=== PATIENT | female | born 1965 | race Caucasian/White ===

== ENCOUNTER → 2017-12-31 12:43 | Outpatient (REF) | payer OTHER, SELFPAY ==
[2017-12-31 14:06] LABS: ALT 23 U/L (12-78); AST 20 U/L (15-37); Albumin 3.9 g/dL (3.4-5.0); Alkaline Phosphatase 88 U/L (46-116); Anion Gap 11.2 mmol/L (3-11); BUN 7 mg/dL (7-18); Bilirubin, Total 0.3 mg/dL (0.2-1.0); CO2 25.8 mmol/L (21.0-32.0); CREATININE 0.63 mg/dL (0.55-1.02); Calcium 8.6 mg/dL (8.5-10.1); Chloride 103 mmol/L (98-107); Glucose 107 mg/dL (70-100); Potassium 4.4 mmol/L (3.5-5.1); Sodium 140 mmol/L (136-145); Total Protein 7.3 g/dL (6.4-8.2)
[2017-12-31 14:49] LABS: HCT 40.8 % (36.0-46.0); HGB 13.7 g/dL (12.0-15.5); Mean Corp. HGB Concentration 33.6 g/dL (32.0-36.0); Mean Corpuscular Hemoglobin 31.9 pg (27.0-33.0); Mean Corpuscular Volume 95.1 fL (80-95); Mean Platelet Volume 10.3 fL (8.0-11.0); Platelet Count 253 x1000/uL (130-400); RBC 4.29 m/cumm (4.00-5.20); RBC Distribution Width 13.6 % (11.7-14.6); White Blood Cell Count 7.58 k/cumm (4.4-10.8)
== END ==
LOC: NCHCN 12:43
PROVIDERS: PCP Nurse Practitioner Family; Visit Provider Nurse Practitioner Family
DX: M79.606 Pain in leg, unspecified (principal); Z01.89 Encounter for other specified special examinations
CPT/HCPCS: 80053; 85027

== ENCOUNTER → 2018-01-16 19:27 | Outpatient (REF) | payer OTHER, SELFPAY ==
[2018-01-16 19:59] LABS: Anion Gap 9.3 mmol/L (3-11); BUN 11 mg/dL (7-18); CO2 25.7 mmol/L (21.0-32.0); CREATININE 0.63 mg/dL (0.55-1.02); Calcium 8.7 mg/dL (8.5-10.1); Chloride 103 mmol/L (98-107); Glucose 176 mg/dL (70-100); Potassium 4.1 mmol/L (3.5-5.1); Sodium 138 mmol/L (136-145)
[2018-01-16 20:09] LABS: Bilirubin Negative (Negative); Blood Negative (Negative); Clarity Cloudy; Glucose Negative (Negative); Ketones Negative (Negative); Leukocyte Esterase Negative (Negative); Nitrite Negative (Negative); Specific Gravity >= 1.030 (1.005-1.025); Urobilinogen 0.2 EU/dL (Up TO 0.2); pH 5.5 (5-8)
[2018-01-16 20:25] LABS: HDL Cholesterol 92 mg/dL (40-60); LDL CHOLESTEROL 107 mg/dL (<100)
== END ==
LOC: NCHCN 19:27
PROVIDERS: PCP Nurse Practitioner Family; Visit Provider Nurse Practitioner Family
DX: I10 Essential (primary) hypertension (principal); I73.9 Peripheral vascular disease, unspecified
CPT/HCPCS: 80048; 83721; 81003; 83718

== ENCOUNTER 2018-01-30 20:01 | Outpatient (REF) | payer OTHER, SELFPAY ==
[2018-01-30 21:35] LABS: Anion Gap 8.5 mmol/L (3-11); BUN 13 mg/dL (7-18); CO2 28.5 mmol/L (21.0-32.0); CREATININE 0.64 mg/dL (0.55-1.02); Calcium 8.6 mg/dL (8.5-10.1); Chloride 102 mmol/L (98-107); Glucose 189 mg/dL (70-100); Potassium 4.5 mmol/L (3.5-5.1); Sodium 139 mmol/L (136-145)
== END 2018-01-30 20:21 ==
LOC: NCHCN 20:01
PROVIDERS: PCP Nurse Practitioner Family; Visit Provider Nurse Practitioner Family
DX: I10 Essential (primary) hypertension (principal)
CPT/HCPCS: 80048

== ENCOUNTER 2019-01-29 09:01 | Outpatient (CLI) | payer SELFPAY ==
[2019-01-29 10:33] LABS: Calculated LDL 55 mg/dL; Cholesterol 149 mg/dL (50-200); HDL Cholesterol 81 mg/dL (40-60); Triglyceride 69 mg/dL (30-150)
== END 2019-01-29 09:21 ==
PROVIDERS: PCP Nurse Practitioner Family; Visit Provider Internal Medicine Cardiovascular Disease
DX: I73.9 Peripheral vascular disease, unspecified (principal)
CPT/HCPCS: 36415; 80061

== ENCOUNTER 2020-03-12 03:31 | Outpatient (CLI) | payer OTHER, SELFPAY ==
--- NOTE | 2020-03-12 | DI.US_ITS ---
EXAM: US SOFT TISSUE EXTREMITY CLINICAL HISTORY: LT THUMB PAIN, ? GANGLION CYST,M79.645. TECHNIQUE: Ultrasound was performed using standard protocol. COMPARISON: No exams were available for comparison FINDINGS: Sonographic assessment utilizing grayscale and color Doppler imaging was performed and targeted to th e area of clinical concern. No ganglion cyst or mass is identified. No soft tissue edema is seen. No joint effusion is seen. IMPRESSION: Negative ultrasound of the left thumb. No ganglion cyst is identified. DATA REPOSITORY:
== END 2020-03-12 03:51 ==
PROVIDERS: PCP Nurse Practitioner Family; Visit Provider Nurse Practitioner Family
DX: M79.645 Pain in left finger(s) (principal)
CPT/HCPCS: 76881

== ENCOUNTER 2020-12-13 09:45 | Outpatient (REF) | payer OTHER, MEDICAID, SELFPAY ==
[2020-12-13 13:33] LABS: HCT 41.4 % (36.0-46.0); HGB 13.9 g/dL (11.2-15.7); MCH 31.2 pg (27.0-33.0); MCHC 33.6 % (32.0-36.0); MPV 10.2 fL (8.0-11.0); Platelet Count 314 10^3/uL (130-400); RBC 4.45 10^6/uL (3.93-5.22); RDW 14.6 % (11.7-14.6); RDW-SD 50.4 fL; WBC 7.19 10^3/uL (4.4-10.8)
[2020-12-13 14:06] LABS: Hemoglobin A1C 6.4 % (<5.7)
[2020-12-13 14:09] LABS: ALT 31 U/L (14-59); AST 23 U/L (15-37); Albumin 4.2 g/dL (3.4-5.0); Alkaline Phosphatase 102 U/L (46-116); Anion Gap 4.5 mmol/L (3-11); BUN 11 mg/dL (7-18); Bilirubin, Total 0.3 mg/dL (0.2-1.0); CO2 26.5 mmol/L (21.0-32.0); CREATININE 0.6 mg/dL (0.55-1.02); Calcium 9.4 mg/dL (8.5-10.1); Calculated LDL 79 mg/dL (<100); Chloride 107 mmol/L (98-107); Cholesterol 171 mg/dL (<200); Glucose 123 mg/dL (74-106); HDL Cholesterol 86 mg/dL (40-60); Potassium 3.9 mmol/L (3.5-5.1); Sodium 138 mmol/L (136-145); Total Protein 7.5 g/dL (6.4-8.2); Triglyceride 34 mg/dL (<150); Vitamin B12 425 pg/mL (193-986)
== END 2020-12-13 09:46 | disposition home or self-care (01) ==
LOC: NCHCN 09:45
PROVIDERS: PCP Nurse Practitioner Family; Visit Provider Nurse Practitioner
DX: R73.09 Other abnormal glucose (principal); I10 Essential (primary) hypertension; F32.9 Major depressive disorder, single episode, unspecified; I73.9 Peripheral vascular disease, unspecified; F10.11 Alcohol abuse, in remission
CPT/HCPCS: 80053; 80061; 85027; 82607; 83036

== ENCOUNTER 2021-10-19 16:43 | Outpatient (REF) | payer MEDICAID, SELFPAY ==
[2021-10-19 16:18] LABS: ALT 35 U/L (14-59); AST 20 U/L (15-37); Albumin 4.2 g/dL (3.4-5.0); Alkaline Phosphatase 110 U/L (46-116); Anion Gap 9.7 mmol/L (3-11); BUN 9 mg/dL (7-18); Bilirubin, Total 0.4 mg/dL (0.2-1.0); CO2 26.3 mmol/L (21.0-32.0); CREATININE 0.6 mg/dL (0.55-1.02); Calculated LDL 85 mg/dL (<100); Chloride 106 mmol/L (98-107); Cholesterol 182 mg/dL (<200); Glucose 129 mg/dL (74-106); HDL Cholesterol 90 mg/dL (40-60); Potassium 4.6 mmol/L (3.5-5.1); Sodium 142 mmol/L (136-145); Total Protein 7.4 g/dL (6.4-8.2); Triglyceride 38 mg/dL (<150)
[2021-10-19 17:59] LABS: Hemoglobin A1C 6.4 % (<5.7)
== END 2021-10-19 16:44 | disposition home or self-care (01) ==
LOC: NCHCN 16:43
PROVIDERS: PCP Nurse Practitioner Family; Visit Provider Nurse Practitioner Family
DX: R73.09 Other abnormal glucose (principal); I10 Essential (primary) hypertension; F17.200 Nicotine dependence, unspecified, uncomplicated; I73.9 Peripheral vascular disease, unspecified
CPT/HCPCS: 80053; 80061; 83036

== ENCOUNTER 2022-09-04 16:16 | Outpatient (REF) | payer MEDICAID, SELFPAY ==
[2022-09-04 16:56] LABS: Abs Immature Grans 0.02 10^3/uL (0.0-0.06); Absolute Basophil Count 0.05 10^3/uL (0.0-0.2); Absolute Eosinophil Count 0.03 10^3/uL (0.0-0.7); Absolute Lymphocyte Count 2.57 10^3/uL (1.2-3.4); Absolute Monocyte Count 0.53 10^3/uL (0.1-0.8); Absolute Neutrophil Count 5.89 10^3/uL (1.2-6.7); Basophils % 0.6; Eosinophils % 0.3; HCT 38.6 % (36.0-46.0); Immature Grans % 0.2; Lymphocytes % 28.3; MCH 31.3 pg (27.0-33.0); MCHC 33.7 % (32.0-36.0); MCV 93 fL (80-95); MPV 10.2 fL (8.0-11.0); Monocytes % 5.8; Neutrophils % 64.8; Platelet Count 344 10^3/uL (130-400); RBC 4.15 10^6/uL (3.93-5.22); RDW 14.1 % (11.7-14.6); RDW-SD 48.2 fL; WBC 9.09 10^3/uL (4.4-10.8)
[2022-09-04 17:19] LABS: Iron 73 ug/dL (50-170); Total Iron Binding Capacity 315 ug/dL (250-450); Transferrin Sat 23 % (15-50)
[2022-09-04 17:24] LABS: Hemoglobin A1C 6.8 % (<5.7)
[2022-09-04 17:59] LABS: ALT 27 U/L (14-59); AST 22 U/L (15-37); Albumin 4.3 g/dL (3.4-5.0); Alkaline Phosphatase 103 U/L (46-116); Anion Gap 8.6 mmol/L (3-11); BUN 13 mg/dL (7-18); Bilirubin, Total 0.4 mg/dL (0.2-1.0); CO2 26.4 mmol/L (21.0-32.0); CREATININE 0.6 mg/dL (0.55-1.02); Chloride 106 mmol/L (98-107); Estimated GFR 105.28 (mL/min/1.73m2); Ferritin 118 ng/mL (8-252); Glucose 111 mg/dL (74-106); Potassium 4.2 mmol/L (3.5-5.1); Sodium 141 mmol/L (136-145); TSH (W/Ref FT4) 0.92 uIU/mL (0.36-3.74); Total Protein 7.5 g/dL (6.4-8.2); Vitamin B12 448 pg/mL (193-986)
== END 2022-09-04 16:17 | disposition home or self-care (01) ==
LOC: NCHCN 16:16
PROVIDERS: PCP Nurse Practitioner Family; Visit Provider Nurse Practitioner Family
DX: I10 Essential (primary) hypertension (principal); R63.4 Abnormal weight loss; F10.20 Alcohol dependence, uncomplicated; R73.03 Prediabetes; F17.210 Nicotine dependence, cigarettes, uncomplicated; I73.89 Other specified peripheral vascular diseases; R73.09 Other abnormal glucose; R79.89 Other specified abnormal findings of blood chemistry
CPT/HCPCS: 80053; 82607; 82728; 83036; 83540; 83550; 84443; 85025

== ENCOUNTER 2022-09-06 07:48 | Outpatient (CLI) | payer MEDICAID, SELFPAY ==
--- NOTE | 2022-09-06 | DI.RAD_ITS ---
Exam(s) XR CHEST 2V PA LATERAL EXAM: XR CHEST 2V PA LATERAL CLINICAL HISTORY: ABNL WT LOSS, R63.4,TOBACCO ABUSE, F17.200 TECHNIQUE: 2D digital imaging was performed of the chest. Two images were obtained. PA and lateral views were obtained. COMPARISON: No exams were available for comparison FINDINGS: MEDIASTINUM: Normal. HEART: Normal. PULMONARY VASCULATURE: Normal. LUNGS: Clear. PLEURAL SPACE: No pleural effusion or pneumothorax. BONE:Within normal limits for the patient's age. OTHER FINDINGS:Normal. IMPRESSION: No acute pulmonary findings. DATA REPOSITORY: RADIATION DOSE DELIVERED:
== END 2022-09-06 08:08 ==
LOC: DI 07:49
PROVIDERS: PCP Nurse Practitioner Family; Visit Provider Nurse Practitioner Family
DX: R63.4 Abnormal weight loss (principal); F17.200 Nicotine dependence, unspecified, uncomplicated
CPT/HCPCS: 71046

== ENCOUNTER 2022-09-26 01:22 | Outpatient (CLI) | payer MEDICAID, SELFPAY ==
--- NOTE | 2022-09-26 | DI.CTLCSR_ITS ---
Exam(s) CT CHEST LUNG CANCER SCREEN EXAM: CT CHEST LUNG CANCER SCREEN CLINICAL HISTORY: SCREENING FOR LUNG CA, TOBACCO ABUSE, F17.200. TECHNIQUE: Imaging Protocol: Low Dose Technique CONTRAST MATERIAL: None COMPARISON: CR XR CHEST 2V PA LATERAL from 09/06/2022 FINDINGS: CHEST: LUNGS: There are no ominous pulmonary nodules. There are no confluent infiltrates. No pleural effusi ons. MEDIASTINUM: There is no obvious hilar nor mediastinal adenopathy. CARDIAC: Heart size is normal. There is no pericardial effusion.Caliber of the thoracic aorta is wit hin normal limits. OTHER: OSSEOUS: No significant osseous lesions.No fractures.. IMPRESSION: 1. No significant pulmonary nodules. No infiltrates 2. No pleural effusions. 3. Lung RADS Cat 1 - Negative: No nodules and definitely benign nodules Lung-RADS 1.0 CATEGORIES: Category 0 - Prior chest CT exam(s) being located for comparison. Category 1 - Annual screening in 12 months. No nodules or definitely benign nodules. Category 2 - Annual screening in 12 months. Benign appearance. Nodules with low likelihood of becomin g active cancer. Category 3 - 6-month follow-up. Probably benign. Short-term follow-up suggested. Nodules with low lik elihood of becoming active cancer. Category 4A - 3-month follow-up and CT/PET if >8 mm in size. Suspicious finding. Findings which requi re additional testing. Category 4B - Findings which require additional testing and tissue sampling. Category 4X - Category 3 or 4 nodules with additional features or imaging findings that increases the suspicion of malignancy. Modifier S- Potentially clinically significant findings (non lung cancer) RADIATION DOSE DELIVERED: 77.24mGy.cm Total DLP DATA REPOSITORY: All CT scans at this facility are submitted to the National Radiology Data Registry (NRDR) Dose Index Registry (DIR) with the [employer] (ACR). RADIATION OPTIMIZATION: All CT scans at this facility use at least one of these dose optimization te chniques: automated exposure control; mA and/or kV adjustment per patient size (includes targeted exa ms where dose is matched to clinical indication); or iterative reconstruction.
== END 2022-09-26 01:42 ==
LOC: DI 01:22
PROVIDERS: PCP Nurse Practitioner Family; Visit Provider Nurse Practitioner Family
DX: F17.200 Nicotine dependence, unspecified, uncomplicated (principal)
CPT/HCPCS: 71271

== ENCOUNTER 2022-10-31 00:42 | Outpatient (CLI) | payer MEDICAID, SELFPAY ==
--- NOTE | 2022-10-31 08:01 | DI.MAMMO_ITS ---
Exam(s) MAMMO SCREENING EXAM: MAMMO SCREENING CLINICAL HISTORY: SCREENING, Z12.39. TECHNIQUE: Bilateral full field digital CC and MLO mammographic images were obtained with 3D tomosyn thesis and utilizing computer aided detection (CAD). COMPARISON: None. This is a baseline mammogram on this 57-year-old patient. FINDINGS: There are no CAD designations. No significant findings in left breast. In the right breast there is a lobulated 1.2 x1.0 cm nodule the medial aspect of the breast located a pproximately 7 cm in from the nipple on the CC view. There are no malignant-appearing microcalcifica tion groups in this region nor elsewhere in either breast. There is no significant architectural distortion nor skin thickening-retraction. IMPRESSION: 1. No radiographic evidence of malignancy in left breast. 2. There is a nodule in the medial aspect of the right breast measuring approximately 12 x 10 mm. Sp ot compression view and ultrasound recommended. BI-RADS Category 0 - Assessment Incomplete: Need additional imaging evaluation Breast Density - Category B - Scattered areas of fibroglandular density Breast density Category C or D implies that the patient has dense breast tissue. Dense breast tissue can make it harder to find cancer on a mammogram. Dense breast tissue is also associated with an incr eased risk of breast cancer. This information about the result of the mammogram report was provided to the patient to raise their awareness. Use this report when you speak with the patient about their risks for breast cancer, which includes their family history. At that time, you may recommend additional screening tests (Ultrasoun d or MRI) as these tests may add significant information. A negative radiographic report should not delay biopsy if a dominant or clinically suspicious mass is present. Up to ten percent of cancers are not identified on mammography. A negative report may reinforce clinical impression. Adenosis and dense breasts may obscure an underlying neoplasm. False positive reports average 6 to 10%. Patient will receive a letter notifying them of these results.
== END 2022-10-31 01:02 ==
LOC: DI 00:43
PROVIDERS: PCP Nurse Practitioner Family; Visit Provider Nurse Practitioner Family
DX: Z12.31 Encounter for screening mammogram for malignant neoplasm of breast (principal); R92.8 Other abnormal and inconclusive findings on diagnostic imaging of breast
CPT/HCPCS: 77063; 77067

== ENCOUNTER 2022-11-10 00:18 | Outpatient (CLI) | payer MEDICAID, SELFPAY ==
--- NOTE | 2022-11-10 | DI.US_ITS ---
Exam(s) MG MAMMO SCREEN CALL BACK UNI US BREAST RT LIMITED EXAM: MG MAMMO SCREEN CALL BACK UNI and U/S breast RT limited CLINICAL HISTORY: NODULE RT BREAST R92.8 ABNL MAMMO. TECHNIQUE: Craniocaudal and mediolateral oblique Full Field Digital Mammography views of the right b reast with Computer Aided Diagnosis followed by Tomosynthesis and right breast ultrasound. COMPARISON: Comparison is made with prior examinations. FINDINGS: Mammography/Tomosynthesis: Masses/Architectural Distortion: The ovoid soft tissue in the medial right breast persists on of the right CC view. It is less prominent on the right MLO additional view. No areas of architectural dis tortion are seen. Microcalcifictions: No suspicious pleomorphic-type are seen. Skin Thickening/Nipple Retraction: None. Limited right breast US: Echotexture: Normal appearance of the glandular tissue. Shadowing: No suspicious foci. Cyst: There is a 3 x 2 x 4 mm cyst in the retroareolar region of the right breast. Solid lesions: There is an ovoid nodule at the 3 o'clock position of the right breast 3 cm from the n ipple measuring 1 x 3 x 1 cm. This would appear to correspond to the mammographic abnormality. This may represent a benign lesion such as a fibroadenoma. Ductal dilation: None. IMPRESSION: 1. No definite evidence for malignancy is noted at this time. 2. A six-month follow-up right mammogram and right breast ultrasound are requested for re-evaluation. 3. The findings were discussed with the patient on the date of the examination. BI-RADS Category 3 - 6 month - Probably Benign Finding: Recommend follow-up imaging in 6 months Breast Density - Category C - Heterogeneously dense Breast density Category C or D implies that the patient has dense breast tissue. Dense breast tissue can make it harder to find cancer on a mammogram. Dense breast tissue is also associated with an incr eased risk of breast cancer. This information about the result of the mammogram report was provided to the patient to raise their awareness. Use this report when you speak with the patient about their risks for breast cancer, which includes their family history. At that time, you may recommend additional screening tests (Ultrasoun d or MRI) as these tests may add significant information. A negative radiographic report should not delay biopsy if a dominant or clinically suspicious mass is present. Up to ten percent of cancers are not identified on mammography. A negative report may reinforce clinical impression. Adenosis and dense breasts may obscure an underlying neoplasm. False positive reports average 6 to 10%. Patient will receive a letter notifying them of these results.
== END 2022-11-10 00:38 ==
LOC: DI 00:18
PROVIDERS: PCP Nurse Practitioner Family; Visit Provider Nurse Practitioner Family
DX: Z12.31 Encounter for screening mammogram for malignant neoplasm of breast (principal); N60.01 Solitary cyst of right breast; N63.12 Unspecified lump in the right breast, upper inner quadrant
CPT/HCPCS: 76642; 77063; 77067

== ENCOUNTER → 2023-05-15 00:38 | Outpatient (CLI) | payer MEDICAID, SELFPAY ==
--- NOTE | 2023-05-15 | DI.US_ITS ---
Exam(s) MG MAMMO DIAGNOSTIC UNI US BREAST RT LIMITED EXAM: MG MAMMO DIAGNOSTIC UNI CLINICAL HISTORY: ABNL MAMMO R92.8 6 MO FU. TECHNIQUE: Craniocaudal and mediolateral oblique spot compression digital Mammography views of the b reast with Tomosynthesis and breast ultrasound. COMPARISON: MG MG MAMMO SCREENING from 10/31/2022 MG MG MAMMO SCREEN CALL BACK UNI from 11/10/2022 US US BREAST RT LIMITED from 11/10/2022 FINDINGS: Mammography/Tomosynthesis: Masses/Architectural Distortion: No change in ovoid circumscribed nodule in the medial right breast. Microcalcifictions: No suspicious pleomorphic-type are seen. Skin Thickening/Nipple Retraction: None. Right breast US: Echotexture: Normal appearance of the glandular tissue. Shadowing: No suspicious foci. Cyst: None. Solid lesions: Stable appearance of circumscribed ovoid isoechoic nodule a 9 millimeters. Ductal dilation: None. IMPRESSION: 1. No evidence of malignancy is noted. 2. Bilateral screening mammography due in 6 months. 3. The findings were discussed with the patient on the date of the examination. BI-RADS Category 2 - Benign Findings Breast Density - Category C - Heterogeneously dense A mammogram that demonstrates density of C or D indicates the patient's breast tissue is dense. Dense breast tissue is very common and is not abnormal, but dense breast tissue can make it harder to find cancer on a mammogram. Also, dense breast tissue may increase their breast cancer risk. This informa tion about the result of the mammogram report was provided to the patient to raise their awareness. U se this report when you speak with the patient about their risks for breast cancer, which includes th eir family history. At that time, you may recommend for more screening tests (Ultrasound or MRI) as t hey might be useful based on their risk. A negative radiographic report should not delay biopsy if a dominant or clinically suspicious mass is present. Up to ten percent of cancers are not identified on mammography. A negative report may reinforce clinical impression. Adenosis and dense breasts may obscure an underlying neoplasm. False positive reports average 6 to 10%. Patient will receive a letter notifying them of these results.
== END ==
PROVIDERS: PCP Nurse Practitioner Family; Visit Provider Nurse Practitioner Family
DX: Z12.31 Encounter for screening mammogram for malignant neoplasm of breast (principal); R92.8 Other abnormal and inconclusive findings on diagnostic imaging of breast
CPT/HCPCS: 76642; 77061; 77065; G0279

== ENCOUNTER 2023-07-04 13:45 | Outpatient (REF) | payer MEDICAID, SELFPAY ==
[2023-07-04 17:40] LABS: ALT 24 U/L (14-59); AST 22 U/L (15-37); Albumin 4.2 g/dL (3.4-5.0); Alkaline Phosphatase 109 U/L (46-116); Anion Gap 10.2 mmol/L (3-11); BUN 11 mg/dL (7-18); Bilirubin, Total 0.3 mg/dL (0.2-1.0); CO2 28.8 mmol/L (21.0-32.0); CREATININE 0.6 mg/dL (0.55-1.02); Calcium 9.7 mg/dL (8.5-10.1); Calculated LDL 74 mg/dL (<100); Chloride 106 mmol/L (98-107); Cholesterol 167 mg/dL (<200); Estimated GFR 104.63 (mL/min/1.73m2); Glucose 129 mg/dL (74-106); HDL Cholesterol 87 mg/dL (40-60); Hemoglobin A1C 6.5 % (<5.7); Potassium 4.5 mmol/L (3.5-5.1); Sodium 145 mmol/L (136-145); Triglyceride 31 mg/dL (<150)
== END 2023-07-04 13:46 | disposition home or self-care (01) ==
LOC: NCHCN 13:45
PROVIDERS: PCP Nurse Practitioner Family; Referring Provider Nurse Practitioner Family; Visit Provider Nurse Practitioner Family
DX: R73.03 Prediabetes (principal); E78.5 Hyperlipidemia, unspecified
CPT/HCPCS: 80053; 80061; 83036

== ENCOUNTER → 2023-12-04 01:07 | Outpatient (CLI) | payer MEDICAID, SELFPAY ==
--- OUTSIDE RECORDS SUMMARY | 2023-12-04 01:08 | XMS_ITS | Encounter Summary ---
Author Organization [facility] [address] Care Team Providers Care Air Cargo Specialist Name Role Phone Beena Wilkes APRN Primary Care Provider Encounter Details Date Type Department Care Team (Late st Contact Info) Description 05/02/2019 9:30 AM EST Tech [place] [address] Navarro Gilbert, GERRY Peripheral vascular disease, unspecified; Aortoiliac occlusive disease Social History Tobacco Use Types Packs/Day Years Used Date Smoking Tobacco: Former Cigarettes 0 0 2019 - 2019 Smokeless Tobacco: Never Alcohol Use Standard Drinks/Week Comments Yes 35 (1 standard drink = 0.6 oz pure alcohol) per pt, was asked to stop between now and surgery 03/07 Sex and Gender Information Value Date Recorded Sex Assigned at Not on file Gender Identity Not on file Sexual Orientation Not on file documented as of this encounter Plan of Treatment Not on file documented as of this encounter Procedures Procedure Name Priority Date/Time Associated Diagnosis Comments DUPLEX AORTO BIFEM GRAFT Routine 05/02/2019 8:44 AM EST Peripheral vascular disease, unspecified SHA, LEGS, MULTIPLE LEVELS Routine 05/02/2019 8:44 AM EST Aortoiliac occlusive disease documented in this encounter Results * SHA, legs, multiple levels (05/02/2019 8:44 AM EST) VB Text Report Department: Vascular Surgery Lab Patient: [id number] (EMILIANA FARMER) CPT: 37575 ICD10: Z48.812;I74.09;I 73.9 Referring Physician: PETE GILBERT ?? Phone: Indications: s/p Aorto Bi-femoral bypass graft (03/2019) now for f/u exam; ? change in SHA Diabetes mellitus: No ICD10 Diagnosis Code: Z48.812, I74.09, I73.9 Findings: Right ?Pressure (mm Hg) ?? SHA ??Waveform ?? Brachial Artery ?135 ? Dorsalis Pedis (Ankle) Artery ?141 ? 1.01 ??Triphasic ?? Posterior Tibial (Ankle) Artery ??139 ? 1.00 ??Triphasic ?? Left ? Pressure (mm Hg) ?? SHA ??Waveform ?? Brachial Artery ?139 ? Dorsalis Pedis (Ankle) Artery ?136 ? 0.98 ??Triphasic ?? Posterior Tibial (Ankle) Artery ??146 ? 1.05 ??Triphasic ?? Interpretation: RIGHT: No significant lower extremity arterial occlusive disease identifiable at rest. Normal ankle/brachial pressure ratios and ankle Doppler waveforms. No identifiable change when compared to the previous exam done 12/03/2018. LEFT: No significant lower extremity arterial occlusive disease identifiable at rest. Normal ankle/brachial pressure ratios and ankle Doppler waveforms. Significant improvement compared to previous exam done 12/03/2018. Previous ABIs with change from previous value: Date ?RIGHT DP ?? RIGHT PT ?? RT GR TOE ??RT Sec TOE ??0.63 ? 0.57 ? ---- ? ---- ??0.99(+.36) 1.06(+.49) ---- ? ---- ??0.99( .00) 0.98(-.08) ---- ? ---- ??1.00(+.01) 1.03(+.05) ---- ? ---- ??1.04(+.04) 1.05(+.02) 0.69 ? ---- Current ? 1.01(-.03) 1.00(-.05) ---- ? ---- Date ?LEFT DP ?LEFT PT ?LT GR TOE LT Sec TOE ??0.62 ? 0.56 ? ---- ? ---- ??0.98(+.36) 1.00(+.44) ---- ? ---- ??1.01(+.03) 0.99(-.01) ---- ? ---- ??0.94(-.07) 0.94(-.05) ---- ? ---- ??0.55(-.39) 0.56(-.38) 0.44 ? ---- Current ? 0.98(+.43) 1.05(+.49) ---- ? ---- Electronically Signed by: PETE GILBERT on 2019-05-02 12:34:43 PM [facility] VB Text Report End of Report V[facility] 05/02/2019 8:44 AM EST Pete Gilbert MD VASCULAR ORDERA BLES [facility] * Duplex AortoBifem Graft (05/02/2019 8:44 AM EST) VB Text Report Department: Vascular Surgery Lab Patient: [id number] (EMILIANA FARMER) CPT: 50753 ICD10: Z48.812;I73.9;I74. 5 Referring Physician: PETE GILBERT ?? Phone: Indications: s/p Aorto Bi-fem bypass graft (03/2019) for Left iliac artery occlusion now for f/u exam; ? patency ICD10 Diagnosis Code: Z48.812, I73.9, I74.5 Findings: Unilateral ? PSV (cm/s) ??EDV (cm/s) ?? Bifurcated Graft, Inflow Anastmosis ?42 ? 0 ?? Right ? PSV (cm/s) ??EDV (cm/s) ?? Bifurcated Graft, Distal ??Limb ?42 ? 0 ?? Bifurcated Graft, Limb Anastomosis ?53 ? 6 ?? Common femoral artery, Distal ? 80 ? 0 ?? Left ?PSV (cm/s) ??EDV (cm/s) ?? Bifurcated Graft, Distal ??Limb ?76 ?10 ?? Bifurcated Graft, Limb Anastomosis ?81 ? 8 ?? Common femoral artery, Distal ?115 ? 6 ?? Left Fem-Pop BK SEGMENT ?PSV (cm/s) ??EDV (cm/s) ?? Outflow Anastomosis, Left ?81 ? 8 ?? Left Outflow Artery (Graft) ? 115 ? 6 ?? Left Distal Graft ?76 ?10 ?? Right Fem-Pop BK SEGMENT ? PSV (cm/s) ??EDV (cm/s) ?? Outflow Anastomosis, Right ?53 ? 6 ?? Right Outflow Artery (Graft) ?80 ? 0 ?? Right Distal Graft ?42 ? 0 ?? Interpretation: Widely patent Right and Left distal limbs and distal anastomosis of Aorto Bi-femoral bypass graft with on evidence of hemodynamically significant stenosis. Limited visualization of Aorto Bi-femoral bypass graft due to overlying bowel gas. Comparison: ??No previous study in our vascular lab database for comparison. Electronically Signed by: PETE GILBERT on 2019-05-02 12:37:44 PM [facility] VB Text Report End of Report V[facility]CU[facility] 05/02/2019 8:44 AM EST Pete Gilbert MD VASCULAR ORDERA BLES [facility] documented in this encounter Visit Diagnoses Diagnosis Peripheral vascular disease, unspecified Aortoiliac occlusive 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 documented in this encounter Care Teams Air Cargo Specialist Relationship Specialty Start Date End Date Beena Wilkes, SHEREE [address] [place] [address] PCP - General Family Medicine 01/13/19 03/02/22 documented as of this encounter
--- OUTSIDE RECORDS SUMMARY | 2023-12-04 01:08 | XMS_ITS | Encounter Summary ---
Author Organization [facility] Address [facility] [place] [address] Care Team Providers Care Drawer In Name Role Phone Beena Wilkes APRN Primary Care Provider [phone] Reason for Visit * Reason Comments Wound Check wound check 2 wk Encounter Details Date Type Department Care Team (Late st Contact Info) Description 04/15/2019 3:00 PM EST Office Visit [place] [address] Claudine Helm PA [facility] [place] [address] Intermittent claudication Social History Tobacco Use Types Packs/Day Years [...] on file documented as of this encounter Last Filed Vital Signs Vital Sign Reading Time Taken Comments Blood Pressure 128/90 04/15/2019 2:54 PM EST Pulse 95 04/15/2019 2:54 PM EST Temperature - - Respiratory Rate 18 04/15/2019 2:54 PM EST Oxygen Saturation - - Inhaled Oxygen Concentration - - Weight 43.1 kg (95 lb) 04/15/2019 2:54 PM EST Height 156.2 cm (5' 1.5) 04/15/2019 2:54 PM EST Body Mass Index 17.66 04/15/2019 2:54 PM EST documented in this encounter Progress Notes * Claudine Helm PA - 04/15/2019 3:00 PM EST Vascular Follow-Up Reason for Visit: Emiliana Farmer is a 54 y.o. female presenting for follow-up s/p aortobifemoral bypass. HPI: Emiliana Farmer is a 54 y.o. female with a PMH of HTN, HLD and PAD with BLE claudication s/p distal infrarenal aortic stent graft and bilateral iliac stenting in 2018, now s/p aortobifemoral bypass for recurrent claudication on 03/31/19 states that since surgery she has had persistent R flank soreness, relieved by heatin pad and with oxycodone. The pain is intermittent and worse when moving around or laying on her R side. Ms. Farmer admits her legs feel great. She denies any episodes of abdominal pain, claudication and rest pain. Denies LE tissue loss. Patient admits to intermittent constipation since her surgery, but has had several BMs. Denies nausea and vomiting. On daily ASA and statin therapy. She quit smoking 2 weeks ago. Review of systems: Negative except as noted in HPI. Prior Vascular Hx: 03/05/2018:??[employer] 14 x 40 stent in distal-most abdominal aorta,??7 x 59 iCast stent graftin right common iliac artery, 7 x 59 iCast stent graft in left common iliac artery for BLE intermittent claudication. ([place]) 03/31/2019: Aortobifemoral bypass graft for recurrent claudication. ([place]) Atherosclerotic RF: DM (N) HTN (Y) CAD (N) CHF (N) HLD (Y) CVA (N) Tobacco (Y) - Former smoker. Problem List: Patient Active Problem List Diagnosis Code ??? Intermittent claudication I73.9 ??? History of renal stent [id number] ??? Hypertension I10 ??? Aortoiliac occlusive disease I74.09 ??? Drinks beer Z78.9 ??? Depression F32.9 ??? Gout M10.9 ??? PAD (peripheral artery disease) I73.9 Medications: Current Outpatient Medications on File Prior to Visit Medication Sig Dispense Refill ??? acetaminophen (TYLENOL) 325 mg Tablet Take 2 tablets by mouth every 6 hours as needed for Pain.30 tablet 1 ??? polyethylene glycol (MIRALAX) 17 gram Powder in Packet Take 17 g by mouth daily. 14 each 0 ??? senna-docusate (PERICOLACE) 8.6-50 mg Tablet Take 1 tablet by mouth 2 times daily. 60 tablet 11 ??? oxyCODONE (ROXICODONE) 5 mg Tablet Take 1 tablet by mouth every 4 hours as needed for Pain. 20 tablet 0 ??? atorvastatin (LIPITOR) 40 mg Tablet Take 1 tablet by mouth daily. 90 tablet 3 ??? amLODIPine (NORVASC) 10 mg Tablet Take 1 tablet by mouth daily. 90 tablet 3 ??? hydroCHLOROthiazide (HYDRODIURIL) 12.5 mg Tablet Take 2 tablets by mouth daily. 90 tablet 0 ??? nicotine (NICODERM CQ) 21 mg/[address] 21 patches onto the skin daily. 0 ??? aspirin 81 mg Tablet, Delayed Release (E.C.) Take 81 mg by mouth daily. No current facility-administered medications on file prior to visit. Physical Exam: GEN: Alert and appears stated age. Cooperative. In NAD. HEENT: Normocephalic and atraumatic. CV: RRR. S1/S2 present. Pulm: Clear to auscultation bilaterally. Abd: Midline abdominal incision site c/d/i - no erythema or drainage. No palpable aortic pulse or abdominal mass. Soft, non-distended, non-tender to palpation. Skin: Color, texture, turgor normal. No rashes or lesions. Neuro: No gross sensory or motor abnormality. Extremities: Bilateral groin incision sites c/d/i with abram in place - no surrounding erythema or drainage. BLE warm and pink. No edema. No wounds. Vascular Exam: R L Carotid Bruit No No Radial 2/2 2/2 Femoral 2/2 2/2 Popliteal 2/2 2/2 DP 2/2 2/2 PT 2/2 2/2 Labs: No results found for this or any previous visit (from the past 24 hour(s)). Studies: No results found for this or any previous visit (from the past 24 hour(s)). Assessment/Plan: Emiliana Farmer is a 54 y.o. female with claudication s/p aortobifemoral bypass, doingwell post-op from the standpoint of her arterial disease as she notes resolution of claudication symptoms. Incision sites well- healed without signs of infection, abram removed in clinic today. Recommend patient continue daily ASA and statin therapy. Continue tight control of co- morbidities and daily walking exercise as tolerated. Recommend patient alternate tylenol and ibuprofen for R flank pain, likely related to intra-operative positioning. She may take PRN OTC stool softener for constipation symptoms, recommend avoiding further opioid use. Follow-up on 05/02/19 with ABIs and arterial duplex. Instructed to call the clinic with any concerns prior to next appointment. Claudine Helm PA-C documented in this encounter Plan of Treatment Not on file documented as of this encounter Visit Diagnoses Diagnosis Intermittent claudication Peripheral vascular disease, unspecified documented in this encounter Care Teams Drawer In Relationship Specialty Start Date End Date Beena Wilkes APRN [address] [place] [address] PCP - General Family Medicine 01/13/19 03/02/22 documented as of this encounter
--- OUTSIDE RECORDS SUMMARY | 2023-12-04 01:08 | XMS_ITS | Encounter Summary ---
Author Organization [facility] [place] [address] Care Team Providers Care Credit And Collections Analyst Name Role Phone Beena Wilkes APRN Primary Care Provider [phone] Encounter Details Date Type Department Care Team (Late st Contact Info) Description 06/24/2019 Orders [place] [id number] Skye Harvey, [facility] Social History Tobacco Use Types Packs/Day Years [...] documented as of this encounter Visit Diagnoses Not on filedocumented in this encounter Care Teams Credit And Collections Analyst Relationship Specialty Start Date End Date Beena Wilkes APRN [address] [place] [address] PCP - General Family Medicine 01/13/19 03/02/22 documented as of this encounter
--- OUTSIDE RECORDS SUMMARY | 2023-12-04 01:08 | XMS_ITS | Encounter Summary ---
Author Organization [facility] Address [facility] [place] [address] Care Team Providers Care Career Specialist Name Role Phone Beena Wilkes APRN Primary Care Provider [phone] Encounter Details Date Type Department Care Team (Late st Contact Info) Description 02/11/2021 10:00 AM EDT Office Visit [place] [phone] Pete Álvarez MD [facility] [place] [address] Aortoiliac occlusive disease Social History Tobacco Use Types Packs/Day Years Used Date Smoking Tobacco: Every Day Cigarettes 0 Smokeless Tobacco: Never Alcohol Use Standard Drinks/Week [...] Sign Reading Time Taken Comments Blood Pressure 146/69 02/11/2021 10:11 AM EDT Pulse 68 02/11/2021 10:11 AM EDT Temperature - - Respiratory Rate 18 02/11/2021 10:11 AM EDT Oxygen Saturation - - Inhaled Oxygen Concentration - - Weight 45.4 kg (100 lb) 02/11/2021 10:11 AM EDT Height 157.5 cm (5' 2) 02/11/2021 10:11 AM EDT Body Mass Index 18.29 02/11/2021 10:11 AM EDT documented in this encounter Progress Notes * Pete Álvarez MD - 02/11/2021 10:00 AM EDT OUTPATIENT VASCULAR SURGERY FOLLOW-UP Reason for Visit: post-op visit History of Present Illness: Emiliana Farmer is a 56 y.o. female here for follow-up. She was last seen via telehealth on 10/03/19. She has h/o PAD s/p infrarenal aortic stent and kissing iliac stents 02/2018, with L femoral cutdown for failed access with subsequent L iliac stent occlusion. She underwent aortobifemoral bypass on 03/31/19 for lifestyle limiting claudication. She reports she has done wellsince surgery, however she continues to smoke. She also reports noticing a painless bulging on the right side of her incision. Atherosclerotic Risk Factors: (n) DM (y) HTN (n) CAD (n) CHF (y) Hyperlipidemia (n) CVA reports that she has been smoking cigarettes. She has been smoking about 0.75 packs per day for thepast 0.00 years. She has never used smokeless tobacco. Prior Vascular History: 03/05/2018:??Bard Lifestyle 14 x 40 stent in distal-most abdominal aorta,??7 x 59 iCast stent graftin right common iliac artery,??7 x 59 iCast stent graft in left common iliac artery Patient Active Problem List Diagnosis Code ??? Intermittent claudication I73.9 ??? History of renal stent [id number] ??? Hypertension I10 ??? Aortoiliac occlusive disease I74.09 ??? Drinks beer Z78.9 ??? Depression F32.9 ??? Gout M10.9 ??? PAD (peripheral artery disease) I73.9 Current Outpatient Medications: ??? nicotine polacrilex (COMMIT) 2 mg Lozenge, Place 2 mg inside cheek as needed for Smoking cessation., Disp: , Rfl: ??? acetaminophen (TYLENOL) 325 mg Tablet, Take 2 tablets by mouth every 6 hours as needed for Pain., Disp: 30 tablet, Rfl: 1 ??? atorvastatin (LIPITOR) 40 mg Tablet, Take 1 tablet by mouth daily., Disp: 90 tablet, Rfl: 3 ??? amLODIPine (NORVASC) 10 mg Tablet, Take 1 tablet by mouth daily., Disp: 90 tablet, Rfl: 3 ??? nicotine (NICODERM CQ) 21 mg/24 hr Patch 24 hr, Place 21 patches onto the skin daily., Disp: , Rfl: 0 ??? aspirin 81 mg Tablet, Delayed Release (E.C.), Take 81 mg by mouth daily., Disp: , Rfl: ??? hydroCHLOROthiazide (HYDRODIURIL) 12.5 mg Tablet, Take 2 tablets by mouth daily., Disp: 90 tablet, Rfl: 0 Allergies Allergen Reactions ??? Effexor [Venlafaxine] Pt unsure of reaction was 25 years ago ??? Trazodone Pt unsure of reaction was 25 years ago Review of Systems: Constitutional (weight change, fever) - Denies Neuro (dizziness, seizures, numbness, tingling) - Denies Eyes (vision) - Denies Ears, nose, throat (hearing) - Denies Cardiovascular (CP) - Denies Respiratory (SOB) - Denies GI (abd pain, nausea, emesis, blood in stool) - Denies (hematuria, dysuria, frequency) - Denies Muscoloskeletal (extremity pain, weakness) - Denies Skin (ulcers, rashes) - Denies Functional Status/Social Hx: Lives at home, +Tobacco Use Family Hx: Negative for Thrombosis, Bleeding Disorders Physical Exam: BP 146/69 (BP Location (NBP): Right arm, Patient Position: Sitting, BP Cuff Sizes: Adult (25-34 cm)) Pulse 68 Resp 18 Ht 157.5 cm (5' 2) Wt 45.4 kg (100 lb) BMI 18.29 kg/m?? General - NAD, appears stated age Neuro - Alert and Oriented, Motor Sensory grossly intact Skin - No prominent markings or lesions Ear, Nose, Throat - No masses, No lesions Cardiac - RRR, no murmurs Lungs - Clear Abd - Soft, scaphoid, NT, ND, well healed midline and femoral incisions, no evidence of hernia. There is a subtle fullness/ increased adipose on the right infraumbilical abdominal wall Musculoskeletal- full ROM upper and lower extremities Psych- alert oriented X3 Extremities - Warm, pink, no edema, delayed capillary refill on left. Well healed L femoral incision Vascular Exam: R L Carotid 2/2 bruit (n) 2/2 bruit (n) Radial 2/2 2/2 Femoral 2/2 2/2 Popliteal 2/2 2/2 DP 2/2 2/2 PT 2/2 2/2 Labs: Recent Results (from the past 72 hour(s)) SHA, legs, multiple levels Result Value Ref Range VB Text Report Department: Vascular Surgery Lab Patient: [id number] (EMILIANA FARMER) CPT: 01091 ICD10: I74.09 Referring Physician: PETE ÁLVAREZ Phone: Indications: f/u ABF bypass. Diabetes mellitus: no ICD10 Diagnosis Code: I74.09 Findings: Right Pressure (mm Hg) SHA Waveform Brachial Artery 153 Dorsalis Pedis (Ankle) Artery 160 1.00 Triphasic Posterior Tibial (Ankle) Artery 159 0.99 Triphasic Left Pressure (mm Hg) SHA Waveform Brachial Artery 160 Dorsalis Pedis (Ankle) Artery 156 0.98 Triphasic Posterior Tibial (Ankle) Artery 157 0.98 Triphasic Interpretation: RIGHT: No significant lower extremity arterial occlusive disease identifiable at rest. Normal ankle/brachial pressure ratios an d ankle Doppler waveforms. No significant change compared to previous exam. LEFT: No significant lower extremity arterial occlusive disease identifiable at rest. Normal ankle/brachial pressure ratios and ankle Doppler waveforms. No significant change compared to previous exam. Previous ABIs with change from previous value: Date RIGHT DP RIGHT PT RT GR TOE RT Sec TOE 0.63 0.57 ---- ---- 0.99(+.36) 1.06(+.49) ---- ---- 0.99( .00) 0.98(-.08) ---- ---- 1.00(+.01) 1.03(+.05) ---- ---- 1.04(+.04) 1.05(+.02) 0.69 ---- 1.01(-.03) 1.00(-.05) ---- ---- Current 1.00(-.01) 0.99(-.01) ---- ---- Date LEFT DP LEFT PT LT GR TOE LT Sec TOE 0.62 0.56 ---- ---- 0.98(+.36) 1.00(+.44) ---- ---- 1.01(+.03) 0.99(-.01) ---- ---- 0.94(-.07) 0.94(-.05) ---- ---- 0.55(-.39) 0.56(-.38) 0.44 ---- 0.98(+.43) 1.05(+.49) ---- ---- Current 0.98( .00) 0.98(-.07) ---- ---- VB Text Report End of Report Studies: No flowsheet data found. ? Assessment and Plan: 56 y.o. female with h/o PAD s/p aortic and kissing iliac stent grafts in 02/2018 with occlusion of the L iliac stent graft, and subsequent aortobifemoral bypass on 03/31/19 doing well. She is working with her PCP about quitting smoking and is going ot choose a quit date. Neishawill follow- up with me in 1 year with repeat ABIs. documented in this encounter Plan of Treatment Not on file documented as of this encounter Visit Diagnoses Diagnosis Aortoiliac occlusive 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 documented in this encounter Care Teams Career Specialist Relationship Specialty Start Date End Date Beena Wilkes APRN [address] [place] [address] PCP - General Family Medicine 01/13/19 03/02/22 documented as of this encounter
--- OUTSIDE RECORDS SUMMARY | 2023-12-04 01:08 | XMS_ITS | Encounter Summary ---
Author Organization [facility] [place] [address] Care Team Providers Care Screen Room Operator Name Role Phone Beena Wilkes APRN Primary Care Provider [phone] Reason for Visit * Reason Onset Date Comments Nicotine Dependence 05/08/2019 1 month foll ow-up Encounter Details Date Type Department Care Team (Late st Contact Info) Description 05/08/2019 Telephone [place] [address] Buck Watts, RN Nicotine Dependence (1 month follow-up) Social History Tobacco Use Types Packs/Day Years [...] on file documented as of this encounter Miscellaneous Notes * Telephone Encounter - Buck Watts, RN - 05/08/2019 10:13 AM EST DATE: 05/08/2019 NAME: Emiliana Farmer : 1965 Reason for Call: 1-month follow-up for Tobacco Treatment Pt doesn't feel that the patches are really working for her. She is in the process of waiting for appointment with PCP to see if Chantix may be a better option. I advised her that this office will befollowing up at the 6 month elfego and encouraged her to contact me with any questions or concerns she may have in the future. Buck Watts, MSN, RN-, [facility] Tobacco Vice President Sales [facility] Pager #[phone] documented in this encounter Plan of Treatment Not on file documented as of this encounter Visit Diagnoses Not on filedocumented in this encounter Care Teams Screen Room Operator Relationship Specialty Start Date End Date Beena Wilkes, ASSEMBLER CAMPER [address] [place] [address] PCP - General Family Medicine 01/13/19 03/02/22 documented as of this encounter
--- OUTSIDE RECORDS SUMMARY | 2023-12-04 01:08 | XMS_ITS | Encounter Summary ---
Author Organization [place] [address] Care Team Providers Care Flight Superintendent Name Role Phone Nancy Alfred APRN Primary Care Provider [phone] Encounter Details Date Type Department Care Team (Late st Contact Info) Description 03/03/2022 2:00 PM EDT Tech Visit [place] [phone] Vikash Black [place] Aortoiliac occlusive disease Social History Tobacco Use [...] Procedure Name Priority Date/Time Associated Diagnosis Comments SHA, LEGS, MULTIPLE LEVELS Routine 03/03/2022 1:34 PM EDT Aortoiliac occlusive disease documented in this encounter Results * SHA, legs, multiple levels (03/03/2022 1:34 PM EDT) VB Text Report Department: Vascular Surgery Lab Patient: [id number] (EMILIANA FARMER) CPT: 00430 Referring Physician: PETE GILBERT ?? Phone: Indications: F/u ABF Diabetes mellitus: no Findings: Right ?Pressure (mm Hg) ?? SHA ??Waveform ? Brachial Artery ?134 ? Dorsalis Pedis (Ankle) Artery ?142 ? 1.05 ??Biphasic-Rev ?? Posterior Tibial (Ankle) Artery ??130 ? 0.96 ??Biphasic-Rev ?? Left ? Pressure (mm Hg) ?? SHA ??Waveform ? Brachial Artery ?135 ? Dorsalis Pedis (Ankle) Artery ?129 ? 0.96 ??Biphasic-Rev ?? Posterior Tibial (Ankle) Artery ??136 ? 1.01 ??Triphasic ? Interpretation: RIGHT: No significant lower extremity arterial [...] ? ---- ??1.04(+.04) 1.05(+.02) 0.69 ? ---- ??1.01(-.03) 1.00(-.05) ---- ? ---- ??1.00(-.01) 0.99(-.01) ---- ? ---- Current ? 1.05(+.05) 0.96(-.03) ---- ? ---- Date ?LEFT DP ?LEFT PT ?LT GR TOE LT Sec TOE ??0.62 ? 0.56 ? ---- ? ---- ??0.98(+.36) 1.00(+.44) ---- ? ---- ??1.01(+.03) 0.99(-.01) ---- ? ---- ??0.94(-.07) 0.94(-.05) ---- ? ---- ??0.55(-.39) 0.56(-.38) 0.44 ? ---- ??0.98(+.43) 1.05(+.49) ---- ? ---- ??0.98( .00) 0.98(-.07) ---- ? ---- Current ? 0.96(-.02) 1.01(+.03) ---- ? ---- Electronically Signed by: CHENTE CALLAHAN MD on 2022-03-06 07:31:49 AM VASCUBASE VB Text Report End of Report VASCUBASE 03/03/2022 1:34 PM EDT Pete Gilbert MD VASCULAR ORDERA BLES VASCU[facility] documented in this encounter Visit Diagnoses Diagnosis Aortoiliac occlusive 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 documented in this encounter Care Teams Flight Superintendent Relationship Specialty Start Date End Date Nancy Alfred, MILL SET UP [address] [place] [address] PCP - General Family Medicine 03/03/22 documented as of this encounter
--- OUTSIDE RECORDS SUMMARY | 2023-12-04 01:08 | XMS_ITS | Encounter Summary ---
Author Organization [facility] Address [facility] [place] [address] Care Team Providers Care Electroencephalograph Technologist Name Role Phone Beena Wilkes APRN Primary Care Provider [phone] Encounter Details Date Type Department Care Team (Late st Contact Info) Description 06/24/2019 Orders [place] [address] Laura Quiros [facility] [place] [address] Aortoiliac occlusive disease; PAD (peripheral artery disease); Intermittent claudication Social History Tobacco Use Types [...] arterial embolism and thrombosis of abdominal aorta PAD (peripheral artery disease) Peripheral vascular disease, unspecified Intermittent claudication Peripheral vascular disease, unspecified documented in this encounter Care Teams Electroencephalograph Technologist Relationship Specialty Start Date End Date Beena Wilkes APRN [address] [place] [address] [address] [place], [place] [address] PCP - General Family Medicine 8/26/19 10/13/22 documented as of this encounter
--- OUTSIDE RECORDS SUMMARY | 2023-12-04 01:08 | XMS_ITS | Encounter Summary ---
Author Organization [place] [address] Care Team Providers Care Rod Bending Machine Operator Name Role Phone Beena Wilkes APRN Primary Care Provider [phone] Encounter Details Date Type Department Care Team (Late st Contact Info) Description 02/16/2022 Telephone [place] [phone] Rosy Austin Social History Tobacco Use Types Packs/Day Years [...] encounter Miscellaneous Notes * Telephone Encounter - Rosy Austin - 02/16/2022 11:02 AM EDT LVM X1 SENT RECALL LETTER X2 CLOSED RECALL. GM 02/16/22 SHA - PAD w claudication 1 YR F/U LISSA MOREIRA documented in this encounter Plan of Treatment Not on file documented as of this encounter Visit Diagnoses Not on filedocumented in this encounter Care Teams Rod Bending Machine Operator Relationship Specialty Start Date End Date Beena Wilkes APRN [address] [place], [place] [id number] PCP - General Family Medicine 01/13/19 03/02/22 documented as of this encounter
--- OUTSIDE RECORDS SUMMARY | 2023-12-04 01:08 | XMS_ITS | Clinical Summary ---
Author Organization [facility] Address [place] [address] Care Team Providers Care Programmer Name Role Phone Nancy Alfred APRN Primary Care Provider [phone] Allergies Active Allergy Reactions Criticality Noted Date Comments Venlafaxine 03/05/2018 Pt unsure of reaction was 25 years ago Trazodone 03/05/2018 Pt unsure of reaction was 25 years ago Medications Medication Sig Dispensed Refills Start Date End Date Status nicotine (NICODERM CQ) 21 mg/24 hr [address] 21 patches onto the skin daily. 0 01/16/2018 Active aspirin 81 mg Tablet, Delayed Release (E.C.) Take 81 mg by mouth daily. Active hydroCHLOROthiazide (HYDRODIURIL) 12.5 mg Tablet Take 2 tablets by mouth daily. 90 tablet 03/06/2018 Active atorvastatin (LIPITOR) 40 mg Tablet Take 1 tablet by mouth daily. 90 tablet 3 01/28/2019 Active amLODIPine (NORVASC) 10 mg Tablet Take 1 tablet by mouth daily. 90 tablet 3 01/28/2019 Active acetaminophen (TYLENOL) 325 mg Tablet Take 2 tablets by mouth every 6 hours as needed for Pain. 30 tablet 1 04/05/2019 Active Additional Information Patient not taking.Reported on 03/03/2022 nicotine polacrilex (COMMIT) [address] 2 mg inside cheek as needed for Smoking cessation. Active gabapentin (Neurontin) 300 mg capsule Take 300 mg by mouth 3 times daily. 03/02/2023 Active Active Problems Problem Noted Date Diagnosed Date PAD (peripheral artery disease) 03/27/2019 Drinks beer 01/28/2019 Overview (01/28/2019): As of Jan 2019, patient reports 5 beers per night with plans to taper off before vascular surgery in February. Depression 01/28/2019 Gout 01/28/2019 Aortoiliac occlusive disease 03/05/2018 Hypertension 01/08/2018 Intermittent claudication 12/31/2017 History of renal stent 12/31/2017 Social History Tobacco Use Types Packs/Day Years Used Date Smoking Tobacco: Every Day Cigarettes 0 Smokeless Tobacco: Never Tobacco Cessation:Ready to Q uit: Yes Alcohol Use Standard Drinks/Week Comments Yes 35 (1 standard drink = 0.6 oz pure alcohol) per pt, was asked to stop between now and surgery 03/07 Sex and Gender Information Value Date Recorded Sex Assigned at Not on file Gender Identity Not on file Sexual Orientation Not on file Last Filed Vital Signs Vital Sign Reading Time Taken Comments Blood Pressure 126/63 04/06/2023 1:56 PM EST Pulse 59 04/06/2023 1:56 PM EST Temperature 36.8 ??C (98.2 ??F) 04/05/2019 11:[address] Respiratory Rate 18 02/11/2021 10:11 AM EDT Oxygen Saturation 100% 04/05/2019 11:32 AM EST Inhaled Oxygen Concentration - - Weight 45.4 kg (100 lb) 04/06/2023 1:56 PM EST Height 154.9 cm (5' 1) 04/06/2023 1:56 PM EST Body Mass Index 18.89 04/06/2023 1:56 PM EST Plan of Treatment Health Maintenance Due Date Last Done Comments CT Colonography 1965 Colonoscopy 1966 Colorectal Cancer Screening 1965 FIT DNA 1965 FIT 1966 Sigmoidoscopy (10 year) with FIT yearly 1965 Sigmoidoscopy 1965 Pneumococcal Vaccine: At-Risk 5-64yrs (1 of 2 - PCV) 0 01/16/1972 HIV screen 01/16/1984 Hepatitis C Screening 01/16/1984 Hepatitis B vaccine (0-59 yrs) (1) 1985 Tdap adult 1985 Tetanus vaccine 1985 HPV test 01/16/1996 PAP Smear 01/16/1996 Breast Cancer Share Decision Needed 2006 Breast Cancer screening 2006 Zoster vaccine (1 of 2) 01/16/2016 Covid-19 Vaccine (1 - 2022-24 season) 2023 Influenza (Flu) vaccine (1 o f 1 - Influenza standard series) 01/20/2024 Medical Devices Implanted Type Area Automobile Accessories Installer Device Identifier Shelf Expiration Date Model / Serial / Lot Stent,Lstar,V asc,[id number],8 0cm ([id number]) - [id number] Implanted:Qty : 1 on 03/05/2018 by Yves Vegas MD at [facility] IMPLANTS N/A: Aorta [employer] - CR BARD 06/01/2020 [id number] / / [id number] Description:from IR inventor y Stent,Icast,C vr,7x59mm,120 cm ([id number]) - [id number] Implanted:Qty : 1 on 03/05/2018 by Yves Vegas MD at [facility] IMPLANTS Left: Arterial [employer] - [employer]E 08/27/2020 [id number] / [id number] / Description:left iliac arter y Stent,Icast,C vr,7x59mm,120 cm ([id number]) - [id number] Implanted:Qty : 1 on 03/05/2018 by Yves Vegas MD at [facility] IMPLANTS Right: Arterial [employer] - [employer] 08/31/2020 [id number] / [id number] / Description:right iliac marisol ry Graft,Hmgd,Kn t,Bifur,12x7m mx40 ([id number]) - [id number] Implanted:Qty : 1 on 03/31/2019 by Judy Gilbert MD at [facility] IMPLANTS N/A: Aorta [employer] - [employer]E 02/17/2022 [id number] / [id number] Advance Directives Documents on File Type Date Recorded Patient Substance Abuse Prevention Coordinator Expl anation Advance Directives and Bailey g Will 03/06/2019 10:41 AM * Full Code (Latest Code Status on File) Date Activated Date Inactivated Comments 03/31/2019 9:08 PM 04/05/2019 5:46 PM Question Answer Comments Does patient have capacity to make decision: Yes * Full Code Date Activated Date Inactivated Comments 03/05/2018 12:03 PM 03/06/2018 5:13 PM Question Answer Comments Does patient have capacity to make decision: Yes Care Teams Programmer Relationship Specialty Start Date End Date Nancy Alfred, CUSTOMER [place] [address] PCP - General Family Medicine 03/03/22
--- OUTSIDE RECORDS SUMMARY | 2023-12-04 01:08 | XMS_ITS | Encounter Summary ---
Author Organization [facility] Address [facility] [place] [address] Care Team Providers Care Senior Ios Software Engineer Name Role Phone Beena Wilkes APRN Primary Care Provider [phone] Encounter Details Date Type Department Care Team (Late st Contact Info) Description 09/22/2019 Telephone [place] [address] Iris Farmer RN Social History Tobacco Use Types Packs/Day Years [...] encounter Miscellaneous Notes * Telephone Encounter - Saba Alarcon - 09/23/2019 9:20 AM EDT [place]/RN checking w/ Dr Gilbert regarding urgency of scheduling. Waiting for answer. * Telephone Encounter - Iris Farmer RN - 09/22/2019 3:48 PM EDT Pt called to state that over the past couple of weeks she has developed an area near her navel thatis protruding and partially retractable. Pt states this area measures aprox 3 inches L x 3 inches Wand is sore. She states that she first noticed this protrusion after she stretched at work. Vascular RN consulted Dr. Gilbert and MD would like to see Pt in clinic without any studies this week. Request to have Pt set up with a clinic appt with Dr. Gilbert being sent to [facility]. Secretaries. documented in this encounter Plan of Treatment Not on file documented as of this encounter Visit Diagnoses Not on filedocumented in this encounter Care Teams Senior Ios Software Engineer Relationship Specialty Start Date End Date Beena Wilkes, SUPERVISOR DOPING [address] [place] [address] PCP - General Family Medicine 01/13/19 03/02/22 documented as of this encounter
--- OUTSIDE RECORDS SUMMARY | 2023-12-04 01:08 | XMS_ITS | Encounter Summary ---
Author Organization [facility] Address [facility] [place] [address] Care Team Providers Care Field Service Technician Poultry Name Role Phone Beena Wilkes APRN Primary Care Provider [phone] Encounter Details Date Type Department Care Team (Late st Contact Info) Description 05/02/2019 11:45 AM EST Office [place] [id number] Pete Álvarez MD [facility] [place] [address] Aortoiliac occlusive disease Social History Tobacco Use [...] Sign Reading Time Taken Comments Blood Pressure 118/67 05/02/2019 10:04 AM EST Pulse 77 05/02/2019 10:04 AM EST Temperature - - Respiratory Rate - - Oxygen Saturation - - Inhaled Oxygen Concentration - - Weight 43.1 kg (95 lb) 05/02/2019 10:04 AM EST Height 157.5 cm (5' 2) 05/02/2019 10:04 AM EST Body Mass Index 17.38 05/02/2019 10:04 AM EST documented in this encounter Progress Notes * Pete Álvarez MD - 05/02/2019 11:45 AM EST OUTPATIENT VASCULAR SURGERY FOLLOW-UP Reason for Visit: post-op visit History of Present Illness: Emiliana Farmer is a 54 y.o. female here for follow- up.She has h/o PAD s/p infrarenal aortic stent and kissing iliac stents 02/2018, with L femoral cutdown for failed access with subsequent L iliac stent occlusion. She underwent aortobifemoral bypass on 03/31/19 for lifestyle limiting claudication. She reports she has done well since surgery, however she recently started smoking again. She does report pain since the surgery over her right sacroiliac joint. Atherosclerotic Risk Factors: (n) DM (y) HTN (n) CAD (n) CHF (y) Hyperlipidemia (n) CVA reports that she quit smoking about 3 months ago. Her smoking use included cigarettes. She smoked 0.25 packs per day for 0.00 years. She has never used smokeless tobacco. Prior Vascular History: 03/05/2018:??Bard Lifestyle 14 x 40 stent in distal-most abdominal aorta,??7 x 59 iCast stent graftin right common iliac artery,??7 x 59 iCast stent graft in left common iliac artery Patient Active Problem List Diagnosis Code ??? Intermittent claudication I73.9 ??? History of renal stent [id number] ??? Hypertension I10 ??? Aortoiliac occlusive disease I74.09 ??? Drinks beer Z78.9 ??? Depression F32.9 ??? Gout M10.9 ??? PAD (peripheral artery disease) I73.9 Current Outpatient Medications: ??? acetaminophen (TYLENOL) 325 mg Tablet, Take 2 tablets by mouth every 6 hours as needed for Pain., Disp: 30 tablet, Rfl: 1 ??? polyethylene glycol (MIRALAX) 17 gram Powder in Packet, Take 17 g by mouth daily., Disp: 14 each, Rfl: 0 ??? senna-docusate (PERICOLACE) 8.6-50 mg Tablet, Take 1 tablet by mouth 2 times daily., Disp: 60 tablet, Rfl: 11 ??? oxyCODONE (ROXICODONE) 5 mg Tablet, Take 1 tablet by mouth every 4 hours as needed for Pain., Disp: 20 tablet, Rfl: 0 ??? atorvastatin (LIPITOR) 40 mg Tablet, Take 1 tablet by mouth daily., Disp: 90 tablet, Rfl: 3 ??? amLODIPine (NORVASC) 10 mg Tablet, Take 1 tablet by mouth daily., Disp: 90 tablet, Rfl: 3 ??? hydroCHLOROthiazide (HYDRODIURIL) 12.5 mg Tablet, Take 2 tablets by mouth daily., Disp: 90 tablet, Rfl: 0 ??? nicotine (NICODERM CQ) 21 mg/24 hr Patch 24 hr, Place 21 patches onto the skin daily., Disp: , Rfl: 0 ??? aspirin 81 mg Tablet, Delayed Release (E.C.), Take 81 mg by mouth daily., Disp: , Rfl: Allergies Allergen Reactions ??? 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 General - NAD, appears stated age Neuro - Alert and Oriented, Motor Sensory grossly intact Skin - No prominent markings or lesions Ear, Nose, Throat - No masses, No lesions Cardiac - RRR, no murmurs Lungs - Clear Abd - Soft, scaphoid, NT, ND, well healed midline and femoral incisions Musculoskeletal- full ROM upper and lower extremities Psych- alert oriented X3 Extremities - Warm, pink, no edema, delayed capillary refill on left. Well healed L femoral incision Vascular Exam: R L Carotid 2/2 bruit (n) 2/2 bruit (n) Radial 2/2 2/2 Femoral 2/2 2/2 Popliteal 2/2 2/2 DP 2/2 2/2 PT 2/2 2/2 Labs: Recent Results (from the past 72 hour(s)) Duplex AortoBifem Graft Result Value Ref Range VB Text Report Department: Vascular Surgery Lab Patient: [id number] (EMILIANA FARMER) CPT: 74195 ICD10: Z48.812;I73.9;I74.5 Referring Physician: PETE ÁLVAREZ Phone: Indications: s/p Aorto Bi-fem bypass graft (03/2019) for Left iliac artery occlusion now for f/u exam; ? patency ICD10 Diagnosis Code: Z48.812, I73.9, I74.5 Findings: Unilateral PSV (cm/s) EDV (cm/s) Bifurcated Graft, Inflow Anastmosis 42 0 Right PSV (cm/s) EDV (cm/s) Bifurcated Graft, Distal Limb 42 0 Bifurcated Graft, Limb Anastomosis 53 6 Common femoral artery, Distal 80 0 Left PSV (cm/s) EDV (cm/s) Bifurcated Graft, Distal Limb 76 10 Bifurcated Graft, Limb Anastomosis 81 8 Common femoral artery, Distal 115 6 Lef t Fem-Pop BK SEGMENT PSV (cm/s) EDV (cm/s) Outflow Anastomosis, Left 81 8 Left Outflow Artery (Graft) 115 6 Left Distal Graft 76 10 Right Fem-Pop BK SEGMENT PSV (cm/s) EDV (cm/s) Outflow Anastomosis, Right 53 6 Right Outflow Artery (Graft) 80 0 Right Distal Graft 42 0 Interpretation: Widely patent Right and Left distal limbs and distal anastomosis of Aorto Bi-femoral bypass graft with on evidence of hemodynamically significant stenosis. Limited visualization of Aorto Bi-femoral bypass graft due to overlying bowel gas. Comparison: No previous study in our vascular lab database for comparison. VB Text Report End of Report SHA, legs, multiple levels Result Value Ref Range VB Text Report Department: Vascular Surgery Lab Patient: [id number] (EMILIANA FARMER) CPT: 46846 ICD10: Z48.812;I74.09;I73.9 Referring Physician: PETE ÁLVAREZ Phone: Indications: s/p Aorto Bi-femoral bypass graft (03/2019) now for f/u exam; ? change in SHA Diabetes mellitus: No ICD10 Diagnosis Code: Z48.812, I74.09, I73.9 Findings: Right Pressure (mm Hg) SHA Waveform Brachial Artery 135 Dorsalis Pedis (Ankle) Artery 141 1.01 Triphasic Posterior Tibial (Ankle) Artery 139 1.00 Triphasic Left Pressure (mm Hg) SHA Waveform Brachial Artery 139 Dorsalis Pedis (Ankle) Artery 136 0.98 Triphasic Posterior Tibial (Ankle) Artery 146 1.05 Triphasic Interpretation: RIGHT: No significant lower extremity a rterial occlusive disease identifiable at rest. Normal ankle/brachial [...] 1.03(+.05) ---- ---- 1.04(+.04) 1.05(+.02) 0.69 ---- Current 1.01(-.03) 1.00(-.05) ---- ---- Date LEFT DP LEFT PT LT GR TOE LT Sec TOE 0.62 0.56 ---- ---- 0.98(+.36) 1.00(+.44) ---- ---- 20 07/04/26 1.01(+.03) 0.99(-.01) ---- ---- 0.94(-.07) 0.94(-.05) ---- ---- 0.55(-.39) 0.56(-.38) 0.44 ---- Current 0.98(+.43) 1.05(+.49) ---- ---- VB Text Report End of Report Studies: No flowsheet data found. ? Assessment and Plan: 54 y.o. female with h/o PAD s/p aortic and kissing iliac stent grafts in 02/2018 with occlusion of the L iliac stent graft, and subsequent aortobifemoral bypass on 03/31/19 doing well. I have recommended that she speak with her PCP about being referred to smoking cessation closer to her house as well as physical therapy to evaluate her R sacroiliac pain. She may return to work after 05/31/19. She will follow-up with me in 2 months for a follow-up. documented in this encounter Plan of Treatment Not on file documented as of this encounter Visit Diagnoses Diagnosis Aortoiliac occlusive 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 documented in this encounter Care Teams Field Service Technician Poultry Relationship Specialty Start Date End Date Beena Wilkes APRN [address] [place] [address] PCP - General Family Medicine 01/13/19 03/02/22 documented as of this encounter
--- OUTSIDE RECORDS SUMMARY | 2023-12-04 01:08 | XMS_ITS | Encounter Summary ---
Author Organization [facility] [place] [address] Care Team Providers Care Forwarder Operator Name Role Phone Nancy Alfred APRN Primary Care Provider [phone] Encounter Details Date Type Department Care Team (Latest Contact Info) Description 04/06/2023 Travel Social History Tobacco Use Types Packs/Day Years [...] on filedocumented in this encounter Care Teams Forwarder Operator Relationship Specialty Start Date End Date Nancy Alfred APRN [address] [place], [place] [address] PCP - General Family Medicine 03/03/22 documented as of this encounter
--- OUTSIDE RECORDS SUMMARY | 2023-12-04 01:08 | XMS_ITS | Encounter Summary ---
Author Organization [facility] [place] [address] Care Team Providers Care Shovel Mechanic Name Role Phone Nancy Alfred APRN Primary Care Provider [phone] Encounter Details Date Type Department Care Team (Late st Contact Info) Description 04/06/2023 1:30 PM EST Tech [place] [phone] Juliana Wilkinson S/P aortobifemoral bypass surgery Social History Tobacco Use Types Packs/Day Years [...] Diagnosis Comments SHA, LEGS, MULTIPLE LEVELS Routine 04/06/2023 1:26 PM EST S/P aortobifemoral bypass surgery documented in this encounter Results * SHA, legs, multiple levels (04/06/2023 1:26 PM EST) VB Text Report Department: Vascular Surgery Lab Patient: [id number] (EMILIANA FARMER) CPT: 45064 Referring Physician: RADHA EMERY APRN ?? Indications: H/o ABF BPG, ? peripheral perfusion Diabetes mellitus: Pre Findings: Right ?Pressure (mm Hg) ?? SHA ??Waveform ? TBI ?? Brachial Artery ?148 ? Dorsalis Pedis (Ankle) Artery ?139 ? 0.94 ??Biphasic ? Posterior Tibial (Ankle) Artery ??130 ? 0.88 ??Bi-Triphasic ? Great Toe ?101 ? 0.68 ?? Left ? Pressure (mm Hg) ?? SHA ??Waveform ? TBI ?? Brachial Artery ?136 ? Dorsalis Pedis (Ankle) Artery ?135 ? 0.91 ??Biphasic ? Posterior Tibial (Ankle) Artery ??122 ? 0.82 ??Bi-Triphasic ? Great Toe ?92 ?0.62 ?? Interpretation: RIGHT: Mild lower extremity arterial occlusive disease. No significant change compared to previous exam; however, decrease in disease category. LEFT: Mild lower extremity arterial occlusive disease. No significant change compared to previous exam; however, decrease in disease category. Previous ABIs with change from previous value: Date ?RIGHT DP ?? RIGHT PT ?? RT GR TOE ??RT Sec TOE ??0.63 ? 0.57 ? ---- ? ---- ??0.99(+.36) 1.06(+.49) ---- ? ---- ??0.99( .00) 0.98(-.08) ---- ? ---- ??1.00(+.01) 1.03(+.05) ---- ? ---- ??1.04(+.04) 1.05(+.02) 0.69 ? ---- ??1.01(-.03) 1.00(-.05) ---- ? ---- ??1.00(-.01) 0.99(-.01) ---- ? ---- ??1.05(+.05) 0.96(-.03) ---- ? ---- Current ? 0.94(-.11) 0.88(-.08) 0.68 ? ---- Date ?LEFT DP ?LEFT PT ?LT GR TOE LT Sec TOE ??0.62 ? 0.56 ? ---- ? ---- ??0.98(+.36) 1.00(+.44) ---- ? ---- ??1.01(+.03) 0.99(-.01) ---- ? ---- ??0.94(-.07) 0.94(-.05) ---- ? ---- ??0.55(-.39) 0.56(-.38) 0.44 ? ---- ??0.98(+.43) 1.05(+.49) ---- ? ---- ??0.98( .00) 0.98(-.07) ---- ? ---- ??0.96(-.02) 1.01(+.03) ---- ? ---- Current ? 0.91(-.05) 0.82(-.19) 0.62 ? ---- Electronically Signed by: ARIANNA BELTRAN on 2023-04-06 01:45:37 PM VASCUBASE VB Text Report End of Report VASCUBASE 04/06/2023 1:26 PM EST Radha Emery APRN VASCULAR ORDERABLE S VASCUBASE documented in this encounter Visit Diagnoses Diagnosis S/P aortobifemoral bypass surgery Other postprocedural status documented in this encounter Care Teams Shovel Mechanic Relationship Specialty Start Date End Date Nancy Alfred APRN [address] [place] [address] PCP - General Family Medicine 03/03/22 documented as of this encounter
--- OUTSIDE RECORDS SUMMARY | 2023-12-04 01:08 | XMS_ITS | Encounter Summary ---
Author Organization [facility] [place] [address] Care Team Providers Care Bacteriology Professor Name Role Phone Nancy Alfred APRN Primary Care Provider [phone] Reason for Referral * Diagnostic Test (Routine) - Authorized Specialty Diagnoses / Procedures Referred By Contac t Referred To Contact Diagnoses S/P aortobifemoral bypass surgery Aortoiliac occlusive disease Procedures SHA, legs, multiple levels Ayla Davis APRN [facility] [place] [address] [facility] Vascular Lab [address] [address] Referral ID Status Reason Start Date Expiration Date Visits Requested Visits Authorized [id number] Authorized Specialty Service Requested 3 04/08/2024 1 1 Encounter Details Date Type Department Care Team (Latest Contact Info) Description 04/06/2023 2:00 PM EST Office [place] [address] Ayla Davis APRN [facility] [place] [address] S/P aortobifemoral bypass surgery; Aortoiliac occlusive disease Social History Tobacco Use [...] Pulse 59 04/06/2023 1:56 PM EST Temperature - - Respiratory Rate - - Oxygen Saturation - - Inhaled Oxygen Concentration - - Weight 45.4 kg (100 lb) 04/06/2023 1:56 PM EST Height 154.9 cm (5' 1) 04/06/2023 1:56 PM EST Body Mass Index 18.89 04/06/2023 1:56 PM EST documented in this encounter Progress Notes * Ayla Davis, PHOTOGRAPHIC PLATE MAKER - 04/06/2023 2:00 PM EST Vascular Follow-Up Reason for Visit: Emiliana Farmer is a 58 y.o. female presenting for PAD follow up. HPI: 58 y.o. female with PMH: PAD s/p below procedures, HTN, depression, gout. Ms. Farmer presents to the clinic today for PAD follow up s/p below procedures. She describes general exhaustion and deconditioning since her surgery in 2017, as well as nerve pain in both legs (worseon the left) for which her PCP initiated gabapentin, which has helped. Patient denies chest pain, claudication, edema, SOB. Patient denies stroke symptoms: numbness, tingling, weakness of extremities, facial drooping, slurred speech, new vision loss or change in vision. Patient currently smoking 0.50-0.75 PPD. She has been a smoker for about ~31 years. She has a very supportive boyfriend at home who has successfully quit smoking cigarettes and is encouraging her to do the same. Patient endorses daily ASA and statin. Prior Vascular Hx: 03/05/2018: Stent in distal-most abdominal aorta, stent graft in right common iliac artery, stent graft in left common iliac artery 03/31/2019: Aortobifemoral bypass Atherosclerotic RF: DM (N) HTN (Y) CAD (N) CHF (N) HLD (Y) CVA (N) Tobacco (Y) Current smoker Problem List: Patient Active Problem List Diagnosis Code Intermittent claudication I73.9 History of renal stent [id number] Hypertension I10 Aortoiliac occlusive disease I74.09 Drinks beer Z78.9 Depression F32.A Gout M10.9 PAD (peripheral artery disease) I73.9 Medications: Current Outpatient Medications on File Prior to Visit Medication Sig Dispense Refill gabapentin (Neurontin) 300 mg capsule Take 300 mg by mouth 3 times daily. nicotine polacrilex (COMMIT) [address] 2 mg inside cheek as needed for Smoking cessation. atorvastatin (LIPITOR) 40 mg Tablet Take 1 tablet by mouth daily. 90 tablet 3 amLODIPine (NORVASC) 10 mg Tablet Take 1 tablet by mouth daily. 90 tablet 3 hydroCHLOROthiazide (HYDRODIURIL) 12.5 mg Tablet Take 2 tablets by mouth daily. 90 tablet 0 nicotine (NICODERM CQ) 21 mg/24 hr [address] 21 patches onto the skin daily. 0 aspirin 81 mg Tablet, Delayed Release (E.C.) Take 81 mg by mouth daily. acetaminophen (TYLENOL) 325 mg Tablet Take 2 tablets by mouth every 6 hours as needed for Pain. (Patient not taking: Reported on 03/03/2022) 30 tablet 1 No current facility-administered medications on file prior to visit. Review of Systems: Constitutional (weight change, fever) - Denies Neuro (dizziness, seizures, numbness, tingling) - Denies Eyes (vision) - Denies Ears, nose, throat (hearing) - Denies Cardiovascular (CP) - Denies Respiratory (SOB) - Denies GI (abd pain, nausea, emesis, blood in stool) - Denies (hematuria, dysuria, frequency) - Denies Muscoloskeletal (extremity pain, weakness) - Generalized weakness, nerve damage BLE Skin (ulcers, rashes) - Denies Physical Exam: BP 126/63 (BP Location (NBP): Right arm, Patient Position: Sitting, BP Cuff Sizes: Small Adult (20-26 cm)) Pulse 59 Ht 154.9 cm (5' 1) Wt 45.4 kg (100 lb) BMI 18.89 kg/m?? GEN: Alert and appears stated age. Cooperative. In NAD. HEENT: Normocephalic and atraumatic. CV: RRR. S1/S2 present. Pulm: Clear to auscultation bilaterally. Abd: No palpable aortic pulse or abdominal mass. Soft, non-distended, non-tender to palpation. Skin: Color, texture, turgor normal. No rashes or lesions. Neuro: No gross sensory or motor abnormality. Extremities: Bilateral UE and LE warm and pink. No edema. No wounds. Vascular Exam: R L Carotid Bruit No No Radial 2/2 2/2 Femoral 1/2 1/2 Popliteal 1/2 1/2 DP 2/2 2/2 PT 2/2 2/2 Labs: No results found for this or any previous visit (from the past 24 hour(s)). Studies: 04/06/2023, SHA, legs, multiple levels, Findings: Right Pressure (mm Hg SHA Waveform TBI Brachial Artery 148 Dorsalis Pedis (Ankle) Artery 139 0.94 Biphasic Posterior Tibial (Ankle) Artery 130 0.88 Bi-Triphasic Great Toe 101 0.68 Left Pressure (mm Hg) SHA Waveform TBI Brachial Artery 136 Dorsalis Pedis (Ankle) Artery 135 0.91 Biphasic Posterior Tibial (Ankle) Artery 122 0.82 Bi-Triphasic Great Toe 92 0.62 Interpretation: RIGHT: Mild lower extremity arterial occlusive [...] 1.05(+.02) 0.69 ---- 1.01(-.03) 1.00(-.05) ---- ---- 1.00(-.01) 0.99(-.01) ---- ---- 1.05(+.05) 0.96(-.03) ---- ---- Current 0.94(-.11) 0.88(-.08) 0.68 ---- Date LEFT DP LEFT PT LT GR TOE LT Sec TOE 0.62 0.56 ---- ---- 0.98(+.36) 1.00(+.44) ---- ---- 1.01(+.03) 0.99(-.01) ---- ---- 0.94(-.07) 0.94(-.05) ---- ---- 0.55(-.39) 0.56(-.38) 0.44 ---- 0.98(+.43) 1.05(+.49) ---- ---- 0.98( .00) 0.98(-.07) ---- ---- 0.96(-.02) 1.01(+.03) ---- ---- Current 0.91(-.05) 0.82(-.19) 0.62 ---- Assessment/Plan: 58 y.o. female PAD s/p vascular interventions outlined above, HTN, depression, gout. # PAD Patient with stable PAD s/p listed procedures. ABIs with no significant change from previous studies and patient asymptomatic from PAD. Ms. Farmer is currently experiencing difficulty from deconditioning (since initial intervention in 2017) and neuropathy. Neuropathy is being managed by PCP and patient reports good results from current gabapentin therapy. We discussed deconditioning s/p major procedures. We also discussed cigarette smoking at length and I strongly encouraged her to continue to decrease her cigarette use with the goal of abstinence. Patient amenable to the following plan: Recommend patient continue daily statin and ASA 81 mg. Recommend tight control of co-morbidities and continued abstinence from smoking. Follow-up in the clinic in 1 year with ABIs. Instructed to call the clinic with any concerns prior to next appointment. Instructed to call 911 for any s/sx of CLI including unilateral increased pain, decreased sensation or temperature, or tissue loss. Ayla Davis APRN Department of Vascular Surgery documented in this encounter Plan of Treatment Not on file documented as of this encounter Visit Diagnoses Diagnosis S/P aortobifemoral bypass surgery Other postprocedural status Aortoiliac occlusive 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 documented in this encounter Care Teams Bacteriology Professor Relationship Specialty Start Date End Date Nancy Alfred APRN [address] [place] [address] PCP - General Family Medicine 03/03/22 documented as of this encounter
--- OUTSIDE RECORDS SUMMARY | 2023-12-04 01:08 | XMS_ITS | Encounter Summary ---
Author Organization [facility] [place] [address] Care Team Providers Care Beverage Sales Consultant Name Role Phone Beena Wilkes APRN Primary Care Provider [phone] Reason for Referral * Diagnostic Test (Routine) - Closed Specialty Diagnoses / Procedures Referred By Contac t Referred To Contact Diagnoses Aortoiliac occlusive disease Procedures SHA, legs, multiple levels Pete Álvarez MD [facility] [place] [address] [facility] [address] [place] [address] Referral ID Status Reason Start Date Expiration Date V isits Requested Visits Authorized [id number] Closed Test Only 02/11/2021 02/11/2022 1 1 Encounter Details Date Type Department Care Team (Late st Contact Info) Description 02/11/2021 Orders [place] [address] Emmy Green, GUYLINE OPERATOR Aortoiliac occlusive disease Social History Tobacco Use [...] on file documented as of this encounter Results * SHA, legs, multiple levels (03/03/2022 1:34 PM EDT) VB Text Report Department: Vascular Surgery Lab Patient: [id number] (EMILIANA FARMER) CPT: 18515 Referring Physician: PETE ÁLVAREZ ?? Phone: Indications: F/u ABF Diabetes mellitus: [...] Report VASCUBASE 03/03/2022 1:34 PM EDT Pete Álvarez MD VASCULAR ORDERA BLES VASCUBASE documented in this encounter Visit Diagnoses Diagnosis Aortoiliac occlusive 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 documented in this encounter Care Teams Beverage Sales Consultant Relationship Specialty Start Date End Date Beena Wilkes, [place] [address] [place] [address] PCP - General Family Medicine 01/13/19 03/02/22 documented as of this encounter
--- OUTSIDE RECORDS SUMMARY | 2023-12-04 01:08 | XMS_ITS | Encounter Summary ---
Author Organization [facility] [address] Care Team Providers Care Marketing Business Analyst Name Role Phone Beena Wilkes APRN Primary Care Provider [phone] Reason for Visit * Reason Onset Date Comments Letter for School/Work 05/20/2019 Requested a Return to Work Letter Encounter Details Date Type Department Care Team (Late st Contact Info) Description 05/20/2019 Telephone [place] [phone] Salma Romeo RN Letter for School/Work (Requested a Return to Work Letter ) Social History Tobacco Use Types Packs/Day Years [...] encounter Miscellaneous Notes * Telephone Encounter - Salma Romeo RN - 05/20/2019 10:16 AM EST Emiliana called to request a Return to Work Letter to be mailed to her home address. Return to work date06/02/2019. Letter completed, printed and placed in outgoing mail address to her home. documented in this encounter Plan of Treatment Not on file documented as of this encounter Visit Diagnoses Not on filedocumented in this encounter Care Teams Marketing Business Analyst Relationship Specialty Start Date End Date Beena Wilkes, INTAKE COUNSELOR [address] [facility] [place] [address] PCP - General Family Medicine 01/13/19 03/02/22 documented as of this encounter
--- OUTSIDE RECORDS SUMMARY | 2023-12-04 01:08 | XMS_ITS | Encounter Summary ---
Author Organization [facility] [place] [address] Care Team Providers Care Flight Director Name Role Phone Beena Wilkes APRN Primary Care Provider [phone] Encounter Details Date Type Department Care Team (Late st Contact Info) Description 02/11/2021 Orders [place] [address] Emmy Green, PLASMA PROCESSING TECHNICIAN Intermittent claudication; PAD (peripheral artery disease) Social History Tobacco Use Types Packs/Day Years [...] Diagnosis Intermittent claudication Peripheral vascular disease, unspecified PAD (peripheral artery disease) Peripheral vascular disease, unspecified documented in this encounter Care Teams Flight Director Relationship Specialty Start Date End Date Beena Wilkes APRN [address], [place] [id number] PCP - General Family Medicine 01/13/19 03/02/22 documented as of this encounter
--- OUTSIDE RECORDS SUMMARY | 2023-12-04 01:08 | XMS_ITS | Encounter Summary ---
Author Organization [facility] Address [facility] [place] [address] Care Team Providers Care Organisation And Methods Analyst Name Role Phone Beena Wilkes APRN Primary Care Provider [phone] Encounter Details Date Type Department Care Team (Late st Contact Info) Description 10/03/2019 10:00 AM EDT TH Visit (TeleHealth) [place] [id number] Judy Gilbert MD [facility] [place] [address] PAD (peripheral artery disease) Social History Tobacco [...] on file documented as of this encounter Progress Notes * Judy Gilbert MD - 10/03/2019 10:00 AM EDT OUTPATIENT VASCULAR SURGERY FOLLOW-UP- TELEHEALTH Patient verbally consents to this telephone visit and understands that this visit may be billed, similar to a clinic office visit. Reason for Visit: protrusion from abdominal wall History of Present Illness: Emiliana Farmer is a 54 y.o. female Here for a telehealth follow-up. She was last seen by me in April 2019. She has h/o PAD s/p infrarenal aortic stent and kissing iliac stents 02/2018, with L femoral cutdown for failed access with subsequent L iliac stent occlusion. She s ubsequently underwent aortobifemoral bypass on 03/31/19 for lifestyle limiting claudication. She reports she no longer experiences claudication however does have some pain in her left knee. This pain is worse when resting after being on her feet all day and better while walking around. She recently contacted our office with concern that she has noted a protrusiton around the area of her umbilicus. It was recommended that she come in for evaluation, however she lives far away and requested a telehealth visit instead. She reports that approximately 3 weeks ago while stretching overhead she felt a strange sensation at the level of her navel. Since then she has noticed a protrusionjust to the right side of her umbilicus. She denies any pain however reports feeling a deep ache which is similar to a menstrual cramp. When lying down she is able to reduce the bulge. She reports she continues to smoke. Atherosclerotic Risk Factors: (n) DM (y) HTN (n) CAD (n) CHF (y) Hyperlipidemia (n) CVA reports that she quit smoking about 8 months ago. Her smoking use included cigarettes. [...] claudication I73.9 ??? History of renal stent [id number] ??? Hypertension I10 ??? 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 Studies: No flowsheet data found. ?? SHA 05/02/19: ?? Right ?Pressure (mm Hg) ?? SHA ??Waveform ?? Brachial Artery ?135 ? Dorsalis Pedis (Ankle) Artery ?141 ? 1.01 ??Triphasic ?? Posterior Tibial (Ankle) Artery ??139 ? 1.00 ??Triphasic ? Left ? Pressure (mm Hg) ?? SHA ??Waveform ?? Brachial Artery ?139 ? Dorsalis Pedis (Ankle) Artery ?136 ? 0.98 ??Triphasic ?? Posterior Tibial (Ankle) Artery ??146 ? 1.05 ??Triphasic ? Interpretation: ?? RIGHT: No significant lower extremity arterial occlusive disease identifiable at rest. Normal ankle/brachial pressure ratios and ankle Doppler waveforms. No identifiable change when compared to the previous exam done 12/03/2018. ?? LEFT: No significant lower extremity arterial occlusive disease identifiable at rest. Normal ankle/brachial pressure ratios and ankle Doppler waveforms. Significant improvement compared to previous exam done 12/03/2018. ? Assessment and Plan: 54 y.o. female with h/o PAD s/p aortic and kissing iliac stent grafts in 02/2018 with occlusion of the L iliac stent graft, and subsequent aortobifemoral bypass on 03/31/19 doing well from a vascular standpoint. We again discussed the importance of smoking cessation. By her d escription she has a presumed incisional hernia which is reducible. For this I have also stressed the importance of smoking cessation and recommended evaluation by general surgeon. I have offered to refer her to a [facility] surgeon however she would prefer to be seen closer to home. For this reasonI suggested she contact her PCP for a local referral. We will plan for a follow-up with me in 6 months with repeat ABIs. I provided care to the patient today via telephone call. The total time associated with this visit was 20 minutes. documented in this encounter Plan of Treatment Not on file documented as of this encounter Visit Diagnoses Diagnosis PAD (peripheral artery disease) Peripheral vascular disease, unspecified documented in this encounter Care Teams Organisation And Methods Analyst Relationship Specialty Start Date End Date Beena Wilkes, [place]EREE [address] [place] [address] PCP - General Family Medicine 01/13/19 03/02/22 documented as of this encounter
--- OUTSIDE RECORDS SUMMARY | 2023-12-04 01:08 | XMS_ITS | Encounter Summary ---
Author Organization [facility] [address] Care Team Providers Care Residential Instructor Name Role Phone Beena Wilkes APRN Primary Care Provider [phone] Reason for Visit * Reason Onset Date Comments Follow-up 03/24/2020 Tobacco Treatmen t Encounter Details Date Type Department Care Team (Late st Contact Info) Description 03/24/2020 Telephone [place] [address] Buck Watts, RN Follow-up (Tobacco Treatment) Social History Tobacco Use Types Packs/Day Years [...] Telephone Encounter - Buck Watts, RN - 03/24/2020 11:18 AM EST DATE: 03/24/2020 NAME: Emiliana Farmer : 1965 Reason for Call: 12-month follow-up for Tobacco Treatment Pt reports that she has recently committed to another quit attempt. She had been using the patches for a while and once she ran out, she resumed smoking about 5 cpd. She is waiting to receive anotherprescription of patches in the mail soon and feels confident that she will be able to continue quitting efforts. This completes scheduled follow-ups. EMR updated. Buck Watts, MSN, RN-, [facility] Tobacco Mental Tester [facility] Pager #[phone] documented in this encounter Plan of Treatment Not on file documented as of this encounter Visit Diagnoses Not on filedocumented in this encounter Care Teams Residential Instructor Relationship Specialty Start Date End Date Beena Wilkes, MANAGER CREDIT COLLECTIONS [address] [place] [address] PCP - General Family Medicine 01/13/19 03/02/22 documented as of this encounter
--- OUTSIDE RECORDS SUMMARY | 2023-12-04 01:08 | XMS_ITS | Encounter Summary ---
Author Organization [facility] [address] Care Team Providers Care Systems Engineer Name Role Phone Beena Wilkes APRN Primary Care Provider [phone] Encounter Details Date Type Department Care Team (Late st Contact Info) Description 02/11/2021 9:30 AM EDT Tech [place] [address] Vikash Black [place] Aortoiliac occlusive disease Social [...] Procedure Name Priority Date/Time Associated Diagnosis Comments PRG NON-INVASIVE PHYSIOLOGIC STUDY EXTREMITY ART 2 LEVEL Routine 02/11/2021 9:11 AM EDT Aortoiliac occlusive disease documented in this encounter Results * SHA, legs, multiple levels (02/11/2021 9:11 AM EDT) VB Text Report Department: Vascular Surgery Lab Patient: [id number] (EMILIANA FARMER) CPT: 42307 ICD10: I74.09 Referring Physician: PETE GILBERT ?? Phone: Indications: f/u ABF bypass. Diabetes mellitus: no ICD10 Diagnosis Code: I74.09 Findings: Right ?Pressure (mm Hg) ?? SHA ??Waveform ?? Brachial Artery ?153 ? Dorsalis Pedis (Ankle) Artery ?160 ? 1.00 ??Triphasic ?? Posterior Tibial (Ankle) Artery ??159 ? 0.99 ??Triphasic ?? Left ? Pressure (mm Hg) ?? SHA ??Waveform ?? Brachial Artery ?160 ? Dorsalis Pedis (Ankle) Artery ?156 ? 0.98 ??Triphasic ?? Posterior Tibial (Ankle) Artery ??157 ? 0.98 ??Triphasic ?? Interpretation: RIGHT: No significant lower [...] ? ---- ??1.01(-.03) 1.00(-.05) ---- ? ---- Current ? 1.00(-.01) 0.99(-.01) ---- ? ---- Date ?LEFT DP ?LEFT PT ?LT GR TOE LT Sec TOE ??0.62 ? 0.56 ? ---- ? ---- ??0.98(+.36) 1.00(+.44) ---- ? ---- ??1.01(+.03) 0.99(-.01) ---- ? ---- ??0.94(-.07) 0.94(-.05) ---- ? ---- ??0.55(-.39) 0.56(-.38) 0.44 ? ---- ??0.98(+.43) 1.05(+.49) ---- ? ---- Current ? 0.98( .00) 0.98(-.07) ---- ? ---- Electronically Signed by: PETE GILBERT on 2021-02-14 11:19:00 AM [facility] VB Text Report End of Report V[facility] 02/11/2021 9:11 AM EDT Pete Gilbert MD VASCULAR ORDERA BLES [facility] documented in this encounter Visit Diagnoses Diagnosis Aortoiliac occlusive 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 documented in this encounter Care Teams Systems Engineer Relationship Specialty Start Date End Date Beena Wilkes, BITUMEN PLANT OPERATOR [address] [facility] [address] PCP - General Family Medicine 01/13/19 03/02/22 documented as of this encounter
--- OUTSIDE RECORDS SUMMARY | 2023-12-04 01:08 | XMS_ITS | Encounter Summary ---
Author Organization [facility] [place] [address] Care Team Providers Care Instructor Hairspring Name Role Phone Beena Wilkes APRN Primary Care Provider [phone] Reason for Referral * Diagnostic Test (Routine) - Closed Specialty Diagnoses / Procedures Referred By Contac t Referred To Contact Diagnoses Aortoiliac occlusive disease Procedures SHA, legs, multiple levels Pete Álvarez MD [facility] [place] [address] [facility] Vascular Lab [address] [address] Referral ID Status Reason Start Date Expiration Date V isits Requested Visits Authorized [id number] Closed Specialty Service Requested 02/08/2021 02/08/2022 1 1 Encounter Details Date Type Department Care Team (Late st Contact Info) Description 02/08/2021 Orders Only [place] [address] Emmy Green, CONTROLS DESIGNER Aortoiliac occlusive disease Social History Tobacco Use [...] Text Report Department: Vascular Surgery Lab Patient: [id number] (EMILIANA FARMER) CPT: 71952 ICD10: I74.09 Referring Physician: PETE ÁLVAREZ ?? Phone: Indications: f/u ABF bypass. Diabetes [...] ---- ? ---- Electronically Signed by: PETE ÁLVAREZ on 2021-02-14 11:19:00 AM [facility] VB Text Report End of Report [facility] 02/11/2021 9:11 AM EDT Pete Álvarez MD VASCULAR ORDERA BLES [facility] Organization Address City/State/[facility] Co de Phone Number VASCUBASE documented in this encounter Visit Diagnoses Diagnosis Aortoiliac occlusive 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 documented in this encounter Care Teams Instructor Hairspring Relationship Specialty Start Date End Date Beena Wilkes, POWDERED METAL SUPERVISOR [address] [facility] [place] [address] PCP - General Family Medicine 01/13/19 03/02/22 documented as of this encounter
--- OUTSIDE RECORDS SUMMARY | 2023-12-04 01:08 | XMS_ITS | Encounter Summary ---
Author Organization [facility] Address [facility] [place] [address] Care Team Providers Care Client Service Administrator Name Role Phone Nancy Alfred APRN Primary Care Provider [phone] Reason for Referral * Diagnostic Test (Routine) - Closed Specialty Diagnoses / Procedures Referred By Contac t Referred To Contact Diagnoses S/P aortobifemoral bypass surgery Procedures SHA, legs, multiple levels Radha Emery APRN [facility] [place] [address] [facility] Vascular Lab [address] [address] Referral ID Status Reason Start Date Expiration Date V isits Requested Visits Authorized [id number] Closed Specialty Service Requested 03/03/2022 03/03/2023 1 1 Encounter Details Date Type Department Care Team (Latest Contact Info) Description 03/03/2022 2:30 PM EDT Office Visit [place] [address] Radha Emery APRN [facility] [place] [address] S/P aortobifemoral bypass surgery Social History Tobacco [...] Sign Reading Time Taken Comments Blood Pressure 109/60 03/03/2022 2:02 PM EDT Pulse 64 03/03/2022 2:02 PM EDT Temperature - - Respiratory Rate - - Oxygen Saturation - - Inhaled Oxygen Concentration - - Weight 45.4 kg (100 lb) 03/03/2022 2:02 PM EDT r eported Height 157.5 cm (5' 2) 03/03/2022 2:02 PM EDT r eported Body Mass Index 18.29 03/03/2022 2:02 PM EDT documented in this encounter Progress Notes * Radha Emery, PALLETISER OPERATOR - 03/03/2022 2:30 PM EDT OUTPATIENT VASCULAR SURGERY FOLLOW-UP Reason for Visit: f/u SHA's History of Present Illness: Emiliana Farmer is a 57 y.o. female here for follow-up. She was last seen via telehealth on 10/03/19. She has h/o PAD s/p infrarenal aortic stent and kissing iliac stents 02/2018, with L femoral cutdown for failed access with subsequent L iliac stent occlusion. She underwent aortobifemoral bypass on 03/31/19 for lifestyle limiting claudication. She reports she has done wellsince surgery, however she continues to smoke. Denies chest pain, SOB, TIA's claudication Atherosclerotic Risk Factors: (n) DM (y) HTN [...] claudication I73.9 ??? History of renal stent [id number] ??? Hypertension I10 ??? Aortoiliac occlusive disease I74.09 ??? Drinks beer Z78.9 ??? Depression F32.A ??? Gout M10.9 ??? PAD (peripheral artery disease) I73.9 Current Outpatient Medications: ??? atorvastatin (LIPITOR) 40 mg Tablet, Take 1 tablet by mouth daily., Disp: 90 tablet, Rfl: 3 ??? amLODIPine (NORVASC) 10 mg Tablet, Take 1 tablet by mouth daily., Disp: 90 tablet, Rfl: 3 ??? hydroCHLOROthiazide (HYDRODIURIL) 12.5 mg Tablet, Take 2 tablets by mouth daily., Disp: 90 tablet, Rfl: 0 ??? aspirin 81 mg Tablet, Delayed Release (E.C.), Take 81 mg by mouth daily., Disp: , Rfl: ??? nicotine polacrilex (COMMIT) 2 mg Lozenge, Place 2 mg inside cheek as needed for Smoking cessation., Disp: , Rfl: ??? acetaminophen (TYLENOL) 325 mg Tablet, Take 2 tablets by mouth every 6 hours as needed for Pain. (Patient not taking: Reported on 03/03/2022), Disp: 30 tablet, Rfl: 1 ??? nicotine (NICODERM CQ) 21 mg/24 hr Patch 24 hr, Place 21 patches onto the skin daily., Disp: , Rfl: 0 Allergies Allergen Reactions ??? Effexor [Venlafaxine] Pt unsure of reaction was 25 years ago ??? Trazodone Pt unsure of reaction was 25 years ago Physical Exam: BP 109/60 (BP Location (NBP): Left arm, Patient Position: Sitting, BP Cuff Sizes: Small Adult (20-26 cm)) Pulse 64 Ht 157.5 cm (5' 2) Comment: reported Wt 45.4 kg (100 lb) Comment: reported BMI 18.29 kg/m?? General - NAD, appears stated age Neuro - Alert and Oriented, Motor Sensory grossly intact cardiac - RRR, no murmurs Lungs - Clear Abd - Soft, scaphoid, NT, ND, well healed midline and femoral incisions, no evidence of hernia. Musculoskeletal- full ROM upper and lower extremities Psych- alert oriented X3 Extremities - Warm, pink, no edema, B feet warm and pink Vascular Exam: R L Carotid 2/2 bruit (n) 2/2 bruit (n) Radial 2/2 2/2 Femoral 2/2 2/2 Popliteal 2/2 2/2 DP 2/2 2/2 PT 2/2 2/2 SHA's ??Right ?Pressure (mm Hg) ?? SHA ??Waveform ? Brachial Artery ?134 ? Dorsalis Pedis (Ankle) Artery ?142 ? 1.05 ??Biphasic-Rev ?? Posterior Tibial (Ankle) Artery ??130 ? 0.96 ??Biphasic-Rev ? Left ? Pressure (mm Hg) ?? SHA ??Waveform ? Brachial Artery ?135 ? Dorsalis Pedis (Ankle) Artery ?129 ? 0.96 ??Biphasic-Rev ?? Posterior Tibial (Ankle) Artery ??136 ? 1.01 ??Triphasic ? Interpretation: ?? RIGHT: No significant lower extremity arterial occlusive disease identifiable at rest. Normal ankle/brachial pressure ratios and ankle Doppler waveforms. No significant change compared to previous exam. ?? LEFT: No significant lower extremity arterial occlusive disease identifiable at rest. Normal ankle/brachial pressure ratios and ankle Doppler waveforms. No significant change compared to previous exam. ? Assessment and Plan: 57 y.o. female with h/o PAD s/p aortic and kissing iliac stent grafts in 02/2018 with occlusion of the L iliac stent graft, and subsequent aortobifemoral bypass on 03/31/19 doing well. She is working with her PCP about quitting smoking and is going ot choose a quit date. Marshall follow- up with me in 1 year with repeat ABIs. documented in this encounter Plan of Treatment Not on file documented as of this encounter Results * SHA, legs, multiple levels (04/06/2023 1:26 PM EST) VB Text Report Department: Vascular Surgery Lab Patient: [id number] (EMILIANA FARMER) CPT: 39777 Referring Physician: RADHA EMERY APRN ?? Indications: [...] status documented in this encounter Care Teams Client Service Administrator Relationship Specialty Start Date End Date Nancy Alfred APRN [facility] [place] [address] PCP - General Family Medicine 03/03/22 documented as of this encounter
--- OUTSIDE RECORDS SUMMARY | 2023-12-04 01:09 | XMS_ITS | Encounter Summary ---
Author Organization [facility] Address [facility] [place] [address] Care Team Providers Care Cotton Factor Name Role Phone ChungBeena SHEREE Primary Care Provider [phone] Reason for Visit * Diagnostic Test (Routine) - Closed Specialty Diagnoses / Procedures Referred By Contac t Referred To Contact Radiology Diagnoses PAD (peripheral artery disease) Procedures NM Pharmacologic Stress Myocardial Perfusion Rashawn Dawn MD [facility] [place] [address] [place] [address] Referral ID Status Reason Start Date Expiration Date V isits Requested Visits Authorized [id number] Closed Specialty Service Requested 01/28/2019 01/28/2020 1 1 Encounter Details Date Type Department Care Team (Latest Contact Info) Description 03/06/2019 7:08 AM EDT Hospital Encounter [place] [address] Rashawn Dawn MD [facility] [address] Discharge Disposition: Home Social History Tobacco Use Types Packs/Day Years [...] on file documented as of this encounter Medications at Time of Discharge Medication Sig Dispensed Refills Start Date End Date atorvastatin (LIPITOR) 40 mg Tablet Take 1 tablet by mouth daily. 90 tablet 3 01/28/2019 amLODIPine (NORVASC) 10 mg Tablet Take 1 tablet by mouth daily. 90 tablet 3 01/28/2019 hydroCHLOROthiazide (HYDRODIURIL) 12.5 mg Tablet Take 2 tablets by mouth daily. 90 tablet 03/06/2018 nicotine (NICODERM CQ) 21 mg/[address] 21 patches onto the skin daily. 0 01/16/2018 aspirin 81 mg Tablet, Delayed Release (E.C.) Take 81 mg by mouth daily. acetaminophen (TYLENOL) 325 mg Tablet Take 2 tablets by mouth every 6 hours as needed for Pain. 30 tablet 1 04/05/2019 polyethylene glycol (MIRALAX) 17 gram Powder in Packet Take 17 g by mouth daily. 14 each 04/06/2019 02/11/2021 senna-docusate (PERICOLACE) 8.6-50 mg Tablet Take 1 tablet by mouth 2 times daily. 60 tablet 11 04/05/2019 02/11/2021 oxyCODONE (ROXICODONE) 5 mg Tablet Take 1 tablet by mouth every 4 hours as needed for Pain. 20 tablet 04/05/2019 02/11/2021 documented as of this encounter Plan of Treatment Not on file documented as of this encounter Procedures Procedure Name Priority Date/Time Associated Diagnosis Comments NM PHARMACOLOGIC STRESS AND REST MYOCARDIAL PERFUSION Routine 03/06/2019 9:16 AM EDT PAD (peripheral artery disease) documented in this encounter Visit Diagnoses Not on filedocumented in this encounter Administered Medications Inactive Administered Medications - up to 3 most recent administrations Medication Order MAR Action Action Date Dose Rate Site regadenoson (LEXISCAN) injection 0.4 mg 0.4 mg, Intravenous, ONCE, 1 dose, On Wilda 03/06/19 at 0945, Routine Given 03/06/2019 9:10 AM EDT 0.4 mg technetium (Tc-99m) sestamibi injection 23.8 mCi 23.8 mCi, Intravenous, ONCE PRN, 1 dose, Starting on Wilda 03/06/19 at 0910, Until Wilda 03/06/19 at 0910, Per Protocol, Routine Given 03/06/2019 9:10 AM EDT 23.8 mCi documented in this encounter Care Teams Cotton Factor Relationship Specialty Start Date End Date Beena Wilkes, CORPORATE ACCOUNTING MANAGER [address] [place] [address] PCP - General Family Medicine 01/13/19 03/02/22 documented as of this encounter
--- OUTSIDE RECORDS SUMMARY | 2023-12-04 01:09 | XMS_ITS | Encounter Summary ---
[facility] Address [facility] [place] [address] Care Team Providers Care Mail Reader Name Role Phone Beena Wilkes APRN Primary Care Provider [phone] Reason for Visit * Auth/Cert Specialty Diagnoses / Procedures Referred By Contac t Referred To Contact Diagnoses PAD (peripheral artery disease) PAD n/a Procedures PRO BYPASS GRAFT OTHR, AORTOBIFEMORAL @BYPASS GRAFT, AORTOBIFEMORAL W\ SYNTHETIC CONDUIT (WRVU 32.98) Referral ID Status Reason Start Date Expiration Date Visits Re quested Visits Authorized [id number] 1 1 Encounter Details Date Type Department Care Team (Late st Contact Info) Description 03/31/2019 12:11 PM EST Anesthesia Event [place] [address] Gris Loco MD [facility] [place] [address] Angel Betts MD [facility] [place] [place] [address] Anesthesia Record Procedure Summary Procedure Name Responsible Anesthesiologist Anesthesia Start Time Anesthesia Stop Time @BYPASS GRAFT, AORTOBIFEMORAL W\ SYNTHETIC CONDUIT (WRVU 32.98) Gris Loco MD 03/31/19 1211 03/31/19 1822 Events Date Time Event Comment 03/31/2019 1057 1211 AN Verify 1211 Start 1211 An Start Data 1219 An Induction 1221 An Intubation 1249 Anesthesia Ready 1324 Procedure Start 1456 Vascular Clamp ON 1637 Quick Note ACT 195, surgeo n aware, second leg near opening 1758 Extubation/LMA Out 181 an stop data 1822 Recovery or ICU Handoff Gunjan ent care was transferred to the destination unit staff after review of the patient's medical history, current anesthetic/surgical status and plan, according to the Provider Handoff Checklist. 182 Stop Meds Name Total Propofol 160 mg Rocuronium 200 mg Heparin 5,000 Units Protamine 30 mg Ondansetron 4 mg Neostigmine 2 mg Glycopyrrolate 0.4 mg Lidocaine 2% 18 mL ceFAZolin (ANCEF) 2g in dextrose 5% 100 mL 2 g Esmolol 20 mg HYDROmorphone (Dilaudid) 10 mcg/mL, BUpivacaine (Marcaine) 0.1% (0.1 mg/mL) (1/10%) in sodium chloride 0.9% 250 mL epidural 8.6 mL HYDROmorphone 0.4 mg Sugammadex 200 mg lactated ringers infusion 3,000 mL * Agents Name O2 Air N2O Sevoflurane (et) Isoflurane (et) * Blood No blood administrations on file. Lines, Drains, and Airways Type Details Placement Removal Incision 03/05/18; 0827; groi n (puncture site); LDA not present upon assessment; 04/05/19; 0721 03/05/18 0827 by Vangie Rodrigez RN 04/05/19 0721 by Mackenzie White RN Incision 03/05/18; 0902; groi n; LDA not present upon assessment; 04/05/19; 0721 03/05/18 0902 by Vangie Rodrigez RN 04/05/19 0721 by Mackenzie White RN (RETIRED) Peripheral IV Line - Single Lumen 03/06/19; 0735; median cubital vein (antecubital fossa), right; idcr-bwg-nfjwbk catheter system; 22 gauge; site symptomatic; 04/04/19; 194403/06/19 0735 by Vikash Casper 04/04/191944 by Roxie Barroso RN (RETIRED) Peripheral IV Line - Single Lumen 03/31/19; 1121; basilic vein (medial side of arm), left; gdgv-fij-wdynmx catheter system; 20 gauge; Samia Kay RN; intradermal injection, tolerated well; 0; 04/05/19; 1420 03/31/19 1121 by Shivani Michel RN 04/05/19 1420 by Ade Mak RN Epidural 03/31/19; 1144; thoracic; loss 5cm, tip T8/9, 14cm skin; Dr. Avalos and Dr. Pompa; analgesia, continuous infusion; no longer indicated; No complications; 04/04/19; 1559 03/31/19 1144 by Shahana Booker RN 04/04/19 1559 by Shahana Booker RN ETT Mask Ventilation: Ea sy (1); ETT Type: Cuffed, Oral; ETT Size: 7 mm; Mac Blade: 3; Notes: Asleep, Pre-O2, Stylette; Attempts: 1; Laryngoscopy Grade: 1; ETT Placement Verified By: Auscultation, Capnometry, Visual; Secured at Teeth: 21 cm; Inserted by: sabrina; Removal Date: 03/31/19; Removal Time: 175703/31/19 1226 by Rosita Ayala MD 03/31/19 1758 by Rosita Ayala MD Urethral Catheter 03/31/19; 1245; Surg leticia longer than 2 hours, Abdominal surgery, Physician order; Physician order; indwelling double lumen catheter; latex, silicone coated; 14; inserted at this facility; 1; 5; 10; none (Inserted in OR under general anesthesia); drainage bag to dependent drainage; urethral catheter removed, tubing intact, per protocol/policy; Inserted by Tessa Hall RN; 04/02/19; 0652 03/31/19 1245 by Tessa Hall RN 04/02/19 0652 by Lisa Chacko LNA Arterial Line 03/31/19; 1257; radi al artery, left; 20 gauge; measom; Sterile Prep, Sterile Gloves; other (see comments) (not present on admission); 04/01/19 03/31/19 1257 by Rosita Ayala MD 04/01/19 0000 by Jenna Licea, SADAF (RETIRED) Peripheral IV Line - Single Lumen 03/31/19; 1257; cephalic vein (lateral side of arm), left; mfeo-gfv-sjvilt catheter system; 18 gauge, HINA; measom; 0; 03/31/19; 202903/31/19 1257 by Rosita Ayala MD 03/31/192029 by Rachel Lauren RN (RETIRED) Peripheral IV Line - Single Lumen 03/31/19; 1257; median vein (underside of arm), right; xvki-qpe-fnlwsb catheter system; 14 gauge; measom; 0; no longer indicated, site symptomatic, catheter/device intact; 04/04/19; 213603/31/19 1257 by Rosita Ayala MD 04/04/192136 by Eri Benjamin RN Incision 03/31/19; 1325; groi n; 01/16/22 (LDA cleanup utility RA#[id number]); 1715 (LDA cleanup utility RA#[id number]) 03/31/19 1325 by Leann Cabrera RN 01/16/[address] Incision 03/31/19; 1330; groi n; 01/16/22 (LDA cleanup utility RA#[id number]); 1715 (LDA cleanup utility RA#[id number]) 03/31/19 1330 by Leann Cabrera RN 01/16/[address] Incision 03/31/19; 1356; abdo men; vertical; 01/16/22 (LDA cleanup utility RA#[id number]); 1715 (LDA cleanup utility RA#[id number]) 03/31/19 1356 by Leann Cabrera RN 01/16/[address] documented in this encounter Social History Tobacco Use Types Packs/Day Years [...] on file documented as of this encounter OR Notes * Anesthesia Postprocedure Evaluation - Gris Loco MD - 04/01/2019 8:46 AM EST Department of Anesthesiology Post-procedure Note Patient: Emiliana Farmer Procedure Summary Date: 03/31/19 Room / Location: [address] MAIN OR Anesthesia Start: 121 Anesthesia Stop: 1821 Procedure: @BYPASS GRAFT, AORTOBIFEMORAL W\ SYNTHETIC CONDUIT (WRVU 32.98) (N/A ) Diagnosis: (PAD) Surgeon: Judy Gilbert MD Responsible Provider: Gris Loco MD Anesthesia Type: general ASA Status: 3 All Anesthesia Providers: Anesthesiologist: Gris Loco MD [employer] Agent: Rosita Ayala MD Vitals Value Taken Time BP 127/68 03/31/2019 11:00 PM Temp 37.2 ??C (99 ??F) 03/31/2019 10:00 PM Pulse 83 03/31/2019 11:01 PM Resp 14 03/31/2019 11:01 PM SpO2 96 % 03/31/2019 11:01 PM Pain Level 5 03/31/2019 10:00 PM Vitals shown include unvalidated device data. Patient Location: Floor Level of Consciousness: Awake and Alert Pain Management: Satisfactory Analgesia PONV: None Cardiovascular Status: At Baseline Respiratory Status: At Baseline Postoperative Fluid Status: Intravascular EUvolemia Possible Anesthetic Complications: NONE apparent at time of evaluation Final Primary Anesthesia Type: General (The anesthetic type performed was the same as planned.) Comments: Seen this am on floor; pain adequately controlled, has not yet had sign of return of bowel function nor been out of bed thus far- encouraged early mobilization, reinforced need for abstinence to smoking. * Anesthesia Procedure Notes - Kizzy Pompa MD - 03/31/2019 12:21 PM EST Associated Order(s): Neuraxial Block Procedure: Neuraxial Block Post-op Pain Control Post-op pain management at the request of surgeon. Type: Epidural The patient was greeted. The sedation plan, its benefits, risks and alternatives were discussed with the patient. The patient has consented to the procedure. The medical history and chart were reviewed. The timeout was performed. Start time: 03/31/2019 11:28 AM End time: 03/31/2019 11:59 AM Patient Location: Operating Room (OR 19) Baseline Information ([id number]-[id number] entry for database use): Best phone number to contact patient: [phone] Addiction History: No Chronic Pain: No On opioids (any route) for 4 weeks or more: No Anxiety: No Depression: Yes Mood Disorder: Yes COPD: No CAD: No HTN: Yes DM: No Baseline Pain Score: 0 Patient Prep Position: Prone Prep: Hand Hygiene, Hat, Mask, Sterile Gloves, Chlorhexidine and Patient Draped Injection technique: continuous Skin Anesthetic Lidocaine 1% 5 ml Procedure Technique Level of needle insertion: T11-12 Needle approach: midline Needle Type: Tuohy Gauge: 17 Needle length: 3.5 in Needle insertion depth when MARIA ISABEL achieved: 4.5 cm Technique for Loss of Resistance: MARIA ISABEL saline A 19 guage epidural catheter introduced into the epidural space. Catheter at skin depth: 12 cm Dressing/Secured with: Chlorhexidine Tegaderm Number of attempts: 2 Events/Notes Imaging: epidurogram obtained and fluoroscopy guided Level of Epidural Tip via Fluoroscopy: T8-9 Iohexol 240 mgI/mL, 4 mL Events: Ms. Farmer tolerated the procedure well and remained hemodynamically stable throughout epidural placement. Initial attempt with MARIA ISABEL without event and catheter threading easily to T8-9; evidence of subdural dye spread; catheter replaced with another uneventful MARIA ISABEL and threading to T8-T9 - bilateral epidural dye spread noted. Resident/VISITOR SERVICES REPRESENTATIVE: Di Avalos MD Second Resident/VISITOR SERVICES REPRESENTATIVE: Fellow: Attending Physician: Kizzy Pompa MD ~~~~~~~~~~~~~~~~~~~~~~~~~~~~~~~~~~~~~~~~~~~~~~~~~~~~~~~~~~~~ * Anesthesia Preprocedure Evaluation - Gris Loco MD - 03/07/2019 9:52 AM EDT Pre-Anesthesia Evaluation for: Emiliana Farmer a 54 y.o. female. Procedure(s): @BYPASS GRAFT, AORTOBIFEMORAL W\ SYNTHETIC CONDUIT (WRVU 32.98) Patient Active Problem List Diagnosis ??? Drinks beer As of Jan 2019, patient reports 5 beers per night with plans to taper off before vascular surgery in February. ??? Depression ??? Gout ??? Aortoiliac occlusive disease ??? Hypertension ??? Intermittent claudication ??? History of renal stent Past Medical History: Diagnosis Date ??? Claudication ??? High blood pressure ??? Hypertension 01/08/2018 Past Surgical History: Procedure Laterality Date ??? CORONARY ANGIOPLASTY WITH STENT PLACEMENT march 05 2018 ??? PRO PLACE INTRAVASCULAR STENT OPEN/PERCUTAN 1ST ARTERY N/A 03/05/2018 TRANSCATH PLACEMENT INTRAVASCULAR STENT, OPN/PERQ, INITIAL ARTERY, S&I (WRVU 9) performed by Yves Vegas MD at [facility] MAIN OR ? ? PRO REVSC OPEN/PERCUTANEOUS ILIAC ART W STNT & ANGIOP IPSI VSL Bilateral 03/05/2018 REVSC OPN\PRQ ILIAC ART W\STNT & ANGIOP EA IPSILATERAL VSL-ALEX (WRVU 4.25) performed by Yves Vegas MD at [facility] MAIN OR ? ? PRO REVSC OPEN/PERCUTANEOUS ILIAC ART W STNT PLMT&ANGIO PRECIOUS VSL UNILAT Bilateral 03/05/2018 REVSC OPN\PRQ ILIAC ART W\STNT PLMT & ANGIOP SAME VSL BILAT (WRVU 10) performed by Yves Vegas MD at [facility] MAIN OR Social History Tobacco Use ??? Smoking status: Former Smoker Packs/day: 0.25 Years: 0.00 Pack years: 0.00 Types: Cigarettes Last attempt to quit: 2019 Years since quittin.1 ??? Smokeless tobacco: Never Used Substance Use Topics ??? Alcohol use: Yes Alcohol/week: 35.0 standard drinks Types: 35 Cans of beer per week Comment: per pt, was asked to stop between now and surgery 03/07 Social History Substance and Sexual Activity Drug Use Yes ??? Frequency: 3.0 times per week ??? Types: Marijuana Allergies Allergen Reactions ??? Effexor [Venlafaxine] Pt unsure of reaction was 25 years ago ??? Trazodone Pt unsure of reaction was 25 years ago Medications: MAR and/or home medications have been reviewed. Physical Exam: There were no vitals filed for this visit. There is no height or weight on file to calculate BMI. Airway Assessment: Mallampati: II TM distance: >3 FB Neck ROM: full Cardiovascular Assessment: Pulmonary Assessment: Dental Assessment: Misc Assessment: Anesthesia Plan: ASA 3 general, with a(n) intravenous induction This is a preliminary note. 54 y.o. female with hx of symptomatic PAD s/p infrarenal aortic and bilateral iliac stents in 2018 now complicated by occlusion of left iliac stent. Currently scheduled for aortobifemoral bypass grafting with Dr. Gilbert. Hx notable for HTN, HLD, tobacco use (active?) and heavy ETOH use (>5 beers daily), and depression. Anesthetic History: easy MV, grade 1 w/ Mac 3, no reported complications Allergies reviewed Labs reviewed Exercise tolerance: Greater than 4 METS EKG: NSR, non-specific intraventricular conduction block noted Echo/stress: 03/08, EF 65%, no ischemia or scar noted NPO Status: --- Anesthetic Plan: GA w/ ETT Epidural PIV access x2 Arterial line Rosita Ayala MD 03/28/2019 Staff addendum ([facility]): Patient seen and examined on DOS. As above, 45kg (BMI 18) current and residential smoker with etoh abuse (5 beers daily, last drink 2 days ago) presents s/p bilateral iliac and distal aortic stent for open Aobifemoral bypass. Discussed risks/benefits GAETT, epidural for postop pain given increased risk pulmonary complications, arterial line, possible central line access. Region - Major Vascular Informed Consent: Anesthetic plan and risks discussed with patient. Plan discussed with resident. [facility]ITA [facility] PAT Clinic Note: Date and Time of Entry: 03/07/2019 9:52 AM Entered By: Shameka Almanza APRN Reason for Evaluation: Decision Support/Risk Assessment and Review ECG abnormality Hx of Anesthesia Problem: None noted on chart review. PAT Visit Type: Workup Review Only (NO interview) Additional/Outside Records Requested? Did not request medical information from outside organization. Findings, Assessment and Plan: Ms. Farmer is a 54 y.o. year old female whose pertinent medical records were reviewed prior to aortofemoral bypass with Dr. Judy Gilbert. Noted major medical issues include: HTN (?amlodipine); PVD; LBBB (2017); heavy alcohol intake (~5 beers); former smoker (quit Dec 2018). Pre-op screening EKG 01/28/2019: Normal sinus rhythm Non-specific intra-ventricular conduction block Cannot rule out Septal infarct (cited on or before 28-JAN-2019) T wave abnormality, consider inferior ischemia Abnormal ECG When compared with ECG of 05-MAR-2018 07:04, T wave inversion now evident in Inferior leads Confirmed by MD JONAH, ANITHA ([id number]) on 01/28/2019 12:31:[address] Dawn's evaluation 01/28/2019: <4 METS so stress test ordered Statin increased Advised pt to decrease alcohol intake NM pharmacologic stress test 03/06/2019: EF 65%, no ischemia or scar. Anesthesia record 03/05/2018: Gr 1 view with Mac 3, 7 mm, #1 attempt, EZ MV. Shameka Almanza, PARCEL POST CLERK Pre-Admission Testing [phone] documented in this encounter Plan of Treatment Not on file documented as of this encounter Procedures Procedure Name Priority Date/Time Associated Diagnosis Comments ANE NEURAXIAL APS USE Routine 03/31/2019 12:21 PM EST documented in this encounter Results * Neuraxial Block (03/31/2019 12:21 PM EST) Narrative Kizzy Pompa MD - 03/31/2019 12:21 PM EST Kizzy Pompa MD ? 03/31/2019 12:25 PM Procedure: ?? Neuraxial Block Post-op Pain Control Post-op pain management at the request of surgeon. Type: Epidural The patient was greeted. The sedation plan, its benefits, risks and alternatives were discussed with the patient. ??The patient has consented to the procedure. ??The medical history and chart were reviewed. ??The timeout was performed. Start time: 03/31/2019 11:28 AM End time: 03/31/2019 11:59 AM Patient Location: Operating Room (OR 19) Baseline Information (KTI-swaw-ctpcvxnw entry for database use): Best phone number to contact patient: ??[phone] Addiction History: ??No Chronic Pain: ??No On opioids (any route) for 4 weeks or more: ??No Anxiety: ??No Depression: ??Yes Mood Disorder: ??Yes COPD: ??No CAD: ??No HTN: ??Yes DM: ??No Baseline Pain Score: ??0 Patient Prep Position: Prone Prep: Hand Hygiene, Hat, Mask, Sterile Gloves, Chlorhexidine and Patient Draped Injection technique: continuous Skin Anesthetic Lidocaine 1% ??5 ml Procedure Technique Level of needle insertion: T11-12 Needle approach: midline Needle Type: Tuohy Gauge: 17 Needle length: 3.5 in Needle insertion depth when MARIA ISABEL achieved: 4.5 cm Technique for Loss of Resistance: MARIA ISABEL saline A 19 guage epidural catheter introduced into the epidural space. Catheter at skin depth: 12 cm Dressing/Secured with: Chlorhexidine Tegaderm Number of attempts: 2 Events/Notes Imaging: ??epidurogram obtained and fluoroscopy guided Level of Epidural Tip via Fluoroscopy: T8-9 Iohexol 240 mgI/mL, 4 mL Events: ??Ms. Farmer tolerated the procedure well and remained hemodynamically stable throughout epidural placement. ?? Initial attempt with MARIA ISABEL without event and catheter threading easily to T8-9; evidence of subdural dye spread; catheter replaced with another uneventful MARIA ISABEL and threading to T8-T9 - bilateral epidural dye spread noted. ?? Resident/VISITOR SERVICES REPRESENTATIVE: ?Di Avalos MD Second Resident/VISITOR SERVICES REPRESENTATIVE: Fellow: ? Attending Physician: ? Kizzy Pompa MD ~~~~~~~~~~~~~~~~~~~~~~~~~~~~~~~~~~~~~~~~~~~~~~~~~~~~~~~~~~~~ Gris Loco MD [employer]OMOTIVE TE[employer] documented in this encounter Visit Diagnoses Not on filedocumented in this encounter Administered Medications Inactive Administered Medications - up to 3 most recent administrations Medication Order MAR Action Action Date Dose Rate Site ceFAZolin (ANCEF) 2g in dextrose 5% 100 mL 2 g, Intravenous, ONCE, 1 dose, On Sun03/31/19 at 1115, Administer over 30 Minutes, Redose every 3 hours if CrCl is greater than 20. Redose every 8 hours if CrCl is less than 20., Day of Surgery (Day of Procedure), Indication for (Active or Suspected): Prophylaxis Given 03/31/2019 12:49 PM EST 2 g esmolol (BREVIBLOC) injection PRN, Starting on Sun03/31/19 at 1223, Until Sun03/31/19 at 1822, Anesthesia Intra-op, Routine Given 03/31/2019 12:23 PM EST 20 mg glycopyrrolate (ROBINUL) multi-dose injection PRN, Starting on Sun03/31/19 at 1723, Until Sun03/31/19 at 1822, Anesthesia Intra-op, Routine Given 03/31/2019 5:23 PM EST 0.4 mg heparin (porcine) injection PRN, Starting on Sun03/31/19 at 1448, Until Sun03/31/19 at 1822, Anesthesia Intra-op, Routine Given 03/31/2019 2:48 PM EST 5,000 Units HYDROmorphone (Dilaudid) 10 mcg/mL, BUpivacaine (Marcaine) 0.1% (0.1 mg/mL) (1/10%) in sodium chloride 0.9% 250 mL epidural Epidural, PCEA Dose: 3 mL, PCEA Frequency: Every 20 minutes New Bag 03/31/2019 4:56 PM EST 6 mL/hr 6 mL/hr HYDROmorphone (DILAUDID) injection PRN, Starting on Sun03/31/19 at 1736, Until Sun03/31/19 at 1822, Anesthesia Intra-op, Routine Given 03/31/2019 5:36 PM EST 0.4 mg lactated ringers infusion 1,000 mL, at 100 mL/hr, Intravenous, CONTINUOUS, Starting on Sun03/31/19 at 1115, Until Sun03/31/19 at 1911, Day of Surgery (Day of Procedure) New Bag 03/31/2019 12:11 PM EST lidocaine (PF) (XYLOCAINE) 20 mg/mL (2 %) injection PRN, Starting on Sun03/31/19 at 1250, Until Sun03/31/19 at 1822, Anesthesia Intra-op, Routine Given 03/31/2019 4:47 PM EST 3 mLs Given 03/31/2019 4:43 PM EST 3 mLs Given 03/31/2019 2:03 PM EST 3 mLs neostigmine (BLOXIVERZ) injection PRN, Starting on Sun03/31/19 at 1723, Until Sun03/31/19 at 1822, Anesthesia Intra-op, Routine Given 03/31/2019 5:23 PM EST 2 mg ondansetron (ZOFRAN) injection PRN, Starting on Sun03/31/19 at 1705, Until Sun03/31/19 at 1822, Anesthesia Intra-op, Routine Given 03/31/2019 5:05 PM EST 4 mg propofol (DIPRIVAN) 10 mg/mL bolus injection (Anesthesia) PRN, Starting on Sun03/31/19 at 1219, Until Sun03/31/19 at 1822, Anesthesia Intra-op Given 03/31/2019 5:45 PM EST 20 mg Given 03/31/2019 5:33 PM EST 20 mg Given 03/31/2019 12:19 PM EST 120 mg protamine injection PRN, Starting on Sun03/31/19 at 1648, Until Sun03/31/19 at 1822, Anesthesia Intra-op, Routine Given 03/31/2019 4:48 PM EST 30 mg rocuronium (ZEMURON) multi-dose injection PRN, Starting on Sun03/31/19 at 1219, Until Sun03/31/19 at 1822, Anesthesia Intra-op, Routine Given 03/31/2019 3:09 PM EST 50 mg Given 03/31/2019 2:17 PM EST 50 mg Given 03/31/2019 1:53 PM EST 50 mg sugammadex (BRIDION) 100 mg/mL injection PRN, Starting on Sun03/31/19 at 1754, Until Sun03/31/19 at 1822, Anesthesia Intra-op, Routine Given 03/31/2019 5:54 PM EST 200 mg documented in this encounter Care Teams Mail Reader Relationship Specialty Start Date End Date Beena Wilkes, PARCEL POST CLERK [address] [place] [address] PCP - General Family Medicine 01/13/19 03/02/22 documented as of this encounter
--- OUTSIDE RECORDS SUMMARY | 2023-12-04 01:09 | XMS_ITS | Encounter Summary ---
Author Organization [facility] Address [facility] [place] [address] Care Team Providers Care Grey Stock Recorder Name Role Phone KyleBeena cline SHEREE Primary Care Provider [phone] Reason for Referral * Diagnostic Test (Routine) - Closed Specialty Diagnoses / Procedures Referred By Contac t Referred To Contact Radiology Diagnoses PAD (peripheral artery disease) Procedures NM Pharmacologic Stress Myocardial Perfusion Rashawn Dawn MD [facility] [place] [address] [place] [address] Referral ID Status Reason Start Date Expiration Date V isits Requested Visits Authorized [id number] Closed Specialty Service Requested 01/28/2019 01/28/2020 1 1 Reason for Visit * Diagnostic Test (Routine) - Closed Specialty Diagnoses / Procedures Referred By Contac t Referred To Contact Radiology Diagnoses PAD (peripheral artery disease) Procedures NM Pharmacologic Stress Myocardial Perfusion Rashawn Dawn MD [facility] [place] [address] [place] [address] Referral ID Status Reason Start Date Expiration Date V isits Requested Visits Authorized [id number] Closed Specialty Service Requested 01/28/2019 01/28/2020 1 1 Encounter Details Date Type Department Care Team (Latest Contact Info) Description 03/06/2019 7:07 AM EDT Hospital En[place] [id number] Rashawn Dawn MD [facility] [address] PAD (peripheral artery disease) Discharge Disposition: Home Social History Tobacco Use [...] (peripheral artery disease) documented in this encounter Results * NM Pharmacologic Stress Myocardial Perfusion (03/06/2019 9:16 AM EDT) Anatomical Region Laterality Modality Nuclear Medicine Impressions 03/06/2019 1:54 PM EDT No ischemia or scar. ??Left ventricular function is normal. Thank you for letting us participate in the care of this patient. For questions regarding this report, please contact the number below. ? Narrative 03/06/2019 1:54 PM EDT EXAMINATION: NM PHARMACOLOGIC STRESS MYOCARDIAL PERFUSION, NM PHARMACOLOGIC STRESS CT COMPONENT CLINICAL HISTORY: 54 yo F with severe PAD, needs aorto-bifem, pre-op risk stratification TECHNIQUE: During rest, 7.7 mCi of technetium-99m sestamibi was administered intravenously. Approximately 20 minutes later, SPECT images of the heart were obtained with reconstruction in the short, vertical long and horizontal long axis. The patient then received regadenoson intravenously at a dose of 0.4 mg. 20 seconds later, 23.8 mCi of technetium-99m sestamibi was administered intravenously. Images of the heart were then again obtained with SPECT reconstruction. A low-dose CT scan was acquired for the purpose of attenuation correction COMPARISON: None FINDINGS: No fixed or reversible perfusion defects are present. Functional analysis: Myocardial function: There is normal wall thickening and wall motion. Left ventricular ejection fraction: 65 % (normal greater than than 50%). INCIDENTAL CT FINDINGS: Atherosclerotic aortic calcifications. Procedure Note Macario Sheldon MD - 03/06/2019 EXAMINATION: NM PHARMACOLOGIC STRESS MYOCARDIAL PERFUSION, NMPHARMACOLOGIC STRESS CT COMPONENT CLINICAL HISTORY: 54 yo F with severe PAD, needs aorto-bifem, pre-oprisk stratification TECHNIQUE: During rest, 7.7 mCi of technetium-99m sestamibi wasadministered intravenously. Approximately 20 minutes later, SPECT images of the heartwere obtained with reconstruction in the short, vertical long and horizontallong axis. The patient then received regadenoson intravenously at a dose of 0.4 mg.20 seconds later, 23.8 mCi of technetium-99m sestamibi was administered intravenously. Images of the heart were then again obtained with SPECT reconstruction. A low-dose CT scan was acquired for the purpose of attenuationcorrection COMPARISON: None FINDINGS: No fixed or reversible perfusion defects are present. Functional analysis: Myocardial function: There is normal wall thickening and wall motion. Left ventricular ejection fraction: 65 % (normal greater than than 50%). INCIDENTAL CT FINDINGS: Atherosclerotic aortic calcifications. IMPRESSION No ischemia or scar. Left ventricular function is normal. Thank you for letting us participate in the care of this patient. Forquestions regarding this report, please contact the number below. Rashawn Dawn MD [facility] [place] ORDERABLES documented in this encounter Visit Diagnoses Diagnosis PAD (peripheral artery disease) Peripheral vascular disease, unspecified documented in this encounter Administered Medications Inactive Administered Medications - up to 3 most recent administrations Medication Order MAR Action Action Date Dose Rate Site technetium (Tc-99m) sestamibi injection 7.7 mCi 7.7 mCi, Intravenous, ONCE PRN, 1 dose, Starting on Wilda 03/06/19 at 0730, Until Wilda 03/06/19 at 0741, Per Protocol, Routine Given 03/06/2019 7:41 AM EDT 7.7 mCi Right Arm documented in this encounter Care Teams Grey Stock Recorder Relationship Specialty Start Date End Date Beena Wilkes, [employer] [address] [place] [address] PCP - General Family Medicine 01/13/19 03/02/22 documented as of this encounter
--- OUTSIDE RECORDS SUMMARY | 2023-12-04 01:09 | XMS_ITS | Encounter Summary ---
Author Organization [facility] [place] [address] Care Team Providers Care Director Of Resource Development Name Role Phone Beena Wilkes APRN Primary Care Provider [phone] Encounter Details Date Type Department Care Team (Latest Contact Info) Description 01/28/2019 10:20 AM EDT [place] [address] PAD (peripheral artery disease) Social History Tobacco [...] Procedure Name Priority Date/Time Associated Diagnosis Comments ABORH RECHECK STATUS Routine 01/28/2019 11:11 AM EDT HC HEMOGRAM Routine 01/28/2019 11:11 AM EDT PAD (peripheral artery disease) HC ABO-MICROTITER Routine 01/28/2019 11: 11 AM EDT PAD (peripheral artery disease) ABO/RH TYPING Routine 01/28/2019 11:11 AM EDT PAD (peripheral artery disease) ANTIBODY SCREEN Routine 01/28/2019 11:11 AM EDT PAD (peripheral artery disease) HC PREALBUMIN, SERUM Routine 01/28/2019 11:11 AM EDT PAD (peripheral artery disease) BASIC METABOLIC PANEL (NON-FASTING) Routine 01/28/2019 11:11 AM EDT PAD (peripheral artery disease) documented in this encounter Results * ABORH Recheck Status (01/28/2019 11:11 AM EDT) ABORH Type Recheck Completed [facility] Blood specimen (specimen) 01/28/2019 11:11 AM EDT 01/28/2019 11:33 AM EDT Narrative Resulting Agency Comment Spec In Lab Judy Gilbert MD BLOOD BANK LAB ORDERABLES Performing Organization Address City/[facility]/ZIP Co de Phone Number [place] [place] [address] * Antibody screen (01/28/2019 11:11 AM EDT) [facility] Ab Screen Interp Negative [facility] Expires at [id number] on: 03/14/2019 [facility] Comment: Corrected from 03/10/19 0:00:00 EDT [Unknown] on 03/03/19 16:10:06 EDT by Imani Villa Blood specimen (specimen) 01/28/2019 11:11 AM EDT 01/28/2019 11:33 AM EDT Narrative Resulting Agency Comment Spec In Lab Judy Gilbert MD BLOOD BANK LAB ORDERABLES Performing Organization Address City/[facility]/ZIP Co de Phone Number [facility] [place] [address] * ABO/Rh Typing (01/28/2019 11:11 AM EDT) ABORH Type A Pos [facility] Blood specimen (specimen) 01/28/2019 11:11 AM EDT 01/28/2019 11:33 AM EDT Narrative Resulting Agency Comment Spec In Lab Judy Gilbert MD BLOOD BANK LAB ORDERABLES Performing Organization Address City/[facility]/ZIP Co de Phone Number [facility] [place] [address] * (ABNORMAL) Hemogram (01/28/2019 11:11 AM EDT) WBC 6.6 4.0 - 9.5 x10(3)/[facility] LABORATORY RBC 4.16 4.00 - 5.21 x10(6)/[facility]ATORY Hemoglobin 13.3 11.7 - 15.5 gm/dL [facility] Hematocrit 40.4 35.7 - 45.8 % [facility] MCV 97.1(H) 82.6 - 94.4 fL [facility] MCH 32.0 27.1 - 32.0 pg [facility] MCHC 32.9 31.7 - 35.0 gm/dL [facility] Platelets 287 145 - 357 x10(3)/[facility] LABORATORY RDWSD 44.3 37.0 - 46.0 [facility] LABORATORY RDWCV 12.3 11.5 - 14.1 % [facility] MPV 10.0 7.6 - 12.9 [facility] LABORATORY nRBC % Auto 0.0 % [facility] nRBC Abs Auto 0.000 0.000 - 0.000 x10(3)/[facility] Blood specimen (specimen) 01/28/2019 11:11 AM EDT 01/28/2019 11:40 AM EDT Narrative Resulting Agency Comment Spec In Lab Judy Gilbert MD HEMATOLOGY ORDE RABLES Performing Organization Address City/[facility]/ZIP Co de Phone Number [facility] [place] [address] * (ABNORMAL) Basic Metabolic Panel (non-fasting) (01/28/2019 11:11 AM EDT) Glucose Lvl 120 65 - 199 mg/dL [facility] Comment:Diabetes: >=200 mg/d L plus symptoms BUN 12 8 - 18 mg/dL [facility] Creatinine 0.53(L) 0.70 - 1.20 mg/dL [facility] Sodium 139 135 - 145 mmol/L [facility] Potassium 4.4 3.5 - 5.0 mmol/L [facility] Comment: Please note: ??Patients with WBC >100,000 may have falsely elevated Potassium levels. ??For accurate Potassium quantification in these patients send serum separator tube (gold top) for subsequent determinations. ??Contact the Clinical Chemistry Laboratory if there are any questions. Chloride 101 98 - 107 mmol/L [facility] CO2 27 22 - 31 mmol/L [facility] Anion Gap 11 5 - 15 mmol/L [facility] Calcium 9.2 8.5 - 10.5 mg/dL [facility] Estimated GFR 108 >=60 mL/min/1. 73 m?? [facility] Comment: The eGFR was calculated using the CKD-EPI equation. As with all creatinine based estimates of kidney function, eGFR values calculated with the CKD-EPI equation are not accurate in patients with acute kidney failure, extremes of body mass or the acutely ill. [email or web address] eGFR 126 >=60 mL/min/1. 73 m?? [facility] Comment: The eGFR was calculated using the CKD-EPI equation. As with all creatinine based estimates of kidney function, eGFR values calculated with the CKD-EPI equation are not accurate in patients with acute kidney failure, extremes of body mass or the acutely ill. [email or web address] Blood specimen (specimen) 01/28/2019 11:11 AM EDT 01/28/2019 11:40 AM EDT Narrative Resulting Agency Comment Spec In Lab Judy Gilbert MD CHEMISTRY ORDER ZAINA [facility] [address] * Prealbumin (01/28/2019 11:11 AM EDT) Prealbumin 33 20 - 40 mg/dL [facility] Comment: Prealbumin levels are generally lower in the pediatric population; adult concentrations are usually attained near puberty. Blood specimen (specimen) 01/28/2019 11:11 AM EDT 01/28/2019 11:40 AM EDT Narrative Resulting Agency Comment Spec In Lab Judy Gilbert MD CHEMISTRY ORDER ZAINA Performing Organization Address [facility] Co de Phone Number [place] [place] [address] documented in this encounter Visit Diagnoses Diagnosis PAD (peripheral artery disease) Peripheral vascular disease, unspecified documented in this encounter Care Teams Director Of Resource Development Relationship Specialty Start Date End Date Beena Wilkes, SHEREE [address] [place] [address] PCP - General Family Medicine 01/13/19 03/02/22 documented as of this encounter
--- OUTSIDE RECORDS SUMMARY | 2023-12-04 01:09 | XMS_ITS | Encounter Summary ---
Author Organization [facility] Address [facility] [place] [address] Care Team Providers Care Corporate Legal Manager Name Role Phone Beena Wilkes APRN Primary Care Provider [phone] Reason for Visit * Auth/Cert Specialty Diagnoses / Procedures Referred By Contac t Referred To Contact Diagnoses PAD (peripheral artery disease) PAD n/a Procedures PRO BYPASS GRAFT OTHR, AORTOBIFEMORAL @BYPASS GRAFT, AORTOBIFEMORAL W\ SYNTHETIC CONDUIT (WRVU 32.98) Referral ID Status Reason Start Date Expiration Date Visits Re quested Visits Authorized [id number] 1 1 Encounter Details Date Type Department Care Team (Late st Contact Info) Description 03/31/2019 12:00 PM EST - 03/31/2019 5:28 PM EST Surgery [place] [address] Judy Álvarez MD [facility] [place] [address] @BYPASS GRAFT, AORTOBIFEMORAL W\ SYNTHETIC CONDUIT (WRVU 32.98) Social History Tobacco Use Types Packs/Day Years [...] Sign Reading Time Taken Comments Blood Pressure 130/74 03/31/2019 10:27 AM EST Pulse 76 03/31/2019 10:27 AM EST Temperature 37.4 ??C (99.3 ??F) 03/31/2019 10:[address] Respiratory Rate 16 03/31/2019 10:27 AM EST Oxygen Saturation 100% 03/31/2019 10:27 AM EST Inhaled Oxygen Concentration - - Weight 44.5 kg (98 lb 3.2 oz) 03/31/2019 10:27 A M EST Height 154.9 cm (5' 1) 03/31/2019 10:27 AM EST Body Mass Index 20.08 03/31/2019 10:27 AM EST documented in this encounter Discharge Summaries * Judy Álvarez MD - 04/05/2019 1:53 PM EST Inpatient - Discharge Summary Patient Name: Walker Farmer Patient Age: 54 y.o. Birthdate: 1965 Admit date: 03/31/2019 Discharge date and time: 04/05/2019 Attending Physician: Judy Álvarez MD Discharging Provider: Heron Bailey MD Discharging Service: Vascular Surgery Operations/Major Procedures: 03/31/2019: Aortobifemoral bypass Active Hospital Problems: Active Hospital Problems Diagnosis ??? PAD (peripheral artery disease) Resolved Hospital Problems No resolved problems to display. Active Non Hospital Problems: Active Non-Hospital Problems Diagnosis ??? Drinks beer ??? Depression ??? Gout ??? Aortoiliac occlusive disease ??? Hypertension ??? Intermittent claudication ??? History of renal stent History of Presentation: 54 y.o. female with a hx of PAD (AIOD) and is s/p distal infrarenal aorticstent graft and bilateral iliac stenting in 2018 with left femoral cutdown. She was initially improved but in the last few months she developed recurrent LLE claudication with decline in SHA from 0.9to 0.5. 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 She presents today for elective aortobifemoral bypass. Since last clinic visit patient denies, fever, chills, CP, sob, and lower extremity symptoms stable. Case Date: 03/31/2019 Surgeon: Surgeon(s) and Role: * Judy Álvarez MD - Primary * Skye Vasquez MD - Fellow Procedure: BYPASS GRAFT, AORTOBIFEMORAL W\ SYNTHETIC CONDUIT (WRVU 32.98) (N/A) ?? Hospital Course: Pt admitted following the above procedure. She tolerated the procedure well as wasadmitted to the hospital postoperatively for ongoing care. Pain was well controlled with an epidural. She had an NG tube in place that was removed on POD2. Her diet was advanced slowly to regular over the hospital course and she was tolerating this well by day of discharge. The epidural was removedPOD4 and pain was well controlled on PO medications. She was ambulating independently. Pulses were intact and palpable in bilateral lower extremities. She was passing gas by POD2. On POD4 she had a small bowel movement, and had another bowel movement in the afternoon on POD5. On POD5 she had met all discharge criteria and was discharged to home in good condition. She will follow up in one week for abdominal staple removal and a wound check, and in one month for ABIs and a lower extremity duplex. Day of discharge exam: General: NAD, resting comfortably in bed CVS: Regular rate and rhythm Pulm: Normal work of breathing on room air GI: Abdomen soft, non tender, non distended. Incision c/d/i with abram. Vasc: RLE: No edema. Skin warm and pink. Brisk capillary refill. DP/PT 2+. LLE: No edema. Skin warm and pink. Brisk capillary refill. DP/PT 2+. Neuro: CN 2-12 grossly intact, nonfocal, moving all extremities. BP 146/83 (BP Location (NBP): Left arm, Patient Position: Sitting) Pulse 86 Temp 36.8 ??C (98.2??F) (Oral) Resp 17 Ht 154.9 cm (5' 1) Wt 48.2 kg (106 lb 4.2 oz) SpO2 100% BMI 20.08 kg/m?? Important Studies and Lab Data: Labs: Recent Labs 04/04/19 0615 WBC 6.1 HGB 9.2* PLATELET 233 No results for input(s): INR in the last 72 hours. Recent Labs 04/04/19 0615 NA 140 K 3.9 CL 106 CO2 24 BUN 4* CREATININE 0.38* MAGNESIUM 0.81 PHOS 2.2* Discharge Condition: Good Discharge to: home Future Appointments and Orders Future Appointments and Orders Future Appointments Provider Department Dept Phone 05/06/2019 7:30 AM Darlin Mendez [place] [facility] [place]rive at: [facility] 05/06/2019 8:30 AM Rashawn Dawn MD Vascular Surgery at [facility] Arrive at: [facility] Future Orders Complete By Expires SHA, legs, multiple levels [VAS8 Custom] 05/05/2019 11/04/2019 Process Instructions: There is no in-house vascular baker laboratory available on weeknights (5pm-8am), weekends, or holidays. IF THIS IS A REQUEST FOR AN EMERGENT STUDY DURING THOSE HOURS, please have the senior provider responsible for the patient page the Vascular Surgery Fellow/Senior Resident communication instructor to discuss options. Scheduling Instructions: Questions: Indication for study/signs & symptoms: s/p aortobifemoral bypass Question to be answered: lower extremity flow Preferred location?: [facility] Arterial Duplex, Bilat Legs [VAS3 Custom] 05/05/2019 (Approximate) 11/04/2019 Process Instructions: There is no in-house vascular baker laboratory available on weeknights (5pm-8am), weekends, or holidays. IF THIS IS A REQUEST FOR AN EMERGENT STUDY DURING THOSE HOURS, please have the senior provider responsible for the patient page the Vascular Surgery Fellow/Senior Resident communication instructor to discuss options. Scheduling Instructions: Questions: Indication for study/signs & symptoms: S/p aortobifemoral bypass Question to be answered: Please evaluate flow in bilateral legs from aortobifemoral bypass Is there a RIGHT LOWER EXTREMITY graft?: Yes RIGHT Graft Location: aorto-common femoral artery Is there a LEFT LOWER EXTREMITY graft?: Yes Graft Location: aorto-common femoral artery Preferred location?: [facility] Anticoagulation & Antiplatelet: Anticoagulation: none Agent: n/a Indication: n/a Intended Duration: n/a Antiplatelet: yes Agent: ASA [id number] Indication: cardiovascular disease Intended Duration: indefinitely For questions regarding these medications, please contact: vascular surgery clinic Discharge Medications: Your Medications New Medications Dose Details acetaminophen 325 mg Tab Commonly known as: TYLENOL Take 2 tablets by mouth every 6 hours as needed for Pain. 650 mg Quantity: 30 tablet Refills: 1 oxyCODONE 5 mg Tab Commonly known as: ROXICODONE Take 1 tablet by mouth every 4 hours as needed for Pain. 5 mg Quantity: 20 tablet Refills: 0 polyethylene glycol 17 gram Pwpk Commonly known as: MIRALAX Take 17 g by mouth daily. Start taking on: April 06, 2019 17 g Quantity: 14 each Refills: 0 senna-docusate 8.6-50 mg Tab Commonly known as: PERICOLACE Take 1 tablet by mouth 2 times daily. 1 tablet Quantity: 60 tablet Refills: 11 Continued medications, unchanged Dose Details amLODIPine 10 mg Tab Commonly known as: NORVASC Take 1 tablet by mouth daily. 10 mg Quantity: 90 tablet Refills: 3 aspirin 81 mg Tbec Take 81 mg by mouth daily. 81 mg Refills: 0 atorvastatin 40 mg Tab Commonly known as: LIPITOR Take 1 tablet by mouth daily. 40 mg Quantity: 90 tablet Refills: 3 hydroCHLOROthiazide 12.5 mg Tab Commonly known as: HYDRODIURIL Take 2 tablets by mouth daily. 25 mg Quantity: 90 tablet Refills: 0 nicotine 21 mg/24 hr Pt24 Commonly known as: NICODERM CQ Place 21 patches onto the skin daily. 21 patch Refills: 0 Updated Allergies/ADRs: Allergies Allergen Reactions ??? Effexor [Venlafaxine] Pt unsure of reaction was 25 years ago ??? Trazodone Pt unsure of reaction was 25 years ago Follow-up Recommendations for Providers: She will follow up in one week for abdominal staple removal and a wound check, and in one month forABIs and a lower extremity duplex. Instructions Given to Patient at Discharge: Patient Instructions Patient Instructions You were admitted on 03/31/2019 after having an aortobifemoral bypass to get more blood flow to your legs. All of this went very well. Dr. Álvarez will want you to be seen in two weeks for a woundcheck and in approximately one month with ABIs and a duplex of your bypass first this within a weekor so please call our office as your followup is very important. Call your doctor if: Any fever, any drainage, redness or separation of your incision, increased pain or change in temperature of your leg Activity level: up as tolerated but watch for swelling of your leg. Manage this with leg elevation,toes higher than your nose and also can use acewrapping from your foot to below knee, tape in place, rewrap as necessary. Diet: resume your previous regular diet Driving: none right now with pain medication use Shower/Bath: ok to shower and wash all incisions under running water, pat dry. No soaking in a pool/bath/hottub for 2-4 weeks Wound Care: You should have your abram removed in clinic in approximately 1 week. Please call theclinic with any questions about this appointment or general wound care. For any problems or questions please call [phone] OTR Broussard, director of education and training Nurse Clinician For issues on weeknights after 5pm and weekends please call [phone] and ask for the Vascular Fellow communication instructor. Heron Bailey MD 04/05/2019 documented in this encounter Discharge Instructions * Discharge Instructions* Buck Watts, RN - 04/03/2019 5:15 PM EST Congratulations for quitting smoking! Your quit date for quitting smoking is 03/31/2019 ?? You have chosen to quit smoking using Nicotine patches daily and lozenges as needed. ?? Nicotine patch instructions: Use the 21 mg nicotine patches daily for 4 weeks then, Decrease to the 14 mg patches daily for 2 weeks then, Decrease to the 7 mg patches daily for 2 weeks. ?? If at any time when you decrease the dose you feel an increase in cravings to smoke you may go backto the higher dose for another 2 weeks and then try to decrease the dose again. Do not hesitate to call if you have questions about this or are struggling with cravings or withdrawal symptoms. Place the patch on your skin in an area that has a minimal amount of hair, typically between the neck and waist or upper arms. Avoid placing it over scars or tattoos. Change the place where you put it on your skin daily. Remove the patch each morning and replace with a new patch. Fold the patch in half, with the sticky sides in and dispose of it safely, keeping it out of reach of children or pets. Some patients experience nightmares or bad dreams on the patch. If this happens you should remove the patch at bedtime and just replace it each morning. ?? The nicotine patch releases a constant amount of nicotine in the body. The nicotine dissolves rightthrough the skin and enters the body. Less nicotine is obtained through the patch than in cigarettes. The patch does NOT contain all the tars and poisonous gases that are found in cigarettes. ?? Side effects from wearing the patch can include: headaches, dizziness, upset stomach, weakness, blurred vision, vivid dreams, mild itching and burning on the skin, and diarrhea. ?? Wearing the nicotine patch decreases the chances of suffering from several of the major smoking withdrawal symptoms such as tenseness, irritability, drowsiness and lack of concentration. ?? The nicotine patch can be combined with other Nicotine Replacement Therapy products such as Nicotine gum or lozenges. Ask your healthcare provider about combination therapy to increase your chances of successfully quitting tobacco for good! ?? The US Food and Drug Administration has recently released a statement that there are no significantrisks associated with the use of Nicotine Replacement Therapy products for longer than the labeled number of weeks of use. ?? If you are still having strong cravings to smoke or are struggling to quit completely while using the Nicotine patch talk with your healthcare provider for additional help. ?? References: Treating Tobacco Use and Dependence, Clinical Practice Guideline 2008 Update, U.S. Department of Health and Human Services, September 2007 Nicotine lozenge instructions: Use the 2 mg lozenges as soon as you wake up, 30 minutes before meals and at bedtime at a minimum. ?? Nicotine lozenges must be used properly in order to be effective. Nicotine from the lozenge is absorbed through the mucous membranes in your mouth at a certain acidity or pH level. Therefore do not eat or drink anything but water for 15 minutes prior to or during use. ?? Directions: Place the nicotine lozenge on the tongue or between the cheek and the jaw. Allow the lozenge to dissolve. Do not bite, chew or swallow whole or in pieces. Do not ???work?? the lozenge like a hard candy or you may create too much saliva and swallow this extra liquid which may upset yourstomach. The most common side effects from Nicotine lozenges are nausea, hiccups and heartburn. This can be reduced by following the instructions for proper use. ?? Nicotine lozenges come in two strengths, 2 mg and 4 mg. You should use the 2 mg lozenge if you smoke your first cigarette more than 30 minutes after waking. You should use the 4 mg lozenge if you smoke your first cigarette less than 30 minutes after waking. You can use up to 20 lozenges a day. ?? Nicotine lozenges can be combined with Nicotine patches for increased chances of successfully quitting tobacco for good! ?? The US Food and Drug Administration has recently released a statement that there are no significantrisks associated with the use of Nicotine Replacement Therapy products for longer than the labeled number of weeks of use. ?? References: Treating Tobacco Use and Dependence, Clinical Practice Guideline 2008 Update, U.S. Department of Health and Human Services, September 2007 * Patient Instructions* Heron Bailey MD - 04/01/2019 6:43 AM EST Patient Instructions You were admitted on 03/31/2019 after having an aortobifemoral bypass to get more blood flow to your legs. All of this went very well. Dr. Álvarez will want you to be seen in two weeks for a woundcheck and in approximately one month with ABIs and a duplex of your bypass first this within a weekor so please call our office as your followup is very important. Call your doctor if: Any fever, any drainage, redness or separation of your incision, increased pain or change in temperature of your leg Activity level: up as tolerated but watch for swelling of your leg. Manage this with leg elevation,toes higher than your nose and also can use acewrapping from your foot to below knee, tape in place, rewrap as necessary. Diet: resume your previous regular diet Driving: none right now with pain medication use Shower/Bath: ok to shower and wash all incisions under running water, pat dry. No soaking in a pool/bath/hottub for 2-4 weeks Wound Care: You should have your abram removed in clinic in approximately 1 week. Please call theclinic with any questions about this appointment or general wound care. For any problems or questions please call [phone] TOR Broussard, director of education and training Nurse Clinician For issues on weeknights after 5pm and weekends please call [phone] and ask for the Vascular Fellow communication instructor. documented in this encounter Medications at Time of Discharge Medication Sig Dispensed Refills Start Date End Date nicotine polacrilex (COMMIT) [address] [...] 04/05/2019 02/11/2021 documented as of this encounter Progress Notes * Rachel Bansal RN - 04/05/2019 3:36 PM EST Acute Pain Service - Epidural 30 Day Follow-up Call - Operative Procedures: Procedure(s) with comments: @BYPASS GRAFT, AORTOBIFEMORAL W\ SYNTHETIC CONDUIT (WRVU 32.98) - Time adjusted per provider DH AN APS FOLLOWUP CALL: 05/07/2019 3:04 PM Opioid prescription on Discharge: Yes Opioid Prescription at 30 days: No During this hospital stay, how often did hospital staff talk with you about how much pain you had? Always During this hospital stay, how often did hospital staff talk with you about how to treat your pain?Always Validated Pain Experience Satisfaction Score:: 3 APS Nurse: Rachel Bansal RN * Ade Mak RN - 04/05/2019 2:19 PM EST Patient Name: Walker Farmer Patient Age: 54 y.o. Birthdate: 1965 Admit date: 03/31/2019 Attending Physician: Judy Álvarez MD Pt d/c'd to home with no services. Reviewed D/C instructions with patient and family, pt aware of when and why to notify MD and of follow up appointments. Pt had no questions regarding summary instructions. IV d/c'd, catheter intact. Rx rcvd by pt. Pt left via wheelchair with her who will be transporting her home. * Bill Enciso MD - 04/04/2019 10:00 AM EST Acute Pain Service - Epidural Daily Management VITAL SIGNS: Visit Vitals BP 127/48 (BP Location (NBP): Right arm, Patient Position: Lying) Pulse 86 Temp 36.9 ??C (98.4 ??F) (Oral) Resp 16 Ht 154.9 cm (5' 1) Wt 47.1 kg (103 lb 12.8 oz) SpO2 99% BMI 19.61 kg/m?? Body mass index is 19.61 kg/m??. Labs: WBC Date Value Ref Range Status 04/04/2019 6.1 4.0 - 9.5 x10(3)/mcL Final Hemoglobin Date Value Ref Range Status 04/04/2019 9.2 (L) 11.7 - 15.5 gm/dL Final Hematocrit Date Value Ref Range Status 04/04/2019 28.1 (L) 35.7 - 45.8 % Final Platelets Date Value Ref Range Status 04/04/2019 233 145 - 357 x10(3)/mcL Final PT Date Value Ref Range Status 03/31/2019 13.2 (H) 9.4 - 12.5 sec Final PTT Date Value Ref Range Status 03/31/2019 >160 (CRIT) 25 - 37 sec Final Comment: Called by: FARZANA, Read back by: Hosea Whittaker, Date/Time:03/31/19 17:02. The PTT is NOT appropriate for heparin monitoring. Use the Anti-Xa level for heparin monitoring (HEP UFH) or LMWH monitoring (HEP LMW). A PTT less than 37 seconds generally indicates adequate hemostasis. Operative Procedures: Procedure(s) with comments: @BYPASS GRAFT, AORTOBIFEMORAL W\ SYNTHETIC CONDUIT (WRVU 32.98) - Time adjusted per provider APS Opioid Administration Hx All administrations since 04/03/2019 are shown below each listed medication. Other Order Route Rate Dose Action Date HYDROmorphone (Dilaudid) 10 mcg/mL, BUpivacaine (Marcaine) 0.1% (0.1 mg/mL) (1/10%) in sodium chloride 0.9% 250 mL epidural Epidural 6 mL/hr 6 mL/hr Rate/Dose Change 04/04/2019 HYDROmorphone (Dilaudid) 10 mcg/mL, BUpivacaine (Marcaine) 0.1% (0.1 mg/mL) (1/10%) in sodium chloride 0.9% 250 mL epidural Epidural 10 mL/hr 10 mL/hr New Bag 04/04/2019 nalbuphine (NUBAIN) 10 mg/mL injection 2 mg Intravenous 2 mg Given 04/03/2019 HYDROmorphone (Dilaudid) 10 mcg/mL, BUpivacaine (Marcaine) 0.1% (0.1 mg/mL) (1/10%) in sodium chloride 0.9% 250 mL epidural Epidural 10 mL/hr 10 mL/hr New Bag 04/03/2019 AN APS EPIDURAL ROUNDIN04/04/2019 10:00 AM Average Numeric Rating Pain Score (0-10):: 0 Post-Op Day:: 4 Epidural Day:: 5 Epidural Infusion (solution):: HYDROmorphone 10 mcg/mL and BUpivacaine 0.1% Epidural Infusion Rate (mL/hr): 10 PCEA Dose (mL): 5 Out of Bed: Yes Ambulation: Yes Able to Use Incentive Spirometry: Yes Escalation of Care: No Tolerating Regular Diet: No Epidural Catheter Removed (Intact unless noted in Comments): Yes 04/04/2019 3:58 PM Notes/Plan: Walker is doing very well today. She currently is denying any pain on the current regimen of epidural,Aspirin, Tylenol, and Lidoderm Patches x 3. She received 11 of 11 PCEA doses in the last 24 hours and states that she has not used her button since 13:30 yesterday. She is on a Sips and chips diet and has passed flatus several times. She denies numbness, tingling, itching, or nausea and she is motivated to have her epidural removed. Walker's epidural dressing is moderately saturated, but free from signs of infection. She is achieving 1,500mL on her incentive spirometer. Plan: Epidural infusion rate decreased to 6mL/hr and PCEA decreased to 3mL q 20 minutes to begin wean. APS will plan to wean further this afternoon, if pain remains well-controlled, with the possibilityof removal today or tomorrow morning. Vascular service will add PO analgesic of choice to facilitate epidural wean. Addendum 1600: Epidural removed with intact tip. RACHEL Spangler RN, have performed the documentation for this encounter in the presence of andacting as a scribe for Dr. Bill Enciso. APS Nurse: Rachel Bansal RN Resident:: Rusty Cortes MD Attending Physician:: Bill Enciso MD I performed the above scribed service and agree with the accuracy of the note. I performed the above scribed service and agree with the accuracy of the note. * Monie Saini - 04/04/2019 9:58 AM EST Nutrition Services - NPO note Walker Farmer : 1965 AGE: 54 y.o. Patient Active Problem List Diagnosis Date Noted ??? Hospital-PAD (peripheral artery disease) 03/27/2019 ??? Drinks beer 01/28/2019 ??? Depression 01/28/2019 ??? Gout 01/28/2019 ??? Aortoiliac occlusive disease 03/05/2018 ??? Hypertension 01/08/2018 ??? Intermittent claudication 12/31/2017 ??? History of renal stent 12/31/2017 Ht Readings from Last 3 Encounters: 03/31/19 154.9 cm (5' 1) 01/28/19 154.9 cm (5' 1) 01/17/19 156.2 cm (5' 1.5) Wt Readings from Last 3 Encounters: 04/03/19 47.1 kg (103 lb 12.8 oz) 01/28/19 45.4 kg (100 lb) 01/17/19 44.1 kg (97 lb 4 oz) Body mass index is 19.61 kg/m??. Labs:Results for WALKER FARMER ( ) as of 04/04/2019 09:58 Ref. Range 04/04/2019 06:15 Sodium Latest Ref Range: 135 - 145 mmol/L 140 Potassium Latest Ref Range: 3.5 - 5.0 mmol/L 3.9 BUN Latest Ref Range: 8 - 18 mg/dL 4 (L) Creatinine Latest Ref Range: 0.70 - 1.20 mg/dL 0.38 (L) eGFR Latest Ref Range: >=60 mL/min/1.73 m?? 121 eGFR Latest Ref Range: >=60 mL/min/1.73 m?? 140 Glucose Lvl Latest Ref Range: 65 - 199 mg/dL 152 Calcium Latest Ref Range: 8.5 - 10.5 mg/dL 8.1 (L) Magnesium Latest Ref Range: 0.69 - 1.07 mmol/L 0.81 Phosphorus Latest Ref Range: 2.5 - 4.5 mg/dL 2.2 (L) Patient has been NPO and/or on clear liquids for 5 days. If diet can not be advanced within 24 hours, please consider alternative means of nutrition support. Monie Saini, GERRI Pager [phone] * Laura Quiros ENGLISH [employer] FAC[employer]Y - 04/04/2019 8:22 AM EST Vascular Surgery Progress Note ID: Walker Farmer is a 54 y.o. female with a hx of PAD (AIOD) and is s/p distal infrarenal aortic stent graft and bilateral iliac stenting in 2018 with left femoral cutdown. She was initially improved but in the last few months she developed recurrent LLE claudication with decline in SHA from 0.9 to 0.5. She presents today for elective aortobifemoral bypass. Operations This Hospitalization: 03/31: aortobifemoral bypass 24 hour events: Hemodynamically stable, no acute events Tolerated sips and chips Passing flatus No nausea/emesis. No evidence of return of bowel function Pain adequately controlled with epidural. Ambulating well with assistance. O: Temp: [36.8 ??C (98.2 ??F)-36.9 ??C (98.4 ??F)] Heart Rate: -- Resp: [16-20] BP: (104-149)/(48-87) SpO2: [97 %-100 %] Heart Rate from SpO2: [70 bpm-86 bpm] I/O last 3 completed shifts: In: 4624.2 [P.O.:300; I.V.:3705; Other:619.2] Out: 2750 [Urine:2550; Other:200] Physical Exam: General: NAD, resting comfortably in bed CVS: Regular rate and rhythm Pulm: Normal work of breathing on room air GI: Abdomen soft, non tender, non distended. Incision c/d/i. Vasc: RLE: No edema. Skin warm and pink. Brisk capillary refill. DP/PT 2+. LLE: No edema. Skin warm and pink. Brisk capillary refill. DP/PT 2+. Neuro: CN 2-12 grossly intact, nonfocal, moving all extremities. Recent Labs 04/04/19614 WBC 6.1 HGB 9.2* HCT 28.1* PLATELET 233 Recent Labs 04/04/1961404/01/19 1941 NA 140 140 K 3.9 3.8 CL 106 104 CO2 24 24 BUN 4* 6* CREATININE 0.38* 0.50* PHOS 2.2* 2.5 CALCIUM 8.1* 8.6 New Imaging None Assessment: Walkre Farmer is a 54 y.o. female with history of recurrent LLE claudication despite infrarenal aortic stent graft and bilateral iliac stenting now 4 Days Post-Op aortobifemoral bypass. Continues to recover well from surgery. Pain adequately controlled - will continue to encourage outof bed and ambulation as tolerated. NGT with minimal output today, will remove this morning. Plan to advance to sips/chips if she is feeling well after NGT removal. -Acute blood loss anemia secondary surgery Hgb 9.2 today from 11.1 at baseline - Pain control: epidural per APS, appreciate recs. Scheduled tylenol and lidoderm patches. - Diet: Clear Liquid, - mIVF at 100cc/hr - SQH 5000 TID -Dulcolax supp today - Holding home amlodipine and hctz - Dispo: floor status full code Laura Quiros APRN 04/04/2019 * Javier Duran MD - 04/03/2019 1:20 PM EST Acute Pain Service - Epidural Daily Management VITAL SIGNS: Visit Vitals BP 104/63 (BP Location (NBP): Right arm, Patient Position: Sitting) Pulse 86 Temp 36.9 ??C (98.4 ??F) (Oral) Resp 20 Ht 154.9 cm (5' 1) Wt 47.1 kg (103 lb 12.8 oz) SpO2 100% BMI 19.61 kg/m?? Body mass index is 19.61 kg/m??. Labs: WBC Date Value Ref Range Status 03/31/2019 15.4 (H) 4.0 - 9.5 x10(3)/mcL Final Hemoglobin Date Value Ref Range Status 04/01/2019 10.9 (L) 11.7 - 15.5 gm/dL Final Hematocrit Date Value Ref Range Status 04/01/2019 32.4 (L) 35.7 - 45.8 % Final Platelets Date Value Ref Range Status 03/31/2019 254 145 - 357 x10(3)/mcL Final PT Date Value Ref Range Status 03/31/2019 13.2 (H) 9.4 - 12.5 sec Final PTT Date Value Ref Range Status 03/31/2019 >160 (CRIT) 25 - 37 sec Final Comment: Called by: FARZANA, Read back by: Hosea Whittaker, Date/Time:03/31/19 17:02. The PTT is NOT appropriate for heparin monitoring. Use the Anti-Xa level for heparin monitoring (HEP UFH) or LMWH monitoring (HEP LMW). A PTT less than 37 seconds generally indicates adequate hemostasis. Operative Procedures: Procedure(s) with comments: @BYPASS GRAFT, AORTOBIFEMORAL W\ SYNTHETIC CONDUIT (WRVU 32.98) - Time adjusted per provider APS Opioid Administration Hx All administrations since 04/02/2019 are shown below each listed medication. Other Order Route Rate Dose Action Date HYDROmorphone (Dilaudid) 10 mcg/mL, BUpivacaine (Marcaine) 0.1% (0.1 mg/mL) (1/10%) in sodium chloride 0.9% 250 mL epidural Epidural 10 mL/hr 10 mL/hr New Bag 04/03/2019 Epidural 10 mL/hr 10 mL/hr New Bag 04/02/2019 nalbuphine (NUBAIN) 10 mg/mL injection 2 mg Intravenous 2 mg Given 04/02/2019 Intravenous 2 mg Given 04/02/2019 HYDROmorphone (Dilaudid) 10 mcg/mL, BUpivacaine (Marcaine) 0.1% (0.1 mg/mL) (1/10%) in sodium chloride 0.9% 250 mL epidural Epidural 10 mL/hr 10 mL/hr New Bag 04/02/2019 nalbuphine (NUBAIN) 10 mg/mL injection 2 mg Intravenous 2 mg Given 04/02/2019 AN APS EPIDURAL ROUNDIN04/03/2019 9:20 AM Average Numeric Rating Pain Score (0-10):: 3 Post-Op Day:: 3 Epidural Day:: 4 Epidural Infusion (solution):: HYDROmorphone 10 mcg/mL and BUpivacaine 0.1% Epidural Infusion Rate (mL/hr): 10 PCEA Dose (mL): 5 Out of Bed: Yes Ambulation: Yes Able to Use Incentive Spirometry: Yes Escalation of Care: Yes Tolerating Regular Diet: No Epidural Catheter Removed (Intact unless noted in Comments): No Notes/Plan: Walker is doing well this morning. Her nasogastric tube has been removed and she has not yet had ROBF.She is able to ambulate well but endorses pain when she is sleeping. We made no changes to her epidural today, and will begin weaning tomorrow once her diet has been advanced. MALLORY Spangler RN, have performed the documentation for this encounter in the presence of and acting as a scribe for Dr. Duran. APS Nurse: Mallory Booker RN Resident:: Rusty Cortes MD Attending Physician:: Javier Duran MD I performed the above scribed service and agree with the accuracy of the note. * Heron Bailey MD - 04/03/2019 9:36 AM EST Vascular Surgery Progress Note ID: Walker Farmer is a 54 y.o. female with a hx of PAD (AIOD) and is s/p distal infrarenal aortic stent graft and bilateral iliac stenting in 2018 with left femoral cutdown. She was initially improved but in the last few months she developed recurrent LLE claudication with decline in SHA from 0.9 to 0.5. She presents today for elective aortobifemoral bypass. Operations This Hospitalization: 03/31: aortobifemoral bypass 24 hour events: Hemodynamically stable, no acute events NGT pulled back 5cm, continues to have low output No nausea/emesis. No evidence of return of bowel function Pain adequately controlled with epidural. Ambulating well with assistance. O: Temp: [36.8 ??C (98.2 ??F)-37.5 ??C (99.5 ??F)] Heart Rate: -- Resp: [16-20] BP: (125-143)/(69-82) SpO2: [98 %-99 %] Heart Rate from SpO2: [84 bpm-94 bpm] I/O last 3 completed shifts: In: 5232.9 [I.V.:4459; Other:773.9] Out: 2735 [Urine:2335; Other:400] Physical Exam: General: NAD, resting comfortably in bed CVS: Regular rate and rhythm Pulm: Normal work of breathing on room air GI: Abdomen soft, non tender, non distended. Incision c/d/i. Vasc: RLE: No edema. Skin warm and pink. Brisk capillary refill. DP/PT 2+. LLE: No edema. Skin warm and pink. Brisk capillary refill. DP/PT 2+. Neuro: CN 2-12 grossly intact, nonfocal, moving all extremities. Recent Labs 04/01/19 0524 03/31/19 2202 03/31/19 1844 03/31/19 1630 WBC -- 15.4* 14.8* 17.2* HGB 10.9* 10.9* 11.0* 11.1* HCT 32.4* 32.3* 33.0* 33.2* PLATELET -- 254 267 280 Recent Labs 04/01/19 19404/01/19 0524 03/31/19 1844 NA 140 139 144 K 3.8 3.6 3.2* CL 104 102 109* CO2 24 23 22 BUN 6* 6* 7* CREATININE 0.50* 0.58* 0.51* PHOS 2.5 -- -- CALCIUM 8.6 8.2* 8.2* New Imaging None Assessment: Walker Farmer is a 54 y.o. female with history of recurrent LLE claudication despite infrarenal aortic stent graft and bilateral iliac stenting now 3 Days Post-Op aortobifemoral bypass. Continues to recover well from surgery. Pain adequately controlled - will continue to encourage outof bed and ambulation as tolerated. NGT with minimal output today, will remove this morning. Plan to advance to sips/chips if she is feeling well after NGT removal. - Pain control: epidural per APS, appreciate recs. Scheduled tylenol and lidoderm patches. - Diet: NPO diet (Give Meds), remove NGT - mIVF at 100cc/hr - BID PPI - Holding home amlodipine and hctz - Dispo: floor status Heron Bailey MD 04/03/2019 * Ezequiel Morales - 04/02/2019 2:25 PM EST Narrative:Visited to introduce and assess acceptance of [employer]. Pt was not available for visit and I will visit an other time. Assessment: Outcome: Follow up: Time: * Rachel Bansal RN - 04/02/2019 11:15 AM EST Acute Pain Service - Epidural Daily Management VITAL SIGNS: Visit Vitals BP 120/70 (BP Location (NBP): Right arm, Patient Position: Lying) Pulse 86 Temp 36.8 ??C (98.3 ??F) (Oral) Resp 15 Ht 154.9 cm (5' 1) Wt 46.5 kg (102 lb 8.2 oz) SpO2 99% BMI 19.37 kg/m?? Body mass index is 19.37 kg/m??. Labs: WBC Date Value Ref Range Status 03/31/2019 15.4 (H) 4.0 - 9.5 x10(3)/mcL Final Hemoglobin Date Value Ref Range Status 04/01/2019 10.9 (L) 11.7 - 15.5 gm/dL Final Hematocrit Date Value Ref Range Status 04/01/2019 32.4 (L) 35.7 - 45.8 % Final Platelets Date Value Ref Range Status 03/31/2019 254 145 - 357 x10(3)/mcL Final PT Date Value Ref Range Status 03/31/2019 13.2 (H) 9.4 - 12.5 sec Final PTT Date Value Ref Range Status 03/31/2019 >160 (CRIT) 25 - 37 sec Final Comment: Called by: FARZANA, Read back by: Hosea Whittaker, Date/Time:03/31/19 17:02. The PTT is NOT appropriate for heparin monitoring. Use the Anti-Xa level for heparin monitoring (HEP UFH) or LMWH monitoring (HEP LMW). A PTT less than 37 seconds generally indicates adequate hemostasis. Operative Procedures: Procedure(s) with comments: @BYPASS GRAFT, AORTOBIFEMORAL W\ SYNTHETIC CONDUIT (WRVU 32.98) - Time adjusted per provider APS Opioid Administration Hx All administrations since 04/01/2019 are shown below each listed medication. Other Order Route Rate Dose Action Date nalbuphine (NUBAIN) 10 mg/mL injection 2 mg Intravenous 2 mg Given 04/02/2019 HYDROmorphone (Dilaudid) 10 mcg/mL, BUpivacaine (Marcaine) 0.1% (0.1 mg/mL) (1/10%) in sodium chloride 0.9% 250 mL epidural Epidural 10 mL/hr 10 mL/hr New Bag 04/02/2019 nalbuphine (NUBAIN) 10 mg/mL injection 2 mg Intravenous 2 mg Given 04/02/2019 Intravenous 2 mg Given 04/01/2019 HYDROmorphone (Dilaudid) 10 mcg/mL, BUpivacaine (Marcaine) 0.1% (0.1 mg/mL) (1/10%) in sodium chloride 0.9% 250 mL epidural Epidural 10 mL/hr 10 mL/hr Rate/Dose Change 04/01/2019 HYDROmorphone (Dilaudid) 10 mcg/mL, BUpivacaine (Marcaine) 0.1% (0.1 mg/mL) (1/10%) in sodium chloride 0.9% 250 mL epidural Epidural 8 mL/hr 8 mL/hr New Bag 04/01/2019 Epidural 8 mL/hr 8 mL/hr Rate/Dose Change 04/01/2019 AN APS EPIDURAL ROUNDIN04/02/2019 11:15 AM Average Numeric Rating Pain Score (0-10):: 3 Post-Op Day:: 2 Epidural Day:: 3 Epidural Infusion (solution):: HYDROmorphone 10 mcg/mL and BUpivacaine 0.1% Epidural Infusion Rate (mL/hr): 10 PCEA Dose (mL): 5 Out of Bed: Yes Ambulation: Yes Able to Use Incentive Spirometry: Yes Escalation of Care: No Tolerating Regular Diet: No Epidural Catheter Removed (Intact unless noted in Comments): No Notes/Plan: Walker states she is feeling much better today. She rates her pain 3/10 and has received 27 of 28 PCEAdemand doses in the last 24 hours. She is ambulating around the unit without issue and denies numbness, tingling, or nausea. She states that she has experienced two episodes of pruritus, for which Nubain was effective. Walker remains NPO with an NG tube in place, and has not passed flatus. She is using her incentive spirometer during commercial breaks appropriately. Her epidural insertion site is free from signs of infection. Plan: Continue current epidural regimen until return of bowel function. Recommend reordering Ofirmev until diet is advanced. IRACHEL, RN, have performed the documentation for this encounter in the presence of andacting as a scribe for Dr. Javier Duran. APS Nurse: Rachel Bansal RN Resident:: Di Avalos MD Attending Physician:: Javier Duran MD Associated attestation - Javier Duran MD - 04/02/2019 2:56 PM EST I performed the above scribed service and agree with the accuracy of the note. Patient doing much better today. Ambulating, demonstrating less painful behaviors. Performed IS to 1500. No flatus yet. Mild pruritis which resolves with Rx. Will continue to run epidural at this rate. Will begin wean once we start to see ROBF. Javier Duran MD * Heron Bailey MD - 04/02/2019 8:47 AM EST Vascular Surgery Progress Note ID: Walker Farmer is a 54 y.o. female with a hx of PAD (AIOD) and is s/p distal infrarenal aortic stent graft and bilateral iliac stenting in 2018 with left femoral cutdown. She was initially improved but in the last few months she developed recurrent LLE claudication with decline in SHA from 0.9 to 0.5. She presents today for elective aortobifemoral bypass. Operations This Hospitalization: 03/31: aortobifemoral bypass 24 hour events: Hemodynamically stable, no acute events NGT with 300cc light yellow output Pain adequately controlled with epidural Not yet passing gas, no BM O: Temp: [36.3 ??C (97.3 ??F)-37.3 ??C (99.1 ??F)] Heart Rate: [78-88] Resp: [13-22] BP: (107-145)/(62-76) SpO2: [95 %-99 %] Heart Rate from SpO2: [78 bpm-88 bpm] I/O last 3 completed shifts: In: 4683.9 [I.V.:4092; Other:480.9; NG/GT:30; IV Piggyback:81] Out: 5275 [Urine:4875; Other:400] Physical Exam: General: NAD, resting comfortably in bed CVS: Regular rate and rhythm Pulm: Normal work of breathing on room air GI: Abdomen soft, non tender, non distended. Incision c/d/i. Vasc: RLE: No edema. Skin warm and pink. Brisk capillary refill. DP/PT 2+. LLE: No edema. Skin warm and pink. Brisk capillary refill. DP/PT 2+. Neuro: CN 2-12 grossly intact, nonfocal, moving all extremities. Recent Labs 04/01/19 0524 03/31/19 2202 03/31/19 1844 03/31/19 1630 WBC -- 15.4* 14.8* 17.2* HGB 10.9* 10.9* 11.0* 11.1* HCT 32.4* 32.3* 33.0* 33.2* PLATELET -- 254 267 280 Recent Labs 04/01/19 1941 04/01/19 0524 03/31/19 1844 NA 140 139 144 K 3.8 3.6 3.2* CL 104 102 109* CO2 24 23 22 BUN 6* 6* 7* CREATININE 0.50* 0.58* 0.51* PHOS 2.5 -- -- CALCIUM 8.6 8.2* 8.2* New Imaging 04/02 CXR: IMPRESSION 1. An enteric tube tip and side-port projecting over the stomach at the antral pylorus region. Tip of this tube projected the expected region of the duodenal bulb. 2. Epidural catheter tip projects over T8. Assessment: Walker Farmer is a 54 y.o. female with history of recurrent LLE claudication despite infrarenal aortic stent graft and bilateral iliac stenting now 2 Days Post-Op aortobifemoral bypass. Continues to recover well from surgery. Pain adequately controlled. She did well with ambulation and sitting in chair yesterday; will continue to encourage out of bed as much as possible. NGT to remain in place while awaiting return of bowel function. - Pain control: epidural per APS, appreciate recs. Scheduled tylenol and lidoderm patches. - Discontinue barker catheter - Diet: NPO diet (Give Meds), NG tube to remain in place while awaiting return of bowel function - mIVF at 100cc/hr - BID PPI - Holding home amlodipine and hctz - Consult to smoking cessation, nicotine patches available - Stable for transfer to floor today Heron Bailey MD 04/02/2019 * Kizzy Villanueva, RD - 04/01/2019 11:48 AM EST Nutrition Initial Note Walker Farmer is a 54 y.o. female with a hx of PAD (AIOD) and is s/p distal infrarenal aortic stent graft and bilateral iliac stenting in 2018 with left femoral cutdown. She was initially improved but in the last few months she developed recurrent LLE claudication with decline in SHA from 0.9 to 0.5.She presents today for elective aortobifemoral bypass.? Reason for intervention: Low BMI Nutrition Recommendations: When medically appropriate, adv to regular diet As diet adv, will offer am snack per request Nutrition Services to follow NPO status vs diet advance Active Orders Diet NPO diet (Give Meds) Frequency: Effective Midnight Number of Occurrences: Until Specified Lab Results Component Value Date NA 139 04/01/2019 K 3.6 04/01/2019 CL 102 04/01/2019 CO2 23 04/01/2019 BUN 6 (L) 04/01/2019 CREATININE 0.58 (L) 04/01/2019 GLUCOSE 185 04/01/2019 CALCIUM 8.2 (L) 04/01/2019 Skin Status: Shift Pressure Injury Prevention Occiput: No Injury Thoracic Spine: No Injury Sacral: No Injury Ischial - left: No Injury Ischial - right: No Injury Heel - left: No Injury Heel - right: No Injury Elbow - left: No Injury Elbow - right: No Injury Device Sites: O2 sat monitor, IV sites, barker, ECG Leads, BP Cuff Relevant medications: KCl Assessment: Nutrition intake and intake history/Interview: Pt seen per low BMI. Pt currently post surgical w/ NGT to suction. Wt has been stable X1+ year. 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 Pt appears nutritionally stable. Will follow diet adv/toleracne vs npo days. Per pt request, will provide morning snack of yogurt when diet advances. Admit Weight: 44.54 kg Estimated body mass index is 18.45 kg/m?? as calculated from the following: Height as of this encounter: 154.9 cm (5' 1). Weight as of this encounter: 44.3 kg (97 lb 10.6 oz). Calera Body Weight:42.9- 47.7 kg Usual Body Weight: 44-45 kg Wt Readings from Last 10 Encounters: 04/01/19 44.3 kg (97 lb 10.6 oz) 01/28/19 45.4 kg (100 lb) 01/17/19 44.1 kg (97 lb 4 oz) 12/03/18 44.5 kg (98 lb) 07/09/18 46.7 kg (103 lb) 04/15/18 45.8 kg (101 lb) 03/05/18 45.4 kg (100 lb) 01/22/18 44.5 kg (98 lb) 01/08/18 44.5 kg (98 lb) Estimated needs: Calories: 1320 Protein:55 grams Nutrition Focused Physical Exam (NFPE): Not performed- pt appears well nourished PProtein-calorie Malnutrition: Not identified Nutrition to continue to follow up while inpatient [facility] FARNSWORTH Beeper #: [id number] * Heron Bailey MD - 04/01/2019 10:07 AM EST Vascular Surgery Progress Note ID: Walker Farmer is a 54 y.o. female with a hx of PAD (AIOD) and is s/p distal infrarenal aortic stent graft and bilateral iliac stenting in 2018 with left femoral cutdown. She was initially improved but in the last few months she developed recurrent LLE claudication with decline in SHA from 0.9 to 0.5. She presents today for elective aortobifemoral bypass. Operations This Hospitalization: 03/31: aortobifemoral bypass 24 hour events: To OR for above procedure Hemodynamically stable overnight Pain adequately controlled with epidural, denies nausea, vomiting, chest pain or shortness of breath. O: Temp: [36.8 ??C (98.3 ??F)-37.8 ??C (100 ??F)] Heart Rate: [76-101] Resp: [11-] BP: (105-157)/(54-83) SpO2: [91 %-100 %] Heart Rate from SpO2: [79 bpm-101 bpm] I/O last 3 completed shifts: In: 4107 [I.V.:3884; Other:143; NG/GT:30; IV Piggyback:50] Out: 3940 [Urine:2840; Other:100; Blood:1000] Physical Exam: General: NAD, resting comfortably in bed CVS: Regular rate and rhythm Pulm: Normal work of breathing on room air GI: Abdomen soft, non tender, non distended. Incision c/d/i. Vasc: RLE: No edema. Skin warm and pink. Brisk capillary refill. DP/PT 2+. LLE: No edema. Skin warm and pink. Brisk capillary refill. DP/PT 2+. Neuro: CN 2-12 grossly intact, nonfocal, moving all extremities. Recent Labs 04/01/19 0524 03/31/19 2202 03/31/19 1844 03/31/19 1630 WBC -- 15.4* 14.8* 17.2* HGB 10.9* 10.9* 11.0* 11.1* HCT 32.4* 32.3* 33.0* 33.2* PLATELET -- 254 267 280 Recent Labs 04/01/19 0524 03/31/19 1844 NA 139 144 K 3.6 3.2* CL 102 109* CO2 23 22 BUN 6* 7* CREATININE 0.58* 0.51* CALCIUM 8.2* 8.2* New Imaging ?? None Assessment: Walker Farmer is a 54 y.o. female with history of recurrent LLE claudication despite infrarenal aortic stent graft and bilateral iliac stenting now 1 Day Post-Op aortobifemoral bypass. Hemodynamically stable and recovering appropriately. Plan to encourage ambulation and mobilize today as tolerated. - Pain control: epidural per APS, appreciate recs. Scheduled tylenol and lidoderm patches. - Maintain barker catheter - Diet: NPO diet (Give Meds), NG tube to remain in place while awaiting return of bowel function - LR at 125cc/hr - BID PPI - ID: Ancef q8hr for 24 hours - Holding home amlodipine and hctz - Consult to smoking cessation, nicotine patches available * Javier Duran MD - 04/01/2019 9:12 AM EST Acute Pain Service - Epidural Daily Management VITAL SIGNS: Visit Vitals BP 112/54 (BP Location (NBP): Left arm) Pulse 82 Temp 37 ??C (98.6 ??F) (Oral) Resp 19 Ht 154.9 cm (5' 1) Wt 44.3 kg (97 lb 10.6 oz) SpO2 96% BMI 18.45 kg/m?? Body mass index is 18.45 kg/m??. Labs: WBC Date Value Ref Range Status 03/31/2019 15.4 (H) 4.0 - 9.5 x10(3)/mcL Final Hemoglobin Date Value Ref Range Status 04/01/2019 10.9 (L) 11.7 - 15.5 gm/dL Final Hematocrit Date Value Ref Range Status 04/01/2019 32.4 (L) 35.7 - 45.8 % Final Platelets Date Value Ref Range Status 03/31/2019 254 145 - 357 x10(3)/mcL Final PT Date Value Ref Range Status 03/31/2019 13.2 (H) 9.4 - 12.5 sec Final PTT Date Value Ref Range Status 03/31/2019 >160 (CRIT) 25 - 37 sec Final Comment: Called by: FARZANA, Read back by: Hosea Whittaker, Date/Time:03/31/19 17:02. The PTT is NOT appropriate for heparin monitoring. Use the Anti-Xa level for heparin monitoring (HEP UFH) or LMWH monitoring (HEP LMW). A PTT less than 37 seconds generally indicates adequate hemostasis. Operative Procedures: Procedure(s) with comments: @BYPASS GRAFT, AORTOBIFEMORAL W\ SYNTHETIC CONDUIT (WRVU 32.98) - Time adjusted per provider APS Opioid Administration Hx All administrations since 03/31/2019 are shown below each listed medication. Other Order Route Rate Dose Action Date HYDROmorphone (Dilaudid) 10 mcg/mL, BUpivacaine (Marcaine) 0.1% (0.1 mg/mL) (1/10%) in sodium chloride 0.9% 250 mL epidural Epidural 8 mL/hr 8 mL/hr Rate/Dose Change 04/01/2019 HYDROmorphone (DILAUDID) injection 0.2-0.4 mg Intravenous 0.4 mg Given 03/31/2019 Intravenous 0.2 mg Given 03/31/2019 Intravenous 0.4 mg Given 03/31/2019 Intravenous 0.4 mg Given 03/31/2019 Intravenous 0.2 mg Given 03/31/2019 Intravenous 0.4 mg Given 03/31/2019 Intravenous 0.4 mg Given 03/31/2019 HYDROmorphone (DILAUDID) injection Intravenous 0.4 mg Given 03/31/2019 HYDROmorphone (Dilaudid) 10 mcg/mL, BUpivacaine (Marcaine) 0.1% (0.1 mg/mL) (1/10%) in sodium chloride 0.9% 250 mL epidural Epidural 6 mL/hr 6 mL/hr New Bag 03/31/2019 HYDROmorphone (DILAUDID) injection 0.2 mg Epidural 0.2 mg Given 03/31/2019 fentaNYL (PF) 50mcg/mL injection Intravenous 25 mcg Given 03/31/2019 Intravenous 25 mcg Given 03/31/2019 Intravenous 25 mcg Given 03/31/2019 Intravenous 25 mcg Given 03/31/2019 DH AN APS EPIDURAL ROUNDIN04/01/2019 9:12 AM Average Numeric Rating Pain Score (0-10):: 4 Post-Op Day:: 1 Epidural Day:: 2 Epidural Infusion (solution):: HYDROmorphone 10 mcg/mL and BUpivacaine 0.1% Epidural Infusion Rate (mL/hr): 6 PCEA Dose (mL): 3 Out of Bed: No Ambulation: No Able to Use Incentive Spirometry: Yes Escalation of Care: No Tolerating Regular Diet: No Epidural Catheter Removed (Intact unless noted in Comments): No Notes/Plan: Walker is feeling ok this morning. She states that her pain is a zero at rest, but increases significantly with any movement. She has received 23 of 25 PCEA demand doses postop. Walker denies any significant numbness, tingling, itching, or nausea at this time. She has an NG tube in place and remains NPO. She has not passed flatus yet. She is planning on getting up to ambulate later this morning. Her epidural insertion site is clean and dry without signs of infection. Plan: Epidural infusion rate increased to 8mL/hr and PCEA increased to 4mL to help improve pain control in preparation for activity. Recommend scheduling Ofirmev and NSAID, when appropriate. Recommend adding 3 Lidoderm Patches to regimen (Patches can be applied anywhere on the body - Goal is to establish blood level). 15:18 Addendum: Patient continues to have pain that she states is not well-controlled. She currently rates her pain5/10. Dermatomes assessed with ice. Patient seems to have patchy coverage, especially on the left side. She believes it might be gas pain. Walker denies any incisional pain. Epidural infusion rate increased to 10mL/hr and PCEA increased to 5mL q 20 minutes in hopes of optomizing dermatome coverage. Recommend adding Tizanidine 2mg PO q 8 hours to medication regimen, when appropriate. If pain control continues to be an issue, APS will consider increasing solution concentration to 1/8th% Bupivacaine with 10mcg/mL Hydromorphone and decreasing infusion settings to 8mL/hr with a PCEA of 4mL q 20 minutes. IRACHEL, RN, have performed the documentation for this encounter in the presence of andacting as a scribe for Dr. Javier Duran. APS Nurse: Rachel Bansal, RN Resident:: Di Avalos MD Attending Physician:: Javier Duran MD I performed the above scribed service and agree with the accuracy of the note. * Jamal Jimenez MD - 03/31/2019 11:19 PM EST Vascular Surgery Post Op Check Walker Farmer is a 54 y.o. female s/p aortobifemoral bypass Subjective: No nausea/vomiting, chest pain, SOB, pain well controlled, offers no complaints. Objective: Temp: [37.2 ??C (99 ??F)-37.8 ??C (100 ??F)] Heart Rate: [80-101] Resp: [11-28] BP: (123-157)/(65-83) SpO2: [91 %-100 %] Heart Rate from SpO2: [79 bpm-101 bpm] I/O last 3 completed shifts: In: 3038.6 [I.V.:3000; Other:38.6] Out: 1650 [Urine:650; Blood:1000] I/O this shift: In: 0 Out: 1550 [Urine:1550] UOP since OR: 1550cc in barker Physical Exam General: resting comfortably, no acute distress HEENT: normocephalic, atraumatic CVS: regular rate Pulm: non-labored breathing on 2L NC Abd: soft, non tender, non distended. Incision dressing with minimal spotting. Neuro: no focal deficits, moving all extremities RLE Groin dressing c/d/i, no ecchymosis. no evidence of hematoma Able to wiggle toes and plantar/dorsiflex at ankle Sensation intact to light touch 2+DP and dopplerable PT Skin warm and well perfused LLE Groin dressing c/d/i, no ecchymosis. no evidence of hematoma Able to wiggle toes and plantar/dorsiflex at ankle Sensation intact to light touch 1+DP and dopplerable PT signal present Skin warm and well perfused Assessment/Plan: Walker Farmer is a 54 y.o. female s/p aortobifemoral bypass currently in stable condition and recovering well. The incision is c/d/i with evidence of hematoma. Hgb postop 10.9. - pain well controlled - hemodynamically stable - UOP adequate Jamal Jimenez MD * Rachel Barker RN - 03/31/2019 9:41 PM EST Hand off report received from SADAF Best. SBP >150 PRN's given x2 with good effect. Epidural site CDI, pt instructed on PCEA use and returned demonstration. Epidural level tested with ice. PT and DP pulses 1+ and palpable, no numbness or tingling noted. Abdominal incsion Intact, scant drainage noted area marked. B/L groin sites DCI. Pt rating pain 9/10, medicated and pain reassessed appropriately. Labs drawn and sent. Hand off report to RN * Alba Zazueta RN - 03/31/2019 6:36 PM EST 1812 - Pt arrives to PACU from OR via bed, monitors on with alarms. Pt sleepy but arousable. NGT mj Martines to gravity. Dressings C/D/I. +1Palp pulses bilat. Report received and care assumed. 1843 - Labs drawn and sent as ordered. 1854 - Report and handoff to SADAF Ramos * Fela Rosen RN - 03/03/2019 4:16 PM EDT Patient Name: Walker Farmer Patient Age: 54 y.o. Birthdate: 1965 Admit date: (Not on file) Attending Physician: Judy Álvarez MD The blood bank called PAT to share that pt's T&S sample will outdate on the day of surgery (03-14) at midnight. The [facility] clinic was called and spoke to nurse who states Dr. Álvarez is fine with that. documented in this encounter H&P Notes * Skye Vasquez MD - 03/30/2019 11:55 PM EST Vascular Surgery History and Physical CC: elective aortobifemoral bypass for aortoiliac occlusive disease HPI: Walker Farmer is a 54 y.o. female with a hx of PAD (AIOD) and is s/p distal infrarenal aortic stent graft and bilateral iliac stenting in 2018 with left femoral cutdown. She was initially improvedbut in the last few months she developed recurrent LLE claudication with decline in SHA from 0.9 to0.5. She presents today for elective aortobifemoral bypass. Since last clinic visit patient denies, fever, chills, CP, sob, and lower extremity symptoms stable. RoS: 10 point review of systems negative except as noted above. Past Medical / Surgical History: Patient Active Problem List Diagnosis ??? PAD (peripheral artery disease) ??? Drinks beer Overview Note: As of Jan 2019, patient reports 5 beers per night with plans to taper off before vascular surgery in February. ??? Depression ??? Gout ??? Aortoiliac occlusive disease ??? Hypertension ??? Intermittent claudication ??? History of renal stent Social History Socioeconomic History ??? Marital status: Spouse name: Not on file ??? Number of children: Not on file ??? Years of education: Not on file ??? Highest education level: Not on file Occupational History ??? Not on file Social Needs ??? Financial resource strain: Not on file ??? Food insecurity: Worry: Not on file Inability: Not on file ??? Transportation needs: Medical: Not on file Non-medical: Not on file Tobacco Use ??? Smoking status: Former Smoker Packs/day: 0.25 Years: 0.00 Pack years: 0.00 Types: Cigarettes Last attempt to quit: 2019 Years since quittin.2 ??? Smokeless tobacco: Never Used Substance and Sexual Activity ??? Alcohol use: Yes Alcohol/week: 35.0 standard drinks Types: 35 Cans of beer per week Comment: per pt, was asked to stop between now and surgery 03/07 ??? Drug use: Yes Frequency: 3.0 times per week Types: Marijuana ??? Sexual activity: Not on file Lifestyle ??? Physical activity: Days per week: Not on file Minutes per session: Not on file ??? Stress: Not on file Relationships ??? Social connections: Talks on phone: Not on file Gets together: Not on file Attends yazidism service: Not on file Active member of club or organization: Not on file Attends meetings of clubs or organizations: Not on file Relationship status: Not on file ??? Intimate partner violence: Fear of current or ex partner: Not on file Emotionally abused: Not on file Physically abused: Not on file Forced sexual activity: Not on file Other Topics Concern ??? Not on file Social History Narrative ??? Not on file No family history on file. Medications: No current facility-administered medications for this encounter. Current Outpatient Medications Medication Sig Dispense Refill ??? atorvastatin (LIPITOR) 40 mg Tablet Take [...] (E.C.) Take 81 mg by mouth daily. Allergies: Effexor [venlafaxine] and Trazodone Physical Exam: Gen: NAD, alert and oriented x3 Cardiac: Regular Pulm: Normal work of breathing on room air GI: Soft, NT ND Vascular Exam: ? R L Carotid 2/2 bruit (n) 2/2 bruit (n) Radial 2/2 2/2 Femoral 2/2 0/2 DP 2/2 0/2 PT 2/2 0/2 Imaging: SHA 12/03/18: ?? Findings: ?? Right ?Pressure (mm Hg) ?? SHA ??Waveform ?TBI ?? Brachial Artery ?195 ? Dorsalis Pedis (Ankle) Artery ?206 ? 1.04 ??Triphasic ? Posterior Tibial (Ankle) Artery ??208 ? 1.05 ??Triphasic ? Great Toe ?137 ?0.69 ? Left ? Pressure (mm Hg) ?? SHA ??Waveform ? TBI ?? Brachial Artery ?199 ? Dorsalis Pedis (Ankle) Artery ?109 ? 0.55 ??Monophasic ? Posterior Tibial (Ankle) Artery ??112 ?0.56 ??Monophasic ? Great Toe ?87 ?0.44 ? Interpretation: ?? RIGHT: No significant lower extremity arterial occlusive disease. Normal ankle/brachial pressure ratios, ankle Doppler waveforms and toe pressures. ?? LEFT: Moderate lower extremity arterial occlusive disease. Deterioration compared to previous exam. ? Previous ABIs with change from previous value: ?? Date ?RIGHT DP ?? RIGHT PT ?? RT GR TOE ??RT Sec TOE ??0.63 ? 0.57 ? ---- ? ---- ??0.99(+.36) 1.06(+.49) ---- ? ---- ??0.99( .00) 0.98(-.08) ---- ? ---- ??1.00(+.01) 1.03(+.05) ---- ? ---- Current ? 1.04(+.04) 1.05(+.02) 0.69 ? ---- ? Date ?LEFT DP ?LEFT PT ?LT GR TOE LT Sec TOE ??0.62 ? 0.56 ? ---- ? ---- ??0.98(+.36) 1.00(+.44) ---- ? ---- ??1.01(+.03) 0.99(-.01) ---- ? ---- ??0.94(-.07) 0.94(-.05) ---- ? ---- Current ? 0.55(-.39) 0.56(-.38) 0.44 ? ---- ? CTA 01/17/19: images reviewed. Patent infrarenal and R common iliac stent graft. The L common iliac stent graft appears narrowed in proximal region and is occluded. Iliac reconstitutes via the hypogastric artery. ?? Assessment and Plan: 54 y.o. female with LLE claudication will undergo aortobifemoral bypass for aortoiliac occlusive disease. Skye Vasquez MD, MS Vascular surgery fellow Service pager [phone] documented in this encounter Miscellaneous Notes * Plan of Care - Roxie Barroso RN - 04/05/2019 5:00 AM EST Problem: Skin Integrity Impairment, Risk/Actual (Adult) Intervention: Prevent/Manage Excess Moisture 04/04/191938 Skin Interventions Skin Protection adhesive use limited;transparent dressing maintained Intervention: Prevent/Minimize Sheer/Friction Injuries 04/04/191938 Positioning Positioning/Transfer Devices pillows Skin Interventions Pressure Reduction Devices pressure-redistributing mattress utilized Pressure Reduction Techniques frequent weight shift encouraged;pressure points protected;heels elevated off bed Goal: Identify Related Risk Factors and Signs and Symptoms Related risk factors and signs and symptoms are identified upon initiation of Human Response Clinical Practice Guideline (CPG) Outcome: Ongoing (Interventions Implemented as Appropriate) 04/03/19 0256 Skin Integrity Impairment, Risk/Actual Skin Integrity Impairment, Risk/Actual: Related Risk Factors surgery/procedure;infection/disease process;fluid/nutrition status Goal: Skin Integrity/Wound Healing Patient will demonstrate the desired outcomes by discharge/transition of care. Outcome: Ongoing (Interventions Implemented as Appropriate) 04/03/19 0256 Skin Integrity Impairment, Risk/Actual (Adult) Skin Integrity/Wound Healing making progress toward outcome Problem: Patient Care Overview Goal: Plan of Care Review Outcome: Ongoing (Interventions Implemented as Appropriate) 04/04/19 0400 04/04/19 193 Plan of Care Review Progress progress toward functional goals as expected -- Coping/Psychosocial Plan Of Care Reviewed With -- patient OUTCOME EVALUATION NOTE: OUTCOME SUMMARY: Pt had a good evening, rested well, no acute events. VSS, RA, axox4, afebrile. Received 1x prn labetalol for SBp >150 with good effect .Adequate UOP. ambulates frequently with assistance/FWW, walked unit at beginning of shift, tolerated well. No BM yet, passing flatus, bowel sounds present throughout. Incisions dry, no drainage, pink, abram, c/o tenderness at incision sites. Pain managed with scheduled acetaminophen and 5mg oxycodone as ordered. PLAN MOVING FORWARD: Advance diet as ordered and monitor tolerance to feeding. Continue to manage pain, encourage ambulation, and promote bowel care. INDIVIDUALIZED FALL PREVENTION INTERVENTIONS: Patient-specific fall risk factors per assessment: [current deficits]: Recent history of falls, pulse oximetry, weakness, recent abdominal surgery Assistance [level of assistance required for transfers and ambulation]: 1 assist/ stand-by, FWW Supervision [direct monitoring required during toileting and ADLs]: Hands on Surveillance [continuous indirect monitoring]: Purposeful rounding, bed alarms, pulse oximetry Patient-specific fall prevention interventions for sensory deficits provided, if applicable: no CPG GOAL OUTCOME EVALUATION: ongoing Goal: Individualization & Mutuality Outcome: Ongoing (Interventions Implemented as Appropriate) 04/03/19 1354 04/03/192054 Individualization Patient Specific Preferences None at this time. -- Patient Specific Goals Go home. -- Mutuality/Individual Preferences What Anxieties, Fears or Concerns Do You Have About Your Health or Care? -- None What Questions Do You Have About Your Health or Care? -- None What Information Would Help Us Give You More Personalized Care? -- None Goal: Fall Prevention-Safe Patient Handling Outcome: Ongoing (Interventions Implemented as Appropriate) 04/03/1925504/04/19193804/04/191999 Daily Care Interventions Self-Care Promotion independence encouraged -- -- Restraint Interventions Safety Promotion/Fall Prevention -- fall prevention program maintained;nonskid shoes/slippers when out of bed;safety round/check completed;activity supervised -- Activity Activity Type -- -- -- Activity Assistance Provided -- -- -- Assistive Device Utilized -- -- front-wheel walker Positioning Body Position -- independent -- Dumont Fall Risk History of Falling -- 25 -- Secondary Diagnosis -- 15 -- Ambulatory Aids -- 15 -- Intravenous Therapy/Heparin/Saline Lock -- 20 -- Gait/Transferring -- 10 -- Mental Status -- 0 -- Score -- 85 -- OTHER Dumont Fall Risk -- High -- 04/05/19 0300 Daily Care Interventions Self-Care Promotion -- Restraint Interventions Safety Promotion/Fall Prevention -- Activity Activity Type ambulated to bathroom Activity Assistance Provided assistance, stand-by Assistive Device Utilized -- Positioning Body Position -- Dumont Fall Risk History of Falling -- Secondary Diagnosis -- Ambulatory Aids -- Intravenous Therapy/Heparin/Saline Lock -- Gait/Transferring -- Mental Status -- Score -- OTHER Dumont Fall Risk -- Goal: Infection Control Outcome: Ongoing (Interventions Implemented as Appropriate) 04/04/191938 Safety Interventions Isolation Precautions standard precautions maintained Infection Prevention single patient room provided;rest/sleep promoted Coping Strategies Supportive Measures active listening utilized;self-care encouraged;goal setting facilitated;decision-making supported Goal: Discharge Needs Assessment Outcome: Ongoing (Interventions Implemented as Appropriate) 04/03/1925504/03/19 135 Discharge Needs Assessment Concerns To Be Addressed -- no discharge needs identified Readmission Within The Last 30 Days -- no previous admission in last 30 days Equipment Needed After Discharge none -- Discharge Disposition still a patient -- Current Health Anticipated Changes Related to Illness none -- Activity/Self Care Review of Systems Equipment Currently Used at Home none -- Living Environment Transportation Available family or friend will provide -- Goal: Interdisciplinary Rounds/Family Conf Outcome: Ongoing (Interventions Implemented as Appropriate) 04/04/19 0359 Interdisciplinary Rounds/Family Conf Participants nursing;patient * Plan of Care - Oskar Carney - 04/04/2019 2:39 PM EST Physical Therapy Note Treatment Number PT: 2 Patient profile: 54 y.o. female with history of recurrent LLE claudication despite infrarenal aortic stent graft and bilateral iliac stenting now Post-Op aortobifemoral bypass. Precautions/Special Considerations: midline incision, bilat groin incisions Mobility and Positioning Recommendations: ?? Pt capable of indep amb using walker, needing assist currenlty only for equipment. ?? Please encourage up to chair for meal times as able. Subjective: I have a walker in case I need it I don;t think I will I have plenty of help I'm nottoo worried Objective: Patient seen for physical therapy and demonstrated the following: Pain: minimal, had not used epidural button all morning Vital Signs: stable Bed Mobility: Supine to Sit: indep via log roll, bed flat Sit to Supine: same Transfers: Sit to Stand: indep Stand to Sit: indep Gait: Distance: 300 ft Device used: walker, minimally relying on it, prefers it for comfort/confidence and has one at hometo use as she chooses. Level of assist: indep Balance: Sitting Static: good Sitting Dynamic: good Standing Static: good Standing Dynamic / Gait: good Assessment: Walker Farmer was seen today for physical therapy treatment session for continuation of POC. Presents with post op pain but is essentially indep and has met PT goals sufficiently for d/c tohome with help from family and significant other. Discharge Recommendations: Based on the current findings, Anticipated Discharge Disposition: home with assist, home when medically ready for hospital discharge. Consult Recommendations: No other consults recommended at this time. Equipment needs: Patient has all necessary equipment Goals: To be achieved by 04/04/19: 1. Pt. to perform bed mobility independently, bed flat 2. Pt. to perform all transfers independently . 3. Pt. to ambulate 150 feet independently . 4. Pt. to negotiate 3 step/stairs using one rail independently. Plan: Therapy Frequency: monitor in case needs arise, otherwise d/c to home when MR, no PT needs. Time IN / OUT: 2508-0941 Total Evaluation Minutes, Physical Therapy: 20(1 TA) Oskar Carney DPKika Pager: [phone] Physical Therapy Inpatient Rehabilitation Department * Plan of Care - Lidia Meléndez RN - 04/04/2019 1:45 PM EST OUTCOME EVALUATION NOTE: OUTCOME SUMMARY: Walker had a good day. A/OX4; VSS; afebrile on RA. Pt able to ambulate in arevalo w/ PT X3. Pain well controlled w/ PCEA and scheduled meds. PCEA settings turned down by APS; will DC later today. Noon heparin held. Voiding adequately; clear yellow. No BM; passing flatus. Suppository given. Incisions CDI.Pt tolerating clear liquids. Will continue to monitor. PLAN MOVING FORWARD: Encourage ambulation Manage pain adequately Bowel medications Encourage fluids INDIVIDUALIZED FALL PREVENTION INTERVENTIONS: Patient-specific fall risk factors per assessment: [current deficits]: Lines, pain w/ movement, general weakness. Assistance [level of assistance required for transfers and ambulation]: SBA w/ FWW Supervision [direct monitoring required during toileting and ADLs]: Arms reach Surveillance [continuous indirect monitoring]: Purposeful hourly rounding, call mcdermott in reach, belongings in reach. Patient-specific fall prevention interventions for sensory deficits provided, if applicable: [X] N/A CPG GOAL OUTCOME EVALUATION: Ongoing * Plan of Care - lCaribel Dias RN - 04/04/2019 4:02 AM EST Problem: Patient Care Overview Goal: Plan of Care Review Outcome: Ongoing (Interventions Implemented as Appropriate) 04/04/19 0400 Plan of Care Review Progress progress toward functional goals as expected Coping/Psychosocial Plan Of Care Reviewed With patient OUTCOME EVALUATION NOTE: OUTCOME SUMMARY: Walker slept between care. A&O x4, VSS on RA. Pain controlled with scheduled meds and PCEA. Incisions MARY, abram intact, no drainage. BLE pulses +2 palpable. Pt tolerating sips & chips, small PO intake overnight. Adequate UOP. Pt reports passing gas this morning. PLAN MOVING FORWARD: IS, pain management, encourage mobility MIVF INDIVIDUALIZED FALL PREVENTION INTERVENTIONS: Patient-specific fall risk factors per assessment: [current deficits]: Mobility aid, tethering devices Assistance [level of assistance required for transfers and ambulation]: SBA Supervision [direct monitoring required during toileting and ADLs]: Arms reach Surveillance [continuous indirect monitoring]: Purposeful rounding, call mcdermott within reach Patient-specific fall prevention interventions for sensory deficits provided, if applicable: Yes, lighting adjusted, nonskid socks when OOB CPG GOAL OUTCOME EVALUATION: Ongoing * Consult Note - Buck Watts RN - 04/03/2019 5:03 PM EST TOBACCO DEPENDENCE TREATMENT NOTE 04/03/2019 Name: Walker Farmer Date of : 1965 Reason for visit: Walker Farmer is a current everyday smoker and was referred for smoking cessation counseling. The following information has been reviewed with the patient: Social History: Marital status: Single, lives with SO ETOH: Daily 5-6 beers Drug use: Occasional Marijuana, 3-4 X week Caffeine: 1-2 cups coffee daily Smoking history: Type of tobacco used: ( ) Smokeless tobacco ( ) e-cigarette ( X) Cigarettes Brand currently smoking: [place] [employer] Current amount: 0.25 ppd Age initiated: 17 Years smoked: 38 Most smoked: 1 ppd Previous quit attempts and methods: Nicotine patches Most recent quit attempt: December 2017-August 2018. She quit in preparation for surgery and, in August, once her symptoms returned she became distressed and began smoking again. Are there other smokers in the home: No. Apartment is smoke-free. Boyfriend does not smoke Are there children in the home: No What will be different this time: I can't go through this again. 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 I can do it again. NICOTINE DEPENDENCE 0 Points 1Points 2 Points 3 Points Score 1.How soon after you wake do you smoke your first cigarette? After 60 minutes 31-60 minutes minutes 6-30 minutes Within 5 minutes 2 2. Do you find it difficult to refrain from smoking in places where it is forbidden ex [facility] No Yes 0 3. Which cigarette would you hate to give up ? All others The first one in the morning 1 4. How many cigarette do you smoke a day ? 10 or less 11-20 21-30 30 or more 0 Do you smoke more frequently during the first hour after waking than the rest of the day? No Yes 0 6. Do you smoke if you are so ill that you are in bed all day ? No Yes 0 Fagerstrom Score: 3 Classification: 0-2 Very low 3-4 Low 5 Moderate 6-7 High 8-10 Very high Stage of Change: Preparation Precontemplative: Contemplative: Preparation: Action: Maintenance: Assessment/Plan: Walker Farmer has a Fagerstrom Score of 3, indicating a low dependence on Nicotine. I reviewed the physiology of addiction as well as apparent health risks specific for her. I advised her that quitting smoking is one of the best things she can do for her health now and in the future.I discussed the options for treatment including NRT, Zyban and Chantix. I reviewed possible side effects of therapy. I stressed that medication alone is not optimum but used in conjunction with behavioral counseling will add to success for cessation. The patient decided that the best course of action for her would be NRT. She is currently wearing the 21 mg patch and denies cravings or urges to smoke. She reports that she has some additional patches at home. She has recently applied for [place] Medicaid. I reviewed the resources available through the [place] quit line and she has consented to a referral. I gave her one box of 21 mg patches and 1 box of 2 mg lozenges to bridge until insurance becomes effective or she receives products from the quit line. Instructions for NRT will be included in AVS. I reviewed several tips for helping with quitting including the 4D's, using straws cut the length of cigarettes, cinnamon sticks, flavored toothpicks, sugar free candy, etc. I encouraged her to make the vehicle a smoke-free zone, as well. She reports that she would like to begin attending AA with her boyfriend as she feels she needs to cut back on her drinking. I reviewed the AA 12-step Traditions and encouraged her to use these traditions to assist with her tobacco cessation, as well. She has also been provided with a [facility] Smoking Cessation packet and the contents have been reviewed with her. She has my card with my contact information and has been encouraged to call if she has additional q uestions or concerns. Referral to [place] quitline placed. The patient has been encouraged to follow-up with PCP and/or the outpatient Tobacco Manager Lan, Fanny Gibbs APRN, and GEOFFREY Colon, in [facility] clinic. Buck Watts, MSN, RN-, [facility] Tobacco Dairy Consultant [facility] Pager #[phone] * Plan of Care - Oskar Carney - 04/03/2019 3:13 PM EST Physical Therapy Evaluation Patient profile: Walker Farmer is a 54 y.o. female admitted on 03/31/[address] Judy Álvarez MD. Per notes, 54 y.o. female with history of recurrent LLE claudication despite infrarenal aortic stent graft and bilateral iliac stenting now 3 Days Post-Op aortobifemoral bypass Patient with the following active problems: Past Medical History: Diagnosis Date ??? Claudication ??? High blood pressure ??? Hypertension 01/08/2018 Past Surgical History: Procedure Laterality Date ??? CORONARY ANGIOPLASTY WITH STENT PLACEMENT march 05 2018 ??? PRO BYPASS GRAFT OTHR, AORTOBIFEMORAL N/A 03/31/2019 @BYPASS GRAFT, AORTOBIFEMORAL W\ SYNTHETIC CONDUIT (WRVU 32.98) performed by Judy Álvarez MD at [facility] MAIN OR ??? PRO PLACE INTRAVASCULAR STENT OPEN/PERCUTAN 1ST ARTERY N/A 03/05/2018 TRANSCATH PLACEMENT INTRAVASCULAR STENT, OPN/PERQ, INITIAL ARTERY, S&I (WRVU 9) performed by Yves Vegas MD at [facility] MAIN OR ? ? PRO REVSC OPEN/PERCUTANEOUS ILIAC ART W STNT & ANGIOP IPSI VSL Bilateral 03/05/2018 REVSC OPN\PRQ ILIAC ART W\STNT & ANGIOP EA IPSILATERAL VSL-ALEX (WRVU 4.25) performed by Yves Vegas MD at [facility] MAIN OR ? ? PRO REVSC OPEN/PERCUTANEOUS ILIAC ART W STNT PLMT&ANGIO PRECIOUS VSL UNILAT Bilateral 03/05/2018 REVSC OPN\PRQ ILIAC ART W\STNT PLMT & ANGIOP SAME VSL BILAT (WRVU 10) performed by Yves Vegas MD at [facility] MAIN OR Social History: Pt lives alone but has boyfriend who comes over several times a week and has supportive family as well. 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 Is normally indep but was having leg pain/numbness with anysignificant amount of walking. Has three steps w/rail to enter and then is all on one floor. Precautions/Special Considerations: midline incision, groin incisions bilat, epidural Mobility and Positioning Recommendations: ?? Pt. to utilize walker and one assist for ambulation and transfers with nursing. ?? Please encourage up to chair for meal times as able. ?? Pt encouraged to ambulate frequently with staff, getting into the bathroom for toileting and walking out in the arevalo >/= 3 times daily as able. Subjective: ???I just use the walker for a little confidence?? Objective: Pt seen for evaluation today. Pain: Moderate incision pain Vital Signs: Stable Mental Status: alert, oriented to person, place, and time Musculoskeletal: ROM: WFL Strength: WFL Bed Mobility: Supine to Sit: indep, log rolled, used rail and HOB was up slightly, to L side of bed Transfers: Sit to Stand: supervision Stand to Sit: supervision Gait: Distance: 300 feet Device used: front wheel walker (minimally using it, at times gestures with one hand while continuing to walk using one hand only on walker) Level of assist: Supervision for lines, could do so indep if no attachments Gait mechanics: slow, steady, no loss of balance Balance: Sitting Static: good Sitting Dynamic: good Standing Static: good Standing Dynamic / Gait: good Education: patient has been educated on Bed mobility, Role of therapy and Discharge planning and verbalizes understanding. Patient status, treatment, and mobility recommendations discussed with nursing. Assessment: Walker Farmer was seen today for physical therapy evaluation. Presents with post op pain which is impacting her functional mobility, gait and safety. The pt would benefit from skilled therapy services to address impairments/deficits, for pt/caregiver education, and to promote optimal condi tioning while admitted in the hospital. Discharge Recommendations: Based on the current findings, Anticipated Discharge Disposition: home with assist when medically ready for hospital discharge. Consult Recommendations: No other consults recommended at this time Equipment needs: No equipment necessary Goals: To be achieved by 04/04/19: 1. Pt. to perform bed mobility independently, bed flat 2. Pt. to perform all transfers independently . 3. Pt. to ambulate 150 feet independently . 4. Pt. to negotiate 3 step/stairs using one rail independently. Plan: Therapy Frequency: 1-3 more visits for therapy including bed mobility training, gait training, patient/family education, stair training and transfer training. Patient/family understand and agree with plan as stated above. 2017 PT Evaluation Code Rationale: ?? Diagnosis & Pertinent Co-Morbidities, personal factors, and present illness affecting Plan of Care: (see above); Additional personal factors or co- morbidities that impact plan: ?? Total # of Factors: 0 1-2 3+ x ?? Examination of body system impairments, functional limitations and behaviors, and/or participation restrictions. Addressing 1-2 elements Addressing 3 + elements x Addressing 4 + elements ?? Clinical presentation: See assessment above. Stable/Uncomplicated Evolving/Fluctuating Symptoms Unstable/Unpredictable x ?? Clinical decision making of moderate complexity based on pt's functional performance as outlinedin this evaluation. Time IN / OUT: 3054-6548 Total Evaluation Minutes, Physical Therapy: 24(Eval) Oskar Carney, PT Pager: [phone] Physical Therapy Inpatient Rehabilitation Department * Plan of Care - Lidia Meléndez RN - 04/03/2019 2:00 PM EST Problem: Patient Care Overview Goal: Plan of Care Review Outcome: Ongoing (Interventions Implemented as Appropriate) 04/03/19 0256 04/03/19 0900 Plan of Care Review Progress progress toward functional goals as expected -- Coping/Psychosocial Plan Of Care Reviewed With -- patient OUTCOME EVALUATION NOTE: OUTCOME SUMMARY: Walker had a good day. A/OX4; VSS; afebrile on RA. Pain well controlled w/ PCEA and scheduled meds. Neuro vascular checks benign. Pt able to ambulate in arevalo w/ PT. NGT DC'd per order. Diet advanced to Sips/chips. Tolerated well. Voiding adequate amounts in toilet. No BM this shift. Not yet passing flatus. Ambulation encouraged. PLAN MOVING FORWARD: Encourage ambulation Advance diet as tolerated Manage pain adequately INDIVIDUALIZED FALL PREVENTION INTERVENTIONS: Patient-specific fall risk factors per assessment: [current deficits]: Lines, drains, pain w/ movement. Assistance [level of assistance required for transfers and ambulation]: SBA w/ FWW Supervision [direct monitoring required during toileting and ADLs]: Arms reach Surveillance [continuous indirect monitoring]: Purposeful hourly rounding, call mcdermott in reach, belongings in reach. Patient-specific fall prevention interventions for sensory deficits provided, if applicable: [X] N/A CPG GOAL OUTCOME EVALUATION: Ongoing * Plan of Care - Rosina Mota RN - 04/03/2019 3:00 AM EST Problem: Skin Integrity Impairment, Risk/Actual (Adult) Goal: Identify Related Risk Factors and Signs and Symptoms Related risk factors and signs and symptoms are identified upon initiation of Human Response Clinical Practice Guideline (CPG) Outcome: Ongoing (Interventions Implemented as Appropriate) 04/03/19 0256 Skin Integrity Impairment, Risk/Actual Skin Integrity Impairment, Risk/Actual: Related Risk Factors surgery/procedure;infection/disease process;fluid/nutrition status OUTCOME EVALUATION NOTE: OUTCOME SUMMARY: Walker Farmer had a good night, appeared to be sleeping between care. A/Ox4, VSS, Afebrile. No acute events overnight. No signs or symptoms of distress, denies SOB, numbness or tingling. Remains NPO Pain managed adequately with Epidural, no deficits noted. Voiding adequate amounts, spontaneously. No BM overnight, denies flatus. NGT with very minimal output flushed q4. PLAN MOVING FORWARD: Continue to monitor as ordered Awaiting transfer to floor Manage pain adequately Advance diet as tolerated and encourage and promote good PO fluid and nutrition intake Encourage ambulation as tolerated Promote self care and independence INDIVIDUALIZED FALL PREVENTION INTERVENTIONS: Patient-specific fall risk factors per assessment: [current deficits]: Narcotics, Epidural, impulsive, tethering devices, Pain with movement/ambulation Assistance [level of assistance required for transfers and ambulation]: non-skid shoes/slippers, Standby assist Supervision [direct monitoring required during toileting and ADLs]: Eyes on Surveillance [continuous indirect monitoring]: Purposeful rounding, call mcdermott in reach Patient-specific fall prevention interventions for sensory deficits provided, if applicable: Yes: Light adjusted for task/safety CPG GOAL OUTCOME EVALUATION: Goal: Skin Integrity/Wound Healing Patient will demonstrate the desired outcomes by discharge/transition of care. Outcome: Ongoing (Interventions Implemented as Appropriate) 04/03/19255 Skin Integrity Impairment, Risk/Actual (Adult) Skin Integrity/Wound Healing making progress toward outcome Problem: Patient Care Overview Goal: Plan of Care Review Outcome: Ongoing (Interventions Implemented as Appropriate) 04/03/19255 Plan of Care Review Progress progress toward functional goals as expected Coping/Psychosocial Plan Of Care Reviewed With patient Goal: Fall Prevention-Safe Patient Handling Outcome: Ongoing (Interventions Implemented as Appropriate) 04/03/19255 Daily Care Interventions Self-Care Promotion independence encouraged Restraint Interventions Safety Promotion/Fall Prevention activity supervised;fall prevention program maintained;nonskid shoes/slippers when out of bed;safety round/check completed Activity Activity Type activity adjusted per tolerance Activity Assistance Provided assistance, stand-by Assistive Device Utilized front-wheel walker Positioning Body Position independent Dum[place] Fall Risk History of Falling 0 Secondary Diagnosis 15 Ambulatory Aids 15 Intravenous Therapy/Heparin/Saline Lock 20 Gait/Transferring 10 Mental Status 0 Score 60 OTHER [place] Fall Risk High Goal: Infection Control Outcome: Ongoing (Interventions Implemented as Appropriate) 04/03/19255 Safety Interventions Isolation Precautions standard precautions maintained Infection Prevention single patient room provided Coping Strategies Supportive Measures active listening utilized;positive reinforcement provided;self-care encouraged;self-reflection promoted;self-responsibility promoted Goal: Discharge Needs Assessment Outcome: Ongoing (Interventions Implemented as Appropriate) 04/03/19 025 Discharge Needs Assessment Concerns To Be Addressed no discharge needs identified Equipment Needed After Discharge none Discharge Disposition still a patient Current Health Anticipated Changes Related to Illness none Activity/Self Care Review of Systems Equipment Currently Used at Home none Living Environment Transportation Available family or friend will provide Goal: Interdisciplinary Rounds/Family Conf Outcome: Ongoing (Interventions Implemented as Appropriate) 04/03/19 025 Interdisciplinary Rounds/Family Conf Participants nursing;patient;physician * Plan of Care - Laura Lee RN - 04/02/2019 5:03 PM EST Problem: Patient Care Overview Goal: Plan of Care Review Outcome: Ongoing (Interventions Implemented as Appropriate) 04/01/19 1650 04/02/19 09 Plan of Care Review Progress progress toward functional goals as expected -- Coping/Psychosocial Plan Of Care Reviewed With -- patient OUTCOME EVALUATION NOTE: OUTCOME SUMMARY: --pt up and walking around the unit today with 1 assist --epidural remains the same, good pain control --NGT in place putting out small amount of brown liquid, flushing q4 hours. --Barker removed at 0645, pt voiding adequately. -downgraded to floor status PLAN MOVING FORWARD: --encourage ambulation, monitor voiding INDIVIDUALIZED FALL PREVENTION INTERVENTIONS: Patient-specific fall risk factors per assessment: [current deficits]: tethering devices, epidural,opiates, assistive device Assistance [level of assistance required for transfers and ambulation]: 1 assist with walker Supervision [direct monitoring required during toileting and ADLs]: Hands on Surveillance [continuous indirect monitoring]: Hourly rounding, call mcdermott within reach at all times, masimo Patient-specific fall prevention interventions for sensory deficits provided, if applicable: [X] N/A CPG GOAL OUTCOME EVALUATION: Goal: Fall Prevention-Safe Patient Handling Outcome: Ongoing (Interventions Implemented as Appropriate) 04/02/19 0900 04/02/19 1429 Daily Care Interventions Self-Care Promotion independence encouraged -- [place] Fall Risk History of Falling 0 -- Secondary Diagnosis 15 -- Ambulatory Aids 15 -- Intravenous Therapy/Heparin/Saline Lock 20 -- Gait/Transferring 10 -- Mental Status 0 -- Score 60 -- OTHER [place] Fall Risk Med -- Restraint Interventions Safety Promotion/Fall Prevention activity supervised;nonskid shoes/slippers when out of bed;safety round/check completed -- Positioning Body Position independent -- Activity Activity Type -- ambulated in arevalo Activity Assistance Provided -- assistance, 1 person Assistive Device Utilized -- front-wheel walker Goal: Infection Control Outcome: Ongoing (Interventions Implemented as Appropriate) 04/02/19 0900 Safety Interventions Isolation Precautions standard precautions maintained Infection Prevention barrier precautions utilized;environmental surveillance performed;single patient room provided;rest/sleep promoted Coping Strategies Supportive Measures active listening utilized;self-care encouraged Goal: Discharge Needs Assessment Outcome: Ongoing (Interventions Implemented as Appropriate) 04/02/19 033 Discharge Needs Assessment Concerns To Be Addressed no discharge needs identified Equipment Needed After Discharge none Discharge Disposition still a patient Current Health Anticipated Changes Related to Illness none Activity/Self Care Review of Systems Equipment Currently Used at Home none Living Environment Transportation Available family or friend will provide Goal: Interdisciplinary Rounds/Family Conf Outcome: Ongoing (Interventions Implemented as Appropriate) 04/02/19337 Interdisciplinary Rounds/Family Conf Participants nursing;pharmacy;patient;physician * Plan of Care - Rosina Mota RN - 04/02/2019 3:41 AM EST Problem: Skin Integrity Impairment, Risk/Actual (Adult) Goal: Identify Related Risk Factors and Signs and Symptoms Related risk factors and signs and symptoms are identified upon initiation of Human Response Clinical Practice Guideline (CPG) Outcome: Ongoing (Interventions Implemented as Appropriate) 04/02/19337 Skin Integrity Impairment, Risk/Actual Skin Integrity Impairment, Risk/Actual: Related Risk Factors infection/disease process;fluid/nutrition status;surgery/procedure Goal: Skin Integrity/Wound Healing Patient will demonstrate the desired outcomes by discharge/transition of care. Outcome: Ongoing (Interventions Implemented as Appropriate) 04/02/19337 Skin Integrity Impairment, Risk/Actual (Adult) Skin Integrity/Wound Healing making progress toward outcome Problem: Patient Care Overview Goal: Plan of Care Review Outcome: Ongoing (Interventions Implemented as Appropriate) 11/12164904/01/192129 Plan of Care Review Progress progress toward functional goals as expected -- Coping/Psychosocial Plan Of Care Reviewed With -- patient OUTCOME EVALUATION NOTE: OUTCOME SUMMARY: Walker Farmer had a good night, appeared to be sleeping between clustered care. Remains NPO. A/Ox4, VSS, Afebrile. No acute events overnight. No signs or symptoms of distress, denies SOB, CP and numbness or tingling. Remains NPO. Pain managed adequately with scheduled meds and epidural, No deficits noted, PT denies sensory deficits. Nubain administered 1x for itching. Voiding adequate amounts, barker in place. No BM this shift, PT denies passing flatus. NGT in place with minimal drainage. Midline with dried drainage, area marked, Bilat groin incisions with gauze soft and no hematoma. PLAN MOVING FORWARD: Continue to monitor as ordered Manage pain adequately Consider barker removal Consider NGT clamp trial Encourage ambulation as tolerated Promote self care and independence Encourage IS use INDIVIDUALIZED FALL PREVENTION INTERVENTIONS: Patient-specific fall risk factors per assessment: [current deficits]: Narcotics, History s, of fall, Epidural, needs assistance getting out of bed or chair, Pain with movement/ambulation Assistance [level of assistance required for transfers and ambulation]: non-skid shoes/slippers, 1 person assist Supervision [direct monitoring required during toileting and ADLs]: Eyes on Surveillance [continuous indirect monitoring]: Purposeful rounding, call mcdermott in reach Patient-specific fall prevention interventions for sensory deficits provided, if applicable: Yes Light adjusted for task/safety CPG GOAL OUTCOME EVALUATION: Goal: Fall Prevention-Safe Patient Handling Outcome: Ongoing (Interventions Implemented as Appropriate) 04/01/19212904/02/19 0010 Daily Care Interventions Self-Care Promotion -- independence encouraged Dum[place] Fall Risk History of Falling 0 -- Secondary Diagnosis 15 -- Ambulatory Aids 0 -- Intravenous Therapy/Heparin/Saline Lock 20 -- Gait/Transferring 0 -- Mental Status 0 -- Score 35 -- OTHER [place] Fall Risk Med -- Restraint Interventions Safety Promotion/Fall Prevention -- activity supervised;nonskid shoes/slippers when out of bed;safety round/check completed Positioning Body Position -- independent Activity Activity Type -- activity adjusted per tolerance Activity Assistance Provided -- assistance, 1 person Goal: Infection Control Outcome: Ongoing (Interventions Implemented as Appropriate) 04/01/19 2130 04/02/19 0010 04/02/19337 Safety Interventions Isolation Precautions -- -- standard precautions maintained Infection Prevention -- single patient room provided;rest/sleep promoted -- Coping Strategies Supportive Measures active listening utilized;self-care encouraged;self- responsibility promoted;self-reflection promoted;verbalization of feelings encouraged;positive reinforcement provided -- -- Goal: Discharge Needs Assessment Outcome: Ongoing (Interventions Implemented as Appropriate) 04/02/19337 Discharge Needs Assessment Concerns To Be Addressed no discharge needs identified Equipment Needed After Discharge none Discharge Disposition still a patient Current Health Anticipated Changes Related to Illness none Activity/Self Care Review of Systems Equipment Currently Used at Home none Living Environment Transportation Available family or friend will provide Goal: Interdisciplinary Rounds/Family Conf Outcome: Ongoing (Interventions Implemented as Appropriate) 04/02/19337 Interdisciplinary Rounds/Family Conf Participants nursing;pharmacy;patient;physician * Plan of Care - Gisselle Chapin RN - 04/01/2019 5:00 PM EST Problem: Patient Care Overview Goal: Plan of Care Review Outcome: Ongoing (Interventions Implemented as Appropriate) 04/01/19 0800 04/01/19 1650 Plan of Care Review Progress -- progress toward functional goals as expected Coping/Psychosocial Plan Of Care Reviewed With patient -- OUTCOME EVALUATION NOTE: OUTCOME SUMMARY: Patient had a good day. Bedrest lifted, up to chair this morning, walked in hallway with 1 assist with FWW. Two runs of potassium, one run of magnesium given this morning. Adequate urine output. 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 Will continue to monitor. PLAN MOVING FORWARD: Plan to downgrade tomorrow with an anticipated discharge of early next week. INDIVIDUALIZED FALL PREVENTION INTERVENTIONS: Patient-specific fall risk factors per assessment: [current deficits]: IV lines, NG tube, epidural., Assistance [level of assistance required for transfers and ambulation]: 1 assist with FWW Supervision [direct monitoring required during toileting and ADLs]: Hands on Surveillance [continuous indirect monitoring]: Hourly monitoring, tele monitoring, room near nursesstation. Patient-specific fall prevention interventions for sensory deficits provided, if applicable: [X] No CPG GOAL OUTCOME EVALUATION: Goal: Fall Prevention-Safe Patient Handling Outcome: Ongoing (Interventions Implemented as Appropriate) 04/01/19 0600 04/01/19 0804/01/19 1600 Daily Care Interventions Self-Care Promotion -- -- -- Dum[place] Fall Risk History of Falling -- 0 -- Secondary Diagnosis -- 15 -- Ambulatory Aids -- 0 -- Intravenous Therapy/Heparin/Saline Lock -- 20 -- Gait/Transferring -- 0 -- Mental Status -- 0 -- Score -- 35 -- OTHER [place] Fall Risk -- Med -- Restraint Interventions Safety Promotion/Fall Prevention -- -- safety round/check completed Positioning Body Position -- -- up in chair Activity Activity Type -- activity adjusted per tolerance -- Activity Assistance Provided assistance, 1 person -- -- 04/01/19 1650 Daily Care Interventions Self-Care Promotion independence encouraged Dum[place] Fall Risk History of Falling -- Secondary Diagnosis -- Ambulatory Aids -- Intravenous Therapy/Heparin/Saline Lock -- Gait/Transferring -- Mental Status -- Score -- OTHER [place] Fall Risk -- Restraint Interventions Safety Promotion/Fall Prevention -- Positioning Body Position -- Activity Activity Type -- Activity Assistance Provided -- Goal: Infection Control Outcome: Ongoing (Interventions Implemented as Appropriate) 04/01/19 0804/01/19 1600 Safety Interventions Isolation Precautions -- standard precautions maintained Infection Prevention -- rest/sleep promoted;single patient room provided Coping Strategies Supportive Measures active listening utilized;self-care encouraged;self- reflection promoted -- Goal: Discharge Needs Assessment Outcome: Ongoing (Interventions Implemented as Appropriate) 04/01/19 165 Discharge Needs Assessment Concerns To Be Addressed no discharge needs identified Equipment Needed After Discharge none Current Health Anticipated Changes Related to Illness none Goal: Interdisciplinary Rounds/Family Conf Outcome: Ongoing (Interventions Implemented as Appropriate) 04/01/19 1650 Interdisciplinary Rounds/Family Conf Participants physician;patient;pharmacy;nursing;social work case manager;family;dietitian/nutrition services * Initial Assessments - Leah Chappell RN - 04/01/2019 2:57 PM EST Office of Care Management Initial Assessment Leah Chappell RN reviewed record and discussed patient with Care Team. Source of Information: Patient and chart Introduced self/reviewed role; services accepted. Reason for Hospitalization: elective aortobifemoral bypass for aortoiliac occlusive disease Past Medical History: Diagnosis Date ??? Claudication ??? High blood pressure ??? 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 Social & Family Supports/Community Resources: Good support system with boyfriend, parents and many friends. Behavioral Health History:None on file Substance Use/Abuse: Has been drinking 5-8 alcoholic drinks per day and has smoked for many years. Is attempting to quit both cigarettes and alcohol with support of boyfriend and friends. Other Pertinent/Service Specific Information: None Health/Prescription Coverage: Primary Insurance: N/A Secondary Insurance: N/A Prescription Coverage: None Preferred Pharmacy: None Other: Has applied for financial assistance from [facility]. Also now qualifies for food stamps and fuel assistance. Primary Care Provider: Beena Wilkes APRN [phone] Patient/Caregiver Goals of Treatment: to return home when medically ready for discharge. Potential Needs for Transition of Care: Rehab/SNF: no Home Health: TBD DME: no Dialysis: No Community Resources: No Transportation: Boyfriend Other:None Anticipated Barriers to Discharge/Special Considerations: None. Plan: A member of the Care Management team will continue to monitor progress, follow for continuityof care and assist with transition of care planning. Leah Chappell RN * Consult Note - Buck Watts RN - 04/01/2019 2:11 PM EST TOBACCO DEPENDENCE TREATMENT NOTE DATE: 04/01/2019 NAME: Walker Farmer : 1965 Attempted to meet with patient on two separate occasions today and she was unavailable for both attempts. I left the [facility] at the bedside. I will be out of hospital tomorrow and willfollow-up with patient on , the . Buck Watts, MSN, RN-[facility] Tobacco Dairy Consultant [facility] Pager #[phone] * Plan of Care - Jenna Licea RN - 04/01/2019 6:01 AM EST Problem: Skin Integrity Impairment, Risk/Actual (Adult) Goal: Identify Related Risk Factors and Signs and Symptoms Related risk factors and signs and symptoms are identified upon initiation of Human Response Clinical Practice Guideline (CPG) 04/01/19 0548 Skin Integrity Impairment, Risk/Actual Skin Integrity Impairment, Risk/Actual: Related Risk Factors fluid/nutrition status;immobility;surgery/procedure OUTCOME EVALUATION NOTE: OUTCOME SUMMARY: Patient arrived to unit from PACU A&Ox4, epidural dressing CDI, continuous infusion along with PCEA dosing managing pain well, bilat groin incisions CDI, midline abd incision drainage outlines from PACU, no new drainage throughout the night. NSR, BP WDL. NG tube put out 100 ml of pinkish output, vascular made aware. Adequate UO throughout the night. Afebrile. Will continue to monitor. PLAN MOVING FORWARD: Discontinue barker, continue IS, INDIVIDUALIZED FALL PREVENTION INTERVENTIONS: Patient-specific fall risk factors per assessment: [current deficits]: PCEA, generalized weakness, lines, barker Assistance [level of assistance required for transfers and ambulation]: 1-2+ assist Supervision [direct monitoring required during toileting and ADLs]: Direct monitoring Surveillance [continuous indirect monitoring]: Tele, SpO2 monitoring Patient-specific fall prevention interventions for sensory deficits provided, if applicable: Yes Goal: Skin Integrity/Wound Healing Patient will demonstrate the desired outcomes by discharge/transition of care. Outcome: Ongoing (Interventions Implemented as Appropriate) 04/01/19 0548 Skin Integrity Impairment, Risk/Actual (Adult) Skin Integrity/Wound Healing making progress toward outcome * Op Note - Skye Vasquez MD - 03/31/2019 7:00 PM EST [facility] Operative Note Patient Name: Walker Farmer : [id number] MR#: [id number] Case Date: 03/31/2019 Surgeon: Surgeon(s) and Role: * Judy Álvarez MD - Primary * Skye Vasquez MD - Fellow Preoperative diagnosis: PAD Postoperative diagnosis: PAD Procedure(s) (LRB): @BYPASS GRAFT, AORTOBIFEMORAL W\ SYNTHETIC CONDUIT (WRVU 32.98) (N/A) Anesthesia: General Estimated Blood Loss: 1000 mL Specimens removed during surgery: Order Name Source Comment Collection Info Order Time SPECIMEN TO PATHOLOGY Left Groin Lymph Node OR 15 10006 PAD Left Groin Lymph Node excision YES, Please perform frozen section 03/31/2019 1:35 PM Number of tissue samples (in container) 1 Time specimen removed from patient: 1:26 PM Drains: none Surgical Closure: Primary Closure - skin incision is completely closed without any wires, kentrell, drains or other devices Disposition: awakened from anesthesia, extubated and taken to the recovery room in a stable condition, having suffered no apparent untoward event. Condition: doing well without problems (Please see the Surgical Encounter Summary for any Implant and Specimen details pertinent to this patient.) HPI/Surgical Indications: Walker Farmer is a 54 y.o. female with a hx of PAD (AIOD) and is s/p distalinfrarenal aortic stent graft and bilateral iliac stenting in 2018 with left femoral cutdown. She was initially improved but in the last few months she developed recurrent LLE claudication with decline in SHA from 0.9 to 0.5. She presents today for elective aortobifemoral bypass. ?? Procedure Description: After informed consent was obtained the patient was brought back to the operating room and placed supine on the OR table. General anesthesia was induced and the patient was intubated with an ETT. Additional support lines (barker, arterial line, PIVs) were placed. Preoperative ancef was given. A timeout was performed. Attention was then turned to the patient's bilateral groins where longitudinal incisions were made overlying the femoral artery. Electrocautery was used to dissect through the subcutaneous tissues to the femoral sheath. The left and right common femoral arteries were each identified, circumferentially dissected and encircled with vessel loops. All crossingveins were doubly ligated and divided. Of note we encountered black lymph nodes in bilateral groins, the left was sent to pathology. Next, with blunt dissection, the retroperitoneal tunnels were created. Next, we turned our attention to the patient's abdomen. A midline incision was made from the xiphoid to the pubis. The subcutaneous tissues were divided with cautery. The fascia was divided. The peritoneum was elevated and entered sharply. The abdomen was explored. The liver, gallbladder, peritoneum, small bowel and colon appeared normal. Next, the Omni retractor was used to assist with exposure. The small bowel was packed to the patient's right abdomen, out of the operative field. The ligament of Treitz was divided sharply. The retroperitoneum was then incised sharply, overlying the aorta from the renal arteries to the common iliac arteries bilaterally. The left renal vein was identified and preserved throughout the case. The MAXIMO was identified and preserved. Satisfied with our proximal clamp zone, as well as with our aortic exposure, we completed development of the retroperitonealtunnels to the common femoral arteries. Once this was done, and red rubber catheters were left in each tunnel, the patient was heparinized. After we achieved an ACT>300 the aorta was clamped. One clamp was placed beneath the Renal arteries and a second clamp was placed proximal to the MAXIMO. A longitudinal arteriotomy was created on the anterior surface of the infrarenal aorta. The proximal end of the Dacron graft (12mm x 7mm) was cut to size. The proximal anastomosis was then performed in an end-to-side fashion with running 4-0 prolene. Once the proximal anastomosis was complete, the aorticcross clamp was removed and replaced on the graft limbs. The limbs were passed through the previously made tunnels to each groin, ensuring not to twist or kink the graft. Following this we performed bilateral end-to-side anastomosis between the graft limbs and each common-femoral artery. To do this, the CFAs were clamped proximal and distal. A longitudinal arteriotomy was made along the anterior s urface of the common femoral artery, which was noted to be widely patent with minimal atherosclerotic disease. The Dacron limb was then sewn to the common femoral artery in a running fashion with 5-0prolene. Prior to completion of the anastomosis, all arteries were flushed. The anastomosis was completed and all clamps were removed. The patient tolerated reperfusion of the right leg well. Next, the left anastomosis was performed in a similar fashion. Upon completion of the anastomosis, we opened the left limb of the graft. The patient also tolerated this well. At this time we examined the feet for pedal pulses/Doppler signals, which were satisfactory. Thrombin-soaked gelfoam was then applied to the groin anastomoses and our attention was returned to the abdomen. We inspected for hemostasis. No surgical bleeding was noted. At this time protamine was given. Thrombin-soaked gelfoam, floseal and electrocautery were used to achieve hemostasis. Once we were satisfied with hemostasis, the retroperitoneum was closed over the repair with 2-0 monocryl. The bowel was then inspected, noted to be healthy and viable. It was replaced in anatomic position. Next, the fascia was closed with running1 PDS. The skin was closed with abram. The groins were then each closed in multiple layers of 3-0vicryls followed by abram on the skin. All wounds were cleansed and dressed with gauze and tegader m. The patient had palpable DP/PT pulses bilaterally. The patient was awoken, extubated and taken to PACU in stable condition. Implant Name Type Inv. Item Serial No. Inbound Sales Representative Lot No. LRB No. Used Action GRAFT,HMGD,KNT,BIFUR,[id number] ([id number]) - [id number] IMPLANTS GRAFT,HMGD,KNT,BIFUR,[id number] ([id number]) [id number] [facility] [id number] N/A 1 Implanted Infection Bundle used? ancef Attestation: Case Date: 03/31/2019 Skye Vasquez MD 03/31/2019 Associated attestation - Judy Álvarez MD - 04/01/2019 11:30 AM EST Attestation: Case Date: 03/31/2019 I was present and scrubbed for the entire procedure. JUDY ÁLVAREZ MD 04/01/2019 documented in this encounter Plan of Treatment Not on file documented as of this encounter Procedures Procedure Name Priority Date/Time Associated Diagnosis Comments IMPLANTABLE DEVICES SCAN 04/07/2019 12:00 AM EST HEMOGRAM Routine 04/04/2019 6:15 AM EST DIFFERENTIAL, AUTOMATED Routine 04/04/20 19 6:15 AM EST HC CBC,PLT & AUTO DIFF Routine 9 6:15 AM EST HC PHOSPHORUS, SERUM Routine 04/04/2019 6:15 AM EST HC MAGNESIUM, SERUM Routine 04/04/2019 6 :15 AM EST HC VENIPUNCTURE Routine 04/04/2019 6:15 AM EST XR ABDOMEN 1 VIEW Routine 04/02/2019 7:1 5 AM EST HC PHOSPHORUS, SERUM Routine 04/01/2019 7:41 PM EST HC MAGNESIUM, SERUM Routine 04/01/2019 7 :41 PM EST HC VENIPUNCTURE Routine 04/01/2019 7:41 PM EST HC HEMOGLOBIN, BLOOD Routine 04/01/2019 5:24 AM EST HC VENIPUNCTURE Routine 04/01/2019 5:24 AM EST HC HEMOGLOBIN, BLOOD STAT 03/31/2019 10:02 PM EST BMP W/FASTING GLUCOSE STAT 03/31/2019 6:44 PM EST HC HEMOGLOBIN, BLOOD STAT 03/31/2019 6:44 PM EST HC L-LACTATE Routine 03/31/2019 6:44 PM EST BLOOD GAS 2 ARTERIAL Routine 03/31/2019 5:42 PM EST HEMOGRAM STAT 03/31/2019 4:30 PM EST DIFFERENTIAL, AUTOMATED STAT 03/31/20 19 4:30 PM EST HC PARTIAL THROMBOPLASTIN TIME STAT 03/31/2019 4:30 PM EST HC PROTHROMBIN TIME STAT 03/31/2019 4 :30 PM EST HC FIBRINOGEN TITER STAT 03/31/2019 4 :30 PM EST HC CBC,PLT & AUTO DIFF STAT 9 4:30 PM EST BLOOD GAS 2 ARTERIAL Routine 03/31/2019 4:01 PM EST SPECIMEN TO PATHOLOGY STAT 03/31/2019 1:35 PM EST SURGICAL PATHOLOGY REPORT Routine 03/31/2019 1:26 PM EST BLOOD GAS 2 ARTERIAL Routine 03/31/2019 1:13 PM EST XR FLUORO NO RAD <1HR - OR USE Routine 03/31/2019 12:11 PM EST Bypass Graft Othr, Aortobifemoral ([id number]) 03/31/2019 12:10 PM EST PAD BYPASS GRAFT, AORTOBIFEMORAL W\ SYNTHETIC CONDUIT Routine 03/31/2019 10:16 AM EST ABORH RECHECK STATUS STAT 03/31/2019 10:13 AM EST HC VENIPUNCTURE STAT 03/31/2019 10:13 AM EST ABO/RH TYPING STAT 03/31/2019 10:13 AM EST ANTIBODY SCREEN STAT 03/31/2019 10:13 AM EST documented in this encounter Results * SHA, legs, multiple levels (05/02/2019 8:44 AM EST) VB Text Report Department: Vascular Surgery Lab Patient: [id number] (WALKER FARMER) CPT: 61806 ICD10: Z48.812;I74.09;I 73.9 Referring Physician: JUDY ÁLVAREZ ?? Phone: Indications: s/p Aorto Bi-femoral bypass [...] 1.05(+.49) ---- ? ---- Electronically Signed by: JUDY ÁLVAREZ on 2019-05-02 12:34:43 PM VASCUBASE VB Text Report End of Report VASCUBASE 05/02/2019 8:44 AM EST Judy Álvarez MD VASCULAR ORDERA BLES VASCUBASE * SCAN DOC: IMPLANTABLE DEVICES (04/07/2019 12:00 AM EST) Narrative 04/07/2019 12:00 AM EST Ordered by an unspecified provider. Scanning Provider MEDIA MGR SCAN EXT O RDR/RSLT * Differential, Automated (04/04/2019 6:15 AM EST) Neutrophils % 64.9 % [facility] Neutr Abs (ANC) 3.94 1.70 - 6.10 x10(3)/[facility] Lymphocytes % 23.7 % [facility] Lymphocytes Abs 1.4 0.9 - 3.2 x10(3)/[facility] Monocytes % 8.1 % [facility] Monocyte Abs 0.5 0.3 - 0.9 x10(3)/[facility] Eosinophils % 2.8 % [facility] Eosinophils Abs 0.2 0.0 - 0.4 x10(3)/[facility] Basophils % 0.3 % [facility] Basophils Abs 0.0 0.0 - 0.1 x10(3)/[facility] Immature Gran % 0.20 % [facility] Comment: Immature granulocytes(IG's)percentage and absolute count will include metamyelocytes, myelocytes, and promyelocytes. Blood smears from CBCs yielding IG's will be scanned manually for concordance. If this scan disagrees with the automated IG or if promyelocytes are noted, a manual differential will be performed. Thea Gran Abs 0.01 0.00 - 0.04 x10(3)/[facility] Blood specimen (specimen) 04/04/2019 6:15 AM EST 04/04/2019 6:30 AM EST Narrative Resulting Agency Comment Spec In Lab Heron Bailey MD HEMATOLOGY ORDERABLE S [facility] [place] [address] * (ABNORMAL) Hemogram (04/04/2019 6:15 AM EST) WBC 6.1 4.0 - 9.5 x10(3)/[facility] RBC 2.94(L) 4.00 - 5.21 x10(6)/[facility] Hemoglobin 9.2(L) 11.7 - 15.5 gm/dL [facility] Hematocrit 28.1(L) 35.7 - 45.8 % [facility] MCV 95.6(H) 82.6 - 94.4 [facility] MCH 31.3 27.1 - 32.0 pg [facility] MCHC 32.7 31.7 - 35.0 gm/dL [facility] Platelets 233 145 - 357 x10(3)/[facility] RDWSD 45.8 37.0 - 46.0 [facility] RDWCV 13.1 11.5 - 14.1 % [facility] MPV 10.3 7.6 - 12.9 [facility] nRBC % Auto 0.0 % [facility] nRBC Abs Auto 0.000 0.000 - 0.000 x10(3)/[facility] Blood specimen (specimen) 04/04/2019 6:15 AM EST 04/04/2019 6:30 AM EST Narrative Resulting Agency Comment Spec In Lab Heron Bailey MD HEMATOLOGY ORDERABLE S [facility] [place] [address] * (ABNORMAL) Phosphorus (04/04/2019 6:15 AM EST) Pathologist [facility] Phosphorus 2.2(L) 2.5 - 4.5 mg/dL [facility] Blood specimen (specimen) 04/04/2019 6:15 AM EST 04/04/2019 6:30 AM EST Narrative Resulting Agency Comment Spec In Lab Judy Álvarez MD CHEMISTRY ORDER ZAINA Performing Organization Address City/[facility]/ZIP Co de Phone Number [facility] [place] [address] * Magnesium (04/04/2019 6:15 AM EST) [facility] Magnesium 0.81 0.69 - 1.07 mmol/L [facility] Blood specimen (specimen) 04/04/2019 6:15 AM EST 04/04/2019 6:30 AM EST Narrative Resulting Agency Comment Spec In Lab Judy Álvarez MD CHEMISTRY ORDER ZAINA Performing Organization Address [facility] Co de Phone Number [facility] [place] [address] * (ABNORMAL) Basic Metabolic Panel (non-fasting) (04/04/2019 6:15 AM EST) [facility] Glucose Lvl 152 65 - 199 mg/dL [facility] Comment:Diabetes: >=200 mg/d L plus symptoms BUN 4(L) 8 - 18 mg/dL [facility] Creatinine 0.38(L) 0.70 - 1.20 mg/dL [facility] Sodium 140 135 - 145 mmol/L [facility] Potassium 3.9 3.5 - 5.0 mmol/L [facility] Comment: Please note: ??Patients with WBC >100,000 may have falsely elevated Potassium levels. ??For accurate Potassium quantification in these patients send serum separator tube (gold top) for subsequent determinations. ??Contact the Clinical Chemistry Laboratory if there are any questions. Chloride 106 98 - 107 mmol/L [facility] CO2 24 22 - 31 mmol/L [facility] Anion Gap 10 5 - 15 mmol/L [facility] Calcium 8.1(L) 8.5 - 10.5 mg/dL [facility] Estimated GFR 121 >=60 mL/min/1. 73 m?? [facility] Comment: The eGFR was calculated using the CKD-EPI equation. As with all creatinine based estimates of kidney function, eGFR values calculated with the CKD-EPI equation are not accurate in patients with acute kidney failure, extremes of body mass or the acutely ill. [email or web address] eGFR 140 >=60 mL/min/1. 73 m?? [facility] Comment: The eGFR was calculated using the CKD-EPI equation. As with all creatinine based estimates of kidney function, eGFR values calculated with the CKD-EPI equation are not accurate in patients with acute kidney failure, extremes of body mass or the acutely ill. [email or web address] Blood specimen (specimen) 04/04/2019 6:15 AM EST 04/04/2019 6:30 AM EST Narrative Resulting Agency Comment Spec In Lab Judy Álvarez MD CHEMISTRY ORDER ZAINA [facility] [place] [address] * XR Abdomen 1 view (Generic) (04/02/2019 7:15 AM EST) Anatomical Region Laterality Modality Abdomen N/A Digital Radiogra phy Impressions 04/02/2019 7:58 AM EST 1. ??An enteric tube tip and side-port projecting over the stomach at the antral pylorus region. Tip of this tube projected the expected region of the duodenal bulb. 2. ??Epidural catheter tip projects over T8. Preliminary report signed by: Torsten Lopez at 04/02/2019 7:47 AM I have personally reviewed the image(s) and the residents interpretation and agree with the findings, Evelyn Espinoza at 04/02/2019 7:58 AM Thank you for letting us participate in the care of this patient. For questions regarding this report, please contact the number below. ? Electronically signed by: Evelyn Espinoza [facility] ([phone]), at 04/02/2019 7:58 AM Narrative 04/02/2019 7:58 AM EST EXAMINATION: XR ABDOMEN 1 VIEW (GENERIC) CLINICAL HISTORY: assess NGT placement TECHNIQUE: Radiograph of the lower chest and upper abdomen for the purposes of assessing enteric tube placement. COMPARISON: CT abdomen pelvis dated 01/17/2019. FINDINGS: An enteric tube tip and side-port project over the stomach at the antral pylorus region. Tip of this tube projected in the expected region of the duodenal bulb. Midline surgical abram project over the abdomen. An aortoiliac endograft projects over the lower abdomen. An epidural catheter tip projects midline over T8. No dilated loops of bowel are present in the visualized abdomen. The visualized lungs are clear, though the lung apices are not included in the study. The cardiomediastinal silhouette is within normal limits. No pleural effusion. Procedure Note Evelyn Espinoza MD - 04/02/2019 EXAMINATION: XR ABDOMEN 1 VIEW (GENERIC) CLINICAL HISTORY: assess NGT placement TECHNIQUE: Radiograph of the lower chest and upper abdomen for the purposes ofassessing enteric tube placement. COMPARISON: CT abdomen pelvis dated 01/17/2019. FINDINGS: An enteric tube tip and side-port project over the stomach at the antralpylorus region. Tip of this tube projected in the expected region of the duodenalbulb. Midline surgical abram project over the abdomen. An aortoiliacendograft projects over the lower abdomen. An epidural catheter tip projects midlineover T8. No dilated loops of bowel are present in the visualized abdomen. The visualized lungs are clear, though the lung apices are not included inthe study. The cardiomediastinal silhouette is within normal limits. Nopleural effusion. IMPRESSION 1. An enteric tube tip and side-port projecting over the stomach at theantral pylorus region. Tip of this tube projected the expected region of theduodenal bulb. 2. Epidural catheter tip projects over T8. Preliminary report signed by: Torsten Lopez at 04/02/2019 7:47 AM I have personally reviewed the image(s) and the residents interpretationand agree with the findings, Evelyn Espinoza at 04/02/2019 7:58 AM Thank you for letting us participate in the care of this patient. Forquestions regarding this report, please contact the number below. Electronically signed by: Evelyn Espinoza [facility] ([phone]),at 04/02/2019 7:58 AM Judy Álvarez MD IMG DX ORDERABL ES * Phosphorus (04/01/2019 7:41 PM EST) Phosphorus 2.5 2.5 - 4.5 mg/dL [facility] Blood specimen (specimen) 04/01/2019 7:41 PM EST 04/01/2019 7:46 PM EST Narrative Resulting Agency Comment Spec In Lab Judy Álvarez MD CHEMISTRY ORDER ZAINA Performing Organization Address [facility] Co de Phone Number [facility] [place] [address] * Magnesium (04/01/2019 7:41 PM EST) Magnesium 0.78 0.69 - 1.07 mmol/L [facility] Blood specimen (specimen) 04/01/2019 7:41 PM EST 04/01/2019 7:46 PM EST Narrative Resulting Agency Comment Spec In Lab Judy Álvarez MD CHEMISTRY ORDER ZAINA [facility] [place] [address] * (ABNORMAL) Basic Metabolic Panel (non-fasting) (04/01/2019 7:41 PM EST) Glucose Lvl 145 65 - 199 mg/dL [facility] Comment:Diabetes: >=200 mg/d L plus symptoms BUN 6(L) 8 - 18 mg/dL [facility] Creatinine 0.50(L) 0.70 - 1.20 mg/dL [facility] Sodium 140 135 - 145 mmol/L [facility] Potassium 3.8 3.5 - 5.0 mmol/L [facility] Comment: Please note: ??Patients with WBC >100,000 may have falsely elevated Potassium levels. ??For accurate Potassium quantification in these patients send serum separator tube (gold top) for subsequent determinations. ??Contact the Clinical Chemistry Laboratory if there are any questions. Chloride 104 98 - 107 mmol/L [facility] CO2 24 22 - 31 mmol/L [facility] Anion Gap 12 5 - 15 mmol/L [facility] Calcium 8.6 8.5 - 10.5 mg/dL [facility] Estimated GFR 110 >=60 mL/min/1. 73 m?? [facility] Comment: The eGFR was calculated using the CKD-EPI equation. As with all creatinine based estimates of kidney function, eGFR values calculated with the CKD-EPI equation are not accurate in patients with acute kidney failure, extremes of body mass or the acutely ill. [email or web address] eGFR 128 >=60 mL/min/1. 73 m?? [facility] Comment: The eGFR was calculated using the CKD-EPI equation. As with all creatinine based estimates of kidney function, eGFR values calculated with the CKD-EPI equation are not accurate in patients with acute kidney failure, extremes of body mass or the acutely ill. [email or web address] Blood specimen (specimen) 04/01/2019 7:41 PM EST 04/01/2019 7:46 PM EST Narrative Resulting Agency Comment Spec In Lab Judy Álvarez MD CHEMISTRY ORDER ZAINA Performing Organization Address [facility] Co de Phone Number [facility] [place] [address] * (ABNORMAL) Hemoglobin and Hematocrit, blood (04/01/2019 5:24 AM EST) Hemoglobin 10.9(L) 11.7 - 15.5 gm/dL [facility] Hematocrit 32.4(L) 35.7 - 45.8 % [facility] Blood specimen (specimen) 04/01/2019 5:24 AM EST 04/01/2019 5:52 AM EST Narrative Resulting Agency Comment Spec In Lab Judy Álvarez MD HEMATOLOGY ORDE RABLES Performing Organization Address [facility] de Phone Number [facility] [place] [address] * (ABNORMAL) Basic Metabolic Panel (non-fasting) (04/01/2019 5:24 AM EST) Pathologist [facility] Glucose Lvl 185 65 - 199 mg/dL [facility] Comment:Diabetes: >=200 mg/d L plus symptoms BUN 6(L) 8 - 18 mg/dL [facility] Creatinine 0.58(L) 0.70 - 1.20 mg/dL [facility] Sodium 139 135 - 145 mmol/L [facility] Potassium 3.6 3.5 - 5.0 mmol/L [facility] Comment: Please note: ??Patients with WBC >100,000 may have falsely elevated Potassium levels. ??For accurate Potassium quantification in these patients send serum separator tube (gold top) for subsequent determinations. ??Contact the Clinical Chemistry Laboratory if there are any questions. Chloride 102 98 - 107 mmol/L [facility] CO2 23 22 - 31 mmol/L [facility] Anion Gap 14 5 - 15 mmol/L [facility] Calcium 8.2(L) 8.5 - 10.5 mg/dL [facility] Estimated GFR 105 >=60 mL/min/1. 73 m?? [facility] Comment: The eGFR was calculated using the CKD-EPI equation. As with all creatinine based estimates of kidney function, eGFR values calculated with the CKD-EPI equation are not accurate in patients with acute kidney failure, extremes of body mass or the acutely ill. [email or web address] eGFR 122 >=60 mL/min/1. 73 m?? [facility] Comment: The eGFR was calculated using the CKD-EPI equation. As with all creatinine based estimates of kidney function, eGFR values calculated with the CKD-EPI equation are not accurate in patients with acute kidney failure, extremes of body mass or the acutely ill. [email or web address] Blood specimen (specimen) 04/01/2019 5:24 AM EST 04/01/2019 5:52 AM EST Narrative Resulting Agency Comment Spec In Lab Juyd Álvarez MD CHEMISTRY ORDER ZAINA [facility] [place] [address] * (ABNORMAL) Hemogram (03/31/2019 10:02 PM EST) WBC 15.4(H) 4.0 - 9.5 x10(3)/[facility] RBC 3.40(L) 4.00 - 5.21 x10(6)/[facility] Hemoglobin 10.9(L) 11.7 - 15.5 gm/dL [facility] Hematocrit 32.3(L) 35.7 - 45.8 % [facility] MCV 95.0(H) 82.6 - 94.4 fL [facility] MCH 32.1(H) 27.1 - 32.0 pg [facility] MCHC 33.7 31.7 - 35.0 gm/dL [facility] Platelets 254 145 - 357 x10(3)/[facility] RDWSD 45.9 37.0 - 46.0 [facility] RDWCV 13.1 11.5 - 14.1 % [facility] MPV 9.7 7.6 - 12.9 fL [facility] nRBC % Auto 0.0 % [facility] nRBC Abs Auto 0.000 0.000 - 0.000 x10(3)/[facility] Blood specimen (specimen) 03/31/2019 10:02 PM EST 03/31/2019 10:06 PM EST Narrative Resulting Agency Comment Spec In Lab Judy Álvarez MD HEMATOLOGY HALEY GARCIA [facility] [place] [address] * (ABNORMAL) BMP w/fasting Glucose (03/31/2019 6:44 PM EST) Glucose Fasting 158(H) 65 - 99 mg/dL [facility] Comment: ?Fasting* Glucose Interpretive Criteria Normal ?65-99 mg/dL Impaired Fasting glucose ?100-125 mg/dL Consistent with Diabetes Mellitus ? >or= 126 mg/dL *Fasting is defined as no caloric intake for at least 8 hours In the absence of unequivocal hyperglycemia a plasma glucose value of >or= 126 mg/dL should be repeated on a subsequent day. Diagnosis and Classification of Diabetes Mellitus, Position Statement from the [place] [employer]. ??Diabetes Care, Volume 33, Supplement 1, May 2009 BUN 7(L) 8 - 18 mg/dL [facility] Creatinine 0.51(L) 0.70 - 1.20 mg/dL [facility] Sodium 144 135 - 145 mmol/L [facility] Potassium 3.2(L) 3.5 - 5.0 mmol/L [facility] Comment: Please note: ??Patients with WBC >100,000 may have falsely elevated Potassium levels. ??For accurate Potassium quantification in these patients send serum separator tube (gold top) for subsequent determinations. ??Contact the Clinical Chemistry Laboratory if there are any questions. Chloride 109(H) 98 - 107 mmol/L [facility] CO2 22 22 - 31 mmol/L [facility] Anion Gap 13 5 - 15 mmol/L [facility] Calcium 8.2(L) 8.5 - 10.5 mg/dL [facility] Estimated GFR 110 >=60 mL/min/1. 73 m?? [facility] Comment: The eGFR was calculated using the CKD-EPI equation. As with all creatinine based estimates of kidney function, eGFR values calculated with the CKD-EPI equation are not accurate in patients with acute kidney failure, extremes of body mass or the acutely ill. [email or web address] eGFR 127 >=60 mL/min/1. 73 m?? [facility] Comment: The eGFR was calculated using the CKD-EPI equation. As with all creatinine based estimates of kidney function, eGFR values calculated with the CKD-EPI equation are not accurate in patients with acute kidney failure, extremes of body mass or the acutely ill. [email or web address] Blood specimen (specimen) 03/31/2019 6:44 PM EST 03/31/2019 6:55 PM EST Narrative Resulting Agency Comment Spec In Lab Judy Álvarez MD CHEMISTRY ORDER ZAINA [facility] [place] [address] * Lactate, whole blood, send to lab ([facility] [place] (03/31/2019 6:44 PM EST) Lactate WB 0.8 0.5 - 2.2 mmol/L [facility] Blood specimen (specimen) 03/31/2019 6:44 PM EST 03/31/2019 6:55 PM EST Narrative Resulting Agency Comment Spec In Lab Judy Álvarez MD CHEMISTRY ORDER ZAINA [facility] [place] [address] * (ABNORMAL) Hemogram (03/31/2019 6:44 PM EST) WBC 14.8(H) 4.0 - 9.5 x10(3)/[facility] LAB[facility]ATORY RBC 3.46(L) 4.00 - 5.21 x10(6)/[facility]ORY Hemoglobin 11.0(L) 11.7 - 15.5 gm/dL [facility] Hematocrit 33.0(L) 35.7 - 45.8 % [facility] MCV 95.4(H) 82.6 - 94.4 fL [facility] MCH 31.8 27.1 - 32.0 pg [facility] MCHC 33.3 31.7 - 35.0 gm/dL [facility] Platelets 267 145 - 357 x10(3)/[facility] LABORATORY RDWSD 45.4 37.0 - 46.0 fL [facility] RDWCV 13.0 11.5 - 14.1 % [facility] MPV 9.6 7.6 - 12.9 fL [facility] nRBC % Auto 0.0 % [facility] nRBC Abs Auto 0.000 0.000 - 0.000 x10(3)/[facility] Blood specimen (specimen) 03/31/2019 6:44 PM EST 03/31/2019 6:55 PM EST Narrative Resulting Agency Comment Spec In Lab Judy Álvarez MD HEMATOLOGY ORDE RABLES [facility] [place] [address] * (ABNORMAL) BLOOD GAS 2 ARTERIAL (03/31/2019 5:42 PM EST) pH Art 7.37 7.35 - 7.45 [facility] pCO2 Art 40 35 - 45 mmHg [facility] pO2 Art 286(H) 85 - 104 mmHg [facility] HCO3 Art 22.7 20.0 - 26.0 mmol/L [facility] BE Art -2.5 -3.0 - 3.0 mmol/L [facility] Hgb Blood Gas 10.6(L) 11.7 - 15.5 gm/dL [facility] O2HB Art 98.6(H) 94.0 - 97.0 % [facility] COHB Art 0.4 % [facility] Comment: Nonsmokers: 0.5-1.5% COHB Smokers: Variable, but usually less than 10% Toxic: 20-30% COHB Lethal: Greater than 60% COHB METHB Art 0.3 <=1.5 % [facility] Na Whole Blood 140 135 - 145 mmol/L [facility] K Whole Blood 3.1(L) 3.5 - 5.0 mmol/L [facility] Comment: Please note: Patients with WBC >100,000 may have falsely elevated Potassium levels. Contact the Clinical Chemistry Laboratory if there are any questions. ICa Whole Blood 1.14(L) 1.15 - 1.33 mmol/L [facility] Comment: Note: ??Total bilirubin higher than 20 mg/dL may lead to falsely low ionized calcium. CL Whole Blood 111(H) 98 - 107 mmol/L [facility] Gluc Whole Bld 143 65 - 199 mg/dL [facility] Comment:Diabetes: >=200 mg/d L plus symptoms. Lactate WB 1.1 0.5 - 2.2 mmol/L [facility] Blood specimen (specimen) 03/31/2019 5:42 PM EST 03/31/2019 5:42 PM EST Judy Álvarez MD CHEMISTRY ORDER ZAINA [facility] [place] [address] * (ABNORMAL) Differential, Automated (03/31/2019 4:30 PM EST) Neutrophils % 77.1 % [facility] Neutr Abs (ANC) 13.23(H) 1.70 - 6.10 x10(3)/[facility]ORATORY Lymphocytes % 17.6 % [facility] Lymphocytes Abs 3.0 0.9 - 3.2 x10(3)/[facility] Monocytes % 4.1 % [facility] Monocyte Abs 0.7 0.3 - 0.9 x10(3)/[facility] Eosinophils % 0.3 % [facility] Eosinophils Abs 0.1 0.0 - 0.4 x10(3)/[facility] Basophils % 0.4 % [facility] Basophils Abs 0.1 0.0 - 0.1 x10(3)/[facility] Immature Gran % 0.50 % [facility] Comment: Immature granulocytes(IG's)percentage and absolute count will include metamyelocytes, myelocytes, and promyelocytes. Blood smears from CBCs yielding IG's will be scanned manually for concordance. If this scan disagrees with the automated IG or if promyelocytes are noted, a manual differential will be performed. Thea Gran Abs 0.09(H) 0.00 - 0.04 x10(3)/ L [facility] Blood specimen (specimen) 03/31/2019 4:30 PM EST 03/31/2019 4:32 PM EST Narrative Resulting Agency Comment Spec In Lab Rosita Ayala MD HEMATOLOGY ORDERABLE S [facility] [place] [address] * (ABNORMAL) Hemogram (03/31/2019 4:30 PM EST) WBC 17.2(H) 4.0 - 9.5 x10(3)/[facility] RBC 3.46(L) 4.00 - 5.21 x10(6)/[facility] Hemoglobin 11.1(L) 11.7 - 15.5 gm/dL [facility] Hematocrit 33.2(L) 35.7 - 45.8 % [facility] Comment: This result has been called to HOSEA WHITTAKER by Jag Harris on 03 31 2019 at 1701, and has been read back. MCV 96.0(H) 82.6 - 94.4 [facility] MCH 32.1(H) 27.1 - 32.0 pg [facility] MCHC 33.4 31.7 - 35.0 gm/dL [facility] Platelets 280 145 - 357 x10(3)/[facility] RDWSD 45.8 37.0 - 46.0 [facility] RDWCV 13.1 11.5 - 14.1 % [facility] MPV 9.9 7.6 - 12.9 [facility] nRBC % Auto 0.0 % [facility] nRBC Abs Auto 0.000 0.000 - 0.000 x10(3)/[facility] Blood specimen (specimen) 03/31/2019 4:30 PM EST 03/31/2019 4:32 PM EST Narrative Resulting Agency Comment Spec In Lab Rosita Ayala MD HEMATOLOGY ORDERABLE S Performing Organization Address City/[facility]/ZIP Co de Phone Number [facility] [place] [address] * Fibrinogen (03/31/2019 4:30 PM EST) Fibrinogen 209 200 - 393 mg/dL [facility] Comment: A fibrinogen level >100 mg/dL is adequate for hemostasis in most patients without underlying bleeding disorders. Blood specimen (specimen) 03/31/2019 4:30 PM EST 03/31/2019 4:32 PM EST Narrative Resulting Agency Comment Spec In Lab Judy Álvarez MD HEMATOLOGY ORDBrianna GARCIA Performing Organization Address [facility] de Phone Number [facility] [place] [address] * (ABNORMAL) APTT (03/31/2019 4:30 PM EST) PTT >160(Crit ical) 25 - 37 sec [facility] Comment: Called by: FARZANA, Read back by: Hosea Whittaker, Date/Time:03/31/19 17:02. The PTT is NOT appropriate for heparin monitoring. Use the Anti-Xa level for heparin monitoring (HEP UFH) or LMWH monitoring (HEP LMW). A PTT less than 37 seconds generally indicates adequate hemostasis. Blood specimen (specimen) 03/31/2019 4:30 PM EST 03/31/2019 4:32 PM EST Narrative Resulting Agency Comment Spec In Lab Judy Álvarez MD HEMATOLOGY ORDBrianna GARCIA Performing Organization Address [facility] de Phone Number [facility] [place] [address] * (ABNORMAL) Prothrombin Time (03/31/2019 4:30 PM EST) PT 13.2(H) 9.4 - 12.5 sec [facility] INR 1.1 [facility] Comment: An INR <2.0 indicates adequate procoagulant activity for hemostasis in most patients without underlying bleeding disorders, though the INR may not adequately reflect hemostatic capacity in patients with liver disease and synthetic impairment. The recommended target INR range for therapeutic anticoagulation is 2.0 ? 3.0 for most applications, though lower and higher ranges may be appropriate depending on clinical circumstances. Blood specimen (specimen) 03/31/2019 4:30 PM EST 03/31/2019 4:32 PM EST Narrative Resulting Agency Comment Spec In Lab Judy Álvarez MD HEMATOLOGY HALEY GARCIA [facility] [place] [address] * (ABNORMAL) BLOOD GAS 2 ARTERIAL (03/31/2019 4:01 PM EST) pH Art 7.34(L) 7.35 - 7.45 [facility] pCO2 Art 45 35 - 45 mmHg [facility] pO2 Art 271(H) 85 - 104 mmHg [facility] HCO3 Art 24.1 20.0 - 26.0 mmol/L [facility] BE Art -1.7 -3.0 - 3.0 mmol/L [facility] Hgb Blood Gas 11.9 11.7 - 15.5 gm/dL [facility] O2HB Art 98.5(H) 94.0 - 97.0 % [facility] COHB Art 0.5 % [facility] Comment: Nonsmokers: 0.5-1.5% COHB Smokers: Variable, but usually less than 10% Toxic: 20-30% COHB Lethal: Greater than 60% COHB METHB Art 0.3 <=1.5 % [facility] Na Whole Blood 140 135 - 145 mmol/L [facility] K Whole Blood 3.3(L) 3.5 - 5.0 mmol/L [facility] Comment: Please note: Patients with WBC >100,000 may have falsely elevated Potassium levels. Contact the Clinical Chemistry Laboratory if there are any questions. ICa Whole Blood 1.15 1.15 - 1.33 mmol/L [facility] Comment: Note: ??Total bilirubin higher than 20 mg/dL may lead to falsely low ionized calcium. CL Whole Blood 110(H) 98 - 107 mmol/L [facility] Gluc Whole Bld 158 65 - 199 mg/dL [facility] Comment:Diabetes: >=200 mg/d L plus symptoms. Lactate WB 1.4 0.5 - 2.2 mmol/L [facility] Blood specimen (specimen) 03/31/2019 4:01 PM EST 03/31/2019 4:01 PM EST Judy Álvarez MD CHEMISTRY ORDER ZAINA Performing Organization Address [facility] [place] [address] * Specimen to Pathology (03/31/2019 1:35 PM EST) AP Specimen 03/31/2019 1:35 PM EST 03/31/2019 1:35 PM EST Narrative [facility] - 03/31/2019 1:35 PM EST Specimen requisition ordered. ??Separate Pathology report to follow Judy Álvarez MD PATHOLOGY/CYTOL OGY ORDERABLES Performing Organization Address [facility] [place] [address] * Surgical Pathology Report (03/31/2019 1:26 PM EST) Pathologist [facility] Surgical Pathology Report [id number] ? Location: [facility]; [facility]; A The signing pathologist has (i) examined the relevant preparation(s) for the specimen(s) and (ii) rendered or confirmed the diagnosis(es). . ?Surgical Pathology DIAGNOSIS Lymph node, left groin lymph node, excision: - Benign lymph node with intraparenchymal and intracapsular black pigment, ? see Discussion. Electronically signed by: ??Ángel Garcia MD Verified: ??04/04/2019 ?Dermatopathologis t, Bone & Soft Tissue Pathologist Performed at: ??-[facility] Dept. [place]ology, [place], [place] DISCUSSION This finding could be the sequela of a tattoo. Clinical correlation is necessary. ?Dr. Mauricio has reviewed this case and concurs with this diagnosis. CLINICAL INFORMATION Specimen Submitted: A - Left groin lymph node Clinical History and Diagnosis: PAD SPECIMEN PROCESSING A - Labeled/Fixative: Left groin lymph node, fresh for frozen section. Quantity/Size: Single, 1 x 0.6 cm. Tissue Description: Black, soft, lymph node. Sections/Processing : Bisected and entirely submitted in 1 cassette labeled A1. ??AJ ?Frozen Section FROZEN SECTION DIAGNOSIS FSA1) Left groin lymph node for frozen section: - Lymph node tissue with interspersed black pigment Time and Date reported: 03/31/2019 at 2:08pm Electronically signed by: ??Ángel Garcia MD Verified: ??03/31/2019 ?Dermatopathologis t, Bone & Soft Tissue Pathologist Performed at: ??-[facility] Dept. of [place]ology, [place], [place] This intraoperative consultation should be interpreted as a preliminary diagnosis pending review of the entire specimen and special studies, if any. [facility] 03/31/2019 1:26 PM EST Judy Álvarez MD PATHOLOGY/CYTOL OGY ORDERABLES [facility] [place] [address] * (ABNORMAL) BLOOD GAS 2 ARTERIAL (03/31/2019 1:13 PM EST) pH Art 7.45 7.35 - 7.45 [facility] pCO2 Art 32(L) 35 - 45 mmHg [facility] pO2 Art 312(H) 85 - 104 mmHg [facility] HCO3 Art 21.3 20.0 - 26.0 mmol/L [facility] BE Art -2.7 -3.0 - 3.0 mmol/L [facility] Hgb Blood Gas 11.4(L) 11.7 - 15.5 gm/dL [facility] O2HB Art 98.1(H) 94.0 - 97.0 % [facility] COHB Art 0.9 % [facility] Comment: Nonsmokers: 0.5-1.5% COHB Smokers: Variable, but usually less than 10% Toxic: 20-30% COHB Lethal: Greater than 60% COHB METHB Art 0.3 <=1.5 % [facility] Na Whole Blood 140 135 - 145 mmol/L [facility] K Whole Blood 2.7(Critic al) 3.5 - 5.0 mmol/L [facility] Comment: Noted by instrument adjuster. Please note: Patients with WBC >100,000 may have falsely elevated Potassium levels. Contact the Clinical Chemistry Laboratory if there are any questions. ICa Whole Blood 1.04(L) 1.15 - 1.33 mmol/L [facility] Comment: Note: ??Total bilirubin higher than 20 mg/dL may lead to falsely low ionized calcium. CL Whole Blood 112(H) 98 - 107 mmol/L [facility] Gluc Whole Bld 138 65 - 199 mg/dL [facility] Comment:Diabetes: >=200 mg/d L plus symptoms. Lactate WB 0.6 0.5 - 2.2 mmol/L [facility] Blood specimen (specimen) 03/31/2019 1:13 PM EST 03/31/2019 1:13 PM EST Judy Álvarez MD CHEMISTRY ORDER ZAINA [facility] [place] [address] * XR Fluoro No Rad <1Hr - OR Use (03/31/2019 12:11 PM EST) Narrative RAD - 03/31/2019 12:17 PM EST This exam is auto-finalizing. No interpretation was done. Judy Álvarez MD IMG FLUORO ORDE RABLES Performing Organization Address City/[facility] Co de Phone Number RAD [place], [place] * ABORH Recheck Status (03/31/2019 10:13 AM EST) ABORH Type Recheck Completed [facility] Blood specimen (specimen) 03/31/2019 10:13 AM EST 03/31/2019 10:16 AM EST Narrative Resulting Agency Comment Spec In Lab Judy Álvarez MD BLOOD BANK LAB ORDERABLES Performing Organization Address [facility] Co de Phone Number [facility] [place] [address] * Antibody screen (03/31/2019 10:13 AM EST) Ab Screen Interp Negative [facility] Expires at 2359 on: 04/03/2019 [facility] Blood specimen (specimen) 03/31/2019 10:13 AM EST 03/31/2019 10:16 AM EST Narrative Resulting Agency Comment Spec In Lab Judy Álvarez MD BLOOD BANK LAB ORDERABLES Performing Organization Address City/[facility] Co de Phone Number [facility] [place] [address] * ABO/Rh Typing (03/31/2019 10:13 AM EST) ABORH Type A Pos [facility] Blood specimen (specimen) 03/31/2019 10:13 AM EST 03/31/2019 10:16 AM EST Narrative Resulting Agency Comment Spec In Lab Judy Álvarez MD BLOOD BANK LAB ORDERABLES [facility] [place] [address] documented in this encounter Visit Diagnoses Not on filedocumented in this encounter Admitting Diagnoses Diagnosis PAD (peripheral artery disease) Peripheral vascular disease, unspecified documented in this encounter Administered Medications Inactive Administered Medications - up to 3 most recent administrations Medication Order MAR Action Action Date Dose Rate Site acetaminophen (TYLENOL) tablet 650 mg 650 mg, Oral, EVERY 6 HOURS SCHEDULED, First dose on Wilda 04/03/19 at 1800, Until Discontinued, Maximum dose of acetaminophen is 4000 mg from all sources in 24 hours., Routine Given 04/05/2019 11:25 AM EST 650 mg Given 04/05/2019 6:15 AM EST 650 mg Given 04/04/2019 11:25 PM EST 650 mg amLODIPine (NORVASC) tablet 10 mg 10 mg, Oral, DAILY, First dose on 04/05/19 at 0900, Until Discontinued, Routine Given 04/05/2019 8:17 AM EST 10 mg aspirin chewable tablet 81 mg 81 mg, Oral, DAILY, First dose on 04/05/19 at 0900, Until Discontinued, Routine Given 04/05/2019 8:17 AM EST 81 mg atorvastatin (LIPITOR) tablet 40 mg 40 mg, Oral, EVERY EVENING, First dose on Sun04/04/19 at 2000, Until Discontinued, Routine Given 04/04/2019 9:18 PM EST 40 mg bisacodyl (DULCOLAX) suppository 10 mg 10 mg, Rectal, DAILY PRN, Starting on Sun04/04/19 at 0821, Until 04/05/19 at 1741, Constipation, Routine Given 04/04/2019 8:49 AM EST 10 mg heparin (porcine) injection ONCE PRN, Starting on 03/31/19 at 1816, Until 04/05/19 at 1741, Intra-Operative (Intra-Procedure), Routine Given 03/31/2019 6:16 PM EST 2,500 Units 19- Surgical Site heparin (Porcine) subcutaneous injection 5,000 Units 5,000 Units, Subcutaneous, EVERY 8 HOURS SCHEDULED, First dose on Sun04/04/19 at 0845, Until Discontinued, Routine Given 04/05/2019 6:17 AM EST 5,000 Units Right Arm Given 04/04/2019 9:16 PM EST 5,000 Units L eft Quadriceps Given 04/04/2019 8:49 AM EST 5,000 Units hydroCHLOROthiazide (HYDRODIURIL) tablet 25 mg 25 mg, Oral, DAILY, First dose on Sun04/04/19 at 2000, Until Discontinued, Routine Given 04/05/2019 8:17 AM EST 25 mg Given 04/04/2019 9:17 PM EST 25 mg lidocaine (LIDODERM) 5 % patch 3 patch 3 patch, Transdermal, EVERY 24 HOURS, First dose on Sun04/01/19 at 1030, Until Discontinued, Apply patch(es) for 12 hours, and then remove for 12 hours, Routine Patch Applied 04/05/2019 11:25 AM EST 3 patches 16- Thigh Anterior (Right) Patch Applied 04/04/2019 11:24 AM EST 3 patches 16- Thigh Anterior (Right) Patch Applied 04/03/2019 9:37 AM EST 3 patches 16- Thigh Anterior (Right) lidocaine (LIDODERM) 5 %(700 mg/patch) Patch Removal Transdermal, EVERY 24 HOURS, First dose on Sun04/01/19 at 2215, Until Discontinued, Remove lidocaine 5 %(700 mg/patch) patch nicotine (NICODERM CQ) 21 mg/24 hr patch 21 mg 21 mg (1 patch), Transdermal, DAILY, First dose on Sun03/31/19 at 2330, Until Discontinued, Routine Patch Applied 04/05/2019 8:18 AM EST 21 mg 03- Shoulder (Left) Patch Applied 04/04/2019 8:49 AM EST 21 mg 09- Arm Upper (Left) Patch Applied 04/03/2019 9:22 AM EST 21 mg 10- Arm Upper (Right) nicotine (NICODERM CQ) 21 mg/24 hr patch Patch Removal Transdermal, DAILY, First dose on Sun04/02/19 at 0900, Until Discontinued, Remove nicotine 21 mg/24 hr patch nicotine (NICODERM CQ) 21 mg/24 hr patch Patch Verification Transdermal, 2 TIMES DAILY, First dose on Sun04/02/19 at 0900, Until Discontinued, Verify nicotine 21 mg/24 hr patch oxyCODONE (ROXICODONE) immediate release tablet 5-10 mg 5-10 mg, Oral, EVERY 4 HOURS PRN, Starting on Sun04/04/19 at 1220, Until Sun04/05/19 at 1741, Pain, moderate pain (4-6), Initial dose 5mg. If pain control not adequate in 60 minutes, give additional 5mg, Routine Given 04/05/2019 3:13 AM EST 5 mg Given 04/04/2019 9:22 PM EST 5 mg Given 04/04/2019 3:09 PM EST 5 mg pantoprazole (PROTONIX) injection 40 mg 40 mg, Intravenous, 2 TIMES DAILY, First dose on Sun04/01/19 at 0900, Until Discontinued Given 04/05/2019 8:19 AM EST 40 mg Given 04/04/2019 9:17 PM EST 40 mg Le ft Arm Given 04/04/2019 8:50 AM EST 40 mg phenol 1.4% (CHLORASEPTIC) spray 1 spray 1 spray, Oral, EVERY 2 HOURS PRN, Starting on Sun04/03/19 at 0606, Until 04/05/19 at 1741, Irritation, Routine Given 04/03/2019 6:35 AM EST 1 spra y polyethylene glycol (MIRALAX) packet 17 g 17 g, Oral, DAILY, First dose on Sun04/05/19 at 1130, Until Discontinued, Routine Given 04/05/2019 11:25 AM EST 17 g senna-docusate (PERICOLACE) 8.6-50 mg per tablet 1 tablet 1 tablet, Oral, 2 TIMES DAILY, First dose on Sun04/04/19 at 2100, Until Discontinued, Routine Given 04/05/2019 8:17 AM EST 1 tablet Given 04/04/2019 9:18 PM EST 1 tablet documented in this encounter Active and Recently Administered Medications Times are shown in EST. Scheduled Medication Order 04/03/2019 04/04/2019 04/05/2019 acetaminophen (OFIRMEV) injection 1,000 mg (CANCELED) 1,000 mg, Intravenous, at 400 mL/hr, Administer over 15 Minutes, EVERY 8 HOURS SCHEDULED, 3 doses, First dose on Sun04/03/19 at 1400, Last dose on Sun04/04/19 at 0600, Maximum dose of acetaminophen is 4000 mg from all sources in 24 hours., Routine, Is ketorolac (Toradol) IV contraindicated? Yes, Can this patient tolerate oral medications or suppositories? No 1440 (Given - Provider: Lidia Spangler RN) acetaminophen (TYLENOL) tablet 650 mg 650 mg, Oral, EVERY 6 HOURS SCHEDULED, First dose on Wilda 04/03/19 at 1800, Until Discontinued, Maximum dose of acetaminophen is 4000 mg from all sources in 24 hours., Routine 1720 (Given - Provider: Lidia Spangler RN)2334 (Given - Provider: Claribel Dias RN) 0533 (Given - Provider: Claribel Dias RN)1124 (Given - Provider: Lidia Spangler RN)1704 (Given - Provider: Lidia Spangler RN)2325 (Given - Provider: Roxie Barroso RN) 0615 (Given - Provider: Roxie Barroso RN)1125 (Given - Provider: Ade Mak RN) amLODIPine (NORVASC) tablet 10 mg 10 mg, Oral, DAILY, First dose on 04/05/19 at 0900, Until Discontinued, Routine 0817 (Given - Provider: Mackenzie White RN) aspirin chewable tablet 81 mg 81 mg, Oral, DAILY, First dose on 04/05/19 at 0900, Until Discontinued, Routine 0817 (Given - Provider: Mackenzie White RN) atorvastatin (LIPITOR) tablet 40 mg 40 mg, Oral, EVERY EVENING, First dose on Sun04/04/19 at 2000, Until Discontinued, Routine 211 (Given - Provider: Roxie Barroso RN) bisacodyl (DULCOLAX) suppository 10 mg (COMPLETED) 10 mg, Rectal, ONCE, 1 dose, On 04/05/19 at 0700, Routine 1126 (Given - Provider: Ade Mak RN) heparin (Porcine) subcutaneous injection 5,000 Units 5,000 Units, Subcutaneous, EVERY 8 HOURS SCHEDULED, First dose on Sun04/04/19 at 0845, Until Discontinued, Routine 0849 (Given - Provider: Lidia Spangler RN)1400 (Not Given - Provider: Lidia Spangler RN - Reason: See comment - Comment: epidural will come out soon.)211 (Given - Provider: Roxie Barroso RN) 0617 (Given - Provider: Roxie Barroso RN)1400 (Not Given - Provider: Ade Mak RN - Reason: See comment - Comment: pt d/c) hydroCHLOROthiazide (HYDRODIURIL) tablet 25 mg 25 mg, Oral, DAILY, First dose on Sun04/04/19 at 2000, Until Discontinued, Routine 2117 (Given - Provider: Roxie Barroso RN) 0817 (Given - Provider: Mackenzie White RN) lidocaine (LIDODERM) 5 % patch 3 patch(Linked Group 1) 3 patch, Transdermal, EVERY 24 HOURS, First dose on Sun04/01/19 at 1030, Until Discontinued, Apply patch(es) for 12 hours, and then remove for 12 hours, Routine 0937 (Patch Applied - Provider: Lidia Spangler RN) 1124 (Patch Applied - Provider: Lidia Spangler RN) 1125 (Patch Applied - Provider: Ade Mak RN) lidocaine (LIDODERM) 5 %(700 mg/patch) Patch Removal(Linked Group 1) Transdermal, EVERY 24 HOURS, First dose on Sun04/01/19 at 2215, Until Discontinued, Remove lidocaine 5 %(700 mg/patch) patch 2215 (Patch Removed - Provider: Claribel Dias RN) 2215 (Patch Removed - Provider: Roxie Barroso RN) nicotine (NICODERM CQ) 21 mg/24 hr patch 21 mg 21 mg (1 patch), Transdermal, DAILY, First dose on Sun03/31/19 at 2330, Until Discontinued, Routine 0922 (Patch Applied - Provider: Lidia Spangler RN) 0849 (Patch Applied - Provider: Lidia Spangler RN) 0818 (Patch Applied - Provider: Mackenzie White RN) nicotine (NICODERM CQ) 21 mg/24 hr patch Patch Removal(Linked Group 2) Transdermal, DAILY, First dose on Sun04/02/19 at 0900, Until Discontinued, Remove nicotine 21 mg/24 hr patch 0900 (Patch Removed - Provider: Lidia Spangler RN) 0900 (Patch Removed - Provider: Lidia Spangler RN) 0900 (Patch Removed - Provider: Mackenzie White RN) nicotine (NICODERM CQ) 21 mg/24 hr patch Patch Verification(Linked Group 2) Transdermal, 2 TIMES DAILY, First dose on Sun04/02/19 at 0900, Until Discontinued, Verify nicotine 21 mg/24 hr patch 899 (Patch (dose and location) verified - Provider: Lidia Spangler RN)2099 (Patch (dose and location) verified - Provider: Claribel Dias RN) 899 (Patch (dose and location) verified - Provider: Lidia Spangler RN)2099 (Patch (dose and location) verified - Provider: Roxie Barroso RN) 899 (Patch (dose and location) verified - Provider: Mackenzie White RN) pantoprazole (PROTONIX) injection 40 mg 40 mg, Intravenous, 2 TIMES DAILY, First dose on Sun04/01/19 at 0900, Until Discontinued 921 (Given - Provider: Lidia Spangler RN)2049 (Given - Provider: Claribel Dias RN) 0850 (Given - Provider: Lidia Spangler RN)2116 (Given - Provider: Roxie Barroso RN) 08 (Given - Provider: Mackenzie White, SADAF) polyethylene glycol (MIRALAX) packet 17 g 17 g, Oral, DAILY, First dose on Sun04/05/19 at 1130, Until Discontinued, Routine 1125 (Given - Provider: Ade Mak RN) senna-docusate (PERICOLACE) 8.6-50 mg per tablet 1 tablet 1 tablet, Oral, 2 TIMES DAILY, First dose on Sun04/04/19 at 2100, Until Discontinued, Routine 2117 (Given - Provider: Roxie Barroso RN) 0817 (Given - Provider: Mackenzie White, SADAF) Continuous Medication Order 04/03/2019 04/04/2019 04/05/2019 dextrose 5% and sodium chloride 0.45% with potassium chloride 20 mEq infusion (CANCELED) 100 mL/hr, Intravenous, CONTINUOUS, Starting on Sun04/02/19 at 0915, Until Sun04/04/19 at 1642, Warning Vesicant/Irritant Medication 0031 (New Bag - Provider: Rosina Mota RN)0555 (New Bag - Provider: Rosina Mota RN)1616 (New Bag - Provider: Lidia Spangler RN) 0255 (New Bag - Provider: Claribel Dias RN)1259 (New Bag - Provider: Carli Finn RN) HYDROmorphone (Dilaudid) 10 mcg/mL, BUpivacaine (Marcaine) 0.1% (0.1 mg/mL) (1/10%) in sodium chloride 0.9% 250 mL epidural (CANCELED) Epidural, PCEA Dose: 5 mL, PCEA Frequency: Every 20 minutes 1048 (New Bag - Provider: Lidia Spangler RN) 0618 (New Bag - Provider: Claribel Dias RN) HYDROmorphone (Dilaudid) 10 mcg/mL, BUpivacaine (Marcaine) 0.1% (0.1 mg/mL) (1/10%) in sodium chloride 0.9% 250 mL epidural (CANCELED)(Linked Group 3) Epidural, PCEA Dose: 3 mL, PCEA Frequency: Every 20 minutes 1030 (Rate/Dose Change - Provider: Mallory Booker RN - Comment: by APS)1204 (Rate/Dose Change - Provider: Lidia Spangler RN) PRN Medication Order 04/03/2019 04/04/2019 04/05/2019 bisacodyl (DULCOLAX) suppository 10 mg 10 mg, Rectal, DAILY PRN, Starting on Sun04/04/19 at 0821, Until 04/05/19 at 1741, Constipation, Routine 0849 (Given - Provider: Lidia Spangler RN) labetalol (NORMODYNE,TRANDATE) injection 10 mg (CANCELED) 10 mg, Intravenous, EVERY 1 HOUR PRN, Starting on 03/31/19 at 1901, Until 04/05/19 at 0641, High Blood Pressure, for SBP > 150, hold for HR < 60 for maximum of 2 doses, then sierra LIAO, May repeat 10 mg in 15 minutes once if SBP goal not achieved, Routine 2325 (Given - Provider: Roxie Barroso RN) nalbuphine (NUBAIN) 10 mg/mL injection 2 mg (CANCELED) 2 mg, Intravenous, EVERY 4 HOURS PRN, Starting on 03/31/19 at 1005, Until Sun04/04/19 at 1558, Itching, If not effective, may repeat once after 30 minutes with each 4 hour dosing interval. For itching caused by hydromorphone or fentanyl use nalbuphine first. For itching caused by morphine use diphenhydramine first., Routine 1618 (Given - Provider: Lidia Spangler RN) oxyCODONE (ROXICODONE) immediate release tablet 5-10 mg 5-10 mg, Oral, EVERY 4 HOURS PRN, Starting on Sun04/04/19 at 1220, Until 04/05/19 at 1741, Pain, moderate pain (4-6), Initial dose 5mg. If pain control not adequate in 60 minutes, give additional 5mg, Routine 1509 (Given - Provider: Lidia Spangler RN)2122 (Given - Provider: Roxie Barroso RN) 0313 (Given - Provider: Roxie Barroso RN) phenol 1.4% (CHLORASEPTIC) spray 1 spray 1 spray, Oral, EVERY 2 HOURS PRN, Starting on [place] 04/03/19 at 0606, Until 04/05/19 at 1741, Irritation, Routine 0635 (Given - Provider: Rosina Mota RN) Linked Groups Order Group 1: lidocaine (LIDODERM) 5 % patch 3 patchJump to med 3 patch, Transdermal, EVERY 24 HOURS, First dose on Sun04/01/19 at 1030, Until Discontinued, Apply patch(es) for 12 hours, and then remove for 12 hours, Routine And lidocaine (LIDODERM) 5 %(700 mg/patch) Patch RemovalJump to med Transdermal, EVERY 24 HOURS, First dose on Sun04/01/19 at 2215, Until Discontinued, Remove lidocaine 5 %(700 mg/patch) patch Group 2: nicotine (NICODERM CQ) 21 mg/24 hr patch Patch VerificationJump to med Transdermal, 2 TIMES DAILY, First dose on Sun04/02/19 at 0900, Until Discontinued, Verify nicotine 21 mg/24 hr patch And nicotine (NICODERM CQ) 21 mg/24 hr patch Patch RemovalJump to med Transdermal, DAILY, First dose on Sun04/02/19 at 0900, Until Discontinued, Remove nicotine 21 mg/24 hr patch Group 3: HYDROmorphone (Dilaudid) 10 mcg/mL, BUpivacaine (Marcaine) 0.1% (0.1 mg/mL) (1/10%) in sodium chloride 0.9% 250 mL epidural (CANCELED)Jump to med Epidural, PCEA Dose: 3 mL, PCEA Frequency: Every 20 minutes And Neuraxial shift total and Settings verification (CANCELED) Epidural, 2 Times Daily- Neuraxial Shift Total, First dose (after last modification) on Sun04/04/19 at 1800, Until Discontinued documented in this encounter Care Teams Corporate Legal Manager Relationship Specialty Start Date End Date Beena Wilkes, [address] [place] [address] PCP - General Family Medicine 01/13/19 03/02/22 documented as of this encounter
--- OUTSIDE RECORDS SUMMARY | 2023-12-04 01:09 | XMS_ITS | Encounter Summary ---
Author Organization Formerly [facility], Later [facility] Address [facility] [place] [address] Care Team Providers Care Coke Still Cleaner Name Role Phone Beena Wilkes APRN Primary Care Provider [phone] Reason for Visit * Auth/Cert Specialty Diagnoses / Procedures Referred By Contac t Referred To Contact Diagnoses PAD (peripheral artery disease) PAD n/a Procedures PRO BYPASS GRAFT OTHR, AORTOBIFEMORAL @BYPASS GRAFT, AORTOBIFEMORAL W\ SYNTHETIC CONDUIT (WRVU 32.98) Referral ID Status Reason Start Date Expiration Date Visits Re quested Visits Authorized [id number] 1 1 Encounter Details Date Type Department Care Team (Latest Contact Info) Description 03/31/2019 9:52 AM EST - 04/05/2019 3:36 PM [facility] Hospital Encounter [facility] [place] [address] Judy Álvarze MD [facility] [place] [address] Tobacco abuse; Aortoiliac occlusive disease Discharge Disposition: Home Social History Tobacco Use [...] Sign Reading Time Taken Comments Blood Pressure 146/83 04/05/2019 11:32 AM EST Pulse 86 04/02/2019 8:24 AM EST Temperature 36.8 ??C (98.2 ??F) 04/05/2019 11:[address] Respiratory Rate 17 04/05/2019 11:32 AM EST Oxygen Saturation 100% 04/05/2019 11:32 AM EST Inhaled Oxygen Concentration - - Weight 48.2 kg (106 lb 4.2 oz) 04/05/2019 6:00 A M EST Height 154.9 cm (5' [...] AM Darlin Mendez [place] Vascular Lab at [facility] Arrive at: Student Life Dean Area [phone] 05/06/2019 8:30 AM Rashawn Dawn MD Vascular Surgery at [facility] Arrive at: Student Life Dean Area [phone] Future Orders Complete By Expires SHA, legs, multiple levels [VAS8 Custom] 05/05/2019 11/04/2019 Process Instructions: There is no in-house vascular clinical lab scientist available on weeknights (5pm-8am), weekends, or holidays. IF THIS IS A REQUEST FOR AN EMERGENT STUDY DURING THOSE HOURS, please have the senior provider responsible for the patient page the Vascular Surgery Fellow/Senior Resident physician liaison to discuss options. Scheduling Instructions: Questions: Indication for study/signs & symptoms: s/p aortobifemoral bypass Question to be answered: lower extremity flow Preferred location?: [facility] Arterial Duplex, Bilat Legs [VAS3 Custom] 05/05/2019 (Approximate) 11/04/2019 Process Instructions: There is no in-house vascular clinical lab scientist available on weeknights (5pm-8am), weekends, or holidays. IF THIS IS A REQUEST FOR AN EMERGENT STUDY DURING THOSE HOURS, please have the senior provider responsible for the patient page the Vascular Surgery Fellow/Senior Resident physician liaison to discuss options. Scheduling Instructions: Questions: Indication [...] For any problems or questions please call [phone] TOR Broussard, regional program manager Nurse Clinician For issues on weeknights after 5pm and weekends please call [phone] and ask for the Vascular Fellow physician liaison. Heron Bailey MD 04/05/2019 documented in this encounter Discharge Instructions * Discharge Instructions* Buck Watts RN - 04/03/2019 5:15 PM EST Congratulations [...] For any problems or questions please call [phone] TOR Broussard, regional program manager Nurse Clinician For issues on weeknights after 5pm and weekends please call [phone] and ask for the Vascular Fellow physician liaison. documented in this encounter Medications at Time [...] accuracy of the note. * Monie Saini Suresh - 04/04/2019 9:58 AM EST Nutrition Services [...] consider alternative means of nutrition support. Monie Saini DTR Pager [phone] * Laura Quiros APRN - 04/04/2019 8:22 AM EST Vascular Surgery [...] intact, nonfocal, moving all extremities. Recent Labs 04/04/19 0615 WBC 6.1 HGB 9.2* HCT 28.1* PLATELET 233 Recent Labs 04/04/1915 04/01/19 1941 NA 140 140 K 3.9 3.8 CL 106 104 CO2 24 24 BUN 4* 6* CREATININE 0.38* 0.50* PHOS 2.2* 2.5 CALCIUM 8.1* 8.6 New Imaging None Assessment: Walker Farmer is [...] amlodipine and hctz - Dispo: floor status Herno Bailey MD 04/03/2019 * Ezequiel Morales - 04/02/2019 2:25 PM EST Narrative:Visited to introduce and assess acceptance of Senior Benefits Manager services. Pt was not available for visit [...] 8 mL/hr 8 mL/hr Rate/Dose Change 04/01/2019 MARICRUZ APS EPIDURAL ROUNDIN04/02/2019 11:15 AM Average Numeric [...] year. Pt reports 4-5 meals/snacks per day user acceptance tester with no strong food prefs. Pt appears [...] encounter: 44.3 kg (97 lb 10.6 oz). [place] Body Weight:42.9- 47.7 kg Usual Body Weight: [...] ??C (100 ??F)] Heart Rate: [76-101] Resp: [11-28] BP: (105-157)/(54-83) SpO2: [91 %-100 %] Heart [...] a PCEA of 4mL q 20 minutes. IRACHEL RN, have performed the documentation for this [...] ??C (100 ??F)] Heart Rate: [80-101] Resp: [04-17] BP: (123-157)/(65-83) SpO2: [91 %-100 %] Heart [...] with alarms. Pt sleepy but arousable. NGT toLCWS barker to gravity. Dressings C/D/I. +1Palp pulses bilat. [...] day of surgery (03-14) at midnight. The vasc clinic was called and spoke to nurse [...] file Gets together: Not on file Attends [employer] service: Not on file Active member of [...] MD, MS Vascular surgery fellow Service pager [phone] documented in this encounter Miscellaneous Notes * [...] Outcome: Ongoing (Interventions Implemented as Appropriate) 04/03/1925504/03/19 1353 Discharge Needs Assessment Concerns To Be Addressed [...] no PT needs. Time IN / OUT: 9340-4081 Total Evaluation Minutes, Physical Therapy: 20(1 TA) Oskar Carney DPKika Pager: [phone] Physical Therapy Inpatient Rehabilitation Department * Plan [...] EVALUATION: Ongoing * Plan of Care - Claribel Dias RN - 04/04/2019 4:02 AM EST [...] e-cigarette ( X) Cigarettes Brand currently smoking: [place] lights[employer]ics Current amount: 0.25 ppd Age initiated: [...] in places where it is forbidden ex [facility] No Yes 0 3. Which cigarette [...] at home. She has recently applied for [place] Medicaid. I reviewed the resources available through the [place] quit line and she has consented to [...] She has also been provided with a [facility] Smoking Cessation packet and the contents have been reviewed with her. She has my card with my contact information and has been encouraged to call if she has additional q uestions or concerns. Referral to [place] quitline placed. The patient has been encouraged to follow-up with PCP and/or the outpatient Tobacco Physician Scientist, Fanny Gibbs APRN, and GEOFFREY Colon, in 3K clinic. Buck Watst, MSN, RN-BC, NCTTP Tobacco A&P Mechanic [facility] Pager #[phone] * Plan of Care - Oskar Carney [...] 32.98) performed by Judy Álvarez MD at [facility] MAIN OR ??? PRO PLACE INTRAVASCULAR STENT OPEN/PERCUTAN 1ST ARTERY N/A 03/05/2018 TRANSCATH PLACEMENT INTRAVASCULAR STENT, OPN/PERQ, INITIAL ARTERY, S&I (WRVU 9) performed by Yves Vegas MD at [facility] MAIN OR ? ? PRO REVSC OPEN/PERCUTANEOUS ILIAC ART W STNT & ANGIOP IPSI VSL Bilateral 03/05/2018 REVSC OPN\PRQ ILIAC ART W\STNT & ANGIOP EA IPSILATERAL VSL-ALEX (WRVU 4.25) performed by Yves Vegas MD at [facility] MAIN OR ? ? PRO REVSC OPEN/PERCUTANEOUS ILIAC ART W STNT PLMT&ANGIO PRECIOUS VSL UNILAT Bilateral 03/05/2018 REVSC OPN\PRQ ILIAC ART W\STNT PLMT & ANGIOP SAME VSL BILAT (WRVU 10) performed by Yves Vegas MD at [facility] MAIN OR Social History: Pt lives alone but has boyfriend who comes over several times a week and has supportive family as well. 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 Is normally indep but was having [...] outlinedin this evaluation. Time IN / OUT: 4295-9113 Total Evaluation Minutes, Physical Therapy: 24(Eval) Oskar Carney, PT Pager: [phone] Physical Therapy Inpatient Rehabilitation Department * Plan [...] Ongoing (Interventions Implemented as Appropriate) 04/03/19 025 Skin Integrity Impairment, Risk/Actual Skin Integrity Impairment, [...] Assessment Outcome: Ongoing (Interventions Implemented as Appropriate) 04/03/19255 Discharge Needs Assessment Concerns To Be Addressed no discharge needs identified Equipment Needed After Discharge none Discharge Disposition still a patient Current Health Anticipated Changes Related to Illness none Activity/Self Care Review of Systems Equipment Currently Used at Home none Living Environment Transportation Available family or friend will provide Goal: Interdisciplinary Rounds/Family Conf Outcome: Ongoing (Interventions Implemented as Appropriate) 04/03/19255 Interdisciplinary Rounds/Family Conf Participants nursing;patient;physician * Plan [...] Outcome: Ongoing (Interventions Implemented as Appropriate) 04/02/19 0904/02/19 1429 Daily Care Interventions Self-Care Promotion independence [...] Ongoing (Interventions Implemented as Appropriate) 04/01/19 1650 04/01/192129 Plan of Care Review Progress progress toward [...] Status 0 -- Score 35 -- OTHER Dum[place]n Fall Risk Med -- Restraint Interventions Safety Promotion/Fall Prevention -- activity supervised;nonskid shoes/slippers when out of bed;safety round/check completed Positioning Body Position -- independent Activity Activity Type -- activity adjusted per tolerance Activity Assistance Provided -- assistance, 1 person Goal: Infection Control Outcome: Ongoing (Interventions Implemented as Appropriate) 04/01/190 04/02/19 0010 04/02/19337 Safety Interventions Isolation Precautions [...] given this morning. Adequate urine output. Increased CHEMICAL LABORATORY CHIEF x2 today per APS. Will continue to [...] (Interventions Implemented as Appropriate) 04/01/19 0600 04/01/19 0800 04/01/19 1600 Daily Care Interventions Self-Care Promotion -- [...] Appropriate) 04/01/19 1650 Interdisciplinary Rounds/Family Conf Participants physician;patient;pharmacy;nursing;nurse case management;family;dietitian/nutrition services * Initial Assessments - Leah Chappell [...] Admission: Independent Home Environment: Lives with life claims agent right of way of 10 years, Naif Clemens in an apartment in [place]. Social & Family Supports/Community Resources: Good support [...] Other: Has applied for financial assistance from [facility]. Also now qualifies for food stamps and fuel assistance. Primary Care Provider: Beena Wilkes APRN [phone] Patient/Caregiver Goals of Treatment: to return home [...] unavailable for both attempts. I left the [facility] Tobacco Treatment at the bedside. I will be out of hospital tomorrow and willfollow-up with patient on , the . Buck Watts, MSN, RN-[facility] Tobacco A&P Mechanic [facility] Pager #[phone] * Plan of Care - Jenna Licea [...] Vasquez MD - 03/31/2019 7:00 PM EST [facility] Operative Note Patient Name: Walker Farmer : [id number] MR#: [id number] Case Date: 03/31/2019 Surgeon: Surgeon(s) and Role: [...] PATHOLOGY Left Groin Lymph Node OR 15 28995 PAD Left Groin Lymph Node excision YES, [...] Implant Name Type Inv. Item Serial No. Hotel Controller Lot No. LRB No. Used Action GRAFT,HMGD,KNT,BIFUR,[id number] ([id number]) - [id number] IMPLANTS GRAFT,HMGD,KNT,BIFUR,[id number] ([id number]) [id number] [facility] [id number] N/A 1 Implanted Infection Bundle used? [...] 12:11 PM EST Bypass Graft Othr, Aortobifemoral ([id number]) 03/31/2019 12:10 PM EST PAD BYPASS GRAFT, [...] Text Report Department: Vascular Surgery Lab Patient: [id number] (WALKER FARMER) CPT: 85298 ICD10: Z48.812;I74.09;I 73.9 Referring Physician: JUDY ÁLVAREZ [...] 6:15 AM EST) Neutrophils % 64.9 % [facility] Neutr Abs (ANC) 3.94 1.70 - 6.10 x10(3)/[facility] Lymphocytes % 23.7 % [facility] Lymphocytes Abs 1.4 0.9 - 3.2 x10(3)/[facility] Monocytes % 8.1 % [facility] Monocyte Abs 0.5 0.3 - 0.9 x10(3)/[facility] Eosinophils % 2.8 % [facility] Eosinophils Abs 0.2 0.0 - 0.4 x10(3)/[facility] Basophils % 0.3 % [facility] Basophils Abs 0.0 0.0 - 0.1 x10(3)/[facility] Immature Gran % 0.20 % [facility] Comment: Immature granulocytes(IG's)percentage and absolute count will include metamyelocytes, myelocytes, and promyelocytes. Blood smears from CBCs yielding IG's will be scanned manually for concordance. If this scan disagrees with the automated IG or if promyelocytes are noted, a manual differential will be performed. Thea Gran Abs 0.01 0.00 - 0.04 x10(3)/[facility] Blood specimen (specimen) 04/04/2019 6:15 AM EST 04/04/2019 6:30 AM EST Narrative Resulting Agency Comment Spec In Lab Heron Bailey MD HEMATOLOGY ORDERABLE S [facility] [place] [address] * (ABNORMAL) Hemogram (04/04/2019 6:15 AM EST) WBC 6.1 4.0 - 9.5 x10(3)/[facility] RBC 2.94(L) 4.00 - 5.21 x10(6)/[facility] Hemoglobin 9.2(L) 11.7 - 15.5 gm/dL [facility] Hematocrit 28.1(L) 35.7 - 45.8 % [facility] MCV 95.6(H) 82.6 - 94.4 [facility] MCH 31.3 27.1 - 32.0 pg [facility] MCHC 32.7 31.7 - 35.0 gm/dL [facility] Platelets 233 145 - 357 x10(3)/[facility] RDWSD 45.8 37.0 - [address] [facility] RDWCV 13.1 11.5 - 14.1 % [facility] MPV 10.3 7.6 - 12.9 [facility] LAB[facility] nRBC % Auto 0.0 % [facility] nRBC Abs Auto 0.000 0.000 - 0.000 x10(3)/[facility] Blood specimen (specimen) 04/04/2019 6:15 AM EST 04/04/2019 6:30 AM EST Narrative Resulting Agency Comment Spec In Lab Heron Bailey MD HEMATOLOGY ORDERABLE S [facility] [place] [address] * (ABNORMAL) Phosphorus (04/04/2019 6:15 AM EST) Phosphorus 2.2(L) 2.5 - 4.5 mg/dL [facility] Blood specimen (specimen) 04/04/2019 6:15 AM EST 04/04/2019 6:30 AM EST Narrative Resulting Agency Comment Spec In Lab Judy Álvarez MD CHEMISTRY ORDER ZAINA [facility] [place] [address] * Magnesium (04/04/2019 6:15 AM EST) Pathologist [facility] Magnesium 0.81 0.69 - 1.07 mmol/L [facility] Blood specimen (specimen) 04/04/2019 6:15 AM EST 04/04/2019 6:30 AM EST Narrative Resulting Agency Comment Spec In Lab Judy Álvarez MD CHEMISTRY ORDER ZAINA [facility] [place] [address] * (ABNORMAL) Basic Metabolic Panel (non-fasting) (04/04/2019 6:15 AM EST) Pathologist [facility] Glucose Lvl 152 65 - 199 mg/dL [facility] Comment:Diabetes: >=200 mg/d L plus symptoms BUN 4(L) 8 - 18 mg/dL [facility] Creatinine 0.38(L) 0.70 - 1.20 mg/dL [facility] Sodium 140 135 - 145 mmol/L [facility] Potassium 3.9 3.5 - 5.0 mmol/L [facility] Comment: Please note: ??Patients with WBC >100,000 may have falsely elevated Potassium levels. ??For accurate Potassium quantification in these patients send serum separator tube (gold top) for subsequent determinations. ??Contact the Clinical Chemistry Laboratory if there are any questions. Chloride 106 98 - 107 mmol/L [facility] CO2 24 22 - 31 mmol/L [facility] Anion Gap 10 5 - 15 mmol/L [facility] Calcium 8.1(L) 8.5 - 10.5 mg/dL [facility] Estimated GFR 121 >=60 mL/min/1. 73 m?? [facility] Comment: The eGFR was calculated using the CKD-EPI equation. As with all creatinine based estimates of kidney function, eGFR values calculated with the CKD-EPI equation are not accurate in patients with acute kidney failure, extremes of body mass or the acutely ill. http://[email or web address]/[email or web address] eGFR 140 >=60 mL/min/1. 73 m?? [facility] Comment: The eGFR was calculated using the CKD-EPI equation. As with all creatinine based estimates of kidney function, eGFR values calculated with the CKD-EPI equation are not accurate in patients with acute kidney failure, extremes of body mass or the acutely ill. http://byUs.com/[facility] Blood specimen (specimen) 04/04/2019 6:15 AM EST 04/04/2019 6:30 AM EST Narrative Resulting Agency Comment Spec In Lab Judy Álvarez MD CHEMISTRY ORDER ZAINA Performing Organization Address City/State/[facility] Co de Phone Number [facility] [place] [address] * XR Abdomen 1 view (Generic) (04/02/2019 [...] below. ? Electronically signed by: Evelyn Espinoza [facility] ([phone]), at 04/02/2019 7:58 AM Narrative 04/02/2019 7:58 [...] number below. Electronically signed by: Evelyn Espinoza [facility] ([phone]),at 04/02/2019 7:58 AM Judy Álvarez MD IMG DX ORDERABL ES * Phosphorus (04/01/2019 7:41 PM EST) Phosphorus 2.5 2.5 - 4.5 mg/dL [facility] Blood specimen (specimen) 04/01/2019 7:41 PM EST 04/01/2019 7:46 PM EST Narrative Resulting Agency Comment Spec In Lab Judy Álvarez MD CHEMISTRY ORDER ZAINA Performing Organization Address [facility]/ZIP Co de Phone Number [facility] [place] [address] * Magnesium (04/01/2019 7:41 PM EST) Magnesium 0.78 0.69 - 1.07 mmol/L [facility] Blood specimen (specimen) 04/01/2019 7:41 PM EST 04/01/2019 7:46 PM EST Narrative Resulting Agency Comment Spec In Lab Judy Álvarez MD CHEMISTRY ORDER ZAINA Performing Organization Address [facility]/ZIP Co de Phone Number [facility] [place] [address] * (ABNORMAL) Basic Metabolic Panel (non-fasting) (04/01/2019 7:41 PM EST) Glucose Lvl 145 65 - 199 mg/dL [facility] Comment:Diabetes: >=200 mg/d L plus symptoms BUN 6(L) 8 - 18 mg/dL [facility] Creatinine 0.50(L) 0.70 - 1.20 mg/dL [facility] Sodium 140 135 - 145 mmol/L [facility] Potassium 3.8 3.5 - 5.0 mmol/L [facility] Comment: Please note: ??Patients with WBC >100,000 may have falsely elevated Potassium levels. ??For accurate Potassium quantification in these patients send serum separator tube (gold top) for subsequent determinations. ??Contact the Clinical Chemistry Laboratory if there are any questions. Chloride 104 98 - 107 mmol/L [facility] CO2 24 22 - 31 mmol/L [facility] Anion Gap 12 5 - 15 mmol/L [facility] Calcium 8.6 8.5 - 10.5 mg/dL [facility] Estimated GFR 110 >=60 mL/min/1. 73 m?? [facility] Comment: The eGFR was calculated using the CKD-EPI equation. As with all creatinine based estimates of kidney function, eGFR values calculated with the CKD-EPI equation are not accurate in patients with acute kidney failure, extremes of body mass or the acutely ill. http://byUs.com/[facility] eGFR 128 >=60 mL/min/1. 73 m?? [facility] Comment: The eGFR was calculated using the CKD-EPI equation. As with all creatinine based estimates of kidney function, eGFR values calculated with the CKD-EPI equation are not accurate in patients with acute kidney failure, extremes of body mass or the acutely ill. http://byUs.com/[facility]nkf Blood specimen (specimen) 04/01/2019 7:41 PM EST 04/01/2019 7:46 PM EST Narrative Resulting Agency Comment Spec In Lab Judy Álvarez MD CHEMISTRY ORDER ZAINA Performing Organization Address [facility] Co de Phone Number [facility] [place] [address] * (ABNORMAL) Hemoglobin and Hematocrit, blood (04/01/2019 5:24 AM EST) Hemoglobin 10.9(L) 11.7 - 15.5 gm/dL [facility] Hematocrit 32.4(L) 35.7 - 45.8 % [facility] Blood specimen (specimen) 04/01/2019 5:24 AM EST 04/01/2019 5:52 AM EST Narrative Resulting Agency Comment Spec In Lab Judy Álvarez MD HEMATOLOGY ORDE RABLES Performing Organization Address [facility] de Phone Number [facility] [place] [address] * (ABNORMAL) Basic Metabolic Panel (non-fasting) (04/01/2019 5:24 AM EST) Glucose Lvl 185 65 - 199 mg/dL [facility] Comment:Diabetes: >=200 mg/d L plus symptoms BUN 6(L) 8 - 18 mg/dL [facility] Creatinine 0.58(L) 0.70 - 1.20 mg/dL [facility] Sodium 139 135 - 145 mmol/L [facility] Potassium 3.6 3.5 - 5.0 mmol/L [facility] Comment: Please note: ??Patients with WBC >100,000 may have falsely elevated Potassium levels. ??For accurate Potassium quantification in these patients send serum separator tube (gold top) for subsequent determinations. ??Contact the Clinical Chemistry Laboratory if there are any questions. Chloride 102 98 - 107 mmol/L [facility] CO2 23 22 - 31 mmol/L [facility] Anion Gap 14 5 - 15 mmol/L [facility] Calcium 8.2(L) 8.5 - 10.5 mg/dL [facility] Estimated GFR 105 >=60 mL/min/1. 73 m?? [facility] Comment: The eGFR was calculated using the CKD-EPI equation. As with all creatinine based estimates of kidney function, eGFR values calculated with the CKD-EPI equation are not accurate in patients with acute kidney failure, extremes of body mass or the acutely ill. http://[email or web address]/[facility] eGFR 122 >=60 mL/min/1. 73 m?? [facility] Comment: The eGFR was calculated using the CKD-EPI equation. As with all creatinine based estimates of kidney function, eGFR values calculated with the CKD-EPI equation are not accurate in patients with acute kidney failure, extremes of body mass or the acutely ill. [email or web address]/[facility] Blood specimen (specimen) 04/01/2019 5:24 AM EST 04/01/2019 5:52 AM EST Narrative Resulting Agency Comment Spec In Lab Judy Álvarez MD CHEMISTRY ORDER ZAINA [facility] [place] [address] * (ABNORMAL) Hemogram (03/31/2019 10:02 PM EST) WBC 15.4(H) 4.0 - 9.5 x10(3)/[facility] LABORATORY RBC 3.40(L) 4.00 - 5.21 x10(6)/[facility] LABORATORY Hemoglobin 10.9(L) 11.7 - 15.5 gm/dL [facility] Hematocrit 32.3(L) 35.7 - 45.8 % [facility] MCV 95.0(H) 82.6 - 94.4 fL [facility] MCH 32.1(H) 27.1 - 32.0 pg [facility] [facility] MCHC 33.7 31.7 - 35.0 gm/dL [facility] Platelets 254 145 - 357 x10(3)/[facility]ORATORY RDWSD 45.9 37.0 - 46.0 [facility] RDWCV 13.1 11.5 - 14.1 % [facility] MPV 9.7 7.6 - 12.9 [facility] nRBC % Auto 0.0 % [facility] nRBC Abs Auto 0.000 0.000 - 0.000 x10(3)/[facility] Blood specimen (specimen) 03/31/2019 10:02 PM EST 03/31/2019 10:06 PM EST Narrative Resulting Agency Comment Spec In Lab Judy Álvarez MD HEMATOLOGY HALEY GARCIA Performing Organization Address City/State/[facility] Co de Phone Number [facility] [place] [address] * (ABNORMAL) BMP w/fasting Glucose (03/31/2019 6:44 PM EST) Glucose Fasting 158(H) 65 - 99 mg/dL [facility] Comment: ?Fasting* Glucose Interpretive Criteria [...] of Diabetes Mellitus, Position Statement from the [place] [employer]. ??Diabetes Care, Volume 33, Supplement 1, May 2009 BUN 7(L) 8 - 18 mg/dL [facility] Creatinine 0.51(L) 0.70 - 1.20 mg/dL [facility] Sodium 144 135 - 145 mmol/L [facility] Potassium 3.2(L) 3.5 - 5.0 mmol/L [facility] Comment: Please note: ??Patients with WBC >100,000 may have falsely elevated Potassium levels. ??For accurate Potassium quantification in these patients send serum separator tube (gold top) for subsequent determinations. ??Contact the Clinical Chemistry Laboratory if there are any questions. Chloride 109(H) 98 - 107 mmol/L [facility] CO2 22 22 - 31 mmol/L [facility] Anion Gap 13 5 - 15 mmol/L [facility] Calcium 8.2(L) 8.5 - 10.5 mg/dL [facility] Estimated GFR 110 >=60 mL/min/1. 73 m?? [facility] Comment: The eGFR was calculated using the CKD-EPI equation. As with all creatinine based estimates of kidney function, eGFR values calculated with the CKD-EPI equation are not accurate in patients with acute kidney failure, extremes of body mass or the acutely ill. http://byUs.com/[email or web address] eGFR 127 >=60 mL/min/1. 73 m?? [facility] Comment: The eGFR was calculated using the CKD-EPI equation. As with all creatinine based estimates of kidney function, eGFR values calculated with the CKD-EPI equation are not accurate in patients with acute kidney failure, extremes of body mass or the acutely ill. http://byUs.com/[email or web address] Blood specimen (specimen) 03/31/2019 6:44 PM EST 03/31/2019 6:55 PM EST Narrative Resulting Agency Comment Spec In Lab Judy Álvarez MD CHEMISTRY ORDER ZAINA [facility] [place] [address] * Lactate, whole blood, send to lab ([facility] [place] [place]) (03/31/2019 6:44 PM EST) Lactate WB 0.8 0.5 - 2.2 mmol/L [facility] Blood specimen (specimen) 03/31/2019 6:44 PM EST 03/31/2019 6:55 PM EST Narrative Resulting Agency Comment Spec In Lab Judy Álvarez MD CHEMISTRY ORDER ZAINA Performing Organization Address City/State/[facility] Co de Phone Number [facility] [place] [address] * (ABNORMAL) Hemogram (03/31/2019 6:44 PM EST) WBC 14.8(H) 4.0 - 9.5 x10(3)/[facility]AT[facility] RBC 3.46(L) 4.00 - 5.21 x10(6)/[facility] Hemoglobin 11.0(L) 11.7 - 15.5 gm/dL [facility] Hematocrit 33.0(L) 35.7 - 45.8 % [facility] MCV 95.4(H) 82.6 - 94.4 fL [facility] MCH 31.8 27.1 - 32.0 pg [facility] MCHC 33.3 31.7 - 35.0 gm/dL [facility] Platelets 267 145 - 357 x10(3)/[facility] RDWSD 45.4 37.0 - 46.0 [facility] RDWCV 13.0 11.5 - 14.1 % [facility] MPV 9.6 7.6 - 12.9 [facility] nRBC % Auto 0.0 % [facility] nRBC Abs Auto 0.000 0.000 - 0.000 x10(3)/[facility] Blood specimen (specimen) 03/31/2019 6:44 PM EST 03/31/2019 6:55 PM EST Narrative Resulting Agency Comment Spec In Lab Judy Álvarez MD HEMATOLOGY ORDE RABLES [facility] [place] [address] * (ABNORMAL) BLOOD GAS 2 ARTERIAL (03/31/2019 5:42 PM EST) pH Art 7.37 7.35 - 7.45 [facility] pCO2 Art 40 35 - 45 mmHg [facility] pO2 Art 286(H) 85 - 104 mmHg [facility] HCO3 Art 22.7 20.0 - 26.0 mmol/L [facility] BE Art -2.5 -3.0 - 3.0 mmol/L [facility] Hgb Blood Gas 10.6(L) 11.7 - 15.5 gm/dL [facility] O2HB Art 98.6(H) 94.0 - 97.0 % [facility] COHB Art 0.4 % [facility] Comment: Nonsmokers: 0.5-1.5% COHB Smokers: Variable, but usually less than 10% Toxic: 20-30% COHB Lethal: Greater than 60% COHB METHB Art 0.3 <=1.5 % [facility] Na Whole Blood 140 135 - 145 mmol/L [facility] K Whole Blood 3.1(L) 3.5 - 5.0 mmol/L [facility] Comment: Please note: Patients with WBC >100,000 may have falsely elevated Potassium levels. Contact the Clinical Chemistry Laboratory if there are any questions. ICa Whole Blood 1.14(L) 1.15 - 1.33 mmol/L [facility] Comment: Note: ??Total bilirubin higher than 20 mg/dL may lead to falsely low ionized calcium. CL Whole Blood 111(H) 98 - 107 mmol/L [facility] Gluc Whole Bld 143 65 - 199 mg/dL [facility] Comment:Diabetes: >=200 mg/d L plus symptoms. Lactate WB 1.1 0.5 - 2.2 mmol/L [facility] Blood specimen (specimen) 03/31/2019 5:42 PM EST 03/31/2019 5:42 PM EST Judy Álvarez MD CHEMISTRY ORDER ZAINA [facility] [place] [address] * (ABNORMAL) Differential, Automated (03/31/2019 4:30 PM EST) Neutrophils % 77.1 % [facility] Neutr Abs (ANC) 13.23(H) 1.70 - 6.10 x10(3)/[facility] LABORATORY Lymphocytes % 17.6 % [facility] Lymphocytes Abs 3.0 0.9 - 3.2 x10(3)/[facility] Monocytes % 4.1 % [facility] Monocyte Abs 0.7 0.3 - 0.9 x10(3)/[facility] Eosinophils % 0.3 % [facility] Eosinophils Abs 0.1 0.0 - 0.4 x10(3)/[facility] Basophils % 0.4 % [facility] Basophils Abs 0.1 0.0 - 0.1 x10(3)/[facility]OR[facility]ORY Immature Gran % 0.50 % [facility] Comment: Immature granulocytes(IG's)percentage and absolute count will include metamyelocytes, myelocytes, and promyelocytes. Blood smears from CBCs yielding IG's will be scanned manually for concordance. If this scan disagrees with the automated IG or if promyelocytes are noted, a manual differential will be performed. Thea Gran Abs 0.09(H) 0.00 - 0.04 x10(3)/[facility] LABORATORY Blood specimen (specimen) 03/31/2019 4:30 PM EST 03/31/2019 4:32 PM EST Narrative Resulting Agency Comment Spec In Lab Rosita Ayala MD HEMATOLOGY ORDERABLE S [facility] [place] [address] * (ABNORMAL) Hemogram (03/31/2019 4:30 PM EST) WBC 17.2(H) 4.0 - 9.5 x10(3)/[facility]ATORY RBC 3.46(L) 4.00 - 5.21 x10(6)/[facility] Hemoglobin 11.1(L) 11.7 - 15.5 gm/dL [facility] Hematocrit 33.2(L) 35.7 - 45.8 % [facility] Comment: This result has been called to HOSEA WHITTAKER by Jag Harris on 03 31 2019 at 1701, and has been read back. MCV 96.0(H) 82.6 - 94.4 [facility] MCH 32.1(H) 27.1 - 32.0 pg [facility] MCHC 33.4 31.7 - 35.0 gm/dL [facility] Platelets 280 145 - 357 x10(3)/[facility]ORATORY RDWSD 45.8 37.0 - 46.0 [facility] RDWCV 13.1 11.5 - 14.1 % [facility] MPV 9.9 7.6 - 12.9 [facility] nRBC % Auto 0.0 % [facility] nRBC Abs Auto 0.000 0.000 - 0.000 x10(3)/[facility] Blood specimen (specimen) 03/31/2019 4:30 PM EST 03/31/2019 4:32 PM EST Narrative Resulting Agency Comment Spec In Lab Rosita Ayala MD HEMATOLOGY ORDERABLE S [facility] [place] [address] * Fibrinogen (03/31/2019 4:30 PM EST) Fibrinogen 209 200 - 393 mg/dL [facility] Comment: A fibrinogen level >100 mg/dL is adequate for hemostasis in most patients without underlying bleeding disorders. Blood specimen (specimen) 03/31/2019 4:30 PM EST 03/31/2019 4:32 PM EST Narrative Resulting Agency Comment Spec In Lab Judy Álvarez MD HEMATOLOGY ORDTaty GARCIA Performing Organization Address [facility] Co de Phone Number [facility] [place] [address] * (ABNORMAL) APTT (03/31/2019 4:30 PM EST) PTT >160(Crit ical) 25 - 37 sec [facility] Comment: Called by: , Read back by: Hosea Whittaker, Date/Time:03/31/19 17:02. The PTT is NOT appropriate for heparin monitoring. Use the Anti-Xa level for heparin monitoring (HEP UFH) or LMWH monitoring (HEP LMW). A PTT less than 37 seconds generally indicates adequate hemostasis. Blood specimen (specimen) 03/31/2019 4:30 PM EST 03/31/2019 4:32 PM EST Narrative Resulting Agency Comment Spec In Lab Judy Álvarez MD HEMATOLOGY ORDTaty GARCIA Performing Organization Address [facility] Co de Phone Number [facility] [place] [address] * (ABNORMAL) Prothrombin Time (03/31/2019 4:30 PM EST) PT 13.2(H) 9.4 - 12.5 sec [facility] INR 1.1 [facility] Comment: An INR <2.0 [...] Lab Judy Álvarez MD HEMATOLOGY HALEY GARCIA [facility] [place] [address] * (ABNORMAL) BLOOD GAS 2 ARTERIAL (03/31/2019 4:01 PM EST) pH Art 7.34(L) 7.35 - 7.45 [facility] pCO2 Art 45 35 - 45 mmHg [facility] pO2 Art 271(H) 85 - 104 mmHg [facility] HCO3 Art 24.1 20.0 - 26.0 mmol/L [facility] BE Art -1.7 -3.0 - 3.0 mmol/L [facility] Hgb Blood Gas 11.9 11.7 - 15.5 gm/dL [facility] O2HB Art 98.5(H) 94.0 - 97.0 % [facility] COHB Art 0.5 % [facility] Comment: Nonsmokers: 0.5-1.5% COHB Smokers: Variable, but usually less than 10% Toxic: 20-30% COHB Lethal: Greater than 60% COHB METHB Art 0.3 <=1.5 % [facility] Na Whole Blood 140 135 - 145 mmol/L [facility] K Whole Blood 3.3(L) 3.5 - 5.0 mmol/L [facility] Comment: Please note: Patients with WBC >100,000 may have falsely elevated Potassium levels. Contact the Clinical Chemistry Laboratory if there are any questions. ICa Whole Blood 1.15 1.15 - 1.33 mmol/L [facility] Comment: Note: ??Total bilirubin higher than 20 mg/dL may lead to falsely low ionized calcium. CL Whole Blood 110(H) 98 - 107 mmol/L [facility] Gluc Whole Bld 158 65 - 199 mg/dL [facility] Comment:Diabetes: >=200 mg/d L plus symptoms. Lactate WB 1.4 0.5 - 2.2 mmol/L [facility] Blood specimen (specimen) 03/31/2019 4:01 PM EST 03/31/2019 4:01 PM EST Judy Álvarez MD CHEMISTRY ORDER ZAINA Performing Organization Address [facility] [place] [address] * Specimen to Pathology (03/31/2019 1:35 PM EST) AP Specimen 03/31/2019 1:35 PM EST 03/31/2019 1:35 PM EST Narrative [facility] - 03/31/2019 1:35 PM EST Specimen requisition ordered. ??Separate Pathology report to follow Judy Álvarez MD PATHOLOGY/CYTOL OGY ORDERABLES Performing Organization Address [facility] de Phone Number [place] [phone] * Surgical Pathology Report (03/31/2019 1:26 PM EST) [facility] Surgical Pathology Report [id number] ? Location: [facility]; [facility]; A The signing pathologist has (i) examined the relevant preparation(s) for the specimen(s) and (ii) rendered or confirmed the diagnosis(es). . ?Surgical Pathology DIAGNOSIS Lymph node, left groin lymph node, excision: - Benign lymph node with intraparenchymal and intracapsular black pigment, ? see Discussion. Electronically signed by: ??Ángel Garcia MD Verified: ??04/04/2019 ?Dermatopathologis t, Bone & Soft Tissue Pathologist Performed at: ??-[facility] Dept. of Pathology, [place], [place] DISCUSSION This finding could be the [...] Bone & Soft Tissue Pathologist Performed at: ??-[facility] Dept. of Pathology, [place], [place] This intraoperative consultation should be interpreted as a preliminary diagnosis pending review of the entire specimen and special studies, if any. [facility] 03/31/2019 1:26 PM EST Judy Álvarez MD PATHOLOGY/[place] [address] * (ABNORMAL) BLOOD GAS 2 ARTERIAL (03/31/2019 1:13 PM EST) pH Art 7.45 7.35 - 7.45 [facility] pCO2 Art 32(L) 35 - 45 mmHg [facility] pO2 Art 312(H) 85 - 104 mmHg [facility] HCO3 Art 21.3 20.0 - 26.0 mmol/L [facility] BE Art -2.7 -3.0 - 3.0 mmol/L [facility] Hgb Blood Gas 11.4(L) 11.7 - 15.5 gm/dL [facility] O2HB Art 98.1(H) 94.0 - 97.0 % [facility] COHB Art 0.9 % [facility] Comment: Nonsmokers: 0.5-1.5% COHB Smokers: Variable, but usually less than 10% Toxic: 20-30% COHB Lethal: Greater than 60% COHB METHB Art 0.3 <=1.5 % [facility] Na Whole Blood 140 135 - 145 mmol/L [facility] K Whole Blood 2.7(Critic al) 3.5 - 5.0 mmol/L [facility] Comment: Noted by instrumental teacher. Please note: Patients with WBC >100,000 may have falsely elevated Potassium levels. Contact the Clinical Chemistry Laboratory if there are any questions. ICa Whole Blood 1.04(L) 1.15 - 1.33 mmol/L [facility] Comment: Note: ??Total bilirubin higher than 20 mg/dL may lead to falsely low ionized calcium. CL Whole Blood 112(H) 98 - 107 mmol/L [facility] Gluc Whole Bld 138 65 - 199 mg/dL [facility] Comment:Diabetes: >=200 mg/d L plus symptoms. Lactate WB 0.6 0.5 - 2.2 mmol/L [facility] Blood specimen (specimen) 03/31/2019 1:13 PM EST 03/31/2019 1:13 PM EST Judy Álvarez MD CHEMISTRY ORDER ZAINA [facility] [place] [address] * XR Fluoro No Rad <1Hr - OR Use (03/31/2019 12:11 PM EST) Narrative RAD - 03/31/2019 12:17 PM EST This exam is auto-finalizing. No interpretation was done. Judy Álvarez MD IMG FLUORO HALEY GARCIA Performing Organization Address City/[facility] Co de Phone Number [place], [place] * ABORH Recheck Status (03/31/2019 10:13 AM EST) ABORH Type Recheck Completed [facility] Blood specimen (specimen) 03/31/2019 10:13 AM EST 03/31/2019 10:16 AM EST Narrative Resulting Agency Comment Spec In Lab Judy Álvarez MD BLOOD BANK LAB ORDERABLES Performing Organization Address [facility] de Phone Number [facility] [place] [address] * Antibody screen (03/31/2019 10:13 AM EST) Pathologist [facility] Ab Screen Interp Negative [facility] Expires at [id number] on: 04/03/2019 [facility] Blood specimen (specimen) 03/31/2019 10:13 AM EST 03/31/2019 10:16 AM EST Narrative Resulting Agency Comment Spec In Lab Judy Álvarez MD BLOOD BANK LAB ORDERABLES Performing Organization Address City/[facility] Co de Phone Number [facility] [place] [address] * ABO/Rh Typing (03/31/2019 10:13 AM EST) ABORH Type A Pos [facility] Blood specimen (specimen) 03/31/2019 10:13 AM EST 03/31/2019 10:16 AM EST Narrative Resulting Agency Comment Spec In Lab Judy Álvarez MD BLOOD BANK LAB ORDERABLES [facility] [address] [place] [address] documented in this encounter Visit Diagnoses Diagnosis Tobacco abuse Tobacco use disorder Aortoiliac occlusive 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 PAD (peripheral artery disease) Peripheral vascular disease, unspecified documented in this encounter Admitting Diagnoses Diagnosis PAD (peripheral artery disease) Peripheral vascular disease, unspecified documented in this encounter Administered Medications Inactive Administered Medications - up to 3 most recent administrations Medication Order MAR Action Action Date Dose Rate Site acetaminophen (OFIRMEV) injection 1,000 mg 1,000 mg, Intravenous, at 400 mL/hr, Administer over 15 Minutes, EVERY 8 HOURS SCHEDULED, 3 doses, First dose on Sun04/01/19 at 1400, Last dose on Sun04/02/19 at 0600, Maximum dose of acetaminophen is 4000 mg from all sources in 24 hours., Routine, Is ketorolac (Toradol) IV contraindicated? Yes, Can this patient tolerate oral medications or suppositories? No Given 04/02/2019 5:17 AM EST 1,000 mg 400 mL/hr Given 04/01/2019 9:30 PM EST 1,000 mg 400 mL/hr Given 04/01/2019 2:29 PM EST 1,000 mg 400 mL/hr acetaminophen (OFIRMEV) injection 1,000 mg 1,000 mg, Intravenous, at 400 mL/hr, Administer over 15 Minutes, EVERY 8 HOURS SCHEDULED, 3 doses, First dose on Wilda 04/03/19 at 1400, Last dose on Sun04/04/19 at 0600, Maximum dose of acetaminophen is 4000 mg from all sources in 24 hours., Routine, Is ketorolac (Toradol) IV contraindicated? Yes, Can this patient tolerate oral medications or suppositories? No Given 04/03/2019 2:40 PM EST 1,000 mg 400 mL/hr acetaminophen (TYLENOL) tablet 650 mg 650 mg, [...] 10 mg, Oral, DAILY, First dose on Sun04/05/19 at 0900, Until Discontinued, Routine Given 04/05/2019 8:17 AM EST 10 mg aspirin chewable tablet 81 mg 81 mg, Oral, DAILY, First dose on Sun04/05/19 at 0900, Until Discontinued, Routine Given 04/05/2019 8:17 AM EST 81 mg atorvastatin (LIPITOR) tablet 40 mg 40 mg, Oral, EVERY EVENING, First dose on Sun04/04/19 at 2000, Until Discontinued, Routine Given 04/04/2019 9:18 PM EST 40 mg bisacodyl (DULCOLAX) suppository 10 mg 10 mg, Rectal, DAILY PRN, Starting on Sun04/04/19 at 0821, Until Sun04/05/19 at 1741, Constipation, Routine Given 04/04/2019 8:49 AM EST 10 mg bisacodyl (DULCOLAX) suppository 10 mg 10 mg, Rectal, ONCE, 1 dose, On Sun04/05/19 at 0700, Routine Given 04/05/2019 11:26 AM EST 10 mg ceFAZolin (ANCEF) 1g in dextrose 5% 50mL 1 g, Intravenous, EVERY 8 HOURS, 4 doses, First dose on Sun03/31/19 at 1930, Last dose on Sun04/01/19 at 1930, Administer over 30 Minutes, Redose after 4 hours, Recovery (Recovery-Hospital Unit), Indication for (Active or Suspected): Prophylaxis New Bag 04/01/2019 6:37 PM EST 1 g 100 mL/ hr New Bag 04/01/2019 11:24 AM EST 1 g 100 mL/hr New Bag 04/01/2019 4:31 AM EST 1 g 100 mL/hr dextrose 5% and sodium chloride 0.45% with potassium chloride 20 mEq infusion 100 mL/hr, Intravenous, CONTINUOUS, Starting on Sun04/02/19 at 0915, Until Sun04/04/19 at 1642, Warning Vesicant/Irritant Medication New Bag 04/04/2019 12:59 PM EST 100 mL/h r 100 mL/hr New Bag 04/04/2019 2:55 AM EST 100 mL/hr 100 mL/hr New Bag 04/03/2019 4:16 PM EST 100 mL/hr 100 mL/hr fentaNYL (PF) 50mcg/mL injection 12.5-50 mcg, Intravenous, EVERY 1 MIN PRN, Starting on Sun03/31/19 at 1005, Until Sun03/31/19 at 1137, Pain, for epidural placement only, Start dose 25 mcg (Reduce dose to 12.5 mcg if history of sedation sensitivity). Titration dose: 12.5-50 mcg IV (based on patient response) Intravenous (IV), every 3 minutes to maintain procedural pain less than 2 per pain scale. Maximum dose 50mcg per dose, 250mcg/hour., Routine Given 03/31/2019 11:[address] 25 mcg Given 03/31/2019 11:35 AM EST 25 mcg Given 03/31/2019 11:30 AM EST 25 mcg heparin (Porcine) subcutaneous injection 5,000 Units 5,000 [...] Given 04/04/2019 9:17 PM EST 25 mg HYDROmorphone (Dilaudid) 10 mcg/mL, BUpivacaine (Marcaine) 0.1% (0.1 mg/mL) (1/10%) in sodium chloride 0.9% 250 mL epidural Epidural, PCEA Dose: 4 mL, PCEA Frequency: Every 20 minutes New Bag 04/01/2019 11:49 AM EST 8 mL/hr 8 mL/hr Rate/Dose Change 04/01/2019 9:20 AM EST 8 mL/hr 8 mL/hr HYDROmorphone (Dilaudid) 10 mcg/mL, BUpivacaine (Marcaine) 0.1% (0.1 mg/mL) (1/10%) in sodium chloride 0.9% 250 mL epidural Epidural, PCEA Dose: 5 mL, PCEA Frequency: Every 20 minutes New Bag 04/04/2019 6:18 AM EST 10 mL/hr 10 mL/hr New Bag 04/03/2019 10:48 AM EST 10 mL/hr 10 mL/hr New Bag 04/02/2019 7:51 PM EST 10 mL/hr 10 mL/hr HYDROmorphone (Dilaudid) 10 mcg/mL, BUpivacaine (Marcaine) 0.1% (0.1 mg/mL) (1/10%) in sodium chloride 0.9% 250 mL epidural Epidural, PCEA Dose: 3 mL, PCEA Frequency: Every 20 minutes Rate/Dose Change 04/04/2019 12:04 PM EST 3 mL/hr 3 mL/hr Rate/Dose Change 04/04/2019 10:30 AM EST 6 mL/hr 6 mL/h r HYDROmorphone (DILAUDID) injection 0.2 mg 0.2 mg, Epidural, ONCE, 1 dose, On Sun03/31/19 at 1030, Routine Given 03/31/2019 12:06 PM EST 0.2 mg HYDROmorphone (DILAUDID) injection 0.2-0.4 mg 0.2-0.4 mg, Intravenous, EVERY 5 MIN PRN, Starting on Sun03/31/19 at 1822, Until Sun03/31/19 at 2321, Pain, Give 0.2 mg every 5 minutes PRN for mild to moderate pain (1-5) Give 0.4 mg every 5 minutes PRN for moderate to severe pain (6-10). Hold for respiratory rate less than 10 per minute. Maximum dose 4 mg over one hour. If multiple pain medications are ordered, start with hydromorphone or morphine and use fentanyl for breakthrough pain., PACU Recovery, Routine Given 03/31/2019 8:52 PM EST 0.4 mg Given 03/31/2019 8:25 PM EST 0.2 mg Given 03/31/2019 8:14 PM EST 0.4 mg labetalol (NORMODYNE,TRANDATE) 5 mg/mL injection 1 dose, Starting on Sun03/31/19 at 1901, Until Sun03/31/19 at 1904, ALBA ZAZUETA (FLEX): cabinet override labetalol (NORMODYNE,TRANDATE) injection 10 mg 10 mg, Intravenous, EVERY 1 HOUR PRN, Starting on Sun03/31/19 at 1901, Until Sun04/05/19 at 0641, High Blood Pressure, for SBP > 150, hold for HR < 60 for maximum of 2 doses, then sierra LIAO, May repeat 10 mg in 15 minutes once if SBP goal not achieved, Routine Given 04/04/2019 11:25 PM EST 10 mg Given 03/31/2019 8:14 PM EST 10 mg Given 03/31/2019 7:04 PM EST 10 mg lactated ringers infusion 125 mL/hr, Intravenous, CONTINUOUS, Starting on Sun03/31/19 at 1930, Until Sun04/02/19 at 0851 New Bag 04/01/2019 9:17 AM EST 125 mL/hr 125 mL/hr New Bag 04/01/2019 2:22 AM EST 125 mL/hr 125 mL/hr Continued Bag 03/31/2019 11:31 PM EST 125 mL/hr 125 mL/hr lidocaine (LIDODERM) 5 % patch 3 patch [...] Discontinued, Remove lidocaine 5 %(700 mg/patch) patch magnesium sulfate 1g in dextrose 5% 100mL 1 g, Intravenous, ONCE, 1 dose, On Sun04/01/19 at 0815, Administer over 60 Minutes New Bag 04/01/2019 9:06 AM EST 1 g 100 mL/hr midazolam (PF) (VERSED) injection 0.5-2 mg 0.5-2 mg, Intravenous, EVERY 1 MIN PRN, Starting on Sun03/31/19 at 1005, Until Sun03/31/19 at 1137, epidural placement only, Start dose 1 mg (Reduce dose to 0.5 mg if history of sedation sensitivity). Titration dose: 0.5 mg-2 mg IV (based on patient response) Intravenous (IV), every 3 minutes PRN to obtain RASS score of -2. Maximum dose 2 mg per dose, 10 mg/hour., Routine Given 03/31/2019 11:56 AM EST 1 mg Given 03/31/2019 11:35 AM EST 1 mg Given 03/31/2019 11:30 AM EST 1 mg nalbuphine (NUBAIN) 10 mg/mL injection 2 mg 2 mg, Intravenous, EVERY 4 HOURS PRN, Starting on Sun03/31/19 at 1005, Until Sun04/04/19 at 1558, Itching, If not effective, may repeat once after 30 minutes with each 4 hour dosing interval. For itching caused by hydromorphone or fentanyl use nalbuphine first. For itching caused by morphine use diphenhydramine first., Routine Given 04/03/2019 4:18 PM EST 2 mg Given 04/02/2019 4:59 PM EST 2 mg Given 04/02/2019 9:19 AM EST 2 mg nicotine (NICODERM CQ) 21 mg/24 hr patch [...] Routine Given 04/03/2019 6:35 AM EST 1 spray polyethylene glycol (MIRALAX) packet 17 g 17 g, Oral, DAILY, First dose on Sun04/05/19 at 1130, Until Discontinued, Routine Given 04/05/2019 11:25 AM EST 17 g potassium chloride 10 mEq in 100 mL 10 mEq, Intravenous, EVERY 2 HOURS, 2 doses, First dose on Sun03/31/19 at 2345, Last dose on Sun04/01/19 at 0145, Administer over 60 Minutes, -Use only for pateint who is NPO, lacks enteral access, or potassium level less than 2.8 mMol/L -Doses in excess of 40 mEq potassium require re-checking STAT serum potassium level 1.5 hours after completion of last dose and prior to administration of additional doses. Administer each 10 mEq/100 mL dose over 60 minutes. New 04/01/2019 1:34 AM EST 10 mEq 100 mL/hr 04/01/2019 12:11 AM EST 10 mEq 100 mL/hr potassium chloride 10 mEq in 100 mL 10 mEq, Intravenous, EVERY 2 HOURS, 2 doses, First dose (after last modification) on Sun04/01/19 at 0815, Last dose on Sun04/01/19 at 1015, Administer over 60 Minutes, Warning Vesicant/Irritant Medication 04/01/2019 11:18 AM EST 10 mEq 100 mL/hr 04/01/2019 9:06 AM EST 10 mEq 100 mL/hr senna-docusate (PERICOLACE) 8.6-50 mg per tablet 1 [...] on 04/05/19 at 0900, Until Discontinued, Routine 08 (Given - Provider: Mackenzie White RN) atorvastatin (LIPITOR) tablet 40 mg 40 mg, Oral, EVERY EVENING, First dose on Sun04/04/19 at 2000, Until Discontinued, Routine 2117 (Given - Provider: Roxie Barroso RN) bisacodyl (DULCOLAX) suppository 10 mg (COMPLETED) 10 mg, Rectal, ONCE, 1 dose, On Sun04/05/19 at 0700, Routine 1126 (Given - Provider: Ade Mak, SADAF) heparin (Porcine) subcutaneous injection 5,000 Units 5,000 Units, Subcutaneous, EVERY 8 HOURS SCHEDULED, First dose on Sun04/04/19 at 0845, Until Discontinued, Routine 0849 (Given - Provider: Lidia Spangler RN)1400 (Not Given - Provider: Lidia Spangler RN - Reason: See comment - Comment: epidural will come out soon.)2115 (Given - Provider: Roxie Barroso RN) 0617 (Given - Provider: Roxie Barroso RN)1400 (Not Given - Provider: Ade Mak RN - Reason: See comment - Comment: pt d/c) hydroCHLOROthiazide (HYDRODIURIL) tablet 25 mg 25 mg, Oral, DAILY, First dose on Sun04/04/19 at 2000, Until Discontinued, Routine 2116 (Given - Provider: Roxie Barroso RN) 0817 [...] Discontinued, Remove lidocaine 5 %(700 mg/patch) patch 2214 (Patch Removed - Provider: Claribel Dias RN) 221 (Patch Removed - Provider: Roxie Barroso RN) nicotine (NICODERM CQ) 21 mg/24 hr patch 21 mg 21 mg (1 patch), Transdermal, DAILY, First dose on Sun03/31/19 at 2330, Until Discontinued, Routine 921 (Patch Applied - Provider: Lidia Spangler RN) 0849 (Patch Applied - Provider: Lidia Spangler RN) 08 (Patch Applied - Provider: Mackenzie White RN) nicotine (NICODERM CQ) 21 mg/24 hr patch Patch Removal(Linked Group 2) Transdermal, DAILY, First dose on Sun04/02/19 at 0900, Until Discontinued, Remove nicotine 21 mg/24 hr patch 899 (Patch Removed - Provider: Lidia Spangler RN) 899 (Patch Removed - Provider: Lidia Spangler RN) 09 (Patch Removed - Provider: Mackenzie White RN) nicotine (NICODERM CQ) 21 mg/24 hr patch Patch Verification(Linked Group 2) Transdermal, 2 TIMES DAILY, First dose on Sun04/02/19 at 0900, Until Discontinued, Verify nicotine 21 mg/24 hr patch 899 (Patch (dose and location) verified - Provider: Lidia Spangler RN)2099 (Patch (dose and location) verified - Provider: Claribel Dias RN) 09 (Patch (dose and location) verified - Provider: Lidia Spangler RN)2099 (Patch (dose and location) verified - Provider: Roxie Barroso RN) 09 (Patch (dose and location) verified - Provider: Mackenzie White RN) pantoprazole (PROTONIX) injection 40 mg 40 mg, Intravenous, 2 TIMES DAILY, First dose on Sun04/01/19 at 0900, Until Discontinued 921 (Given - Provider: Lidia Spangler RN)2049 (Given - Provider: Claribel Dias RN) 08 (Given - Provider: Lidia Spangler RN)2116 (Given - Provider: Roxie Barroso RN) 818 (Given - Provider: Mackenzie White RN) polyethylene glycol (MIRALAX) packet 17 g 17 g, Oral, DAILY, First dose on Sun04/05/19 at 1130, Until Discontinued, Routine 1125 (Given - Provider: Ade Mak RN) senna-docusate (PERICOLACE) 8.6-50 mg per tablet 1 tablet 1 tablet, Oral, 2 TIMES DAILY, First dose on Sun04/04/19 at 2100, Until Discontinued, Routine 2118 (Given - Provider: Roxie Barroso RN) 0817 (Given - Provider: Mackenzie White RN) Continuous Medication Order 04/03/2019 04/04/2019 04/05/2019 dextrose [...] Intravenous, EVERY 1 HOUR PRN, Starting on Sun03/31/19 at 1901, Until 04/05/19 at 0641, High [...] Intravenous, EVERY 4 HOURS PRN, Starting on Sun03/31/19 at 1005, Until Sun04/04/19 at 1558, Itching, [...] Discontinued documented in this encounter Care Teams Coke Still Cleaner Relationship Specialty Start Date End Date Beena Wilkes, [place]EREE [address] [place] [address] PCP - General Family Medicine 01/13/19 03/02/22 documented as of this encounter
--- OUTSIDE RECORDS SUMMARY | 2023-12-04 01:09 | XMS_ITS | Encounter Summary ---
Author Organization Counts Include [facility] Address [facility] [place] [address] Care Team Providers Care Government Property Inspector Name Role Phone Beena Wilkes APRN Primary Care Provider [phone] Encounter Details Date Type Department Care Team (Late st Contact Info) Description 03/07/2019 10:15 AM EDT [place] [phone] Social History Tobacco Use Types Packs/Day Years [...] on filedocumented in this encounter Care Teams Government Property Inspector Relationship Specialty Start Date End Date Beena Wilkes APRN [address] [place] [address] PCP - General Family Medicine 01/13/19 03/02/22 documented as of this encounter
--- OUTSIDE RECORDS SUMMARY | 2023-12-04 01:09 | XMS_ITS | Encounter Summary ---
Author Organization [facility] Address [facility] [place] [address] Care Team Providers Care Jail Manager Name Role Phone Beena Wilkes APRN Primary Care Provider Encounter Details Date Type Department Care Team (Latest Contact Info) Description 01/28/2019 10:20 AM EDT Clinical [place] [address] PAD (peripheral artery disease) Social [...] Sign Reading Time Taken Comments Blood Pressure - - Pulse 81 01/28/2019 10:17 AM EDT Temperature - - Respiratory Rate - - Oxygen Saturation 98% 01/28/2019 10:17 AM EDT Inhaled Oxygen Concentration - - Weight - - Height - - Body Mass Index - - documented in this encounter Progress Notes * Ju Cruz RN - 01/28/2019 10:20 AM EDT PAT questionnaire reviewed with patient while in Pre Admission testing. Patient reports no problemswith anesthesia in the past. Pre-operative instruction booklet reviewed. Patient verbalizes a good understanding of all information. PLAN Testing: Labs, T+S and EKG done Special medication instructions: n/a Procedure date: 03/07/19 - Dr. Gilbert documented in this encounter Plan of Treatment Not on file documented as of this encounter Procedures Procedure Name Priority Date/Time Associated Diagnosis Comments EKG 12-LEAD Routine 01/28/2019 11:13 AM EDT PAD (peripheral artery disease) documented in this encounter Results * EKG 12 Lead (01/28/2019 11:13 AM EDT) Ventricular rate 69 BPM MUSE SYSTEM Atrial Rate 69 BPM MUSE SYSTEM P-R Interval 178 ms MUSE SYSTEM QRS Duration 126 ms MUSE SYSTEM Q-T Interval 446 ms MUSE SYSTEM QTC Calculated (Bezet) 477 ms MUSE SYSTEM Calculated P [place] 64 degrees MUSE SYSTEM Calculated R [place] 60 degrees MUSE SYSTEM Calculated T [place] -39 degrees MUSE SYSTEM INTERPRETATION Normal sinus rhythm Non-specific intra-ventric ular conduction block Cannot rule out Septal infarct (cited on or before 28-JAN-2019) T wave abnormality, consider inferior ischemia Abnormal ECG When compared with ECG of 05-MAR-2018 07:04, T wave inversion now evident in Inferior leads Confirmed by MD JONAH, ANITHA ([id number]) on 01/28/2019 12:31:54 PM MUSE SYSTEM 01/28/2019 11:1 3 AM EDT 01/28/2019 12:31 PM EDT Judy Gilbert MD ECG ORDERABLES MUSE SYSTEM documented in this encounter Visit Diagnoses Diagnosis PAD (peripheral artery disease) Peripheral vascular disease, unspecified documented in this encounter Care Teams Jail Manager Relationship Specialty Start Date End Date Beena Wilkes, SHEREE [address] [place] [address] PCP - General Family Medicine 01/13/19 03/02/22 documented as of this encounter
--- OUTSIDE RECORDS SUMMARY | 2023-12-04 01:09 | XMS_ITS | Encounter Summary ---
Author Organization [facility] Address [facility] [place] [address] Care Team Providers Care Superintendent Drilling And Production Name Role Phone ChungBeena SHEREE Primary Care Provider [phone] Reason for Visit * Diagnostic Test (Routine) - Closed Specialty Diagnoses / Procedures Referred By Contac t Referred To Contact Radiology Diagnoses PAD (peripheral artery disease) Procedures NM Pharmacologic Stress Myocardial Perfusion Rashawn Dawn MD [facility] [address] [place] [address] Referral ID Status Reason Start Date Expiration Date V isits Requested Visits Authorized [id number] Closed Specialty Service Requested 01/28/2019 01/28/2020 1 1 Encounter Details Date Type Department Care Team (Latest Contact Info) Description 03/06/2019 7:08 AM EDT Hospital Encounter [place] [address] Rashawn Dawn MD [facility] [address] Discharge Disposition: Home Social History [...] this encounter Results * NM Pharmacologic Stress CT Component (03/06/2019 10:57 AM EDT) Anatomical Region Laterality Modality Nuclear Medicine Impressions 03/06/2019 1:54 PM EDT No ischemia or scar. ??Left ventricular function is normal. Thank you for letting us participate in the care of this patient. For questions regarding this report, please contact the number below. ? Electronically signed by: Macario Sheldon [facility] ([phone]), at 03/06/2019 1:54 PM Narrative 03/06/2019 1:54 PM EDT EXAMINATION: NM [...] contact the number below. Electronically signed by: Macario Sheldon [facility]([phone]), at 03/06/2019 1:54 PM Rashawn Dawn MD IMG NM ORDERABLES * NM Pharmacologic Stress Myocardial Perfusion (03/06/2019 9:16 AM EDT) Anatomical Region Laterality Modality Nuclear Medicine Impressions 03/06/2019 1:54 PM EDT No ischemia or scar. ??Left ventricular function is normal. Thank you for letting us participate in the care of this patient. For questions regarding this report, please contact the number below. ? Electronically signed by: Macario Sheldon [facility] ([phone]), at 03/06/2019 1:54 PM Narrative 03/06/2019 1:54 PM EDT EXAMINATION: NM [...] contact the number below. Electronically signed by: Macario Sheldon, [facility]([phone]), at 03/06/2019 1:54 PM Rashawn Dawn MD [facility]LES documented in this encounter Visit Diagnoses Not on filedocumented in this encounter Care Teams Superintendent Drilling And Production Relationship Specialty Start Date End Date Beena Wilkes, CREATIVE SERVICES INTERN [address] [place] [address] PCP - General Family Medicine 01/13/19 03/02/22 documented as of this encounter
--- OUTSIDE RECORDS SUMMARY | 2023-12-04 01:09 | XMS_ITS | Encounter Summary ---
Author Organization [place] [address] Care Team Providers Care Supervisor Baking Name Role Phone Beena Wilkes APRN Primary Care Provider [phone] Encounter Details Date Type Department Care Team (Late st Contact Info) Description 04/03/2019 Telephone [place] [phone] Gris Chisholm Social History Tobacco Use Types Packs/Day Years [...] on filedocumented in this encounter Care Teams Supervisor Baking Relationship Specialty Start Date End Date Beena Wilkes APRN [address] [place] [address] PCP - General Family Medicine 01/13/19 03/02/22 documented as of this encounter
--- OUTSIDE RECORDS SUMMARY | 2023-12-04 01:09 | XMS_ITS | Encounter Summary ---
Author Organization [facility] Address [facility] [place] [address] Care Team Providers Care Canteen Operator Name Role Phone Beena Wilkes APRN Primary Care Provider [phone] Encounter Details Date Type Department Care Team (Latest Contact Info) Description 03/06/2019 7:10 AM EDT - 03/06/2019 11:59 PM EDT Hospital Encounter Non-In[place] [address] Rashawn Dawn MD [facility] [place] [address] PAD (peripheral artery disease) Discharge Disposition: Home [...] Procedure Name Priority Date/Time Associated Diagnosis Comments NUCLEAR PHARMACOLOGIC STRESS CARDIOLOGY Routine 03/06/2019 9:22 AM EDT PAD (peripheral artery disease) documented in this encounter Results * Nuclear Pharmacologic Stress Cardiology (03/06/2019 9:22 AM EDT) Anatomical Region Laterality Modality Other Rashawn Dawn MD CARDIAC SERVICES ORD ERABLES documented in this encounter Visit Diagnoses Diagnosis PAD (peripheral artery disease) Peripheral vascular disease, unspecified documented in this encounter Care Teams Canteen Operator Relationship Specialty Start Date End Date Beena Wilkes, SHEREE [address] [place] [address] PCP - General Family Medicine 01/13/19 03/02/22 documented as of this encounter
--- OUTSIDE RECORDS SUMMARY | 2023-12-04 01:09 | XMS_ITS | Encounter Summary ---
[place] [address] Care Team Providers Care Matcher Operator Name Role Phone Beena Wilkes APRN Primary Care Provider [phone] Encounter Details Date Type Department Care Team (Late st Contact Info) Description 04/01/2019 11:59 PM EST Anesthesia Event [facility] [place] [address] Sebastian Bansal RN Anesthesia Record Procedure Summary Procedure Name Responsible Anesthesiologist Anesthesia Start Time Anesthesia Stop Time Acute Pain Medicine Service (consult) Events No events on file. Meds * Agents No agents on file. * Blood No blood administrations on file. Lines, Drains, and Airways No LDAs on file. documented in this encounter Social History Tobacco [...] on filedocumented in this encounter Care Teams Matcher Operator Relationship Specialty Start Date End Date Beena Wilkes APRN [address] [place] [address] PCP - General Family Medicine 01/13/19 03/02/22 documented as of this encounter
--- OUTSIDE RECORDS SUMMARY | 2023-12-04 01:09 | XMS_ITS | Encounter Summary ---
Author Organization [facility] Address [facility] [place] [address] Care Team Providers Care Acquisition Marketing Manager Name Role Phone KyleBeena cline SHEREE Primary Care Provider [phone] Reason for Referral * Diagnostic Test (Routine) - Closed Specialty Diagnoses / Procedures Referred By Contac t Referred To Contact Radiology Diagnoses PAD (peripheral artery disease) Procedures NM Pharmacologic Stress CT Component Rashawn Dawn MD [facility] [place] [address] [place] [address] Referral ID Status Reason Start Date Expiration Date V isits Requested Visits Authorized [id number] Closed Specialty Service Requested 01/28/2019 01/28/2020 1 1 Reason for Visit * Diagnostic Test (Routine) - Closed Specialty Diagnoses / Procedures Referred By Contac t Referred To Contact Radiology Diagnoses PAD (peripheral artery disease) Procedures NM Pharmacologic Stress CT Component Rashawn Dawn MD [facility] [place] [address] [place] [address] Referral ID Status Reason Start Date Expiration Date V isits Requested Visits Authorized [id number] Closed Specialty Service Requested 01/28/2019 01/28/2020 1 1 Encounter Details Date Type Department Care Team (Latest Contact Info) Description 03/06/2019 7:09 AM EDT Hospital Encounter [place] [phone] Rashawn Dawn MD [facility] [address] PAD (peripheral artery disease) Discharge Disposition: Home [...] Date/Time Associated Diagnosis Comments NM PHARMACOLOGIC STRESS CT COMPONENT Routine 03/06/2019 10:57 AM EDT PAD (peripheral artery disease) documented [...] contact the number below. Rashawn Dawn MD [facility] ORDERABLES documented in this encounter Visit Diagnoses Diagnosis PAD (peripheral artery disease) Peripheral vascular disease, unspecified documented in this encounter Care Teams Acquisition Marketing Manager Relationship Specialty Start Date End Date Arlet Wilkesh, ADULT LITERACY INSTRUCTOR [address] [place] [address] PCP - General Family Medicine 01/13/19 03/02/22 documented as of this encounter
--- OUTSIDE RECORDS SUMMARY | 2023-12-04 01:09 | XMS_ITS | Encounter Summary ---
Author Organization [facility] Address [place] [address] Care Team Providers Care Microsystems Engineer Name Role Phone Beena Wilkes APRN Primary Care Provider [phone] Encounter Details Date Type Department Care Team (Late st Contact Info) Description 03/10/2019 [place] [phone] Rashawn Dawn MD [facility] [place] [address] Social History Tobacco Use Types Packs/Day Years [...] encounter Miscellaneous Notes * Telephone Encounter - Rashawn Dawn MD - 03/10/2019 3:01 PM EDT Called Ms. Farmer to let her know that her stress test was normal. No further cardiac work-up necessary prior to surgery. She should continue aspirin and statin albert-operatively. documented in this encounter Plan of Treatment Not on file documented as of this encounter Visit Diagnoses Not on filedocumented in this encounter Care Teams Microsystems Engineer Relationship Specialty Start Date End Date Beena Wilkes, EXCEL SPECIALIST [address] [facility] [place] [address] PCP - General Family Medicine 01/13/19 03/02/22 documented as of this encounter
--- OUTSIDE RECORDS SUMMARY | 2023-12-04 01:10 | XMS_ITS | Encounter Summary ---
Author Organization [facility] Address [facility] [place] [address] Care Team Providers Care Freezer Operator Name Role Phone Saundra Reddy APRN Primary Care Provider [phone] Reason for Visit * Consultation (Urgent) - Closed Specialty Diagnoses / Procedures Referred By Contwilberto t Referred To Contact Vascular Surgery Diagnoses leg pain renal artery stenosis Saundra Reddy APRN [address] [place] [address] [facility] [address] [address] Referral ID Status Reason Start Date Expiration Date V isits Requested Visits Authorized [id number] Closed Consult, Test & Treat Connection Center 12/31/2017 12/31/2018 2 2 Encounter Details Date Type Department Care Team (Late st Contact Info) Description 01/08/2018 8:30 AM EDT Office [place] [address] Lesley Serrano PA [facility] [place] [id number] Intermittent claudication; Atherosclerosis of seneca-cayuga artery of both lower extremities with intermittent claudication Social History Tobacco Use Types Packs/Day Years Used Date Smoking Tobacco: Every Day Smokeless Tobacco: Never Sex and Gender Information Value Date Recorded Sex Assigned at Not on file Gender Identity Not on file Sexual Orientation Not on file documented as of this encounter Last Filed Vital Signs Vital Sign Reading Time Taken Comments Blood Pressure 161/71 01/08/2018 8:32 AM EDT Pulse 59 01/08/2018 8:31 AM EDT Temperature - - Respiratory Rate - - Oxygen Saturation 100% 01/08/2018 8:31 AM EDT Inhaled Oxygen Concentration - - Weight 44.5 kg (98 lb) 01/08/2018 8:31 AM EDT Height 154.9 cm (5' 1) 01/08/2018 8:31 AM EDT Body Mass Index 18.52 01/08/2018 8:31 AM EDT documented in this encounter Progress Notes * Lesley Serrano PA - 01/08/2018 8:30 AM EDT VASCULAR SURGERY OUTPATIENT NOTE 52 yo female referred to Vascular Surgery for further evaluation and management of LE claudication and hypertension in setting of h/o renal stenting. Patient reports right worse than left proximal thigh, hip and buttock discomfort with short distance amputation and prolonged standing, worse when using stairs or up an incline. Denies rest pain or tissue loss. 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 She has a history of LEFT renal artery stenting in 1997. Not currently on antihypertensives. Has a BP cuff at home however admittedly does not use it. Denies headaches or changes in vision. BPs today in the office R 170/84; L 161/71.No ASA or statin therapy.Current smoker, 1 PPD, has patches at home and is looking to quit on 01/15 (her birthday). PMHx: Patient Active Problem List Diagnosis ??? Hypertension ??? Intermittent claudication ??? History of renal stent PSxHx: No past surgical history on file. Family Hx: No family history on file. Social Hx: Social History Substance Use Topics ??? Smoking status: Current Every Day Smoker ??? Smokeless tobacco: Never Used ??? Alcohol use Not on file Medications: Medications 01/08/18 0852 Medication Sig Taking? Ibuprofen (ADVIL LIQUI-GEL) 200 mg Cap Yes Allergies: No Known Allergies Review of Systems: Constitutional (weight change, fever) - Denies Neuro (dizziness, seizures, numbness, tingling) - Denies Eyes (vision) - Denies Ears, nose, throat (hearing) - Denies Cardiovascular (CP) - Denies Respiratory (SOB) - Denies GI (abd pain, nausea, emesis, blood in stool) - Denies (hematuria, dysuria, frequency) - Denies Muscoloskeletal (extremity pain, weakness) - per HPI Skin (ulcers, rashes) - per HPI All other ROS negative Physical Exam: Vitals: Most Recent Vitals: 01/08/18 0832 BP: 161/71 Pulse: SpO2: PainSc: NAD, pleasant female resting comfortably on exam table NCAT, no carotid bruit noted Non-labored breathing on RA RRR abd soft, nontender, nondistended Absent femoral pulses, feet pink and warm, motor and sensation intact, DP/PT signals b/l Labs/Studies: ABIs (01/02/18): Right ?Pressure (mm Hg) ?? SHA ??Waveform ? Brachial Artery ?180 ? Common Femoral Artery ?Monophasic ?? Popliteal Artery ? Monophasic ?? Dorsalis Pedis (Ankle) Artery ?114 ? 0.63 ??Monophasic ?? Posterior Tibial (Ankle) Artery ??103 ? 0.57 ??Monophasic ?? Left ? Pressure (mm Hg) ?? SHA ??Waveform ? Brachial Artery ?170 ? Common Femoral Artery ?[place]atte- Biphasic ?? Popliteal Artery ? Monophasic ? Dorsalis Pedis (Ankle) Artery ?112 ? 0.62 ??Monophasic ? Posterior Tibial (Ankle) Artery ??101 ? 0.56 ??Monophasic ? Interpretation: RIGHT: ??Moderate lower extremity arterial occlusive disease. LEFT: Moderate lower extremity arterial occlusive disease. Disease Location: ??Aorto-iliac Comparison: ??No previous study in our vascular lab database for comparison. Renal Duplex (01/02/18): Cesia Renal Aorta ?PSV (cm/s): 60 ?EDV (cm/s): 15 Renal Artery Ostium, Right ?PSV (cm/s): 99 ?EDV (cm/s): 22 ?RAR: 1.7 Renal Artery Proximal, Right ?PSV (cm/s): 120 ?EDV (cm/s): 23 ?RAR: 2.0 ?RI: 0.81 Renal Artery Mid, Right ?PSV (cm/s): 177 ?EDV (cm/s): 54 ?RAR: 3.0 ?RI: 0.70 Renal Artery Distal, Right ?PSV (cm/s): 150 ?EDV (cm/s): 46 ?RAR: 2.5 ?RI: 0.70 Mid Pole Renal Parenchyma, Right ?PSV (cm/s): 52 ?EDV (cm/s): 15 ?RI: 0.71 ?AT (ms): 34 Renal Hilum, Right ?AT (ms): 34 Kidney Length, Right ?Length (cm): 9.1 Renal Vein, Right ?Patent: Patent Renal Artery Ostium, Left ?PSV (cm/s): 58 ?EDV (cm/s): 22 ?RAR: 1.0 Renal Artery Proximal, Left ?PSV (cm/s): 98 ?EDV (cm/s): 25 ?RAR: 1.6 ?RI: 0.74 Renal Artery Mid, Left ?PSV (cm/s): 119 ?EDV (cm/s): 39 ?RAR: 2.0 ?RI: 0.68 Renal Artery Distal, Left ?PSV (cm/s): 117 ?EDV (cm/s): 33 ?RAR: 2.0 ?RI: 0.72 Mid Pole Renal Parenchyma, Left ?PSV (cm/s): 69 ?EDV (cm/s): 23 ?RI: 0.67 Renal Hilum, Left ?AT (ms): 40 Kidney Length, Left ?Length (cm): 10.2 Renal Vein, Left ?Patent: Patent Interpretation: Right: Patent main renal artery with no evidence of hemodynamically significant stenosis. Left: Patent stented main renal artery with no evidence of hemodynamically significant stenosis. Comparison: ??No previous study in our vascular lab database for comparison. Assessment/Plan: 52 yo female with hypertension in the setting of left renal stenting; no stenosis by recent duplex. Will recommend a revisit with patient's PCP for further discussion and management of hypertension. Intermittent RIGHT>LEFT claudication, life-style limiting. Will arrange for Cr today and return visit with CTA abd/pelvis runoff and discussion of surgical options with a surgeon. In the interim recommend optimal medical management with ASA 81mg EC daily, statin therapy (will defer to PCP) and smoking cessation (patient committed to quit date of 01/15, adjuncts offered). Ambulation encouraged. All of her questions answered; she is comfortable with this plan moving forward. documented in this encounter Plan of Treatment Scheduled Orders Name Type Priority Associated Diagnoses Orde r Schedule Creatinine Lab Routine Intermittent claudication Expected: 01/08/2018 (Approximate), Expires: 01/08/2019 documented as of this encounter Procedures Procedure Name Priority Date/Time Associated Diagnosis Comments CREATININE Routine 01/08/2018 9:16 AM EDT Atherosclerosis of seneca-cayuga artery of both lower extremities with intermittent claudication documented in this encounter Results * (ABNORMAL) Creatinine (01/08/2018 9:16 AM EDT) Creatinine 0.56(L) 0.70 - 1.20 mg/dL [facility] Estimated GFR 108 >=60 mL/min/1.7 3 m?? [facility] Comment: The eGFR was calculated using the CKD-EPI equation. As with all creatinine based estimates of kidney function, eGFR values calculated with the CKD-EPI equation are not accurate in patients with acute kidney failure, extremes of body mass or the acutely ill. http://[employer]/[facility] eGFR 125 >=60 mL/min/1.7 3 m?? [facility] Comment: The eGFR was calculated using the CKD-EPI equation. As with all creatinine based estimates of kidney function, eGFR values calculated with the CKD-EPI equation are not accurate in patients with acute kidney failure, extremes of body mass or the acutely ill. [email or web address]/[facility] Blood specimen (specimen) 01/08/2018 9:16 AM EDT 01/08/2018 9:25 AM EDT Narrative Resulting Agency Comment Spec In Lab Consuelo Toledo MD CHEMISTRY ORDERABLES [facility] [place] [address] documented in this encounter Visit Diagnoses Diagnosis Intermittent claudication Peripheral vascular disease, unspecified Atherosclerosis of seneca-cayuga artery of both lower extremities with intermittent claudication Atherosclerosis of seneca-cayuga arteries of the extremities with intermittent claudication documented in this encounter Care Teams Freezer Operator Relationship Specialty Start Date End Date Saundra Reddy APRN PCP - General Family Medicine 01/02/18 12/02/18 documented as of this encounter
--- OUTSIDE RECORDS SUMMARY | 2023-12-04 01:10 | XMS_ITS | Encounter Summary ---
Author Organization [facility] [place] [address] Care Team Providers Care Biometrics Head Name Role Phone Saundra Reddy APRN Primary Care Provider [phone] Reason for Visit * Consultation (Urgent) - Closed Specialty Diagnoses / Procedures Referred By Contwilberto t Referred To Contact Vascular Surgery Diagnoses leg pain renal artery stenosis Saundra Reddy APRN [address] [place] [address] [facility] Vascular Lab [address] [place] [address] Referral ID Status Reason Start Date Expiration Date V isits Requested Visits Authorized [id number] Closed Consult, Test & Treat Connection Center 12/31/2017 12/31/2018 2 2 Encounter Details Date Type Department Care Team (Latest Contact Info) Description 01/02/2018 7:49 AM EDT - 01/02/2018 11:59 PM EDT Hospital Encounter [place] [address] [place] Intermittent claudication; History of renal stent Discharge Disposition: Home Social History Tobacco Use Types Packs/Day Years Used Date Smoking Tobacco: Never Assessed Sex and Gender Information Value Date Recorded Sex Assigned at Not on file Gender Identity Not on file Sexual Orientation Not on file documented as of this encounter Medications at Time of Discharge Medication Sig Dispensed Refills Start Date End Date Ibuprofen (ADVIL LIQUI-GEL) 200 mg Cap 03/06/2018 documented as of this encounter Plan of Treatment Not on file documented as of this encounter Procedures Procedure Name Priority Date/Time Associated Diagnosis Comments RENAL DUPLEX COMPLETE Routine 01/02/2018 8:00 AM EDT History of renal stent SHA, LEGS, MULTIPLE LEVELS Routine 01/02/2018 8:00 AM EDT Intermittent claudication documented in this encounter Results * Duplex Study Renal Arteries, Bilat (01/02/2018 8:00 AM EDT) VB Text Report Department: Vascular Surgery Lab Patient: [id number] (EMILIANA FARMER) CPT: 11082 ICD10: Z98.890;I70.1 Referring Physician: PETE GILBERT ?? Phone: Indications: ?? History renal artery stent (suspect left based on today's imaging), HTN ICD10 Diagnosis Code: Z98.890 Findings: Cesia Renal Aorta ? PSV (cm/s): 60 ? EDV (cm/s): 15 Renal Artery Ostium, Right ? PSV (cm/s): 99 ? EDV (cm/s): 22 ? RAR: 1.7 Renal Artery Proximal, Right ? PSV (cm/s): 120 ? EDV (cm/s): 23 ? RAR: 2.0 ? RI: 0.81 Renal Artery Mid, Right ? PSV (cm/s): 177 ? EDV (cm/s): 54 ? RAR: 3.0 ? RI: 0.70 Renal Artery Distal, Right ? PSV (cm/s): 150 ? EDV (cm/s): 46 ? RAR: 2.5 ? RI: 0.70 Mid Pole Renal Parenchyma, Right ? PSV (cm/s): 52 ? EDV (cm/s): 15 ? RI: 0.71 ? AT (ms): 34 Renal Hilum, Right ? AT (ms): 34 Kidney Length, Right ? Length (cm): 9.1 Renal Vein, Right ? Patent: Patent Renal Artery Ostium, Left ? PSV (cm/s): 58 ? EDV (cm/s): 22 ? RAR: 1.0 Renal Artery Proximal, Left ? PSV (cm/s): 98 ? EDV (cm/s): 25 ? RAR: 1.6 ? RI: 0.74 Renal Artery Mid, Left ? PSV (cm/s): 119 ? EDV (cm/s): 39 ? RAR: 2.0 ? RI: 0.68 Renal Artery Distal, Left ? PSV (cm/s): 117 ? EDV (cm/s): 33 ? RAR: 2.0 ? RI: 0.72 Mid Pole Renal Parenchyma, Left ? PSV (cm/s): 69 ? EDV (cm/s): 23 ? RI: 0.67 Renal Hilum, Left ? AT (ms): 40 Kidney Length, Left ? Length (cm): 10.2 Renal Vein, Left ? Patent: Patent Interpretation: Right: Patent main renal artery with no evidence of hemodynamically significant stenosis. Left: Patent stented main renal artery with no evidence of hemodynamically significant stenosis. Comparison: ??No previous study in our vascular lab database for comparison. Electronically Signed by: ANGEL MCCULLOUGH on 2018-01-07 10:05:04 AM [facility] VB Text Report End of Report [facility] 01/02/2018 8:00 AM EDT Pete Gilbert MD VASCULAR ORDERA [facility] VASCUBASE * SHA, legs, multiple levels (01/02/2018 8:00 AM EDT) VB Text Report Department: Vascular Surgery Lab Patient: [id number] (EMILIANA AFRMER) CPT: 89528 ICD10: I70.213;I73.9 Referring Physician: PETE GILBERT ?? Phone: Indications: ??Claudication Diabetes mellitus: No ICD10 Diagnosis Code: I73.9 Findings: Right ?Pressure (mm Hg) ?? SHA ??Waveform ? Brachial Artery ?180 ? Common Femoral Artery ?Monophasic ?? Popliteal Artery ? Monophasic ?? Dorsalis Pedis (Ankle) Artery ?114 ? 0.63 ??Monophasic ?? Posterior Tibial (Ankle) Artery ??103 ? 0.57 ??Monophasic ?? Left ? Pressure (mm Hg) ?? SHA ??Waveform ? Brachial Artery ?170 ? Common Femoral Artery ?[place]-Biphasi c ?? Popliteal Artery ? Monophasic ? Dorsalis Pedis (Ankle) Artery ?112 ? 0.62 ??Monophasic ? Posterior Tibial (Ankle) Artery ??101 ? 0.56 ??Monophasic ? Interpretation : RIGHT: ??Moderate lower extremity arterial occlusive disease. LEFT: Moderate lower extremity arterial occlusive disease. Disease Location: ??Aorto-iliac Comparison: ??No previous study in our vascular lab database for comparison. Electronically Signed by: ANGEL MCCULLOUGH on 2018-01-07 10:00:01 AM [facility] VB Text Report End of Report [facility] 01/02/2018 8:00 AM EDT Pete Gilbert MD VASCULAR ORDERA [facility] Performing Organization Address City/State/[facility] Co de Phone Number [facility] documented in this encounter Visit Diagnoses Diagnosis Intermittent claudication Peripheral vascular disease, unspecified History of renal stent documented in this encounter Care Teams Biometrics Head Relationship Specialty Start Date End Date Saundra Reddy, AGRICULTURAL CONSULTANT PCP - General Family Medicine 01/02/18 12/02/18 documented as of this encounter
--- OUTSIDE RECORDS SUMMARY | 2023-12-04 01:10 | XMS_ITS | Encounter Summary ---
Author Organization [facility] [place] [address] Care Team Providers Care Farmworker [employer] Name Role Phone Saundra Reddy APRN Primary Care Provider [phone] Encounter Details Date Type Department Care Team (Late st Contact Info) Description 02/06/2018 Orders Only [place] [id number] Angela House RN Intermittent claudication Social History Tobacco Use Types Packs/Day Years Used Date Smoking Tobacco: Former Smokeless Tobacco: Never Sex and Gender Information Value Date Recorded Sex Assigned at Not on file Gender Identity Not on file Sexual Orientation Not on file documented as of this encounter Plan of Treatment Scheduled Orders Name Type Priority Associated Diagnoses Orde r Schedule EVG, AORTA/ILIAC ART RPR [id number] ENDOGRAFT; ANEURX Procedures Routine One Time for 1 Occurrences starting 02/06/2018 until 02/06/2018 documented as of this encounter Results * EKG 12 Lead (03/05/2018 7:04 AM EDT) Ventricular rate 72 BPM MUSE SYSTEM Atrial Rate 72 BPM MUSE SYSTEM P-R Interval 170 ms MUSE SYSTEM QRS Duration 116 ms MUSE SYSTEM Q-T Interval 452 ms MUSE SYSTEM QTC Calculated (Bezet) 494 ms MUSE SYSTEM Calculated P [place] 59 degrees MUSE SYSTEM Calculated R [place] 31 degrees MUSE SYSTEM Calculated T [place] 34 degrees MUSE SYSTEM INTERPRETATION Normal sinus rhythm Left bundle branch block Abnormal ECG No previous ECGs available Confirmed by MD CALDERON JOHN ([id number]) on 03/05/2018 8:32:44 AM MUSE SYSTEM 03/05/2018 7:04 AM EDT 03/05/2018 8:32 AM EDT Yves Vegas MD ECG ORDERABLES [facility] SYSTEM documented in this encounter Visit Diagnoses Diagnosis Intermittent claudication Peripheral vascular disease, unspecified documented in this encounter Care Teams Farmworker [employer] Relationship Specialty Start Date End Date Saundra Reddy APRN PCP - General Family Medicine 01/02/18 12/02/18 documented as of this encounter
--- OUTSIDE RECORDS SUMMARY | 2023-12-04 01:10 | XMS_ITS | Encounter Summary ---
Author Organization [facility] [place] [address] Care Team Providers Care Cellar Hand Name Role Phone Saundra Reddy SHEREE Primary Care Provider [phone] Reason for Visit * Auth/Cert Specialty Diagnoses / Procedures Referred By Beverley t Referred To Contact Diagnoses claudication Procedures PRO ENDOVASC REPAIR DEPLOYMENT [id number] ENDOGRAFT 1 Referral ID Status Reason Start Date Expiration Date Visits Re quested Visits Authorized [id number] 1 1 Encounter Details Date Type Department Care Team (Latest Contact Info) Description 03/05/2018 5:26 AM EDT - 03/06/2018 3:08 PM EDT [place] [address] Angel Mccullough MD [facility] [place] [address] Intermittent claudication; History of renal stent; Aortoiliac occlusive disease Discharge Disposition: Home Social History Tobacco Use Types Packs/Day Years Used Date Smoking Tobacco: Former Smokeless Tobacco: Never Sex and Gender Information Value Date Recorded Sex Assigned at Not on file Gender Identity Not on file Sexual Orientation Not on file documented as of this encounter Last Filed Vital Signs Vital Sign Reading Time Taken Comments Blood Pressure 136/76 03/06/2018 1:00 PM EDT Pulse 78 03/05/2018 8:00 PM EDT Temperature 36.8 ??C (98.2 ??F) 03/06/2018 12:08 PM E DT Respiratory Rate 16 03/06/2018 12:08 PM EDT Oxygen Saturation 99% 03/06/2018 12:08 PM EDT Inhaled Oxygen Concentration - - Weight 45.4 kg (100 lb) 03/05/2018 6:51 AM EDT Height 154.9 cm (5' 1) 03/05/2018 6:51 AM EDT Body Mass Index 18.89 03/05/2018 6:51 AM EDT documented in this encounter Discharge Summaries * Angel Treviño MD - 03/06/2018 9:50 AM EDT Inpatient - Discharge Summary Patient Name: Walker Farmer Patient Age: 53 y.o. Birthdate: 1965 Admit date: 03/05/2018 Discharge date and time: 03/06/2018 Attending Physician: Angel Mccullough MD Discharge Diagnoses (Hospital Problems) and Secondary Diagnoses (Chronic Problems): Active Hospital Problems Diagnosis ??? Aortoiliac occlusive disease Resolved Hospital Problems No resolved problems to display. Active Non-Hospital Problems Diagnosis ??? Hypertension ??? Intermittent claudication ??? History of renal stent Operations/Major Procedures: 03/05/2018: Bard Lifestyle 14 x 40 stent in distal- most abdominal aorta, 7 x 59 iCast stent graft in right common iliac artery, 7 x 59 iCast stent graft in left common iliac artery History of Presentation: 53F former smoker (quit Dec, 2017) with hypertension, right renal artery stenosis sp angioplasty [id number], and short distance bilateral buttocks and thigh claudication related to aortoiliac disaese. Pt reports cramping pain in her thighs, right worse than left after walking 50 feet. She had been smoking 1 ppd but quit smoking in Dec of this year. SHA 0.6 bilaterally. No tissue loss or rest pain. No hx of heart attack or stroke. Takes a daily aspirin and moderate dose statin. Of note blood pressure during last clinic visit was in 170s systolic. 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 Hospital Course: In surgery, Failure of percutaneous access in small pulseless left common femoral artery. Access via open exposure of left common femoral artery without difficulty. Heavily calcifiedaortic plaque as predicted by pre-op CT scan. Excellent completion arteriogram. Strong femoral pulses at completion of procedure. Strong Doppler signals in both at completion of procedure. Pt admitted for postop monitoring. Pt's recovery period went well with good PO intake, adequate output following barker removal and pain well controlled with PO meds. Pt ambulates independently, left groin incision remains c/d/i with surgical dressing in place. Pt found to be somewhat hypertensive (to 170's SBP) postop and home dose HCTZ increased to 25mg daily. Pt will follow-up in PCP office. Pt is medically cleared for d/c to home and will follow-up in 1 month with SHA's. BP 136/76 Pulse 78 Temp 36.8 ??C (98.2 ??F) (Temporal) Resp 16 Ht 154.9 cm (5' 1) Wt 45.4 kg (100 lb) LMP 02/02/2018 SpO2 99% BMI 18.89 kg/m?? Important Studies and Lab Data: Studies: 03/06/2018 SHA Findings: Right ?Pressure (mm Hg) ?? SHA ??Waveform ?? Brachial Artery ?179 ? Dorsalis Pedis (Ankle) Artery ?177 ? 0.99 ??Biphasic ?? Posterior Tibial (Ankle) Artery ??190 ? 1.06 ??Biphasic ?? Left ? Pressure (mm Hg) ?? SHA ??Waveform ? Brachial Artery ?175 ? Dorsalis Pedis (Ankle) Artery ?176 ? 0.98 ??Biphasic ? Posterior Tibial (Ankle) Artery ??179 ? 1.00 ??Bi-Triphasic ?? Interpretation: RIGHT: No significant lower extremity arterial occlusive disease identifiable at rest. Normal ankle/brachial pressure ratios and ankle Doppler waveforms. Significant improvement compared to previous exam. LEFT: No significant lower extremity arterial occlusive disease identifiable at rest. Normal ankle/brachial pressure ratios and ankle Doppler waveforms. Significant improvement compared to previous exam. Discharge Conditions/Prognosis: Good Discharge to: Home Discharge Medications: Your Medications New Medications Dose Details acetaminophen 325 mg Tab Commonly known as: TYLENOL Take 2 tablets by mouth every 6 hours as needed for Pain. 650 mg Refills: 0 clopidogrel 75 mg Tab Commonly known as: PLAVIX Take 1 tablet by mouth daily. 75 mg Quantity: 90 tablet Refills: 3 traMADol 50 mg Tab Commonly known as: ULTRAM Take 1 tablet by mouth every 6 hours as needed for Pain. 50 mg Quantity: 12 tablet Refills: 0 Continued medications with new dosing Dose Details hydroCHLOROthiazide 12.5 mg Tab Commonly known as: HYDRODIURIL Take 2 tablets by mouth daily. What changed: how much to take 25 mg Quantity: 90 tablet Refills: 0 Continued medications, unchanged Dose Details aspirin 81 mg Tbec Take 81 mg by mouth daily. 81 mg Refills: 0 atorvastatin 20 mg Tab Commonly known as: LIPITOR Take 20 mg by mouth. 20 mg Refills: 0 nicotine 21 mg/24 hr Pt24 Commonly known as: NICODERM CQ Place 21 patches onto the skin daily. 21 patch Refills: 0 STOPPED Medications ADVIL LIQUI-GEL 200 mg Cap Generic drug: Ibuprofen Updated Allergies/ADRs: Allergies Allergen Reactions ??? Effexor [Venlafaxine] Pt unsure of reaction was 25 years ago ??? Trazodone Pt unsure of reaction was 25 years ago Instructions Given to Patient at Discharge: Patient Instructions Patient Instructions You were admitted on 03/05/2018 after having aortic and iliac artery stents to get more blood flow to your leg. All of this went very well. Dr. Mccullough will want you to be seen in approximately one month with ABIs first. All of this will be ordered and sent to you in the mail. If for some reason youdon't receive this within a week or so please call our office as your followup is very important. Anticoagulation: on Aspirin and new Plavix for at least 30 days Call your doctor if: Any fever, any drainage, redness or separation of your incision, increased pain or change in temperature of your leg Activity level: up as tolerated but take it easy for 2 weeks. No lifting >10# for 4 weeks. Diet: resume your previous regular diet Driving: none right now with pain medication use Shower/Bath: ok to shower and wash all incisions under running water, pat dry. No soaking in a pool/bath/hottub for 2-4 weeks Wound Care: You can remove the dressing in 1-2 days. If the incision is clean and dry it can remainopen to air. You have steri-strips in place that will come of on their own over the next 1-2 weeks.Try not to pick at or help them come off. Your blood pressure was slightly high following surgery and we would like you to follow-up with your Primary Care Physician. We made you an appointment on 03/08/2018 at 8:00AM. For any problems or questions please call [phone] TOR Broussard, milling machinist Nurse Clinician For issues on weeknights after 5pm and weekends please call [phone] and ask for the Vascular Fellow stone rougher. General Instructions None Future Appointments and Orders Future Appointments and Orders Future Appointments Provider Department Dept Phone 04/15/2018 12:30 PM Azucena Evans VT [facility] at [place] Arrive at: Corn Cutter Operator Area 3V [phone] 04/15/2018 1:00 PM Radha Emery APRN [facility] at [place] Arrive at: [facility] Area 3V [phone] Future Orders Complete By Expires SHA, legs, multiple levels [VAS8 Custom] 04/06/2018 (Approximate) 03/06/2019 Process Instructions: There is no in-house vascular oil laboratory analyst available on weeknights (5pm-8am), weekends, or holidays. IF THIS IS A REQUEST FOR AN EMERGENT STUDY DURING THOSE HOURS, please have the senior provider responsible for the patient page the Vascular Surgery Fellow/Senior Resident stone rougher to discuss options. Scheduling Instructions: Questions: Indication for study/signs & symptoms: s/p aortic and iliac stent graft placement Question to be answered: bloodflow to feet Which DH location will this be performed?: [place] Discharge References/Attachments: Discharge References/Attachments None Electronically Signed By: Angel Treviño MD 03/06/2018 documented in this encounter Discharge Instructions * Patient Instructions* Cleo Foster RN - 03/06/2018 1:27 PM EDT Patient Instructions You were admitted on 03/05/2018 after having aortic and iliac artery stents to get more blood flow to your leg. All of this went very well. Dr. Mccullough will want you to be seen in approximately one month with ABIs first. All of this will be ordered and sent to you in the mail. If for some reason youdon't receive this within a week or so please call our office as your followup is very important. Anticoagulation: on Aspirin and new Plavix for at least 30 days Call your doctor if: Any fever, any drainage, redness or separation of your incision, increased pain or change in temperature of your leg Activity level: up as tolerated but take it easy for 2 weeks. No lifting >10# for 4 weeks. Diet: resume your previous regular diet Driving: none right now with pain medication use Shower/Bath: ok to shower and wash all incisions under running water, pat dry. No soaking in a pool/bath/hottub for 2-4 weeks Wound Care: You can remove the dressing in 1-2 days. If the incision is clean and dry it can remainopen to air. You have steri-strips in place that will come of on their own over the next 1-2 weeks.Try not to pick at or help them come off. Your blood pressure was slightly high following surgery and we would like you to follow-up with your Primary Care Physician. We made you an appointment on 03/08/2018 at 8:00AM. For any problems or questions please call [phone] TOR Broussard, milling machinist Nurse Clinician For issues on weeknights after 5pm and weekends please call [phone] and ask for the Vascular Fellow stone rougher. documented in this encounter Medications at Time of Discharge Medication Sig Dispensed Refills Start Date End Date hydroCHLOROthiazide (HYDRODIURIL) 12.5 mg Tablet Take 2 tablets by mouth daily. 90 tablet 03/06/2018 nicotine (NICODERM CQ) 21 mg/[address] 21 patches onto the skin daily. 0 01/16/2018 aspirin 81 mg Tablet, Delayed Release (E.C.) Take 81 mg by mouth daily. acetaminophen (TYLENOL) 325 mg Tablet Take 2 tablets by mouth every 6 hours as needed for Pain. 03/06/2018 01/17/2019 clopidogrel (PLAVIX) 75 mg Tablet Take 1 tablet by mouth daily. 90 tablet 3 03/07/2018 01/17/2019 traMADol (ULTRAM) 50 mg Tablet Take 1 tablet by mouth every 6 hours as needed for Pain. 12 tablet 03/06/2018 04/15/2018 atorvastatin (LIPITOR) 20 mg Tablet Take 20 mg by mouth. 0 01/16/2018 019 documented as of this encounter Progress Notes * Shelli Martin RN - 03/06/2018 3:06 PM EDT Pt d/c to home per md order. Patient AOx4 hrr, lung sounds clear, no n/v sob or chest pain at time of discharge. +bs, voiding clear yellow urine. Patient ambulating independently at this time. Pain well controlled with tylenol. All LDA's removed. All belongings home with patient. Prescriptions sentto pharmacy, all discharge instructions reviewed with patient. All questions answered. Please see flowsheet for full assessment. Shelli Martin RN * Zoran Mcclendon RN - 03/06/2018 6:48 AM EDT MD Team in to see----- * Zoran Mcclendon, RN - 03/06/2018 4:59 AM EDT Sleeping between care--Pain level was acceptable per pt w/current pain med regimen--Good UOP,Barker D/Cd at 0300--Plan is to Ambulate w/Possible D/C to Home in PM * Judy Figueroa MD - 03/05/2018 7:18 PM EDT Surgery Post Op Check Walker Farmer is a 53 y.o. female status post aortic stent and bilat common iliac stents, left DENTAL HYGIENIST MOBILE COORDINATOR cutdown Int Pt seen on pm rounds C/o mild pain at left grin cutdown Feels somewhat fatigued overall Reviewed excellent results in procedure today - pt glad that surgery went well and looks forward towalking tomorrow Strong DP PT signals Feet warm O: Temp: [36.3 ??C (97.3 ??F)-36.8 ??C (98.2 ??F)] Heart Rate: [61-84] Resp: [10-19] BP: (107-179)/(58-97) SpO2: [94 %-100 %] Heart Rate from SPO2: [61 bpm-84 bpm] I/O last 3 completed shifts: In: 1000 [I.V.:1000] Out: 2290 [Urine:2140; Blood:150] No intake/output data recorded. Physical Exam General: NAD, resting comfortably Vascular Exam: Palpable femoral pulses bilat Strong DP PT signals Feet warm Left groin dressing dry except for one very small area of blood (stable in past few hours) Right groin soft, no hematoma AP Walker Farmer is a 53 y.o. female status post aortic stent and bilat common iliac stents, left CFAcutdown. Pt is doing very well overall. She has palpable femoral pulses and strong DP PT signals. Rgroin soft, left groin dressing dry. Barker to be removed at midnight. Pt has received plavix 300 mg load in pacu. Plan for pt to ambulate tomorrow and have ABIs taken now sp stenting. If that all goes well, likely dc to home tomorrow afternoon. Judy Figueroa MD/GLENNY, PGY-5 Section of Vascular Surgery, Pager [phone] Associated attestation - Angel Mccullough MD - 03/11/2018 9:40 PM EDT Vascular Attending I evaluated Walker Farmer post-op, and I found her to be recovering well. Angel Mccullough M.D. Section of Vascular Surgery documented in this encounter H&P Notes * Judy Figueroa MD - 03/05/2018 7:11 AM EDT Vascular Surgery History and Physical HPI: 53F former smoker (quit Dec, 2017) with hypertension, right renal artery stenosis sp angioplasty [id number], and short distance bilateral buttocks and thigh claudication related to aortoiliac disaese. Ptreports cramping pain in her thighs, right worse than left after walking 50 feet. She had been smoking 1 ppd but quit smoking in Dec of this year. SHA 0.6 bilaterally. No tissue loss or rest pain. Nohx of heart attack or stroke. Takes a daily aspirin and moderate dose statin. Of note blood pressure during last clinic visit was in 170s systolic. 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 Review of Systems: General: Denies fevers, chills, night sweats Neuro: Denies lightheadedness, amaurosis, dysarthria, transient weakness or new headaches HEENT: Denies changes in vision, hearing, smell or difficulty swallowing Pulm: Denies shortness of breath, wheezing or cough Card: Denies chest discomfort, palpitations, orthopnea, dyspnea with exersion or claudication GI: Denies nausea, vomiting, constipation, diarrhea, melana or BRBPR : Denies urinary urgency, frequency, dysuria, hematuria Musc: bilat thigh buttocks claudication Endo: Denies heat or cold in tolerance Psych: Denies mood changes or feelings of depression or anxiety PMH Aortoiliac disease Bilateral thigh and buttocks claudication Renal artery stenosis sp bilat renal stents (1997) Prior smoker [facility] Renal angiogram 1997: 1. Successful angioplasty of right renal artery stenosis, probably atherosclerotic in origin. 2. Fibromuscular dysplasia, posterior division left renal artery. Functional Status/Social Hx: Lives w Works at [employer] Smoked 1ppd, quit dec 2017 Drinks 6 beers/night Family Hx: Negative for Thrombosis, Bleeding Disorders Medications: No current facility-administered medications on file prior to encounter. Current Outpatient Medications on File Prior to Encounter Medication Sig Dispense Refill ??? atorvastatin (LIPITOR) 20 mg Tablet Take 20 mg by mouth. 0 ??? hydroCHLOROthiazide (HYDRODIURIL) 12.5 mg Tablet Take 12.5 mg by mouth daily. 0 ??? nicotine (NICODERM CQ) 21 mg/[address] 21 patches onto the skin daily. 0 ??? aspirin 81 mg Tablet, Delayed Release (E.C.) Take 81 mg by mouth daily. ??? Ibuprofen (ADVIL LIQUI-GEL) 200 mg Cap Allergies: Effexor [venlafaxine] and Trazodone Physical Exam: Temp: [37.5 ??C (99.5 ??F)] Heart Rate: [70] Resp: [16] BP: (155)/(74) SpO2: [98 %] Heart Rate from SPO2: -- General: NAD, resting comfortably HEENT: PERRL, anicteric sclerae CVS: Regular rate, no murmurs rubs or gallops Pulm: Clear bilaterally Abd: soft, non tender, non distended Ext: Legs warm Neuro: Grossly nonfocal, moving all extremities. Vascular Exam: Unable to palpate femoral pulses DP PT signals bilat Groins clean Labs: Lab Results Component Value Date CREATININE 0.56 (L) 01/08/2018 Imaging: CTA RIGHT LOWER EXTREMITY Common iliac artery: Severe stenosis at the origin with moderate stenosis in the remainder. External iliac artery: No hemodynamically significant stenosis Internal iliac artery: Atherosclerosis causing moderate stenosis in the proximal segment.. Common femoral artery: Widely patent. Superficial femoral artery: Widely patent. Profundus femoral artery: Widely patent. Popliteal artery: Widely patent. Anterior tibial artery: Widely patent. Tibio-peroneal trunk: Widely patent. Posterior tibial artery: Widely patent. Peroneal artery: Widely patent. Dorsalis pedis: Widely patent. Plantar arteries: Widely patent. ?? LEFT LOWER EXTREMITY Common iliac artery: Distal moderate stenosis External iliac artery: Widely patent. Internal iliac artery: Widely patent. Common femoral artery: Widely patent. Superficial femoral artery: Widely patent. Profundus femoral artery: Widely patent. Popliteal artery: Widely patent. Anterior tibial artery: Widely patent. Tibio-peroneal trunk: Widely patent. Posterior tibial artery: Widely patent. Peroneal artery: Widely patent. Dorsalis pedis: Widely patent. Plantar arteries: Widely patent. SHA Right Pressure (mm Hg) SHA Waveform Brachial Artery 180 Common Femoral Artery Monophasic Popliteal Artery Monophasic Dorsalis Pedis (Ankle) Artery 114 0.63 Monophasic Posterior Tibial (Ankle) Artery 103 0.57 Monophasic Left Pressure (mm Hg) SHA Waveform Brachial Artery 170 Common Femoral Artery Monona-Biphasic Popliteal Artery Monophasic Dorsalis Pedis (Ankle) Artery 112 0.62 Monophasic Posterior Tibial (Ankle) Artery 101 0.56 Monophasic Assessment and Plan: 53F former smoker with hypertension, quite significant aortoiliac disease associated with bilateralthigh/buttocks claudication. No tissue loss. SHA 0.6 bilaterally. Plan for bilateral iliac covered stent and bare metal aortic stent. Possible left brachial access. Risks include bleeding, infection, injury to surrounding structures, hematoma, kidney injury, inability to advance the device considering small iliac diameters, iliac rupture, and need for further intervention. Judy Figueroa MD/GLENNY, PGY-5 Section of Vascular Surgery, Pager [phone] Associated attestation - Angel Mccullough MD - 03/05/2018 7:39 AM EDT Vascular Attending Addendum I interviewed and examined Walker Farmer this morning in the Pre-op area. She reports feeling well, andshe denies chest pain, denies dyspnea. Along with Dr. Figueroa, I reviewed the plan for today, which includes an infrarenal aortic stent, plus bilateral common iliac stent-grafts. Risks of the procedure were explained again, including bleeding, arterial injury, infection, and others. We answered the patient's questions. She expressed understanding and requested that we proceed. Angel Mccullough M.D. Section of Vascular Surgery documented in this encounter Miscellaneous Notes * Op Note - Judy Figueroa MD - 03/05/2018 12:00 PM EDT [facility] Operative Note ?? Patient Name: Walker Farmer : [id number] MR#: [id number] ?? Case Date: 03/05/2018 ?? Surgeon: Surgeon(s) and Role: * Angel Mccullough MD - Primary * Judy Figueroa MD - Resident-Propellant Charge Zone Assembler ?? 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 Procedures: Bard Lifestyle 14 x 40 stent in distal-most abdominal aorta ([id number]) 7 x 59 iCast stent graft in right common iliac artery ([id number]) 7 x 59 iCast stent graft in left common iliac artery (46087) Anesthesia: General ?? Findings: Failure of percutaneous access in small pulseless left common femoral artery Access via open exposure of left common femoral artery without difficulty Heavily calcified aortic plaque as predicted by pre-op CT scan. Excellent completion arteriogram Strong femoral pulses at completion of procedure. Strong Doppler signals in both at completion of procedure ?? Complications: None ?? Estimated Blood Loss: 150 mL ?? Specimens removed during surgery: None Fluids: 1,000 mL crystalloid ?? Heparin: 7,000 units ?? Contrast: 130 mL ?? Protamine: 30 mg ?? Fluoro time: 17.7 minutes ?? Implants: Implant Name Type Inv. Item Serial No. Changeover Operator Lot No. LRB No. Used Action STENT,LSTAR,VASC,[id number],80CM [id number]) - [id number] IMPLANTS STENT,LSTAR,VASC,[id number],80CM ([id number]) ?? [employer]ARD [employer] - CR BARD [id number] N/A 1 Implanted STENT,ICAST,CVR,8X59MM,80CM ([id number]) - [id number] IMPLANTS STENT,ICAST,CVR,8X59MM,80CM [id number]) [id number] [employer] GR ?? N/A 1 Wasted STENT,ICAST,CVR,7X59MM,120CM [id number]) - [id number] IMPLANTS STENT,ICAST,CVR,7X59MM,120CM [id number] [employer] ?? Left 1 Implanted STENT,ICAST,CVR,7X59MM,120CM ([id number]) - [id number] IMPLANTS STENT,ICAST,CVR,7X59MM,120CM [id number] [employer] ?? Right 1 Implanted ? PRBCs: none (See Anesthesia Record/Report for Other Blood Products) Urine Output: 600 mL ?? Drains: None ?? Disposition: PACU ?? Condition: Stable HPI: 53F former smoker (quit Dec, 2017) with hypertension, right renal artery stenosis sp angioplasty [id number], and short distance bilateral buttocks and thigh claudication related to aortoiliac disaese. Ptreports cramping pain in her thighs, right worse than left after walking 50 feet. She had been smoking 1 ppd but quit smoking in Dec of this year. SHA 0.6 bilaterally. No tissue loss or rest pain. Nohx of heart attack or stroke. Takes a daily aspirin and moderate dose statin. Of note blood pressure during last clinic visit was in 170s systolic. 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 CTA shows heavy calcific disease in the infrarenal aorta and common iliacs. When given the option of open vs endo repair, pt strongly preferred endovascular considering shorter recovert. Plan for aortic stent and bilateral common iliac stents. Procedure: After informed consent was obtained the patient was brought back to the operating room and placed supine on the OR table. General anesthesia was induced and the patient was intubated with an ETT. Additional support lines (barker, arterial line, PIVs) were placed. Preoperative antibiotics were given (ancef). Both groins were prepped and draped in the usual sterile fashion. A timeout was performed. Attention was then turned to the patient's left groin. The common femoral artery was accessed under US guidance with a size 18F needle. A cope wire was advanced through the needle. A micropuncture sheath was advanced over the wire. The wire was exchanged for a J-wire which was advanced into the exter nal iliac artery. The sheath was exchanged for a 5 Bahraini sheath. Heparin was given. Using a stiff Glidewire and NTA catheter we were able to cross the lesions in the iliac and infrarenal aorta and advanced the stiff Glidewire into the descending thoracic part of the aorta. We attempted to proceed the same procedure on the left side. An 18 [place]raini needle was used to access the left common femoral artery. However despite multiple attempts at access (with 4 attempts at puncturing the artery), due to the small caliber of the vessel we were unable to successfully advance a [place] wire. Therefore at that point we elected to perform a left common femoral artery cutdown. A 4 cm longitudinal incision was created at the groin overlying the path of the common femoral artery. Subcutaneous tissue was dissected with Bovie electrocautery. There was some moderate amount of hematoma considering the fact that we had just attempted to puncture the artery. The vessel was encountered. Using a fine right angle and Metzenbaum scissors we dissected around the vessel. 2 large vessel loops were used to encircle the common femoral artery proximal and distal. With an 18 Bahraini needle we are able to access the vessel. At this point the micropuncture wire was easily advanced. A micro-sheath was advanced over the wire. Wire was exchanged for a J-wire. Using the stiff Glidewire and NTA catheter were again ableto advance a stiff Glidewire from the left into the descending thoracic aorta. A pigtail catheter was advanced in the right side. A diagnostic aortogram was performed through the pigtail catheter which showed severe aortic calcific disease causing a severe stenosis above the bifurcation. In addition there was bilateral common iliac disease worse on the right than on the left causing severe stenoses in the proximal right common iliac. On each side the stiff glide wires were exchanged for a stiffAmplatz wires through an NTA catheter. The 5 Bahraini sheaths were exchanged for 25 cm 7 Bahraini long sheaths. On the left side a bare-metal 14 x 40 stent was loaded over the Amplatz wire. A repeat aortogram was performed to elfego the aortic bifurcation and the level of disease. The bare- metal stent 14x 40 was deployed in the infrarenal aorta ending distally at the level of the bifurcation. The stent was post dilated with a 10 x 40 balloon. Attention was then turned to placing the common iliac stents. The 7 Bahraini sheaths were advanced into the infrarenal aorta. On each side an iCAST 7 x 59 was advanced over the Amplatz wire. The iCAST were deployed at the same time with approximately 1.5 cm of stent extending into the infrarenal aorta (into the bare-metal stent that had just been placed). Of note the hypogastric arteries had been marked prior to placing the stents such that the stents were deployed well above the hypo takeoffs. The stents were deployed simultaneously with balloons expanded to 12 davion. The patient remained hemodynamically stable during the stent placement. This balloonswere then removed and a completion angiogram was performed which showed a widely patent aorta and excellent runoff into the common iliacs. The external and internals remained nicely patent. There rashard area of mild stenosis that remained in the distal aorta at the area of severe calcific disease. The angiogram was repeated in 30 degrees of ELIDA and 30 degrees of MESSINA to confirm that this was not asignificant stenosis and it was the area of the very calcified plaque. Repeat angioplasty was performed via the right side with a 12 mm diameter balloon to ensure that the proximal aspect of the stent was abutting the aortic wall. However we did not re-intervene on the proximal iliac stents as the area where there was a mild aortic stenosis was in the area of a very hard rocklike plaque that likely would not resolve with further angioplasty. Moreover repeat angioplasty in this area of calcific disease would expose the patient to risk of rupture and therefore it was deemed that the risk would outweigh the benefit. At this point we were very satisfied with the patency of the newly placed stents. On the left side two angled ductus clamps were placed above and below the sheath. The wire and the sheath were then removed. The arteriotomy was closed with 4 interrupted 6-0 Prolene sutures. Thrombin Gelfoam was used for hemostasis. The subcutaneous tissue was closed with 2 layers of 3-0 Vicryl. The skin was closed with Monocryl and Steri-Strips. The wound was dressed with a dry gauze and a Tegaderm. On the right side the wire and the sheath were removed. Manual pressure was held for 20 minutes. There was no hematoma. Following the case the patient had excellent DP and PT signals bilaterally. The instrument counts were correct. The patient was awoken and taken to recovery in stable condition. Dr. Mccullough was present for the entire operation. Infection Bundle used? Pre-incision cefazolin, chlorhexidine prep, Ioban skin protector. ?? Associated attestation - Angel Mccullough MD - 03/11/2018 9:38 PM EDT Attestation: Case Date: 03/05/2018 I participated in Corinne Farmer's operation from start to finish, and I supervised Dr. Figueroa throughout. ANGEL MCCULLOUGH MD 03/11/2018 * Brief Op Note - Angel Mccullough MD - 03/05/2018 11:19 AM EDT Brief Operative Note Patient Name: Walker Farmer : [id number] MR#: [id number] Case Date: 03/05/2018 Surgeon: Surgeon(s) and Role: * Angel Mccullough MD - Primary * Judy Figueroa MD - Resident-Propellant Charge Zone Assembler Preoperative diagnosis: Nearly occlusive abdominal aortic and common iliac plaque causing bilateralintermittent claudication Postoperative diagnosis: Nearly occlusive abdominal aortic and common iliac plaque causing bilateral intermittent claudication Procedures: Bard Lifestyle 14 x 40 stent in distal-most abdominal aorta ([id number]) 7 x 59 iCast stent graft in right common iliac artery ([id number]) 7 x 59 iCast stent graft in left common iliac artery ([id number]) Anesthesia: General Findings: Failure of percutaneous access in small pulseless left common femoral artery Access via open exposure of left common femoral artery without difficulty Heavily calcified aortic plaque as predicted by pre-op CT scan. Excellent completion arteriogram Strong femoral pulses at completion of procedure. Strong Doppler signals in both at completion of procedure Complications: None Estimated Blood Loss: 150 mL Specimens removed during surgery: None Fluids: 1,000 mL crystalloid Heparin: 7,000 units Contrast: 130 mL Protamine: 30 mg Fluoro time: 17.7 minutes Implants: Implant Name Type Inv. Item Serial No. Changeover Operator Lot No. LRB No. Used Action STENT,LSTAR,VASC,[id number],80CM ([id number]) - [id number] IMPLANTS STENT,LSTAR,VASC,[id number],80CM ([id number]) [employer] - CR BARD [id number] N/A 1 Implanted STENT,ICAST,CVR,8X59MM,80CM ([id number]) - [id number] IMPLANTS STENT,ICAST,CVR,8X59MM,80CM ([id number]) [id number] [employer] N/A 1 Wasted STENT,ICAST,CVR,7X59MM,120CM ([id number]) - [id number] IMPLANTS STENT,ICAST,CVR,7X59MM,120CM [id number] [employer] Left 1 Implanted STENT,ICAST,CVR,7X59MM,120CM ([id number]) - [id number] IMPLANTS STENT,ICAST,CVR,7X59MM,120CM ([id number] [employer] Right 1 Implanted PRBCs: none (See Anesthesia Record/Report for Other Blood Products) Urine Output: 600 mL Drains: None Disposition: PACU Condition: Stable Infection Bundle used? Pre-incision cefazolin, chlorhexidine prep, Ioban skin protector. Angel Mccullough M.D. Section of Vascular Surgery documented in this encounter Plan of Treatment Not on file documented as of this encounter Procedures Procedure Name Priority Date/Time Associated Diagnosis Comments SHA, LEGS, MULTIPLE LEVELS Routine 03/06/2018 6:31 AM EDT Aortoiliac occlusive disease Intermittent claudication DIFFERENTIAL, MANUAL Routine 03/06/2018 4:40 AM EDT HEMOGRAM Routine 03/06/2018 4:40 AM EDT CBC (WITH DIFF) Routine 03/06/2018 4:40 AM EDT BASIC METABOLIC PANEL (NON-FASTING) Routine 03/06/2018 4:40 AM EDT REVSC OPN\PRQ ILIAC ART W\STNT & ANGIOP EA IPSILATERAL VSL-BL Routine 03/05/2018 11:32 AM EDT REVSC OPN\PRQ ILIAC ART W\STNT PLMT & ANGIOP SAME VSL BILAT Routine 03/05/2018 11:32 AM EDT TRANSCATH PLACEMENT INTRAVASCULAR STENT, OPN/PERQ, INITIAL ARTERY, S&I Routine 03/05/2018 11:32 AM EDT IR OR VASC ANGIOGRAM IMAGE STORAGE ONLY Routine 03/05/2018 8:45 AM EDT BLOOD GAS 2 ARTERIAL Routine 03/05/2018 8:43 AM EDT REVSC OPN\PRQ ILIAC ART W\STNT & ANGIOP EA IPSILATERAL VSL-ALEX (WRVU 4.25) 03/05/2018 7:35 AM EDT claudication REVSC OPN\PRQ ILIAC ART W\STNT PLMT & ANGIOP SAME VSL BILAT (WRVU 9.75) 03/05/2018 7:35 AM EDT claudication TRANSCATH PLACEMENT INTRAVASCULAR STENT, OPN/PERQ, INITIAL ARTERY, S&I (WRVU 8.75) 03/05/2018 7:35 AM EDT claudication EKG 12-LEAD Routine 03/05/2018 7:04 AM EDT Intermittent claudication ABORH RECHECK STATUS Routine 03/05/2018 6:42 AM EDT HEMOGRAM Routine 03/05/2018 6:42 AM EDT DIFFERENTIAL, AUTOMATED Routine 03/05/2018 6:42 AM EDT ABO/RH TYPING Routine 03/05/2018 6:42 AM EDT CBC (WITH DIFF) Routine 03/05/2018 6:42 AM EDT ANTIBODY SCREEN Routine 03/05/2018 6:42 AM EDT TYPE AND SCREEN ([facility]/CGP/INDIGO) Routine 03/05/2018 6:42 AM EDT BASIC METABOLIC PANEL (NON-FASTING) Routine 03/05/2018 6:42 AM EDT MACHINE SIGN WRITER SCAN 03/05/2018 12:00 AM EDT IMPLANTABLE DEVICES SCAN 03/05/2017 12:00 AM EDT documented in this encounter Results * SHA, legs, multiple levels (04/15/2018 12:17 PM EST) VB Text Report Department: Vascular Surgery Lab Patient: [id number] (WALKER FARMER) CPT: 74298 ICD10: I73.9;I74.09 Referring Physician: ANGEL MCCULLOUGH ?? Indications: f/u bilateral iliac stents Diabetes mellitus: no ICD10 Diagnosis Code: I73.9, I74.09 Findings: Right ?Pressure (mm Hg) ?? SHA ??Waveform ?? Brachial Artery ?175 ? Dorsalis Pedis (Ankle) Artery ?176 ? 0.99 ??Triphasic ?? Posterior Tibial (Ankle) Artery ??174 ? 0.98 ??Triphasic ?? Left ? Pressure (mm Hg) ?? SHA ??Waveform ?? Brachial Artery ?178 ? Dorsalis Pedis (Ankle) Artery ?179 ? 1.01 ??Triphasic ?? Posterior Tibial (Ankle) Artery ??176 ? 0.99 ??Triphasic ?? Interpretation: RIGHT: No significant lower [...] ? ---- ??0.99(+.36) 1.06(+.49) ---- ? ---- Current ? 0.99( .00) 0.98(-.08) ---- ? ---- Date ?LEFT DP ?LEFT PT ?LT GR TOE LT Sec TOE ??0.62 ? 0.56 ? ---- ? ---- ??0.98(+.36) 1.00(+.44) ---- ? ---- Current ? 1.01(+.03) 0.99(-.01) ---- ? ---- Electronically Signed by: ANGEL MCCULLOUGH on 2018-04-15 01:42:40 PM VASCUBASE VB Text Report End of Report VASCUBASE 04/15/2018 12:1 7 PM EST Angel Mccullough MD VASCULAR ORDERABLES VASCUBASE * SHA, legs, multiple levels (03/06/2018 6:31 AM EDT) VB Text Report Department: Vascular Surgery Lab Patient: [id number] (SMOOTH WALKER) CPT: 34417 ICD10: I74.09;I73.9 Referring Physician: ANGEL MCCULLOUGH ?? Indications: s/p aortic and bilateral iliac stents Diabetes mellitus: no ICD10 Diagnosis Code: I74.09, I73.9 Findings: Right ?Pressure (mm Hg) ?? SHA ??Waveform ?? Brachial Artery ?179 ? Dorsalis Pedis (Ankle) Artery ?177 ? 0.99 ??Biphasic ?? Posterior Tibial (Ankle) Artery ??190 ? 1.06 ??Biphasic ?? Left ? Pressure (mm Hg) ?? SHA ??Waveform ? Brachial Artery ?175 ? Dorsalis Pedis (Ankle) Artery ?176 ? 0.98 ??Biphasic ? Posterior Tibial (Ankle) Artery ??179 ? 1.00 ??Bi-Triphasic ?? Interpretation: RIGHT: No significant lower extremity arterial occlusive disease identifiable at rest. Normal ankle/brachial pressure ratios and ankle Doppler waveforms. Significant improvement compared to previous exam. LEFT: No significant lower extremity arterial occlusive disease identifiable at rest. Normal ankle/brachial pressure ratios and ankle Doppler waveforms. Significant improvement compared to previous exam. Previous ABIs with change from previous value: Date ?RIGHT DP ?? RIGHT PT ?? RT GR TOE ??RT Sec TOE ??0.63 ? 0.57 ? ---- ? ---- Current ? 0.99(+.36) 1.06(+.49) ---- ? ---- Date ?LEFT DP ?LEFT PT ?LT GR TOE LT Sec TOE ??0.62 ? 0.56 ? ---- ? ---- Current ? 0.98(+.36) 1.00(+.44) ---- ? ---- Electronically Signed by: ANGEL MCCULLOUGH on 2018-03-10 05:46:58 PM VASCUBASE VB Text Report End of Report VASCUBASE 03/06/2018 6:31 AM EDT Angel Mccullough MD VASCULAR ORDERABLES VASCUBASE * (ABNORMAL) Differential, Manual (03/06/2018 4:40 AM EDT) Neutrophil % 81 % [facility] Lymphocyte % 17 % [facility] Monocyte % 2 % [facility] Neutrophil Abs 11.9(H) 1.5 - 6.3 x10(3)/[facility] Neutr Abs (ANC) 11.91(H) 1.70 - 6.10 x10(3)/[facility] Lymphocyte Abs 2.5 1.0 - 3.6 x10(3)/[facility] Monocyte Abs 0.3 0.2 - 1.0 x10(3)/[facility] Tot Diff Cell Ct 100 [facility] Plat Estimate Normal [facility] RBC Morphology Normal [facility] Hyperseg Neutro Present [facility] Blood specimen (specimen) 03/06/2018 4:40 AM EDT 03/06/2018 4:46 AM EDT Narrative Resulting Agency Comment Spec In Lab Judy Figueroa MD HEMATOLOGY ORDERABLE S [facility] [place] [address] * (ABNORMAL) Hemogram (03/06/2018 4:40 AM EDT) WBC 14.7(H) 4.0 - 9.5 x10(3)/[facility] LABORAT[facility] RBC 3.43(L) 4.00 - 5.21 x10(6)/[facility] Hemoglobin 11.1(L) 11.7 - 15.5 gm/dL [facility] Hematocrit 32.4(L) 35.7 - 45.8 % [facility] MCV 94.5(H) 82.6 - 94.4 [facility] MCH 32.4(H) 27.1 - 32.0 pg [facility] MCHC 34.3 31.7 - 35.0 gm/dL [facility] Platelets 236 145 - 357 x10(3)/[facility] LABORATORY RDWSD 44.4 37.0 - 46.0 [facility] RDWCV 13.0 11.5 - 14.1 % [facility] MPV 9.7 7.6 - 12.9 [facility] nRBC % Auto 0.0 % [facility] nRBC Abs Auto 0.000 0.000 - 0.000 x10(3)/[facility] Blood specimen (specimen) 03/06/2018 4:40 AM EDT 03/06/2018 4:46 AM EDT Narrative Resulting Agency Comment Spec In Lab Judy Figueroa MD HEMATOLOGY ORDERABLE S Performing Organization Address City/[facility]/ZIP Co de Phone Number [facility] [place] [address] * (ABNORMAL) Basic Metabolic Panel (non-fasting) (03/06/2018 4:40 AM EDT) Glucose Lvl 126 65 - 199 mg/dL [facility] Comment:Diabetes: >=200 mg/d L plus symptoms BUN 8 8 - 18 mg/dL [facility] Creatinine 0.53(L) 0.70 - 1.20 mg/dL [facility] Sodium 137 135 - 145 mmol/L [facility] Potassium 4.1 3.5 - 5.0 mmol/L [facility] Comment: Please note: ??Patients with WBC >100,000 may have falsely elevated Potassium levels. ??For accurate Potassium quantification in these patients send serum separator tube (gold top) for subsequent determinations. ??Contact the Clinical Chemistry Laboratory if there are any questions. Chloride 104 98 - 107 mmol/L [facility] CO2 25 22 - 31 mmol/L [facility] Anion Gap 8 5 - 15 mmol/L [facility] Calcium 8.5 8.5 - 10.5 mg/dL [facility] Estimated GFR 109 >=60 mL/min/1. 73 m?? [facility] Comment: The eGFR was calculated using the CKD-EPI equation. As with all creatinine based estimates of kidney function, eGFR values calculated with the CKD-EPI equation are not accurate in patients with acute kidney failure, extremes of body mass or the acutely ill. [email or web address] eGFR 127 >=60 mL/min/1. 73 m?? [facility] Comment: The eGFR was calculated using the CKD-EPI equation. As with all creatinine based estimates of kidney function, eGFR values calculated with the CKD-EPI equation are not accurate in patients with acute kidney failure, extremes of body mass or the acutely ill. [email or web address] Blood specimen (specimen) 03/06/2018 4:40 AM EDT 03/06/2018 4:46 AM EDT Narrative Resulting Agency Comment Spec In Lab Angel Mccullough MD CHEMISTRY ORDERABLES [facility] [place] [address] * IR OR VASC Aniogram Image Storage Only (03/05/2018 8:45 AM EDT) Narrative RAD - 03/05/2018 8:45 AM EDT This exam is for storage only and is auto-finalizing. Angel Mccullough MD IMG FILM LIBRARY ORD ERABLES Performing Organization Address City/[facility]/ZIP Co de Phone Number [place], [place] * (ABNORMAL) BLOOD GAS 2 ARTERIAL (03/05/2018 8:43 AM EDT) pH Art 7.49(H) 7.35 - 7.45 [facility] pCO2 Art 32(L) 35 - 45 mmHg [facility] pO2 Art 276(H) 85 - 104 mmHg [facility] HCO3 Art 24.0 20.0 - 26.0 mmol/L [facility] BE Art 0.6 -3.0 - 3.0 mmol/L [facility] Hgb Blood Gas 12.7 11.7 - 15.5 gm/dL [facility] O2HB Art 98.2(H) 94.0 - 97.0 % [facility] COHB Art 0.8 % [facility] Comment: Nonsmokers: 0.5-1.5% COHB Smokers: Variable, but usually less than 10% Toxic: 20-30% COHB Lethal: Greater than 60% COHB METHB Art 0.3 <=1.5 % [facility] Na Whole Blood 138 135 - 145 mmol/L [facility] K Whole Blood 3.6 3.5 - 5.0 mmol/L [facility] Comment: Please note: Patients with WBC >100,000 may have falsely elevated Potassium levels. Contact the Clinical Chemistry Laboratory if there are any questions. ICa Whole Blood 1.12(L) 1.15 - 1.33 mmol/L [facility] Comment: Note: ??Total bilirubin higher than 20 mg/dL may lead to falsely low ionized calcium. CL Whole Blood 106 98 - 107 mmol/L [facility] Gluc Whole Bld 159 65 - 199 mg/dL [facility] Comment:Diabetes: >=200 mg/d L plus symptoms. Lactate WB 1.8 0.5 - 2.2 mmol/L [facility] Blood specimen (specimen) 03/05/2018 8:43 AM EDT 03/05/2018 8:43 AM EDT Angel Mccullough MD CHEMISTRY ORDERABLES Performing Organization Address [facility] Co de Phone Number [facility] [place] [address] * EKG 12 Lead (03/05/2018 7:04 AM EDT) Ventricular rate 72 BPM MUSE SYSTEM Atrial Rate 72 BPM MUSE SYSTEM P-R Interval 170 ms MUSE SYSTEM QRS Duration 116 ms MUSE SYSTEM Q-T Interval 452 ms MUSE SYSTEM QTC Calculated (Bezet) 494 ms MUSE SYSTEM Calculated P [place] 59 degrees MUSE SYSTEM Calculated R [place] 31 degrees MUSE SYSTEM Calculated T [place] 34 degrees MUSE SYSTEM INTERPRETATION Normal sinus rhythm Left bundle branch block Abnormal ECG No previous ECGs available Confirmed by MD CALDERON JOHN ([id number]) on 03/05/2018 8:32:44 AM MUSE SYSTEM 03/05/2018 7:04 AM EDT 03/05/2018 8:32 AM EDT Angel Mccullough MD ECG ORDERABLES Performing Organization Address City/[facility]/ZIP Co de Phone Number MUSE SYSTEM * ABORH Recheck Status (03/05/2018 6:42 AM EDT) ABORH Recheck Order Order Placed [facility] ABORH Type Recheck Complete [facility] Blood specimen (specimen) 03/05/2018 6:42 AM EDT 03/05/2018 6:46 AM EDT Narrative Resulting Agency Comment Spec In Lab Laura Romo MD BLOOD BANK L AB ORDERABLES Performing Organization Address City/[facility]/ZIP Co de Phone Number [facility] [place] [address] * Antibody screen (03/05/2018 6:42 AM EDT) Ab Screen Interp Negative [facility] Expires at [id number] on: 03/08/2018 [facility] Blood specimen (specimen) 03/05/2018 6:42 AM EDT 03/05/2018 6:46 AM EDT Narrative Resulting Agency Comment Spec In Lab Laura Romo MD BLOOD BANK L AB ORDERABLES Performing Organization Address [facility] Co de Phone Number [facility] [place] [address] * ABO/Rh Typing (03/05/2018 6:42 AM EDT) ABORH Type A Pos [facility] Blood specimen (specimen) 03/05/2018 6:42 AM EDT 03/05/2018 6:46 AM EDT Narrative Resulting Agency Comment Spec In Lab Laura Romo MD BLOOD BANK L AB ORDERABLES Performing Organization Address [facility]/ZIP Co de Phone Number [facility] [place] [address] * (ABNORMAL) Differential, Automated (03/05/2018 6:42 AM EDT) Neutrophils % 70.6 % [facility] Neutr Abs (ANC) 8.01(H) 1.70 - 6.10 x10(3)/mc L [facility] Lymphocytes % 22.8 % [facility] Lymphocytes Abs 2.6 0.9 - 3.2 x10(3)/mc L [facility] Monocytes % 4.3 % [facility] Monocyte Abs 0.5 0.3 - 0.9 x10(3)/[facility] Eosinophils % 1.6 % [facility] Eosinophils Abs 0.2 0.0 - 0.4 x10(3)/[facility] Basophils % 0.4 % [facility] Basophils Abs 0.0 0.0 - 0.1 x10(3)/[facility] Immature Gran % 0.30 % [facility] Comment: Immature granulocytes(IG's)percentage and absolute count will include metamyelocytes, myelocytes, and promyelocytes. Blood smears from CBCs yielding IG's will be scanned manually for concordance. If this scan disagrees with the automated IG or if promyelocytes are noted, a manual differential will be performed. Thea Gran Abs 0.03 0.00 - 0.04 x10(3)/[facility] Blood specimen (specimen) 03/05/2018 6:42 AM EDT 03/05/2018 6:58 AM EDT Narrative Resulting Agency Comment Spec In Lab Laura Romo MD HEMATOLOGY O RDERABLES [facility] [place] [address] * (ABNORMAL) Hemogram (03/05/2018 6:42 AM EDT) WBC 11.3(H) 4.0 - 9.5 x10(3)/[facility] LABOR[facility] RBC 4.01 4.00 - 5.21 x10(6)/[facility] Hemoglobin 12.8 11.7 - 15.5 gm/dL [facility] Hematocrit 38.3 35.7 - 45.8 % [facility] MCV 95.5(H) 82.6 - 94.4 fL [facility] MCH 31.9 27.1 - 32.0 pg [facility] MCHC 33.4 31.7 - 35.0 gm/dL [facility] Platelets 285 145 - 357 x10(3)/[facility] LABORATORY RDWSD 45.1 37.0 - 46.0 [facility] RDWCV 12.8 11.5 - 14.1 % [facility] MPV 9.8 7.6 - 12.9 [facility] nRBC % Auto 0.0 % [facility] nRBC Abs Auto 0.000 0.000 - 0.000 x10(3)/[facility] Blood specimen (specimen) 03/05/2018 6:42 AM EDT 03/05/2018 6:58 AM EDT Narrative Resulting Agency Comment Spec In Lab Laura Romo MD HEMATOLOGY O RDERABLES [facility] [place] [address] * (ABNORMAL) Basic Metabolic Panel (non-fasting) (03/05/2018 6:42 AM EDT) Glucose Lvl 128 65 - 199 mg/dL [facility] Comment:Diabetes: >=200 mg/d L plus symptoms BUN 13 8 - 18 mg/dL [facility] Creatinine 0.60(L) 0.70 - 1.20 mg/dL [facility] Sodium 142 135 - 145 mmol/L [facility] Potassium 4.3 3.5 - 5.0 mmol/L [facility] Comment: Please note: ??Patients with WBC >100,000 may have falsely elevated Potassium levels. ??For accurate Potassium quantification in these patients send serum separator tube (gold top) for subsequent determinations. ??Contact the Clinical Chemistry Laboratory if there are any questions. Chloride 103 98 - 107 mmol/L [facility] CO2 27 22 - 31 mmol/L [facility] Anion Gap 12 5 - 15 mmol/L [facility] Calcium 9.1 8.5 - 10.5 mg/dL [facility] Estimated GFR 105 >=60 mL/min/1. 73 m?? [facility] Comment: The eGFR was calculated using the CKD-EPI equation. As with all creatinine based estimates of kidney function, eGFR values calculated with the CKD-EPI equation are not accurate in patients with acute kidney failure, extremes of body mass or the acutely ill. [email or web address] eGFR 121 >=60 mL/min/1. 73 m?? [facility] Comment: The eGFR was calculated using the CKD-EPI equation. As with all creatinine based estimates of kidney function, eGFR values calculated with the CKD-EPI equation are not accurate in patients with acute kidney failure, extremes of body mass or the acutely ill. [email or web address] Blood specimen (specimen) 03/05/2018 6:42 AM EDT 03/05/2018 6:58 AM EDT Narrative Resulting Agency Comment Spec In Lab Angel Mccullough MD CHEMISTRY ORDERABLES Performing Organization Address City/State/[facility] [place] Co de Phone Number [facility] [place] [address] * SCAN DOC: MACHINE SIGN WRITER (03/05/2018 12:00 AM EDT) Anatomical Region Laterality Modality Other Narrative 03/05/2018 12:00 AM EDT Ordered by an unspecified provider. Scanning Provider MEDIA MGR SCAN EXT O RDR/RSLT * SCAN DOC: IMPLANTABLE DEVICES (03/05/2017 12:00 AM EDT) Narrative 03/05/2017 12:00 AM EDT Ordered by an unspecified provider. Scanning Provider MEDIA MGR SCAN EXT O RDR/RSLT documented in this encounter Visit Diagnoses Diagnosis Intermittent claudication Peripheral vascular disease, unspecified History of renal stent Aortoiliac occlusive 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 Aortoiliac occlusive 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 documented in this encounter Admitting Diagnoses Diagnosis Aortoiliac occlusive 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 documented in this encounter Administered Medications Inactive Administered Medications - up to 3 most recent administrations Medication Order MAR Action Action Date Dose Rate Site acetaminophen (TYLENOL) tablet 1,000 mg 1,000 mg, Oral, ONCE, 1 dose, On Sun03/05/18 at 0400, Maximum dose of acetaminophen is 4000 mg from all sources in 24 hours., Routine Given 03/05/2018 7:10 AM EDT 1,000 mg acetaminophen (TYLENOL) tablet 1,000 mg 1,000 mg, Oral, 4 TIMES DAILY BEFORE MEALS & NIGHTLY, First dose (after last modification) on Sun03/05/18 at 1315, Until Discontinued, Maximum dose of acetaminophen is 4000 mg from all sources in 24 hours., Recovery (Recovery-Hospital Unit), Routine Given 03/06/2018 12:02 PM EDT 1,000 mg Given 03/06/2018 8:57 AM EDT 1,000 mg Given 03/05/2018 11:53 PM EDT 1,000 mg aspirin EC tablet 81 mg 81 mg, Oral, DAILY, First dose on Sun03/06/18 at 0900, Until Discontinued, Routine Given 03/06/2018 8:57 AM EDT 81 mg ceFAZolin (ANCEF) 2g in dextrose 5% 100 mL 2 g, Intravenous, EVERY 8 HOURS, 1 dose, First dose on Sun03/05/18 at 1600, Administer over 30 Minutes, Indication for (Active or Suspected): Prophylaxis New Bag 03/05/2018 4:13 PM EDT 2 g 200 mL/ hr clopidogrel (PLAVIX) tablet 300 mg 300 mg, Oral, ONCE, 1 dose, On Sun03/05/18 at 1300, Routine Given 03/05/2018 12:34 PM EDT 300 mg clopidogrel (PLAVIX) tablet 75 mg 75 mg, Oral, DAILY, First dose on Sun03/06/18 at 0900, Until Discontinued, Routine Given 03/06/2018 8:58 AM EDT 75 mg hydrALAZINE (APRESOLINE) injection 10 mg 10 mg, Intravenous, EVERY 2 HOURS PRN, Starting on Sun03/05/18 at 1300, Until Sun03/06/18 at 1323, High Blood Pressure, for SBP> 150 and HR < 60 Given 03/05/2018 1:15 PM EDT 10 mg hydrALAZINE (APRESOLINE) injection 10 mg 10 mg, Intravenous, EVERY 4 HOURS PRN, Starting on Sun03/06/18 at 1323, Until Sun03/06/18 at 1708, High Blood Pressure, For SBP>160, Hold if HR>90 hydroCHLOROthiazide (HYDRODIURIL) tablet 12.5 mg 12.5 mg, Oral, DAILY, First dose on Sun03/06/18 at 0900, Until Discontinued, Routine Given 03/06/2018 9:01 AM EDT 12.5 mg hydroCHLOROthiazide (HYDRODIURIL) tablet 25 mg 25 mg, Oral, DAILY, First dose (after last modification) on Wilda 03/07/18 at 0900, Until Discontinued, Routine HYDROmorphone (DILAUDID) injection 0.2-0.4 mg 0.2-0.4 mg, Intravenous, EVERY 5 MIN PRN, Starting on Sun03/05/18 at 1054, Until Sun03/05/18 at 2011, Pain, Give 0.2 mg every 5 minutes [...] for breakthrough pain., PACU Recovery, Routine Given 03/05/2018 6:57 PM EDT 0.4 mg Given 03/05/2018 3:18 PM EDT 0.4 mg Given 03/05/2018 2:04 PM EDT 0.2 mg labetalol (NORMODYNE,TRANDATE) injection 10 mg 10 mg, Intravenous, EVERY 2 HOURS PRN, Starting on Sun03/05/18 at 1300, Until Sun03/06/18 at 1708, High Blood Pressure, for SBP>150 and HR>60, Routine Given 03/06/2018 12:10 PM EDT 10 mg Given 03/06/2018 9:10 AM EDT 10 mg Given 03/05/2018 1:05 PM EDT 10 mg labetalol (NORMODYNE,TRANDATE) injection 5 mg 5 mg, Intravenous, ONCE, 1 dose, On Sun03/05/18 at 1215, PACU Recovery, Routine Given 03/05/2018 12:06 PM EDT 5 mg lactated Ringers infusion 1,000 mL 1,000 mL, at 100 mL/hr, Intravenous, CONTINUOUS, Starting on Sun03/05/18 at 0715, Until Sun03/05/18 at 1317, Day of Surgery (Day of Procedure) New Bag 03/05/2018 7:26 AM EDT 1,000 mLs 100 mL/hr lidocaine (XYLOCAINE) 10 mg/mL (1 %) injection 3 mg 3 mg (0.3 mL), Subcutaneous, ONCE PRN, 1 dose, Starting on Sun03/05/18 at 0655, Until Sun03/05/18 at 0726, for discomfort with PIV insertion, Day of Surgery (Day of Procedure), Routine Given 03/05/2018 7:26 AM EDT 3 mg melatonin tablet 3 mg 3 mg, Oral, NIGHTLY, First dose on Sun03/06/18 at 0000, Until Discontinued, May give second dose if desired, Routine Given 03/05/2018 11:53 PM EDT 3 mg nicotine (NICODERM CQ) 21 mg/24 hr patch 21 mg 21 mg (1 patch), Transdermal, DAILY, First dose on Sun03/05/18 at 1300, Until Discontinued, Routine nicotine (NICODERM CQ) 21 mg/24 hr patch Patch Removal Transdermal, DAILY, First dose on Sun03/06/18 at 1245, Until Discontinued, Remove nicotine 21 mg/24 hr patch nicotine (NICODERM CQ) 21 mg/24 hr patch Patch Verification Transdermal, 2 TIMES DAILY, First dose on Sun03/06/18 at 0045, Until Discontinued, Verify nicotine 21 mg/24 hr patch senna-docusate (PERICOLACE) 8.6-50 mg per tablet 2 tablet 2 tablet, Oral, 2 TIMES DAILY PRN, Starting on Sun03/06/18 at 0631, Until Sun03/06/18 at 1708, Constipation, Routine sodium chloride 0.9% infusion 100 mL/hr, Intravenous, CONTINUOUS, Starting on Sun03/05/18 at 1230, Until Sun03/05/18 at 2229 New Bag 03/05/2018 8:59 PM EDT 100 mL/hr 100 mL/hr New Bag 03/05/2018 12:41 PM EDT 100 mL/hr 100 mL/hr traMADol (ULTRAM) tablet 50 mg 50 mg, Oral, EVERY 6 HOURS PRN, Starting on Sun03/05/18 at 1203, Until Sun03/06/18 at 1708, Pain, Routine Given 03/06/2018 1:26 AM EDT 50 mg Given 03/05/2018 7:37 PM EDT 50 mg Given 03/05/2018 12:34 PM EDT 50 mg documented in this encounter Active and Recently Administered Medications Times are shown in EDT. Scheduled Medication Order 03/04/2018 03/05/2018 03/06/2018 acetaminophen (TYLENOL) tablet 1,000 mg (COMPLETED) 1,000 mg, Oral, ONCE, 1 dose, On Sun03/05/18 at 0400, Maximum dose of acetaminophen is 4000 mg from all sources in 24 hours., Routine 0710 (Given - Provider: Aishwarya Floyd RN) acetaminophen (TYLENOL) tablet 1,000 mg 1,000 mg, Oral, 4 TIMES DAILY BEFORE MEALS & NIGHTLY, First dose (after last modification) on Sun03/05/18 at 1315, Until Discontinued, Maximum dose of acetaminophen is 4000 mg from all sources in 24 hours., Recovery (Recovery-Hospital Unit), Routine 1234 (Given - Provider: Viridiana Hyatt RN)1937 (Given - Provider: Viridiana Hyatt RN)2353 (Given - Provider: Zoran Mcclendon RN) 0857 (Given - Provider: Shelli Martin RN)1202 (Given - Provider: Shelli Martin RN) aspirin EC tablet 81 mg 81 mg, Oral, DAILY, First dose on Sun03/06/18 at 0900, Until Discontinued, Routine 0857 (Given - Provid er: Shelli Martin RN) atorvastatin (LIPITOR) tablet 20 mg 20 mg, Oral, EVERY EVENING, First dose on Sun03/05/18 at 2145, Until Discontinued, Routine 2145 (Not Given - Provider: Jenna Adhikari RN - Reason: See comment - Comment: pt took it this morning, and takes in mornings) ceFAZolin (ANCEF) 2g in dextrose 5% 100 mL (COMPLETED) 2 g, Intravenous, ONCE, 1 dose, On Sun03/05/18 at 0715, Administer over 30 Minutes, Redose every 3 hours if CrCl is greater than 20. Redose every 8 hours if CrCl is less than 20., Day of Surgery (Day of Procedure), Indication for (Active or Suspected): Prophylaxis 0758 (Given - Provider: Joe Cano CRNA) ceFAZolin (ANCEF) 2g in dextrose 5% 100 mL (COMPLETED) 2 g, Intravenous, EVERY 8 HOURS, 1 dose, First dose on Sun03/05/18 at 1600, Administer over 30 Minutes, Indication for (Active or Suspected): Prophylaxis 1613 (New Bag - Provider: Viridiana Hyatt RN)1643 (Stopped - Provider: Viridiana Hyatt RN) clopidogrel (PLAVIX) tablet 300 mg (COMPLETED) 300 mg, Oral, ONCE, 1 dose, On Sun03/05/18 at 1300, Routine 1234 (Given - Provider: Viridiana Hyatt RN) clopidogrel (PLAVIX) tablet 75 mg 75 mg, Oral, DAILY, First dose on Sun03/06/18 at 0900, Until Discontinued, Routine 0858 (Given - Provid er: Shelli Martin RN) hydroCHLOROthiazide (HYDRODIURIL) tablet 12.5 mg (CANCELED) 12.5 mg, Oral, DAILY, First dose on Sun03/06/18 at 0900, Until Discontinued, Routine 0901 (Given - Provid er: Shelli Martin RN) hydroCHLOROthiazide (HYDRODIURIL) tablet 12.5 mg 12.5 mg, Oral, ONCE, 1 dose, On Sun03/06/18 at 1345, Routine 1345 (Not Given - Provider: Shelli Martin RN - Reason: Order parameters not met) hydroCHLOROthiazide (HYDRODIURIL) tablet 25 mg 25 mg, Oral, DAILY, First dose (after last modification) on Sun03/07/18 at 0900, Until Discontinued, Routine labetalol (NORMODYNE,TRANDATE) injection 5 mg (COMPLETED) 5 mg, Intravenous, ONCE, 1 dose, On Sun03/05/18 at 1215, PACU Recovery, Routine 1206 (Given - Provider: Viridiana Hyatt RN) melatonin tablet 3 mg 3 mg, Oral, NIGHTLY, First dose on Sun03/06/18 at 0000, Until Discontinued, May give second dose if desired, Routine 2353 (Given - Provider: Zoran Mcclendon RN) nicotine (NICODERM CQ) 21 mg/24 hr patch 21 mg(Linked Group 1) 21 mg (1 patch), Transdermal, DAILY, First dose on Sun03/05/18 at 1300, Until Discontinued, Routine 1300 (Not Given - Provider: Viridiana Hyatt RN - Reason: Patient/family refused) 0900 (Not Given - Provider: Shelli Martin RN - Reason: Patient/family refused) nicotine (NICODERM CQ) 21 mg/24 hr patch Patch Removal(Linked Group 1) Transdermal, DAILY, First dose on Sun03/06/18 at 1245, Until Discontinued, Remove nicotine 21 mg/24 hr patch 1245 (Patch Not Orestes riley (add comment) - Provider: Shelli Martin RN) nicotine (NICODERM CQ) 21 mg/24 hr patch Patch Verification(Linked Group 1) Transdermal, 2 TIMES DAILY, First dose on Sun03/06/18 at 0045, Until Discontinued, Verify nicotine 21 mg/24 hr patch 0045 (Not Given - Provider: Zoran Mcclendon RN - Reason: See comment - Comment: Refused)0900 (Not Given - Provider: Shelli Martin RN - Reason: Patient/family refused) Continuous Medication Order 03/04/2018 03/05/2018 03/06/2018 lactated Ringers infusion 1,000 mL (CANCELED) 1,000 mL, at 100 mL/hr, Intravenous, CONTINUOUS, Starting on Sun03/05/18 at 0715, Until Sun03/05/18 at 1317, Day of Surgery (Day of Procedure) 0726 (New Bag - Provider: Aishwarya Floyd RN)0732 (Canceled Entry - Provider: Joe Cano CRNA)0746 (Canceled Entry - Provider: Joe Cano CRNA)1048 (Anesthesia Volume Adjustment - Provider: Joe Cano CRNA)2300 (Stopped - Provider: Zoran Mcclendon RN) sodium chloride 0.9% infusion () 100 mL/hr, Intravenous, CONTINUOUS, Starting on Sun03/05/18 at 1230, Until Sun03/05/18 at 2229 1241 (New Bag - Provider: Me belkis Hyatt RN)9 (New Bag - Provider: Zoran Mcclendon RN) PRN Medication Order 03/04/2018 03/05/2018 03/06/2018 gelatin adsorbable (GELFOAM) sponge (CANCELED) ONCE PRN, Starting on Sun03/05/18 at 1016, Until Sun03/06/18 at 1708, Intra-Operative (Intra-Procedure) 1016 (Given - Provider: nAgel Mccullough MD) hydrALAZINE (APRESOLINE) injection 10 mg (CANCELED) 10 mg, Intravenous, EVERY 2 HOURS PRN, Starting on Sun03/05/18 at 1300, Until Sun03/06/18 at 1323, High Blood Pressure, for SBP> 150 and HR < 60 1315 (Given - Provider: Viridiana Hyatt RN) hydrALAZINE (APRESOLINE) injection 10 mg 10 mg, Intravenous, EVERY 4 HOURS PRN, Starting on Sun03/06/18 at 1323, Until Sun03/06/18 at 1708, High Blood Pressure, For SBP>160, Hold if HR>90 HYDROmorphone (DILAUDID) injection 0.2-0.4 mg (CANCELED) 0.2-0.4 mg, Intravenous, EVERY 5 MIN PRN, Starting on Sun03/05/18 at 1054, Until Sun03/05/18 at 2011, Pain, Give 0.2 mg every 5 minutes PRN for mild to moderate pain (1-5) Give 0.4 mg every 5 minutes PRN for moderate to severe pain (6-10). Hold for respiratory rate less than 10 per minute. Maximum dose 4 mg over one hour. If multiple pain medications are ordered, start with hydromorphone or morphine and use fentanyl for breakthrough pain., PACU Recovery, Routine 1149 (Given - Provider: Viridiana Hyatt RN)1205 (Given - Provider: Viridiana Hyatt RN)1215 (Given - Provider: Viridiana Hyatt RN)1404 (Given - Provider: Gay Carvalho RN)1518 (Given - Provider: Viridiana Hyatt RN)1857 (Given - Provider: Iris Weaver RN) iodixanol (VISIPAQUE) 320 mg iodine/mL injection (CANCELED) ONCE PRN, Starting on Sun03/05/18 at 1109, Until Sun03/06/18 at 1708, Intra-Operative (Intra-Procedure), Routine 1109 (Given - Provider: Angel Mccullough MD) labetalol (NORMODYNE,TRANDATE) injection 10 mg 10 mg, Intravenous, EVERY 2 HOURS PRN, Starting on Sun03/05/18 at 1300, Until Sun03/06/18 at 1708, High Blood Pressure, for SBP>150 and HR>60, Routine 1305 (Given - Provider: Viridiana Hyatt RN) 0910 (Given - Provider: Shelli Martin RN)1210 (Given - Provider: Shelli Martin RN) lidocaine (XYLOCAINE) 10 mg/mL (1 %) injection 3 mg (COMPLETED) 3 mg (0.3 mL), Subcutaneous, ONCE PRN, 1 dose, Starting on Sun03/05/18 at 0655, Until Sun03/05/18 at 0726, for discomfort with PIV insertion, Day of Surgery (Day of Procedure), Routine 0726 (Given - Provider: Aishwarya Floyd RN) senna-docusate (PERICOLACE) 8.6-50 mg per tablet 2 tablet 2 tablet, Oral, 2 TIMES DAILY PRN, Starting on Sun03/06/18 at 0631, Until Sun03/06/18 at 1708, Constipation, Routine thrombin (Bovine) (THROMBINAR) kit (CANCELED) ONCE PRN, Starting on Sun03/05/18 at 1016, Until Sun03/06/18 at 1708, Intra-Operative (Intra-Procedure) 1016 (Given - Provider: Angel Mccullough MD) traMADol (ULTRAM) tablet 50 mg 50 mg, Oral, EVERY 6 HOURS PRN, Starting on Sun03/05/18 at 1203, Until Sun03/06/18 at 1708, Pain, Routine 1234 (Given - Provider: Viridiana Hyatt RN)1937 (Given - Provider: Viridiana Hyatt RN) 0126 (Given - Provider: Zoran Mcclendon RN) Linked Groups Order Group 1: nicotine (NICODERM CQ) 21 mg/24 hr patch 21 mgJump to med 21 mg (1 patch), Transdermal, DAILY, First dose on Sun03/05/18 at 1300, Until Discontinued, Routine And nicotine (NICODERM CQ) 21 mg/24 hr patch Patch VerificationJump to med Transdermal, 2 TIMES DAILY, First dose on Sun03/06/18 at 0045, Until Discontinued, Verify nicotine 21 mg/24 hr patch And nicotine (NICODERM CQ) 21 mg/24 hr patch Patch RemovalJump to med Transdermal, DAILY, First dose on Sun03/06/18 at 1245, Until Discontinued, Remove nicotine 21 mg/24 hr patch documented in this encounter Care Teams Cellar Hand Relationship Specialty Start Date End Date Saundra Reddy APRN PCP - General Family Medicine 01/02/18 12/02/18 documented as of this encounter
--- OUTSIDE RECORDS SUMMARY | 2023-12-04 01:10 | XMS_ITS | Encounter Summary ---
Author Organization [facility] Address [facility] [place] [address] Care Team Providers Care Computer Clerk Name Role Phone Beena Wilkes APRN Primary Care Provider [phone] Encounter Details Date Type Department Care Team (Late st Contact Info) Description 01/23/2019 Telephone [place]ascular [place] [phone] Iris Farmer RN Social History Tobacco Use Types Packs/Day Years Used Date Smoking Tobacco: Former Cigarettes Q uit: 2019 Smokeless Tobacco: Never Sex and Gender Information Value Date Recorded Sex Assigned at Not on file Gender Identity Not on file Sexual Orientation Not on file documented as of this encounter Miscellaneous Notes * Telephone Encounter - Iris Farmer RN - 01/23/2019 1:38 PM EDT Appt set up for Pt to see Dr. Dawn for cardiac clearance on 01/28 at 0930, Pt agreeable and Dr. Dawn and Dr. Gilbert aware. documented in this encounter Plan of Treatment Not on file documented as of this encounter Visit Diagnoses Not on filedocumented in this encounter Care Teams Computer Clerk Relationship Specialty Start Date End Date Beena Wilkes APRN [address] [place], [place] [address] PCP - General Family Medicine 01/13/19 03/02/22 documented as of this encounter
--- OUTSIDE RECORDS SUMMARY | 2023-12-04 01:10 | XMS_ITS | Encounter Summary ---
Author Organization [facility] [place] [address] Care Team Providers Care Unbundler Name Role Phone Saundra Reddy APRN Primary Care Provider [phone] Encounter Details Date Type Department Care Team (Late st Contact Info) Description 01/22/2018 Orders Only Vascular [place] [address] Iris Farmer, RN Intermittent claudication Social History Tobacco Use [...] unspecified documented in this encounter Care Teams Unbundler Relationship Specialty Start Date End Date Saundra Reddy APRN PCP - General Family Medicine 01/02/18 12/02/18 documented as of this encounter
--- OUTSIDE RECORDS SUMMARY | 2023-12-04 01:10 | XMS_ITS | Encounter Summary ---
Author Organization [facility] Address [facility] [place] [address] Care Team Providers Care Supervisor Grower Name Role Phone Saundra Reddy SHEREE Primary Care Provider [phone] Reason for Visit * Reason Comments Claudication pt here for ct and c laudicatin le pt states on ambulation and going up stairs pt states most time starting in the thigh area Encounter Details Date Type Department Care Team (Late st Contact Info) Description 01/22/2018 10:00 AM EDT Office [place] [address] Yves Vegas MD [facility] [place] [address] Abdominal aortic atherosclerosis; Atherosclerosis of aortic bifurcation and common iliac arteries Social History Tobacco Use Types Packs/Day Years Used Date Smoking Tobacco: Former Smokeless Tobacco: Never Sex and Gender Information Value Date Recorded Sex Assigned at Not on file Gender Identity Not on file Sexual Orientation Not on file documented as of this encounter Last Filed Vital Signs Vital Sign Reading Time Taken Comments Blood Pressure 168/84 01/22/2018 10:06 AM EDT Pulse 75 01/22/2018 10:06 AM EDT Temperature - - Respiratory Rate 18 01/22/2018 10:06 AM EDT Oxygen Saturation - - Inhaled Oxygen Concentration - - Weight 44.5 kg (98 lb) 01/22/2018 10:06 AM EDT Height 154.9 cm (5' 1) 01/22/2018 10:06 AM EDT Body Mass Index 18.52 01/22/2018 10:06 AM EDT documented in this encounter Progress Notes * Eri Rosas MD - 01/22/2018 10:00 AM EDT Vascular Surgery History and Physical ID/CC: Emiliana Farmer is a 53 y.o. female who presents to clinic for follow up of her thigh claudication. HPI: Emiliana Farmer is a 53 y.o. female with a PMH significant for HTN and FMD s/p R renal angioplasty(1997) who presents for follow up of her bilateral thigh claudication. Since her last visit, she experiences R>L proximal thigh pain. She says it is severe and garcia shortly after walking. If she continues to ambulate, her calf muscles will also start to ache and then her feet become cold. This r esolves after sitting for some time. She states that her proximal thigh pain is much worse than thelast appointment and she does not think she can tolerate it much longer. She also experiences hip and buttock claudication, though mild. 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 Shehas needed to take some time off from work because of these symptoms. She denies chest pain, dyspnea. Review of Systems: As per HPI. Past Medical History: Diagnosis Date ??? Hypertension 01/08/2018 No past surgical history on file. Functional Status/Social Hx: Lives at home,Drives Car, Quit smoking 01/18/18, Occasional EtOH Medications: Current Outpatient Prescriptions on File Prior to Visit Medication Sig Dispense Refill ??? Ibuprofen (ADVIL LIQUI-GEL) 200 mg Cap No current facility-administered medications on file prior to visit. HCTZ 125 mg qDay ASA 81mg qDay Atorvastatin 20mg qDay Allergies: Review of patient's allergies indicates no known allergies. Physical Exam: Temp: -- Heart Rate: [75] Resp: [18] BP: (168)/(84) SpO2: -- Heart Rate from SPO2: -- General: NAD, resting comfortably HEENT: EOMI, anicteric sclerae CVS: Regular rate, no m/r/g Pulm: Clear bilaterally Abd: soft, non tender, non distended Ext: RLE: No edema. Foot cool but pink. No tissue loss. LLE: No edema. Skin cool but pink. No tissue loss. Neuro: Grossly nonfocal, moving all extremities. Vascular Exam: R L Carotid 2/2 2/2 Radial 2/2 2/2 Femoral 1/2 1/2 Popliteal 2/2 2/2 DP 2/2 2/2 PT 0/2 0/2 Labs: No results for input(s): WBC, HGB, HCT, PLATELET in the last 72 hours. No results for input(s): NA, K, CL, CO2, BUN, CREATININE, PHOS, CALCIUM in the last 72 hours. Imaging: CTA lower extremity (01/22/18) demonstrates a calcified aortic lesion just proximal to the aortic bifurcation causing severe stenosis as well as severe stenosis of the right common iliac artery. There is also an incidental finding of vaginal vault fullness and endometrial thickening and enhancement on CTA. The radiologist who wrote the report recommends that it be correlated with a physical exam and ultrasound if pertinent. Assessment and Plan: Emiliana Farmer is a 53 y.o. 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 She is not interested in medical management and exercise therapy which was discussed with her. Bilateral TAZ stenting was discussed as well as an aortobifem bypass as options to treat her stenosis. The risks and benefits of each procedure were discussed and she would like to proceed with bilateral TAZ stents. Plan for the procedure in 2-3 week's time. F/u Cr * Yves Vegas MD - 01/22/2018 10:00 AM EDT Vascular Attending Note Attestation: I interviewed and examined Emiliana Farmer alongside vascular surgery resident Eri Rosas MD, and based on my independent observations as well as my review of the patient's CT scan, I agree with Dr. Rosas' assessment and plan. Summary: This 53 year-old woman has lifestyle limiting claudication, and she cannot continue working at her current job if she can't walk. Her ABIs are 0.6 bilaterally. CTA demonstrates that the mostsevere stenoses lie in her distal aorta and common iliacs. The most durable reconstruction would be open aortoiliac endarterectomy or aortobifemoral bypass graft, but she really wants to avoid major open surgery. The second best approach will be endovasculartreatment of these lesions, but complexity is introduced by the heavily calcified distal aortic stenosis. I believe the best endovascular approach will be deployment of an Endologix AFX unibody bifurcated [id number] endograft. We should do this in the OR where we will have ample resources should any complications occur. I have tentatively scheduled this for Sunday03/05/18. I appreciate being asked to perform this consultation. Yves Vegas M.D. Section of Vascular Surgery documented in this encounter Plan of Treatment Not on file documented as of this encounter Visit Diagnoses Diagnosis Abdominal aortic atherosclerosis Atherosclerosis of aorta Atherosclerosis of aortic bifurcation and common iliac arteries documented in this encounter Care Teams Supervisor Grower Relationship Specialty Start Date End Date Saundra Reddy, SHEREE PCP - General Family Medicine 01/02/18 12/02/18 documented as of this encounter
--- OUTSIDE RECORDS SUMMARY | 2023-12-04 01:10 | XMS_ITS | Encounter Summary ---
[place] [address] Care Team Providers Care Termite Treater Helper Name Role Phone Beena Wilkes APRN Primary Care Provider [phone] Encounter Details Date Type Department Care Team (Latest Contact Info) Description 01/17/2019 11:55 AM EDT Laboratory Appointment Lab [address] [place] [address] PVD (peripheral vascular disease) with claudication Social History Tobacco Use Types Packs/Day [...] Procedure Name Priority Date/Time Associated Diagnosis Comments HC VENIPUNCTURE STAT 01/17/2019 11:45 AM EDT PVD (peripheral vascular disease) with claudication documented in this encounter Results * (ABNORMAL) Creatinine (01/17/2019 11:45 AM EDT) Creatinine 0.61(L) 0.70 - 1.20 mg/dL [facility] Estimated GFR 104 >=60 mL/min/1.7 3 m?? [facility] Comment: The eGFR was calculated using the CKD-EPI equation. As with all creatinine based estimates of kidney function, eGFR values calculated with the CKD-EPI equation are not accurate in patients with acute kidney failure, extremes of body mass or the acutely ill. [email or web address] eGFR 120 >=60 mL/min/1.7 3 m?? [facility] Comment: The eGFR was calculated using the CKD-EPI equation. As with all creatinine based estimates of kidney function, eGFR values calculated with the CKD-EPI equation are not accurate in patients with acute kidney failure, extremes of body mass or the acutely ill. [email or web address] Blood specimen (specimen) 01/17/2019 11:45 AM EDT 01/17/2019 11:50 AM EDT Narrative Resulting Agency Comment Spec In Lab Laura Quiros APRN CHEMISTRY ORDERABL ES [facility] [place] [address] documented in this encounter Visit Diagnoses Diagnosis PVD (peripheral vascular disease) with claudication Peripheral vascular disease, unspecified documented in this encounter Care Teams Termite Treater Helper Relationship Specialty Start Date End Date Beena Wilkes APRN [address] [place] [address] PCP - General Family Medicine 01/13/19 03/02/22 documented as of this encounter
--- OUTSIDE RECORDS SUMMARY | 2023-12-04 01:10 | XMS_ITS | Encounter Summary ---
Author Organization [facility] Address [facility] [place] [address] Care Team Providers Care Coal Chemist Name Role Phone Jorge Luisedison Saundra Edison BENTLEY Primary Care Provider [phone] Encounter Details Date Type Department Care Team (Late st Contact Info) Description 04/15/2018 1:00 PM EST Office [place] [address] Radha Emery APRN [facility] [place] [address] Stenosis of aorta; Iliac artery stenosis, bilateral Social History Tobacco Use Types Packs/Day Years Used Date Smoking Tobacco: Some Days Cigarettes Smokeless Tobacco: Never Sex and Gender Information Value Date Recorded Sex Assigned at Not on file Gender Identity Not on file Sexual Orientation Not on file documented as of this encounter Last Filed Vital Signs Vital Sign Reading Time Taken Comments Blood Pressure 176/69 04/15/2018 1:07 PM EST Pulse 69 04/15/2018 1:06 PM EST Temperature - - Respiratory Rate 18 04/15/2018 1:06 PM EST Oxygen Saturation - - Inhaled Oxygen Concentration - - Weight 45.8 kg (101 lb) 04/15/2018 1:06 PM EST Height 154.9 cm (5' 1) 04/15/2018 1:06 PM EST Body Mass Index 19.08 04/15/2018 1:06 PM EST documented in this encounter Progress Notes * Radha Emery APRN - 04/15/2018 1:00 PM EST Post op 03/05/2018: [employer] 14 x 40 stent in distal-most abdominal aorta, 7 x 59 iCast stentgraft in right common iliac artery, 7 x 59 iCast stent graft in left common iliac artery 53F??former??smoker??(quit Dec, 2017)??with hypertension, right renal artery stenosis sp angioplasty [id number], and short distance bilateral buttocks and thigh claudication related to aortoiliac disaese. Pt reports cramping pain in her thighs, right worse than left after walking 50 feet. Today: Doing well. Claudication resolved. Denies rest pain, tissue loss, SOB, chest pain, TIa's, problems with incision. PE General: NAD, appears well Neuro: Alert and oriented, motor sensory grossly intact Lungs: CTA Heart: RRR Abd: Soft, NT, ND, no palpable pulsatile masses Extremity - Terral, warm, no ulceration, brisk capillary refill, no edema right groin puncture site healed. Left groin incision healed. Vascular: R L Carotid 2/2 bruit (n) 2/2 bruit (n) Radial 2/2 2/2 Femoral 2/2 2/2 Popliteal 2/2 2/2 DP 2/2 2/2 PT 2/2 2/2 SHA's Right ?Pressure (mm Hg) ?? SHA ??Waveform [...] No significant change compared to previous exam. Assessment/Plan: 53 yo female 03/05/2018: [employer] 14 x 40 stent in distal-most abdominal aorta, 7 x 59 iCast stent graft in right common iliac artery, 7 x 59 iCast stent graft in left common iliac artery. Well healed. No complaints. Very happy with results. ABIs improved to normal. Return to work 04/17/18. D/C Plavix when finished with last 10 days. Continue ASA daily. Discussed smoking cession she is seeing PCP tomorrow and going back on patch. Dr Vegas in to visit. RTC 3 months with SHA's Please call our office if you notice decrease in walking distance, pain in your foot that wakes you at night and is relieved with getting up or hanging it over the side of the bed or you have foot wound that will not heal. documented in this encounter Plan of Treatment Not on file documented as of this encounter Results * SHA, legs, multiple levels (07/09/2018 7:29 AM EST) VB Text Report Department: Vascular Surgery Lab Patient: [id number] (SMOOTH EMILIANA) CPT: 54479 ICD10: I77.1;Q25.3 Referring Physician: RADHA EMERY APRN ?? Indications: Hx of aortic and iliac stents. Diabetes mellitus: no ICD10 Diagnosis Code: I77.1, Q25.3 Findings: Right ?Pressure (mm Hg) ?? SHA ??Waveform ?? Brachial Artery ?163 ? Dorsalis Pedis (Ankle) Artery ?163 ? 1.00 ??Triphasic ?? Posterior Tibial (Ankle) Artery ??168 ? 1.03 ??Triphasic ?? Left ? Pressure (mm Hg) ?? SHA ??Waveform ?? Brachial Artery ?163 ? Dorsalis Pedis (Ankle) Artery ?154 ? 0.94 ??Triphasic ?? Posterior Tibial (Ankle) Artery ??154 ? 0.94 ??Triphasic ?? Interpretation: RIGHT: No significant lower extremity arterial occlusive disease identified at rest. Normal ankle/brachial pressure ratios and ankle Doppler waveforms. No significant change compared to previous exam. LEFT: Mild lower extremity arterial occlusive disease. No significant change in SHA compared to previous exam. However disease severity did change from normal to mild. Previous ABIs with change from previous value: Date ?RIGHT DP ?? RIGHT PT ?? RT GR TOE ??RT Sec TOE ??0.63 ? 0.57 ? ---- ? ---- ??0.99(+.36) 1.06(+.49) ---- ? ---- ??0.99( .00) 0.98(-.08) ---- ? ---- Current ? 1.00(+.01) 1.03(+.05) ---- ? ---- Date ?LEFT DP ?LEFT PT ?LT GR TOE LT Sec TOE ??0.62 ? 0.56 ? ---- ? ---- ??0.98(+.36) 1.00(+.44) ---- ? ---- ??1.01(+.03) 0.99(-.01) ---- ? ---- Current ? 0.94(-.07) 0.94(-.05) ---- ? ---- Electronically Signed by: LEO GREENFIELD MD on 2018-07-09 12:56:02 PM [facility] VB Text Report End of Report [facility] 07/09/2018 7:29 AM EST Radha Emery APRN VASCULAR ORDERABLE S [facility] documented in this encounter Visit Diagnoses Diagnosis Stenosis of aorta Iliac artery stenosis, bilateral Stricture of artery documented in this encounter Care Teams Coal Chemist Relationship Specialty Start Date End Date Saundra Reddy FIREWORKS INSPECTOR PCP - General Family Medicine 01/02/18 12/02/18 documented as of this encounter
--- OUTSIDE RECORDS SUMMARY | 2023-12-04 01:10 | XMS_ITS | Encounter Summary ---
[place] [address] Care Team Providers Care Reeling Operator Name Role Phone None Primary Care Provider Unavailabl e Encounter Details Date Type Department Care Team (Late st Contact Info) Description 12/04/2018 Orders Only [place] [address] Emmy Green, [facility] Social History Tobacco Use Types Packs/Day Years [...] on filedocumented in this encounter Care Teams Reeling Operator Relationship Specialty Start Date End Date None None PCP - General 12/03/18 01/12/19 documented as of this encounter
--- OUTSIDE RECORDS SUMMARY | 2023-12-04 01:10 | XMS_ITS | Encounter Summary ---
Author Organization [facility] Address [facility] [place] [address] Care Team Providers Care Stock Buyer Name Role Phone Jorge LuisSaundra hogan Sunil BENTLEY Primary Care Provider [phone] Reason for Referral * Diagnostic Test (Routine) - Closed Specialty Diagnoses / Procedures Referred By Contac t Referred To Contact Radiology Diagnoses Atherosclerosis of [place] artery of both lower extremities with intermittent claudication Procedures CT Angiogram Aorta Lower Extremity Runoff Lesley Serrano [place] [facility] [place] [address] [facility] [place] [address] Referral ID Status Reason Start Date Expiration Date V isits Requested Visits Authorized [id number] Closed Specialty Service Requested 01/07/2018 02/23/2018 1 1 Reason for Visit * Diagnostic Test (Routine) - Closed Specialty Diagnoses / Procedures Referred By Contac t Referred To Contact Radiology Diagnoses Atherosclerosis of [place] artery of both lower extremities with intermittent claudication Procedures CT Angiogram Aorta Lower Extremity Runoff Lesley Serrano [place] [facility] [place] [address] [facility] [place] [address] Referral ID Status Reason Start Date Expiration Date V isits Requested Visits Authorized [id number] Closed Specialty Service Requested 01/07/2018 02/23/2018 1 1 Encounter Details Date Type Department Care Team (Latest Contact Info) Description 01/22/2018 7:12 AM EDT - 01/22/2018 11:59 PM EDT Hospital [place] [address] Consuelo Toledo MD [facility] [place] [address] Atherosclerosis of tonkawa artery of both lower extremities with intermittent claudication Discharge Disposition: Home Social History Tobacco Use Types Packs/Day Years Used Date Smoking Tobacco: Former Smokeless Tobacco: Never Sex and Gender Information Value Date Recorded Sex Assigned at Not on file Gender Identity Not on file Sexual Orientation Not on file documented as of this encounter Medications at Time of Discharge Medication Sig Dispensed Refills Start Date End Date nicotine (NICODERM CQ) 21 mg/24 [address] 21 patches onto the skin daily. 0 01/16/2018 aspirin 81 mg Tablet, Delayed Release (E.C.) Take 81 mg by mouth daily. atorvastatin (LIPITOR) 20 mg Tablet Take 20 mg by mouth. 0 01/16/2018 019 hydroCHLOROthiazide (HYDRODIURIL) 12.5 mg Tablet Take 12.5 mg by mouth daily. 0 01/16/2018 03/06/2018 Ibuprofen (ADVIL LIQUI-GEL) 200 mg Cap 08/14/20022017 documented as of this encounter Plan of Treatment Not on file documented as of this encounter Procedures Procedure Name Priority Date/Time Associated Diagnosis Comments CT ANGIOGRAM AORTA LOWER EXTREMITY RUNOFF Routine 01/22/2018 7:58 AM EDT Atherosclerosis of tonkawa artery of both lower extremities with intermittent claudication documented in this encounter Results * CT Angiogram Aorta Lower Extremity Runoff (01/22/2018 7:58 AM EDT) Anatomical Region Laterality Modality Abdomen Computed Tomogra phy Impressions 01/22/2018 11:20 AM EDT 1. ??Severe stenosis of the distal aorta proximal to the bifurcation. 2. 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 3. ??Patent bilateral three-vessel smwcg-nzo-lvnw runoff to the foot ?? 4. ??Remainder of the vascular findings as above. 5. ??Fullness of the vaginal vault and hyperenhancement and apparent thickening of the endometrium. Recommend physical exam correlation and consider ultrasound. I have personally reviewed the image(s) and the residents interpretation and agree with the findings, Amarjit Zimmerman at 01/22/2018 11:20 AM Narrative 01/22/2018 11:20 AM EDT EXAMINATION: CT ANGIOGRAM AORTA LOWER EXTREMITY RUNOFF CLINICAL HISTORY: b/l thigh claudication, aortoiliac disease by ABIs TECHNIQUE: Helical CTA of the abdomen, pelvis and lower extremities was performed following intravenous administration of 150 cc of Omnipaque 350. MPRs were performed. 3-D images were generated on an independent workstation. COMPARISON: None FINDINGS: VASCULAR FINDINGS Abdominal aorta: Scattered atherosclerosis in the aorta with severe stenosis proximal to the bifurcation (series 8, image 345). Celiac: No stenosis. SMA: No stenosis. Right renal artery: No stenosis. Left renal artery: No stenosis. MAXIMO: Occluded at origin and reconstituted by collateral vessels RIGHT LOWER EXTREMITY Common iliac artery: Severe [...] pedis: Widely patent. Plantar arteries: Widely patent. LEFT LOWER EXTREMITY Common iliac artery: Distal [...] pedis: Widely patent. Plantar arteries: Widely patent. NON-VASCULAR FINDINGS Lower chest: No consolidation, inflammatory changes, nodularity, or masses. Liver: Normal in size and attenuation without lesions. Bile ducts: No dilatation. Gallbladder: Normal wall caliber. No calcified gallstones. No pericholecystic fluid. Pancreas: Normal attenuation without ductal dilatation. Spleen: Normal in attenuation and size. Kidneys/adrenals: Symmetric enhancement. No hydronephrosis or nephrolithiasis. Urinary Bladder: No wall thickening. Lymph Nodes: No lymphadenopathy. Bowel: No dilatation. No wall thickening. Reproductive organs: Fullness of the vaginal vault. Hyperenhancement and apparent thickening of the endometrium. Peritoneum and mesentery: No ascites, free air or loculated fluid collection. No mesenteric inflammation. Abdominal wall: Normal. Osseous structures: No suspicious lytic or sclerotic osseous lesions. Procedure Note Amarjit Zimmerman MD - 01/22/2018 EXAMINATION: CT ANGIOGRAM AORTA LOWER EXTREMITY RUNOFF CLINICAL HISTORY: b/l thigh claudication, aortoiliac disease by ABIs TECHNIQUE: Helical CTA of the abdomen, pelvis and lower extremities was performed following intravenous administration of 150 cc of Omnipaque 350.MPRs were performed. 3-D images were generated on an independent workstation. COMPARISON: None FINDINGS: VASCULAR FINDINGS Abdominal aorta: Scattered atherosclerosis in the aorta with severestenosis proximal to the bifurcation (series 8, image 345). Celiac: No stenosis. SMA: No stenosis. Right renal artery: No stenosis. Left renal artery: No stenosis. MAXIMO: Occluded at origin and reconstituted by collateral vessels RIGHT LOWER EXTREMITY Common iliac artery: Severe stenosis at the origin with moderate stenosisin the remainder. External iliac artery: No hemodynamically significant stenosis Internal iliac artery: Atherosclerosis causing moderate stenosis in theproximal segment.. Common femoral artery: Widely patent. Superficial femoral artery: Widely patent. Profundus femoral artery: Widely patent. Popliteal artery: Widely patent. Anterior tibial artery: Widely patent. Tibio-peroneal trunk: Widely patent. Posterior tibial artery: Widely patent. Peroneal artery: Widely patent. Dorsalis pedis: Widely patent. Plantar arteries: Widely patent. LEFT LOWER EXTREMITY Common iliac artery: Distal [...] pedis: Widely patent. Plantar arteries: Widely patent. NON-VASCULAR FINDINGS Lower chest: No consolidation, inflammatory changes, nodularity, ormasses. Liver: Normal in size and attenuation without lesions. Bile ducts: No dilatation. Gallbladder: Normal wall caliber. No calcified gallstones. Nopericholecystic fluid. Pancreas: Normal attenuation without ductal dilatation. Spleen: Normal in attenuation and size. Kidneys/adrenals: Symmetric enhancement. No hydronephrosis ornephrolithiasis. Urinary Bladder: No wall thickening. Lymph Nodes: No lymphadenopathy. Bowel: No dilatation. No wall thickening. Reproductive organs: Fullness of the vaginal vault. Hyperenhancement and apparent thickening of the endometrium. Peritoneum and mesentery: No ascites, free air or loculated fluidcollection. No mesenteric inflammation. Abdominal wall: Normal. Osseous structures: No suspicious lytic or sclerotic osseous lesions. IMPRESSION 1. Severe stenosis of the distal aorta proximal to the bifurcation. 2. Severe stenosis of the origin of the right common iliac artery withmild to moderate stenosis of the remainder. 3. Patent bilateral three-vessel xlroq-igj-jhfy runoff to the foot 4. Remainder of the vascular findings as above. 5. Fullness of the vaginal vault and hyperenhancement and apparentthickening of the endometrium. Recommend physical exam correlation and considerultrasound. I have personally reviewed the image(s) and the residents interpretationand agree with the findings, Amarjit Zimmerman at 01/22/2018 11:20 AM 11:20 AM Consuelo Toledo MD IMG CT ORDERABLES documented in this encounter Visit Diagnoses Diagnosis Atherosclerosis of tonkawa artery of both lower extremities with intermittent claudication Atherosclerosis of tonkawa arteries of the extremities with intermittent claudication documented in this encounter Administered Medications Inactive Administered Medications - up to 3 most recent administrations Medication Order MAR Action Action Date Dose Rate Site iohexol (OMNIPAQUE) 350 mg/mL solution 0-200 mL 0-200 mL, Intravenous, ONCE PRN, 1 dose, Starting on Sun01/22/18 at 0801, Until Sun01/22/18 at 0801, Per Protocol, Warning Vesicant/Irritant Medication , Radiology Contrast, Routine Given 01/22/2018 8:01 AM EDT 150 mLs documented in this encounter Care Teams Stock Buyer Relationship Specialty Start Date End Date Saundra Reddy APRN PCP - General Family Medicine 01/02/18 12/02/18 documented as of this encounter
--- OUTSIDE RECORDS SUMMARY | 2023-12-04 01:10 | XMS_ITS | Encounter Summary ---
Author Organization [facility] [place] [address] Care Team Providers Care Medical Service Technician Name Role Phone Saundra Reddy APRN Primary Care Provider Encounter Details Date Type Department Care Team (Late st Contact Info) Description 01/09/2018 Orders [place] [address] Emmy Green, MEDICAL FIELD REPRESENTATIVE Intermittent claudication; History of renal stent Social History Tobacco Use Types Packs/Day Years [...] stent documented in this encounter Care Teams Medical Service Technician Relationship Specialty Start Date End Date Saundra Reddy APRN PCP - General Family Medicine 01/02/18 12/02/18 documented as of this encounter
--- OUTSIDE RECORDS SUMMARY | 2023-12-04 01:10 | XMS_ITS | Encounter Summary ---
Author Organization [facility] [place] [address] Care Team Providers Care Rotary Drum Tanner Name Role Phone Jorge Luisedison Saundra Edison BENTLEY Primary Care Provider [phone] Encounter Details Date Type Department Care Team (Latest Contact Info) Description 04/15/2018 11:11 AM EST - 04/15/2018 11:59 PM EST Hospital En[place] [address] Vikash Black [place] Intermittent claudication; Aortoiliac occlusive disease Discharge Disposition: Home Social [...] mouth daily. 90 tablet 3 03/07/2018 01/17/2019 atorvastatin (LIPITOR) 20 mg Tablet Take 20 mg by mouth. 0 01/16/2018 019 documented as of this encounter Plan of Treatment Not on file documented as of this encounter Procedures Procedure Name Priority Date/Time Associated Diagnosis Comments SHA, LEGS, MULTIPLE LEVELS Routine 04/15/2018 12:17 PM EST Intermittent claudication Aortoiliac occlusive disease documented in this encounter Results * SHA, legs, multiple levels (04/15/2018 12:17 PM EST) VB Text Report Department: Vascular Surgery Lab Patient: [id number] (EMILIANA FARMER) CPT: 90262 ICD10: I73.9;I74.09 Referring Physician: ANGEL VEGAS ?? Indications: f/u bilateral iliac stents Diabetes [...] ---- ? ---- Electronically Signed by: ANGEL VEGAS on 2018-04-15 01:42:40 PM [facility] VB Text Report End of Report V[facility] 04/15/2018 12:1 7 PM EST Angel Vegas MD VASCULAR ORDERABLES [facility] documented in this encounter Visit Diagnoses Diagnosis Intermittent claudication Peripheral vascular disease, unspecified Aortoiliac occlusive 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 documented in this encounter Care Teams Rotary Drum Tanner Relationship Specialty Start Date End Date Saundra Reddy, SHEREE PCP - General Family Medicine 01/02/18 12/02/18 documented as of this encounter
--- OUTSIDE RECORDS SUMMARY | 2023-12-04 01:10 | XMS_ITS | Encounter Summary ---
Author Organization [facility] [place] [address] Care Team Providers Care Communications Representative Name Role Phone Risa Richards APRN Primary Care Provider [phone] Encounter Details Date Type Department Care Team (Late st Contact Info) Description 12/31/2017 Orders Only [place] [id number] Emmy Green, ORIENTATION AND MOBILITY INSTRUCTOR Intermittent claudication; History of renal stent Social History Tobacco Use Types Packs/Day Years Used Date Smoking Tobacco: Never Assessed Sex and Gender Information Value Date Recorded Sex Assigned at Not on file Gender Identity Not on file Sexual Orientation Not on file documented as of this encounter Plan of Treatment Not on file documented as of this encounter Results * Duplex Study Renal Arteries, Bilat (01/02/2018 8:00 AM EDT) VB Text Report Department: Vascular Surgery Lab Patient: [id number] (EMILIANA FARMER) CPT: 73975 ICD10: Z98.890;I70.1 Referring Physician: PETE GILBERT ?? [...] database for comparison. Electronically Signed by: ANGEL MCCULOLUGH on 2018-01-07 10:05:04 AM [facility] VB Text Report End of Report [facility] 01/02/2018 8:00 AM EDT Pete Gilbert MD VASCULAR ORDERA BLES [facility] * SHA, legs, multiple levels (01/02/2018 8:00 AM EDT) VB Text Report Department: Vascular Surgery Lab Patient: [id number] (EMILIANA FARMER) CPT: 07579 ICD10: I70.213;I73.9 Referring Physician: PETE GILBERT ?? [...] Brachial Artery ?170 ? Common Femoral Artery ?Morrison-Biphasi c ?? Popliteal Artery ? Monophasic ? [...] AM EDT Pete Gilbert MD [facility]ASCULAR ORDERA [facility] documented in this encounter Visit Diagnoses Diagnosis Intermittent claudication Peripheral vascular disease, unspecified History of renal stent documented in this encounter Care Teams Communications Representative Relationship Specialty Start Date End Date Risa Richards APRN PCP - General Family Medicine 12/31/17 01/01/18 documented as of this encounter
--- OUTSIDE RECORDS SUMMARY | 2023-12-04 01:10 | XMS_ITS | Encounter Summary ---
Author Organization [facility] [place] [address] Care Team Providers Care [employer]arry Plant Crusher Operator Name Role Phone None Primary Care Provider Unavailabl e Encounter Details Date Type Department Care Team (Latest Contact Info) Description 12/03/2018 8:30 AM EDT Tech [place] [id number] Gallo Zazueta, RVT Iliac artery stenosis, bilateral; Stenosis of infrarenal abdominal aorta due to arteriosclerosis Social History Tobacco Use Types Packs/Day Years [...] Diagnosis Comments SHA, LEGS, MULTIPLE LEVELS Routine 12/03/2018 8:28 AM EDT Iliac artery stenosis, bilateral Stenosis of infrarenal abdominal aorta due to arteriosclerosis documented in this encounter Results * SHA, legs, multiple levels (12/03/2018 8:28 AM EDT) VB Text Report Department: Vascular Surgery Lab Patient: [id number] (EMILIANA FARMER) CPT: 20782 ICD10: I70.0;I77.1 Referring Physician: RADHA EMERY, SHEREE ?? Indications: ??aortic and iliac stents, new leg pain, ? change Diabetes mellitus: no ICD10 Diagnosis Code: I70.0, I77.1 Findings: Right ?Pressure (mm Hg) ?? SHA ??Waveform ?TBI ?? Brachial Artery ?195 ? Dorsalis Pedis (Ankle) Artery ?206 ? 1.04 ??Triphasic ? Posterior Tibial (Ankle) Artery ??208 ? 1.05 ??Triphasic ? Great Toe ?137 ?0.69 ?? Left ? Pressure (mm Hg) ?? SHA ??Waveform ? TBI ?? Brachial Artery ?199 ? Dorsalis Pedis (Ankle) Artery ?109 ? 0.55 ??Monophasic ? Posterior Tibial (Ankle) Artery ??112 ? 0.56 ??Monophasic ? Great Toe ?87 ?0.44 ?? Interpretation: RIGHT: No significant lower extremity arterial occlusive disease. Normal ankle/brachial pressure ratios, ankle Doppler waveforms and toe pressures. LEFT: Moderate lower extremity arterial occlusive disease. Deterioration compared to previous exam. Previous ABIs with change from previous value: Date ?RIGHT DP ?? RIGHT PT ?? RT GR TOE ??RT Sec TOE ??0.63 ? 0.57 ? ---- ? ---- ??0.99(+.36) 1.06(+.49) ---- ? ---- ??0.99( .00) 0.98(-.08) ---- ? ---- ??1.00(+.01) 1.03(+.05) ---- ? ---- Current ? 1.04(+.04) 1.05(+.02) 0.69 ? ---- Date ?LEFT DP ?LEFT PT ?LT GR TOE LT Sec TOE ??0.62 ? 0.56 ? ---- ? ---- ??0.98(+.36) 1.00(+.44) ---- ? ---- ??1.01(+.03) 0.99(-.01) ---- ? ---- ??0.94(-.07) 0.94(-.05) ---- ? ---- Current ? 0.55(-.39) 0.56(-.38) 0.44 ? ---- Electronically Signed by: PETE ÁLVAREZ on 2018-12-03 04:37:17 PM VASCUBASE VB Text Report End of Report VASCUBASE 12/03/2018 8:28 AM EDT Radha Emery [employer] ORDER[employer] S VASCUBASE documented in this encounter Visit Diagnoses Diagnosis Iliac artery stenosis, bilateral Stricture of artery Stenosis of infrarenal abdominal aorta due to arteriosclerosis Atherosclerosis of aorta documented in this encounter Care Teams [employer]ar[employer] Plant Crusher Operator Relationship Specialty Start Date End Date None None PCP - General 12/03/18 01/12/19 documented as of this encounter
--- OUTSIDE RECORDS SUMMARY | 2023-12-04 01:10 | XMS_ITS | Encounter Summary ---
Author Organization [facility] [place] [address] Care Team Providers Care Jack Frame Tender Name Role Phone Saundra Reddy SHEREE Primary Care Provider [phone] Reason for Visit * Auth/Cert Specialty Diagnoses / Procedures Referred By Beverley t Referred To Contact Diagnoses claudication Procedures PRO ENDOVASC REPAIR DEPLOYMENT [id number] ENDOGRAFT 1 Referral ID Status Reason Start Date Expiration Date Visits Re quested Visits Authorized [id number] 1 1 Encounter Details Date Type Department Care Team (Late st Contact Info) Description 03/05/2018 7:30 AM EDT - 03/05/2018 11:38 AM EDT Surgery [place] [address] Angel Mccullough MD [facility] [place] [address] TRANSCATH PLACEMENT INTRAVASCULAR STENT, OPN/PERQ, INITIAL ARTERY, S&I (WRVU 8.75) Social History Tobacco Use Types Packs/Day Years Used Date Smoking Tobacco: Former Smokeless Tobacco: Never Sex and Gender Information Value Date Recorded Sex Assigned at Not on file Gender Identity Not on file Sexual Orientation Not on file documented as of this encounter Last Filed Vital Signs Vital Sign Reading Time Taken Comments Blood Pressure 179/87 03/05/2018 11:38 AM EDT pt anxious & thrashing Pulse 67 03/05/2018 11:38 AM EDT Temperature 36.3 ??C (97.3 ??F) 03/05/2018 1 1:25 AM EDT Respiratory Rate 16 03/05/2018 11:3 8 AM EDT Oxygen Saturation 100% 03/05/2018 11: 38 AM EDT Inhaled Oxygen Concentration - - [...] hypertension, right renal artery stenosis sp angioplasty [id number], and short distance bilateral buttocks and thigh [...] in 170s systolic. 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 General Instructions None Future Appointments and Orders Future Appointments and Orders Future Appointments Provider Department Dept Phone 04/15/2018 12:30 PM Azucena Evans [place] [facility] at [place] Arrive at: [place] [facility] 3V [phone] 04/15/2018 1:00 PM Radha Emery APRN Vascular Surgery at [place] Arrive at: [place] [facility] 3V [phone] Future Orders Complete By Expires SHA, legs, multiple levels [VAS8 Custom] 04/06/2018 (Approximate) 03/06/2019 Process Instructions: There is no in-house vascular clinical genetics laboratory chief available on weeknights (5pm-8am), weekends, or holidays. IF THIS IS A REQUEST FOR AN EMERGENT STUDY DURING THOSE HOURS, please have the senior provider responsible for the patient page the Vascular Surgery Fellow/Senior Resident hospital admissions officer to discuss options. Scheduling Instructions: Questions: Indication for study/signs & symptoms: s/p aortic and iliac stent graft placement Question to be answered: bloodflow to feet Which DH location will this be performed?: [place] Discharge References/Attachments: Discharge References/Attachments None Electronically Signed [...] For any problems or questions please call [phone] TOR Broussard, dump motor operator Nurse Clinician For issues on weeknights after 5pm and weekends please call [phone] and ask for the Vascular Fellow hospital admissions officer. documented in this encounter Medications at Time [...] MD Team in to see----- * Zoran Mcclendon RN - 03/06/2018 4:59 AM EDT Sleeping between care--Pain level was acceptable per pt w/current pain med regimen--Good UOP,Barker D/Cd at 0300--Plan is to Ambulate w/Possible D/C to Home in PM * Judy Figueroa MD - 03/05/2018 7:18 PM EDT Surgery Post Op Check Walker Farmer is a 53 y.o. 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 Successful angioplasty of right renal artery stenosis, probably atherosclerotic in origin. 2. Fibromuscular dysplasia, posterior division left renal artery. Functional Status/Social Hx: Lives w Works at [employer] Smoked 1ppd, quit dec 2017 Drinks 6 [...] Waveform Brachial Artery 170 Common Femoral Artery [place]-Biphasic Popliteal Artery Monophasic Dorsalis Pedis (Ankle) Artery [...] MD/GLENNY, PGY-5 Section of Vascular Surgery, Pager [phone] Associated attestation - Angel Mccullough MD - [...] Figueroa MD - 03/05/2018 12:00 PM EDT [facility] [place] Note ?? Patient Name: Walker Farmer : [id number] MR#: [id number] ?? Case Date: 03/05/2018 ?? Surgeon: Surgeon(s) and Role: * Angel Mccullough MD - Primary * Judy Figueroa MD - Resident-Cancer Genetics Assistant ?? 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 Procedures: Bard Lifestyle 14 x 40 stent in distal-most abdominal aorta (93692) 7 x 59 iCast stent graft in right common iliac artery (78658) 7 x 59 iCast stent graft in left common iliac artery (38552) Anesthesia: General ?? Findings: Failure of percutaneous [...] Implant Name Type Inv. Item Serial No. Golf Cart Maker Lot No. LRB No. Used Action STENT,LSTAR,VASC,[id number],80CM [id number]) - [id number] IMPLANTS STENT,LSTAR,VASC,[id number],80CM ([id number]) ?? [employer] - CR BARD [id number] N/A 1 Implanted STENT,ICAST,CVR,8X59MM,80CM ([id number]) - [id number] IMPLANTS STENT,ICAST,CVR,8X59MM,80CM ([id number]) [id number] [employer] GETINGE GR ?? N/A 1 Wasted STENT,ICAST,CVR,7X59MM,120CM ([id number]) - [id number] IMPLANTS STENT,ICAST,CVR,7X59MM,120CM [id number] [employer] GR ?? Left 1 Implanted STENT,ICAST,CVR,7X59MM,120CM ([id number]) - [id number] IMPLANTS STENT,ICAST,CVR,7X59MM,120CM [id number] [employer] GR ?? Right 1 Implanted ? PRBCs: none (See Anesthesia Record/Report for Other Blood Products) Urine Output: 600 mL ?? Drains: None ?? Disposition: PACU ?? Condition: Stable HPI: 53F former smoker (quit Dec, 2017) with hypertension, right renal artery stenosis sp angioplasty [id number], and short distance bilateral buttocks and thigh [...] in 170s systolic. 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 Heparin was given. Using a stiff Glidewire and NTA catheter we were able to cross the lesions in the iliac and infrarenal aorta and advanced the stiff Glidewire into the descending thoracic part of the aorta. We attempted to proceed the same procedure on the left side. An 18 [place] needle was used to access the left common femoral artery. However despite multiple attempts at access (with 4 attempts at puncturing the artery), due to the small caliber of the vessel we were unable to successfully advance a [place] wire. Therefore at that point we elected [...] artery proximal and distal. With an 18 [place] needle we are able to access the [...] wires through an NTA catheter. The 5 [place] sheaths were exchanged for 25 cm 7 [place] long sheaths. On the left side a [...] placing the common iliac stents. The 7 [place] sheaths were advanced into the infrarenal aorta. 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 Item Serial No. Golf Cart Maker Lot No. LRB No. Used Action STENT,LSTAR,VASC,[id number],80CM ([id number]) - [id number] IMPLANTS STENT,LSTAR,VASC,[id number],80CM ([id number]) [employer] - [employer] BARD [id number] N/A 1 Implanted STENT,ICAST,CVR,8X59MM,80CM ([id number]) - [id number] IMPLANTS STENT,ICAST,CVR,8X59MM,80CM ([id number]) [id number] [employer] N/A 1 Wasted STENT,ICAST,CVR,7X59MM,120CM ([id number]) - [id number] IMPLANTS STENT,ICAST,CVR,7X59MM,120CM ([id number] [employer] Left 1 Implanted STENT,ICAST,CVR,7X59MM,120CM ([id number]) - [id number] IMPLANTS STENT,ICAST,CVR,7X59MM,120CM [id number] [employer] Right 1 [...] PANEL (NON-FASTING) Routine 03/05/2018 6:42 AM EDT BAKERY SALES CLERK SCAN 03/05/2018 12:00 AM EDT IMPLANTABLE DEVICES SCAN 03/05/2017 12:00 AM EDT documented in this encounter Results * SHA, legs, multiple levels (04/15/2018 12:17 PM EST) Pathologist [facility] [place] VB Text Report Department: Vascular Surgery Lab Patient: [id number] (WALKER FARMER) CPT: 90089 ICD10: I73.9;I74.09 Referring Physician: ANGEL MCCULLOUGH ?? [...] Text Report Department: Vascular Surgery Lab Patient: [id number] (WALKRE FARMER) CPT: 95196 ICD10: I74.09;I73.9 Referring Physician: ANGEL MCCULLOUGH ?? [...] 4:40 AM EDT) Neutrophil % 81 % [facility] Lymphocyte % 17 % [facility] Monocyte % 2 % [facility] Neutrophil Abs 11.9(H) 1.5 - 6.3 x10(3)/[facility] Neutr Abs (ANC) 11.91(H) 1.70 - 6.10 x10(3)/[facility] Lymphocyte Abs 2.5 1.0 - 3.6 x10(3)/[facility] Monocyte Abs 0.3 0.2 - 1.0 x10(3)/[facility] Tot Diff Cell Ct 100 [facility] Plat Estimate Normal [facility] RBC Morphology Normal [facility] Hyperseg Neutro Present [facility] Blood specimen (specimen) 03/06/2018 4:40 AM EDT 03/06/2018 4:46 AM EDT Narrative Resulting Agency Comment Spec In Lab Judy Figueroa MD HEMATOLOGY ORDERABLE S [facility] [place] [address] * (ABNORMAL) Hemogram (03/06/2018 4:40 AM EDT) WBC 14.7(H) 4.0 - 9.5 x10(3)/[facility] RBC 3.43(L) 4.00 - 5.21 x10(6)/[facility] Hemoglobin 11.1(L) 11.7 - 15.5 gm/dL [facility] Hematocrit 32.4(L) 35.7 - 45.8 % [facility] MCV 94.5(H) 82.6 - 94.4 fL [facility] MCH 32.4(H) 27.1 - 32.0 pg [facility] MCHC 34.3 31.7 - 35.0 gm/dL [facility] Platelets 236 145 - 357 x10(3)/[facility] RDWSD 44.4 37.0 - 46.0 [facility] RDWCV 13.0 11.5 - 14.1 % [facility] MPV 9.7 7.6 - 12.9 [facility] nRBC % Auto 0.0 % [facility] nRBC Abs Auto 0.000 0.000 - 0.000 x10(3)/[facility] Blood specimen (specimen) 03/06/2018 4:40 AM EDT 03/06/2018 4:46 AM EDT Narrative Resulting Agency Comment Spec In Lab Judy Figueroa MD HEMATOLOGY ORDERABLE S [facility] [place] [address] * (ABNORMAL) Basic Metabolic Panel (non-fasting) (03/06/2018 4:40 AM EDT) Glucose Lvl 126 65 - 199 mg/dL [facility] Comment:Diabetes: >=200 mg/d L plus symptoms BUN 8 8 - 18 mg/dL [facility] Creatinine 0.53(L) 0.70 - 1.20 mg/dL [facility] Sodium 137 135 - 145 mmol/L [facility] Potassium 4.1 3.5 - 5.0 mmol/L [facility] Comment: Please note: ??Patients with WBC >100,000 may have falsely elevated Potassium levels. ??For accurate Potassium quantification in these patients send serum separator tube (gold top) for subsequent determinations. ??Contact the Clinical Chemistry Laboratory if there are any questions. Chloride 104 98 - 107 mmol/L [facility] CO2 25 22 - 31 mmol/L [facility] Anion Gap 8 5 - 15 mmol/L [facility] Calcium 8.5 8.5 - 10.5 mg/dL [facility] Estimated GFR 109 >=60 mL/min/1. 73 m?? [facility] Comment: The eGFR was calculated using the CKD-EPI equation. As with all creatinine based estimates of kidney function, eGFR values calculated with the CKD-EPI equation are not accurate in patients with acute kidney failure, extremes of body mass or the acutely ill. [email or web address]://[employer]/[facility] eGFR 127 >=60 mL/min/1. 73 m?? [facility] Comment: The eGFR was calculated using the CKD-EPI equation. As with all creatinine based estimates of kidney function, eGFR values calculated with the CKD-EPI equation are not accurate in patients with acute kidney failure, extremes of body mass or the acutely ill. [email or web address]://[employer]/[facility] Blood specimen (specimen) 03/06/2018 4:40 AM EDT 03/06/2018 4:46 AM EDT Narrative Resulting Agency Comment Spec In Lab Angel Mccullough MD CHEMISTRY ORDERABLES Performing Organization Address City/[facility]/ZIP Co de Phone Number [facility] [place] [address] * IR OR VASC Aniogram Image Storage Only (03/05/2018 8:45 AM EDT) Narrative [facility] - 03/05/2018 8:45 AM EDT This exam is for storage only and is auto-finalizing. Angel Mccullough MD IMG FILM LIBRARY ORD ERABLES Performing Organization Address City/[facility]/ZIP Co de Phone Number [place], [place] * (ABNORMAL) BLOOD GAS 2 ARTERIAL (03/05/2018 8:43 AM EDT) pH Art 7.49(H) 7.35 - 7.45 [facility] pCO2 Art 32(L) 35 - 45 mmHg [facility] pO2 Art 276(H) 85 - 104 mmHg [facility] HCO3 Art 24.0 20.0 - 26.0 mmol/L [facility] BE Art 0.6 -3.0 - 3.0 mmol/L [facility] Hgb Blood Gas 12.7 11.7 - 15.5 gm/dL [facility] O2HB Art 98.2(H) 94.0 - 97.0 % [facility] COHB Art 0.8 % [facility] Comment: Nonsmokers: 0.5-1.5% COHB Smokers: Variable, but usually less than 10% Toxic: 20-30% COHB Lethal: Greater than 60% COHB METHB Art 0.3 <=1.5 % [facility] Na Whole Blood 138 135 - 145 mmol/L [facility] K Whole Blood 3.6 3.5 - 5.0 mmol/L [facility] Comment: Please note: Patients with WBC >100,000 may have falsely elevated Potassium levels. Contact the Clinical Chemistry Laboratory if there are any questions. ICa Whole Blood 1.12(L) 1.15 - 1.33 mmol/L [facility] Comment: Note: ??Total bilirubin higher than 20 mg/dL may lead to falsely low ionized calcium. CL Whole Blood 106 98 - 107 mmol/L [facility] Gluc Whole Bld 159 65 - 199 mg/dL [facility] Comment:Diabetes: >=200 mg/d L plus symptoms. Lactate WB 1.8 0.5 - 2.2 mmol/L [facility] Blood specimen (specimen) 03/05/2018 8:43 AM EDT 03/05/2018 8:43 AM EDT Angel Mccullough MD CHEMISTRY ORDERABLES Performing Organization Address [facility] Co de Phone Number [facility] [place] [address] * EKG 12 Lead (03/05/2018 7:04 AM EDT) Ventricular rate 72 BPM MUSE SYSTEM Atrial Rate 72 BPM MUSE SYSTEM P-R Interval 170 ms MUSE SYSTEM QRS Duration 116 ms MUSE SYSTEM Q-T Interval 452 ms MUSE SYSTEM QTC Calculated (Bezet) 494 ms MUSE SYSTEM Calculated P Martinez 59 degrees MUSE SYSTEM Calculated R Martinez 31 degrees MUSE SYSTEM Calculated T Martinez 34 degrees MUSE SYSTEM INTERPRETATION Normal sinus rhythm Left bundle branch block Abnormal ECG No previous ECGs available Confirmed by MD CALDERON JOHN ([id number]) on 03/05/2018 8:32:44 AM MUSE SYSTEM 03/05/2018 7:04 AM EDT 03/05/2018 8:32 AM EDT Angel Mccullough MD ECG ORDERABLES Performing Organization Address City/[facility]/ZIP Co de Phone Number MUSE SYSTEM * ABORH Recheck Status (03/05/2018 6:42 AM EDT) ABORH Recheck Order Order Placed [facility] ABORH Type Recheck Complete [facility] Blood specimen (specimen) 03/05/2018 6:42 AM EDT 03/05/2018 6:46 AM EDT Narrative Resulting Agency Comment Spec In Lab Laura Romo MD BLOOD BANK L AB ORDERABLES Performing Organization Address City/[facility]/ZIP Co de Phone Number [facility] [place] [address] * Antibody screen (03/05/2018 6:42 AM EDT) Ab Screen Interp Negative [facility] Expires at [id number] on: 03/08/2018 [facility] Blood specimen (specimen) 03/05/2018 6:42 AM EDT 03/05/2018 6:46 AM EDT Narrative Resulting Agency Comment Spec In Lab Laura Romo MD BLOOD BANK L AB ORDERABLES Performing Organization Address City/[facility]/ZIP Co de Phone Number [facility] [place] [address] * ABO/Rh Typing (03/05/2018 6:42 AM EDT) ABORH Type A Pos [facility] Blood specimen (specimen) 03/05/2018 6:42 AM EDT 03/05/2018 6:46 AM EDT Narrative Resulting Agency Comment Spec In Lab Laura Romo MD BLOOD BANK L AB ORDERABLES Performing Organization Address City/[facility]/ZIP Co de Phone Number [facility] [place] [address] * (ABNORMAL) Differential, Automated (03/05/2018 6:42 AM EDT) Neutrophils % 70.6 % [facility] Neutr Abs (ANC) 8.01(H) 1.70 - 6.10 x10(3)/mc L [facility] Lymphocytes % 22.8 % [facility] Lymphocytes Abs 2.6 0.9 - 3.2 x10(3)/mc L [facility] Monocytes % 4.3 % [facility] Monocyte Abs 0.5 0.3 - 0.9 x10(3)/[facility] Eosinophils % 1.6 % [facility] Eosinophils Abs 0.2 0.0 - 0.4 x10(3)/[facility] Basophils % 0.4 % [facility] Basophils Abs 0.0 0.0 - 0.1 x10(3)/[facility] Immature Gran % 0.30 % [facility] Comment: Immature granulocytes(IG's)percentage and absolute count will include metamyelocytes, myelocytes, and promyelocytes. Blood smears from CBCs yielding IG's will be scanned manually for concordance. If this scan disagrees with the automated IG or if promyelocytes are noted, a manual differential will be performed. Thea Gran Abs 0.03 0.00 - 0.04 x10(3)/[facility] Blood specimen (specimen) 03/05/2018 6:42 AM EDT 03/05/2018 6:58 AM EDT Narrative Resulting Agency Comment Spec In Lab Laura Romo MD HEMATOLOGY O RDERABLES [facility] [place] [address] * (ABNORMAL) Hemogram (03/05/2018 6:42 AM EDT) WBC 11.3(H) 4.0 - 9.5 x10(3)/[facility] RBC 4.01 4.00 - 5.21 x10(6)/[facility] Hemoglobin 12.8 11.7 - 15.5 gm/dL [facility] Hematocrit 38.3 35.7 - 45.8 % [facility] MCV 95.5(H) 82.6 - 94.4 fL [facility] MCH 31.9 27.1 - 32.0 pg [facility] MCHC 33.4 31.7 - 35.0 gm/dL [facility] Platelets 285 145 - 357 x10(3)/[facility] RDWSD 45.1 37.0 - 46.0 [facility] RDWCV 12.8 11.5 - 14.1 % [facility] MPV 9.8 7.6 - 12.9 [facility] nRBC % Auto 0.0 % [facility] nRBC Abs Auto 0.000 0.000 - 0.000 x10(3)/[facility] Blood specimen (specimen) 03/05/2018 6:42 AM EDT 03/05/2018 6:58 AM EDT Narrative Resulting Agency Comment Spec In Lab Laura Romo MD HEMATOLOGY O RDERABLES [facility] [place] [address] * (ABNORMAL) Basic Metabolic Panel (non-fasting) (03/05/2018 6:42 AM EDT) Glucose Lvl 128 65 - 199 mg/dL [facility] Comment:Diabetes: >=200 mg/d L plus symptoms BUN 13 8 - 18 mg/dL [facility] Creatinine 0.60(L) 0.70 - 1.20 mg/dL [facility] Sodium 142 135 - 145 mmol/L [facility] Potassium 4.3 3.5 - 5.0 mmol/L [facility] Comment: Please note: ??Patients with WBC >100,000 may have falsely elevated Potassium levels. ??For accurate Potassium quantification in these patients send serum separator tube (gold top) for subsequent determinations. ??Contact the Clinical Chemistry Laboratory if there are any questions. Chloride 103 98 - 107 mmol/L [facility] CO2 27 22 - 31 mmol/L [facility] Anion Gap 12 5 - 15 mmol/L [facility] Calcium 9.1 8.5 - 10.5 mg/dL [facility] Estimated GFR 105 >=60 mL/min/1. 73 m?? [facility] Comment: The eGFR was calculated using the CKD-EPI equation. As with all creatinine based estimates of kidney function, eGFR values calculated with the CKD-EPI equation are not accurate in patients with acute kidney failure, extremes of body mass or the acutely ill. [email or web address]://[employer]/[facility] eGFR 121 >=60 mL/min/1. 73 m?? [facility] Comment: The eGFR was calculated using the CKD-EPI equation. As with all creatinine based estimates of kidney function, eGFR values calculated with the CKD-EPI equation are not accurate in patients with acute kidney failure, extremes of body mass or the acutely ill. [email or web address]://[employer]/[facility] Blood specimen (specimen) 03/05/2018 6:42 AM EDT 03/05/2018 6:58 AM EDT Narrative Resulting Agency Comment Spec In Lab Angel Mccullough MD CHEMISTRY ORDERABLES [facility] [place] [address] * SCAN DOC: BAKERY SALES CLERK (03/05/2018 12:00 AM EDT) Anatomical Region Laterality Modality Other Narrative 03/05/2018 12:00 AM EDT Ordered by an unspecified provider. Scanning Provider MEDIA MGR SCAN EXT O RDR/RSLT * SCAN DOC: IMPLANTABLE DEVICES (03/05/2017 12:00 AM EDT) Narrative 03/05/2017 12:00 AM EDT Ordered by an unspecified provider. Scanning Provider MEDIA MGR SCAN EXT O RDR/RSLT documented in this encounter Visit Diagnoses Not on filedocumented in this encounter Admitting Diagnoses Diagnosis Aortoiliac [...] Given 03/06/2018 8:57 AM EDT 81 mg clopidogrel (PLAVIX) tablet 75 mg 75 mg, Oral, DAILY, First dose on Sun03/06/18 at 0900, Until Discontinued, Routine Given 03/06/2018 8:58 AM EDT 75 mg gelatin adsorbable (GELFOAM) sponge ONCE PRN, Starting on Sun03/05/18 at 1016, Until Sun03/06/18 at 1708, Intra-Operative (Intra-Procedure) Given 03/05/2018 10:16 AM EDT 3 each hydrALAZINE (APRESOLINE) injection 10 mg 10 mg, Intravenous, EVERY 4 HOURS PRN, Starting on Sun03/06/18 at 1323, Until Sun03/06/18 at 1708, High Blood Pressure, For SBP>160, Hold if HR>90 hydroCHLOROthiazide (HYDRODIURIL) tablet 25 mg 25 mg, Oral, DAILY, First dose (after last modification) on Sun03/07/18 at 0900, Until Discontinued, Routine iodixanol (VISIPAQUE) 320 mg iodine/mL injection ONCE PRN, Starting on Sun03/05/18 at 1109, Until Sun03/06/18 at 1708, Intra-Operative (Intra-Procedure), Routine Given 03/05/2018 11:09 AM EDT 129.5 mLs labetalol (NORMODYNE,TRANDATE) injection 10 mg 10 mg, Intravenous, EVERY 2 HOURS PRN, Starting on Sun03/05/18 at 1300, Until Sun03/06/18 at 1708, High Blood Pressure, for SBP>150 and HR>60, Routine Given 03/06/2018 12:10 PM EDT 10 mg Given 03/06/2018 9:10 AM EDT 10 mg Given 03/05/2018 1:05 PM EDT 10 mg melatonin tablet 3 mg 3 mg, [...] 1708, Constipation, Routine thrombin (Bovine) (THROMBINAR) kit ONCE PRN, Starting on Sun03/05/18 at 1016, Until Sun03/06/18 at 1708, Intra-Operative (Intra-Procedure) Given 03/05/2018 10:16 AM EDT 20,000 Un its traMADol (ULTRAM) tablet 50 mg 50 mg, [...] Viridiana Hyatt RN)1937 (Given - Provider: Viridiana Hyatt, SADAF)2353 (Given - Provider: Zoran Mcclendon RN) 0857 [...] Orestes riley (add comment) - Provider: Shelli Martin, SADAF) nicotine (NICODERM CQ) 21 mg/24 hr patch [...] (New Bag - Provider: Me belkis Hyatt RN)2059 (New Bag - Provider: Zoran Mcclendon, SADAF) PRN Medication Order 03/04/2018 03/05/2018 03/06/2018 gelatin adsorbable (GELFOAM) sponge (CANCELED) ONCE PRN, Starting on Sun03/05/18 at 1016, Until Sun03/06/18 at 1708, Intra-Operative (Intra-Procedure) 1016 (Given - Provider: Angel Mccullough MD) hydrALAZINE (APRESOLINE) injection 10 mg [...] Hyatt RN) 0910 (Given - Provider: Shelli Martin, SADAF)1210 (Given - Provider: Shelli Martin RN) lidocaine [...] patch documented in this encounter Care Teams Jack Frame Tender Relationship Specialty Start Date End Date Saundra Reddy APRN PCP - General Family Medicine 01/02/18 12/02/18 documented as of this encounter
--- OUTSIDE RECORDS SUMMARY | 2023-12-04 01:10 | XMS_ITS | Encounter Summary ---
Author Organization [facility] [place] [address] Care Team Providers Care Multimedia Services Coordinator Name Role Phone KyleBeena cline SHEREE Primary Care Provider [phone] Reason for Referral * Diagnostic Test (Routine) - Closed Specialty Diagnoses / Procedures Referred By Contac t Referred To Contact Radiology Diagnoses PAD (peripheral artery disease) Procedures NM Pharmacologic Stress Myocardial Perfusion Rashawn Dawn MD [facility] [address] [place] [address] Referral ID Status Reason Start Date Expiration Date V isits Requested Visits Authorized [id number] Closed Specialty Service Requested 01/28/2019 01/28/2020 1 1 * Diagnostic Test (Routine) - Closed Specialty Diagnoses / Procedures Referred By Contac t Referred To Contact Radiology Diagnoses PAD (peripheral artery disease) Procedures NM Pharmacologic Stress CT Component Rashawn Dawn MD [facility] [address] [place] [address] Referral ID Status Reason Start Date Expiration Date V isits Requested Visits Authorized [id number] Closed Specialty Service Requested 01/28/2019 01/28/2020 1 1 Reason for Visit * Reason Comments Peripheral Arterial Disease Pre-op Exam Encounter Details Date Type Department Care Team (Latest Contact Info) Description 01/28/2019 9:30 AM EDT [facility] [place] [address] Rashawn Dawn MD [facility] [address] PAD (peripheral artery disease); Hypertension, unspecified type; Renal artery stenosis; Pre-operative cardiovascular examination Social History Tobacco Use Types Packs/Day Years [...] Sign Reading Time Taken Comments Blood Pressure 150/71 01/28/2019 9:48 AM EDT Pulse 89 01/28/2019 9:47 AM EDT Temperature - - Respiratory Rate - - Oxygen Saturation - - Inhaled Oxygen Concentration - - Weight 45.4 kg (100 lb) 01/28/2019 9:47 AM EDT Height 154.9 cm (5' 1) 01/28/2019 9:47 AM EDT Body Mass Index 18.89 01/28/2019 9:47 AM EDT documented in this encounter Progress Notes * Rashawn Dawn MD - 01/28/2019 9:30 AM EDT Images from the original note were not included. [facility] [place] [address] CARDIOVASCULAR MEDICINE OUTPATIENT CONSULTATION Emiliana Suresh Farmer [id number] 01/28/2019 REFERRING PROVIDER: Beena Wilkes CHIEF COMPLAINT: Chief Complaint Patient presents with ??? Peripheral Arterial Disease ??? Pre-op Exam PROBLEM LIST Patient Active Problem List Diagnosis ??? Drinks beer As of Jan 2019, patient reports 5 beers per night with plans to taper off before vascular surgery in February. ??? Depression ??? Gout ??? Aortoiliac occlusive disease ??? Hypertension ??? Intermittent claudication ??? History of renal stent HISTORY OF PRESENT ILLNESS: Ms. Farmer is a 54 year old woman with history of hypertension, PAD (prior infrarenal aortic stent and kissing iliac stents and left femoral cutdown in February 2018), prior smoker (just recently quit)who was recently seen by Dr. Gilbert for worsening LLE claudication. She also previously had right renal angioplasty in 1997. Plan is for aortobifemoral bypass. She presents for pre- operative cardiovascular evaluation. On discussion with patient, she reports that she is minimally active due to LLE pain. She has to walk up a flight of stairs to her house and reports that this is difficult for her due to claudication. Thus, she is not able to achieve >4 METs in the past year. She denies chest pain, shortness of breath, PND, orthopnea, lower extremity edema. She reports recent pre-syncope after initiation of lisinopril for poorly controlled hypertension. She has no syncope. ECG from 2018 with NSR and LBBB. She drinks 6-8 beers on a regular basis. Family history significant for her mother with multiple MIs and strokes. PAST MEDICAL HISTORY: Past Medical History: Diagnosis Date ??? Claudication ??? High blood pressure ??? Hypertension 01/08/2018 REVIEW OF SYSTEMS: No flowsheet data found. GENERAL HEENT CV PULM x All negative x All negative All negative x All negative Weight loss Headache Chest Pain Non-productive cough Weight gain Vision change Palpitations Productive cough Fevers Sinus congestion Orthopnea Wheezing Chills Hoarseness LE edema Hemoptysis Night sweats Epistaxis PND Pleuritic pain Fatigue Syncope SOB x Claudication HOOKER MSK RENAL ENDO GI x All negative x All negative x All negative x All negative Arthralgias Frequency Heat intolerance Blood in stool Myalgias Urgency Cold intolerance Dysphagia Weakness Hematuria Polydipsia Odynophagia Stiffness Flank pain Polyphagia Abdominal discomfort Dysuria Cushingoid Constipation Foamy urine Diarrhea Discharge Nausea/Vomiting LYMPH SKIN NEURO PSYCH x All negative x All negative x All negative x All negative Swollen nodes Rash Seizures Depressed affect Tender nodes Ulcers Tremors Occupational stress Diffuse nodes Bruising Spasticity Anxiety Local nodes Tanned skin Focal weakness Insomnia Night sweats Telangiectasias Diplopia Paresthesias Dizziness FAMILY HISTORY: No family history on file. SOCIAL HISTORY: Social History Tobacco Use ??? Smoking status: Former Smoker Packs/day: 0.25 Years: 0.00 Pack years: 0.00 Types: Cigarettes Last attempt to quit: 2019 Years since quittin.0 ??? Smokeless tobacco: Never Used Substance Use Topics ??? Alcohol use: Yes Alcohol/week: 35.0 standard drinks Types: 35 Cans of beer per week Comment: per pt, was asked to stop between now and surgery 03/07 MEDICATIONS: Current Outpatient Medications Medication Sig Dispense Refill [...] by mouth daily. No current facility-administered medications for this visit. ALLERGIES: Effexor [venlafaxine] and Trazodone PHYSICAL EXAMINATION: Vital Signs: BP 150/71 (BP Location (NBP): Left arm, Patient Position: Sitting) Pulse 89 Ht 154.9 cm (5' 1) Wt 45.4 kg (100 lb) BMI 18.89 kg/m?? Exam Details: General: Pleasant 54 y.o. female in no acute distress Eyes: No scleral icterus ENT: Moist mucous membranes Lymph: No cervical or supraclavicular lymphadenopathy Heart: Regular rate and rhythm, normal S1/S2, no murmurs/rubs/gallops appreciated, PMI non-displaced Lungs: Clear to ascultation bilaterally Abdomen: Soft, non-tender, non-distended, normoactive bowel sounds noted. No hepatosplenomegaly Extremities: No peripheral edema noted. No ulcerations noted. Vessels: No carotid bruits appreciated. Neuro: No gross abnormalities noted Psych: Alert and oriented 3 x, normal affect DATA PERSONALLY REVIEWED: Last 3 wbc, hgb, hct plt No results for input(s): WBC, HGB, HCT, PLATELET in the last 7068 hours. Last 3 Lytes Recent Labs 01/17/19 1145 CREATININE 0.61* EKG 03/05/18: NSR, LBBB SHA 12/03/18: Right ?Pressure (mm Hg) ?? SHA ??Waveform [...] occlusive disease. Deterioration compared to previous exam. Renal artery duplex 01/02/18: Right: Patent main renal artery with no evidence of hemodynamically significant stenosis. Left: Patent stented main renal artery with no evidence of hemodynamically significant stenosis. ASSESSMENT AND PLAN: #1 Intermittent claudication due to left iliac stent graft occlusion #2 PAD #3 Hypertension #4 Pre-operative cardiovascular evaluation Ms. Farmer is a 54 year old woman with history of PAD s/p aortic and kissing iliac stent grafts in 2018 now with occlusion of left iliac stent graft, with plan for aortobifemoral bypass given significant LLE claudication. At this point, due to claudication, she is not able to achieve >4 METs. Additionally, prior ECG with LBBB. I think it is worthwhile to undergo pharmacologic nuclear stress test for risk stratification given high risk surgery. Would plan to treat medically unless significant amount of ischemia. Additionally, her hypertension is poorly controlled. She has pre-syncope with lisinopril. Will substitute lisinopril for amlodipine. May need additional agent in the future, could try losartan. Will also increase atorvastatin dose to high intensity and obtain baseline lipids. Plan: 1. Pharmacologic nuclear stress test. Further recommendations pending results. 2. Increase atorvastatin to 40 mg daily. Baseline lipid panel today. 3. Stop lisinopril. 4. Discussed importance of cutting back on daily alcohol intake. She's at high risk for withdrawal as inpatient. 5. Return to clinic with me in 3 months with renal artery duplex prior to visit to re-evaluate hypertension. Thank you for allowing me to participate in the care of your patient. Please do not hesitate to contact me with any questions or concerns. Rashawn Dawn MD, MPH, [facility] Cardiovascular Public Affairs DirectorLearning Center [place] [address] documented in this encounter Plan of Treatment Not on file documented as of this encounter Results * NM Pharmacologic Stress [...] contact the number below. Rashawn Dawn MD [facility] [place] ORDERABLES * Nuclear Pharmacologic Stress Cardiology (03/06/2019 9:22 AM EDT) Anatomical Region Laterality Modality Other Rashawn Dawn MD CARDIAC SERVICES ORD ERABLES * NM Pharmacologic Stress Myocardial Perfusion (03/06/2019 9:16 AM EDT) Anatomical Region Laterality Modality Nuclear Medicine Impressions 03/06/2019 1:54 PM EDT No ischemia or scar. ??Left ventricular function is normal. Thank you for letting us participate in the care of this patient. For questions regarding this report, please contact the number below. ? Electronically signed by: Macario Sheldon [facility] ([phone]), at 03/06/2019 1:54 PM Narrative 03/06/2019 1:54 [...] contact the number below. Rashawn Dawn MD [facility] [place] ORDERABLES documented in this encounter Visit Diagnoses Diagnosis PAD (peripheral artery disease) Peripheral vascular disease, unspecified Hypertension, unspecified type Renal artery stenosis Atherosclerosis of renal artery Pre-operative cardiovascular examination PAD (peripheral artery disease) Peripheral vascular disease, unspecified PAD (peripheral artery disease) Peripheral vascular disease, unspecified documented in this encounter Care Teams Multimedia Services Coordinator Relationship Specialty Start Date End Date Beena Wilkes APRN [address] [place] [address] PCP - General Family Medicine 01/13/19 03/02/22 documented as of this encounter
--- OUTSIDE RECORDS SUMMARY | 2023-12-04 01:10 | XMS_ITS | Encounter Summary ---
Author Organization [facility] Address [facility] [place] [address] Care Team Providers Care Science Professor Name Role Phone Beena Wilkes APRN Primary Care Provider [phone] Encounter Details Date Type Department Care Team (Late st Contact Info) Description 01/17/2019 3:00 PM EDT Office Visit [place] [phone] Judy Gilbert MD [facility] [place] [address] PVD (peripheral vascular disease) with claudication Social [...] Sign Reading Time Taken Comments Blood Pressure 170/80 01/17/2019 3:10 PM EDT Pulse 73 01/17/2019 3:10 PM EDT Temperature - - Respiratory Rate - - Oxygen Saturation - - Inhaled Oxygen Concentration - - Weight 44.1 kg (97 lb 4 oz) 01/17/2019 3:10 PM E DT reported Height 156.2 cm (5' 1.5) 01/17/2019 3:10 PM EDT reported Body Mass Index 18.08 01/17/2019 3:10 PM EDT documented in this encounter Progress Notes * Judy Gilbert MD - 01/17/2019 3:00 PM EDT OUTPATIENT VASCULAR SURGERY FOLLOW-UP Reason for Visit: PAD History of Present Illness: Emiliana Farmer is a 54 y.o. female here for follow-up evaluation of her PAD. She was last seen by Laura Quiros last month at which time she reported a 3-4 week h/o worsening L thigh and buttock claudication. ABIs at that time were noted to be decreased on the left. She has h/o PAD s/p infrarenal aortic stent and kissing iliac stents 02/2018, with L femoral cutdown for failed access. At that time she quit smoking, however a few months ago she started again. She reportsthat she has quit again two days ago. She has h/o R renal angioplasty in 1997. She reports that prior to the return of her claudication she was able to walk up two flights of stairs without issues. Atherosclerotic Risk Factors: (n) DM (y) HTN (n) CAD (n) CHF (y) Hyperlipidemia (n) CVA reports that she quit smoking 2 days ago. She smoked 0.25 packs per day. She has never used smokeless tobacco. Prior Vascular History: 03/05/2018:??[employer] 14 x 40 stent in distal-most abdominal aorta,??7 x 59 iCast stent graftin right common iliac artery,??7 x 59 iCast stent graft in left common iliac artery Patient Active Problem List Diagnosis Code ??? Intermittent claudication I73.9 ??? History of renal stent [id number] ??? Hypertension I10 ??? Aortoiliac occlusive disease I74.09 Current Outpatient Medications: ??? lisinopril (PRINIVIL;ZESTRIL) 10 mg Tablet, Take 10 mg by mouth daily., Disp: , Rfl: ??? hydroCHLOROthiazide (HYDRODIURIL) 12.5 mg Tablet, Take 2 tablets by mouth daily., Disp: 90 tablet, Rfl: 0 ??? atorvastatin (LIPITOR) 20 mg Tablet, Take 20 mg by mouth., Disp: , Rfl: 0 ??? nicotine (NICODERM CQ) 21 mg/24 hr Patch 24 hr, Place 21 patches onto the skin daily., Disp: , Rfl: 0 ??? aspirin 81 mg Tablet, Delayed Release (E.C.), Take 81 mg by mouth daily., Disp: , Rfl: No current facility-administered medications for this visit. Allergies Allergen Reactions ??? Effexor [Venlafaxine] Pt [...] Denies Functional Status/Social Hx: Lives at home, on disability secondary to her claudication, Drives Car, recently quit Tobacco Use Family Hx: Negative for Thrombosis, Bleeding Disorders Physical Exam: BP 170/80 (BP Location (NBP): Left arm, Patient Position: Sitting, BP Cuff Sizes: Small Adult (20-26 cm)) Pulse 73 Ht 156.2 cm (5' 1.5) Comment: reported Wt 44.1 kg (97 lb 4 oz) Comment: reported BMI 18.08 kg/m?? General - NAD, appears stated age Neuro - Alert and Oriented, Motor Sensory grossly intact Skin - No prominent markings or lesions Ear, Nose, Throat - No masses, No lesions Cardiac - RRR, no murmurs Lungs - Clear Abd - Soft, scaphoid, NT, ND, palpable aortic pulse Musculoskeletal- full ROM upper and lower extremities Psych- alert oriented X3 Extremities - Warm, pink, no edema, delayed capillary refill on left. Well healed L femoral incision Vascular Exam: R L Carotid 2/2 bruit (n) 2/2 bruit (n) Radial 2/2 2/2 Femoral 2/2 0/2 Popliteal 2/2 0/2 DP 2/2 0/2 PT 2/2 0/2 Labs: Recent Results (from the past 72 hour(s)) Creatinine Result Value Ref Range Creatinine 0.61 (L) 0.70 - 1.20 mg/dL eGFR 104 >=60 mL/min/1.73 m?? eGFR 120 >=60 mL/min/1.73 m?? Studies: No flowsheet data found. SHA 7/16/19: Findings: ?? Right ?Pressure (mm Hg) ?? [...] Current ? 0.55(-.39) 0.56(-.38) 0.44 ? ---- ?? CTA 01/17/19: images reviewed. Patent infrarenal and R common iliac stent graft. The L common iliac stent graft appears narrowed in proximal region and is occluded. Iliac reconstitutes via the hypogastric artery. ? Assessment and Plan: 54 y.o. female with h/o PAD s/p aortic and kissing iliac stent grafts in 02/2018 with occlusion of the L iliac stent graft. The most durable repair would be an aortobifemoral bypass. I have recommended that she drink daily Boost in order to optimize her nutrition. I will refer her to Dr. Durga Dawn for pre-op eval an medical optimization. documented in this encounter Plan of Treatment Not on file documented as of this encounter Visit Diagnoses Diagnosis PVD (peripheral vascular disease) with claudication Peripheral vascular disease, unspecified documented in this encounter Care Teams Science Professor Relationship Specialty Start Date End Date Beena Wilkes, SHEREE [address] [place] [address] PCP - General Family Medicine 01/13/19 03/02/22 documented as of this encounter
--- OUTSIDE RECORDS SUMMARY | 2023-12-04 01:10 | XMS_ITS | Encounter Summary ---
Author Organization [facility] [place] [address] Care Team Providers Care Septic Tank Installer Name Role Phone Arlet Wilkesh SHEREE Primary Care Provider [phone] Reason for Referral * Diagnostic Test (Routine) - Closed Specialty Diagnoses / Procedures Referred By Contac t Referred To Contact Radiology Diagnoses PVD (peripheral vascular disease) with claudication Procedures CT Angiogram Aorta Lower Extremity Runoff Laura Quiros APRN [facility] [place] [address] [facility] [place] [address] Referral ID Status Reason Start Date Expiration Date V isits Requested Visits Authorized [id number] Closed Specialty Service Requested 12/03/2018 12/03/2019 1 1 Reason for Visit * Diagnostic Test (Routine) - Closed Specialty Diagnoses / Procedures Referred By Contac t Referred To Contact Radiology Diagnoses PVD (peripheral vascular disease) with claudication Procedures CT Angiogram Aorta Lower Extremity Runoff Laura Quiros APRN [facility] [place] [address] [facility] [place] [address] Referral ID Status Reason Start Date Expiration Date V isits Requested Visits Authorized [id number] Closed Specialty Service Requested 12/03/2018 12/03/2019 1 1 Encounter Details Date Type Department Care Team (Late st Contact Info) Description 01/17/2019 12:51 PM EDT - 01/17/2019 11:59 PM EDT Hospital [place] [address] Laura Quiros APRN [facility] [place] [address] PVD (peripheral vascular disease) with claudication Discharge Disposition: Home Social History Tobacco [...] (E.C.) Take 81 mg by mouth daily. lisinopril (PRINIVIL;ZESTRIL) 10 mg Tablet Take 10 mg by mouth daily. 01/28/2019 atorvastatin (LIPITOR) 20 mg Tablet Take 20 mg by mouth. 0 01/16/2018 019 documented as of this encounter Plan of Treatment Not on file documented as of this encounter Procedures Procedure Name Priority Date/Time Associated Diagnosis Comments CT ANGIOGRAM AORTA LOWER EXTREMITY RUNOFF Routine 01/17/2019 1:50 PM EDT PVD (peripheral vascular disease) with claudication documented in this encounter Results * CT Angiogram Aortic Lower Extremity Runoff (01/17/2019 1:50 PM EDT) Anatomical Region Laterality Modality Abdomen Computed Tomogra phy Impressions 01/17/2019 4:21 PM EDT 1. ??Occluded stent in LEFT common iliac artery. This is new. Reconstitution of the LEFT external iliac artery by collateral vessels which is then widely patent. 2. ??Bilaterally focally occluded dorsalis pedis arteries. Otherwise patent bilateral below the knee three-vessel runoff to the feet. 3. ??Severe stenosis of the distal abdominal aorta Thank you for letting us participate in the care of this patient. For questions regarding this report, please contact the number below. ? Electronically signed by: Amarjit Zimmerman [facility] ([phone]), at 01/17/2019 4:21 PM Narrative 01/17/2019 4:21 PM EDT EXAMINATION: CT ANGIOGRAM AORTA LOWER EXTREMITY RUNOFF CLINICAL HISTORY: PAD claudication, worsening ABIs TECHNIQUE: Helical CTA of the abdomen, pelvis and lower extremities was performed following intravenous administration of contrast. Administered 150.0 ml of OMNIPAQUE 350.00 mg/ml. MPRs were performed. 3-D images were generated on an independent workstation. COMPARISON: 01/22/2018 FINDINGS: VASCULAR FINDINGS Abdominal aorta: Stented distally. Extensive mural atherosclerotic calcification. Severe stenosis distally. Celiac: No stenosis. SMA: No stenosis. Right renal artery: No stenosis. Left renal artery: No stenosis. MAXIMO: Patent RIGHT LOWER EXTREMITY Common iliac artery: Stented and patent External iliac artery: Widely patent. Internal iliac artery: Widely patent. Common femoral artery: Widely patent. Superficial femoral artery: Widely patent. Profundus femoral artery: Widely patent. Popliteal artery: Widely patent Anterior tibial artery: Widely patent. Tibio-peroneal trunk: Widely patent. Posterior tibial artery: Widely patent. Peroneal artery: Widely patent. Dorsalis pedis: Widely patent. Plantar arteries: Widely patent. LEFT LOWER EXTREMITY Common iliac artery: Stented and occluded. This is new External iliac artery: Widely patent after reconstitution by collateral vessels from the internal iliac.. Internal iliac artery: Widely patent. Common femoral artery: Widely patent. Superficial femoral artery: Widely patent. Profundus femoral artery: Widely patent. Popliteal artery: Widely patent Anterior tibial artery: Widely patent. Tibio-peroneal trunk: Widely patent. Posterior tibial artery: Widely patent. Peroneal artery: Widely patent. Dorsalis pedis: Focally occluded (series 1024, image 1047) Plantar arteries: Widely patent. NON-VASCULAR FINDINGS Lower chest: Normal. Liver: None Bile ducts: Nondilated. Gallbladder: No calcified gallstones. Normal caliber wall. Pancreas: Normal attenuation without ductal dilatation. Spleen: Normal. Kidneys: Normal. Adrenals: Normal. Urinary Bladder: Distended Lymph Nodes: No enlarged lymph nodes. Bowel: Nondilated, no wall thickening. ?? Peritoneum and mesentery: No ascites, free air, or loculated fluid collection. No mesenteric inflammation. Osseous structures: No suspicious findings. Procedure Note Amarjit Zimmerman MD - 01/17/2019 EXAMINATION: CT ANGIOGRAM AORTA LOWER EXTREMITY RUNOFF CLINICAL HISTORY: PAD claudication, worsening ABIs TECHNIQUE: Helical CTA of the abdomen, pelvis and lower extremities was performed following intravenous administration of contrast. Qbpyioborevb808.0 ml of OMNIPAQUE 350.00 mg/ml. MPRs were performed. 3-D images weregenerated on an independent workstation. COMPARISON: 01/22/2018 FINDINGS: VASCULAR FINDINGS Abdominal aorta: Stented distally. Extensive mural atherosclerotic calcification. Severe stenosis distally. Celiac: No stenosis. SMA: No stenosis. Right renal artery: No stenosis. Left renal artery: No stenosis. MAXIMO: Patent RIGHT LOWER EXTREMITY Common iliac artery: Stented and patent External iliac artery: Widely patent. Internal iliac artery: Widely patent. Common femoral artery: Widely patent. Superficial femoral artery: Widely patent. Profundus femoral artery: Widely patent. Popliteal artery: Widely patent Anterior tibial artery: Widely patent. Tibio-peroneal trunk: Widely patent. Posterior tibial artery: Widely patent. Peroneal artery: Widely patent. Dorsalis pedis: Widely patent. Plantar arteries: Widely patent. LEFT LOWER EXTREMITY Common iliac artery: Stented and occluded. This is new External iliac artery: Widely patent after reconstitution by collateralvessels from the internal iliac.. Internal iliac artery: Widely patent. Common femoral artery: Widely patent. Superficial femoral artery: Widely patent. Profundus femoral artery: Widely patent. Popliteal artery: Widely patent Anterior tibial artery: Widely patent. Tibio-peroneal trunk: Widely patent. Posterior tibial artery: Widely patent. Peroneal artery: Widely patent. Dorsalis pedis: Focally occluded (series 1024, image 1047) Plantar arteries: Widely patent. NON-VASCULAR FINDINGS Lower chest: Normal. Liver: None Bile ducts: Nondilated. Gallbladder: No calcified gallstones. Normal caliber wall. Pancreas: Normal attenuation without ductal dilatation. Spleen: Normal. Kidneys: Normal. Adrenals: Normal. Urinary Bladder: Distended Lymph Nodes: No enlarged lymph nodes. Bowel: Nondilated, no wall thickening. Peritoneum and mesentery: No ascites, free air, or loculated fluidcollection. No mesenteric inflammation. Osseous structures: No suspicious findings. IMPRESSION 1. Occluded stent in LEFT common iliac artery. This is new.Reconstitution of the LEFT external iliac artery by collateral vessels which is thenwidely patent. 2. Bilaterally focally occluded dorsalis pedis arteries. Otherwisepatent bilateral below the knee three-vessel runoff to the feet. 3. Severe stenosis of the distal abdominal aorta Thank you for letting us participate in the care of this patient. Forquestions regarding this report, please contact the number below. Laura Quiros APRN [facility] ORDERABLES documented in this encounter Visit Diagnoses Diagnosis PVD (peripheral vascular disease) with claudication Peripheral vascular disease, unspecified documented in this encounter Administered Medications Inactive Administered Medications - up to 3 most recent administrations Medication Order MAR Action Action Date Dose Rate Site iohexol (OMNIPAQUE) 350 mg/mL solution 0-200 mL 0-200 mL, Intravenous, ONCE PRN, 1 dose, Starting on Sun01/17/19 at 1351, Until Sun01/17/19 at 1352, Per Protocol, Warning Vesicant/Irritant Medication , Radiology Contrast, Routine Given 01/17/2019 1:52 PM EDT 150 mLs documented in this encounter Care Teams Septic Tank Installer Relationship Specialty Start Date End Date Beena Wilkes APRN [address] [facility] [address] PCP - General Family Medicine 01/13/19 03/02/22 documented as of this encounter
--- OUTSIDE RECORDS SUMMARY | 2023-12-04 01:10 | XMS_ITS | Encounter Summary ---
Author Organization [facility] [place] [address] Care Team Providers Care Operations Research Engineer Name Role Phone Beena Wilkes APRN Primary Care Provider [phone] Encounter Details Date Type Department Care Team (Late st Contact Info) Description 01/23/2019 Orders Only [place] [id number] Iris Farmer RN PAD (peripheral artery disease) Social History Tobacco [...] Type Priority Associated Diagnoses Orde r Schedule BYPASS GRAFT, AORTOBIFEMORAL W\ SYNTHETIC CONDUIT Procedures Routine One Time for 1 Occurrences starting 01/23/2019 until 01/23/2019 documented as of this encounter Results * EKG 12 Lead (01/28/2019 11:13 AM EDT) Ventricular rate 69 BPM MUSE SYSTEM Atrial Rate 69 BPM MUSE SYSTEM P-R Interval 178 ms MUSE SYSTEM QRS Duration 126 ms MUSE SYSTEM Q-T Interval 446 ms MUSE SYSTEM QTC Calculated (Bezet) 477 ms MUSE SYSTEM Calculated P [place] 64 degrees MUSE SYSTEM Calculated R [place] 60 degrees MUSE SYSTEM Calculated T [place] -39 degrees MUSE SYSTEM INTERPRETATION Normal sinus rhythm Non-specific intra-ventric ular conduction block Cannot rule out Septal infarct (cited on or before 28-JAN-2019) T wave abnormality, consider inferior ischemia Abnormal ECG When compared with ECG of 16-OCT-2018 07:04, T wave inversion now evident in Inferior leads Confirmed by MD JONAH, ANITHA ([id number]) on 01/28/2019 12:31:54 PM MUSE SYSTEM 01/28/2019 11:1 3 AM EDT 01/28/2019 12:31 PM EDT Judy Gilbert MD ECG ORDERABLES MUSE SYSTEM * Prealbumin (01/28/2019 11:11 AM EDT) Prealbumin 33 20 - 40 mg/dL [facility] Comment: Prealbumin levels are generally lower in the pediatric population; adult concentrations are usually attained near puberty. Blood specimen (specimen) 01/28/2019 11:11 AM EDT 01/28/2019 11:40 AM EDT Narrative Resulting Agency Comment Spec In Lab Judy Gilbert MD CHEMISTRY ORDER ZAINA [facility] [place] [address] * (ABNORMAL) Basic Metabolic Panel (non-fasting) (01/28/2019 11:11 AM EDT) Glucose Lvl 120 65 - 199 mg/dL [facility] Comment:Diabetes: >=200 mg/d L plus symptoms BUN 12 8 - 18 mg/dL [facility] Creatinine 0.53(L) 0.70 - 1.20 mg/dL [facility] Sodium 139 135 - 145 mmol/L [facility] Potassium 4.4 3.5 - 5.0 mmol/L [facility] Comment: Please note: ??Patients with WBC >100,000 may have falsely elevated Potassium levels. ??For accurate Potassium quantification in these patients send serum separator tube (gold top) for subsequent determinations. ??Contact the Clinical Chemistry Laboratory if there are any questions. Chloride 101 98 - 107 mmol/L [facility] CO2 27 22 - 31 mmol/L [facility] Anion Gap 11 5 - 15 mmol/L [facility] Calcium 9.2 8.5 - 10.5 mg/dL [facility] Estimated GFR 108 >=60 mL/min/1. 73 m?? [facility] Comment: The eGFR was calculated using the CKD-EPI equation. As with all creatinine based estimates of kidney function, eGFR values calculated with the CKD-EPI equation are not accurate in patients with acute kidney failure, extremes of body mass or the acutely ill. [email or web address]/[email or web address]ULSAnkf eGFR 126 >=60 mL/min/1. 73 m?? [facility] Comment: The eGFR was calculated using the CKD-EPI equation. As with all creatinine based estimates of kidney function, eGFR values calculated with the CKD-EPI equation are not accurate in patients with acute kidney failure, extremes of body mass or the acutely ill. [email or web address]/[email or web address]kf Blood specimen (specimen) 01/28/2019 11:11 AM EDT 01/28/2019 11:40 AM EDT Narrative Resulting Agency Comment Spec In Lab Judy Gilbert MD CHEMISTRY ORDER ZAINA [facility] [place] [address] * (ABNORMAL) Hemogram (01/28/2019 11:11 AM EDT) WBC 6.6 4.0 - 9.5 x10(3)/[facility]ORATORY RBC 4.16 4.00 - 5.21 x10(6)/[facility] Hemoglobin 13.3 11.7 - 15.5 gm/dL [facility] Hematocrit 40.4 35.7 - 45.8 % [facility] MCV 97.1(H) 82.6 - 94.4 fL [facility] MCH 32.0 27.1 - 32.0 pg [facility] MCHC 32.9 31.7 - 35.0 gm/dL [facility] Platelets 287 145 - 357 x10(3)/[facility] LABORATORY RDWSD 44.3 37.0 - 46.0 fL [facility] RDWCV 12.3 11.5 - 14.1 % [facility] MPV 10.0 7.6 - 12.9 fL [facility] nRBC % Auto 0.0 % [facility] nRBC Abs Auto 0.000 0.000 - 0.000 x10(3)/[facility] Blood specimen (specimen) 01/28/2019 11:11 AM EDT 01/28/2019 11:40 AM EDT Narrative Resulting Agency Comment Spec In Lab Judy Gilbert MD HEMATOLOGY HALEY GARCIA Performing Organization Address City/State/[facility] Co de Phone Number [facility] [place] [address] documented in this encounter Visit Diagnoses Diagnosis PAD (peripheral artery disease) Peripheral vascular disease, unspecified documented in this encounter Care Teams Operations Research Engineer Relationship Specialty Start Date End Date Beena Wilkes, SHEREE [address] [place] [address] PCP - General Family Medicine 01/13/19 03/02/22 documented as of this encounter
--- OUTSIDE RECORDS SUMMARY | 2023-12-04 01:10 | XMS_ITS | Encounter Summary ---
Author Organization [facility] [address] Care Team Providers Care Rn Vascular Name Role Phone Jorge LuisSaundra hogan Sunil BENTLEY Primary Care Provider [phone] Reason for Visit * Auth/Cert Specialty Diagnoses / Procedures Referred By Beverley guardado Referred To Contact Diagnoses claudication Procedures PRO ENDOVASC REPAIR DEPLOYMENT [id number] ENDOGRAFT 1 Referral ID Status Reason Start Date Expiration Date Visits Re quested Visits Authorized [id number] 1 1 Encounter Details Date Type Department Care Team (Latest Contact Info) Description 03/05/2018 8:45 AM EDT - 03/05/2018 11:59 PM EDT Hospital Encounter [place] [address] Discharge Disposition: Home Social History Tobacco Use [...] Procedure Name Priority Date/Time Associated Diagnosis Comments IR OR VASC ANGIOGRAM IMAGE STORAGE ONLY Routine 03/05/2018 8:45 AM EDT documented in this encounter Results * IR OR VASC Aniogram Image Storage Only (03/05/2018 8:45 AM EDT) Narrative DAVE - 03/05/2018 8:45 AM EDT This exam is for storage only and is auto-finalizing. Yves Vegas MD IMG FILM LIBRARY ORD ERABLES [place], [place] documented in this encounter Visit Diagnoses Not on filedocumented in this encounter Care Teams Rn Vascular Relationship Specialty Start Date End Date Saundra Reddy APRN PCP - General Family Medicine 01/02/18 12/02/18 documented as of this encounter
--- OUTSIDE RECORDS SUMMARY | 2023-12-04 01:10 | XMS_ITS | Encounter Summary ---
Author Organization [facility] Address [facility] [place] [address] Care Team Providers Care Triple Valve Mechanic Name Role Phone Beena Wilkes APRN Primary Care Provider [phone] Reason for Visit * Reason Comments Medication Refill Encounter Details Date Type Department Care Team (Late st Contact Info) Description 04/28/2018 Refill [place] [address] Yves Treviño MD [facility] [place] [address] Social History Tobacco Use Types Packs/Day Years [...] on filedocumented in this encounter Care Teams Triple Valve Mechanic Relationship Specialty Start Date End Date Beena Wilkes APRN [address] [place] [address] PCP - General Family Medicine 01/13/19 03/02/22 documented as of this encounter
--- OUTSIDE RECORDS SUMMARY | 2023-12-04 01:10 | XMS_ITS | Encounter Summary ---
Author Organization [facility] [place] [address] Care Team Providers Care Truck Driver Heavy Name Role Phone Saundra Reddy APRN Primary Care Provider [phone] Reason for Visit * Auth/Cert Specialty Diagnoses / Procedures Referred By Beverley guardado Referred To Contact Diagnoses claudication Procedures PRO ENDOVASC REPAIR DEPLOYMENT [id number] ENDOGRAFT 1 Referral ID Status Reason Start Date Expiration Date Visits Re quested Visits Authorized [id number] 1 1 Encounter Details Date Type Department Care Team (Late st Contact Info) Description 03/05/2018 7:32 AM EDT Anesthesia Event [place] [id number] Taqueria Gore MD [facility] [place] [address] Joe Cano CRNA [facility] [place] [address] Anesthesia Record Procedure Summary Procedure Name Responsible Anesthesiologist Anesthesia Start Time Anesthesia Stop Time TRANSCATH PLACEMENT INTRAVASCULAR STENT, OPN/PERQ, INITIAL ARTERY, S&I (WRVU 8.75) (Abdomen) Taqueria Gore MD 03/05/18 0732 03/05/18 1139 Events Date Time Event Comment 03/05/2018 0720 0732 AN Verify 0732 Start 0735 An Start Data 0746 An Induction 0746 An Intubation 0758 Anesthesia Ready 0845 Break/Relief In TAQUERIA Olsen MD 0846 ABG Data Arterial Blood Gas result: pH 7.49 pCO2 32 pO2 276 %O2 Sat 98 FiO2 0.58 HCO3 24 BE 0.6 Hb 12.7 K 3.6 Glucose 159 Lactate 1.8 0859 Break/Relief Out 1116 Extubation/LMA Out 1121 an stop data 1139 Recovery or ICU Handoff Gunjan ent care was transferred to the destination unit staff after review of the patient's medical history, current anesthetic/surgical status and plan, according to the Provider Handoff Checklist. 1139 Stop Meds Name Total Midazolam 2 mg fentaNYL 200 mcg IV Lidocaine 100 mg Propofol 150 mg Rocuronium 50 mg PHENYLephrine 280 mcg Ondansetron 8 mg Dexamethasone 8 mg Neostigmine 2 mg Glycopyrrolate 0.4 mg ceFAZolin (ANCEF) 2g in dextrose 5% 100 mL 2 g Propofol INF 201.58 mg Heparin 7,000 Units Protamine 30 mg lactated Ringers infusion 1,000 mL 500 m L Lactated Ringers 500 mL * Agents Name O2 Air N2O Sevoflurane (et) * Blood No blood administrations on file. Lines, Drains, and Airways Type Details Placement Removal NG/OG Tube orogastric; 16 Fr; mouth; Secured; LDA not present upon assessment; 03/05/18; 1120 03/05/18 0810 by 03/05/18 1120 by Viridiana Hyatt, RN (RETIRED) Peripheral IV Line - Single Lumen 03/05/18; 0725; metacarpal vein (top of hand), right; sipa-mth-wufbbf catheter system; 20 gauge, 3/4 in length; intradermal injection, tolerated well, appears comfortable; 03/06/18; 1404 03/05/18 0725 by Aishwarya Floyd RN 03/06/18 1404 by Shelli Morel RN ETT Mask Ventilation: Ea sy (1); ETT Type: Cuffed, Oral; ETT Size: 7 mm; Mac Blade: 3; Notes: Asleep, Pre-O2, Stylette; Attempts: 1; Laryngoscopy Grade: 1; ETT Placement Verified By: Auscultation, Capnometry, Visual; Secured at Teeth: 21 cm; Inserted by: robyn; Removal Date: 03/05/18; Removal Time: 1116 03/05/18 0746 by Joe Cano, SUPERVISOR MACHINE SETTER 03/05/18 1116 by Joe Cano CRNA Arterial Line 03/05/18; 0750; radi al artery, right; 20 gauge; tn; Sterile Prep, Sterile Gloves; no longer indicated, catheter intact, removed per policy; 03/05/18; 201403/05/18 0750 by Joe Cano, SUPERVISOR MACHINE SETTER 03/05/182014 by Viridiana Hyatt RN (RETIRED) Peripheral IV Line - Single Lumen 03/05/18; 0758; basilic vein (medial side of arm), right; mlom-ors-oowajn catheter system; 16 gauge; 03/06/18; 1404 03/05/18 0758 by Joe Cano, SUPERVISOR MACHINE SETTER 03/06/18 1404 by Shelli Morel RN Urethral Catheter 03/05/18; 0800; Surg leticia longer than 2 hours; Physician order; indwelling double lumen catheter; latex; 14; inserted at this facility (Inserted w ease by Bill Rodrigez RN.); 1; 5; 10; none (Inserted after adm [place]); leg bag to dependent drainage; 03/06/18; 0300 03/05/18 0800 by Vangie Rodrigez RN 03/06/18 0300 by Zoran Mcclendon RN Incision 03/05/18; 0827; groi n (puncture site); LDA not present upon assessment; 04/05/19; 0721 03/05/18 0827 by Vangie Rodrigez RN 04/05/19 0721 by Mackenzie White RN Incision 03/05/18; 0902; groi n; LDA not present upon assessment; 04/05/19; 0721 03/05/18 0902 by Vangie Rodrigez RN 04/05/19 0721 by Mackenzie White RN documented in this encounter Social History Tobacco Use Types Packs/Day Years Used Date Smoking Tobacco: Former Smokeless Tobacco: Never Sex and Gender Information Value Date Recorded Sex Assigned at Not on file Gender Identity Not on file Sexual Orientation Not on file documented as of this encounter OR Notes * Anesthesia Postprocedure Evaluation - Taqueria Gore MD - 03/05/2018 12:[address] [facility] Department of Anesthesiology Post-procedure Note Patient: Emiliana Farmer Procedure Summary Date: 03/05/18 Room / Location: [address] MAIN OR Anesthesia Start: 731 Anesthesia Stop: 1138 Procedures: TRANSCATH PLACEMENT INTRAVASCULAR STENT, OPN/PERQ, INITIAL ARTERY, S&I (WRVU 9) (N/A Abdomen) REVSC OPN\PRQ ILIAC ART W\STNT PLMT & ANGIOP SAME VSL BILAT (WRVU 10) (Bilateral Groin) REVSC OPN\PRQ ILIAC ART W\STNT & ANGIOP EA IPSILATERAL VSL-ALEX (WRVU 4.25) (Bilateral Groin) Diagnosis: (claudication) Surgeon: Yves Vegas MD Responsible Provider: Taqueria Gore MD Anesthesia Type: general ASA Status: 3 All Anesthesia Providers: Anesthesiologist: Taqueria Gore MD SUPERVISOR MACHINE SETTER: Joe Cano CRNA Patient Location: PACU/[facility] Level of Consciousness: Conscious but Sleepy Pain Management: Satisfactory Analgesia PONV: None Cardiovascular Status: At Baseline Respiratory Status: Stable Respiratory Status and Supplemental O2 (NC or FM) Postoperative Fluid Status: Intravascular EUvolemia Possible Anesthetic Complications: NONE apparent at time of evaluation Final Primary Anesthesia Type: General (The anesthetic type performed was the same as planned.) Comments: * Anesthesia Preprocedure Evaluation - Taqueria Gore MD - 03/05/2018 3:29 AM EDT Pre-Anesthesia Evaluation for: Emiliana Farmer a 53 y.o. female. Procedure(s): @EVG, AORTA/ILIAC ART RPR [id number] ENDOGRAFT; ANEURX Patient Active Problem List Diagnosis ??? Hypertension ??? Intermittent claudication ??? History of renal stent Past Medical History: Diagnosis Date ??? Hypertension 01/08/2018 No past surgical history on file. Social History Tobacco Use ??? Smoking status: Former Smoker ??? Smokeless tobacco: Never Used Substance Use Topics ??? Alcohol use: Not on file Social History Substance and Sexual Activity Drug Use Not on file No Known Allergies Medications: MAR and/or home medications have been reviewed. Physical Exam: There were no vitals filed for this visit. There is no height or weight on file to calculate BMI. Airway Assessment: Mallampati: II TM distance: >3 FB Neck ROM: full Cardiovascular Assessment: Rhythm: regular Rate: normal Pulmonary Assessment: breath sounds clear to auscultation Dental Assessment: - normal exam Misc Assessment: Patient is wearing No contact(s). IV access: Peripheral line Anesthesia Plan: ASA 3 general, Region - Major Vascular Informed Consent: Anesthetic plan and risks discussed with patient. Use of blood products discussed with patient who consented to blood products. Plan discussed with SUPERVISOR MACHINE SETTER. PAT Staff Note Attending NOTE Brief HPI: 53 y.o. with claudication to OR for aortoiliac EVG Diagnosis ??? Intermittent claudication ??? History of renal stent ??? Hypertension/HLD: SBP normally 120s per patient Past Medical History: Diagnosis Date ??? Hypertension 01/08/2018 METS: limited by leg pain Cardiac Symptoms: denies EKG: ordered ECHO: none LABS: Lab Results Component Value Date CREATININE 0.56 (L) 01/08/2018 Type and Screen: No results found for: ABORH Past anesthetic problems: denies Previous airway notes (on eDH): none NPO status: Reviewed and appropriate Anesthetic Plan: GETA Monitoring: Standard KENNA jordan monitors documented in this encounter Plan of Treatment [...] Indication for (Active or Suspected): Prophylaxis Given 03/05/2018 7:58 AM EDT 2 g dexamethasone (DECADRON) injection PRN, Starting on Sun03/05/18 at 0824, Until Sun03/05/18 at 1141, Anesthesia Intra-op, Routine Given 03/05/2018 8:24 AM EDT 8 mg fentaNYL 50 mcg/mL multi-dose injection PRN, Starting on Sun03/05/18 at 0746, Until Sun03/05/18 at 1141, Anesthesia Intra-op, Routine Given 03/05/2018 10:51 AM EDT 25 mcg Given 03/05/2018 10:15 AM EDT 25 mcg Given 03/05/2018 9:45 AM EDT 25 mcg glycopyrrolate (ROBINUL) multi-dose injection PRN, Starting on Sun03/05/18 at 1059, Until Sun03/05/18 at 1141, Anesthesia Intra-op, Routine Given 03/05/2018 10:59 AM EDT 0.4 mg heparin (porcine) injection PRN, Starting on Sun03/05/18 at 0857, Until Sun03/05/18 at 1141, Anesthesia Intra-op, Routine Given 03/05/2018 9:44 AM EDT 1,000 Units Given 03/05/2018 9:19 AM EDT 1,000 Units Given 03/05/2018 8:57 AM EDT 5,000 Units lactated Ringers infusion CONTINUOUS PRN, Starting on Sun03/05/18 at 0755, Until Sun03/05/18 at 1141, Anesthesia Intra-op New Bag 03/05/2018 7:55 AM EDT lidocaine (PF) (XYLOCAINE) 100 mg/5 mL (2 %) injection PRN, Starting on Sun03/05/18 at 0746, Until Sun03/05/18 at 1141, Anesthesia Intra-op, Routine Given 03/05/2018 7:46 AM EDT 100 mg midazolam (PF) (VERSED) multi-dose injection PRN, Starting on Sun03/05/18 at 0732, Until Sun03/05/18 at 1141, Anesthesia Intra-op, Routine Given 03/05/2018 7:32 AM EDT 2 mg neostigmine (BLOXIVERZ) injection PRN, Starting on Sun03/05/18 at 1059, Until Sun03/05/18 at 1141, Anesthesia Intra-op, Routine Given 03/05/2018 10:59 AM EDT 2 mg ondansetron (ZOFRAN) injection PRN, Starting on Sun03/05/18 at 0824, Until Sun03/05/18 at 1141, Anesthesia Intra-op, Routine Given 03/05/2018 11:00 AM EDT 4 mg Given 03/05/2018 8:24 AM EDT 4 mg PHENYLephrine in NS (PF) (ANURAG-SYNEPHRINE) 0.8 mg/10 mL (80 mcg/mL) multi-dose injection Syrg PRN, Starting on Sun03/05/18 at 0948, Until Sun03/05/18 at 1141, Anesthesia Intra-op, Routine Given 03/05/2018 10:43 AM EDT 40 mcg Given 03/05/2018 10:33 AM EDT 40 mcg Given 03/05/2018 10:27 AM EDT 40 mcg propofol (DIPRIVAN) 10 mg/mL bolus injection (Anesthesia) PRN, Starting on Sun03/05/18 at 0746, Until Sun03/05/18 at 1141, Anesthesia Intra-op Given 03/05/2018 7:46 AM EDT 150 mg propofol (DIPRIVAN) infusion CONTINUOUS PRN, Starting on Sun03/05/18 at 0746, Until Sun03/05/18 at 1141, Anesthesia Intra-op, Routine New Bag 03/05/2018 7:58 AM EDT 30 mcg/kg/mi n 8.2 mL/hr protamine injection PRN, Starting on Sun03/05/18 at 1051, Until Sun03/05/18 at 1141, Anesthesia Intra-op, Routine Given 03/05/2018 10:58 AM EDT 5 mg Given 03/05/2018 10:57 AM EDT 5 mg Given 03/05/2018 10:56 AM EDT 5 mg rocuronium (ZEMURON) multi-dose injection PRN, Starting on Sun03/05/18 at 0746, Until Sun03/05/18 at 1141, Anesthesia Intra-op, Routine Given 03/05/2018 7:46 AM EDT 50 mg documented in this encounter Care Teams Truck Driver Heavy Relationship Specialty Start Date End Date Saundra Reddy APRN PCP - General Family Medicine 01/02/18 12/02/18 documented as of this encounter
--- OUTSIDE RECORDS SUMMARY | 2023-12-04 01:10 | XMS_ITS | Encounter Summary ---
Author Organization [facility] Address [facility] [place] [address] Care Team Providers Care Vice President Research Name Role Phone Jorge LuisSaundra hogan Sunil BENTLEY Primary Care Provider [phone] Reason for Referral * Diagnostic Test (Routine) - Closed Specialty Diagnoses / Procedures Referred By Contac t Referred To Contact Radiology Diagnoses Atherosclerosis of coquille artery of both lower extremities with intermittent claudication Procedures CT Angiogram Aorta Lower Extremity Runoff Lesley Serrano PA [facility] [place] [address] [facility] [place] [address] Referral ID Status Reason Start Date Expiration Date V isits Requested Visits Authorized [id number] Closed Specialty Service Requested 01/07/2018 02/23/2018 1 1 Encounter Details Date Type Department Care Team (Late st Contact Info) Description 01/07/2018 Orders [place] [phone] Lesley Serrano [place] [facility] [place] [address] Atherosclerosis of coquille artery of both lower extremities with intermittent claudication Social History Tobacco Use Types Packs/Day Years Used Date Smoking Tobacco: Never Assessed Sex and Gender Information Value Date Recorded Sex Assigned at Not on file Gender Identity Not on file Sexual Orientation Not on file documented as of this encounter Plan of Treatment Not on file documented as of this encounter Results * CT Angiogram Aorta Lower Extremity Runoff (01/22/2018 7:58 AM EDT) Anatomical Region Laterality Modality Abdomen Computed Tomogra phy Impressions 01/22/2018 11:20 AM EDT 1. ??Severe stenosis of the distal aorta proximal to the bifurcation. 2. 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 3. ??Patent bilateral three-vessel kzomd-lpj-xile runoff to the foot ?? 4. ??Remainder [...] of the remainder. 3. Patent bilateral three-vessel hkwzw-nok-wnyq runoff to the foot 4. Remainder of the vascular findings as above. 5. Fullness of the vaginal vault and hyperenhancement and apparentthickening of the endometrium. Recommend physical exam correlation and considerultrasound. I have personally reviewed the image(s) and the residents interpretationand agree with the findings, Amarjit Zimmerman at 01/22/2018 11:20 AM 11:20 AM Consuelo Toledo MD IMG CT ORDERABLES * (ABNORMAL) Creatinine (01/08/2018 9:16 AM EDT) Creatinine 0.56(L) 0.70 - 1.20 mg/dL [facility] Estimated GFR 108 >=60 mL/min/1.7 3 m?? [facility] Comment: The eGFR was calculated using the CKD-EPI equation. As with all creatinine based estimates of kidney function, eGFR values calculated with the CKD-EPI equation are not accurate in patients with acute kidney failure, extremes of body mass or the acutely ill. [email or web address] eGFR 125 >=60 mL/min/1.7 3 m?? [facility] Comment: The eGFR was calculated using the CKD-EPI equation. As with all creatinine based estimates of kidney function, eGFR values calculated with the CKD-EPI equation are not accurate in patients with acute kidney failure, extremes of body mass or the acutely ill. [email or web address] Blood specimen (specimen) 01/08/2018 9:16 AM EDT 01/08/2018 9:25 AM EDT Narrative Resulting Agency Comment Spec In Lab Consuelo Toledo MD CHEMISTRY ORDERABLES [facility] [place] [address] documented in this encounter Visit Diagnoses Diagnosis Atherosclerosis of coquille artery of both lower extremities with intermittent claudication Atherosclerosis of coquille arteries of the extremities with intermittent claudication Atherosclerosis of coquille artery of both lower extremities with intermittent claudication Atherosclerosis of coquille arteries of the extremities with intermittent claudication documented in this encounter Care Teams Vice President Research Relationship Specialty Start Date End Date Saundra Reddy APRN PCP - General Family Medicine 01/02/18 12/02/18 documented as of this encounter
--- OUTSIDE RECORDS SUMMARY | 2023-12-04 01:10 | XMS_ITS | Encounter Summary ---
Author Organization [facility] Address [facility] [place] [address] Care Team Providers Care Malted Milk Masher Name Role Phone None Primary Care Provider Unavailabl e Reason for Referral * Diagnostic Test (Routine) - Closed Specialty Diagnoses / Procedures Referred By Contwilberto t Referred To Contact Radiology Diagnoses PVD (peripheral vascular disease) with claudication Procedures CT Angiogram Aorta Lower Extremity Runoff Laura Quiros APRN [facility] [place] [address] [facility] [place] [address] Referral ID Status Reason Start Date Expiration Date V isits Requested Visits Authorized [id number] Closed Specialty Service Requested 12/03/2018 12/03/2019 1 1 Encounter Details Date Type Department Care Team (Late st Contact Info) Description 12/03/2018 9:00 AM EDT Office [place] [address] Laura Quiros APRN [facility] [place] [address] PVD (peripheral vascular disease) with claudication Social History Tobacco Use Types Packs/Day Years Used Date Smoking Tobacco: Some Days Cigarettes Smokeless Tobacco: Never Sex and Gender Information Value Date Recorded Sex Assigned at Not on file Gender Identity Not on file Sexual Orientation Not on file documented as of this encounter Last Filed Vital Signs Vital Sign Reading Time Taken Comments Blood Pressure 186/80 12/03/2018 8:55 AM EDT Pulse 61 12/03/2018 8:55 AM EDT Temperature - - Respiratory Rate - - Oxygen Saturation - - Inhaled Oxygen Concentration - - Weight 44.5 kg (98 lb) 12/03/2018 8:55 AM EDT re ported Height 154.9 cm (5' 1) 12/03/2018 8:55 AM EDT r eported Body Mass Index 18.52 12/03/2018 8:55 AM EDT documented in this encounter Progress Notes * Laura Quiros, BODY ARTIST - 12/03/2018 9:00 AM EDT Reason for Visit:F/u SHA's HPI: 53F??former??smoker??(quit Dec, 2017)??with hypertension, right renal artery stenosis sp angioplasty [id number], and short distance bilateral buttocks and thigh claudication related to aortoiliac disaese. Pt reports cramping pain in her thighs, right worse than left after walking 50 feet. 53F??former??smoker??(quit Dec, 2017)??with hypertension, right renal artery stenosis sp angioplasty [id number], and short distance bilateral buttocks and thigh claudication related to aortoiliac disaese. Pt reports cramping pain in her hips, thighs and down her left leg. This has gotten significantly worse in last 3-4 weeks. She states this is just like the claudication she had prior to her 2018 procedure. She had difficulty walking to clinic from main entrance this morning and had to stop x 1. Norest pain, no tissue loss. No CP, no SOB. She continues to smoke 6-7 cigs day. Is no longer taking, ASA, Statin or Antihypertensives. Prior Vascular History: 03/05/2018: Bard Lifestyle 14 x 40 stent in distal-most abdominal aorta, 7 x 59 iCast stent graft in right common iliac artery, 7 x 59 iCast stent graft in left common iliac artery Patient Active Problem List Diagnosis Code ??? Intermittent claudication I73.9 ??? History of renal stent [id number] ??? Hypertension I10 ??? Aortoiliac occlusive disease I74.09 Allergies Allergen Reactions ??? Effexor [Venlafaxine] Pt unsure of reaction was 25 years ago ??? Trazodone Pt unsure of reaction was 25 years ago Current Outpatient Medications on File Prior to Visit Medication Sig Dispense Refill ??? acetaminophen (TYLENOL) 325 mg Tablet Take 2 tablets by mouth every 6 hours as needed for Pain.(Patient not taking: Reported on 07/09/2018) ??? clopidogrel (PLAVIX) 75 mg Tablet Take 1 tablet by mouth daily. (Patient not taking: Reported on 07/09/2018) 90 tablet 3 ??? hydroCHLOROthiazide (HYDRODIURIL) 12.5 mg Tablet Take 2 tablets by mouth daily. (Patient not taking: Reported on 07/09/2018) 90 tablet 0 ??? atorvastatin (LIPITOR) 20 mg Tablet Take 20 mg by mouth. 0 ??? nicotine (NICODERM CQ) 21 mg/[address] 21 patches onto the skin daily. 0 ??? aspirin 81 mg Tablet, Delayed Release (E.C.) Take 81 mg by mouth daily. No current facility-administered medications on file prior to visit. ROS: Negative except where noted in HPI . Patient Active Problem List Diagnosis Code ??? Intermittent claudication I73.9 ??? History of renal stent [id number] ??? Hypertension I10 ??? Aortoiliac occlusive disease I74.09 Allergies Allergen Reactions ??? Effexor [Venlafaxine] Pt unsure of reaction was 25 years ago ??? Trazodone Pt unsure of reaction was 25 years ago Current Outpatient Medications on File Prior to Visit Medication Sig Dispense Refill ??? acetaminophen (TYLENOL) 325 mg Tablet Take 2 tablets by mouth every 6 hours as needed for Pain.(Patient not taking: Reported on 07/09/2018) ??? clopidogrel (PLAVIX) 75 mg Tablet Take 1 tablet by mouth daily. (Patient not taking: Reported on 07/09/2018) 90 tablet 3 ??? hydroCHLOROthiazide (HYDRODIURIL) 12.5 mg Tablet Take 2 tablets by mouth daily. (Patient not taking: Reported on 07/09/2018) 90 tablet 0 ??? atorvastatin (LIPITOR) 20 mg Tablet Take 20 mg by mouth. 0 ??? nicotine (NICODERM CQ) 21 mg/[address] 21 patches onto the skin daily. 0 ??? aspirin 81 mg Tablet, Delayed Release (E.C.) Take 81 mg by mouth daily. No current facility-administered medications on file prior to visit. PE Vitals: 12/03/18 0855 BP: 186/80 BP Location (NBP): Right arm Patient Position: Sitting BP Cuff Sizes: Adult (25-34 cm) Pulse: 61 Weight: 44.5 kg (98 lb) Height: 154.9 cm (5' 1) General: NAD, appears well Neuro: Alert and oriented, motor sensory grossly intact Lungs: CTA Heart: RRR Abd: Soft, NT, ND, no palpable pulsatile masses Extremity - [place], warm, no ulceration, brisk capillary refill, no edema Vascular: R L Carotid 2/2 bruit (n) 2/2 bruit (n) Radial 2/2 2/2 Femoral 2/2 2/2 Popliteal 2/2 /2 DP 2/2 /2 PT 2/2 /2 SHA's Findings: ?? Right ?Pressure (mm Hg) ?? [...] ? 0.55(-.39) 0.56(-.38) 0.44 ? ---- ?? Assessment/Plan: 53 yo female 03/05/2018: Bard Lifestyle 14 x 40 stent in distal-most abdominal aorta, 7 x 59 iCast stent graft in right common iliac artery, 7 x 59 iCast stent graft in left common iliac artery. She is now noting return of her hip, thigh, calf claudication symptoms and they have become worse in last month. She had to stop while walking from main entrance to 3. She has not been taking any medications for several months due to lack of insurance to include ASA. Reviewed with Dr. Jaimes. Will need CTA Encouraged her to fish bait picker ASA 81mg today and resume taking and call her PCP tormadiart statin and antihypertensives. Discussed why these medications are so very important in patients with PAD. Encouraged smoking cessation. I will call her to discuss next steps of CTA and need to have creatinine prior to procedure and follow up with surgeon. documented in this encounter Plan of Treatment Not on file documented as of this encounter Results * CT Angiogram Aortic [...] below. ? Electronically signed by: Amarjit Zimmerman [facility] ([phone]), at 01/17/2019 4:21 PM Narrative 01/17/2019 4:21 [...] was performed following intravenous administration of contrast. Kijjcytqxphs580.0 ml of OMNIPAQUE 350.00 mg/ml. MPRs were [...] contact the number below. Electronically signed by: Amarjit Zimmerman [facility]([phone]), at 01/17/2019 4:21 PM Laura Quiros APRN [facility] [place] ORDERABLES * (ABNORMAL) Creatinine (01/17/2019 11:45 AM EDT) Creatinine 0.61(L) 0.70 - 1.20 mg/dL [facility] Estimated GFR 104 >=60 mL/min/1.7 3 m?? [facility] Comment: The eGFR was calculated using the CKD-EPI equation. As with all creatinine based estimates of kidney function, eGFR values calculated with the CKD-EPI equation are not accurate in patients with acute kidney failure, extremes of body mass or the acutely ill. [email or web address] eGFR 120 >=60 mL/min/1.7 3 m?? [facility] Comment: The eGFR was calculated using the CKD-EPI equation. As with all creatinine based estimates of kidney function, eGFR values calculated with the CKD-EPI equation are not accurate in patients with acute kidney failure, extremes of body mass or the acutely ill. [email or web address] Blood specimen (specimen) 01/17/2019 11:45 AM EDT 01/17/2019 11:50 AM EDT Narrative Resulting Agency Comment Spec In Lab Laura Quiros APRN CHEMISTRY ORDERABL ES [facility] [place] [address] documented in this encounter Visit Diagnoses Diagnosis PVD (peripheral vascular disease) with claudication Peripheral vascular disease, unspecified PVD (peripheral vascular disease) with claudication Peripheral vascular disease, unspecified documented in this encounter Care Teams Malted Milk Masher Relationship Specialty Start Date End Date None None PCP - General 12/03/18 01/12/19 documented as of this encounter
--- OUTSIDE RECORDS SUMMARY | 2023-12-04 01:10 | XMS_ITS | Encounter Summary ---
Author Organization [facility] Address [facility] [place] [address] Care Team Providers Care 4 H Youth Development Specialist Name Role Phone Jorge Luisedison Saundra Edison BENTLEY Primary Care Provider [phone] Encounter Details Date Type Department Care Team (Latest Contact Info) Description 07/09/2018 8:00 AM EST Office Visit [place] [address] Radha Emery APRN [facility] [place] [address] Iliac artery stenosis, bilateral; Stenosis of infrarenal [...] Sign Reading Time Taken Comments Blood Pressure 154/71 07/09/2018 8:15 AM EST Pulse 58 07/09/2018 8:15 AM EST Temperature - - Respiratory Rate - - Oxygen Saturation - - Inhaled Oxygen Concentration - - Weight 46.7 kg (103 lb) 07/09/2018 8:15 AM EST r eported Height 156.2 cm (5' 1.5) 07/09/2018 8:15 AM EST reported Body Mass Index 19.15 07/09/2018 8:15 AM EST documented in this encounter Progress Notes * Radha Emery APRN - 07/09/2018 8:00 AM EST F/u SHA's 03/05/2018: [employer] Lifestyle 14 x 40 stent in distal-most abdominal aorta, 7 x 59 iCast stent graft in right common iliac artery, 7 x 59 iCast stent graft in left common iliac artery 53F??former??smoker??(quit Dec, 2017)??with hypertension, right renal artery stenosis sp angioplasty [id number], and short distance bilateral buttocks and thigh claudication related to aortoiliac disaese. Pt reports cramping pain in her thighs, right worse than left after walking 50 feet. Today: Doing well. Claudication resolved. Denies rest pain, tissue loss, SOB, chest pain, TIa's, problems with incision. C/o b knee pain with bending. Continues to smoke about 6-7 cigarettes per day. PE General: NAD, appears well Neuro: Alert and oriented, motor sensory grossly intact Lungs: CTA Heart: RRR Abd: Soft, NT, ND, no palpable pulsatile masses Extremity - [place], warm, no ulceration, brisk capillary refill, no edema Vascular: R L Carotid 2/2 bruit (n) 2/2 bruit (n) Radial 2/2 2/2 Femoral 2/2 2/2 Popliteal 2/2 2/2 DP 2/2 2/2 PT 2/2 2/2 SHA's Right ?Pressure (mm Hg) ?? SHA ??Waveform ?? Brachial Artery ?163 ? Dorsalis Pedis (Ankle) Artery ?163 ? 1.00 ??Triphasic ?? Posterior Tibial (Ankle) Artery ??168 ? 1.03 ??Triphasic ? Left ? Pressure (mm Hg) ?? SHA ??Waveform ?? Brachial Artery ?163 ? Dorsalis Pedis (Ankle) Artery ?154 ? 0.94 ??Triphasic ?? Posterior Tibial (Ankle) Artery ??154 ? 0.94 ??Triphasic ? Interpretation: ?? RIGHT: No significant lower extremity arterial occlusive disease identified at rest. Normal ankle/brachial pressure ratios and ankle Doppler waveforms. No significant change compared to previous exam. ? LEFT: Mild lower extremity arterial occlusive disease. No significant change in SHA compared to previous exam. However disease severity did change from normal to mild. ?? Assessment/Plan: 53 yo female 03/05/2018: Bard Lifestyle 14 x 40 stent in distal-most abdominal aorta, 7 x 59 iCast stent graft in right common iliac artery, 7 x 59 iCast stent graft in left common iliac artery. Well healed. No complaints. Very happy with results. ABIs stable. Continue ASA daily. Discussed smoking cession RTC 4 months with SHA's Please call our office [...] Text Report Department: Vascular Surgery Lab Patient: [id number] (SMOOTH EMILIANA) CPT: 16784 ICD10: I70.0;I77.1 Referring Physician: RADHA EMERY APRN ?? Indications: ??aortic and iliac stents, new [...] VASCUBASE 12/03/2018 8:28 AM EDT Radha Emery CLOUD ENGAGEMENT PARTNER VASCULAR ORDERABLE S VASCUBASE documented in this encounter Visit Diagnoses Diagnosis Iliac artery stenosis, bilateral Stricture of artery Stenosis of infrarenal abdominal aorta due to arteriosclerosis Atherosclerosis of aorta documented in this encounter Care Teams 4 H Youth Development Specialist Relationship Specialty Start Date End Date Saundra Reddy, CLOUD ENGAGEMENT PARTNER PCP - General Family Medicine 01/02/18 12/02/18 documented as of this encounter
--- OUTSIDE RECORDS SUMMARY | 2023-12-04 01:10 | XMS_ITS | Encounter Summary ---
Author Organization [facility] [address] Care Team Providers Care Forklift Mechanic Name Role Phone Saundra Reddy Sunil BENTLEY Primary Care Provider [phone] Encounter Details Date Type Department Care Team (Late st Contact Info) Description 07/09/2018 7:30 AM EST Tech [place] [id number] Vikash Black [place] Stenosis of aorta; Iliac artery stenosis, bilateral [...] Diagnosis Comments SHA, LEGS, MULTIPLE LEVELS Routine 07/09/2018 7:29 AM EST Stenosis of aorta Iliac artery stenosis, bilateral documented in this encounter Results * SHA, legs, multiple levels (07/09/2018 7:29 AM EST) VB Text Report Department: Vascular Surgery Lab Patient: [id number] (EMILIANA FARMER) CPT: 19792 ICD10: I77.1;Q25.3 Referring Physician: RADHA EMERY APRN [...] artery documented in this encounter Care Teams Forklift Mechanic Relationship Specialty Start Date End Date Saundra Reddy APRN PCP - General Family Medicine 01/02/18 12/02/18 documented as of this encounter
--- NOTE | 2023-12-04 07:45 | DI.CTLCSR_ITS ---
Exam(s) CT CHEST LUNG CANCER SCREEN EXAM: CT CHEST LUNG CANCER SCREEN CLINICAL HISTORY: F17.210 Nicotine dependence,unspecified, in Remission. TECHNIQUE: Imaging Protocol: Low Dose Technique CONTRAST MATERIAL: None COMPARISON: CT CT CHEST LUNG CANCER SCREEN from 09/26/2022 09/26/2022 FINDINGS: CHEST: LUNGS: There are no ominous pulmonary nodules. There are no confluent infiltrates. No pleural effusi ons. MEDIASTINUM: There is no obvious hilar nor mediastinal adenopathy. CARDIAC: Heart size is normal. There is no pericardial effusion.Caliber of the thoracic aorta is wit hin normal limits. OTHER: No adrenal masses. No splenomegaly. OSSEOUS: No significant osseous lesions.Fractures.. IMPRESSION: 1. No significant pulmonary nodules. 2. No infiltrates nor pleural effusions nor obvious intrathoracic adenopathy. 3. Lung RADS Cat 1 - Negative: No nodules and definitely benign nodules Lung-RADS 1.0 CATEGORIES: Category 0 - Prior chest CT exam(s) being located for comparison. Category 1 - Annual screening in 12 months. No nodules or definitely benign nodules. Category 2 - Annual screening in 12 months. Benign appearance. Nodules with low likelihood of becomin g active cancer. Category 3 - 6-month follow-up. Probably benign. Short-term follow-up suggested. Nodules with low lik elihood of becoming active cancer. Category 4A - 3-month follow-up and CT/PET if >8 mm in size. Suspicious finding. Findings which requi re additional testing. Category 4B - Findings which require additional testing and tissue sampling. Category 4X - Category 3 or 4 nodules with additional features or imaging findings that increases the suspicion of malignancy. Modifier S- Potentially clinically significant findings (non lung cancer) RADIATION DOSE DELIVERED: Total DLP DATA REPOSITORY: All CT scans at this facility are submitted to the National Radiology Data Registry (NRDR) Dose Index Registry (DIR) with the [employer] (ACR). RADIATION OPTIMIZATION: All CT scans at this facility use at least one of these dose optimization te chniques: automated exposure control; mA and/or kV adjustment per patient size (includes targeted exa ms where dose is matched to clinical indication); or iterative reconstruction.
== END ==
PROVIDERS: Visit Provider Nurse Practitioner Family
DX: F17.201 Nicotine dependence, unspecified, in remission (principal)
CPT/HCPCS: 71271

== ENCOUNTER 2024-03-13 15:21 | Outpatient (REF) | payer MEDICAID, SELFPAY | END 2024-03-13 15:22 | disposition home or self-care (01) | LOC: LBN 15:21 | PROVIDERS: PCP Nurse Practitioner Family; Visit Provider Physician Assistant | DX: L98.9 Disorder of the skin and subcutaneous tissue, unspecified (principal); L01.00 Impetigo, unspecified | CPT/HCPCS: 87077; 87070; 87205 ==

== ENCOUNTER 2024-03-25 13:02 | Outpatient (REF) | payer MEDICAID, SELFPAY ==
--- OUTSIDE RECORDS SUMMARY | 2024-03-25 13:04 | XMS_ITS | Clinical Summary ---
Author Organization Replaced By [facility] Address [facility] [place] [address] Care Team Providers Care Publicity Consultant Name Role Phone Nancy Alfred APRN Primary Care Provider [phone] Allergies Active Allergy Reactions Criticality Noted Date [...] 04/06/2023 1:56 PM EST Plan of Treatment Upcoming Encounters Date Type Department Care Team (Late st Contact Info) Description 04/04/2024 10:30 AM EST Tech [place] [phone] Jose Barraza 04/04/2024 11:00 AM EST Office Visit [place] [phone] Ayla Davis APRN [facility] [place] [address] Health Maintenance Due Date Last Done Comments CT Colonography 1966 Colonoscopy 1966 Colorectal Cancer Screening 1966 FIT DNA 1966 FIT 1966 Sigmoidoscopy (10 year) with FIT yearly 1966 Sigmoidoscopy 1966 Pneumococcal Vaccine: At-Risk 5-64yrs (1 of 2 - PCV) 0 01/16/1972 HIV screen 01/16/1984 Hepatitis C Screening 01/16/1984 Hepatitis B vaccine (0-59 yrs) (1) 1985 Tetanus/Diphtheria/Pertussis Vaccines (1 - Tdap) 01/15 HPV test 01/16/1996 PAP Smear 01/16/1996 Breast Cancer Share Decision Needed 2006 Breast Cancer screening 2006 Zoster vaccine (1 of 2) 01/16/2016 Covid-19 Vaccine (1 - season) 2024 Influenza (Flu) vaccine (1 o f 1 - Influenza standard series) 01/20/2024 Medical Devices Implanted Type Area Shaft Tender Device Identifier Shelf Expiration Date Model / Serial / Lot Stent,Lstar,V asc,[id number],8 0cm ([id number]) - [id number] Implanted:Qty : 1 on 03/05/2018 by Yves Vegas MD at [facility] IMPLANTS N/A: Aorta [employer]ARD [employer] - CR BARD 06/01/2020 [id number] / / [id number] Description:from IR inventor y Stent,Icast,C vr,7x59mm,120 cm ([id number]) - [id number] Implanted:Qty : 1 on 03/05/2018 by Yves Vegas MD at [facility] IMPLANTS Left: Arterial [employer] - GET[employer]E GR 08/27/2020 [id number] / [id number] / Description:left iliac arter y Stent,Icast,C vr,7x59mm,120 cm ([id number]) - [id number] Implanted:Qty : 1 on 03/05/2018 by Yves Vegas MD at [facility] IMPLANTS Right: Arterial [employer] - [employer] GR 08/31/2020 [id number] / [id number] / Description:right iliac marisol ry Graft,Hmgd,Kn t,Bifur,12x7m mx40 ([id number]) - [id number] Implanted:Qty : 1 on 03/31/2019 by Judy Gilbert MD at [facility] IMPLANTS N/A: Aorta [employer] - GETINGE GR 02/17/2022 [id number] / [id number] Advance Directives Documents on File Type Date Recorded Patient Lens Edge Grinder Machine Expl anation Advance Directives and Livin g Will 03/06/2019 10:41 AM * Full Code (Latest Code Status on File) Date Activated Date Inactivated Comments 03/31/2019 9:08 PM 04/05/2019 5:46 PM Question Answer Comments Does patient have capacity to make decision: Yes * Full Code Date Activated Date Inactivated Comments 03/05/2018 12:03 PM 03/06/2018 5:13 PM Question Answer Comments Does patient have capacity to make decision: Yes Care Teams Publicity Consultant Relationship Specialty Start Date End Date Nancy Alfred, ACCOUNTING SYSTEMS MANAGER [address] [place] [address] PCP - General Family Medicine 03/03/22
--- OUTSIDE RECORDS SUMMARY | 2024-03-25 13:04 | XMS_ITS | Encounter Summary ---
Author Organization [facility] Address [facility] [place] [address] Care Team Providers Care Staff Radiation Therapist Name Role Phone Beena Wilkes APRN Primary Care Provider [phone] Encounter Details Date Type Department Care Team (Late st Contact Info) Description 10/03/2019 10:00 AM EDT TH Visit (TeleHealth) [place] [address] Judy Gilbert MD [facility] [address] [place] [address] PAD (peripheral artery disease) Social History Tobacco [...] claudication I73.9 ??? History of renal stent [id number] ??? Hypertension I10 ??? 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 Tobacco Use [...] have offered to refer her to a [facility] surgeon however she would prefer to [...] documented in this encounter Plan of Treatment Upcoming Encounters Date Type Department Care Team (Late st Contact Info) Description 04/04/2024 10:30 AM EST Tech Visit [place] [address] Jose Bararza 04/04/2024 11:00 AM EST Office [place] [address] Ayla Davis APRN [facility] [address] [place] [address] documented as of this encounter Visit Diagnoses Diagnosis PAD (peripheral artery disease) Peripheral vascular disease, unspecified documented in this encounter Care Teams Staff Radiation Therapist Relationship Specialty Start Date End Date Beena Wilkes APRN [address] [place] [address] PCP - General Family Medicine 01/13/19 03/02/22 documented as of this encounter
--- OUTSIDE RECORDS SUMMARY | 2024-03-25 13:04 | XMS_ITS | Encounter Summary ---
Author Organization [facility] [place] [address] Care Team Providers Care Product Mgr Name Role Phone Nancy Alfred APRN Primary Care Provider [phone] Reason for Referral * Diagnostic Test (Routine) - Authorized Specialty Diagnoses / Procedures Referred By Contac t Referred To Contact Diagnoses S/P aortobifemoral bypass surgery Aortoiliac occlusive disease Procedures SHA, legs, multiple levels Ayla Davis APRN [facility] [place] [address] [facility] [address] [address] Referral ID Status Reason Start Date Expiration Date Visits Requested Visits Authorized [id number] Authorized Specialty Service Requested 3 04/08/2024 1 1 Encounter Details Date Type Department Care Team (Latest Contact Info) Description 04/06/2023 2:00 PM EST Office [place] [address] Ayla Davis APRN [facility] [place] [address] S/P aortobifemoral bypass surgery; Aortoiliac occlusive disease [...] this encounter Progress Notes * Ayla Davis, REAL ESTATE SERVICES COORDINATOR - 04/06/2023 2:00 PM EST Vascular Follow-Up [...] Intermittent claudication I73.9 History of renal stent [id number] Hypertension I10 Aortoiliac occlusive disease I74.09 Drinks [...] AM EST [place] [address] Jose Barraza 04/04/2024 11:00 AM EST Office [place] [address] Ayla Davis APRN [facility] [place] [place] [address] documented as of this encounter Visit Diagnoses Diagnosis S/P aortobifemoral bypass surgery Other postprocedural status Aortoiliac occlusive 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 documented in this encounter Care Teams Product Mgr Relationship Specialty Start Date End Date Nancy Alfred APRN [address] [place] [address] PCP - General Family Medicine 03/03/22 documented as of this encounter
--- OUTSIDE RECORDS SUMMARY | 2024-03-25 13:04 | XMS_ITS | Encounter Summary ---
Author Organization [facility] Address [facility] [place] [address] Care Team Providers Care Shower Enclosure Installer Name Role Phone Beena Wilkes SHEREE Primary Care Provider [phone] Encounter Details Date Type Department Care Team (Late st Contact Info) Description 02/11/2021 Orders [place] [address] Emmy Green, EYEGLASS FRAME TRUER Intermittent claudication; PAD (peripheral artery disease) Social [...] as of this encounter Plan of Treatment Upcoming Encounters Date Type Department Care Team (Late st Contact Info) Description 04/04/2024 10:30 AM EST Tech [place] [address] Jose Barraza 04/04/2024 11:00 AM EST Office Visit [place] [address] Ayla Davis APRN [facility] [place] [address] documented as of this encounter Visit Diagnoses Diagnosis Intermittent claudication Peripheral vascular disease, unspecified PAD (peripheral artery disease) Peripheral vascular disease, unspecified documented in this encounter Care Teams Shower Enclosure Installer Relationship Specialty Start Date End Date Beena Wilkes, SHEREE [address] [place] [address] PCP - General Family Medicine 01/13/19 03/02/22 documented as of this encounter
--- OUTSIDE RECORDS SUMMARY | 2024-03-25 13:04 | XMS_ITS | Encounter Summary ---
Author Organization [facility] [place] [address] Care Team Providers Care Labor Relations Worker Name Role Phone Beena Wilkes APRN Primary Care Provider [phone] Reason for Referral * Diagnostic Test (Routine) - Closed Specialty Diagnoses / Procedures Referred By Contac t Referred To Contact Diagnoses Aortoiliac occlusive disease Procedures SHA, legs, multiple levels Pete Álvarez MD [facility] [place] [address] [facility] Vascular Lab [address] [address] Referral ID Status Reason Start Date Expiration Date V isits Requested Visits Authorized [id number] Closed Specialty Service Requested 02/08/2021 02/08/2022 1 1 Encounter Details Date Type Department Care Team (Late st Contact Info) Description 02/08/2021 Orders [place] [address] Emmy Green, LOGISTICS CLERK Aortoiliac occlusive disease Social History Tobacco Use [...] AM EST Tech [place] [address] PhilipprenairmaJose Jorge 04/04/2024 11:00 AM EST Office Visit [place] [address] Ayla Davis, SHEREE [facility] [place] [address] documented as of this encounter Results * SHA, legs, multiple levels (02/11/2021 9:11 AM EDT) VB Text Report Department: Vascular Surgery Lab Patient: [id number] (SMOOTH EMILIANA) CPT: 31468 ICD10: I74.09 Referring Physician: PETE ÁLVAREZ ?? [...] EDT Pete Álvarez MD VASCULAR ORDERA BLES Performing Organization Address City/State/[facility] Co de Phone Number VASCUBASE documented in this encounter Visit Diagnoses Diagnosis Aortoiliac occlusive 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 documented in this encounter Care Teams Labor Relations Worker Relationship Specialty Start Date End Date Beena Wilkes, BRIM STIFFENER [address] [place] [address] PCP - General Family Medicine 01/13/19 03/02/22 documented as of this encounter
--- OUTSIDE RECORDS SUMMARY | 2024-03-25 13:04 | XMS_ITS | Encounter Summary ---
Author Organization [facility] [place] [address] Care Team Providers Care Lens Cleaner Name Role Phone Beena Wilkes APRN Primary Care Provider [phone] Encounter Details Date Type Department Care Team (Late st Contact Info) Description 02/16/2022 Telephone [place] [address] Rosy Austin Social History Tobacco Use Types [...] AM EST Tech Visit [place] [address] Jose Barraza 04/04/2024 11:00 AM EST Office [place] [address] Ayla Davis APRN [facility] [place] [address] documented as of this encounter Visit Diagnoses Not on filedocumented in this encounter Care Teams Lens Cleaner Relationship Specialty Start Date End Date Beena Wilkes APRN [address] [address] PCP - General Family Medicine 01/13/19 03/02/22 documented as of this encounter
--- OUTSIDE RECORDS SUMMARY | 2024-03-25 13:04 | XMS_ITS | Encounter Summary ---
Author Organization [facility] [place] [address] Care Team Providers Care Public Health Name Role Phone Beena Wilkes APRN Primary Care Provider [phone] Reason for Referral * Diagnostic Test (Routine) - Closed Specialty Diagnoses / Procedures Referred By Contac t Referred To Contact Diagnoses Aortoiliac occlusive disease Procedures SHA, legs, multiple levels Pete Álvraez MD [facility] [place] [address] [facility] Vascular Lab [address] [place] [address] Referral ID Status Reason Start Date Expiration Date V isits Requested Visits Authorized [id number] Closed Test Only 02/11/2021 02/11/2022 1 1 Encounter Details Date Type Department Care Team (Late st Contact Info) Description 02/11/2021 Orders Only [place] [address] Emmy Green, WELLNESS MANAGER Aortoiliac occlusive disease Social History Tobacco Use [...] AM EST Tech [place] [address] MadiJose Jorge 04/04/2024 11:00 AM EST Office Visit [place] [address] Ayla Davis, SHEREE [facility] [place] [address] documented as of this encounter Results * SHA, legs, multiple levels (03/03/2022 1:34 PM EDT) VB Text Report Department: Vascular Surgery Lab Patient: [id number] (SMOOTH EMILIANA) CPT: [id number] Referring Physician: PETE ÁLVAREZ ?? Phone: Indications: [...] aorta documented in this encounter Care Teams Public Health Relationship Specialty Start Date End Date Beena Wilkes, [employer] COMPANY FLATBED TRUCK DRIVER [address] [place] [address] PCP - General Family Medicine 01/13/19 03/02/22 documented as of this encounter
--- OUTSIDE RECORDS SUMMARY | 2024-03-25 13:04 | XMS_ITS | Encounter Summary ---
Author Organization [facility] [place] [address] Care Team Providers Care Rail Layer Name Role Phone Nancy Alfred APRN Primary Care Provider [phone] Encounter Details Date Type Department Care Team (Late st Contact Info) Description 03/03/2022 2:00 PM EDT Tech Visit [place] [address]1000 Vikash Black [place] Aortoiliac occlusive disease Social [...] AM EST Tech [place] [address] Jose Barraza 04/04/2024 11:00 AM EST Office Visit [place] [address]1000 Ayla Davis APRN [facility] [place] [address] documented as of this encounter Procedures Procedure Name Priority Date/Time Associated Diagnosis Comments SHA, LEGS, MULTIPLE LEVELS Routine 03/03/2022 1:34 PM EDT Aortoiliac occlusive disease documented in this encounter Results * SHA, legs, multiple levels (03/03/2022 1:34 PM EDT) VB Text Report Department: Vascular Surgery Lab Patient: [id number] (EMILIANA AFRMER) CPT: 22982 Referring Physician: PETE GILBERT ?? Phone: Indications: [...] PM EDT Pete Gilbert MD VASCULAR ORDERA [facility] Organization Address City/State/ZIP Co de Phone Number VASCUBASE documented in this encounter Visit Diagnoses Diagnosis Aortoiliac occlusive 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 documented in this encounter Care Teams Rail Layer Relationship Specialty Start Date End Date Nancy Alfred, STATE FEDERAL RELATIONS DEPUTY [place] [address] [place] [address] PCP - General Family Medicine 03/03/22 documented as of this encounter
--- OUTSIDE RECORDS SUMMARY | 2024-03-25 13:04 | XMS_ITS | Encounter Summary ---
Author Organization [facility] Address [facility] [place] [address] Care Team Providers Care Plant Health Manager Name Role Phone Beena Wilkes APRN Primary Care Provider [phone] Encounter Details Date Type Department Care Team (Late st Contact Info) Description 02/11/2021 10:00 AM EDT Office Visit [place] [address] Pete Álvarez MD [facility] [place] [address] Aortoiliac occlusive disease Social History Tobacco Use [...] claudication I73.9 ??? History of renal stent [id number] ??? Hypertension I10 ??? Aortoiliac occlusive disease [...] Text Report Department: Vascular Surgery Lab Patient: [id number] (EMILIANA FARMER) CPT: 33463 ICD10: I74.09 Referring Physician: PETE ÁLVAREZ Phone: [...] is going ot choose a quit date. Shewill follow- up with me in 1 year with repeat ABIs. documented in this encounter Plan of Treatment Upcoming Encounters Date Type Department Care Team (Late st Contact Info) Description 04/04/2024 10:30 AM EST Tech [place] [address] Jose Barraza 04/04/2024 11:00 AM EST Office Visit [place] [address] Ayla Davis APRN [facility] [place] [address] documented as of this encounter Visit Diagnoses Diagnosis Aortoiliac occlusive 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 documented in this encounter Care Teams Plant Health Manager Relationship Specialty Start Date End Date Beena Wilkes, DIRECTOR OF EDUCATION [address] [place] [address] PCP - General Family Medicine 01/13/19 03/02/22 documented as of this encounter
--- OUTSIDE RECORDS SUMMARY | 2024-03-25 13:04 | XMS_ITS | Encounter Summary ---
Author Organization [facility] [place] [address] Care Team Providers Care Seafood Team Member Name Role Phone Nancy Alfred APRN Primary Care Provider [phone] Encounter Details Date Type Department Care Team (Late st Contact Info) Description 04/06/2023 1:30 PM EST Tech [place] [address] Juliana Wilkinson S/P aortobifemoral bypass surgery Social [...] AM EST Tech [place] [address] Jose Barraza 04/04/2024 11:00 AM EST Office Visit [place] [address] [facility] [place] [address] documented as of this encounter Procedures Procedure Name Priority Date/Time Associated Diagnosis Comments SHA, LEGS, MULTIPLE LEVELS Routine 04/06/2023 1:26 PM EST S/P aortobifemoral bypass surgery documented in this encounter Results * SHA, legs, multiple levels (04/06/2023 1:26 PM EST) VB Text Report Department: Vascular Surgery Lab Patient: [id number] (EMILIANA FARMER) CPT: [id number] Referring Physician: RADHA EMERY APRN ?? Indications: [...] status documented in this encounter Care Teams Seafood Team Member Relationship Specialty Start Date End Date Nancy Alfred, GEOTHERMAL OPERATIONS MANAGER [place] [address] [place] [address] PCP - General Family Medicine 03/03/22 documented as of this encounter
--- OUTSIDE RECORDS SUMMARY | 2024-03-25 13:04 | XMS_ITS | Encounter Summary ---
Author Organization [facility] Address [facility] [place] [address] Care Team Providers Care District Manager Name Role Phone Nancy Alfred APRN Primary Care Provider [phone] Reason for Referral * Diagnostic Test (Routine) - Closed Specialty Diagnoses / Procedures Referred By Contac t Referred To Contact Diagnoses S/P aortobifemoral bypass surgery Procedures SHA, legs, multiple levels Radha Emery APRN [facility] [place] [address] [facility] Vascular Lab [address], [place] [address] Referral ID Status Reason Start Date Expiration Date V isits Requested Visits Authorized [id number] Closed Specialty Service Requested 03/03/2022 03/03/2023 1 1 Encounter Details Date Type Department Care Team (Latest Contact Info) Description 03/03/2022 2:30 PM EDT Office [place] [address] Radha Emery APRN [facility] [place] [address] S/P aortobifemoral bypass surgery Social [...] this encounter Progress Notes * Radha Emery, SENIOR IOS SOFTWARE ENGINEER - 03/03/2022 2:30 PM EDT OUTPATIENT VASCULAR [...] claudication I73.9 ??? History of renal stent [id number] ??? Hypertension I10 ??? Aortoiliac occlusive disease [...] AM EST Tech [place] [address] Jose Barraza 04/04/2024 11:00 AM EST Office [place] [address] Ayla Davis APRN [facility] DR VASCULAR SURGERY [place], [place] [address] documented as of this encounter Results * SHA, legs, multiple levels (04/06/2023 1:26 PM EST) VB Text Report Department: Vascular Surgery Lab Patient: [id number] (SMOOTH, EMILIANA) CPT: [id number] Referring Physician: RADHA EMERY APRN ?? Indications: [...] status documented in this encounter Care Teams District Manager Relationship Specialty Start Date End Date Nancy Alfred APRN [address] [place] [address] PCP - General Family Medicine 03/03/22 documented as of this encounter
--- OUTSIDE RECORDS SUMMARY | 2024-03-25 13:04 | XMS_ITS | Encounter Summary ---
Author Organization [facility] Address [facility] [place] [address] Care Team Providers Care Cable Maintainer Name Role Phone Nancy Alfred APRN Primary Care Provider [phone] Encounter Details Date Type Department Care Team [...] AM EST Tech [place] [address] Jose Barraza 04/04/2024 11:00 AM EST Office [place] [address] Ayla Davis APRN [facility] [address] [place] [address] documented as of this encounter Visit Diagnoses Not on filedocumented in this encounter Care Teams Cable Maintainer Relationship Specialty Start Date End Date Nancy Alfred APRN [facility] [address] [place] [address] PCP - General Family Medicine 03/03/22 documented as of this encounter
--- OUTSIDE RECORDS SUMMARY | 2024-03-25 13:04 | XMS_ITS | Encounter Summary ---
Author Organization [facility] [place] [address] Care Team Providers Care Oracle Engineer Name Role Phone Beena Wilkes APRN Primary Care Provider [phone] Reason for Visit * Reason Onset Date Comments Follow-up 03/24/2020 Tobacco Treatmen t Encounter Details Date Type Department Care Team (Late st Contact Info) Description 03/24/2020 Telephone [place] [address] Buck Watts, RN Follow-up (Tobacco [...] follow-ups. EMR updated. Buck Watts, MSN, RN-, [facility] [place]ite Chip Terrazzo Finisher [facility] Pager #[phone] documented in this encounter Plan of Treatment Upcoming Encounters Date Type Department Care Team (Late st Contact Info) Description 04/04/2024 10:30 AM EST Tech Visit [place] [address] Jose Barraza 04/04/2024 11:00 AM EST Office [place] [address] Ayla Davis APRN [facility] [place] [address] documented as of this encounter Visit Diagnoses Not on filedocumented in this encounter Care Teams Oracle Engineer Relationship Specialty Start Date End Date Beena Wilkes APRN [address] [facility] [address] PCP - General Family Medicine 01/13/19 03/02/22 documented as of this encounter
--- OUTSIDE RECORDS SUMMARY | 2024-03-25 13:04 | XMS_ITS | Encounter Summary ---
Author Organization [facility] Address [facility] [place] [address] Care Team Providers Care Mail Processing Associate Name Role Phone Beena Wilkes SHEREE Primary Care Provider [phone] Encounter Details Date Type Department Care Team (Late st Contact Info) Description 02/11/2021 9:30 AM EDT Tech Visit [place] [address] Vikash Black [place] Aortoiliac occlusive disease Social [...] AM EST Tech Visit [place] [address] Jose Barraza 04/04/2024 11:00 AM EST Office Visit [place] [address] Ayla Davis APRN [facility] [place] [address] documented as of this encounter Procedures Procedure Name Priority Date/Time Associated Diagnosis Comments PRG NON-INVASIVE PHYSIOLOGIC STUDY EXTREMITY ART 2 LEVEL Routine 02/11/2021 9:11 AM EDT Aortoiliac occlusive disease documented in this encounter Results * SHA, legs, multiple levels (02/11/2021 9:11 AM EDT) VB Text Report Department: Vascular Surgery Lab Patient: [id number] (EMILIANA FARMER) CPT: 86470 ICD10: I74.09 Referring Physician: PETE GILBERT ?? [...] AM EDT Pete Gilbert MD [facility]ULAR [facility] Organization Address City/State/[facility] Co de Phone Number VASCUBASE documented in this encounter Visit Diagnoses Diagnosis Aortoiliac occlusive 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 documented in this encounter Care Teams Mail Processing Associate Relationship Specialty Start Date End Date Beena Wilkes, HISTOLOGY SPECIALIST [address] [place] [address] PCP - General Family Medicine 01/13/19 03/02/22 documented as of this encounter
--- OUTSIDE RECORDS SUMMARY | 2024-03-25 13:05 | XMS_ITS | Encounter Summary ---
Author Organization [facility] Address [facility] [place] [address] Care Team Providers Care Tool Carrier Name Role Phone KyleBeena cline SHEREE Primary Care Provider [phone] Encounter Details Date Type Department Care Team (Late st Contact Info) Description 04/03/2019 Telephone [place] [address] Gris Chisholm Social History Tobacco Use Types [...] AM EST Tech [place] [address] Jose Barraza 04/04/2024 11:00 AM EST Office Visit [place] [address] Ayla Davis APRN [facility] [place] [address] documented as of this encounter Visit Diagnoses Not on filedocumented in this encounter Care Teams Tool Carrier Relationship Specialty Start Date End Date Beena Wilkes, VULCANIZER RUBBER PLATE [address] [place] [address] PCP - General Family Medicine 01/13/19 03/02/22 documented as of this encounter
--- OUTSIDE RECORDS SUMMARY | 2024-03-25 13:05 | XMS_ITS | Encounter Summary ---
Author Organization [facility] Address [facility] [place] [address] Care Team Providers Care Testing Analyst Name Role Phone KyleBeena cline SHEREE Primary Care Provider [phone] Encounter Details Date Type Department Care Team (Late st Contact Info) Description 03/07/2019 10:15 AM EDT [place] [address] Social History Tobacco Use Types Packs/Day Years [...] AM EST Tech Visit [place] [address] Jose Barraza 04/04/2024 11:00 AM EST Office [place] [address] Ayla Davis APRN [facility] [place] [address] documented as of this encounter Visit Diagnoses Not on filedocumented in this encounter Care Teams Testing Analyst Relationship Specialty Start Date End Date Beena Wilkes, SECONDARY CONNECTOR ARMATURE [address] [place] [address] PCP - General Family Medicine 01/13/19 03/02/22 documented as of this encounter
--- OUTSIDE RECORDS SUMMARY | 2024-03-25 13:05 | XMS_ITS | Encounter Summary ---
[place] [address] Care Team Providers Care Quality Assurance Project Manager Name Role Phone Beena Wilkes APRN Primary Care Provider [phone] Encounter Details Date Type Department Care Team (Late st Contact Info) Description 04/01/2019 11:59 PM EST Anesthesia Event [facility] [place] [address] Sebastian Bansal RN Anesthesia Record Procedure Summary [...] EST Tech Visit [place] [address] Jose Barraza 04/04/2024 11:00 AM EST Office [place] [address] Ayla Davis APRN [facility] [place] [address] documented as of this encounter Visit Diagnoses Not on filedocumented in this encounter Care Teams Quality Assurance Project Manager Relationship Specialty Start Date End Date Beena Wilkes APRN [address] [place] [address] PCP - General Family Medicine 01/13/19 03/02/22 documented as of this encounter
--- OUTSIDE RECORDS SUMMARY | 2024-03-25 13:05 | XMS_ITS | Encounter Summary ---
Author Organization [facility] Address [facility] [place] [address] Care Team Providers Care Windows Consultant Name Role Phone Beena Wilkes APRN Primary Care Provider [phone] Reason for Visit * Reason Comments Wound Check wound check 2 wk Encounter Details Date Type Department Care Team (Late st Contact Info) Description 04/15/2019 3:00 PM EST Office Visit [place] [address] Claudine Helm PA [facility] [place] [address] Intermittent claudication Social History Tobacco Use Types [...] claudication I73.9 ??? History of renal stent [id number] ??? Hypertension I10 ??? Aortoiliac occlusive disease [...] AM EST Tech [place] [address] Jose Barraza 04/04/2024 11:00 AM EST Office [place] [address] Ayla Davis, SHEREE [facility] [place] [address] documented as of this encounter Visit Diagnoses Diagnosis Intermittent claudication Peripheral vascular disease, unspecified documented in this encounter Care Teams Windows Consultant Relationship Specialty Start Date End Date Beena Wilkes APRN [address] [place] [address] PCP - General Family Medicine 01/13/19 03/02/22 documented as of this encounter
--- OUTSIDE RECORDS SUMMARY | 2024-03-25 13:05 | XMS_ITS | Encounter Summary ---
Author Organization [facility] Address [facility] [place] [address] Care Team Providers Care Chisel Grinder Name Role Phone KyleBeena cline SHEREE Primary Care Provider [phone] Encounter Details Date Type Department Care Team (Late st Contact Info) Description 06/24/2019 Orders Only [place] [address] Laura Quiros LOADER UNLOADER [facility] [place] [address] Aortoiliac occlusive disease; PAD (peripheral artery disease); [...] AM EST Tech [place] [address] Jose Barraza 04/04/2024 11:00 AM EST Office Visit [place] [address] Ayla Davis, LOADER UNLOADER [facility] [place] [address] documented as of this encounter Visit Diagnoses Diagnosis Aortoiliac occlusive 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 PAD (peripheral artery disease) Peripheral vascular disease, unspecified Intermittent claudication Peripheral vascular disease, unspecified documented in this encounter Care Teams Chisel Grinder Relationship Specialty Start Date End Date Beena Wilkes APRN [address] [place] [address] PCP - General Family Medicine 01/13/19 03/02/22 documented as of this encounter
--- OUTSIDE RECORDS SUMMARY | 2024-03-25 13:05 | XMS_ITS | Encounter Summary ---
Author Organization [facility] [place] [address] Care Team Providers Care Tying In Machine Operator Name Role Phone Beena Wilkes APRN Primary Care Provider [phone] Reason for Visit * Reason Onset Date Comments Letter for School/Work 05/20/2019 Requested a Return to Work Letter Encounter Details Date Type Department Care Team (Late Contact Info) Description 05/20/2019 Telephone [place] [phone] Salma Romeo V RN Letter for School/Work (Requested a Return [...] Encounters Date Type Department Care Team (Late Contact Info) Description 04/04/2024 10:30 AM EST Tech Visit [place] [address] Jose Barraza 04/04/2024 11:00 AM EST Office [place] [phone] Ayla Davis, TUB OPERATOR [facility] [place] [address] documented as of this encounter Visit Diagnoses Not on filedocumented in this encounter Care Teams Tying In Machine Operator Relationship Specialty Start Date End Date Beena Wilkes APRN [address] [place] [address] PCP - General Family Medicine 01/13/19 03/02/22 documented as of this encounter
--- OUTSIDE RECORDS SUMMARY | 2024-03-25 13:05 | XMS_ITS | Encounter Summary ---
Author Organization [facility] Address [facility] [place] [address] Care Team Providers Care Melting Supervisor Name Role Phone Beena Wilkes APRN Primary Care Provider [phone] Encounter Details Date Type Department Care Team (Late st Contact Info) Description 05/02/2019 11:45 AM EST Office Visit [place] [phone] Pete Álvarez MD [facility] [place] [address] Aortoiliac occlusive disease Social History Tobacco Use [...] claudication I73.9 ??? History of renal stent [id number] ??? Hypertension I10 ??? 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 Tobacco Use [...] Text Report Department: Vascular Surgery Lab Patient: [id number] (EMILIANA FARMER) CPT: 50676 ICD10: Z48.812;I73.9;I74.5 Referring Physician: PETE ÁLVAREZ Phone: [...] Text Report Department: Vascular Surgery Lab Patient: [id number] (EMILIANA FARMER) CPT: 14113 ICD10: Z48.812;I74.09;I73.9 Referring Physician: PETE ÁLVAREZ Phone: [...] AM EST Tech [place] [address] Jose Barraza 04/04/2024 11:00 AM EST Office Visit [place] [address] Ayla Davis APRN [facility] [place] [address] documented as of this encounter Visit Diagnoses Diagnosis Aortoiliac occlusive 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 documented in this encounter Care Teams Melting Supervisor Relationship Specialty Start Date End Date Beena Wilkes APRN [address] [place] [address] PCP - General Family Medicine 01/13/19 03/02/22 documented as of this encounter
--- OUTSIDE RECORDS SUMMARY | 2024-03-25 13:05 | XMS_ITS | Encounter Summary ---
Author Organization [facility] Address [facility] [place] [address] Care Team Providers Care Director Product Management Name Role Phone Beena Wilkes APRN Primary Care Provider Encounter Details Date Type Department Care Team (Latest Contact Info) Description 03/06/2019 7:10 AM EDT - 03/06/2019 11:59 PM EDT Hospital Encounter [place] [address] Rashawn Dawn MD [facility] [place] [address] PAD (peripheral artery disease) Discharge Disposition: Home [...] AM EST Tech [place] [address] Jose Barraza 04/04/2024 11:00 AM EST Office [place] [address] Ayla Davis APRN [facility] [place] [address] documented as of this encounter Procedures Procedure [...] documented in this encounter Care Teams Director Product Management Relationship Specialty Start Date End Date Beena Wilkes APRN [address] [place] [address] PCP - General Family Medicine 01/13/19 03/02/22 documented as of this encounter
--- OUTSIDE RECORDS SUMMARY | 2024-03-25 13:05 | XMS_ITS | Encounter Summary ---
Author Organization [facility] Address [facility] [place] [address] Care Team Providers Care Dental Instructor Name Role Phone KyleBeena cline SHEREE Primary Care Provider [phone] Reason for Referral * Diagnostic Test (Routine) - Closed Specialty Diagnoses / Procedures Referred By Contac t Referred To Contact Radiology Diagnoses PAD (peripheral artery disease) Procedures NM Pharmacologic Stress CT Component Rashawn Dawn MD [facility] [place] [address] [place] [address] Referral ID Status Reason Start Date Expiration Date V isits Requested Visits Authorized [id number] Closed Specialty Service Requested 01/28/2019 01/28/2020 1 1 Reason for Visit * Diagnostic Test (Routine) - Closed Specialty Diagnoses / Procedures Referred By Contac t Referred To Contact Radiology Diagnoses PAD (peripheral artery disease) Procedures NM Pharmacologic Stress CT Component Rashawn Dawn MD [facility] [address] [place] [address] Referral ID Status Reason Start Date Expiration Date V isits Requested Visits Authorized [id number] Closed Specialty Service Requested 01/28/2019 01/28/2020 1 1 Encounter Details Date Type Department Care Team (Latest Contact Info) Description 03/06/2019 7:09 AM EDT Hospital Encounter [place] [phone] Rashawn Dawn MD [facility] [address] PAD (peripheral artery disease) Discharge Disposition: Home [...] AM EST Tech [place] [address] Jose Barraza Jorge 04/04/2024 11:00 AM EST Office [place] [address] Ayla Davis, SHEREE [facility] [place] [address] documented as of this encounter Procedures Procedure [...] contact the number below. Rashawn Dawn MD [facility] [place] ORDERABLES documented in this encounter Visit Diagnoses Diagnosis PAD (peripheral artery disease) Peripheral vascular disease, unspecified documented in this encounter Care Teams Dental Instructor Relationship Specialty Start Date End Date Beena Wilkes, COACH BUILDER [address] [place] [address] PCP - General Family Medicine 01/13/19 03/02/22 documented as of this encounter
--- OUTSIDE RECORDS SUMMARY | 2024-03-25 13:05 | XMS_ITS | Encounter Summary ---
Author Organization [facility] Address [facility] [place] [address] Care Team Providers Care Uniform Maker Name Role Phone Beena Wilkes APRN Primary Care Provider [phone] Encounter Details Date Type Department Care Team (Late st Contact Info) Description 09/22/2019 Telephone [place] [address] Iris Farmer RN Social History [...] with Dr. Gilbert being sent to [facility]. Secretaries. documented in this encounter Plan of Treatment Upcoming Encounters Date Type Department Care Team (Late st Contact Info) Description 04/04/2024 10:30 AM EST Tech [place] [address] Jose Barraza 04/04/2024 11:00 AM EST Office [place] [address] Ayla Davis, SHEREE [facility] [place] [address] documented as of this encounter Visit Diagnoses Not on filedocumented in this encounter Care Teams Uniform Maker Relationship Specialty Start Date End Date Beena Wilkes APRN [address] [place] [address] PCP - General Family Medicine 01/13/19 03/02/22 documented as of this encounter
--- OUTSIDE RECORDS SUMMARY | 2024-03-25 13:05 | XMS_ITS | Encounter Summary ---
Author Organization [facility] Address [facility] [place] [address] Care Team Providers Care Owner Oral Surgeon Name Role Phone Beena Wilkes SHEREE Primary Care Provider Encounter Details Date Type Department Care Team (Late st Contact Info) Description 05/02/2019 9:30 AM EST Tech Visit [place] [address] Navarro Gilbert, RVT Peripheral vascular disease, unspecified; Aortoiliac occlusive disease [...] EST Tech Visit [place] [address] Jose Barraza 04/04/2024 11:00 AM EST Office [place] [address] Ayla Davis APRN [facility] [place] [address] documented as of this encounter Procedures Procedure Name Priority Date/Time Associated Diagnosis Comments DUPLEX AORTO BIFEM GRAFT Routine 05/02/2019 8:44 AM EST Peripheral vascular disease, unspecified SHA, LEGS, MULTIPLE LEVELS Routine 05/02/2019 8:44 AM EST Aortoiliac occlusive disease documented in this encounter Results * SHA, legs, multiple levels (05/02/2019 8:44 AM EST) VB Text Report Department: Vascular Surgery Lab Patient: [id number] (EMILIANA FARMER) CPT: 27700 ICD10: Z48.812;I74.09;I 73.9 Referring Physician: PETE GILBERT [...] AM EST Pete Gilbert MD VASCULAR ORDERA [facility] VASCUBASE * Duplex AortoBifem Graft (05/02/2019 8:44 AM EST) VB Text Report Department: Vascular Surgery Lab Patient: [id number] (SMOOTH EMILIANA) CPT: 02205 ICD10: Z48.812;I73.9;I74. 5 Referring Physician: PETE GILBERT [...] AM EST Pete Gilbert MD VASCULAR ORDERA [facility] Performing Organization Address City/State/[facility] Co de Phone Number VASCUBASE documented in this encounter Visit Diagnoses Diagnosis Peripheral vascular disease, unspecified Aortoiliac occlusive 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 documented in this encounter Care Teams Owner Oral Surgeon Relationship Specialty Start Date End Date Beena Wilkes, SYSTEMS ANALYST DEVELOPER [address] [place] [address] PCP - General Family Medicine 01/13/19 03/02/22 documented as of this encounter
--- OUTSIDE RECORDS SUMMARY | 2024-03-25 13:05 | XMS_ITS | Encounter Summary ---
Author Organization [facility] Address [facility] [place] [address] Care Team Providers Care Chief Catalyst Operator Name Role Phone Beena Wilkes SHEREE Primary Care Provider Encounter Details Date Type Department Care Team (Late st Contact Info) Description 06/24/2019 Orders Only [place] [address] Skye Harvey, SONIA Social History Tobacco Use Types Packs/Day Years [...] AM EST Tech [place] [address] Jose Barraza 04/04/2024 11:00 AM EST Office [place] [address] Ayla Davis APRN [facility] [place] [address] documented as of this encounter Visit Diagnoses Not on filedocumented in this encounter Care Teams Chief Catalyst Operator Relationship Specialty Start Date End Date Beena Wilkes, RETAIL BAKERY MANAGER [address] [place] [address] PCP - General Family Medicine 01/13/19 03/02/22 documented as of this encounter
--- OUTSIDE RECORDS SUMMARY | 2024-03-25 13:05 | XMS_ITS | Encounter Summary ---
Author Organization [facility] Address [facility] [place] [address] Care Team Providers Care Acetylene Torch Burner Name Role Phone Beena Wilkes APRN Primary Care Provider [phone] Reason for Visit * Auth/Cert Specialty Diagnoses / Procedures Referred By Contac t Referred To Contact Diagnoses PAD (peripheral artery disease) PAD n/a Procedures PRO BYPASS GRAFT OTHR, AORTOBIFEMORAL @BYPASS GRAFT, AORTOBIFEMORAL W\ SYNTHETIC CONDUIT (WRVU 32.98) Referral ID Status Reason Start Date Expiration Date Visits Re quested Visits Authorized [id number] 1 1 Encounter Details Date Type Department Care Team (Late st Contact Info) Description 03/31/2019 12:11 PM EST Anesthesia Event [place] [address] Gris Loco MD [facility] DR [place]EST[place]Y [place] [address] Angel Betts MD [facility] [place] [address] Anesthesia Record Procedure Summary Procedure Name Responsible [...] second leg near opening 1758 Extubation/LMA Out 1810 an stop data 1822 Recovery or ICU [...] 0735; median cubital vein (antecubital fossa), right; cefn-rwh-tgfqce catheter system; 22 gauge; site symptomatic; 04/04/19; 194403/06/19 0735 by Vikash Casper 04/04/191944 by Roxie Barroso RN (RETIRED) Peripheral IV Line - Single Lumen 03/31/19; 1121; basilic vein (medial side of arm), left; rkjt-ptv-ogzgvs catheter system; 20 gauge; Samia Kay RN; [...] 1257; radi al artery, left; 20 gauge; measjovan; Sterile Prep, Sterile Gloves; other (see comments) (not present on admission); 04/01/19 03/31/19 1257 by Rosita Ayala MD 04/01/19 0000 by Jenna Licea, SADAF (RETIRED) Peripheral IV Line - Single Lumen 03/31/19; 1257; cephalic vein (lateral side of arm), left; ocfc-ows-xkuqgz catheter system; 18 gauge, HINA; measom; 0; 03/31/19; 202903/31/19 1257 by Rosita Ayala MD 03/31/192029 by Rachel Lauren RN (RETIRED) Peripheral IV Line - Single Lumen 03/31/19; 1257; median vein (underside of arm), right; ochv-wjd-bmvfuw catheter system; 14 gauge; measom; 0; no [...] Procedure Summary Date: 03/31/19 Room / Location: [address] MAIN OR Anesthesia Start: 1210 Anesthesia Stop: 1821 Procedure: @BYPASS GRAFT, AORTOBIFEMORAL W\ SYNTHETIC CONDUIT (WRVU 32.98) (N/A ) Diagnosis: (PAD) Surgeon: Judy Gilbert MD Responsible Provider: Gris Loco MD Anesthesia Type: general ASA Status: 3 All Anesthesia Providers: Anesthesiologist: Gris Loco MD Insulation Inspector: Rosita Ayala MD Vitals Value Taken Time [...] Location: Operating Room (OR 19) Baseline Information (AHW-lehm-pidfxqyu entry for database use): Best phone number to contact patient: [phone] Addiction History: No Chronic Pain: No On [...] T8-T9 - bilateral epidural dye spread noted. Resident/HEAD OF BUSINESS DEVELOPMENT: Di Avalos MD Second Resident/HEAD OF BUSINESS DEVELOPMENT: Fellow: Attending Physician: Kizzy Pompa MD ~~~~~~~~~~~~~~~~~~~~~~~~~~~~~~~~~~~~~~~~~~~~~~~~~~~~~~~~~~~~ [...] 9) performed by Yves Vegas MD at [facility] MAIN OR ? ? PRO REVSC OPEN/PERCUTANEOUS ILIAC ART W STNT & ANGIOP IPSI VSL Bilateral 03/05/2018 REVSC OPN\PRQ ILIAC ART W\STNT & ANGIOP EA IPSILATERAL VSL-ALEX (WRVU 4.25) performed by Yves Vegas MD at [facility] MAIN OR ? ? PRO REVSC OPEN/PERCUTANEOUS ILIAC ART W STNT PLMT&ANGIO PRECIOUS VSL UNILAT Bilateral 03/05/2018 REVSC OPN\PRQ ILIAC ART W\STNT PLMT & ANGIOP SAME VSL BILAT (WRVU 10) performed by Yves Vegas MD at [facility] MAIN OR Social History Tobacco Use [...] line Rosita Ayala MD 03/28/2019 Staff addendum ([facility]): Patient seen and examined on DOS. As above, 45kg (BMI 18) current and [facility] smoker with etoh abuse (5 beers daily, [...] 7 mm, #1 attempt, EZ MV. Shameka Almanza APRN Pre-Admission Testing [phone] documented in this encounter Plan of Treatment Upcoming Encounters Date Type Department Care Team (Late st Contact Info) Description 04/04/2024 10:30 AM EST Tech [place] [address] Jose Barraza 04/04/2024 11:00 AM EST Office Visit [place] [address] Ayla Davis, SHEREE [facility] [place] [address] documented as of this encounter Procedures Procedure [...] Location: Operating Room (OR 19) Baseline Information (UGU-pzsa-sfloyomb entry for database use): Best phone number to contact patient: ??[phone] Addiction History: ??No Chronic Pain: ??No On [...] - bilateral epidural dye spread noted. ?? Resident/HEAD OF BUSINESS DEVELOPMENT: ?Di Avalos MD Second Resident/HEAD OF BUSINESS DEVELOPMENT: Fellow: ? Attending Physician: ? Kizzy Pompa MD ~~~~~~~~~~~~~~~~~~~~~~~~~~~~~~~~~~~~~~~~~~~~~~~~~~~~~~~~~~~~ Gris Loco MD DIRECTOR OCCUPATIONAL CHGS documented in this encounter Visit Diagnoses [...] mg documented in this encounter Care Teams Acetylene Torch Burner Relationship Specialty Start Date End Date Beena Wilkes, MAGNETIC PROSPECTING SUPERVISOR [address] [place] [address] PCP - General Family Medicine 01/13/19 03/02/22 documented as of this encounter
--- OUTSIDE RECORDS SUMMARY | 2024-03-25 13:05 | XMS_ITS | Encounter Summary ---
Author Organization [facility] [place] [address] Care Team Providers Care Boat Builder And Repairer Name Role Phone Beena Wilkes APRN Primary Care Provider [phone] Reason for Visit * Reason Onset Date Comments Nicotine Dependence 05/08/2019 1 month foll ow-up Encounter Details Date Type Department Care Team (Late st Contact Info) Description 05/08/2019 Telephone [place] [address] Buck Watts, RN Nicotine Dependence [...] in the future. Buck Watts, MSN, RN-, [facility] Tobacco Play Writer [facility] Pager #[phone] documented in this encounter Plan of Treatment Upcoming Encounters Date Type Department Care Team (Late st Contact Info) Description 04/04/2024 10:30 AM EST Tech [place] [address] Jose Barraza 04/04/2024 11:00 AM EST Office Visit [place] [address] Ayla Davis APRN [facility] [place] [address] documented as of this encounter Visit Diagnoses Not on filedocumented in this encounter Care Teams Boat Builder And Repairer Relationship Specialty Start Date End Date Beena Wilkes APRN [address] [place] [address] PCP - General Family Medicine 01/13/19 03/02/22 documented as of this encounter
--- OUTSIDE RECORDS SUMMARY | 2024-03-25 13:05 | XMS_ITS | Encounter Summary ---
Author Organization [facility] Address [facility] [place] [address] Care Team Providers Care Machine Plug Shaper Name Role Phone Beena Wilkes APRN Primary Care Provider [phone] Reason for Visit * Auth/Cert Specialty Diagnoses / Procedures Referred By Contac t Referred To Contact Diagnoses PAD (peripheral artery disease) PAD n/a Procedures PRO BYPASS GRAFT OTHR, AORTOBIFEMORAL @BYPASS GRAFT, AORTOBIFEMORAL W\ SYNTHETIC CONDUIT (WRVU 32.98) Referral ID Status Reason Start Date Expiration Date Visits Re quested Visits Authorized [id number] 1 1 Encounter Details Date Type Department Care Team (Late st Contact Info) Description 03/31/2019 12:00 PM EST - 03/31/2019 5:28 PM EST Surgery [place] [address] Judy Álvarez MD [facility] [place] [address] @BYPASS GRAFT, AORTOBIFEMORAL W\ SYNTHETIC CONDUIT (WRVU [...] AM Darlin Mendez [place] Vascular Lab at [facility] Arrive at: Systems Software Manager Area 05/06/2019 8:30 AM Rashawn Dawn MD Vascular Surgery at [facility] Arrive at: Systems Software Manager Area Future Orders Complete By Expires SHA, legs, multiple levels [VAS8 Custom] 05/05/2019 11/04/2019 Process Instructions: There is no in-house vascular crime lab analyst available on weeknights (5pm-8am), weekends, or holidays. IF THIS IS A REQUEST FOR AN EMERGENT STUDY DURING THOSE HOURS, please have the senior provider responsible for the patient page the Vascular Surgery Fellow/Senior Resident business relationship manager to discuss options. Scheduling Instructions: Questions: Indication for study/signs & symptoms: s/p aortobifemoral bypass Question to be answered: lower extremity flow Preferred location?: [facility] Arterial Duplex, Bilat Legs [VAS3 Custom] 05/05/2019 (Approximate) 11/04/2019 Process Instructions: There is no in-house vascular crime lab analyst available on weeknights (5pm-8am), weekends, or holidays. IF THIS IS A REQUEST FOR AN EMERGENT STUDY DURING THOSE HOURS, please have the senior provider responsible for the patient page the Vascular Surgery Fellow/Senior Resident business relationship manager to discuss options. Scheduling Instructions: Questions: Indication [...] For any problems or questions please call [phone] TOR Broussard, seat builder Nurse Clinician For issues on weeknights after 5pm and weekends please call [phone] and ask for the Vascular Fellow business relationship manager. Heron Bailey MD 04/05/2019 documented in this [...] For any problems or questions please call [phone] TOR Broussard, seat builder Nurse Clinician For issues on weeknights after 5pm and weekends please call [phone] and ask for the Vascular Fellow business relationship manager. documented in this encounter Medications at Time [...] of nutrition support. Monie Saini, GERRI Pager [phone] * Laura Quiros NCR OPERATOR - 04/04/2019 8:22 AM EST Vascular Surgery [...] Narrative:Visited to introduce and assess acceptance of Refrigerator Repairman services. Pt was not available for visit [...] year. 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 Pt appears [...] encounter: 44.3 kg (97 lb 10.6 oz). Swain Body Weight:42.9- 47.7 kg Usual Body Weight: [...] day of surgery (03-14) at midnight. The [facility] clinic was called and spoke [...] file Gets together: Not on file Attends jainism service: Not on file Active member of [...] MD, MS Vascular surgery fellow Service pager [phone] documented in this encounter Miscellaneous Notes * [...] no PT needs. Time IN / OUT: 8139-4384 Total Evaluation Minutes, Physical Therapy: 20(1 TA) Oskar Carney DPKika Pager: [phone] Physical Therapy Inpatient Rehabilitation Department * Plan [...] e-cigarette ( X) Cigarettes Brand currently smoking: [place] lights/generics Current amount: 0.25 ppd Age initiated: [...] in places where it is forbidden ex [facility] No Yes 0 3. Which cigarette [...] at home. She has recently applied for [place] Medicaid. I reviewed the resources available through the MD quit line and she has consented to [...] She has also been provided with a [facility] Smoking Cessation packet and the contents have been reviewed with her. She has my card with my contact information and has been encouraged to call if she has additional q uestions or concerns. Referral to MD quitline placed. The patient has been encouraged to follow-up with PCP and/or the outpatient Tobacco Clinical Unit Educator, Fanny Gibbs APRN, and GEOFFREY Colon, in 3K clinic. Buck Watts, MSN, RN-, [facility] Tobacco Process Development Chemist [facility] Pager #[phone] * Plan of Care - Oskra Carney - 04/03/2019 3:13 PM EST Physical [...] 32.98) performed by Judy Álvarez MD at [facility] MAIN OR ??? PRO PLACE INTRAVASCULAR STENT OPEN/PERCUTAN 1ST ARTERY N/A 03/05/2018 TRANSCATH PLACEMENT INTRAVASCULAR STENT, OPN/PERQ, INITIAL ARTERY, S&I (WRVU 9) performed by Yves Vegas MD at [facility] MAIN OR ? ? PRO REVSC OPEN/PERCUTANEOUS ILIAC ART W STNT & ANGIOP IPSI VSL Bilateral 03/05/2018 REVSC OPN\PRQ ILIAC ART W\STNT & ANGIOP EA IPSILATERAL VSL-ALEX (WRVU 4.25) performed by Yves Vegas MD at [facility] MAIN OR ? ? PRO REVSC OPEN/PERCUTANEOUS ILIAC ART W STNT PLMT&ANGIO PRECIOUS VSL UNILAT Bilateral 03/05/2018 REVSC OPN\PRQ ILIAC ART W\STNT PLMT & ANGIOP SAME VSL BILAT (WRVU 10) performed by Yves Vegas MD at [facility] MAIN OR Social History: Pt lives alone but has boyfriend who comes over several times a week and has supportive family as well. 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 Is normally indep but was having [...] outlinedin this evaluation. Time IN / OUT: 6253-9040 Total Evaluation Minutes, Physical Therapy: 24(Eval) Oskar Carney, PT Pager: [phone] Physical Therapy Inpatient Rehabilitation Department * Plan [...] given this morning. Adequate urine output. Increased OPTICAL TECHNICIAN x2 today per APS. Will continue to [...] Appropriate) 04/01/19 1650 Interdisciplinary Rounds/Family Conf Participants physician;patient;pharmacy;nursing;bilingual case manager;family;dietitian/nutrition services * Initial Assessments - [...] Admission: Independent Home Environment: Lives with life media specialist of 10 years, Naif Clemens in an apartment in [facility]. Social & Family Supports/Community Resources: Good support [...] Other: Has applied for financial assistance from [facility]. Also now qualifies for food stamps and fuel assistance. Primary Care Provider: Beena Wilkes APRN [phone] Patient/Caregiver Goals of Treatment: to return home [...] unavailable for both attempts. I left the [facility] Tobacco Treatment at the bedside. I will be out of hospital tomorrow and willfollow-up with patient on , the . Buck Watts, MSN, RN-[facility] Tobacco Process Development Chemist [facility] Pager #[phone] * Plan of Care - Jenna Licea [...] Vasquez MD - 03/31/2019 7:[address] [facility] Operative Note Patient Name: Walker Farmer : [id number] MR#: [id number] Case Date: 03/31/2019 Surgeon: Surgeon(s) and Role: [...] PATHOLOGY Left Groin Lymph Node OR 15 82981 PAD Left Groin Lymph Node excision YES, [...] Implant Name Type Inv. Item Serial No. Boat Wrapper Lot No. LRB No. Used Action GRAFT,HMGD,KNT,BIFUR,[id number] ([id number]) - [id number] IMPLANTS GRAFT,HMGD,KNT,BIFUR,[id number] ([id number]) [id number] [facility] - [facility] [id number] N/A 1 Implanted Infection Bundle used? [...] AM EST Tech [place] [phone] MadiJose Jorge 04/04/2024 11:00 AM EST Office Visit [place] [phone] Ayla Davis, NCR OPERATOR [facility] [place] [address] documented as of this encounter Procedures Procedure [...] Routine 03/31/2019 6:44 PM EST BLOOD GAS ARTERIAL POC Routine 9 5:42 PM EST HEMOGRAM STAT 03/31/2019 4:30 PM EST DIFFERENTIAL, AUTOMATED STAT 03/31/20 19 4:30 PM EST HC PARTIAL THROMBOPLASTIN TIME STAT 03/31/2019 4:30 PM EST HC PROTHROMBIN TIME STAT 03/31/2019 4 :30 PM EST HC FIBRINOGEN TITER STAT 03/31/2019 4 :30 PM EST HC CBC,PLT & AUTO DIFF STAT 9 4:30 PM EST BLOOD GAS ARTERIAL POC Routine 9 4:01 PM EST SPECIMEN TO PATHOLOGY STAT 03/31/2019 1:35 PM EST SURGICAL PATHOLOGY REPORT Routine 03/31/2019 1:26 PM EST BLOOD GAS ARTERIAL POC Routine 9 1:13 PM EST XR FLUORO NO RAD <1HR - OR USE Routine 03/31/2019 12:11 PM EST Bypass Graft Othr, Aortobifemoral ([id number]) 03/31/2019 12:10 PM EST PAD BYPASS GRAFT, [...] Text Report Department: Vascular Surgery Lab Patient: [id number] (WALKER FARMER) CPT: 46361 ICD10: Z48.812;I74.09;I 73.9 Referring Physician: JUDY ÁLVAREZ [...] AM EST Judy Álvarez MD VASCULAR ORDERA [facility] Organization Address City/State/ZIP Co de Phone Number VASCUBASE * SCAN DOC: IMPLANTABLE DEVICES (04/07/2019 12:00 AM EST) Narrative 04/07/2019 12:00 AM EST Ordered by an unspecified provider. Scanning Provider MEDIA MGR SCAN EXT O RDR/RSLT * Differential, Automated (04/04/2019 6:15 AM EST) Neutrophil % 64.9 % [facility] Neutrophil Absolute 3.94 1.70 - 6.10 x10(3)/[facility] Lymph % 23.7 % [facility] Lymphocytes Abs 1.4 0.9 - 3.2 x10(3)/[facility] Monocyte % 8.1 % [facility] Monocyte Abs 0.5 0.3 - 0.9 x10(3)/[facility] LABOR[facility] Eos % 2.8 % [facility] Eosinophils Abs 0.2 0.0 - 0.4 x10(3)/[facility] LABOR[facility] Basophil % 0.3 % [facility] Baso Absolute 0.0 0.0 - 0.1 x10(3)/[facility] LABORATORY Immature Gran % 0.20 % [facility] Comment: Immature granulocytes(IG's)percentage and absolute count will include metamyelocytes, myelocytes, and promyelocytes. Blood smears from CBCs yielding IG's will be scanned manually for concordance. If this scan disagrees with the automated IG or if promyelocytes are noted, a manual differential will be performed. Immature Gran Absolute 0.01 0.00 - 0.04 x10(3)/[facility] LABOR[facility] Blood specimen (specimen) 04/04/2019 6:15 AM EST 04/04/2019 6:30 AM EST Narrative Resulting Agency Comment Spec In Lab Heron Bailey MD HEMATOLOGY ORDERABLE S [facility] [place] [address] * (ABNORMAL) Hemogram (04/04/2019 6:15 AM EST) White Blood Cell 6.1 4.0 - 9.5 x10(3)/mc L [facility] Red Blood Cell 2.94(L) 4.00 - 5.21 x10(6)/mc L [facility] Hemoglobin 9.2(L) 11.7 - 15.5 gm/dL [facility] Hematocrit 28.1(L) 35.7 - 45.8 % [facility] Mean Cell Volume 95.6(H) 82.6 - 94.4 fL [facility] Mean Cell Hemoglobin 31.3 27.1 - 32.0 pg [facility] Mean Cell Hemoglobin Concentration 32.7 31.7 - 35.0 gm/dL [facility] Platelet 233 145 - 357 x10(3)/mc L [facility] RDW Standard Deviation 45.8 37.0 - 46.0 fL [facility] RDW coefficient of variation 13.1 11.5 - 14.1 % [facility] Mean Platelet Volume 10.3 7.6 - 12.9 fL [facility] NRBC% auto 0.0 % [facility] NRBC Absolute 0.000 0.000 - 0.000 x10(3)/mc L [facility] Blood specimen (specimen) 04/04/2019 6:15 AM EST 04/04/2019 6:30 AM EST Narrative Resulting Agency Comment Spec In Lab Heron Bailey MD HEMATOLOGY ORDERABLE S [facility] [place] [address] * (ABNORMAL) Phosphorus (04/04/2019 6:15 AM EST) Phosphorus 2.2(L) 2.5 - 4.5 mg/dL [facility] Blood specimen (specimen) 04/04/2019 6:15 AM EST 04/04/2019 6:30 AM EST Narrative Resulting Agency Comment Spec In Lab Judy Álvarez MD CHEMISTRY ORDER ZAINA Performing Organization Address City/[facility]/ZIP Co de Phone Number [facility] [place] [address] * Magnesium (04/04/2019 6:15 AM EST) Magnesium 0.81 0.69 - 1.07 mmol/L [facility] Blood specimen (specimen) 04/04/2019 6:15 AM EST 04/04/2019 6:30 AM EST Narrative Resulting Agency Comment Spec In Lab Judy Álvarez MD CHEMISTRY ORDER ZAINA [facility] [place] [address] * (ABNORMAL) Basic Metabolic Panel (non-fasting) (04/04/2019 6:15 AM EST) Glucose 152 65 - 199 mg/dL [facility] Comment:Diabetes: >=200 mg/d L plus symptoms Blood Urea Nitrogen 4(L) 8 - 18 mg/dL [facility] Creatinine 0.38(L) 0.70 - 1.20 mg/dL [facility] Sodium 140 135 - 145 mmol/L [facility] Potassium 3.9 3.5 - 5.0 mmol/L [facility] Comment: Please note: ??Patients with WBC >100,000 may have falsely elevated Potassium levels. ??For accurate Potassium quantification in these patients send serum separator tube (gold top) for subsequent determinations. ??Contact the Clinical Chemistry Laboratory if there are any questions. Chloride 106 98 - 107 mmol/L [facility] Carbon Dioxide 24 22 - 31 mmol/L [facility] Anion Gap 10 5 - 15 mmol/L [facility] Calcium 8.1(L) 8.5 - 10.5 mg/dL [facility] Est Glomerular Filtration Rate 121 >=60 mL/min/1. 73 m?? [facility] Comment: The eGFR was calculated using the CKD-EPI equation. As with all creatinine based estimates of kidney function, eGFR values calculated with the CKD-EPI equation are not accurate in patients with acute kidney failure, extremes of body mass or the acutely ill. http://Glo [employer]ags/[facility] eGFR 140 >=60 mL/min/1. 73 m?? [facility] Comment: The eGFR was calculated using the CKD-EPI equation. As with all creatinine based estimates of kidney function, eGFR values calculated with the CKD-EPI equation are not accurate in patients with acute kidney failure, extremes of body mass or the acutely ill. [email or web address] [email or web address] Blood specimen (specimen) 04/04/2019 6:15 AM EST 04/04/2019 6:30 AM EST Narrative Resulting Agency Comment Spec In Lab Judy Álvarez MD CHEMISTRY ORDER ZAINA [facility] [address] * XR Abdomen 1 view (Generic) (04/02/2019 [...] please contact the number below. ? Narrative 04/02/2019 7:58 AM EST EXAMINATION: XR [...] below. Electronically signed by: Evelyn Espinoza [facility] [place] ([phone]),at 04/02/2019 7:58 AM Judy Álvarez MD IMG DX ORDERABL ES * Phosphorus (04/01/2019 7:41 PM EST) Phosphorus 2.5 2.5 - 4.5 mg/dL [facility] Blood specimen (specimen) 04/01/2019 7:41 PM EST 04/01/2019 7:46 PM EST Narrative Resulting Agency Comment Spec In Lab Judy Álvarez MD CHEMISTRY ORDER ZAINA Performing Organization Address City/[facility]/ZIP Co de Phone Number [facility] [place] [address] * Magnesium (04/01/2019 7:41 PM EST) Magnesium 0.78 0.69 - 1.07 mmol/L [facility] Blood specimen (specimen) 04/01/2019 7:41 PM EST 04/01/2019 7:46 PM EST Narrative Resulting Agency Comment Spec In Lab Judy Álvarez MD CHEMISTRY ORDER ZAINA Performing Organization Address [facility] Co de Phone Number [facility] [place] [address] * (ABNORMAL) Basic Metabolic Panel (non-fasting) (04/01/2019 7:41 PM EST) Pathologist [facility] Glucose 145 65 - 199 mg/dL [facility] Comment:Diabetes: >=200 mg/d L plus symptoms Blood Urea Nitrogen 6(L) 8 - 18 mg/dL [facility] Creatinine 0.50(L) 0.70 - 1.20 mg/dL [facility] Sodium 140 135 - 145 mmol/L [facility] Potassium 3.8 3.5 - 5.0 mmol/L [facility] Comment: Please note: ??Patients with WBC >100,000 may have falsely elevated Potassium levels. ??For accurate Potassium quantification in these patients send serum separator tube (gold top) for subsequent determinations. ??Contact the Clinical Chemistry Laboratory if there are any questions. Chloride 104 98 - 107 mmol/L [facility] Carbon Dioxide 24 22 - 31 mmol/L [facility] Anion Gap 12 5 - 15 mmol/L [facility] Calcium 8.6 8.5 - 10.5 mg/dL [facility] Est Glomerular Filtration Rate 110 >=60 mL/min/1. 73 m?? [facility] Comment: The eGFR was calculated using the CKD-EPI equation. As with all creatinine based estimates of kidney function, eGFR values calculated with the CKD-EPI equation are not accurate in patients with acute kidney failure, extremes of body mass or the acutely ill. http://Glo Bags/[facility] eGFR 128 >=60 mL/min/1. 73 m?? [facility] Comment: The eGFR was calculated using the CKD-EPI equation. As with all creatinine based estimates of kidney function, eGFR values calculated with the CKD-EPI equation are not accurate in patients with acute kidney failure, extremes of body mass or the acutely ill. http://Glo Bags/DHMCnkf Blood specimen (specimen) 04/01/2019 7:41 PM EST 04/01/2019 7:46 PM EST Narrative Resulting Agency Comment Spec In Lab Judy Álvarez MD CHEMISTRY ORDER ZAINA Performing Organization Address [facility] Co de Phone Number [facility] [place] [address] * (ABNORMAL) Hemoglobin and Hematocrit, blood (04/01/2019 5:24 AM EST) Hemoglobin 10.9(L) 11.7 - 15.5 gm/dL [facility] Hematocrit 32.4(L) 35.7 - 45.8 % [facility] Blood specimen (specimen) 04/01/2019 5:24 AM EST 04/01/2019 5:52 AM EST Narrative Resulting Agency Comment Spec In Lab Judy Álvarez MD HEMATOLOGY ORDE RABLES Performing Organization Address City/[facility]/ZIP Co de Phone Number [facility] [place] [address] * (ABNORMAL) Basic Metabolic Panel (non-fasting) (04/01/2019 5:24 AM EST) Glucose 185 65 - 199 mg/dL [facility] Comment:Diabetes: >=200 mg/d L plus symptoms Blood Urea Nitrogen 6(L) 8 - 18 mg/dL [facility] Creatinine 0.58(L) 0.70 - 1.20 mg/dL [facility] Sodium 139 135 - 145 mmol/L [facility] Potassium 3.6 3.5 - 5.0 mmol/L [facility] Comment: Please note: ??Patients with WBC >100,000 may have falsely elevated Potassium levels. ??For accurate Potassium quantification in these patients send serum separator tube (gold top) for subsequent determinations. ??Contact the Clinical Chemistry Laboratory if there are any questions. Chloride 102 98 - 107 mmol/L [facility] Carbon Dioxide 23 22 - 31 mmol/L [facility] Anion Gap 14 5 - 15 mmol/L [facility] Calcium 8.2(L) 8.5 - 10.5 mg/dL [facility] Est Glomerular Filtration Rate 105 >=60 mL/min/1. 73 m?? [facility] Comment: The eGFR was calculated using the CKD-EPI equation. As with all creatinine based estimates of kidney function, eGFR values calculated with the CKD-EPI equation are not accurate in patients with acute kidney failure, extremes of body mass or the acutely ill. http://[employer] eGFR 122 >=60 mL/min/1. 73 m?? [facility] Comment: The eGFR was calculated using the CKD-EPI equation. As with all creatinine based estimates of kidney function, eGFR values calculated with the CKD-EPI equation are not accurate in patients with acute kidney failure, extremes of body mass or the acutely ill. http://Glo B[employer]/[facility]MCnkf Blood specimen (specimen) 04/01/2019 5:24 AM EST 04/01/2019 5:52 AM EST Narrative Resulting Agency Comment Spec In Lab Judy Álvarez MD CHEMISTRY ORDER ZAINA [facility] [place] [address] * (ABNORMAL) Hemogram (03/31/2019 10:02 PM EST) White Blood Cell 15.4(H) 4.0 - 9.5 x10(3)/ L [facility] Red Blood Cell 3.40(L) 4.00 - 5.21 x10(6)/mc L [facility] Hemoglobin 10.9(L) 11.7 - 15.5 gm/dL [facility] Hematocrit 32.3(L) 35.7 - 45.8 % [facility] Mean Cell Volume 95.0(H) 82.6 - 94.4 fL [facility] Mean Cell Hemoglobin 32.1(H) 27.1 - 32.0 pg [facility] Mean Cell Hemoglobin Concentration 33.7 31.7 - 35.0 gm/dL [facility] Platelet 254 145 - 357 x10(3)/[facility] LABORATORY RDW Standard Deviation 45.9 37.0 - 46.0 [facility] LAB[facility]ATORY RDW coefficient of variation 13.1 11.5 - 14.1 % [facility] Mean Platelet Volume 9.7 7.6 - 12.9 fL [facility] NRBC% auto 0.0 % [facility] NRBC Absolute 0.000 0.000 - 0.000 x10(3)/[facility] LAB[facility] Blood specimen (specimen) 03/31/2019 10:02 PM EST 03/31/2019 10:06 PM EST Narrative Resulting Agency Comment Spec In Lab Judy Álvarez MD HEMATOLOGY HALEY GARCIA [facility] [place] [address] * (ABNORMAL) BMP w/fasting Glucose (03/31/2019 6:44 PM EST) Glucose Fasting 158(H) 65 - 99 mg/dL [facility] Comment: ?Fasting* Glucose Interpretive Criteria [...] of Diabetes Mellitus, Position Statement from the [place] [employer]. ??Diabetes Care, Volume 33, Supplement 1, May 2009 Blood Urea Nitrogen 7(L) 8 - 18 mg/dL [facility] Creatinine 0.51(L) 0.70 - 1.20 mg/dL [facility] Sodium 144 135 - 145 mmol/L [facility] Potassium 3.2(L) 3.5 - 5.0 mmol/L [facility] Comment: Please note: ??Patients with WBC >100,000 may have falsely elevated Potassium levels. ??For accurate Potassium quantification in these patients send serum separator tube (gold top) for subsequent determinations. ??Contact the Clinical Chemistry Laboratory if there are any questions. Chloride 109(H) 98 - 107 mmol/L [facility] Carbon Dioxide 22 22 - 31 mmol/L [facility] Anion Gap 13 5 - 15 mmol/L [facility] Calcium 8.2(L) 8.5 - 10.5 mg/dL [facility] Est Glomerular Filtration Rate 110 >=60 mL/min/1. 73 m?? [facility] Comment: The eGFR was calculated using the CKD-EPI equation. As with all creatinine based estimates of kidney function, eGFR values calculated with the CKD-EPI equation are not accurate in patients with acute kidney failure, extremes of body mass or the acutely ill. [email or web address] eGFR 127 >=60 mL/min/1. 73 m?? [facility] Comment: The eGFR was calculated using the CKD-EPI equation. As with all creatinine based estimates of kidney function, eGFR values calculated with the CKD-EPI equation are not accurate in patients with acute kidney failure, extremes of body mass or the acutely ill. [email or web address] Blood specimen (specimen) 03/31/2019 6:44 PM EST 03/31/2019 6:55 PM EST Narrative Resulting Agency Comment Spec In Lab Judy Álvarez MD CHEMISTRY ORDER ZAINA Performing Organization Address City/[facility]/ZIP Co de Phone Number [facility] [place] [address] * Lactate, whole blood, send to lab ([facility]) (03/31/2019 6:44 PM EST) Lactate WB 0.8 0.5 - 2.2 mmol/L [facility] Blood specimen (specimen) 03/31/2019 6:44 PM EST 03/31/2019 6:55 PM EST Narrative Resulting Agency Comment Spec In Lab Judy Álvarez MD CHEMISTRY ORDER ZAINA Performing Organization Address City/[facility] Co de Phone Number [facility] [place] [address] * (ABNORMAL) Hemogram (03/31/2019 6:44 PM EST) White Blood Cell 14.8(H) 4.0 - 9.5 x10(3)/mc L [facility] Red Blood Cell 3.46(L) 4.00 - 5.21 x10(6)/mc L [facility] Hemoglobin 11.0(L) 11.7 - 15.5 gm/dL [facility] Hematocrit 33.0(L) 35.7 - 45.8 % [facility] Mean Cell Volume 95.4(H) 82.6 - 94.4 fL [facility] Mean Cell Hemoglobin 31.8 27.1 - 32.0 pg [facility] Mean Cell Hemoglobin Concentration 33.3 31.7 - 35.0 gm/dL [facility] Platelet 267 145 - 357 x10(3)/mc L [facility] RDW Standard Deviation 45.4 37.0 - 46.0 fL [facility] RDW coefficient of variation 13.0 11.5 - 14.1 % [facility] Mean Platelet Volume 9.6 7.6 - 12.9 fL [facility] NRBC% auto 0.0 % [facility] NRBC Absolute 0.000 0.000 - 0.000 x10(3)/mc L [facility] Blood specimen (specimen) 03/31/2019 6:44 PM EST 03/31/2019 6:55 PM EST Narrative Resulting Agency Comment Spec In Lab Judy Álvarez MD HEMATOLOGY HALEY GARCIA Performing Organization Address City/State/[facility] Co de Phone Number [facility] [place] [address] * (ABNORMAL) BLOOD GAS 2 ARTERIAL (03/31/2019 5:42 PM EST) pH, Arterial 7.37 7.35 - 7.45 [facility] PCO2, Arterial 40 35 - 45 mmHg [facility] PO2, Arterial 286(H) 85 - 104 mmHg [facility] Bicarbonate, Arterial 22.7 20.0 - 26.0 mmol/L [facility] Base Excess, Arterial -2.5 -3.0 - 3.0 mmol/L [facility] Hgb Blood Gas 10.6(L) 11.7 - 15.5 gm/dL [facility] Oxyhemoglobin, Arterial 98.6(H) 94.0 - 97.0 % [facility] Carboxyhemoglob in, Arterial 0.4 % [facility] Comment: Nonsmokers: 0.5-1.5% COHB Smokers: Variable, but usually less than 10% Toxic: 20-30% COHB Lethal: Greater than 60% COHB Methemoglobin, Arterial 0.3 <=1.5 % [facility] Na Whole Blood 140 135 - 145 mmol/L [facility] K Whole Blood 3.1(L) 3.5 - 5.0 mmol/L [facility] Comment: Please note: Patients with WBC >100,000 may have falsely elevated Potassium levels. Contact the Clinical Chemistry Laboratory if there are any questions. ICa Whole Blood 1.14(L) 1.15 - 1.33 mmol/L [facility] Comment: Note: ??Total bilirubin higher than 20 mg/dL may lead to falsely low ionized calcium. CL Whole Blood 111(H) 98 - 107 mmol/L [facility] Gluc Whole Bld 143 65 - 199 mg/dL [facility] Comment:Diabetes: >=200 mg/d L plus symptoms. Lactate WB 1.1 0.5 - 2.2 mmol/L [facility] Blood specimen (specimen) 03/31/2019 5:42 PM EST 03/31/2019 5:42 PM EST Judy Álvarez MD POINT OF CARE T EST ORDERABLES Performing Organization Address City/State/[facility] Co de Phone Number [facility] [place] [address] * (ABNORMAL) Differential, Automated (03/31/2019 4:30 PM EST) Neutrophil % 77.1 % [facility] Neutrophil Absolute 13.23(H) 1.70 - 6.10 x10(3)/mc L [facility] Lymph % 17.6 % [facility] Lymphocytes Abs 3.0 0.9 - 3.2 x10(3)/mc L [facility] Monocyte % 4.1 % [facility] Monocyte Abs 0.7 0.3 - 0.9 x10(3)/mc L [facility] Eos % 0.3 % [facility] Eosinophils Abs 0.1 0.0 - 0.4 x10(3)/[facility] Basophil % 0.4 % [facility] Baso Absolute 0.1 0.0 - 0.1 x10(3)/[facility] Immature Gran % 0.50 % [facility] Comment: Immature granulocytes(IG's)percentage and absolute count will include metamyelocytes, myelocytes, and promyelocytes. Blood smears from CBCs yielding IG's will be scanned manually for concordance. If this scan disagrees with the automated IG or if promyelocytes are noted, a manual differential will be performed. Immature Gran Absolute 0.09(H) 0.00 - 0.04 x10(3)/[facility] Blood specimen (specimen) 03/31/2019 4:30 PM EST 03/31/2019 4:32 PM EST Narrative Resulting Agency Comment Spec In Lab Rosita Ayala MD HEMATOLOGY ORDERABLE S [facility] [place] [address] * (ABNORMAL) Hemogram (03/31/2019 4:30 PM EST) White Blood Cell 17.2(H) 4.0 - 9.5 x10(3)/[facility] Red Blood Cell 3.46(L) 4.00 - 5.21 x10(6)/[facility] Hemoglobin 11.1(L) 11.7 - 15.5 gm/dL [facility] Hematocrit 33.2(L) 35.7 - 45.8 % [facility] Comment: This result has been called to HOSEA WHITTAKER by Jag Harris on 03 31 2019 at 1701, and has been read back. Mean Cell Volume 96.0(H) 82.6 - 94.4 fL [facility] Mean Cell Hemoglobin 32.1(H) 27.1 - 32.0 pg [facility] Mean Cell Hemoglobin Concentration 33.4 31.7 - 35.0 gm/dL [facility] Platelet 280 145 - 357 x10(3)/mc L [facility] RDW Standard Deviation 45.8 37.0 - 46.0 fL [facility] RDW coefficient of variation 13.1 11.5 - 14.1 % [facility] Mean Platelet Volume 9.9 7.6 - 12.9 fL [facility] NRBC% auto 0.0 % [facility] NRBC Absolute 0.000 0.000 - 0.000 x10(3)/mc L [facility] Blood specimen (specimen) 03/31/2019 4:30 PM EST 03/31/2019 4:32 PM EST Narrative Resulting Agency Comment Spec In Lab Rosita Ayala MD HEMATOLOGY ORDERABLE S Performing Organization Address City/[facility]/ZIP Co de Phone Number [facility] [place] [address] * Fibrinogen (03/31/2019 4:30 PM EST) Fibrinogen 209 200 - 393 mg/dL [facility] Comment: A fibrinogen level >100 mg/dL is adequate for hemostasis in most patients without underlying bleeding disorders. Blood specimen (specimen) 03/31/2019 4:30 PM EST 03/31/2019 4:32 PM EST Narrative Resulting Agency Comment Spec In Lab Judy Álvarez MD HEMATOLOGY ORDE RADHA Performing Organization Address City/[facility]/ZIP Co de Phone Number [facility] [place] [address] * (ABNORMAL) APTT (03/31/2019 4:30 PM EST) Partial Thromboplastin Time >160(Crit ical) 25 - 37 sec [facility] Comment: Called by: , Read [...] MD HEMATOLOGY HALEY GARCIA Performing Organization Address [facility] de Phone Number [facility] [place] [address] * (ABNORMAL) Prothrombin Time (03/31/2019 4:30 PM EST) Prothrombin Time 13.2(H) 9.4 - 12.5 sec [facility] International Normalization Ratio 1.1 [facility] Comment: An INR <2.0 indicates adequate [...] MD HEMATOLOGY HALEY GARCIA Performing Organization Address [facility] de Phone Number [facility] [place] [address] * (ABNORMAL) BLOOD GAS 2 ARTERIAL (03/31/2019 4:01 PM EST) pH, Arterial 7.34(L) 7.35 - 7.45 [facility] PCO2, Arterial 45 35 - 45 mmHg [facility] PO2, Arterial 271(H) 85 - 104 mmHg [facility] Bicarbonate, Arterial 24.1 20.0 - 26.0 mmol/L [facility] Base Excess, Arterial -1.7 -3.0 - 3.0 mmol/L [facility] Hgb Blood Gas 11.9 11.7 - 15.5 gm/dL [facility] Oxyhemoglobin, Arterial 98.5(H) 94.0 - 97.0 % [facility] Carboxyhemoglob in, Arterial 0.5 % [facility] Comment: Nonsmokers: 0.5-1.5% COHB Smokers: Variable, but usually less than 10% Toxic: 20-30% COHB Lethal: Greater than 60% COHB Methemoglobin, Arterial 0.3 <=1.5 % [facility] Na Whole Blood 140 135 - 145 mmol/L [facility] K Whole Blood 3.3(L) 3.5 - 5.0 mmol/L [facility] Comment: Please note: Patients with WBC >100,000 may have falsely elevated Potassium levels. Contact the Clinical Chemistry Laboratory if there are any questions. ICa Whole Blood 1.15 1.15 - 1.33 mmol/L [facility] Comment: Note: ??Total bilirubin higher than 20 mg/dL may lead to falsely low ionized calcium. CL Whole Blood 110(H) 98 - 107 mmol/L [facility] Gluc Whole Bld 158 65 - 199 mg/dL [facility] Comment:Diabetes: >=200 mg/d L plus symptoms. Lactate WB 1.4 0.5 - 2.2 mmol/L [facility] Blood specimen (specimen) 03/31/2019 4:01 PM EST 03/31/2019 4:01 PM EST Judy Álvarez MD POINT OF CARE T EST ORDERABLES [facility] [place] [address] * Specimen to Pathology (03/31/2019 1:35 PM EST) AP Specimen 03/31/2019 1:35 PM EST 03/31/2019 1:35 PM EST Narrative [facility] - 03/31/2019 1:35 PM EST Specimen requisition ordered. ??Separate Pathology report to follow Judy Álvarez MD PATHOLOGY/CYTOL OGY ORDERABLES [facility] [place] [address] * Surgical Pathology Report (03/31/2019 1:26 PM EST) Final Diagnosis [id number] ? Location: [facility]; [place] [employer]; The signing pathologist has (i) examined the relevant preparation(s) for the specimen(s) and (ii) rendered or confirmed the diagnosis(es). . ?Surgical Pathology DIAGNOSIS Lymph node, left groin lymph node, excision: - Benign lymph node with intraparenchymal and intracapsular black pigment, ? see Discussion. Electronically signed by: ??Jose JUARES, Ángel Khan Verified: ??04/04/2019 ?Dermatopathologis t, Bone & Soft Tissue Pathologist Performed at: ??-[facility] Dept. of Pathology, [place], [place] DISCUSSION This finding could be the [...] Bone & Soft Tissue Pathologist Performed at: ??-[facility] Dept. of Pathology, [place], [place] This intraoperative consultation should be interpreted as a preliminary diagnosis pending review of the entire specimen and special studies, if any. 04/04/2019 3:48 PM EST [facility] LYMPH NODE SPECIMEN / Unknown 03/31/2019 1:26 PM EST 03/31/2019 1:26 PM EST Judy Álvarez MD PATHOLOGY/CYTOL OGY ORDERABLES [facility] [place] [address] * (ABNORMAL) BLOOD GAS 2 ARTERIAL (03/31/2019 1:13 PM EST) pH, Arterial 7.45 7.35 - 7.45 [facility] PCO2, Arterial 32(L) 35 - 45 mmHg [facility] PO2, Arterial 312(H) 85 - 104 mmHg [facility] Bicarbonate, Arterial 21.3 20.0 - 26.0 mmol/L [facility] Base Excess, Arterial -2.7 -3.0 - 3.0 mmol/L [facility] Hgb Blood Gas 11.4(L) 11.7 - 15.5 gm/dL [facility] Oxyhemoglobin, Arterial 98.1(H) 94.0 - 97.0 % [facility] Carboxyhemoglob in, Arterial 0.9 % [facility] Comment: Nonsmokers: 0.5-1.5% COHB Smokers: Variable, but usually less than 10% Toxic: 20-30% COHB Lethal: Greater than 60% COHB Methemoglobin, Arterial 0.3 <=1.5 % [facility] Na Whole Blood 140 135 - 145 mmol/L [facility] K Whole Blood 2.7(Critic al) 3.5 - 5.0 mmol/L [facility] Comment: Noted by instrument maker apprentice. Please note: Patients with WBC >100,000 may have falsely elevated Potassium levels. Contact the Clinical Chemistry Laboratory if there are any questions. ICa Whole Blood 1.04(L) 1.15 - 1.33 mmol/L [facility] Comment: Note: ??Total bilirubin higher than 20 mg/dL may lead to falsely low ionized calcium. CL Whole Blood 112(H) 98 - 107 mmol/L [facility] Gluc Whole Bld 138 65 - 199 mg/dL [facility] Comment:Diabetes: >=200 mg/d L plus symptoms. Lactate WB 0.6 0.5 - 2.2 mmol/L [facility] Blood specimen (specimen) 03/31/2019 1:13 PM EST 03/31/2019 1:13 PM EST Judy Álvarez MD POINT OF CARE T EST ORDERABLES Performing Organization Address [facility] Co de Phone Number [facility] [place] [address] * XR Fluoro No Rad <1Hr - OR Use (03/31/2019 12:11 PM EST) Narrative RAD - 03/31/2019 12:17 PM EST This exam is auto-finalizing. No interpretation was done. Judy Álvarez MD IMG FLUORO ORDBrianna GARCIA Performing Organization Address [facility] Co de Phone Number [place], [place] * ABORH Recheck Status (03/31/2019 10:13 AM EST) ABORH Type Recheck Completed [facility] Blood specimen (specimen) 03/31/2019 10:13 AM EST 03/31/2019 10:16 AM EST Narrative Resulting Agency Comment Spec In Lab Judy Álvarez MD BLOOD BANK LAB ORDERABLES Performing Organization Address City/[facility]/ZIP Co de Phone Number [facility] [address] * Antibody screen (03/31/2019 10:13 AM EST) Ab Screen Interp Negative [facility] Expires at [id number] on: 04/03/2019 [facility] Blood specimen (specimen) 03/31/2019 10:13 AM EST 03/31/2019 10:16 AM EST Narrative Resulting Agency Comment Spec In Lab Judy Álvarez MD BLOOD BANK LAB ORDERABLES Performing Organization Address City/[facility] Co de Phone Number [facility] [place] [address] * ABO/Rh Typing (03/31/2019 10:13 AM EST) ABORH Type A Pos [facility] Blood specimen (specimen) 03/31/2019 10:13 AM EST 03/31/2019 10:16 AM EST Narrative Resulting Agency Comment Spec In Lab Judy Álvarez MD BLOOD BANK LAB ORDERABLES Performing Organization Address City/[facility] Co de Phone Number [facility] [place] [address] documented in this encounter Visit Diagnoses Not [...] heparin (porcine) injection ONCE PRN, Starting on Sun03/31/19 at 1816, Until 04/05/19 at 1741, Intra-Operative [...] 17 g, Oral, DAILY, First dose on 04/05/19 at 1130, Until Discontinued, Routine Given 04/05/2019 [...] Lidia Spangler RN)2325 (Given - Provider: Roxie Barroso, SADAF) 0615 (Given - Provider: Roxie Barroso RN)1125 (Given - Provider: Ade Mak RN) amLODIPine (NORVASC) tablet 10 mg 10 mg, Oral, DAILY, First dose on Sun04/05/19 at 0900, Until Discontinued, Routine 08 (Given - Provider: Mackenzie White RN) aspirin chewable tablet 81 mg 81 mg, Oral, DAILY, First dose on Sun04/05/19 at 0900, Until Discontinued, Routine 08 (Given - Provider: Mackenzie White, SADAF) atorvastatin (LIPITOR) tablet 40 mg 40 mg, Oral, EVERY EVENING, First dose on Sun04/04/19 at 2000, Until Discontinued, Routine 2117 (Given - Provider: Roxie Barroso RN) bisacodyl (DULCOLAX) suppository 10 mg (COMPLETED) 10 mg, Rectal, ONCE, 1 dose, On Sun04/05/19 at 0700, Routine 112 (Given - Provider: Ade Mak RN) heparin [...] and then remove for 12 hours, Routine 09 (Patch Applied - Provider: Lidia Spangler RN) 112 (Patch Applied - Provider: Lidia Spangler RN) [...] Discontinued, Verify nicotine 21 mg/24 hr patch 0900 (Patch (dose and location) verified - Provider: Lidia Spangler RN)2100 (Patch (dose and location) verified - Provider: Claribel Dias RN) 0900 (Patch (dose and location) verified - Provider: Lidia Spangler RN)2100 (Patch (dose and location) verified - Provider: Roxie Barroso RN) 0900 (Patch (dose and location) verified - Provider: Mackenzie White RN) pantoprazole (PROTONIX) injection 40 mg 40 mg, Intravenous, 2 TIMES DAILY, First dose on Sun04/01/19 at 0900, Until Discontinued 921 (Given - Provider: Lidia Spangler RN)2049 (Given - Provider: Claribel Dias RN) 0850 (Given - Provider: Lidia Spangler RN)2116 (Given - Provider: Roxie Barroso, SADAF) 08 (Given - Provider: Mackenzie White, SADAF) polyethylene glycol (MIRALAX) packet 17 g 17 g, Oral, DAILY, First dose on Sun04/05/19 at 1130, Until Discontinued, Routine 1125 (Given - Provider: Ade Mak RN) senna-docusate (PERICOLACE) 8.6-50 mg per tablet 1 tablet 1 tablet, Oral, 2 TIMES DAILY, First dose on Sun04/04/19 at 2100, Until Discontinued, Routine 2117 (Given - Provider: Roxie Barroso RN) 08 (Given - Provider: Mackenzie White, SADAF) Continuous [...] RN) 0255 (New Bag - Provider: Claribel iDas RN)1259 (New Bag - Provider: Carli Finn [...] for maximum of 2 doses, then sierra JUARES., May repeat 10 mg in 15 minutes [...] Lidia Spangler RN)2122 (Given - Provider: Roxie Barroso, SADAF) 0313 (Given - Provider: Roxie Barroso RN) [...] Discontinued documented in this encounter Care Teams Machine Plug Shaper Relationship Specialty Start Date End Date Beena Wilkes, NCR OPERATOR [address] [place] [address] PCP - General Family Medicine 01/13/19 03/02/22 documented as of this encounter
--- OUTSIDE RECORDS SUMMARY | 2024-03-25 13:05 | XMS_ITS | Encounter Summary ---
Author Organization [facility] Address [facility] [place] [address] Care Team Providers Care Flat Spring Assembler Name Role Phone Beena Wilkes APRN Primary Care Provider [phone] Reason for Visit * Auth/Cert Specialty Diagnoses / Procedures Referred By Contac t Referred To Contact Diagnoses PAD (peripheral artery disease) PAD n/a Procedures PRO BYPASS GRAFT OTHR, AORTOBIFEMORAL @BYPASS GRAFT, AORTOBIFEMORAL W\ SYNTHETIC CONDUIT (WRVU 32.98) Referral ID Status Reason Start Date Expiration Date Visits Re quested Visits Authorized [id number] 1 1 Encounter Details Date Type Department Care Team (Latest Contact Info) Description 03/31/2019 9:52 AM EST - 04/05/2019 3:36 PM [facility] Hospital Encounter [address] [place] [address] Judy Álvarez MD [facility] [place] [address] Tobacco abuse; Aortoiliac occlusive disease Discharge Disposition: [...] developed recurrent LLE claudication with decline in SAH from 0.9to 0.5. CTA demonstrated chronic total [...] AM Darlin Mendez [place] Vascular Lab at [facility] Arrive at: Demand Generation Manager Area [phone] 05/06/2019 8:30 AM Rashawn Dawn MD Vascular Surgery at [facility] Arrive at: Demand Generation Manager Area [phone] Future Orders Complete By Expires SHA, legs, multiple levels [VAS8 Custom] 05/05/2019 11/04/2019 Process Instructions: There is no in-house vascular bean sprout laborer available on weeknights (5pm-8am), weekends, or holidays. IF THIS IS A REQUEST FOR AN EMERGENT STUDY DURING THOSE HOURS, please have the senior provider responsible for the patient page the Vascular Surgery Fellow/Senior Resident hematology oncology consultant to discuss options. Scheduling Instructions: Questions: Indication for study/signs & symptoms: s/p aortobifemoral bypass Question to be answered: lower extremity flow Preferred location?: [facility] Arterial Duplex, Bilat Legs [VAS3 Custom] 05/05/2019 (Approximate) 11/04/2019 Process Instructions: There is no in-house vascular bean sprout laborer available on weeknights (5pm-8am), weekends, or holidays. IF THIS IS A REQUEST FOR AN EMERGENT STUDY DURING THOSE HOURS, please have the senior provider responsible for the patient page the Vascular Surgery Fellow/Senior Resident hematology oncology consultant to discuss options. Scheduling Instructions: Questions: Indication [...] For any problems or questions please call [phone] TOR Broussard, sales/marketing Nurse Clinician For issues on weeknights after 5pm and weekends please call [phone] and ask for the Vascular Fellow hematology oncology consultant. Heron Bailey MD 04/05/2019 documented in this [...] For any problems or questions please call [phone] TOR Broussard, sales/marketing Nurse Clinician For issues on weeknights after 5pm and weekends please call [phone] and ask for the Vascular Fellow hematology oncology consultant. documented in this encounter Medications at Time [...] of nutrition support. Monie Saini DTR Pager [phone] * Laura Quiros APRN - 04/04/2019 8:22 [...] Narrative:Visited to introduce and assess acceptance of Chief Technician services. Pt was not available for visit [...] year. 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 Pt [...] encounter: 44.3 kg (97 lb 10.6 oz). Melvin Body Weight:42.9- 47.7 kg Usual Body Weight: [...] sent. Hand off report to RN * Lizandro Zazueta RN - 03/31/2019 6:36 PM EST [...] file Gets together: Not on file Attends synagogue service: Not on file Active member of [...] MD, MS Vascular surgery fellow Service pager [phone] documented in this encounter Miscellaneous Notes * [...] no PT needs. Time IN / OUT: 1555-1375 Total Evaluation Minutes, Physical Therapy: 20(1 TA) Oskar Carney DPKika Pager: [phone] Physical Therapy Inpatient Rehabilitation Department * Plan [...] e-cigarette ( X) Cigarettes Brand currently smoking: [place] lights[employer]generics Current amount: 0.25 ppd Age initiated: [...] in places where it is forbidden ex [facility] No Yes 0 3. Which [...] at home. She has recently applied for [place] Medicaid. I reviewed the resources available through the [place] quit line and she has consented to [...] She has also been provided with a [facility] Smoking Cessation packet and the contents have been reviewed with her. She has my card with my contact information and has been encouraged to call if she has additional q uestions or concerns. Referral to [place] quitline placed. The patient has been encouraged to follow-up with PCP and/or the outpatient Tobacco Turner Machine, Fanny Gibbs APRN, and GEOFFREY Colon, in 3K clinic. Buck Watts, MSN, RN-BC, NCTTP Tobacco Manual Lathe Machinist [facility] Pager #[phone] * Plan of Care - Oskar Carney [...] 32.98) performed by Judy Álvarez MD at [facility] MA[facility] OR ??? PRO PLACE INTRAVASCULAR STENT OPEN/PERCUTAN 1ST ARTERY N/A 03/05/2018 TRANSCATH PLACEMENT INTRAVASCULAR STENT, OPN/PERQ, INITIAL ARTERY, S&I (WRVU 9) performed by Yves Vegas MD at [facility] MA[facility] OR ? ? PRO REVSC OPEN/PERCUTANEOUS ILIAC ART W STNT & ANGIOP IPSI VSL Bilateral 03/05/2018 REVSC OPN\PRQ ILIAC ART W\STNT & ANGIOP EA IPSILATERAL VSL-ALEX (WRVU 4.25) performed by Yves Vegas MD at [facility] MA[facility] OR ? ? PRO REVSC OPEN/PERCUTANEOUS ILIAC ART W STNT PLMT&ANGIO PRECIOUS VSL UNILAT Bilateral 03/05/2018 REVSC OPN\PRQ ILIAC ART W\STNT PLMT & ANGIOP SAME VSL BILAT (WRVU 10) performed by Yves Vegas MD at [facility] OR Social History: Pt lives alone but has boyfriend who comes over several times a week and has supportive family as well. 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 Is normally indep but was having [...] outlinedin this evaluation. Time IN / OUT: 1306-7873 Total Evaluation Minutes, Physical Therapy: 24(Eval) Oskar Carney, PT Pager: [phone] Physical Therapy Inpatient Rehabilitation Department * Plan [...] given this morning. Adequate urine output. Increased FRUIT PRESERVER x2 today per APS. 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 Social & Family Supports/Community [...] Other: Has applied for financial assistance from [facility]. Also now qualifies for food stamps and fuel assistance. Primary Care Provider: Beena Wilkes APRN [phone] Patient/Caregiver Goals of Treatment: to return home [...] unavailable for both attempts. I left the [facility] Tobacco Treatment at the bedside. I will be out of hospital tomorrow and willfollow-up with patient on , the . Buck Watts, MSN, RN-[facility] Tobacco Manual Lathe Machinist [facility] Pager #[phone] * Plan of Care - Jenna Licea [...] Vasquez MD - 03/31/2019 7:00 PM EST [facility] Operative Note Patient Name: Walker Farmer : [id number] MR#: [id number] Case Date: 03/31/2019 Surgeon: Surgeon(s) and Role: [...] PATHOLOGY Left Groin Lymph Node OR 15 37357 PAD Left Groin Lymph Node excision YES, [...] Implant Name Type Inv. Item Serial No. Respiratory Therapist Assistant Lot No. LRB No. Used Action GRAFT,HMGD,KNT,BIFUR,[id number] ([id number]) - [id number] IMPLANTS GRAFT,HMGD,KNT,BIFUR,[id number] ([id number]) [id number] [facility] [id number] N/A 1 Implanted Infection Bundle [...] AM EST Tech Visit Vascular Lab at [facility] [place] [phone] MadiJose Jorge 04/04/2024 11:00 AM EST Office [place] [phone] Ayla Davis, SHER[facility] [place] [place] [address] documented as of this encounter Procedures Procedure [...] 12:11 PM EST Bypass Graft Othr, Aortobifemoral ([id number]) 03/31/2019 12:10 PM EST PAD BYPASS GRAFT, [...] Text Report Department: Vascular Surgery Lab Patient: [id number] (WALKER FARMER) CPT: 45896 ICD10: Z48.812;I74.09;I 73.9 Referring Physician: JUDY ÁLVAREZ [...] 6:15 AM EST) Neutrophil % 64.9 % [facility] Neutrophil Absolute 3.94 1.70 - 6.10 x10(3)/[facility] LABORAT[facility] Lymph % 23.7 % [facility] Lymphocytes Abs 1.4 0.9 - 3.2 x10(3)/[facility] LABORATORY Monocyte % 8.1 % [facility] Monocyte Abs 0.5 0.3 - 0.9 x10(3)/[facility] LABORATORY Eos % 2.8 % [facility] Eosinophils Abs 0.2 0.0 - 0.4 x10(3)/[facility] LABORATORY Basophil % 0.3 % [facility] Baso Absolute 0.0 0.0 - 0.1 x10(3)/[facility] LABORATORY Immature Gran % 0.20 % [facility] Comment: Immature granulocytes(IG's)percentage and absolute count will include metamyelocytes, myelocytes, and promyelocytes. Blood smears from CBCs yielding IG's will be scanned manually for concordance. If this scan disagrees with the automated IG or if promyelocytes are noted, a manual differential will be performed. Immature Gran Absolute 0.01 0.00 - 0.04 x10(3)/[facility] LABORATORY Blood specimen (specimen) 04/04/2019 6:15 AM EST 04/04/2019 6:30 AM EST Narrative Resulting Agency Comment Spec In Lab Heron Bailey MD HEMATOLOGY ORDERABLE S Performing Organization Address City/State/[facility] Co de Phone Number [facility] [place] [address] * (ABNORMAL) Hemogram (04/04/2019 6:15 AM EST) [...] [facility] NRBC% auto 0.0 % [facility] NRBC Absolute 0.000 0.000 - 0.000 x10(3)/mc L [facility] Blood specimen (specimen) 04/04/2019 6:15 AM EST 04/04/2019 6:30 AM EST Narrative Resulting Agency Comment Spec In Lab Heron Bailey MD HEMATOLOGY ORDERABLE S Performing Organization Address City/[facility]/ZIP Co de Phone Number [facility] [place] [address] * (ABNORMAL) Phosphorus (04/04/2019 6:15 AM EST) Phosphorus 2.2(L) 2.5 - 4.5 mg/dL [facility] Blood specimen (specimen) 04/04/2019 6:15 AM EST 04/04/2019 6:30 AM EST Narrative Resulting Agency Comment Spec In Lab Judy Álvarez MD CHEMISTRY ORDER ZAINA Performing Organization Address [facility] Co de Phone Number [facility] [place] [address] * Magnesium (04/04/2019 6:15 AM EST) Magnesium 0.81 0.69 - 1.07 mmol/L [facility] Blood specimen (specimen) 04/04/2019 6:15 AM EST 04/04/2019 6:30 AM EST Narrative Resulting Agency Comment Spec In Lab Judy Álvarez MD CHEMISTRY ORDER ZAINA Performing Organization Address [facility] Co de Phone Number [facility] [place] [address] * (ABNORMAL) Basic Metabolic Panel (non-fasting) (04/04/2019 [...] of body mass or the acutely ill. [email or web address]/[facility] eGFR 140 >=60 mL/min/1. 73 m?? [facility] Comment: The eGFR was calculated using the CKD-EPI equation. As with all creatinine based estimates of kidney function, eGFR values calculated with the CKD-EPI equation are not accurate in patients with acute kidney failure, extremes of body mass or the acutely ill. [email or web address]/[facility]kf Blood specimen (specimen) 04/04/2019 6:15 AM EST 04/04/2019 6:30 AM EST Narrative Resulting Agency Comment Spec In Lab Judy Álvarez MD CHEMISTRY ORDER ZAINA [facility] [place] [address] * XR Abdomen 1 view (Generic) (04/02/2019 [...] below. Electronically signed by: Evelyn Espinoza [facility] [place] ([phone]),at 04/02/2019 7:58 AM Judy Álvarez MD IMG DX ORDERABL ES * Phosphorus (04/01/2019 7:41 PM EST) Phosphorus 2.5 2.5 - 4.5 mg/dL [facility] Blood specimen (specimen) 04/01/2019 7:41 PM EST 04/01/2019 7:46 PM EST Narrative Resulting Agency Comment Spec In Lab Judy Álvarez MD CHEMISTRY ORDER ZAINA [facility] [place] [address] * Magnesium (04/01/2019 7:41 PM EST) Pathologist [facility] Magnesium 0.78 0.69 - 1.07 mmol/L [facility] Blood specimen (specimen) 04/01/2019 7:41 PM EST 04/01/2019 7:46 PM EST Narrative Resulting Agency Comment Spec In Lab Judy Álvarez MD CHEMISTRY ORDER ZAINA Performing Organization Address [facility] Co de Phone Number [facility] [place] [address] * (ABNORMAL) Basic Metabolic Panel (non-fasting) (04/01/2019 7:41 PM EST) Pathologist [facility] Glucose 145 65 - 199 mg/dL [facility] [...] of body mass or the acutely ill. http://[email or web address]/[facility]kf eGFR 128 >=60 mL/min/1. 73 m?? [facility] Comment: The eGFR was calculated using the CKD-EPI equation. As with all creatinine based estimates of kidney function, eGFR values calculated with the CKD-EPI equation are not accurate in patients with acute kidney failure, extremes of body mass or the acutely ill. [email or web address] Blood specimen (specimen) 04/01/2019 7:41 PM EST 04/01/2019 7:46 PM EST Narrative Resulting Agency Comment Spec In Lab Judy Álvarez MD CHEMISTRY ORDER ZAINA Performing Organization Address City/[facility]/ZIP Co de Phone Number [facility] [place] [address] * (ABNORMAL) Hemoglobin and Hematocrit, blood (04/01/2019 5:24 AM EST) Hemoglobin 10.9(L) 11.7 - 15.5 gm/dL [facility] Hematocrit 32.4(L) 35.7 - 45.8 % [facility] Blood specimen (specimen) 04/01/2019 5:24 AM EST 04/01/2019 5:52 AM EST Narrative Resulting Agency Comment Spec In Lab Judy Álvarez MD HEMATOLOGY ORDE RABLES Performing Organization Address City/[facility]/ZIP Co de Phone Number [facility] [place] [address] * (ABNORMAL) Basic Metabolic Panel (non-fasting) (04/01/2019 [...] of body mass or the acutely ill. [email or web address]://[email or web address]/[facility]kf eGFR 122 >=60 mL/min/1. 73 m?? [facility] Comment: The eGFR was calculated using the CKD-EPI equation. As with all creatinine based estimates of kidney function, eGFR values calculated with the CKD-EPI equation are not accurate in patients with acute kidney failure, extremes of body mass or the acutely ill. [email or web address]://Netzoptiker/[facility]AL[facility]kf Blood specimen (specimen) 04/01/2019 5:24 AM EST 04/01/2019 5:52 AM EST Narrative Resulting Agency Comment Spec In Lab Judy Álvarez MD CHEMISTRY ORDER ZAINA [facility] [place] [address] * (ABNORMAL) Hemogram (03/31/2019 10:02 PM EST) [...] HOSPITAL LABORATORY Platelet 254 145 - 357 x10(3)/[facility] LABORATORY RDW Standard Deviation 45.9 37.0 - 46.0 [facility] LABORATORY RDW coefficient of variation 13.1 11.5 - 14.1 % [facility] Mean Platelet Volume 9.7 7.6 - 12.9 fL [facility] NRBC% auto 0.0 % [facility] NRBC Absolute 0.000 0.000 - 0.000 x10(3)/[facility] LABORATORY Blood specimen (specimen) 03/31/2019 10:02 PM EST 03/31/2019 10:06 PM EST Narrative Resulting Agency Comment Spec In Lab Judy Álvarez MD HEMATOLOGY HALEY GARCIA [facility] [place] [address] * (ABNORMAL) BMP w/fasting Glucose (03/31/2019 6:44 [...] of Diabetes Mellitus, Position Statement from the [place] Diabetes Association. ??Diabetes Care, Volume 33, Supplement [...] of body mass or the acutely ill. [email or web address]://[email or web address] eGFR 127 >=60 mL/min/1. 73 m?? [facility] Comment: The eGFR was calculated using the CKD-EPI equation. As with all creatinine based estimates of kidney function, eGFR values calculated with the CKD-EPI equation are not accurate in patients with acute kidney failure, extremes of body mass or the acutely ill. http://Netzoptiker/[facility]ALOnkf Blood specimen (specimen) 03/31/2019 6:44 PM EST 03/31/2019 6:55 PM EST Narrative Resulting Agency Comment Spec In Lab Judy Álvarez MD CHEMISTRY ORDER ZAINA Performing Organization Address City/[facility]/ZIP Co de Phone Number [facility] [place] [address] * Lactate, whole blood, send to lab ([facility]) (03/31/2019 6:44 PM EST) Pathologist [facility] Lactate WB 0.8 0.5 - 2.2 mmol/L [facility] Blood specimen (specimen) 03/31/2019 6:44 PM EST 03/31/2019 6:55 PM EST Narrative Resulting Agency Comment Spec In Lab Judy Álvarez MD CHEMISTRY ORDER ZAINA Performing Organization Address City/[facility]/ZIP Co de Phone Number [facility] [place] [address] * (ABNORMAL) Hemogram (03/31/2019 6:44 PM EST) [...] Standard Deviation 45.4 37.0 - 46.0 fL [facility] RDW coefficient of variation 13.0 11.5 - 14.1 % [facility] Mean Platelet Volume 9.6 7.6 - 12.9 fL [facility] NRBC% auto 0.0 % [facility] NRBC Absolute 0.000 0.000 - 0.000 x10(3)/mc L [facility] Blood specimen (specimen) 03/31/2019 6:44 PM EST 03/31/2019 6:55 PM EST Narrative Resulting Agency Comment Spec In Lab Judy Álvarez MD HEMATOLOGY HALEY GARCIA Performing Organization Address City/State/[facility] Co de Phone Number [facility] [place] [address] * (ABNORMAL) BLOOD GAS 2 ARTERIAL (03/31/2019 [...] CARE T EST ORDERABLES Performing Organization Address City/State/[facility] Co de Phone Number [facility] [place] [address] * (ABNORMAL) Differential, Automated (03/31/2019 4:30 PM EST) Neutrophil % 77.1 % [facility] Neutrophil Absolute 13.23(H) 1.70 - 6.10 x10(3)/mc L [facility] Lymph % 17.6 % [facility] Lymphocytes Abs 3.0 0.9 - 3.2 x10(3)/mc L [facility] Monocyte % 4.1 % [facility] Monocyte Abs 0.7 0.3 - 0.9 x10(3)/mc L [facility] Eos % 0.3 % [facility] Eosinophils Abs 0.1 0.0 - 0.4 x10(3)/[facility] LABORATORY Basophil % 0.4 % [facility] Baso Absolute 0.1 0.0 - 0.1 x10(3)/[facility] LABORATORY Immature Gran % 0.50 % [facility] Comment: Immature granulocytes(IG's)percentage and absolute count will include metamyelocytes, myelocytes, and promyelocytes. Blood smears from CBCs yielding IG's will be scanned manually for concordance. If this scan disagrees with the automated IG or if promyelocytes are noted, a manual differential will be performed. Immature Gran Absolute 0.09(H) 0.00 - 0.04 x10(3)/[facility] LABORATORY Blood specimen (specimen) 03/31/2019 4:30 PM EST 03/31/2019 4:32 PM EST Narrative Resulting Agency Comment Spec In Lab Rosita Ayala MD HEMATOLOGY ORDERABLE S Performing Organization Address City/State/[facility] Co de Phone Number [facility] [place] [address] * (ABNORMAL) Hemogram (03/31/2019 4:30 PM EST) White Blood Cell 17.2(H) 4.0 - 9.5 x10(3)/[facility] LABORATORY Red Blood Cell 3.46(L) 4.00 - 5.21 x10(6)/[facility] LABORATORY Hemoglobin 11.1(L) 11.7 - 15.5 gm/dL [...] [facility] NRBC% auto 0.0 % [facility] NRBC Absolute 0.000 0.000 - 0.000 x10(3)/mc L [facility] Blood specimen (specimen) 03/31/2019 4:30 PM EST 03/31/2019 4:32 PM EST Narrative Resulting Agency Comment Spec In Lab Rosita Ayala MD HEMATOLOGY ORDERABLE S Performing Organization Address [facility]/ZIP Co de Phone Number [facility] [place] [address] * Fibrinogen (03/31/2019 4:30 PM EST) Fibrinogen 209 200 - 393 mg/dL [facility] Comment: A fibrinogen level >100 mg/dL is adequate for hemostasis in most patients without underlying bleeding disorders. Blood specimen (specimen) 03/31/2019 4:30 PM EST 03/31/2019 4:32 PM EST Narrative Resulting Agency Comment Spec In Lab Judy Álvarez MD HEMATOLOGY ORDE RADHA [facility] [place] [address] * (ABNORMAL) APTT (03/31/2019 4:30 PM EST) [...] MD HEMATOLOGY HALEY GARCIA Performing Organization Address [facility] de Phone Number [facility] [place] [address] * (ABNORMAL) Prothrombin Time (03/31/2019 4:30 PM [...] MD HEMATOLOGY HALEY GARCIA Performing Organization Address [facility] Co de Phone Number [facility] [place] [address] * (ABNORMAL) BLOOD GAS 2 ARTERIAL (03/31/2019 [...] EST ORDERABLES [facility] [place] [address] * Specimen to Pathology (03/31/2019 1:35 PM EST) AP Specimen 03/31/2019 1:35 PM EST 03/31/2019 1:35 PM EST Narrative [facility] - 03/31/2019 1:35 PM EST Specimen requisition ordered. ??Separate Pathology report to follow Judy Álvarez MD PATHOLOGY/CYTOL OGY ORDERABLES [facility] [place] [address] * Surgical Pathology Report (03/31/2019 1:26 PM EST) Final Diagnosis [id number] ? Location: [facility]; [facility]; The signing pathologist has (i) examined the relevant preparation(s) for the specimen(s) and (ii) rendered or confirmed the diagnosis(es). . ?Surgical Pathology DIAGNOSIS Lymph node, left groin lymph node, excision: - Benign lymph node with intraparenchymal and intracapsular black pigment, ? see Discussion. Electronically signed by: ??Jose JUARES, Ángel Khan Verified: ??04/04/2019 ?Dermatopathologis t, Bone & Soft Tissue Pathologist Performed at: ??-[facility] Dept. of Pathology, [place], [place] DISCUSSION This finding could be the [...] Bone & Soft Tissue Pathologist Performed at: ??-[facility] Dept. of Pathology, [place], [place] This intraoperative consultation should be interpreted as a preliminary diagnosis pending review of the entire specimen and special studies, if any. 04/04/2019 3:48 PM EST [facility] LYMPH NODE SPECIMEN / Unknown 03/31/2019 1:26 PM EST 03/31/2019 1:26 PM EST Judy Álvarez MD PATHOLOGY/CYTOL OGY ORDERABLES Performing Organization Address City/State/[facility] Co de Phone Number [facility] [place] [address] * (ABNORMAL) BLOOD GAS 2 ARTERIAL (03/31/2019 [...] [facility] Comment: Noted by musical instrument maker. Please note: Patients with WBC >100,000 may [...] CARE T EST ORDERABLES Performing Organization Address [facility] de Phone Number [facility] [place] [address] * XR Fluoro No Rad <1Hr - OR Use (03/31/2019 12:11 PM EST) Narrative RAD - 03/31/2019 12:17 PM EST This exam is auto-finalizing. No interpretation was done. Judy Álvarez MD IMG FLUORO ORDE RABLES Performing Organization Address [facility] Co de Phone Number [place], [place] * ABORH Recheck Status (03/31/2019 10:13 AM EST) ABORH Type Recheck Completed [facility] Blood specimen (specimen) 03/31/2019 10:13 AM EST 03/31/2019 10:16 AM EST Narrative Resulting Agency Comment Spec In Lab Judy Álvarez MD BLOOD BANK LAB ORDERABLES Performing Organization Address City/[facility]/ZIP Co de Phone Number [facility] [place] [address] * Antibody screen (03/31/2019 10:13 AM EST) Ab Screen Interp Negative [facility] Expires at [id number] on: 04/03/2019 [facility] Blood specimen (specimen) 03/31/2019 10:13 AM EST 03/31/2019 10:16 AM EST Narrative Resulting Agency Comment Spec In Lab Judy Álvarez MD BLOOD BANK LAB ORDERABLES Performing Organization Address City/[facility] Co de Phone Number [facility] [place] [address] * ABO/Rh Typing (03/31/2019 10:13 AM EST) ABORH Type A Pos [facility] Blood specimen (specimen) 03/31/2019 10:13 AM EST 03/31/2019 10:16 AM EST Narrative Resulting Agency Comment Spec In Lab Judy Álvarez MD BLOOD BANK LAB ORDERABLES Performing Organization Address City/[facility] Co de Phone Number [facility] [place] [address] documented in this encounter Visit Diagnoses Diagnosis [...] Sun03/31/19 at 1901, Until Sun03/31/19 at 1904, LIZANDRO ZAZUETA (FLEX): cabinet override labetalol (NORMODYNE,TRANDATE) injection [...] mEq/100 mL dose over 60 minutes. New Bag 04/01/2019 1:34 AM EST 10 mEq 100 mL/hr Bag 04/01/2019 12:11 AM EST 10 mEq 100 mL/hr potassium chloride 10 mEq in 100 mL 10 mEq, Intravenous, EVERY 2 HOURS, 2 doses, First dose (after last modification) on Sun04/01/19 at 0815, Last dose on Sun04/01/19 at 1015, Administer over 60 Minutes, Warning Vesicant/Irritant Medication New Bag 04/01/2019 11:18 AM EST 10 mEq 100 mL/hr New Bag 04/01/2019 9:06 AM EST 10 mEq 100 [...] RN)2116 (Given - Provider: Roxie Barroso RN) 0819 (Given - Provider: Mackenzie White RN) polyethylene [...] Medication 0031 (New Bag - Provider: Rosina Mota, SADAF)0555 (New Bag - Provider: Rosina Mota RN)1616 (New Bag - Provider: Lidia Spangler RN) 0255 (New Bag - Provider: Claribel Dias, SADAF)1259 (New Bag - Provider: Carli Finn RN) [...] achieved, Routine 2325 (Given - Provider: Roxie Barroso, SADAF) nalbuphine (NUBAIN) 10 mg/mL injection 2 mg [...] Discontinued documented in this encounter Care Teams Flat Spring Assembler Relationship Specialty Start Date End Date Beena Wilkes APRN [address] [place] [address] PCP - General Family Medicine 01/13/19 03/02/22 documented as of this encounter
--- OUTSIDE RECORDS SUMMARY | 2024-03-25 13:05 | XMS_ITS | Encounter Summary ---
Author Organization [facility] Address [facility] [place] [address] Care Team Providers Care White Sugar Pan Tank Operator Name Role Phone Beena Wilkes APRN Primary Care Provider [phone] Encounter Details Date Type Department Care Team (Late st Contact Info) Description 03/10/2019 [place] [phone] Rashawn Dawn MD [facility] [place] [address] Social History Tobacco Use Types Packs/Day Years [...] AM EST Tech [place] [address] Jose Barraza 04/04/2024 11:00 AM EST Office [place] [address] Ayla Davis APRN [facility] [place] [address] documented as of this encounter Visit Diagnoses Not on filedocumented in this encounter Care Teams White Sugar Pan Tank Operator Relationship Specialty Start Date End Date Beena Wilkes APRN [address] [place] [address] PCP - General Family Medicine 01/13/19 03/02/22 documented as of this encounter
--- OUTSIDE RECORDS SUMMARY | 2024-03-25 13:06 | XMS_ITS | Encounter Summary ---
Author Organization [facility] Address [facility] [place] [address] Care Team Providers Care Clay Puddler Name Role Phone Beena Wilkes APRN Primary Care Provider [phone] Encounter Details Date Type Department Care Team (Late st Contact Info) Description 01/17/2019 3:00 PM EDT Office [place] [phone] Judy Gilbert MD [facility] [place] [address] PVD (peripheral vascular disease) with claudication Social [...] claudication I73.9 ??? History of renal stent [id number] ??? Hypertension I10 ??? Aortoiliac occlusive disease [...] AM EST Tech [place] [address] Jose Barraza 04/04/2024 11:00 AM EST Office [place] [address] Ayla Davis, SHEREE [facility] [place] [address] documented as of this encounter Visit Diagnoses Diagnosis PVD (peripheral vascular disease) with claudication Peripheral vascular disease, unspecified documented in this encounter Care Teams Clay Puddler Relationship Specialty Start Date End Date Beena Wilkes APRN [address] [place] [address] PCP - General Family Medicine 01/13/19 03/02/22 documented as of this encounter
--- OUTSIDE RECORDS SUMMARY | 2024-03-25 13:06 | XMS_ITS | Encounter Summary ---
Author Organization [facility] Address [facility] [place] [address] Care Team Providers Care Executor Of Estate Name Role Phone None Primary Care Provider Unavailabl e Reason for Referral * Diagnostic Test (Routine) - Closed Specialty Diagnoses / Procedures Referred By Contwilberto t Referred To Contact Radiology Diagnoses PVD (peripheral vascular disease) with claudication Procedures CT Angiogram Aorta Lower Extremity Runoff Laura Quiros APRN [facility] [place] [address] [facility] [place] [address] Referral ID Status Reason Start Date Expiration Date V isits Requested Visits Authorized [id number] Closed Specialty Service Requested 12/03/2018 12/03/2019 1 1 Encounter Details Date Type Department Care Team (Late st Contact Info) Description 12/03/2018 9:00 AM EDT Office [place] [address] Laura Quiros APRN [facility] [place] [address] PVD (peripheral vascular disease) with [...] this encounter Progress Notes * Laura Quiros, FINDING FASTENER - 12/03/2018 9:00 AM EDT Reason for Visit:F/u SHA's HPI: 53F??former??smoker??(quit Dec, 2017)??with hypertension, right renal artery stenosis sp angioplasty [id number], and short distance bilateral buttocks and thigh claudication related to aortoiliac disaese. Pt reports cramping pain in her thighs, right worse than left after walking 50 feet. 53F??former??smoker??(quit Dec, 2017)??with hypertension, right renal artery stenosis sp angioplasty [id number], and short distance bilateral buttocks and thigh [...] claudication I73.9 ??? History of renal stent [id number] ??? Hypertension I10 ??? Aortoiliac occlusive disease [...] claudication I73.9 ??? History of renal stent [id number] ??? Hypertension I10 ??? Aortoiliac occlusive disease [...] ND, no palpable pulsatile masses Extremity - [place], warm, no ulceration, brisk capillary refill, no [...] Jaimes. Will need CTA Encouraged her to order picker/assembler ASA 81mg today and resume taking and [...] st Contact Info) Description 04/04/2024 10:30 AM [employer] Tech [place] [address] Joes Barraza 04/04/2024 11:00 AM EST Office [place] [address] Ayla Davis APRN [facility] [place] [address] documented as of this encounter Results * [...] please contact the number below. ? Narrative 01/17/2019 4:21 PM EDT EXAMINATION: CT [...] was performed following intravenous administration of contrast. Vytwddnekyph690.0 ml of OMNIPAQUE 350.00 mg/ml. MPRs were [...] contact the number below. Laura Quiros APRN [facility] ORDERABLES * (ABNORMAL) Creatinine (01/17/2019 11:45 AM EDT) Creatinine 0.61(L) 0.70 - 1.20 mg/dL [facility] Est Glomerular Filtration Rate 104 >=60 mL/min/1.7 3 m?? [facility] Comment: The eGFR was calculated using the CKD-EPI equation. As with all creatinine based estimates of kidney function, eGFR values calculated with the CKD-EPI equation are not accurate in patients with acute kidney failure, extremes of body mass or the acutely ill. http://[employer]/[facility]ROWnkf eGFR 120 >=60 mL/min/1.7 3 m?? [facility] Comment: The eGFR was calculated using the CKD-EPI equation. As with all creatinine based estimates of kidney function, eGFR values calculated with the CKD-EPI equation are not accurate in patients with acute kidney failure, extremes of body mass or the acutely ill. http://[employer]/[facility] Blood specimen (specimen) 01/17/2019 11:45 AM EDT 01/17/2019 11:50 AM EDT Narrative Resulting Agency Comment Spec In Lab Laura Quiros APRN CHEMISTRY ORDERABL ES [facility] [place] [address] documented in this encounter Visit Diagnoses Diagnosis PVD (peripheral vascular disease) with claudication Peripheral vascular disease, unspecified PVD (peripheral vascular disease) with claudication Peripheral vascular disease, unspecified documented in this encounter Care Teams Executor Of Estate Relationship Specialty Start Date End Date None None PCP - General 12/03/18 01/12/19 documented as of this encounter
--- OUTSIDE RECORDS SUMMARY | 2024-03-25 13:06 | XMS_ITS | Encounter Summary ---
Author Organization [facility] Address [facility] [place] [address] Care Team Providers Care Slip Dumper Name Role Phone Saundra Reddy APRN Primary Care Provider [phone] Encounter Details Date Type Department Care Team (Late st Contact Info) Description 01/22/2018 Orders [place] [address] Iris Farmer RN Intermittent claudication Social History Tobacco Use [...] AM EST Tech [place] [address] Jose Barraza 04/04/2024 11:00 AM EST Office [place] [address] Ayla Davis APRN [facility] [place] [address] documented as of this encounter Visit Diagnoses Diagnosis Intermittent claudication Peripheral vascular disease, unspecified documented in this encounter Care Teams Slip Dumper Relationship Specialty Start Date End Date Saundra Reddy APRN PCP - General Family Medicine 01/02/18 12/02/18 documented as of this encounter
--- OUTSIDE RECORDS SUMMARY | 2024-03-25 13:06 | XMS_ITS | Encounter Summary ---
Author Organization [facility] Address [facility] [place] [address] Care Team Providers Care Healthcare Interpreter Name Role Phone KyleBeena cline SHEREE Primary Care Provider [phone] Encounter Details Date Type Department Care Team (Latest Contact Info) Description 01/28/2019 10:20 AM EDT Laboratory [place] [phone] PAD (peripheral artery disease) Social History Tobacco [...] AM EST Tech Visit [place] [address] Jose Barraza 04/04/2024 11:00 AM EST Office [place] [phone] Ayla Davis APRN [facility] [place] [place] [address] documented as of this encounter Procedures Procedure [...] PAD (peripheral artery disease) BASIC METABOLIC PANEL Routine 01/28/2019 11:11 AM EDT PAD (peripheral artery disease) documented in this encounter Results * ABORH Recheck Status (01/28/2019 11:11 AM EDT) ABORH Type Recheck Completed [facility] Blood specimen (specimen) 01/28/2019 11:11 AM EDT 01/28/2019 11:33 AM EDT Narrative Resulting Agency Comment Spec In Lab Judy Gilbert MD BLOOD BANK LAB ORDERABLES [facility] [place] [address] * Antibody screen (01/28/2019 11:11 AM EDT) Ab Screen Interp Negative [facility] Expires at [id number] on: 03/14/2019 [facility] Comment: Corrected from 03/10/19 0:00:00 EDT [Unknown] on 03/03/19 16:10:06 EDT by Imani Villa Blood specimen (specimen) 01/28/2019 11:11 AM EDT 01/28/2019 11:33 AM EDT Narrative Resulting Agency Comment Spec In Lab Judy Gilbert MD BLOOD BANK LAB ORDERABLES [facility] [place] [address] * ABO/Rh Typing (01/28/2019 11:11 AM EDT) ABORH Type A Pos [facility] Blood specimen (specimen) 01/28/2019 11:11 AM EDT 01/28/2019 11:33 AM EDT Narrative Resulting Agency Comment Spec In Lab Judy Gilbert MD BLOOD BANK LAB ORDERABLES Performing Organization Address City/[facility] Co de Phone Number [facility] [place] [address] * (ABNORMAL) Hemogram (01/28/2019 11:11 AM EDT) [facility] White Blood Cell 6.6 4.0 - 9.5 x10(3)/mc L [facility] Red Blood Cell 4.16 4.00 - 5.21 x10(6)/mc L [facility] Hemoglobin 13.3 11.7 - 15.5 gm/dL [facility] Hematocrit 40.4 35.7 - 45.8 % [facility] Mean Cell Volume 97.1(H) 82.6 - 94.4 fL [facility] Mean Cell Hemoglobin 32.0 27.1 - 32.0 pg [facility] Mean Cell Hemoglobin Concentration 32.9 31.7 - 35.0 gm/dL [facility] Platelet 287 145 - 357 x10(3)/mc L [facility] RDW Standard Deviation 44.3 37.0 - 46.0 [facility] RDW coefficient of variation 12.3 11.5 - 14.1 % [facility] Mean Platelet Volume 10.0 7.6 - 12.9 fL [facility] NRBC% auto 0.0 % [facility] NRBC Absolute 0.000 0.000 - 0.000 x10(3)/mc L [facility] Blood specimen (specimen) 01/28/2019 11:11 AM EDT 01/28/2019 11:40 AM EDT Narrative Resulting Agency Comment Spec In Lab Judy Gilbert MD HEMATOLOGY HALEY GARCIA [facility] [place] [address] * (ABNORMAL) Basic Metabolic Panel (non-fasting) (01/28/2019 11:11 AM EDT) Glucose 120 65 - 199 mg/dL [facility] Comment:Diabetes: >=200 mg/d L plus symptoms Blood Urea Nitrogen 12 8 - 18 mg/dL [facility] Creatinine 0.53(L) 0.70 - 1.20 mg/dL [facility] Sodium 139 135 - 145 mmol/L [facility] Potassium 4.4 3.5 - 5.0 mmol/L [facility] Comment: Please note: ??Patients with WBC >100,000 may have falsely elevated Potassium levels. ??For accurate Potassium quantification in these patients send serum separator tube (gold top) for subsequent determinations. ??Contact the Clinical Chemistry Laboratory if there are any questions. Chloride 101 98 - 107 mmol/L [facility] Carbon Dioxide 27 22 - 31 mmol/L [facility] Anion Gap 11 5 - 15 mmol/L [facility] Calcium 9.2 8.5 - 10.5 mg/dL [facility] Est Glomerular Filtration Rate 108 >=60 mL/min/1. 73 m?? [facility] Comment: The eGFR was calculated using the CKD-EPI equation. As with all creatinine based estimates of kidney function, eGFR values calculated with the CKD-EPI equation are not accurate in patients with acute kidney failure, extremes of body mass or the acutely ill. http://[employer]/[facility]nkf eGFR 126 >=60 mL/min/1. 73 m?? [facility] Comment: The eGFR was calculated using the CKD-EPI equation. As with all creatinine based estimates of kidney function, eGFR values calculated with the CKD-EPI equation are not accurate in patients with acute kidney failure, extremes of body mass or the acutely ill. http://[employer]/[facility] Blood specimen (specimen) 01/28/2019 11:11 AM EDT 01/28/2019 11:40 AM EDT Narrative Resulting Agency Comment Spec In Lab Judy Gilbert MD CHEMISTRY ORDER ZAINA Performing Organization Address City/[facility] Co de Phone Number [facility] [place] [address] * Prealbumin (01/28/2019 11:11 AM EDT) Prealbumin 33 20 - 40 mg/dL [facility] Comment: Prealbumin levels are generally lower in the pediatric population; adult concentrations are usually attained near puberty. Blood specimen (specimen) 01/28/2019 11:11 AM EDT 01/28/2019 11:40 AM EDT Narrative Resulting Agency Comment Spec In Lab Judy Gilbert MD CHEMISTRY ORDER ZAINA Performing Organization Address City/[facility]/ZIP Co de Phone Number [facility] [place] [address] documented in this encounter Visit Diagnoses Diagnosis PAD (peripheral artery disease) Peripheral vascular disease, unspecified documented in this encounter Care Teams Healthcare Interpreter Relationship Specialty Start Date End Date Beena Wilkes, SHEREE [address] [place] [address] PCP - General Family Medicine 01/13/19 03/02/22 documented as of this encounter
--- OUTSIDE RECORDS SUMMARY | 2024-03-25 13:06 | XMS_ITS | Encounter Summary ---
Author Organization [facility] Address [facility] [place] [address] Care Team Providers Care Screwhead Stoner And Polisher Name Role Phone Saundra Reddy SHEREE Primary Care Provider [phone] Reason for Visit * Reason Comments Claudication pt here for ct and c laudicatin le pt states on ambulation and going up stairs pt states most time starting in the thigh area Encounter Details Date Type Department Care Team (Late st Contact Info) Description 01/22/2018 10:00 AM EDT Office [place] [address] Yves Vegas MD [facility] [place] [address] Abdominal aortic atherosclerosis; Atherosclerosis of aortic bifurcation [...] 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 Shehas needed to take some time off [...] deployment of an Endologix AFX unibody bifurcated [id number] endograft. 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
--- OUTSIDE RECORDS SUMMARY | 2024-03-25 13:06 | XMS_ITS | Encounter Summary ---
Author Organization [facility] Address [facility] [place] [address] Care Team Providers Care Optical Model Maker And Tester Name Role Phone KyleBeena cline SHEREE Primary Care Provider [phone] Encounter Details Date Type Department Care Team (Late st Contact Info) Description 01/23/2019 Orders [place] [address]-1000 Iris Farmer, RN PAD (peripheral artery disease) Social History [...] AM EST Tech [place] [address]1000 Jose Barraza 04/04/2024 11:00 AM EST Office [place] [address]1000 Ayla Davis APRN [facility] [place] [address] Scheduled Orders Name Type Priority Associated Diagnoses [...] (Bezet) 477 ms MUSE SYSTEM Calculated P [place] 64 degrees MUSE SYSTEM Calculated R [place] 60 degrees MUSE SYSTEM Calculated T [place] -39 degrees MUSE SYSTEM INTERPRETATION Normal sinus [...] EDT) Prealbumin 33 20 - 40 mg/dL [facility] Comment: Prealbumin levels are generally lower in the pediatric population; adult concentrations are usually attained near puberty. Blood specimen (specimen) 01/28/2019 11:11 AM EDT 01/28/2019 11:40 AM EDT Narrative Resulting Agency Comment Spec In Lab Judy Gilbert MD CHEMISTRY ORDER ZAINA [facility] [place] [address] * (ABNORMAL) Basic Metabolic Panel (non-fasting) (01/28/2019 11:11 AM EDT) Glucose 120 65 - 199 mg/dL [facility] Comment:Diabetes: >=200 mg/d L plus symptoms Blood Urea Nitrogen 12 8 - 18 mg/dL [facility] Creatinine 0.53(L) 0.70 - 1.20 mg/dL [facility] Sodium 139 135 - 145 mmol/L [facility] Potassium 4.4 3.5 - 5.0 mmol/L [facility] Comment: Please note: ??Patients with WBC >100,000 may have falsely elevated Potassium levels. ??For accurate Potassium quantification in these patients send serum separator tube (gold top) for subsequent determinations. ??Contact the Clinical Chemistry Laboratory if there are any questions. Chloride 101 98 - 107 mmol/L [facility] Carbon Dioxide 27 22 - 31 mmol/L [facility] Anion Gap 11 5 - 15 mmol/L [facility] Calcium 9.2 8.5 - 10.5 mg/dL [facility] Est Glomerular Filtration Rate 108 >=60 mL/min/1. 73 m?? [facility] Comment: The eGFR was calculated using the CKD-EPI equation. As with all creatinine based estimates of kidney function, eGFR values calculated with the CKD-EPI equation are not accurate in patients with acute kidney failure, extremes of body mass or the acutely ill. http://[employer]nkf eGFR 126 >=60 mL/min/1. 73 m?? [facility] Comment: The eGFR was calculated using the CKD-EPI equation. As with all creatinine based estimates of kidney function, eGFR values calculated with the CKD-EPI equation are not accurate in patients with acute kidney failure, extremes of body mass or the acutely ill. http://[employer]nkf Blood specimen (specimen) 01/28/2019 11:11 AM EDT 01/28/2019 11:40 AM EDT Narrative Resulting Agency Comment Spec In Lab Judy Gilbert MD CHEMISTRY ORDER ZAINA [facility] [place] [address] * (ABNORMAL) Hemogram (01/28/2019 11:11 AM EDT) White Blood Cell 6.6 4.0 - 9.5 x10(3)/[facility] Red Blood Cell 4.16 4.00 - 5.21 x10(6)/mc L [facility] Hemoglobin 13.3 11.7 - 15.5 gm/dL [facility] Hematocrit 40.4 35.7 - 45.8 % [facility] Mean Cell Volume 97.1(H) 82.6 - 94.4 fL [facility] Mean Cell Hemoglobin 32.0 27.1 - 32.0 pg [facility] Mean Cell Hemoglobin Concentration 32.9 31.7 - 35.0 gm/dL [facility] Platelet 287 145 - 357 x10(3)/[facility] LABOR[facility]ORY RDW Standard Deviation 44.3 37.0 - 46.0 [facility] RDW coefficient of variation 12.3 11.5 - 14.1 % [facility] Mean Platelet Volume 10.0 7.6 - 12.9 fL [facility] NRBC% auto 0.0 % [facility] NRBC Absolute 0.000 0.000 - 0.000 x10(3)/[facility] Blood specimen (specimen) 01/28/2019 11:11 AM EDT 01/28/2019 11:40 AM EDT Narrative Resulting Agency Comment Spec In Lab Judy Gilbert MD HEMATOLOGY HALEY GARCIA [facility] [place] [address] documented in this encounter Visit Diagnoses Diagnosis PAD (peripheral artery disease) Peripheral vascular disease, unspecified documented in this encounter Care Teams Optical Model Maker And Tester Relationship Specialty Start Date End Date Beena Wilkes, ASSOCIATE ARTISTIC DIRECTOR [address] [place] [address] PCP - General Family Medicine 01/13/19 03/02/22 documented as of this encounter
--- OUTSIDE RECORDS SUMMARY | 2024-03-25 13:06 | XMS_ITS | Encounter Summary ---
Author Organization [facility] Address [facility] [place] [address] Care Team Providers Care Parts Finisher Name Role Phone Jorge LuisSaundra hogan Sunil BENTLEY Primary Care Provider [phone] Reason for Visit * Auth/Cert Specialty Diagnoses / Procedures Referred By Beverley guardado Referred To Contact Diagnoses claudication Procedures PRO ENDOVASC REPAIR DEPLOYMENT [id number] ENDOGRAFT 1 Referral ID Status Reason Start Date Expiration Date Visits Re quested Visits Authorized [id number] 1 1 Encounter Details Date Type Department Care Team (Latest Contact Info) Description 03/05/2018 8:45 AM EDT - 03/05/2018 11:59 PM EDT Hospital Encounter Radiology Library at [facility] [place] [address] Discharge Disposition: Home Social History Tobacco Use [...] AM EST Tech [place] [address] Jose Barraza 04/04/2024 11:00 AM EST Office [place] [address]1000 Ayla Davis APRN [facility] [place] [address] documented as of this encounter Procedures Procedure Name Priority Date/Time Associated Diagnosis Comments IR OR VASC ANGIOGRAM IMAGE STORAGE ONLY Routine 03/05/2018 8:45 AM EDT documented in this encounter Results * IR OR VASC Aniogram Image Storage Only (03/05/2018 8:45 AM EDT) Narrative [facility] - 03/05/2018 8:45 AM EDT This exam is for storage only and is auto-finalizing. Yves Vegas MD IM FILM LIBRARY ORD ERABLES [place], [place] documented in this encounter Visit Diagnoses Not on filedocumented in this encounter Care Teams Parts Finisher Relationship Specialty Start Date End Date Saundra Reddy APRN PCP - General Family Medicine 01/02/18 12/02/18 documented as of this encounter
--- OUTSIDE RECORDS SUMMARY | 2024-03-25 13:06 | XMS_ITS | Encounter Summary ---
Author Organization [facility] [place] [address] Care Team Providers Care Laboratory Associate Name Role Phone Saundra Reddy APRN Primary Care Provider [phone] Reason for Visit * Auth/Cert Specialty Diagnoses / Procedures Referred By Beverley guardado Referred To Contact Diagnoses claudication Procedures PRO ENDOVASC REPAIR DEPLOYMENT [id number] ENDOGRAFT 1 Referral ID Status Reason Start Date Expiration Date Visits Re quested Visits Authorized [id number] 1 1 Encounter Details Date Type Department Care Team (Late st Contact Info) Description 03/05/2018 7:32 AM EDT Anesthesia [place] [phone] Taqueria Gore MD [facility] [place] [address] Joe Cano CRNA [facility] [place] [address] Anesthesia Record Procedure Summary Procedure Name Responsible Anesthesiologist Anesthesia Start Time Anesthesia Stop Time TRANSCATH PLACEMENT INTRAVASCULAR STENT, OPN/PERQ, INITIAL ARTERY, S&I (WRVU 8.75) (Abdomen) Taqueria Gore MD 03/05/18 0732 03/05/18 1139 Events Date Time Event Comment 03/05/2018 0720 0732 AN Verify 0732 Start 0735 An Start Data 0746 An Induction 0746 An Intubation 0758 Anesthesia Ready 0845 Break/Relief In TAQUERIA Olsen MD 0922 ABG Data Arterial Blood Gas result: pH [...] 0725; metacarpal vein (top of hand), right; ukou-lhr-etvdmo catheter system; 20 gauge, 3/4 in length; [...] Time: 1116 03/05/18 0746 by Joe Cano, RECRUITMENT DIRECTOR 03/05/18 1116 by Joe Cano CRNA Arterial Line 03/05/18; 0750; radi al artery, right; 20 gauge; tn; Sterile Prep, Sterile Gloves; no longer indicated, catheter intact, removed per policy; 03/05/18; 201403/05/18 0750 by Joe Cano, KIMBERLY 03/05/182014 by Viridiana Hyatt RN (RETIRED) Peripheral IV Line - Single Lumen 03/05/18; 0758; basilic vein (medial side of arm), right; yczm-ali-akztcg catheter system; 16 gauge; 03/06/18; 1404 03/05/18 0758 by Joe Cano, RECRUITMENT DIRECTOR 03/06/18 1404 by Shelli Morel RN Urethral [...] Gore MD - 03/05/2018 12:30 PM EDT [facility] Department of Anesthesiology Post-procedure Note Patient: Emiliana Farmer Procedure Summary Date: 03/05/18 Room / Location: [address] MAIN OR Anesthesia Start: 731 Anesthesia [...] All Anesthesia Providers: Anesthesiologist: Taqueria Gore MD RECRUITMENT DIRECTOR: Joe Cano CRNA Patient Location: PACU/[facility] Level of Consciousness: Conscious but Sleepy Pain [...] y.o. female. Procedure(s): @EVG, AORTA/ILIAC ART RPR [id number] ENDOGRAFT; ANEURX Patient Active Problem List Diagnosis [...] consented to blood products. Plan discussed with RECRUITMENT DIRECTOR. PAT Staff Note Attending NOTE Brief HPI: [...] and appropriate Anesthetic Plan: GETA Monitoring: Standard nikki ASA monitors documented in this encounter Plan of Treatment Upcoming Encounters Date Type Department Care Team (Late st Contact Info) Description 04/04/2024 10:30 AM EST Tech [place] [address]1000 Jose Barraza 04/04/2024 11:00 AM EST Office Visit [place] [address]-1000 Ayla Davis, ORACLE EBS CONSULTANT [facility] DR VASCULAR SURGERY [place], [place] [phone] documented as of this encounter Visit Diagnoses [...] mg documented in this encounter Care Teams Laboratory Associate Relationship Specialty Start Date End Date Saundra Reddy, ORACLE EBS CONSULTANT PCP - General Family Medicine 01/02/18 12/02/18 documented as of this encounter
--- OUTSIDE RECORDS SUMMARY | 2024-03-25 13:06 | XMS_ITS | Encounter Summary ---
Author Organization [facility] Address [facility] [place] [address] Care Team Providers Care Pressing Department Supervisor Name Role Phone Jorge LuisSaundra hogan Sunil BENTLEY Primary Care Provider [phone] Reason for Referral * Diagnostic Test (Routine) - Closed Specialty Diagnoses / Procedures Referred By Contac t Referred To Contact Radiology Diagnoses Atherosclerosis of g[place] artery of both lower extremities with intermittent claudication Procedures CT Angiogram Aorta Lower Extremity Runoff Lesley Serrano [place] [facility] [place] [address] [facility] [place] [address] Referral ID Status Reason Start Date Expiration Date V isits Requested Visits Authorized [id number] Closed Specialty Service Requested 01/07/2018 02/23/2018 1 1 Reason for Visit * Diagnostic Test (Routine) - Closed Specialty Diagnoses / Procedures Referred By Contac t Referred To Contact Radiology Diagnoses Atherosclerosis of gakona artery of both lower extremities with intermittent claudication Procedures CT Angiogram Aorta Lower Extremity Runoff Lesley Serrano [place] [facility] [place] [address] [facility] [place] [address] Referral ID Status Reason Start Date Expiration Date V isits Requested Visits Authorized [id number] Closed Specialty Service Requested 01/07/2018 02/23/2018 1 1 Encounter Details Date Type Department Care Team (Latest Contact Info) Description 01/22/2018 7:12 AM EDT - 01/22/2018 11:59 PM EDT Hospital [place] [address]1000 Consuelo Toledo MD [facility] [place] [place] [address] Atherosclerosis of gakona artery of both lower extremities with intermittent [...] AM EST Tech [place] [address]-1000 Jose Barraaz 04/04/2024 11:00 AM EST Office Visit [place] [address]-1000 Ayla Davis, DIRECTOR [employer] [facility] [place] [address] documented as of this encounter Procedures Procedure Name Priority Date/Time Associated Diagnosis Comments CT ANGIOGRAM AORTA LOWER EXTREMITY RUNOFF Routine 01/22/2018 7:58 AM EDT Atherosclerosis of g[place]ona artery of both lower extremities with intermittent [...] of the remainder. 3. ??Patent bilateral three-vessel zukqw-gly-ewxz runoff to the foot ?? 4. ??Remainder [...] of the remainder. 3. Patent bilateral three-vessel dadwz-vzq-lmwm runoff to the foot 4. Remainder of [...] this encounter Visit Diagnoses Diagnosis Atherosclerosis of gakona artery of both lower extremities with intermittent claudication Atherosclerosis of gakona arteries of the extremities with intermittent claudication [...] mLs documented in this encounter Care Teams Pressing Department Supervisor Relationship Specialty Start Date End Date Saundra Reddy APRN PCP - General Family Medicine 01/02/18 12/02/18 documented as of this encounter
--- OUTSIDE RECORDS SUMMARY | 2024-03-25 13:06 | XMS_ITS | Encounter Summary ---
Author Organization [facility] Address [facility] [place] [address] Care Team Providers Care Residential Appliance Repair Technician Name Role Phone None Primary Care Provider Unavailabl e Encounter Details Date Type Department Care Team (Latest Contact Info) Description 12/03/2018 8:30 AM EDT Tech Visit [place] [address]1000 Gallo Zazueta, RVT Iliac artery stenosis, bilateral; [...] AM EST Tech Visit [place] [address]1000 Jose Barraza 04/04/2024 11:00 AM EST Office [place] [address]-1000 Ayla Davis, SHEREE [facility] [place] [address] documented as of this encounter Procedures Procedure Name Priority Date/Time Associated Diagnosis Comments SHA, LEGS, MULTIPLE LEVELS Routine 12/03/2018 8:28 AM EDT Iliac artery stenosis, bilateral Stenosis of infrarenal abdominal aorta due to arteriosclerosis documented in this encounter Results * SHA, legs, multiple levels (12/03/2018 8:28 AM EDT) VB Text Report Department: Vascular Surgery Lab Patient: [id number] (EMILIANA FARMER) CPT: 12239 ICD10: I70.0;I77.1 Referring Physician: RADHA EMERY, SHEREE [...] VASCUBASE 12/03/2018 8:28 AM EDT Radha Emery TRIAGE TECHNICIAN VASCULAR ORDERABLE S Performing Organization Address City/State/[facility] Co de Phone Number VASCUBASE documented in this encounter Visit Diagnoses Diagnosis Iliac artery stenosis, bilateral Stricture of artery Stenosis of infrarenal abdominal aorta due to arteriosclerosis Atherosclerosis of aorta documented in this encounter Care Teams Residential Appliance Repair Technician Relationship Specialty Start Date End Date None None PCP - General 12/03/18 01/12/19 documented as of this encounter
--- OUTSIDE RECORDS SUMMARY | 2024-03-25 13:06 | XMS_ITS | Encounter Summary ---
Author Organization [facility] Address [facility] [place] [address] Care Team Providers Care Race Relations Professor Name Role Phone ChungBeena SHEREE Primary Care Provider [phone] Reason for Visit * Diagnostic Test (Routine) - Closed Specialty Diagnoses / Procedures Referred By Contac t Referred To Contact Radiology Diagnoses PAD (peripheral artery disease) Procedures NM Pharmacologic Stress Myocardial Perfusion Rashawn Dawn MD [facility] [place] [address] [place] [address] Referral ID Status Reason Start Date Expiration Date V isits Requested Visits Authorized [id number] Closed Specialty Service Requested 01/28/2019 01/28/2020 1 1 Encounter Details Date Type Department Care Team (Latest Contact Info) Description 03/06/2019 7:08 AM EDT Hospital Encounter [place] [address] Rashawn Dawn MD [facility] [place] [address] Discharge Disposition: Home Social History [...] AM EST Tech [place] [address] Jose Barraza 04/04/2024 11:00 AM EST Office Visit [place] [address] Ayla Davis, SHEREE [facility] [place] [place] [address] documented as of this encounter Procedures Procedure [...] contact the number below. Rashawn Dawn MD [facility] [place] ORDERABLES * NM Pharmacologic Stress Myocardial [...] contact the number below. Rashawn Dawn MD IMG [place] ORDERABLES documented in this encounter Visit Diagnoses Not on filedocumented in this encounter Care Teams Race Relations Professor Relationship Specialty Start Date End Date Beena Wilkes, SHEREE [address] [place] [address] PCP - General Family Medicine 01/13/19 03/02/22 documented as of this encounter
--- OUTSIDE RECORDS SUMMARY | 2024-03-25 13:06 | XMS_ITS | Encounter Summary ---
Author Organization [facility] Address [facility] [place] [address] Care Team Providers Care Concrete Rubber Name Role Phone ChungBeena SHEREE Primary Care Provider [phone] Reason for Visit * Diagnostic Test (Routine) - Closed Specialty Diagnoses / Procedures Referred By Contac t Referred To Contact Radiology Diagnoses PAD (peripheral artery disease) Procedures NM Pharmacologic Stress Myocardial Perfusion Rashawn Dawn MD [facility] [address] [place] [address] Referral ID Status Reason Start Date Expiration Date V isits Requested Visits Authorized [id number] Closed Specialty Service Requested 01/28/2019 01/28/2020 1 1 Encounter Details Date Type Department Care Team (Latest Contact Info) Description 03/06/2019 7:08 AM EDT Hospital Encounter [place] [address] Rashawn Dawn MD [facility] [address] Discharge Disposition: Home Social History [...] AM EST Tech Visit [place] [address] Jose Barraza 04/04/2024 11:00 AM EST Office Visit [place] [address] Ayla Davis, SHEREE [facility] [place] [address] documented as of this encounter Procedures Procedure [...] mCi documented in this encounter Care Teams Concrete Rubber Relationship Specialty Start Date End Date Beena Wilkes, SHEREE [address] [place] [address] PCP - General Family Medicine 01/13/19 03/02/22 documented as of this encounter
--- OUTSIDE RECORDS SUMMARY | 2024-03-25 13:06 | XMS_ITS | Encounter Summary ---
Author Organization [facility] Address [facility] [place] [address] Care Team Providers Care Sonographer Name Role Phone Jorge Luisedison Saundra Edison BENTLEY Primary Care Provider Encounter Details Date Type Department Care Team (Late st Contact Info) Description 04/15/2018 1:00 PM EST Office [place] [address] Radha Emery APRN [facility] [place] [address] Stenosis of aorta; Iliac artery stenosis, bilateral [...] hypertension, right renal artery stenosis sp angioplasty [id number], and short distance bilateral buttocks and thigh [...] ND, no palpable pulsatile masses Extremity - [place], warm, no ulceration, brisk capillary refill, no [...] AM EST Tech [place] [address] Jose Barraza 04/04/2024 11:00 AM EST Office [place] [address]1000 Ayla Davis APRN [facility] [place] [address] documented as of this encounter Results * SHA, legs, multiple levels (07/09/2018 7:29 AM EST) VB Text Report Department: Vascular Surgery Lab Patient: [id number] (EMILIANA FARMER) CPT: 09552 ICD10: I77.1;Q25.3 Referring Physician: RADHA EMERY APRN [...] artery documented in this encounter Care Teams Sonographer Relationship Specialty Start Date End Date Saundra Reddy, STEAMBOAT PILOT PCP - General Family Medicine 01/02/18 12/02/18 documented as of this encounter
--- OUTSIDE RECORDS SUMMARY | 2024-03-25 13:06 | XMS_ITS | Encounter Summary ---
Author Organization [facility] Address [facility] [place] [address] Care Team Providers Care Clinical Trial Manager Name Role Phone KyleBeena cline SHEREE Primary Care Provider [phone] Reason for Referral * Diagnostic Test (Routine) - Closed Specialty Diagnoses / Procedures Referred By Contac t Referred To Contact Radiology Diagnoses PAD (peripheral artery disease) Procedures NM Pharmacologic Stress Myocardial Perfusion Rashawn Dawn MD [facility] [place] [address] [place] [address] Referral ID Status Reason Start Date Expiration Date V isits Requested Visits Authorized [id number] Closed Specialty Service Requested 01/28/2019 01/28/2020 1 1 Reason for Visit * Diagnostic Test (Routine) - Closed Specialty Diagnoses / Procedures Referred By Contac t Referred To Contact Radiology Diagnoses PAD (peripheral artery disease) Procedures NM Pharmacologic Stress Myocardial Perfusion Rashawn Dawn MD [facility] [place] [address] [place] [address] Referral ID Status Reason Start Date Expiration Date V isits Requested Visits Authorized [id number] Closed Specialty Service Requested 01/28/2019 01/28/2020 1 1 Encounter Details Date Type Department Care Team (Latest Contact Info) Description 03/06/2019 7:07 AM EDT Hospital Encounter [place] [phone] Rashawn Dawn MD [facility] [place] [address] PAD (peripheral artery disease) Discharge Disposition: Home [...] AM EST Tech [place] [address] Jose Barraza Jorge 04/04/2024 11:00 AM EST Office [place] [address] Ayla Davis, SHEREE [facility] [place] [address] documented as of this encounter Procedures Procedure [...] contact the number below. Rashawn Dawn MD [facility] [place] ORDERABLES documented in this encounter Visit [...] Arm documented in this encounter Care Teams Clinical Trial Manager Relationship Specialty Start Date End Date Beena Wilkes, PLATING TANK OPERATOR APPRENTICE [address] [place] [address] PCP - General Family Medicine 01/13/19 03/02/22 documented as of this encounter
--- OUTSIDE RECORDS SUMMARY | 2024-03-25 13:06 | XMS_ITS | Encounter Summary ---
Author Organization [facility] [place] [address] Care Team Providers Care Light Bulb Replacer Name Role Phone Saundra Reddy SHEREE Primary Care Provider [phone] Reason for Visit * Auth/Cert Specialty Diagnoses / Procedures Referred By Beverley t Referred To Contact Diagnoses claudication Procedures PRO ENDOVASC REPAIR DEPLOYMENT [id number] ENDOGRAFT 1 Referral ID Status Reason Start Date Expiration Date Visits Re quested Visits Authorized [id number] 1 1 Encounter Details Date Type Department Care Team (Late st Contact Info) Description 03/05/2018 7:30 AM EDT - 03/05/2018 11:38 AM EDT Surgery [place] [address] Angel Mccullough MD [facility] [place] [address] TRANSCATH PLACEMENT INTRAVASCULAR STENT, OPN/PERQ, INITIAL ARTERY, [...] hypertension, right renal artery stenosis sp angioplasty [id number], and short distance bilateral buttocks and thigh [...] in 170s systolic. 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 General Instructions None Future Appointments and Orders Future Appointments and Orders Future Appointments Provider Department Dept Phone 04/15/2018 12:30 PM Azucena Evans [place] Vascular Lab at [place] Arrive at: Financial Systems Administrator Area 3V [phone] 04/15/2018 1:00 PM Radha Emery APRN Vascular Surgery at [place] Arrive at: Financial Systems Administrator Area 3V [phone] Future Orders Complete By Expires SHA, legs, multiple levels [VAS8 Custom] 04/06/2018 (Approximate) 03/06/2019 Process Instructions: There is no in-house vascular tanbark laborer available on weeknights (5pm-8am), weekends, or holidays. IF THIS IS A REQUEST FOR AN EMERGENT STUDY DURING THOSE HOURS, please have the senior provider responsible for the patient page the Vascular Surgery Fellow/Senior Resident regional trainer to discuss options. Scheduling Instructions: Questions: Indication for study/signs & symptoms: s/p aortic and iliac stent graft placement Question to be answered: bloodflow to feet Which DH location will this be performed?: [place] Discharge References/Attachments: Discharge References/Attachments None Electronically Signed [...] For any problems or questions please call [phone] TOR Broussard, digital circuit designer Nurse Clinician For issues on weeknights after 5pm and weekends please call [phone] and ask for the Vascular Fellow regional trainer. documented in this encounter Medications at Time [...] stent and bilat common iliac stents, left GERIATRIC SOCIAL WORK PROFESSOR cutdown Int Pt seen on pm rounds [...] MD/GLENNY, PGY-5 Section of Vascular Surgery, Pager [phone] Associated attestation - Angel Mccullough MD - [...] hypertension, right renal artery stenosis sp angioplasty [id number], and short distance bilateral buttocks and thigh [...] in 170s systolic. 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 No tissue loss. HSA 0.6 bilaterally. Plan for bilateral iliac covered stent and bare metal aortic stent. Possible left brachial access. Risks include bleeding, infection, injury to surrounding structures, hematoma, kidney injury, inability to advance the device considering small iliac diameters, iliac rupture, and need for further intervention. Judy Figueroa MD/GLENNY, PGY-5 Section of Vascular Surgery, Pager [phone] Associated attestation - Angel Mccullough MD - [...] Figueroa MD - 03/05/2018 12:00 PM EDT [facility] Operative Note ?? Patient Name: Walker Farmer : [id number] MR#: [id number] ?? Case Date: 03/05/2018 ?? Surgeon: Surgeon(s) and Role: * Angel Mccullough MD - Primary * Judy Figueroa MD - Resident-Manager Fraud ?? 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 Procedures: Bard Lifestyle 14 x 40 stent in distal-most abdominal aorta (85081) 7 x 59 iCast stent graft in right common iliac artery (82659) 7 x 59 iCast stent graft in left common iliac artery (42945) Anesthesia: General ?? Findings: Failure of percutaneous [...] Implant Name Type Inv. Item Serial No. Rubber Insulator Lot No. LRB No. Used Action STENT,LSTAR,VASC,[id number],80CM ([id number]) - [id number] IMPLANTS STENT,LSTAR,VASC,[id number],80CM ([id number]) ?? [employer]ARD [employer] - CR BARD [id number] N/A 1 Implanted STENT,ICAST,CVR,8X59MM,80CM ([id number]) - [id number] IMPLANTS STENT,ICAST,CVR,8X59MM,80CM ([id number]) [id number] [employer] GETINGE GR ?? N/A 1 Wasted STENT,ICAST,CVR,7X59MM,120CM ([id number]) - [id number] IMPLANTS STENT,ICAST,CVR,7X59MM,120CM [id number] [employer] GET[employer]E GR ?? Left 1 Implanted STENT,ICAST,CVR,7X59MM,120CM ([id number]) - [id number] IMPLANTS STENT,ICAST,CVR,7X59MM,120CM ([id number] [employer] GET[employer]E GR ?? Right 1 Implanted ? PRBCs: none (See Anesthesia Record/Report for Other Blood Products) Urine Output: 600 mL ?? Drains: None ?? Disposition: PACU ?? Condition: Stable HPI: 53F former smoker (quit Dec, 2017) with hypertension, right renal artery stenosis sp angioplasty at8288, and short distance bilateral buttocks and thigh [...] in 170s systolic. 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 Heparin was given. Using a stiff Glidewire and NTA catheter we were able to cross the lesions in the iliac and infrarenal aorta and advanced the stiff Glidewire into the descending thoracic part of the aorta. We attempted to proceed the same procedure on the left side. An 18 Anguillan needle was used to access the left common femoral artery. However despite multiple attempts at access (with 4 attempts at puncturing the artery), due to the small caliber of the vessel we were unable to successfully advance a Warden wire. Therefore at that point we elected [...] artery proximal and distal. With an 18 Anguillan needle we are able to access the [...] wires through an NTA catheter. The 5 Anguillan sheaths were exchanged for 25 cm 7 Anguillan long sheaths. On the left side a [...] placing the common iliac stents. The 7 Anguillan sheaths were advanced into the infrarenal aorta. [...] angiogram was repeated in 30 degrees of COLOMBIAN and 30 degrees of MESSINA to confirm [...] Operative Note Patient Name: Walker Farmer : [id number] MR#: [id number] Case Date: 03/05/2018 Surgeon: Surgeon(s) and Role: * Angel Mccullough MD - Primary * Judy Figueroa MD - Resident-Manager Fraud Preoperative diagnosis: Nearly occlusive abdominal aortic and common iliac plaque causing bilateralintermittent claudication Postoperative diagnosis: Nearly occlusive abdominal aortic and common iliac plaque causing bilateral intermittent claudication Procedures: Bard Lifestyle 14 x 40 stent in distal-most abdominal aorta (52722) 7 x 59 iCast stent graft in right common iliac artery (67528) 7 x 59 iCast stent graft in left common iliac artery (95662) Anesthesia: General Findings: Failure of percutaneous access [...] Implant Name Type Inv. Item Serial No. Rubber Insulator Lot No. LRB No. Used Action STENT,LSTAR,VASC,[id number],80CM ([id number]) - [id number] IMPLANTS STENT,LSTAR,VASC,[id number],80CM ([id number]) [employer] - [employer] BARD [id number] N/A 1 Implanted STENT,ICAST,CVR,8X59MM,80CM ([id number]) - [id number] IMPLANTS STENT,ICAST,CVR,8X59MM,80CM ([id number]) [id number] [employer] N/A 1 Wasted STENT,ICAST,CVR,7X59MM,120CM ([id number]) - [id number] IMPLANTS STENT,ICAST,CVR,7X59MM,120CM ([id number] [employer] Left 1 Implanted STENT,ICAST,CVR,7X59MM,120CM ([id number]) - [id number] IMPLANTS STENT,ICAST,CVR,7X59MM,120CM ([id number] [employer] Right 1 [...] AM EST Tech Visit [place] [id number] Jose Barraza 04/04/2024 11:00 AM EST Office [place] [id number] Ayla Davis, SHEREE [facility] [place] [address] documented as of this encounter Procedures Procedure Name Priority Date/Time Associated Diagnosis Comments SHA, LEGS, MULTIPLE LEVELS Routine 03/06/2018 6:31 AM EDT Aortoiliac occlusive disease Intermittent claudication DIFFERENTIAL, MANUAL Routine 03/06/2018 4:40 AM EDT HEMOGRAM Routine 03/06/2018 4:40 AM EDT CBC (WITH DIFF) Routine 03/06/2018 4:40 AM EDT BASIC METABOLIC PANEL Routine 03/06/2018 4:40 AM EDT REVSC OPN\PRQ ILIAC ART W\STNT & ANGIOP EA IPSILATERAL VSL-BL Routine 03/05/2018 11:32 AM EDT REVSC OPN\PRQ ILIAC ART W\STNT PLMT & ANGIOP SAME VSL BILAT Routine 03/05/2018 11:32 AM EDT TRANSCATH PLACEMENT INTRAVASCULAR STENT, OPN/PERQ, INITIAL ARTERY, S&I Routine 03/05/2018 11:32 AM EDT IR OR VASC ANGIOGRAM IMAGE STORAGE ONLY Routine 03/05/2018 8:45 AM EDT BLOOD GAS ARTERIAL POC Routine 03/05/2018 8:43 AM EDT REVSC OPN\PRQ [...] 03/05/2018 6:42 AM EDT BASIC METABOLIC PANEL Routine 03/05/2018 6:42 AM EDT CEMETERY WORKERS SUPERVISOR SCAN 03/05/2018 12:00 AM EDT IMPLANTABLE DEVICES SCAN 03/05/2017 12:00 AM EDT documented in this encounter Results * SHA, legs, multiple levels (04/15/2018 12:17 PM EST) VB Text Report Department: Vascular Surgery Lab Patient: [id number] (WALKER FARMER) CPT: 46555 ICD10: I73.9;I74.09 Referring Physician: ANGEL MCCULLOUGH ?? [...] Text Report Department: Vascular Surgery Lab Patient: [id number] (WALKER FARMER) CPT: 04436 ICD10: I74.09;I73.9 Referring Physician: ANGEL MCCULLOUGH ?? [...] Manual (03/06/2018 4:40 AM EDT) Neutrophil % Manual 81 % [facility] Lymphocyte Manual 17 % [facility] Monocyte Manual 2 % [facility] Neutrophil Absolute (ANC) - Manual 11.9(H) 1.5 - 6.3 x10(3)/mcL [facility] Neutrophil Absolute (ANC) - Automated 11.91(H) 1.70 - 6.10 x10(3)/[facility] LABORATORY Lymph Absolute Manual 2.5 1.0 - 3.6 x10(3)/[facility] LABORATORY Monocyte Absolute Manual 0.3 0.2 - 1.0 x10(3)/[facility] LABORATORY Total Cells Ct 100 [facility] Plat estimate Normal [facility] RBC Morphology Normal [facility] Hyperseg Neutro Present [facility] Blood specimen (specimen) 03/06/2018 4:40 AM EDT 03/06/2018 4:46 AM EDT Narrative Resulting Agency Comment Spec In Lab Judy Figueroa MD HEMATOLOGY ORDERABLE S Performing Organization Address City/State/[facility] Co de Phone Number [facility] [place] [address] * (ABNORMAL) Hemogram (03/06/2018 4:40 AM EDT) White Blood Cell 14.7(H) 4.0 - 9.5 x10(3)/[facility] LABORATORY Red Blood Cell 3.43(L) 4.00 - 5.21 x10(6)/mc L [facility] Hemoglobin 11.1(L) 11.7 - 15.5 gm/dL [facility] Hematocrit 32.4(L) 35.7 - 45.8 % [facility] Mean Cell Volume 94.5(H) 82.6 - 94.4 fL [facility] Mean Cell Hemoglobin 32.4(H) 27.1 - 32.0 pg [facility] Mean Cell Hemoglobin Concentration 34.3 31.7 - 35.0 gm/dL [facility] Platelet 236 145 - 357 x10(3)/ L [facility] RDW Standard Deviation 44.4 37.0 - 46.0 fL [facility] RDW coefficient of variation 13.0 11.5 - 14.1 % [facility] Mean Platelet Volume 9.7 7.6 - 12.9 fL [facility] NRBC% auto 0.0 % [facility] NRBC Absolute 0.000 0.000 - 0.000 x10(3)/mc L [facility] Blood specimen (specimen) 03/06/2018 4:40 AM EDT 03/06/2018 4:46 AM EDT Narrative Resulting Agency Comment Spec In Lab Judy Figueroa MD HEMATOLOGY ORDERABLE S [facility] [place] [address] * (ABNORMAL) Basic Metabolic Panel (non-fasting) (03/06/2018 4:40 AM EDT) Glucose 126 65 - 199 mg/dL [facility] Comment:Diabetes: >=200 mg/d L plus symptoms Blood Urea Nitrogen 8 8 - 18 mg/dL [facility] Creatinine 0.53(L) 0.70 - 1.20 mg/dL [facility] Sodium 137 135 - 145 mmol/L [facility] Potassium 4.1 3.5 - 5.0 mmol/L [facility] Comment: Please note: ??Patients with WBC >100,000 may have falsely elevated Potassium levels. ??For accurate Potassium quantification in these patients send serum separator tube (gold top) for subsequent determinations. ??Contact the Clinical Chemistry Laboratory if there are any questions. Chloride 104 98 - 107 mmol/L [facility] Carbon Dioxide 25 22 - 31 mmol/L [facility] Anion Gap 8 5 - 15 mmol/L [facility] Calcium 8.5 8.5 - 10.5 mg/dL [facility] Est Glomerular Filtration Rate 109 >=60 mL/min/1. 73 m?? [facility] Comment: The eGFR was calculated using the CKD-EPI equation. As with all creatinine based estimates of kidney function, eGFR values calculated with the CKD-EPI equation are not accurate in patients with acute kidney failure, extremes of body mass or the acutely ill. [email or web address] eGFR 127 >=60 mL/min/1. 73 m?? [facility] Comment: The eGFR was calculated using the CKD-EPI equation. As with all creatinine based estimates of kidney function, eGFR values calculated with the CKD-EPI equation are not accurate in patients with acute kidney failure, extremes of body mass or the acutely ill. [email or web address] Blood specimen (specimen) 03/06/2018 4:40 AM EDT 03/06/2018 4:46 AM EDT Narrative Resulting Agency Comment Spec In Lab Anegl Mccullough MD CHEMISTRY ORDERABLES Performing Organization Address [facility] de Phone Number [facility] [place] [address] * IR OR VASC Aniogram Image Storage Only (03/05/2018 8:45 AM EDT) Narrative [facility] - 03/05/2018 8:45 AM EDT This exam is for storage only and is auto-finalizing. Angel Mccullough MD IMG FILM LIBRARY ORD ERABLES Performing Organization Address [facility] Co de Phone Number [place], [place] * (ABNORMAL) BLOOD GAS 2 ARTERIAL (03/05/2018 8:43 AM EDT) pH, Arterial 7.49(H) 7.35 - 7.45 [facility] PCO2, Arterial 32(L) 35 - 45 mmHg [facility] PO2, Arterial 276(H) 85 - 104 mmHg [facility] Bicarbonate, Arterial 24.0 20.0 - 26.0 mmol/L [facility] Base Excess, Arterial 0.6 -3.0 - 3.0 mmol/L [facility] Hgb Blood Gas 12.7 11.7 - 15.5 gm/dL [facility] Oxyhemoglobin, Arterial 98.2(H) 94.0 - 97.0 % [facility] Carboxyhemoglob in, Arterial 0.8 % [facility] Comment: Nonsmokers: 0.5-1.5% COHB Smokers: Variable, but usually less than 10% Toxic: 20-30% COHB Lethal: Greater than 60% COHB Methemoglobin, Arterial 0.3 <=1.5 % [facility] Na Whole Blood 138 135 - 145 mmol/L [facility] K Whole Blood 3.6 3.5 - 5.0 mmol/L [facility] Comment: Please note: Patients with WBC >100,000 may have falsely elevated Potassium levels. Contact the Clinical Chemistry Laboratory if there are any questions. ICa Whole Blood 1.12(L) 1.15 - 1.33 mmol/L [facility] Comment: Note: ??Total bilirubin higher than 20 mg/dL may lead to falsely low ionized calcium. CL Whole Blood 106 98 - 107 mmol/L [facility] Gluc Whole Bld 159 65 - 199 mg/dL [facility] Comment:Diabetes: >=200 mg/d L plus symptoms. Lactate WB 1.8 0.5 - 2.2 mmol/L [facility] Blood specimen (specimen) 03/05/2018 8:43 AM EDT 03/05/2018 8:43 AM EDT Angel Mccullough MD POINT OF CARE TEST O RDERABLES [facility] [place] [address] * EKG 12 Lead (03/05/2018 7:04 AM EDT) Ventricular rate 72 BPM MUSE SYSTEM Atrial Rate 72 BPM MUSE SYSTEM P-R Interval 170 ms MUSE SYSTEM QRS Duration 116 ms MUSE SYSTEM Q-T Interval 452 ms MUSE SYSTEM QTC Calculated (Bezet) 494 ms MUSE SYSTEM Calculated P [place] 59 degrees MUSE SYSTEM Calculated R [place] 31 degrees MUSE SYSTEM Calculated T [place] 34 degrees MUSE SYSTEM INTERPRETATION Normal sinus rhythm Left bundle branch block Abnormal ECG No previous ECGs available Confirmed by MD CALDERON JOHN ([id number]) on 03/05/2018 8:32:44 AM MUSE SYSTEM 03/05/2018 7:04 AM EDT 03/05/2018 8:32 AM EDT Angel Mccullough MD ECG ORDERABLES MUSE SYSTEM * ABORH Recheck Status (03/05/2018 6:42 AM EDT) ABORH Recheck Order Order Placed [facility] ABORH Type Recheck Complete [facility] Blood specimen (specimen) 03/05/2018 6:42 AM EDT 03/05/2018 6:46 AM EDT Narrative Resulting Agency Comment Spec In Lab Laura Romo MD BLOOD BANK L AB ORDERABLES Performing Organization Address City/[facility]/ZIP Co de Phone Number [facility] [place] [address] * Antibody screen (03/05/2018 6:42 AM EDT) Ab Screen Interp Negative [facility] Expires at [id number] on: 03/08/2018 [facility] Blood specimen (specimen) 03/05/2018 6:42 AM EDT 03/05/2018 6:46 AM EDT Narrative Resulting Agency Comment Spec In Lab Laura Romo MD BLOOD BANK L AB ORDERABLES [facility] [place] [address] * ABO/Rh Typing (03/05/2018 6:42 AM EDT) ABORH Type A Pos [facility] Blood specimen (specimen) 03/05/2018 6:42 AM EDT 03/05/2018 6:46 AM EDT Narrative Resulting Agency Comment Spec In Lab Laura Romo MD BLOOD BANK L AB ORDERABLES [facility] [place] [address] * (ABNORMAL) Differential, Automated (03/05/2018 6:42 AM EDT) Neutrophil % 70.6 % [facility] Neutrophil Absolute 8.01(H) 1.70 - 6.10 x10(3)/mc L [facility] Lymph % 22.8 % [facility] Lymphocytes Abs 2.6 0.9 - 3.2 x10(3)/mc L [facility] Monocyte % 4.3 % [facility] Monocyte Abs 0.5 0.3 - 0.9 x10(3)/mc L [facility] Eos % 1.6 % [facility] Eosinophils Abs 0.2 0.0 - 0.4 x10(3)/mc L [facility] Basophil % 0.4 % [facility] Baso Absolute 0.0 0.0 - 0.1 x10(3)/mc L [facility] Immature Gran % 0.30 % [facility] Comment: Immature granulocytes(IG's)percentage and absolute count will include metamyelocytes, myelocytes, and promyelocytes. Blood smears from CBCs yielding IG's will be scanned manually for concordance. If this scan disagrees with the automated IG or if promyelocytes are noted, a manual differential will be performed. Immature Gran Absolute 0.03 0.00 - 0.04 x10(3)/mc L [facility] Blood specimen (specimen) 03/05/2018 6:42 AM EDT 03/05/2018 6:58 AM EDT Narrative Resulting Agency Comment Spec In Lab Laura Romo MD HEMATOLOGY O RDERABLES [facility] [place] [address] * (ABNORMAL) Hemogram (03/05/2018 6:42 AM EDT) White Blood Cell 11.3(H) 4.0 - 9.5 x10(3)/[facility] LABORATORY Red Blood Cell 4.01 4.00 - 5.21 x10(6)/[facility] LABORATORY Hemoglobin 12.8 11.7 - 15.5 gm/dL [facility] Hematocrit 38.3 35.7 - 45.8 % [facility] Mean Cell Volume 95.5(H) 82.6 - 94.4 fL [facility] Mean Cell Hemoglobin 31.9 27.1 - 32.0 pg [facility] Mean Cell Hemoglobin Concentration 33.4 31.7 - 35.0 gm/dL [facility] Platelet 285 145 - 357 x10(3)/[facility]ORY RDW Standard Deviation 45.1 37.0 - 46.0 fL [facility] RDW coefficient of variation 12.8 11.5 - 14.1 % [facility] Mean Platelet Volume 9.8 7.6 - 12.9 fL [facility] NRBC% auto 0.0 % [facility] NRBC Absolute 0.000 0.000 - 0.000 x10(3)/[facility] Blood specimen (specimen) 03/05/2018 6:42 AM EDT 03/05/2018 6:58 AM EDT Narrative Resulting Agency Comment Spec In Lab Laura Romo MD HEMATOLOGY O RDERABLES [facility] [place] [address] * (ABNORMAL) Basic Metabolic Panel (non-fasting) (03/05/2018 6:42 AM EDT) Glucose 128 65 - 199 mg/dL [facility] Comment:Diabetes: >=200 mg/d L plus symptoms Blood Urea Nitrogen 13 8 - 18 mg/dL [facility] Creatinine 0.60(L) 0.70 - 1.20 mg/dL [facility] Sodium 142 135 - 145 mmol/L [facility] Potassium 4.3 3.5 - 5.0 mmol/L [facility] Comment: Please note: ??Patients with WBC >100,000 may have falsely elevated Potassium levels. ??For accurate Potassium quantification in these patients send serum separator tube (gold top) for subsequent determinations. ??Contact the Clinical Chemistry Laboratory if there are any questions. Chloride 103 98 - 107 mmol/L [facility] Carbon Dioxide 27 22 - 31 mmol/L [facility] Anion Gap 12 5 - 15 mmol/L [facility] Calcium 9.1 8.5 - 10.5 mg/dL [facility] Est Glomerular Filtration Rate 105 >=60 mL/min/1. 73 m?? [facility] Comment: The eGFR was calculated using the CKD-EPI equation. As with all creatinine based estimates of kidney function, eGFR values calculated with the CKD-EPI equation are not accurate in patients with acute kidney failure, extremes of body mass or the acutely ill. [email or web address] eGFR 121 >=60 mL/min/1. 73 m?? [facility] Comment: The eGFR was calculated using the CKD-EPI equation. As with all creatinine based estimates of kidney function, eGFR values calculated with the CKD-EPI equation are not accurate in patients with acute kidney failure, extremes of body mass or the acutely ill. [email or web address] Blood specimen (specimen) 03/05/2018 6:42 AM EDT 03/05/2018 6:58 AM EDT Narrative Resulting Agency Comment Spec In Lab Angel Mccullough MD CHEMISTRY ORDERABLES [facility] [place] [address] * SCAN DOC: CEMETERY WORKERS SUPERVISOR (03/05/2018 12:00 AM EDT) Anatomical Region Laterality [...] Mcclendon RN) 0857 (Given - Provider: Shelli Martin, SADAF)1202 (Given - Provider: Shelli Martin, SADAF) aspirin EC tablet 81 mg 81 mg, [...] Recovery, Routine 1206 (Given - Provider: Viridiana Hyatt, SADAF) melatonin tablet 3 mg 3 mg, Oral, [...] Joe Cano CRNA)2300 (Stopped - Provider: Zoran Mcclendon, RN) sodium chloride 0.9% infusion () 100 mL/hr, Intravenous, CONTINUOUS, Starting on Sun03/05/18 at 1230, Until Sun03/05/18 at 2229 1241 (New Bag - Provider: Me belkis Hyatt RN)2059 (New Bag - Provider: Zoran Mcclendon, RN) PRN Medication Order 03/04/2018 03/05/2018 03/06/2018 [...] Viridiana Hyatt RN)1857 (Given - Provider: Iris Weaver, SADAF) iodixanol (VISIPAQUE) 320 mg iodine/mL injection (CANCELED) [...] Shelli Martin, SADAF)1210 (Given - Provider: Shelli Martin, SADAF) lidocaine (XYLOCAINE) 10 mg/mL (1 %) injection [...] Pain, Routine 1234 (Given - Provider: Viridiana Hyatt, SADAF)1937 (Given - Provider: Viridiana Hyatt, SADAF) 0126 (Given - Provider: Zoran Mcclendon RN) [...] patch documented in this encounter Care Teams Light Bulb Replacer Relationship Specialty Start Date End Date Saundra Reddy APRN PCP - General Family Medicine 01/02/18 12/02/18 documented as of this encounter
--- OUTSIDE RECORDS SUMMARY | 2024-03-25 13:06 | XMS_ITS | Encounter Summary ---
Author Organization [facility] Address [facility] [place] [address] Care Team Providers Care Associate Product Manager Name Role Phone Jorge Luisedison Saundra Edison BENTLEY Primary Care Provider [phone] Encounter Details Date Type Department Care Team (Latest Contact Info) Description 07/09/2018 8:00 AM EST Office Visit [place] [address] Radha Emery APRN [facility] [place] [address] Iliac artery stenosis, bilateral; Stenosis of infrarenal [...] hypertension, right renal artery stenosis sp angioplasty [id number], and short distance bilateral buttocks and thigh [...] ND, no palpable pulsatile masses Extremity - Elaine, warm, no ulceration, brisk capillary refill, no [...] AM EST Tech [place] [phone] Jose Barraza 04/04/2024 11:00 AM EST Office Visit [place] [phone] Ayla Davis APRN [facility] [place] [address] documented as of this encounter Results * SHA, legs, multiple levels (12/03/2018 8:28 AM EDT) VB Text Report Department: Vascular Surgery Lab Patient: [id number] (EMILIANA FARMER) CPT: 87765 ICD10: I70.0;I77.1 Referring Physician: RADHA EMERY, SHEREE [...] VASCUBASE 12/03/2018 8:28 AM EDT Radha Emery SOCIAL SERVICE AGENCY DIRECTOR VASCULAR ORDERABLE S VASCUBASE documented in this encounter Visit Diagnoses Diagnosis Iliac artery stenosis, bilateral Stricture of artery Stenosis of infrarenal abdominal aorta due to arteriosclerosis Atherosclerosis of aorta documented in this encounter Care Teams Associate Product Manager Relationship Specialty Start Date End Date Saundra Reddy, SOCIAL SERVICE AGENCY DIRECTOR PCP - General Family Medicine 01/02/18 12/02/18 documented as of this encounter
--- OUTSIDE RECORDS SUMMARY | 2024-03-25 13:06 | XMS_ITS | Encounter Summary ---
Author Organization [facility] [place] [address] Care Team Providers Care Junior Underwriter Name Role Phone Beena Wilkes APRN Primary Care Provider [phone] Encounter Details Date Type Department Care Team (Late st Contact Info) Description 01/23/2019 Telephone [place] [phone] Iris Farmer RN Social History Tobacco Use [...] AM EST Tech [place] [phone] Jose Barraza 04/04/2024 11:00 AM EST Office [place] [address] Ayla Davis APRN [facility] [place] [address] documented as of this encounter Visit Diagnoses Not on filedocumented in this encounter Care Teams Junior Underwriter Relationship Specialty Start Date End Date Beena Wilkes APRN [address] [place] [address] PCP - General Family Medicine 01/13/19 03/02/22 documented as of this encounter
--- OUTSIDE RECORDS SUMMARY | 2024-03-25 13:06 | XMS_ITS | Encounter Summary ---
Author Organization [facility]ending [facility] Address [facility] [place] [address] Care Team Providers Care Tourist Information Assistant Name Role Phone Maureen Saundra Sunil BENTLEY Primary Care Provider [phone] Encounter Details Date Type Department Care Team (Late st Contact Info) Description 07/09/2018 7:30 AM EST Tech Visit [place] [address] Vikash Black [place] Stenosis of aorta; Iliac [...] AM EST Tech [place] [address] Jose Barraza 04/04/2024 11:00 AM EST Office Visit [place] [phone] Ayla Davis APRN [facility] [place] [address] documented as of this encounter Procedures Procedure Name Priority Date/Time Associated Diagnosis Comments SHA, LEGS, MULTIPLE LEVELS Routine 07/09/2018 7:29 AM EST Stenosis of aorta Iliac artery stenosis, bilateral documented in this encounter Results * SHA, legs, multiple levels (07/09/2018 7:29 AM EST) VB Text Report Department: Vascular Surgery Lab Patient: [id number] (EMILIANA FARMER) CPT: 70883 ICD10: I77.1;Q25.3 Referring Physician: RADHA EMERY APRN [...] artery documented in this encounter Care Teams Tourist Information Assistant Relationship Specialty Start Date End Date Saundra Reddy, OPERATING ROOM SPECIALIST PCP - General Family Medicine 01/02/18 12/02/18 documented as of this encounter
--- OUTSIDE RECORDS SUMMARY | 2024-03-25 13:06 | XMS_ITS | Encounter Summary ---
Author Organization Formerly [facility], [facility] [place] [address] Care Team Providers Care Marine Cargo Specialist Name Role Phone Saundra Reddy SHEERE Primary Care Provider [phone] Reason for Visit * Auth/Cert Specialty Diagnoses / Procedures Referred By Beverley t Referred To Contact Diagnoses claudication Procedures PRO ENDOVASC REPAIR DEPLOYMENT [id number] ENDOGRAFT 1 Referral ID Status Reason Start Date Expiration Date Visits Re quested Visits Authorized [id number] 1 1 Encounter Details Date Type Department Care Team (Latest Contact Info) Description 03/05/2018 5:26 AM EDT - 03/06/2018 3:08 PM EDT Hospital [place] [address] Angel Mccullough MD [facility] [place] [place] [address] Intermittent claudication; History of renal stent; Aortoiliac [...] hypertension, right renal artery stenosis sp angioplasty [id number], and short distance bilateral buttocks and thigh [...] in 170s systolic. 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 General Instructions None Future Appointments and Orders Future Appointments and Orders Future Appointments Provider Department Dept Phone 04/15/2018 12:30 PM Azucena Evans [place] Vascular Lab at [facility] Arrive at: Instructional Systems Specialist Area 3V [phone] 04/15/2018 1:00 PM Radha Emery APRN Vascular Surgery at [facility] Arrive at: Instructional Systems Specialist Area 3V [phone] Future Orders Complete By Expires SHA, legs, multiple levels [VAS8 Custom] 04/06/2018 (Approximate) 03/06/2019 Process Instructions: There is no in-house vascular laboratory machinist available on weeknights (5pm-8am), weekends, or holidays. IF THIS IS A REQUEST FOR AN EMERGENT STUDY DURING THOSE HOURS, please have the senior provider responsible for the patient page the Vascular Surgery Fellow/Senior Resident environmental engineering aide to discuss options. Scheduling Instructions: Questions: Indication for study/signs & symptoms: s/p aortic and iliac stent graft placement Question to be answered: bloodflow to feet Which DH location will this be performed?: [place] Discharge References/Attachments: Discharge References/Attachments None Electronically Signed [...] For any problems or questions please call [phone] TOR Broussard, instructional systems designer Nurse Clinician For issues on weeknights after 5pm and weekends please call [phone] and ask for the Vascular Fellow environmental engineering aide. documented in this encounter Medications at Time [...] stent and bilat common iliac stents, left E [employer] DEVELOPER cutdown Int Pt seen on pm rounds [...] MD/GLENNY, PGY-5 Section of Vascular Surgery, Pager [phone] Associated attestation - Angel Mccullough MD - [...] hypertension, right renal artery stenosis sp angioplasty [id number], and short distance bilateral buttocks and thigh [...] in 170s systolic. 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 Successful angioplasty of right renal artery stenosis, probably atherosclerotic in origin. 2. Fibromuscular dysplasia, posterior division left renal artery. Functional Status/Social Hx: Lives w Works at [employer] Smoked 1ppd, quit dec 2017 Drinks 6 [...] Waveform Brachial Artery 170 Common Femoral Artery Maui-Biphasic Popliteal Artery Monophasic Dorsalis Pedis (Ankle) Artery [...] MD/GLENNY, PGY-5 Section of Vascular Surgery, Pager [phone] Associated attestation - Angel Mccullough MD - [...] Figueroa MD - 03/05/2018 12:00 PM EDT [facility] [place] ?? Patient Name: Walker Farmer : [id number] MR#: [id number] ?? Case Date: 03/05/2018 ?? Surgeon: Surgeon(s) and Role: * Angel Mccullough MD - Primary * Judy Figueroa MD - Resident-Civil Design Technician ?? 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 Procedures: Bard Lifestyle 14 x 40 stent in distal-most abdominal aorta ([id number]) 7 x 59 iCast stent graft in right common iliac artery (19268) 7 x 59 iCast stent graft in left common iliac artery (73066) Anesthesia: General ?? Findings: Failure of percutaneous [...] Implant Name Type Inv. Item Serial No. Architectural Engineer Lot No. LRB No. Used Action STENT,LSTAR,VASC,[id number],80CM [id number]) - [id number] IMPLANTS STENT,LSTAR,VASC,[id number],80CM ([id number]) ?? [employer] - CR BARD [id number] N/A 1 Implanted STENT,ICAST,CVR,[id number],80CM ([id number]) - [id number] IMPLANTS STENT,ICAST,CVR,[id number],80CM ([id number]) [id number] [employer] GETINGE GR ?? N/A 1 Wasted STENT,ICAST,CVR,7X59MM,120CM ([id number]) - [id number] IMPLANTS STENT,ICAST,CVR,7X59MM,120CM [id number] [employer] GR ?? Left 1 Implanted STENT,ICAST,CVR,7X59MM,120CM ([id number]) - [id number] IMPLANTS STENT,ICAST,CVR,7X59MM,120CM [id number] [employer] GR ?? Right 1 Implanted ? PRBCs: none (See Anesthesia Record/Report for Other Blood Products) Urine Output: 600 mL ?? Drains: None ?? Disposition: PACU ?? Condition: Stable HPI: 53F former smoker (quit Dec, 2017) with hypertension, right renal artery stenosis sp angioplasty [id number], and short distance bilateral buttocks and thigh [...] in 170s systolic. 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 Heparin was given. Using a stiff Glidewire and NTA catheter we were able to cross the lesions in the iliac and infrarenal aorta and advanced the stiff Glidewire into the descending thoracic part of the aorta. We attempted to proceed the same procedure on the left side. An 18 Ghanaian needle was used to access the left common femoral artery. However despite multiple attempts at access (with 4 attempts at puncturing the artery), due to the small caliber of the vessel we were unable to successfully advance a [place] wire. Therefore at that point we elected [...] artery proximal and distal. With an 18 Ghanaian needle we are able to access the [...] wires through an NTA catheter. The 5 Ghanaian sheaths were exchanged for 25 cm 7 Ghanaian long sheaths. On the left side a [...] placing the common iliac stents. The 7 Ghanaian sheaths were advanced into the infrarenal aorta. [...] Operative Note Patient Name: Walker Farmer : [id number] MR#: [id number] Case Date: 03/05/2018 Surgeon: Surgeon(s) and Role: * Angel Mccullough MD - Primary * Judy Figueroa MD - Resident-Civil Design Technician Preoperative diagnosis: Nearly occlusive abdominal aortic and common iliac plaque causing bilateralintermittent claudication Postoperative diagnosis: Nearly occlusive abdominal aortic and common iliac plaque causing bilateral intermittent claudication Procedures: Bard Lifestyle 14 x 40 stent in distal-most abdominal aorta (97270) 7 x 59 iCast stent graft in right common iliac artery (16365) 7 x 59 iCast stent graft in left common iliac artery (37409) Anesthesia: General Findings: Failure of percutaneous access [...] Implant Name Type Inv. Item Serial No. Architectural Engineer Lot No. LRB No. Used Action STENT,LSTAR,VASC,[id number],80CM ([id number]) - [id number] IMPLANTS STENT,LSTAR,VASC,[id number],80CM ([id number]) [employer] - [employer] BARD [id number] N/A 1 Implanted STENT,ICAST,CVR,8X59MM,80CM ([id number]) - [id number] IMPLANTS STENT,ICAST,CVR,8X59MM,80CM ([id number]) [id number] [employer] N/A 1 Wasted STENT,ICAST,CVR,7X59MM,120CM ([id number]) - [id number] IMPLANTS STENT,ICAST,CVR,7X59MM,120CM [id number] [employer] Left 1 Implanted STENT,ICAST,CVR,7X59MM,120CM ([id number]) - [id number] IMPLANTS STENT,ICAST,CVR,7X59MM,120CM [id number] [employer] Right 1 [...] AM EST Tech [place] [address] Jose Barraza 04/04/2024 11:00 AM EST Office [place] [address] Ayla Davis, SHEREE [facility] [place] [place] [address] documented as of this encounter Procedures Procedure [...] METABOLIC PANEL Routine 03/05/2018 6:42 AM EDT PROFESSOR OF MUSICOLOGY SCAN 03/05/2018 12:00 AM EDT IMPLANTABLE DEVICES SCAN 03/05/2017 12:00 AM EDT documented in this encounter Results * SHA, legs, multiple levels (04/15/2018 12:17 PM EST) VB Text Report Department: Vascular Surgery Lab Patient: [id number] (BRENT FARMERE) CPT: 75587 ICD10: I73.9;I74.09 Referring Physician: ANGEL MCCULLOUGH ?? [...] Text Report Department: Vascular Surgery Lab Patient: [id number] (WALKER FARMER) CPT: 60077 ICD10: I74.09;I73.9 Referring Physician: ANGEL MCCULLOUGH ?? [...] AM EDT) Neutrophil % Manual 81 % [facility] Lymphocyte Manual 17 % [facility] Monocyte Manual 2 % [facility] Neutrophil Absolute (ANC) - Manual 11.9(H) 1.5 - 6.3 x10(3)/[facility] LABORATORY Neutrophil Absolute (ANC) - Automated 11.91(H) 1.70 - 6.10 x10(3)/[facility] LABORATORY Lymph Absolute Manual 2.5 1.0 - 3.6 x10(3)/[facility] LABORATORY Monocyte Absolute Manual 0.3 0.2 - 1.0 x10(3)/[facility] LABORATORY Total Cells Ct 100 [facility] Plat estimate Normal [facility] RBC Morphology Normal [facility] Hyperseg Neutro Present [facility] Blood specimen (specimen) 03/06/2018 4:40 AM EDT 03/06/2018 4:46 AM EDT Narrative Resulting Agency Comment Spec In Lab Judy Figueroa MD HEMATOLOGY ORDERABLE S Performing Organization Address City/State/[facility] Co de Phone Number [facility] [place] [address] * (ABNORMAL) Hemogram (03/06/2018 4:40 AM EDT) White Blood Cell 14.7(H) 4.0 - 9.5 x10(3)/[facility] LABORATORY Red Blood Cell 3.43(L) 4.00 - 5.21 x10(6)/ L [facility] Hemoglobin 11.1(L) 11.7 - 15.5 gm/dL [facility] Hematocrit 32.4(L) 35.7 - 45.8 % [facility] Mean Cell Volume 94.5(H) 82.6 - 94.4 fL [facility] Mean Cell Hemoglobin 32.4(H) 27.1 - 32.0 pg [facility] Mean Cell Hemoglobin Concentration 34.3 31.7 - 35.0 gm/dL [facility] Platelet 236 145 - 357 x10(3)/mc L [facility] RDW Standard Deviation 44.4 37.0 - 46.0 fL [facility] RDW coefficient of variation 13.0 11.5 - 14.1 % [facility] Mean Platelet Volume 9.7 7.6 - 12.9 fL [facility] NRBC% auto 0.0 % [facility] NRBC Absolute 0.000 0.000 - 0.000 x10(3)/mc L [facility] Blood specimen (specimen) 03/06/2018 4:40 AM EDT 03/06/2018 4:46 AM EDT Narrative Resulting Agency Comment Spec In Lab Judy Figueroa MD HEMATOLOGY ORDERABLE S [facility] [place] [address] * (ABNORMAL) Basic Metabolic Panel (non-fasting) (03/06/2018 4:40 AM EDT) Glucose 126 65 - 199 mg/dL [facility] Comment:Diabetes: >=200 mg/d L plus symptoms Blood Urea Nitrogen 8 8 - 18 mg/dL [facility] [...] - 107 mmol/L [facility] Carbon Dioxide 25 22 - 31 mmol/L [facility] Anion Gap 8 5 - 15 mmol/L [facility] Calcium 8.5 8.5 - 10.5 mg/dL [facility] Est Glomerular Filtration Rate 109 >=60 mL/min/1. 73 m?? [facility] Comment: The eGFR was calculated using the CKD-EPI equation. As with all creatinine based estimates of kidney function, eGFR values calculated with the CKD-EPI equation are not accurate in patients with acute kidney failure, extremes of body mass or the acutely ill. [email or web address]/[email or web address]UEnkf eGFR 127 >=60 mL/min/1. 73 m?? [facility] Comment: The eGFR was calculated using the CKD-EPI equation. As with all creatinine based estimates of kidney function, eGFR values calculated with the CKD-EPI equation are not accurate in patients with acute kidney failure, extremes of body mass or the acutely ill. [email or web address]/[facility]kf Blood specimen (specimen) 03/06/2018 4:40 AM EDT 03/06/2018 4:46 AM EDT Narrative Resulting Agency Comment Spec In Lab Angel Mccullough MD CHEMISTRY ORDERABLES Performing Organization Address [facility] Co de Phone Number [facility] [place] [address] * IR OR VASC Aniogram Image Storage Only (03/05/2018 8:45 AM EDT) Narrative [facility] - 03/05/2018 8:45 AM EDT This exam is for storage only and is auto-finalizing. Angel Mccullough MD IMG FILM LIBRARY ORD ERABLES Performing Organization Address [facility] Co de Phone Number [place], [place] * (ABNORMAL) BLOOD GAS 2 ARTERIAL (03/05/2018 8:43 AM EDT) pH, Arterial 7.49(H) 7.35 - 7.45 [facility] PCO2, Arterial 32(L) 35 - 45 mmHg [facility] PO2, Arterial 276(H) 85 - 104 mmHg [facility] Bicarbonate, Arterial 24.0 20.0 - 26.0 mmol/L [facility] Base Excess, Arterial 0.6 -3.0 - 3.0 mmol/L [facility] Hgb Blood Gas 12.7 11.7 - 15.5 gm/dL [facility] Oxyhemoglobin, Arterial 98.2(H) 94.0 - 97.0 % [facility] Carboxyhemoglob in, Arterial 0.8 % [facility] Comment: Nonsmokers: 0.5-1.5% COHB Smokers: Variable, but usually less than 10% Toxic: 20-30% COHB Lethal: Greater than 60% COHB Methemoglobin, Arterial 0.3 <=1.5 % [facility] Na Whole Blood 138 [...] MD POINT OF CARE TEST O RDERABLES [facility] [place] [address] * EKG 12 Lead (03/05/2018 7:04 AM EDT) Ventricular rate 72 BPM MUSE SYSTEM Atrial Rate 72 BPM MUSE SYSTEM P-R Interval 170 ms MUSE SYSTEM QRS Duration 116 ms MUSE SYSTEM Q-T Interval 452 ms MUSE SYSTEM QTC Calculated (Bezet) 494 ms MUSE SYSTEM Calculated P [place] 59 degrees MUSE SYSTEM Calculated R [place] 31 degrees MUSE SYSTEM Calculated T [place] 34 degrees MUSE SYSTEM INTERPRETATION Normal sinus [...] BANK L AB ORDERABLES Performing Organization Address City/[facility]/ZIP Co de Phone Number [facility] [place] [address] * Antibody screen (03/05/2018 6:42 AM EDT) Ab Screen Interp Negative [facility] Expires at [id number] on: 03/08/2018 [facility] Blood specimen (specimen) 03/05/2018 6:42 AM EDT 03/05/2018 6:46 AM EDT Narrative Resulting Agency Comment Spec In Lab Laura Romo MD BLOOD BANK L AB ORDERABLES Performing Organization Address City/[facility]/ZIP Co de Phone Number [facility] [place] [address] * ABO/Rh Typing (03/05/2018 6:42 AM EDT) ABORH Type A Pos [facility] Blood specimen (specimen) 03/05/2018 6:42 AM EDT 03/05/2018 6:46 AM EDT Narrative Resulting Agency Comment Spec In Lab Laura Romo MD BLOOD BANK L AB ORDERABLES Performing Organization Address City/[facility]/ZIP Co de Phone Number [facility] [place] [address] * (ABNORMAL) Differential, Automated (03/05/2018 6:42 AM EDT) Neutrophil % 70.6 % [facility] Neutrophil Absolute 8.01(H) 1.70 - 6.10 x10(3)/ L [facility] Lymph % 22.8 % [facility] Lymphocytes Abs 2.6 0.9 - 3.2 x10(3)/ L [facility] Monocyte % 4.3 % [facility] Monocyte Abs 0.5 0.3 - 0.9 x10(3)/[facility] LABORATORY Eos % 1.6 % [facility] Eosinophils Abs 0.2 0.0 - 0.4 x10(3)/[facility] LABORATORY Basophil % 0.4 % [facility] Baso Absolute 0.0 0.0 - 0.1 x10(3)/[facility] LABORATORY Immature Gran % 0.30 % [facility] Comment: Immature granulocytes(IG's)percentage and absolute count will include metamyelocytes, myelocytes, and promyelocytes. Blood smears from CBCs yielding IG's will be scanned manually for concordance. If this scan disagrees with the automated IG or if promyelocytes are noted, a manual differential will be performed. Immature Gran Absolute 0.03 0.00 - 0.04 x10(3)/ L [facility] Blood specimen (specimen) 03/05/2018 6:42 AM EDT 03/05/2018 6:58 AM EDT Narrative Resulting Agency Comment Spec In Lab Laura Romo MD HEMATOLOGY O RDERABLES Performing Organization Address City/[facility]/ZIP Co de Phone Number [facility] [place] [address] * (ABNORMAL) Hemogram (03/05/2018 6:42 AM EDT) [facility] White Blood Cell 11.3(H) 4.0 - 9.5 x10(3)/[facility] LABORATORY Red Blood Cell 4.01 4.00 - 5.21 x10(6)/[facility] LABORATORY Hemoglobin 12.8 11.7 - 15.5 gm/dL [facility] Hematocrit 38.3 35.7 - 45.8 % [facility] Mean Cell Volume 95.5(H) 82.6 - 94.4 fL [facility] Mean Cell Hemoglobin 31.9 27.1 - 32.0 pg [facility] Mean Cell Hemoglobin Concentration 33.4 31.7 - 35.0 gm/dL [facility] Platelet 285 145 - 357 x10(3)/[facility] LABORATORY RDW Standard Deviation 45.1 37.0 - 46.0 [facility] LABORATORY RDW coefficient of variation 12.8 11.5 - 14.1 % [facility] Mean Platelet Volume 9.8 7.6 - 12.9 [facility] LABORATORY NRBC% auto 0.0 % [facility] NRBC Absolute 0.000 0.000 - 0.000 x10(3)/[facility] LABORATORY Blood specimen (specimen) 03/05/2018 6:42 AM EDT 03/05/2018 6:58 AM EDT Narrative Resulting Agency Comment Spec In Lab Laura Romo MD HEMATOLOGY O RDERABLES [facility] [place] [address] * (ABNORMAL) Basic Metabolic Panel (non-fasting) (03/05/2018 6:42 AM EDT) Glucose 128 65 - 199 mg/dL [facility] Comment:Diabetes: >=200 mg/d L plus symptoms Blood Urea Nitrogen 13 8 - 18 mg/dL [facility] [...] - 107 mmol/L [facility] Carbon Dioxide 27 22 - 31 mmol/L [facility] Anion Gap 12 5 - 15 mmol/L [facility] Calcium 9.1 8.5 - 10.5 mg/dL [facility] Est Glomerular Filtration Rate 105 >=60 mL/min/1. 73 m?? [facility] Comment: The eGFR was calculated using the CKD-EPI equation. As with all creatinine based estimates of kidney function, eGFR values calculated with the CKD-EPI equation are not accurate in patients with acute kidney failure, extremes of body mass or the acutely ill. [email or web address] eGFR 121 >=60 mL/min/1. 73 m?? [facility] Comment: The eGFR was calculated using the CKD-EPI equation. As with all creatinine based estimates of kidney function, eGFR values calculated with the CKD-EPI equation are not accurate in patients with acute kidney failure, extremes of body mass or the acutely ill. [email or web address] Blood specimen (specimen) 03/05/2018 6:42 AM EDT 03/05/2018 6:58 AM EDT Narrative Resulting Agency Comment Spec In Lab Angel Mccullough MD [place] [address] * SCAN DOC: PROFESSOR OF MUSICOLOGY (03/05/2018 12:00 AM EDT) Anatomical Region Laterality [...] on Sun03/07/18 at 0900, Until Discontinued, Routine HYDROmorphone (DILAUDID) [...] on Sun03/05/18 at 2145, Until Discontinued, Routine 214 (Not Given - Provider: Jenna Adhikari RN [...] 1241 (New Bag - Provider: Me belkis Hyatt, SADAF)2059 (New Bag - Provider: Zoran Mcclendon, SADAF) [...] Procedure), Routine 0726 (Given - Provider: Aishwarya Floyd, SADAF) senna-docusate (PERICOLACE) 8.6-50 mg per tablet 2 [...] patch documented in this encounter Care Teams Marine Cargo Specialist Relationship Specialty Start Date End Date Saundra Reddy APRN PCP - General Family Medicine 01/02/18 12/02/18 documented as of this encounter
--- OUTSIDE RECORDS SUMMARY | 2024-03-25 13:06 | XMS_ITS | Encounter Summary ---
Author Organization [facility] Address [facility] [place] [address] Care Team Providers Care Department Traffic Freight Router Name Role Phone Beena Wilkes APRN Primary Care Provider [phone] Encounter Details Date Type Department Care Team (Latest Contact Info) Description 01/28/2019 10:20 AM EDT Clinical Support [place] [address] PAD (peripheral artery disease) Social [...] AM EST Tech [place] [phone] Jose Barraza 04/04/2024 11:00 AM EST Office Visit [place] [address] Ayla Davis APRN [facility] DR VASCULAR SURGERY [place], [place] [id number] documented as of this encounter Procedures Procedure [...] (Bezet) 477 ms MUSE SYSTEM Calculated P [place] 64 degrees MUSE SYSTEM Calculated R [place] 60 degrees MUSE SYSTEM Calculated T [place] -39 degrees MUSE SYSTEM INTERPRETATION Normal sinus [...] PM EDT Judy Gilbert MD ECG ORDERABLES [employer] SYSTEM documented in this encounter Visit Diagnoses Diagnosis PAD (peripheral artery disease) Peripheral vascular disease, unspecified documented in this encounter Care Teams Department Traffic Freight Router Relationship Specialty Start Date End Date Beena Wilkes, KID CLUB ATTENDANT [address] [facility] [place] [address] PCP - General Family Medicine 01/13/19 03/02/22 documented as of this encounter
--- OUTSIDE RECORDS SUMMARY | 2024-03-25 13:06 | XMS_ITS | Encounter Summary ---
Author Organization [facility] [place] [address] Care Team Providers Care Director Of Customer Service Name Role Phone KyleBeena cline SHEREE Primary Care Provider [phone] Reason for Referral * Diagnostic Test (Routine) - Closed Specialty Diagnoses / Procedures Referred By Contac t Referred To Contact Radiology Diagnoses PAD (peripheral artery disease) Procedures NM Pharmacologic Stress Myocardial Perfusion Rashawn Dawn MD [facility] [place] [address] [place] [address] Referral ID Status Reason Start Date Expiration Date V isits Requested Visits Authorized [id number] Closed Specialty Service Requested 01/28/2019 01/28/2020 1 1 * Diagnostic Test (Routine) - Closed Specialty Diagnoses / Procedures Referred By Contac t Referred To Contact Radiology Diagnoses PAD (peripheral artery disease) Procedures NM Pharmacologic Stress CT Component Rashawn Dawn MD [facility] [place] [address] [place] [address] Referral ID Status Reason Start Date Expiration Date V isits Requested Visits Authorized [id number] Closed Specialty Service Requested 01/28/2019 01/28/2020 1 1 Reason for Visit * Reason Comments Peripheral Arterial Disease Pre-op Exam Encounter Details Date Type Department Care Team (Latest Contact Info) Description 01/28/2019 9:30 AM EDT [facility] [place] [address] Rashawn Dawn MD [facility] [place] [address] PAD (peripheral artery disease); Hypertension, unspecified type; [...] from the original note were not included. [facility] [place] [address] CARDIOVASCULAR MEDICINE OUTPATIENT CONSULTATION Emiliana Suresh Farmer [id number] 01/28/2019 REFERRING PROVIDER: Beena Wilkes CHIEF COMPLAINT: [...] questions or concerns. Rashawn Dawn MD, MPH, [facility] Cardiovascular Maintenance Data AnalystPathology [place] [address] documented in this encounter Plan of Treatment Upcoming Encounters Date Type Department Care Team (Late st Contact Info) Description 04/04/2024 10:30 AM EST Tech Visit [place] [address] Jose Barraza 04/04/2024 11:00 AM EST Office Visit [place] [address] Ayla Davis APRN [facility] [place] [address] documented as of this encounter Results * [...] contact the number below. Rashawn Dawn MD [facility] ORDERABLES * Nuclear Pharmacologic Stress Cardiology (03/06/2019 [...] contact the number below. Rashawn Dawn MD [facility] [place] ORDERABLES documented in this encounter Visit Diagnoses Diagnosis PAD (peripheral artery disease) Peripheral vascular disease, unspecified Hypertension, unspecified type Renal artery stenosis Atherosclerosis of renal artery Pre-operative cardiovascular examination PAD (peripheral artery disease) Peripheral vascular disease, unspecified PAD (peripheral artery disease) Peripheral vascular disease, unspecified documented in this encounter Care Teams Director Of Customer Service Relationship Specialty Start Date End Date Beena Wilkes, SPA MANAGER [address] [place] [address] PCP - General Family Medicine 01/13/19 03/02/22 documented as of this encounter
--- OUTSIDE RECORDS SUMMARY | 2024-03-25 13:06 | XMS_ITS | Encounter Summary ---
Author Organization [facility] Address [facility] [place] [address] Care Team Providers Care Embroidery Patternmaker Name Role Phone Jorge LuisSaundra hogan Sunil BENTLEY Primary Care Provider [phone] Encounter Details Date Type Department Care Team (Late st Contact Info) Description 02/06/2018 Orders [place] [address] Angela House RN Intermittent claudication Social History [...] EST Tech Visit [place] [address] Jose Barraza 04/04/2024 11:00 AM EST Office [place] [address] Ayla Davis, SHOP MANAGER [facility] [place] [address] Scheduled Orders Name Type Priority Associated Diagnoses Orde r Schedule EVG, AORTA/ILIAC ART RPR [id number] ENDOGRAFT; ANEURX Procedures Routine One Time for [...] (Bezet) 494 ms MUSE SYSTEM Calculated P [place] 59 degrees MUSE SYSTEM Calculated R [place] 31 degrees MUSE SYSTEM Calculated T [place] 34 degrees MUSE SYSTEM INTERPRETATION Normal sinus rhythm Left bundle branch block Abnormal ECG No previous ECGs available Confirmed by MD YUMIKO, VAMSI ([id number]) on 03/05/2018 8:32:44 AM MUSE SYSTEM 03/05/2018 7:04 AM EDT 03/05/2018 8:32 AM EDT Yves Vegas MD ECG ORDERABLES MUSE SYSTEM documented in this encounter Visit Diagnoses Diagnosis Intermittent claudication Peripheral vascular disease, unspecified documented in this encounter Care Teams Embroidery Patternmaker Relationship Specialty Start Date End Date Saundra Reddy APRN PCP - General Family Medicine 01/02/18 12/02/18 documented as of this encounter
--- OUTSIDE RECORDS SUMMARY | 2024-03-25 13:06 | XMS_ITS | Encounter Summary ---
Author Organization [facility] [place] [address] Care Team Providers Care Status Controller Name Role Phone Jorge Luisedison Saundra Edison BENTLEY Primary Care Provider [phone] Encounter Details Date Type Department Care Team (Latest Contact Info) Description 04/15/2018 11:11 AM EST - 04/15/2018 11:59 PM EST Hospital En[place] [address] Vikash Black [place] Intermittent claudication; Aortoiliac occlusive [...] Tech [place] [address] Madi Jose L 04/04/2024 11:00 AM EST Office [place] [address] Ayla Davis, SALES OPERATIONS LEAD [facility] [place] [address] documented as of this encounter Procedures Procedure Name Priority Date/Time Associated Diagnosis Comments SHA, LEGS, MULTIPLE LEVELS Routine 04/15/2018 12:17 PM EST Intermittent claudication Aortoiliac occlusive disease documented in this encounter Results * SHA, legs, multiple levels (04/15/2018 12:17 PM EST) VB Text Report Department: Vascular Surgery Lab Patient: [id number] (SMOOTHBRENTE) CPT: 20390 ICD10: I73.9;I74.09 Referring Physician: ANGEL VEGAS ?? [...] aorta documented in this encounter Care Teams Status Controller Relationship Specialty Start Date End Date Saundra Reddy APRN PCP - General Family Medicine 01/02/18 12/02/18 documented as of this encounter
--- OUTSIDE RECORDS SUMMARY | 2024-03-25 13:06 | XMS_ITS | Encounter Summary ---
Author Organization [facility] Address [facility] [place] [address] Care Team Providers Care Enzyme Chemist Name Role Phone None Primary Care Provider Unavailabl e Encounter Details Date Type Department Care Team (Late st Contact Info) Description 12/04/2018 Orders [place] [address] Emym Green, LAST MODEL DEPARTMENT SUPERVISOR Social History Tobacco Use Types Packs/Day Years [...] [place] [address] Jose Barraza 04/04/2024 11:00 AM EST Office Visit [place] [address] Ayla Davis APRN [facility] [place] [address] documented as of this encounter Visit Diagnoses Not on filedocumented in this encounter Care Teams Enzyme Chemist Relationship Specialty Start Date End Date None None PCP - General 12/03/18 01/12/19 documented as of this encounter
--- OUTSIDE RECORDS SUMMARY | 2024-03-25 13:06 | XMS_ITS | Encounter Summary ---
Author Organization [facility] Address [facility] [place] [address] Care Team Providers Care Tax Clerk Name Role Phone KyleBeena cline SHEREE Primary Care Provider [phone] Reason for Visit * Reason Comments Medication Refill Encounter Details Date Type Department Care Team (Late st Contact Info) Description 04/28/2018 Refill [place] [address] Yves Treviño MD [facility] [place] [address] Social History Tobacco Use Types Packs/Day Years [...] AM EST Tech [place] [address] Jose Barraza 04/04/2024 11:00 AM EST Office Visit [place] [address] Ayla Davis APRN [facility] [place] [address] documented as of this encounter Visit Diagnoses Not on filedocumented in this encounter Care Teams Tax Clerk Relationship Specialty Start Date End Date Beena Wilkes, NET MOBILE DEVELOPER [address] [place] [address] PCP - General Family Medicine 01/13/19 03/02/22 documented as of this encounter
--- OUTSIDE RECORDS SUMMARY | 2024-03-25 13:06 | XMS_ITS | Encounter Summary ---
Author Organization [facility] Address [facility] [place] [address] Care Team Providers Care Narrow Fabrics Weaver Name Role Phone KyleBeena cline SHEREE Primary Care Provider [phone] Encounter Details Date Type Department Care Team (Latest Contact Info) Description 01/17/2019 11:55 AM EDT Laboratory Appointment Lab [address] [place] [address] PVD (peripheral vascular disease) with claudication Social [...] AM EST Tech [place] [address] Jose Barraza 04/04/2024 11:00 AM EST Office Visit [place] [address] Ayla Davis APRN [facility] [place] [address] documented as of this encounter Procedures Procedure Name Priority Date/Time Associated Diagnosis Comments HC VENIPUNCTURE STAT 01/17/2019 11:45 AM EDT PVD (peripheral vascular disease) with claudication documented in this encounter Results * (ABNORMAL) Creatinine (01/17/2019 11:45 AM EDT) Creatinine 0.61(L) 0.70 - 1.20 mg/dL [facility] Est Glomerular Filtration Rate 104 >=60 mL/min/1.7 3 m?? [facility] Comment: The eGFR was calculated using the CKD-EPI equation. As with all creatinine based estimates of kidney function, eGFR values calculated with the CKD-EPI equation are not accurate in patients with acute kidney failure, extremes of body mass or the acutely ill. [email or web address] eGFR 120 >=60 mL/min/1.7 3 m?? [facility] Comment: The eGFR was calculated using the CKD-EPI equation. As with all creatinine based estimates of kidney function, eGFR values calculated with the CKD-EPI equation are not accurate in patients with acute kidney failure, extremes of body mass or the acutely ill. [email or web address] Blood specimen (specimen) 01/17/2019 11:45 AM EDT 01/17/2019 11:50 AM EDT Narrative Resulting Agency Comment Spec In Lab Laura Quiros APRN CHEMISTRY ORDERABL ES [facility] [place] [address] documented in this encounter Visit Diagnoses Diagnosis PVD (peripheral vascular disease) with claudication Peripheral vascular disease, unspecified documented in this encounter Care Teams Narrow Fabrics Weaver Relationship Specialty Start Date End Date Beena Wilkes APRN [address] [place] [address] PCP - General Family Medicine 01/13/19 03/02/22 documented as of this encounter
--- OUTSIDE RECORDS SUMMARY | 2024-03-25 13:07 | XMS_ITS | Encounter Summary ---
Author Organization [facility] [place] [address] Care Team Providers Care Formula Weigher Name Role Phone Saundra Reddy APRN Primary Care Provider [phone] Reason for Visit * Consultation (Urgent) - Closed Specialty Diagnoses / Procedures Referred By Contwilberto t Referred To Contact Vascular Surgery Diagnoses leg pain renal artery stenosis Saundra Reddy APRN [address] [place] [address] [facility] Vascular Lab [address] [place] [address] Referral ID Status Reason Start Date Expiration Date V isits Requested Visits Authorized [id number] Closed Consult, Test & Treat Connection Center 12/31/2017 12/31/2018 2 2 Encounter Details Date Type Department Care Team (Latest Contact Info) Description 01/02/2018 7:49 AM EDT - 01/02/2018 11:59 PM EDT Hospital En[place] [address] Azucena Evans [place] Intermittent claudication; [...] AM EST Tech [place] [address] Jose Barraza 04/04/2024 11:00 AM EST Office Visit [place] [address] Ayla Davis, SHEREE [facility] [place] [address] documented as of this encounter Procedures Procedure Name Priority Date/Time Associated Diagnosis Comments RENAL DUPLEX COMPLETE Routine 01/02/2018 8:00 AM EDT History of renal stent SHA, LEGS, MULTIPLE LEVELS Routine 01/02/2018 8:00 AM EDT Intermittent claudication documented in this encounter Results * Duplex Study Renal Arteries, Bilat (01/02/2018 8:00 AM EDT) VB Text Report Department: Vascular Surgery Lab Patient: [id number] (SMOOTH EMILIANA) CPT: 01947 ICD10: Z98.890;I70.1 Referring Physician: PETE ÁLVAREZ ?? Phone: Indications: ?? History renal artery [...] Report VASCU[facility] 01/02/2018 8:00 AM EDT Pete Álvarez MD VASCULAR ORDERA BLES VASCUBASE * SHA, legs, multiple levels (01/02/2018 8:00 AM EDT) VB Text Report Department: Vascular Surgery Lab Patient: [id number] (EMILIANA REBOLLAR) CPT: 56313 ICD10: I70.213;I73.9 Referring Physician: PETE ÁLVAREZ ?? Phone: Indications: ??Claudication Diabetes mellitus: No [...] Brachial Artery ?170 ? Common Femoral Artery ?Bastrop-Biphasi c ?? Popliteal Artery ? Monophasic ? [...] Report [facility] 01/02/2018 8:00 AM EDT Pete Álvarez MD [facility] documented in this encounter Visit Diagnoses Diagnosis Intermittent claudication Peripheral vascular disease, unspecified History of renal stent documented in this encounter Care Teams Formula Weigher Relationship Specialty Start Date End Date Saundra Reddy, PLATE AND WELD INSPECTOR PCP - General Family Medicine 01/02/18 12/02/18 documented as of this encounter
--- OUTSIDE RECORDS SUMMARY | 2024-03-25 13:07 | XMS_ITS | Encounter Summary ---
Author Organization [facility] Address [facility] [place] [address] Care Team Providers Care Electric Lift Truck Driver Name Role Phone Saundra Reddy Sunil BENTLEY Primary Care Provider [phone] Reason for Referral * Diagnostic Test (Routine) - Closed Specialty Diagnoses / Procedures Referred By Contac t Referred To Contact Radiology Diagnoses Atherosclerosis of [place] artery of both lower extremities with intermittent claudication Procedures CT Angiogram Aorta Lower Extremity Runoff Lesley Serrano [place] [facility] [place] [address] [facility] [place] [address] Referral ID Status Reason Start Date Expiration Date V isits Requested Visits Authorized [id number] Closed Specialty Service Requested 01/07/2018 02/23/2018 1 1 Encounter Details Date Type Department Care Team (Late st Contact Info) Description 01/07/2018 Orders [place] [address] Lesley Serrano [place] [facility] [place] [address] Atherosclerosis of [place] artery of both lower extremities with intermittent [...] AM EST Tech [place] [address] Jose Barraza 04/04/2024 11:00 AM EST Office Visit [place] [address] Ayla Davis APRN [facility] [place] [address] documented as of this encounter Results * [...] of the remainder. 3. ??Patent bilateral three-vessel txljq-kjr-wqic runoff to the foot ?? 4. ??Remainder [...] of the remainder. 3. Patent bilateral three-vessel ejgwx-odk-mlcb runoff to the foot 4. Remainder of [...] EDT) Creatinine 0.56(L) 0.70 - 1.20 mg/dL [facility] Est Glomerular Filtration Rate 108 >=60 mL/min/1.7 3 m?? [facility] Comment: The eGFR was calculated using the CKD-EPI equation. As with all creatinine based estimates of kidney function, eGFR values calculated with the CKD-EPI equation are not accurate in patients with acute kidney failure, extremes of body mass or the acutely ill. [email or web address] [email or web address] eGFR 125 >=60 mL/min/1.7 3 m?? [facility] Comment: The eGFR was calculated using the CKD-EPI equation. As with all creatinine based estimates of kidney function, eGFR values calculated with the CKD-EPI equation are not accurate in patients with acute kidney failure, extremes of body mass or the acutely ill. [email or web address] Blood specimen (specimen) 01/08/2018 9:16 AM EDT 01/08/2018 9:25 AM EDT Narrative Resulting Agency Comment Spec In Lab Consuelo Toledo MD CHEMISTRY ORDERABLES [facility] [place] [address] documented in this encounter Visit Diagnoses Diagnosis Atherosclerosis of [place] artery of both lower extremities with intermittent claudication Atherosclerosis of [place] arteries of the extremities with intermittent claudication Atherosclerosis of [place] artery of both lower extremities with intermittent claudication Atherosclerosis of [place] arteries of the extremities with intermittent claudication documented in this encounter Care Teams Electric Lift Truck Driver Relationship Specialty Start Date End Date Saundra Reddy APRN PCP - General Family Medicine 01/02/18 12/02/18 documented as of this encounter
--- OUTSIDE RECORDS SUMMARY | 2024-03-25 13:07 | XMS_ITS | Encounter Summary ---
Author Organization [facility] Address [facility] [place] [address] Care Team Providers Care Educational Aid Name Role Phone Saundra Reddy APRN Primary Care Provider [phone] Reason for Visit * Consultation (Urgent) - Closed Specialty Diagnoses / Procedures Referred By Contwilberto t Referred To Contact Vascular Surgery Diagnoses leg pain renal artery stenosis Saundra Reddy APRN [address] [place] [address] [facility] Vascular Lab [address], [place] [address] Referral ID Status Reason Start Date Expiration Date V isits Requested Visits Authorized [id number] Closed Consult, Test & Treat Connection Center 12/31/2017 12/31/2018 2 2 Encounter Details Date Type Department Care Team (Late st Contact Info) Description 01/08/2018 8:30 AM EDT Office [place] [address] Lesley Serrano PA [facility] [place] [address] Intermittent claudication; Atherosclerosis of [place] artery of both lower extremities with intermittent [...] or tissue loss. 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 Common Femoral Artery ?Swisher- Biphasic ?? Popliteal Artery ? Monophasic ? [...] AM EST Tech [place] [address] Jose Barraza 04/04/2024 11:00 AM EST Office [place] [address] Ayla Davis, WHITTLING ROOM OPERATOR [facility] [place] [address] Scheduled Orders Name Type Priority Associated Diagnoses Orde r Schedule Creatinine Lab Routine Intermittent claudication Expected: 01/08/2018 (Approximate), Expires: 01/08/2019 documented as of this encounter Procedures Procedure Name Priority Date/Time Associated Diagnosis Comments CREATININE Routine 01/08/2018 9:16 AM EDT Atherosclerosis of [place] artery of both lower extremities with intermittent claudication documented in this encounter Results * (ABNORMAL) Creatinine (01/08/2018 9:16 AM EDT) Creatinine 0.56(L) 0.70 - 1.20 mg/dL [facility] Est Glomerular Filtration Rate 108 >=60 mL/min/1.7 3 m?? [facility] Comment: The eGFR was calculated using the CKD-EPI equation. As with all creatinine based estimates of kidney function, eGFR values calculated with the CKD-EPI equation are not accurate in patients with acute kidney failure, extremes of body mass or the acutely ill. [email or web address] eGFR 125 >=60 mL/min/1.7 3 m?? [facility] Comment: The eGFR was calculated using the CKD-EPI equation. As with all creatinine based estimates of kidney function, eGFR values calculated with the CKD-EPI equation are not accurate in patients with acute kidney failure, extremes of body mass or the acutely ill. [email or web address] Blood specimen (specimen) 01/08/2018 9:16 AM EDT 01/08/2018 9:25 AM EDT Narrative Resulting Agency Comment Spec In Lab Consuelo Toledo MD CHEMISTRY ORDERABLES [facility] [place] [address] documented in this encounter Visit Diagnoses Diagnosis Intermittent claudication Peripheral vascular disease, unspecified Atherosclerosis of [place] artery of both lower extremities with intermittent claudication Atherosclerosis of marsh[place] arteries of the extremities with intermittent claudication documented in this encounter Care Teams Educational Aid Relationship Specialty Start Date End Date Saundra Reddy APRN PCP - General Family Medicine 01/02/18 12/02/18 documented as of this encounter
--- OUTSIDE RECORDS SUMMARY | 2024-03-25 13:07 | XMS_ITS | Encounter Summary ---
Author Organization [facility] Address [facility] [place] [address] Care Team Providers Care Balance Staff Inspector Name Role Phone Saundra Reddy APRN Primary Care Provider [phone] Encounter Details Date Type Department Care Team (Late st Contact Info) Description 01/09/2018 Orders [place] [address] Emmy Green, AGENCY LEGAL COUNSEL Intermittent claudication; History of renal stent Social [...] AM EST Tech [place] [address] Jose Barraza 04/04/2024 11:00 AM EST Office [place] [address] Ayla Davis APRN [facility] [place] [address] documented as of this encounter Visit Diagnoses Diagnosis Intermittent claudication Peripheral vascular disease, unspecified History of renal stent documented in this encounter Care Teams Balance Staff Inspector Relationship Specialty Start Date End Date Saundra Reddy APRN PCP - General Family Medicine 01/02/18 12/02/18 documented as of this encounter
--- OUTSIDE RECORDS SUMMARY | 2024-03-25 13:07 | XMS_ITS | Encounter Summary ---
Author Organization [facility] Address [facility] [place] [address] Care Team Providers Care Manager Data Center Name Role Phone Risa Richards APRN Primary Care Provider [phone] Encounter Details Date Type Department Care Team (Late st Contact Info) Description 12/31/2017 Orders [place] [phone] Emmy Green, SYSTEM MANAGER Intermittent claudication; History of renal stent Social [...] AM EST Tech [place] [address] Jose Barraza 04/04/2024 11:00 AM EST Office [place] [address] Ayla Davis APRN [facility] [place] [address] documented as of this encounter Results * Duplex Study Renal Arteries, Bilat (01/02/2018 8:00 AM EDT) Text Report Department: Vascular Surgery Lab Patient: [id number] (EMILIANA FARMER) CPT: 59655 ICD10: Z98.890;I70.1 Referring Physician: PETE GILBERT ?? [...] AM EDT Pete Gilbert MD VASCULAR ORDERA [facility] * SHA, legs, multiple levels (01/02/2018 8:00 AM EDT) VB Text Report Department: Vascular Surgery Lab Patient: [id number] (SMOOTH EMILIANA) CPT: 03506 ICD10: I70.213;I73.9 Referring Physician: PETE GILBERT ?? [...] Brachial Artery ?170 ? Common Femoral Artery ?[place] ?? Popliteal Artery ? Monophasic ? [...] AM EDT Pete Gilbert MD VASCULAR ORDERA [facility] documented in this encounter Visit Diagnoses Diagnosis Intermittent claudication Peripheral vascular disease, unspecified History of renal stent documented in this encounter Care Teams Manager Data Center Relationship Specialty Start Date End Date Risa Richards APRN PCP - General Family Medicine 12/31/17 01/01/18 documented as of this encounter
[2024-03-25 14:46] LABS: HCT 36.2 % (36.0-46.0); HGB 12.1 g/dL (11.2-15.7); MCH 30.9 pg (27.0-33.0); MCHC 33.4 % (32.0-36.0); MCV 93 fL (80-95); MPV 9.6 fL (8.0-11.0); Platelet Count 374 10^3/uL (130-400); RBC 3.91 10^6/uL (3.93-5.22); RDW-SD 47.4 fL; WBC 6.41 10^3/uL (4.4-10.8)
[2024-03-25 14:56] LABS: ALT 26 U/L (14-59); AST 23 U/L (15-37); Alkaline Phosphatase 104 U/L (46-116); BUN 15 mg/dL (7-18); Bilirubin, Total 0.32 mg/dL (0.2-1.0); Calcium 9.1 mg/dL (8.5-10.1); Chloride 105 mmol/L (98-107); Glucose 109 mg/dL (74-106); Potassium 4.9 mmol/L (3.5-5.1); Sodium 142 mmol/L (136-145); Total Protein 7.7 g/dL (6.4-8.2)
[2024-03-25 15:11] LABS: Hemoglobin A1C 6.6 % (<5.7)
== END 2024-03-25 13:03 | disposition home or self-care (01) ==
LOC: NCHCN 13:02
PROVIDERS: PCP Nurse Practitioner Family; Visit Provider Nurse Practitioner Family
DX: R73.03 Prediabetes (principal); L03.115 Cellulitis of right lower limb
CPT/HCPCS: 80053; 85027; 83036

== ENCOUNTER 2024-04-09 15:18 | Outpatient (CLI) | payer MEDICAID, SELFPAY ==
--- NOTE | 2024-04-09 14:30 | DI.RAD_ITS ---
Exam(s) XR ELBOW RT LIMITED EXAM: XR ELBOW RT LIMITED CLINICAL HISTORY: RIGHT ELBOW PAIN. TECHNIQUE: 2D digital imaging was performed. Two views. COMPARISON: No exams were available for comparison FINDINGS: BONES: No acute fracture is present. No bony destructive lesion is seen. Minimal spurring at the cor onoid process. JOINTS: The elbow is normally aligned. No joint effusion is seen. SOFT TISSUE: Normal. IMPRESSION: Minimal spurring at the coronoid process. DATA REPOSITORY: RADIATION DOSE DELIVERED:
== END 2024-04-09 15:19 | disposition home or self-care (01) ==
LOC: DIORS 15:18
PROVIDERS: PCP Nurse Practitioner Family; Visit Provider Student in an Organized Health Care Education/Training Program
DX: M77.11 Lateral epicondylitis, right elbow (principal)
CPT/HCPCS: 73070

== ENCOUNTER 2024-04-10 14:58 | Outpatient (CLI) | payer MEDICAID, SELFPAY ==
--- OUTSIDE RECORDS SUMMARY | 2024-04-10 14:59 | XMS_ITS | Encounter Summary ---
Author Organization [facility] [place] [address] Care Team Providers Care Rn Building Name Role Phone Nancy Alfred APRN Primary Care Provider [phone] Reason for Referral * Diagnostic Test (Routine) - Authorized Specialty Diagnoses / Procedures Referred By Contac t Referred To Contact Diagnoses S/P aortobifemoral bypass surgery Aortoiliac occlusive disease Procedures SHA, legs, multiple levels Ayla Schmitt APRN [facility] [place] [address] [facility] [address] [address] Referral ID Status Reason Start Date Expiration Date Visits Requested Visits Authorized [id number] Authorized Specialty Service Requested 4 04/04/2025 1 1 Encounter Details Date Type Department Care Team (Latest Contact Info) Description 04/04/2024 11:00 AM EST Office [place] [phone] Ayla Schmitt BURRER MARKER AXLE [facility] [place] [address] S/P aortobifemoral bypass surgery; Aortoiliac occlusive disease [...] Sign Reading Time Taken Comments Blood Pressure 145/78 04/04/2024 10:53 AM EST Pulse 73 04/04/2024 10:53 AM EST Temperature - - Respiratory Rate - - Oxygen Saturation - - Inhaled Oxygen Concentration - - Weight 45.4 kg (100 lb) 04/04/2024 10:53 AM EST Height 157.5 cm (5' 2) 04/04/2024 10:53 AM EST Body Mass Index 18.29 04/04/2024 10:53 AM EST documented in this encounter Progress Notes * Ayla Schmitt, BURRER MARKER AXLE - 04/04/2024 11:00 AM EST Vascular Follow-Up Reason for Visit: Emiliana Farmer is a 59 y.o. female presenting for PAD follow up. HPI: 59 y.o. female with PMH: PAD s/p below procedures, HTN, depression, gout. Ms. Farmer presents to clinic for routine follow up. She continues to experience stable, chronic pain that she reports has been present since her surgery and sounds like it is mostly nerve pain. She can walk a 1/4 mile slowly before she experiences pain. She denies rest pain and tissue loss. She continues to have nerve pain, managed by her PCP. She had quit smoking in 06/2023, but started smoking again (4 daily) about 3 months ago. She is very frustrated that her surgery in 2019 did not relieve all her pain. Patient denies chest pain, claudication, edema, SOB. Patient denies stroke symptoms: numbness, tingling, weakness of extremities, facial drooping, slurred speech, new vision loss or change in vision.Patient endorses daily ASA and statin. Prior Vascular [...] Intermittent claudication I73.9 History of renal stent [id number] Hypertension I10 Aortoiliac occlusive disease I74.09 Drinks beer Z78.9 Depression F32.A Gout M10.9 PAD (peripheral artery disease) I73.9 Medications: Current Outpatient Medications on File Prior to Visit Medication Sig Dispense Refill cephALEXin (Keflex) 500 mg capsule TAKE 1 CAPSULE BY MOUTH THREE TIMES DAILY FOR 10 DAYS DIRECTED metoproloL tartrate (Lopressor) 25 mg tablet take 1 tablet by mouth twice daily as directed lisinopriL (Zestril) 10 mg tablet Take 1 tablet by mouth Daily at Noon. gabapentin (Neurontin) 300 mg capsule Take 300 mg by mouth 3 times daily. atorvastatin (LIPITOR) 40 mg Tablet Take 1 tablet by mouth daily. 90 tablet 3 amLODIPine (NORVASC) 10 mg Tablet Take 1 tablet by mouth daily. 90 tablet 3 aspirin 81 mg Tablet, Delayed Release (E.C.) Take 81 mg by mouth daily. nicotine polacrilex (COMMIT) [address] 2 mg inside cheek as needed for Smoking cessation. acetaminophen (TYLENOL) 325 mg Tablet Take 2 tablets by mouth every 6 hours as needed for Pain. (Patient not taking: Reported on 03/03/2022) 30 tablet 1 hydroCHLOROthiazide (HYDRODIURIL) 12.5 mg Tablet Take 2 tablets by mouth daily. (Patient not taking: Reported on 04/04/2024) 90 tablet 0 nicotine (NICODERM CQ) 21 mg/[address] 21 patches onto the skin daily. 0 No current facility-administered medications on file prior to visit. Review of Systems: Negative except as noted in HPI. Physical Exam: BP 145/78 (BP Location (NBP): Left arm, Patient Position: Sitting) Pulse 73 Ht 157.5 cm (5' 2) Wt 45.4 kg (100 lb) BMI 18.29 kg/m?? GEN: Alert and appears stated age. Cooperative. In NAD. HEENT: Normocephalic and atraumatic. CV: RRR. Pulm: Respiratory rate and effort WNL. Abd: No palpable aortic pulse or abdominal mass. Soft, non-distended, non-tender to palpation. Skin: Color, texture, turgor normal. No rashes or lesions. Neuro: No gross sensory or motor abnormality. Extremities: Bilateral UE and LE warm and pink. No edema. No wounds. Skin rash on instep of R foot. Vascular Exam: R L Carotid Bruit No No Radial 2/2 2/2 Femoral 2/2 2/2 Popliteal 1/2 1/2 DP 2/2 2/2 PT 2/2 2/2 Labs: No results found for this or any previous visit (from the past 24 hour(s)). Studies: Recent Results (from the past 72 hour(s)) SHA, legs, multiple levels Result Value Ref Range VB Text Report Department: Vascular Surgery Lab Patient: [id number] (EMILIANA FARMER) CPT: 95978 Referring Physician: AYLA SCHMITT Phone: Indications: Follow up SHA, ? Change Diabetes mellitus: Pre Findings: Right Pressure (mm Hg) SHA Waveform TBI Brachial Artery 150 Dorsalis Pedis (Ankle) Artery 146 0.97 Bi-Triphasic Posterior Tibial (Ankle) Artery 149 0.99 Bi-Triphasic Great Toe 91 0.61 Left Pressure (mm Hg) SHA Waveform TBI Brachial Artery 140 Dorsalis Pedis (Ankle) Artery 150 1.00 Bi-Triphasic Posterior Tibial (Ankle) Artery 152 1.01 Biphasic-Rev Great Toe 86 0.57 Interpretation: RIGHT: No significant lower extremity arterial occlusive disease at the ankle. Toe-brachial index substantially lower than ankle-brachial index indicates presence of mild arterial occlusive disease in the foot. Change in disease class at the ankle; however, no significant change compared to prior exam on 04/06/2023. LEFT: No significant lower extremity arterial occlusive disease at the ankle. Toe-brachial index substantially lower than ankle-brachial index indicates presence of mild arterial occlusive disease in the foot. Change in disease class at the ankle; however, no significant change compared to prior exam on 04/06/2023. Previous ABIs with change from previous value: Date RIGHT DP RIGHT PT RT GR TOE RT Sec TOE 0.63 0.57 ---- ---- 0.99(+.36) 1.06(+.49) ---- ---- 0.99( .00) 0.98(-.08) ---- ---- 1.00(+.01) 1.0 3(+.05) ---- ---- 1.04(+.04) 1.05(+.02) 0.69 ---- 1.01(-.03) 1.00(-.05) ---- ---- 1.00(-.01) 0.99(-.01) ---- ---- 1.05(+.05) 0.96(-.03) ---- ---- 0.94(-.11) 0.88(-.08) 0.68 ---- Current 0.97(+.03) 0.99(+.11) 0.61(-.07) ---- Date LEFT DP LEFT PT LT GR TOE LT Sec TOE 0.62 0.56 ---- ---- 0.98(+.36) 1.00(+.44) ---- ---- 1.01(+.03) 0.99(-.01) ---- ---- 0.94(-.07) 0.94(-.05) ---- ---- 0.55(-.39) 0.56(-.38) 0.44 ---- 0.98(+.43) 1.05(+.49) ---- ---- 0.98( .00) 0.98(-.07) ---- ---- 0.96(-.02) 1.01(+.03) ---- ---- 0.91(-.05) 0.82(-.19) 0.62 ---- Current 1.00(+.09) 1.01(+.19) 0.57(-.05) ---- VB Text Report End of Report Assessment/Plan: 59 y.o. female PAD s/p vascular interventions outlined above, HTN, depression, gout. Patient with stable PAD s/p listed procedures. ABIs with no significant change from previous studies and patient asymptomatic from PAD. Ms. Farmer neuropathy, which is managed by PCP. We also discussed cigarette smoking at length and I strongly encouraged her to continue to decrease her cigarette use with the goal of abstinence. Patient amenable to the following plan: Recommend patient continue daily statin and ASA 81 mg. Recommend tight control of co-morbidities and strongly encouraged abstinence from smoking. Follow-up in the clinic in 1 year with ABIs and appointment with Dr. Gilebrt. Instructed to call the clinic with any concerns prior to next appointment. Instructed to call 911 for any s/sx of CLI including unilateral increased pain, decreased sensation or temperature, or tissue loss. Ayla Schmitt APRN Department of Vascular Surgery documented in this encounter Plan of Treatment Not on file documented as of this encounter Visit Diagnoses Diagnosis S/P aortobifemoral bypass surgery Other postprocedural status Aortoiliac occlusive 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 documented in this encounter Care Teams Rn Building Relationship Specialty Start Date End Date Nancy [place] [address] [place] [address] PCP - General Family Medicine 03/03/22 documented as of this encounter
--- OUTSIDE RECORDS SUMMARY | 2024-04-10 14:59 | XMS_ITS | Encounter Summary ---
Author Organization [facility] [place] [address] Care Team Providers Care Hand Former Helper Name Role Phone Nancy Alfred APRN Primary Care Provider Encounter Details Date Type Department Care Team (Latest Contact Info) Description 04/04/2024 Travel Social History Tobacco Use Types Packs/Day [...] on filedocumented in this encounter Care Teams Hand Former Helper Relationship Specialty Start Date End Date Nancy Alfred APRN [address] [place], [place] [address] PCP - General Family Medicine 03/03/22 documented as of this encounter
--- OUTSIDE RECORDS SUMMARY | 2024-04-10 14:59 | XMS_ITS | Encounter Summary ---
Author Organization [facility] [place] [address] Care Team Providers Care Tax Form Preparer Name Role Phone Nancy Alfred APRN Primary Care Provider [phone] Encounter Details Date Type Department Care Team [...] filedocumented in this encounter Care Teams Tax Form Preparer Relationship Specialty Start Date End Date Nancy Alfred APRN [address] [place], [place] [address] PCP - General Family Medicine 03/03/22 documented as of this encounter
--- OUTSIDE RECORDS SUMMARY | 2024-04-10 14:59 | XMS_ITS | Encounter Summary ---
Author Organization [facility] [place] [address] Care Team Providers Care Business Banking Sales Assistant Name Role Phone Beena Wilkes APRN Primary Care Provider [phone] Encounter Details Date Type Department Care Team (Late st Contact Info) Description 02/16/2022 Telephone [place] [address]-1000 Rosy Austin Social History Tobacco Use Types [...] on filedocumented in this encounter Care Teams Business Banking Sales Assistant Relationship Specialty Start Date End Date Beena Wilkes APRN [address] [place], [place] [id number] PCP - General Family Medicine 01/13/19 03/02/22 documented as of this encounter
--- OUTSIDE RECORDS SUMMARY | 2024-04-10 14:59 | XMS_ITS | Encounter Summary ---
Author Organization [facility] [place] [address] Care Team Providers Care Surface To Air Weapons Officer Name Role Phone Nancy Alfred APRN Primary Care Provider [phone] Encounter Details Date Type Department Care Team (Late st Contact Info) Description 04/06/2023 1:30 PM EST Tech Visit [place] [phone] Juilana Wilkinson S/P aortobifemoral bypass surgery Social History [...] Text Report Department: Vascular Surgery Lab Patient: [id number] (EMILIANA FARMER) CPT: 74843 Referring Physician: RADHA EMEYR APRN ?? Indications: H/o ABF BPG, ? [...] status documented in this encounter Care Teams Surface To Air Weapons Officer Relationship Specialty Start Date End Date Nancy Alfred APRN [address] [place] [address] PCP - General Family Medicine 03/03/22 documented as of this encounter
--- OUTSIDE RECORDS SUMMARY | 2024-04-10 14:59 | XMS_ITS | Clinical Summary ---
Author Organization [facility] Address [facility] [place] [address] Care Team Providers Care Shipfitter Apprentice Name Role Phone Nancy Alfred APRN Primary Care Provider [phone] Allergies Active Allergy Reactions Criticality Noted Date [...] by mouth daily. 90 tablet 03/06/2018 Active Additional Information Patient not taking.Reported on 04/04/2024 atorvastatin (LIPITOR) 40 mg Tablet Take 1 [...] by mouth 3 times daily. 03/02/2023 Active cephALEXin (Keflex) 500 mg capsule TAKE 1 CAPSULE BY MOUTH THREE TIMES DAILY FOR 10 DAYS DIRECTED 03/25/2024 Active metoproloL tartrate (Lopressor) 25 mg tablet take 1 tablet by mouth twice daily as directed 03/10/2024 Active lisinopriL (Zestril) 10 mg tablet Take 1 tablet by mouth Daily at Noon. 01/01/2024 Active Active Problems Problem Noted Date Diagnosed Date PAD (peripheral artery disease) 03/27/2019 Drinks beer 01/28/2019 Overview (01/28/2019): As of Jan 2019, patient reports 5 beers per night with plans to taper off before vascular surgery in February. Depression 01/28/2019 Gout 01/28/2019 Aortoiliac occlusive disease 03/05/2018 Hypertension 01/08/2018 Intermittent claudication 12/31/2017 History of renal stent 12/31/2017 Encounters Date Type Department Care Team Description 04/04/2024 11:00 AM EST Office Visit [place] [address] Ayla Schmitt APRN S/P aortobifemoral bypass surgery; Aortoiliac occlusive disease 04/04/2024 10:30 AM EST Tech Visit [place] [address] Jose Barraza S/P aortobifemoral bypass surgery; Aortoiliac occlusive disease 04/04/2024 Travel from Last 3 Months Social History Tobacco Use Types Packs/Day Years [...] Pulse 73 04/04/2024 10:53 AM EST Temperature 36.8 ??C (98.2 ??F) 04/05/2019 11:[address] Respiratory Rate 18 02/11/2021 10:11 AM EDT Oxygen Saturation 100% 04/05/2019 11:32 AM EST Inhaled Oxygen Concentration - - Weight 45.4 kg (100 lb) 04/04/2024 10:53 AM EST Height 157.5 cm (5' 2) 04/04/2024 10:53 AM EST Body Mass Index 18.29 04/04/2024 10:53 AM EST Plan of Treatment Health Maintenance Due [...] series) 01/20/2024 Medical Devices Implanted Type Area Stores Assistant Device Identifier Shelf Expiration Date Model / Serial / Lot Stent,Lstar,V asc,[id number],8 0cm ([id number]) - [id number] Implanted:Qty : 1 on 03/05/2018 by Yves Vegas MD at [facility] IMPLANTS N/A: Aorta [employer] - CR BARD 06/01/2020 [id number] / / [id number] Description:from IR inventor y Stent,Icast,C vr,7x59mm,120 cm ([id number]) - [id number] Implanted:Qty : 1 on 03/05/2018 by Yves Vegas MD at [facility] IMPLANTS Left: Arterial [employer] - GETINGE GR 08/27/2020 [id number] / [id number] / Description:left iliac arter y Stent,Icast,C vr,7x59mm,120 cm ([id number]) - [id number] Implanted:Qty : 1 on 03/05/2018 by Yves Vegas MD at [facility] IMPLANTS Right: Arterial [employer] - GET[employer] GR 08/31/2020 [id number] / [id number] / Description:right iliac marisol ry Graft,Maria Isabeld,Cheri guardado,Jorge,12x7m mx40 ([id number]) - [id number] Implanted:Qty : 1 on 03/31/2019 by Judy Gilbert MD at [facility] IMPLANTS N/A: Aorta [employer] - GETINGE GR 02/17/2022 [id number] / [id number] Procedures Procedure Name Priority Date/Time Associated Diagnosis Comments SHA, LEGS, MULTIPLE LEVELS Routine 04/04/2024 10:05 AM EST S/P aortobifemoral bypass surgery Aortoiliac occlusive disease from Last 3 Months Results * SHA, legs, multiple levels (04/04/2024 10:05 AM EST) VB Text Report Department: Vascular Surgery Lab Patient: [id number] (WALKER FARMER) CPT: 79499 Referring Physician: AYLA SCHMITT ?? Phone: Indications: Follow up SHA, ? Change Diabetes mellitus: Pre Findings: Right ?Pressure (mm Hg) ?? SHA ??Waveform ? TBI ?? Brachial Artery ?150 ? Dorsalis Pedis (Ankle) Artery ?146 ? 0.97 ??Bi-Triphasic ? Posterior Tibial (Ankle) Artery ??149 ? 0.99 ??Bi-Triphasic ? Great Toe ?91 ?0.61 ?? Left ? Pressure (mm Hg) ?? SHA ??Waveform ? TBI ?? Brachial Artery ?140 ? Dorsalis Pedis (Ankle) Artery ?150 ? 1.00 ??Bi-Triphasic ? Posterior Tibial (Ankle) Artery ??152 ? 1.01 ??Biphasic-Rev ? Great Toe ?86 ?0.57 ?? Interpretation: RIGHT: No significant lower extremity [...] ? ---- ??1.05(+.05) 0.96(-.03) ---- ? ---- ??0.94(-.11) 0.88(-.08) 0.68 ? ---- Current ? 0.97(+.03) 0.99(+.11) 0.61(-.07) ---- Date ?LEFT DP ?LEFT PT ?LT GR TOE LT Sec TOE ??0.62 ? 0.56 ? ---- ? ---- ??0.98(+.36) 1.00(+.44) ---- ? ---- ??1.01(+.03) 0.99(-.01) ---- ? ---- ??0.94(-.07) 0.94(-.05) ---- ? ---- ??0.55(-.39) 0.56(-.38) 0.44 ? ---- ??0.98(+.43) 1.05(+.49) ---- ? ---- ??0.98( .00) 0.98(-.07) ---- ? ---- ??0.96(-.02) 1.01(+.03) ---- ? ---- ??0.91(-.05) 0.82(-.19) 0.62 ? ---- Current ? 1.00(+.09) 1.01(+.19) 0.57(-.05) ---- Electronically Signed by: ARIANNA BELTRAN on 2024-04-04 02:03:00 PM [facility] VB Text Report End of Report [facility] 04/04/2024 10:0 5 AM EST Ayla Schmitt TELEPHONE ORDER SUPERVISOR VASCULAR ORDERABLES [facility] from Last 3 Months Advance Directives Documents on File Type Date Recorded Patient Internal Communications Writer Expl anation Advance Directives and Bailey ontiveros Will 03/06/2019 10:41 AM * Full Code (Latest Code Status on File) Date Activated Date Inactivated Comments 03/31/2019 9:08 PM 04/05/2019 5:46 PM Question Answer Comments Does patient have capacity to make decision: Yes * Full Code Date Activated Date Inactivated Comments 03/05/2018 12:03 PM 03/06/2018 5:13 PM Question Answer Comments Does patient have capacity to make decision: Yes Care Teams Shipfitter Apprentice Relationship Specialty Start Date End Date Nancy Alfred, TELEPHONE ORDER SUPERVISOR [facility] [place] [address] PCP - General Family Medicine 03/03/22
--- OUTSIDE RECORDS SUMMARY | 2024-04-10 14:59 | XMS_ITS | Encounter Summary ---
Author Organization [facility] [place] [address] Care Team Providers Care Roving Winder Name Role Phone Nancy Alfred APRN Primary Care Provider [phone] Encounter Details Date Type Department Care Team (Late st Contact Info) Description 03/03/2022 2:00 PM EDT Tech [place] [phone] Vikash Black [place] Aortoiliac occlusive disease Social [...] Text Report Department: Vascular Surgery Lab Patient: [id number] (EMILIANA FARMER) CPT: 55591 Referring Physician: PETE GILBERT ?? Phone: Indications: [...] aorta documented in this encounter Care Teams Roving Winder Relationship Specialty Start Date End Date Nancy Alfred, LITERACY EDUCATION PROFESSOR [address] [place] [address] PCP - General Family Medicine 03/03/22 documented as of this encounter
--- OUTSIDE RECORDS SUMMARY | 2024-04-10 14:59 | XMS_ITS | Encounter Summary ---
Author Organization [facility] [place] [address] Care Team Providers Care Nut Dehydrator Operator Name Role Phone Nancy Alfred APRN Primary Care Provider [phone] Reason for Referral * Diagnostic Test (Routine) - Closed Specialty Diagnoses / Procedures Referred By Contac t Referred To Contact Diagnoses S/P aortobifemoral bypass surgery Aortoiliac occlusive disease Procedures SHA, legs, multiple levels Ayla Schmitt APRN [facility] [place] [address] [facility] [address], [place] [address] Referral ID Status Reason Start Date Expiration Date V isits Requested Visits Authorized [id number] Closed Specialty Service Requested 04/09/2023 05/22/2024 1 1 Encounter Details Date Type Department Care Team (Latest Contact Info) Description 04/06/2023 2:00 PM EST Office Visit [place] [address] Ayla Schmitt APRN [facility] [place] [address] S/P aortobifemoral bypass surgery; Aortoiliac occlusive disease [...] this encounter Progress Notes * Ayla Schmitt, SOFT SUGAR CUTTER - 04/06/2023 2:00 PM EST Vascular Follow-Up [...] Intermittent claudication I73.9 History of renal stent [id number] Hypertension I10 Aortoiliac occlusive disease I74.09 Drinks [...] encounter Results * SHA, legs, multiple levels (04/04/2024 10:05 AM EST) VB Text Report Department: Vascular Surgery Lab Patient: [id number] (EMILIANA FARMER) CPT: 51694 Referring Physician: AYLA SCHMITT ?? Phone: Indications: [...] 04/04/2024 10:0 5 AM EST Ayla Schmitt SOFT SUGAR CUTTER VASCULAR ORDERABLES Performing Organization Address City/State/[facility] Co ma Phone Number [facility] documented in this encounter Visit Diagnoses Diagnosis S/P aortobifemoral bypass surgery Other postprocedural status Aortoiliac occlusive 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 documented in this encounter Care Teams Nut Dehydrator Operator Relationship Specialty Start Date End Date Nancy Alfred, SOFT SUGAR [place] [address] PCP - General Family Medicine 03/03/22 documented as of this encounter
--- OUTSIDE RECORDS SUMMARY | 2024-04-10 14:59 | XMS_ITS | Encounter Summary ---
Author Organization [facility] Address [facility] [place] [address] Care Team Providers Care Makeup Artist Name Role Phone Nancy Alfred APRN Primary Care Provider [phone] Reason for Referral * Diagnostic Test (Routine) - Closed Specialty Diagnoses / Procedures Referred By Contac t Referred To Contact Diagnoses S/P aortobifemoral bypass surgery Procedures SHA, legs, multiple levels Radha Emery APRN [facility] [place] [address] [facility] [address] [address] Referral ID Status Reason Start Date Expiration Date V isits Requested Visits Authorized [id number] Closed Specialty Service Requested 03/03/2022 03/03/2023 1 1 Encounter Details Date Type Department Care Team (Latest Contact Info) Description 03/03/2022 2:30 PM EDT Office [place] [address] Radha Emery APRN [facility] [place] [address] S/P aortobifemoral bypass surgery Social [...] this encounter Progress Notes * Radha Emery, COLLECTIONS REP - 03/03/2022 2:30 PM EDT OUTPATIENT VASCULAR [...] claudication I73.9 ??? History of renal stent [id number] ??? Hypertension I10 ??? Aortoiliac occlusive disease [...] Text Report Department: Vascular Surgery Lab Patient: [id number] (EMILIANA FARMER) CPT: 08171 Referring Physician: RADHA EMERY APRN ?? Indications: [...] status documented in this encounter Care Teams Makeup Artist Relationship Specialty Start Date End Date Nancy Alfred APRN [facility] [place] [address] PCP - General Family Medicine 03/03/22 documented as of this encounter
--- OUTSIDE RECORDS SUMMARY | 2024-04-10 14:59 | XMS_ITS | Encounter Summary ---
Author Organization [facility] [place] [address] Care Team Providers Care Auto Driver Name Role Phone Nancy Alfred APRN Primary Care Provider Reason for Visit * Diagnostic Test (Routine) - Closed Specialty Diagnoses / Procedures Referred By Contac t Referred To Contact Diagnoses S/P aortobifemoral bypass surgery Aortoiliac occlusive disease Procedures SHA, legs, multiple levels Ayla Schmitt APRN [facility] [place] [address] [facility] Vascular Lab [address] [place] [address] Referral ID Status Reason Start Date Expiration Date V isits Requested Visits Authorized [id number] Closed Specialty Service Requested 04/09/2023 05/22/2024 1 1 Encounter Details Date Type Department Care Team (Late st Contact Info) Description 04/04/2024 10:30 AM [facility] Tech [place] [address] Jose Barraza S/P aortobifemoral bypass surgery; Aortoiliac [...] S/P aortobifemoral bypass surgery Aortoiliac occlusive disease documented in this encounter Results * SHA, legs, multiple levels (04/04/2024 10:05 AM EST) VB Text Report Department: Vascular Surgery Lab Patient: [id number] (EMILIANA FARMER) CPT: [id number] Referring Physician: AYLA SCHMITT ?? Phone: Indications: [...] 04/04/2024 10:0 5 AM EST Ayla Schmitt POLYGRAPH TECHNICIAN VASCULAR ORDERABLES Performing Organization Address City/State/[facility] Co de Phone Number VASCUBASE documented in this encounter Visit Diagnoses Diagnosis S/P aortobifemoral bypass surgery Other postprocedural status Aortoiliac occlusive 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 documented in this encounter Care Teams Auto Driver Relationship Specialty Start Date End Date Nancy Alfred, POLYGRAPH TECHNICIAN [address] [place] [address] PCP - General Family Medicine 03/03/22 documented as of this encounter
--- OUTSIDE RECORDS SUMMARY | 2024-04-10 15:00 | XMS_ITS | Encounter Summary ---
Author Organization [facility] Address [facility] [place] [address] Care Team Providers Care Laundry Operator Finishing Name Role Phone Beena Wilkes APRN Primary Care Provider [phone] Encounter Details Date Type Department Care Team (Late st Contact Info) Description 02/11/2021 10:00 AM EDT Office [place] [id number] Pete Álvarez MD [facility] [place] [address] Aortoiliac occlusive disease Social History Tobacco Use [...] claudication I73.9 ??? History of renal stent [id number] ??? Hypertension I10 ??? Aortoiliac occlusive disease [...] Text Report Department: Vascular Surgery Lab Patient: [id number] (EMILIANA FARMER) CPT: 01639 ICD10: I74.09 Referring Physician: PETE ÁLVAREZ Phone: [...] aorta documented in this encounter Care Teams Laundry Operator Finishing Relationship Specialty Start Date End Date Beena Wilkes APRN [address] [place] [address] PCP - General Family Medicine 01/13/19 03/02/22 documented as of this encounter
--- OUTSIDE RECORDS SUMMARY | 2024-04-10 15:00 | XMS_ITS | Encounter Summary ---
Author Organization [place] [address] Care Team Providers Care Procedure Tech Name Role Phone Beena Wilkes APRN Primary Care Provider [phone] Reason for Referral * Diagnostic Test (Routine) - Closed Specialty Diagnoses / Procedures Referred By Contac t Referred To Contact Diagnoses Aortoiliac occlusive disease Procedures SHA, legs, multiple levels Pete Álvarez MD [facility] [address] [place] [address] [facility] Vascular Lab [address] [address] Referral ID Status Reason Start Date Expiration Date V isits Requested Visits Authorized [id number] Closed Specialty Service Requested 02/08/2021 02/08/2022 1 1 Encounter Details Date Type Department Care Team (Late st Contact Info) Description 02/08/2021 Orders [place] [address] Emmy Green, BLOCK CUTTER Aortoiliac occlusive disease Social History Tobacco Use [...] Text Report Department: Vascular Surgery Lab Patient: [id number] (EMILIANA FARMER) CPT: 94144 ICD10: I74.09 Referring Physician: PETE ÁLVAREZ ?? [...] EDT Pete Álvarez MD VASCULAR ORDERA [facility] Organization Address City/State/[facility] Co de Phone Number VASCUBASE documented in this encounter Visit Diagnoses Diagnosis Aortoiliac occlusive 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 documented in this encounter Care Teams Procedure Tech Relationship Specialty Start Date End Date Beena Wilkes, EVP CHIEF EXPLORATION OFFICER [address] [place] [address] PCP - General Family Medicine 01/13/19 03/02/22 documented as of this encounter
--- OUTSIDE RECORDS SUMMARY | 2024-04-10 15:00 | XMS_ITS | Encounter Summary ---
Author Organization [facility] [place] [address] Care Team Providers Care Leave Specialist Name Role Phone Beena Wilkes APRN Primary Care Provider [phone] Encounter Details Date Type Department Care Team (Late st Contact Info) Description 06/24/2019 Orders [place] [id number] Skye Harvey, [facility] Social History Tobacco Use Types Packs/Day Years [...] on filedocumented in this encounter Care Teams Leave Specialist Relationship Specialty Start Date End Date Beena Wilkes APRN [address] [place] [address] PCP - General Family Medicine 01/13/19 03/02/22 documented as of this encounter
--- OUTSIDE RECORDS SUMMARY | 2024-04-10 15:00 | XMS_ITS | Encounter Summary ---
Author Organization [facility] [place] [address] Care Team Providers Care Shot Blaster Name Role Phone Beena Wilkes APRN Primary Care Provider [phone] Reason for Visit * Reason Onset Date Comments Follow-up 03/24/2020 Tobacco Treatmen t Encounter Details Date Type Department Care Team (Late st Contact Info) Description 03/24/2020 Telephone [place] [address] Buck Watts, RN Follow-up (Tobacco [...] follow-ups. EMR updated. Buck Watts, MSN, RN[facility] Person [facility] Pager #[phone] documented in this encounter Plan of Treatment Not on file documented as of this encounter Visit Diagnoses Not on filedocumented in this encounter Care Teams Shot Blaster Relationship Specialty Start Date End Date Beena Wilkes, SUPERVISOR [employer] [address] [place] [address] PCP - General Family Medicine 01/13/19 03/02/22 documented as of this encounter
--- OUTSIDE RECORDS SUMMARY | 2024-04-10 15:00 | XMS_ITS | Encounter Summary ---
Author Organization [facility] Address [facility] [place] [address] Care Team Providers Care Metal Die Finisher Name Role Phone Beena Wilkes APRN Primary Care Provider [phone] Encounter Details Date Type Department Care Team (Late st Contact Info) Description 06/24/2019 Orders [place] [address] Laura Quiros VALVE INSERTER [facility] [place] [address] Aortoiliac occlusive disease; PAD (peripheral artery disease); [...] unspecified documented in this encounter Care Teams Metal Die Finisher Relationship Specialty Start Date End Date Beena Wilkes APRN [address] [place] [address] [address] [place], [place] [address] PCP - General Family Medicine 8/26/19 10/13/22 documented as of this encounter
--- OUTSIDE RECORDS SUMMARY | 2024-04-10 15:00 | XMS_ITS | Encounter Summary ---
Author Organization [facility] Address [facility] [place] [address] Care Team Providers Care Soldering Machine Operator Automatic Name Role Phone Beena Wilkes APRN Primary Care Provider [phone] Reason for Visit * Auth/Cert Specialty Diagnoses / Procedures Referred By Contac t Referred To Contact Diagnoses PAD (peripheral artery disease) PAD n/a Procedures PRO BYPASS GRAFT OTHR, AORTOBIFEMORAL @BYPASS GRAFT, AORTOBIFEMORAL W\ SYNTHETIC CONDUIT (WRVU 32.98) Referral ID Status Reason Start Date Expiration Date Visits Re quested Visits Authorized [id number] 1 1 Encounter Details Date Type Department Care Team (Late st Contact Info) Description 03/31/2019 12:00 PM EST - 03/31/2019 5:28 PM EST Surgery [place] [address] Judy Álvarez MD [facility] [place] [address] @BYPASS GRAFT, AORTOBIFEMORAL W\ SYNTHETIC CONDUIT (WRVU [...] AM Darlin Mendez [place] Vascular Lab at [facility] Arrive at: Director Of Individual Giving Area 05/06/2019 8:30 AM Rashawn Dawn MD Vascular Surgery at [facility] Arrive at: Director Of Individual Giving Area Future Orders Complete By Expires SHA, legs, multiple levels [VAS8 Custom] 05/05/2019 11/04/2019 Process Instructions: There is no in-house vascular cardiac cath lab radiology technologist available on weeknights (5pm-8am), weekends, or holidays. IF THIS IS A REQUEST FOR AN EMERGENT STUDY DURING THOSE HOURS, please have the senior provider responsible for the patient page the Vascular Surgery Fellow/Senior Resident surface to air weapons officer to discuss options. Scheduling Instructions: Questions: Indication for study/signs & symptoms: s/p aortobifemoral bypass Question to be answered: lower extremity flow Preferred location?: [facility] Arterial Duplex, Bilat Legs [VAS3 Custom] 05/05/2019 (Approximate) 11/04/2019 Process Instructions: There is no in-house vascular cardiac cath lab radiology technologist available on weeknights (5pm-8am), weekends, or holidays. IF THIS IS A REQUEST FOR AN EMERGENT STUDY DURING THOSE HOURS, please have the senior provider responsible for the patient page the Vascular Surgery Fellow/Senior Resident surface to air weapons officer to discuss options. Scheduling Instructions: Questions: [...] For any problems or questions please call [phone] TOR Broussard, asbestos textile supervisor Nurse Clinician For issues on weeknights after 5pm and weekends please call [phone] and ask for the Vascular Fellow surface to air weapons officer. Heron Bailey MD 04/05/2019 documented in this [...] For any problems or questions please call [phone] TRO Broussard, asbestos textile supervisor Nurse Clinician For issues on weeknights after 5pm and weekends please call [phone] and ask for the Vascular Fellow surface to air weapons officer. documented in this encounter Medications at Time of Discharge Medication Sig Dispensed Refills Start Date End Date nicotine polacrilex (COMMIT) [address] 2 mg inside cheek as needed for Smoking cessation. acetaminophen (TYLENOL) 325 mg Tablet Take 2 tablets by mouth every 6 hours as needed for Pain. 30 tablet 1 04/05/2019 atorvastatin (LIPITOR) 40 mg Tablet Take 1 [...] (E.C.) Take 81 mg by mouth daily. polyethylene glycol (MIRALAX) 17 gram Powder in [...] of nutrition support. Monie Saini, GERRI Pager [phone] * Laura Quiros HOT STICK MAN - 04/04/2019 8:22 AM EST Vascular Surgery Progress Note ID: Walker Faremr is a 54 y.o. female with a [...] Narrative:Visited to introduce and assess acceptance of Transplant Worker services. Pt was not available for visit [...] developed recurrent LLE claudication with decline in HSA from 0.9 to 0.5. She presents today [...] year. 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 Pt [...] encounter: 44.3 kg (97 lb 10.6 oz). [place] Body Weight:42.9- 47.7 kg Usual Body Weight: [...] day of surgery (03-14) at midnight. The [facility] was called and spoke to nurse who states Dr. Álvarez is fine with that. documented in this encounter H&P Notes * kSye Vasquez MD - 03/30/2019 11:55 PM EST [...] file Gets together: Not on file Attends anglican service: Not on file Active member of [...] MD, MS Vascular surgery fellow Service pager [phone] documented in this encounter Miscellaneous Notes * [...] no PT needs. Time IN / OUT: 2628-4125 Total Evaluation Minutes, Physical Therapy: 20(1 TA) Oskar Carney DPKika Pager: [phone] Physical Therapy Inpatient Rehabilitation Department * Plan [...] controlled with scheduled meds and PCEA. 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 BLE pulses +2 [...] e-cigarette ( X) Cigarettes Brand currently smoking: Sunflower lights/generics Current amount: 0.25 ppd Age initiated: [...] in places where it is forbidden ex [facility] No Yes 0 3. Which cigarette [...] at home. She has recently applied for [place] Medicaid. I reviewed the resources available through the [place] quit line and she has consented to [...] She has also been provided with a [facility] Smoking Cessation packet and the contents have been reviewed with her. She has my card with my contact information and has been encouraged to call if she has additional q uestions or concerns. Referral to [place] quitline placed. The patient has been encouraged to follow-up with PCP and/or the outpatient Tobacco Branch Associate, Fanny Gibbs APRN, and GEOFFREY Colon, in 3K clinic. Buck Watts, MSN, RN-, [facility] Tobacco Dust Box Worker [facility] Pager #[phone] * Plan of Care - Oskar Carney [...] 32.98) performed by Judy Álvarez MD at [facility] MAIN OR ??? PRO PLACE INTRAVASCULAR STENT OPEN/PERCUTAN 1ST ARTERY N/A 03/05/2018 TRANSCATH PLACEMENT INTRAVASCULAR STENT, OPN/PERQ, INITIAL ARTERY, S&I (WRVU 9) performed by Yves Vegas MD at [facility] MAIN OR ? ? PRO REVSC OPEN/PERCUTANEOUS ILIAC ART W STNT & ANGIOP IPSI VSL Bilateral 03/05/2018 REVSC OPN\PRQ ILIAC ART W\STNT & ANGIOP EA IPSILATERAL VSL-ALEX (WRVU 4.25) performed by Yves Vegas MD at [facility] MAIN OR ? ? PRO REVSC OPEN/PERCUTANEOUS ILIAC ART W STNT PLMT&ANGIO PRECIOUS VSL UNILAT Bilateral 03/05/2018 REVSC OPN\PRQ ILIAC ART W\STNT PLMT & ANGIOP SAME VSL BILAT (WRVU 10) performed by Yves Vegas MD at [facility] MAIN OR Social History: Pt lives alone but has boyfriend who comes over several times a week and has supportive family as well. 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 Is normally indep but was having leg [...] outlinedin this evaluation. Time IN / OUT: 2776-1749 Total Evaluation Minutes, Physical Therapy: 24(Eval) Oskar Carney, PT Pager: [phone] Physical Therapy Inpatient Rehabilitation Department * Plan [...] given this morning. Adequate urine output. Increased TOE SEWER x2 today per APS. 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 Social & Family Supports/Community Resources: Good support [...] Other: Has applied for financial assistance from [facility]. Also now qualifies for food stamps and fuel assistance. Primary Care Provider: Beena Wilkes APRN [phone] Patient/Caregiver Goals of Treatment: to return home [...] unavailable for both attempts. I left the [facility] Tobacco Treatment at the bedside. I will be out of hospital tomorrow and willfollow-up with patient on , the . Buck Watts, MSN, RN-[facility] Tobacco Dust Box Worker [facility] Pager #[phone] * Plan of Care - Jenna Licea [...] Vasquez MD - 03/31/2019 7:00 PM EST [facility] Operative Note Patient Name: Walker Farmer : [id number] MR#: [id number] Case Date: 03/31/2019 Surgeon: Surgeon(s) and Role: [...] PATHOLOGY Left Groin Lymph Node OR 15 18044 PAD Left Groin Lymph Node excision YES, [...] Implant Name Type Inv. Item Serial No. Metal Control Coordinator Lot No. LRB No. Used Action GRAFT,HMGD,KNT,BIFUR,[id number] ([id number]) - [id number] IMPLANTS GRAFT,HMGD,KNT,BIFUR,[id number] ([id number]) [id number] [facility] [id number] N/A 1 Implanted Infection Bundle used? [...] 12:11 PM EST Bypass Graft Othr, Aortobifemoral ([id number]) 03/31/2019 12:10 PM EST PAD BYPASS GRAFT, [...] Text Report Department: Vascular Surgery Lab Patient: [id number] (WALKER FARMER) CPT: 68041 ICD10: Z48.812;I74.09;I 73.9 Referring Physician: JUDY ÁLVAREZ [...] 6:15 AM EST) Neutrophil % 64.9 % [facility] Neutrophil Absolute 3.94 1.70 - 6.10 x10(3)/[facility] Lymph % 23.7 % [facility] Lymphocytes Abs 1.4 0.9 - 3.2 x10(3)/[facility] Monocyte % 8.1 % [facility] Monocyte Abs 0.5 0.3 - 0.9 x10(3)/[facility] Eos % 2.8 % [facility] Eosinophils Abs 0.2 0.0 - 0.4 x10(3)/[facility] Basophil % 0.3 % [facility] Baso Absolute 0.0 0.0 - 0.1 x10(3)/[facility] Immature Gran % 0.20 % [facility] Comment: Immature granulocytes(IG's)percentage and absolute count will include metamyelocytes, myelocytes, and promyelocytes. Blood smears from CBCs yielding IG's will be scanned manually for concordance. If this scan disagrees with the automated IG or if promyelocytes are noted, a manual differential will be performed. Immature Gran Absolute 0.01 0.00 - 0.04 x10(3)/[facility] Blood specimen (specimen) 04/04/2019 6:15 AM EST 04/04/2019 6:30 AM EST Narrative Resulting Agency Comment Spec In Lab Heron Bailey MD HEMATOLOGY ORDERABLE S [facility] [address] * (ABNORMAL) Hemogram (04/04/2019 6:15 AM EST) White Blood Cell 6.1 4.0 - 9.5 x10(3)/ L [facility] Red Blood Cell 2.94(L) 4.00 - 5.21 x10(6)/mc L [facility] Hemoglobin 9.2(L) 11.7 - 15.5 gm/dL [facility] Hematocrit 28.1(L) 35.7 - 45.8 % [facility] Mean Cell Volume 95.6(H) 82.6 - 94.[address] [facility] Mean Cell Hemoglobin 31.3 27.1 - 32.[address] [facility] Mean Cell Hemoglobin Concentration 32.7 31.7 - 35.0 gm/dL [facility] Platelet 233 145 - 357 x10(3)/mc L [facility] RDW Standard Deviation 45.8 37.0 - 46.[address] [facility] RDW coefficient of variation 13.1 11.5 - 14.1 % [facility] Mean Platelet Volume 10.3 7.6 - 12.[address] [facility] NRBC% auto 0.0 % [facility] NRBC Absolute 0.000 0.000 - 0.000 x10(3)/ L [facility] Blood specimen (specimen) 04/04/2019 6:15 AM EST 04/04/2019 6:30 AM EST Narrative Resulting Agency Comment Spec In Lab Heron Bailey MD HEMATOLOGY ORDERABLE S Performing Organization Address City/[facility]/ZIP Co de Phone Number [facility] [place] [address] * (ABNORMAL) Phosphorus (04/04/2019 6:15 AM EST) Pathologist [facility] Phosphorus 2.2(L) 2.5 - 4.5 mg/dL [facility] Blood specimen (specimen) 04/04/2019 6:15 AM EST 04/04/2019 6:30 AM EST Narrative Resulting Agency Comment Spec In Lab Judy Álvarez MD CHEMISTRY ORDER ZAINA Performing Organization Address [facility] Co de Phone Number [facility] [place] [address] * Magnesium (04/04/2019 6:15 AM EST) [facility] Magnesium 0.81 0.69 - 1.07 mmol/L [facility] Blood specimen (specimen) 04/04/2019 6:15 AM EST 04/04/2019 6:30 AM EST Narrative Resulting Agency Comment Spec In Lab Judy Álvarez MD CHEMISTRY ORDER ZAINA Performing Organization Address [facility] Co de Phone Number [facility] [place] [address] * (ABNORMAL) Basic Metabolic Panel (non-fasting) (04/04/2019 6:15 AM EST) Pathologist [facility] Glucose 152 65 - 199 mg/dL [facility] Comment:Diabetes: >=200 mg/d L plus symptoms Blood Urea Nitrogen 4(L) 8 - 18 mg/dL [facility] Creatinine 0.38(L) 0.70 - 1.20 mg/dL [facility] Sodium 140 135 - 145 mmol/L [facility] Potassium 3.9 3.5 - 5.0 mmol/L [facility] Comment: Please note: ??Patients with WBC >100,000 may have falsely elevated Potassium levels. ??For accurate Potassium quantification in these patients send serum separator tube (gold top) for subsequent determinations. ??Contact the Clinical Chemistry Laboratory if there are any questions. Chloride 106 98 - 107 mmol/L [facility] Carbon Dioxide 24 22 - 31 mmol/L [facility] Anion Gap 10 5 - 15 mmol/L [facility] Calcium 8.1(L) 8.5 - 10.5 mg/dL [facility] Est Glomerular Filtration Rate 121 >=60 mL/min/1. 73 m?? [facility] Comment: The eGFR was calculated using the CKD-EPI equation. As with all creatinine based estimates of kidney function, eGFR values calculated with the CKD-EPI equation are not accurate in patients with acute kidney failure, extremes of body mass or the acutely ill. http://[employer]/[facility]Enk[facility] eGFR 140 >=60 mL/min/1. 73 m?? [facility] Comment: The eGFR was calculated using the CKD-EPI equation. As with all creatinine based estimates of kidney function, eGFR values calculated with the CKD-EPI equation are not accurate in patients with acute kidney failure, extremes of body mass or the acutely ill. [email or web address]/DHMCnkf Blood specimen (specimen) 04/04/2019 6:15 AM EST 04/04/2019 6:30 AM EST Narrative Resulting Agency Comment Spec In Lab Judy Álvarez MD CHEMISTRY ORDER ZAINA [facility] [address] * XR Abdomen 1 view (Generic) (04/02/2019 [...] below. ? Electronically signed by: Evelyn Espinoza [facility] ([phone]), at 04/02/2019 7:58 AM Narrative 04/02/2019 7:58 [...] number below. Electronically signed by: Evelyn Espinoza [facility] ([phone]),at 04/02/2019 7:58 AM Judy Álvarez MD IMG DX ORDERABL ES * Phosphorus (04/01/2019 7:41 PM EST) Phosphorus 2.5 2.5 - 4.5 mg/dL [facility] Blood specimen (specimen) 04/01/2019 7:41 PM EST 04/01/2019 7:46 PM EST Narrative Resulting Agency Comment Spec In Lab Judy Álvarez MD CHEMISTRY ORDER ZAINA [facility] [place] [address] * Magnesium (04/01/2019 7:41 PM EST) Magnesium 0.78 0.69 - 1.07 mmol/L [facility] Blood specimen (specimen) 04/01/2019 7:41 PM EST 04/01/2019 7:46 PM EST Narrative Resulting Agency Comment Spec In Lab Judy Álvarez MD CHEMISTRY ORDER ZAINA [facility] [address] * (ABNORMAL) Basic Metabolic Panel (non-fasting) (04/01/2019 7:41 PM EST) Glucose 145 65 - 199 mg/dL [facility] Comment:Diabetes: >=200 mg/d L plus symptoms Blood Urea Nitrogen 6(L) 8 - 18 mg/dL [facility] Creatinine 0.50(L) 0.70 - 1.20 mg/dL [facility] Sodium 140 135 - 145 mmol/L [facility] Potassium 3.8 3.5 - 5.0 mmol/L [facility] Comment: Please note: ??Patients with WBC >100,000 may have falsely elevated Potassium levels. ??For accurate Potassium quantification in these patients send serum separator tube (gold top) for subsequent determinations. ??Contact the Clinical Chemistry Laboratory if there are any questions. Chloride 104 98 - 107 mmol/L [facility] Carbon Dioxide 24 22 - 31 mmol/L [facility] Anion Gap 12 5 - 15 mmol/L [facility] Calcium 8.6 8.5 - 10.5 mg/dL [facility] Est Glomerular Filtration Rate 110 >=60 mL/min/1. 73 m?? [facility] Comment: The eGFR was calculated using the CKD-EPI equation. As with all creatinine based estimates of kidney function, eGFR values calculated with the CKD-EPI equation are not accurate in patients with acute kidney failure, extremes of body mass or the acutely ill. http://[employer]/[facility]GATEnkf eGFR 128 >=60 mL/min/1. 73 m?? [facility] Comment: The eGFR was calculated using the CKD-EPI equation. As with all creatinine based estimates of kidney function, eGFR values calculated with the CKD-EPI equation are not accurate in patients with acute kidney failure, extremes of body mass or the acutely ill. http://[employer]/[facility]GATEnkf Blood specimen (specimen) 04/01/2019 7:41 PM EST 04/01/2019 7:46 PM EST Narrative Resulting Agency Comment Spec In Lab Judy Álvarez MD CHEMISTRY ORDER ZAINA Performing Organization Address [facility] Co de Phone Number [facility] [place] [address] * (ABNORMAL) Hemoglobin and Hematocrit, blood (04/01/2019 5:24 AM EST) Hemoglobin 10.9(L) 11.7 - 15.5 gm/dL [facility] Hematocrit 32.4(L) 35.7 - 45.8 % [facility] Blood specimen (specimen) 04/01/2019 5:24 AM EST 04/01/2019 5:52 AM EST Narrative Resulting Agency Comment Spec In Lab Judy Álvarez MD HEMATOLOGY ORDE RABLES Performing Organization Address [facility] Co de Phone Number [facility] [address] * (ABNORMAL) Basic Metabolic Panel (non-fasting) (04/01/2019 5:24 AM EST) Glucose 185 65 - 199 mg/dL [facility] Comment:Diabetes: >=200 mg/d L plus symptoms Blood Urea Nitrogen 6(L) 8 - 18 mg/dL [facility] Creatinine 0.58(L) 0.70 - 1.20 mg/dL [facility] Sodium 139 135 - 145 mmol/L [facility] Potassium 3.6 3.5 - 5.0 mmol/L [facility] Comment: Please note: ??Patients with WBC >100,000 may have falsely elevated Potassium levels. ??For accurate Potassium quantification in these patients send serum separator tube (gold top) for subsequent determinations. ??Contact the Clinical Chemistry Laboratory if there are any questions. Chloride 102 98 - 107 mmol/L [facility] Carbon Dioxide 23 22 - 31 mmol/L [facility] Anion Gap 14 5 - 15 mmol/L [facility] Calcium 8.2(L) 8.5 - 10.5 mg/dL [facility] Est Glomerular Filtration Rate 105 >=60 mL/min/1. 73 m?? [facility] Comment: The eGFR was calculated using the CKD-EPI equation. As with all creatinine based estimates of kidney function, eGFR values calculated with the CKD-EPI equation are not accurate in patients with acute kidney failure, extremes of body mass or the acutely ill. http://[employer]/[facility]GATEnk[facility] eGFR 122 >=60 mL/min/1. 73 m?? [facility] Comment: The eGFR was calculated using the CKD-EPI equation. As with all creatinine based estimates of kidney function, eGFR values calculated with the CKD-EPI equation are not accurate in patients with acute kidney failure, extremes of body mass or the acutely ill. http://[employer]/DHnkf Blood specimen (specimen) 04/01/2019 5:24 AM EST 04/01/2019 5:52 AM EST Narrative Resulting Agency Comment Spec In Lab Judy Álvarez MD CHEMISTRY ORDER ZAINA [facility] [address] * (ABNORMAL) Hemogram (03/31/2019 10:02 PM EST) White Blood Cell 15.4(H) 4.0 - 9.5 x10(3)/mc L [facility] Red Blood Cell 3.40(L) 4.00 - 5.21 x10(6)/mc L [facility] Hemoglobin 10.9(L) 11.7 - 15.5 gm/dL [facility] Hematocrit 32.3(L) 35.7 - 45.8 % [facility] Mean Cell Volume 95.0(H) 82.6 - 94.[address] [facility] Mean Cell Hemoglobin 32.1(H) 27.1 - 32.[address] [facility] Mean Cell Hemoglobin Concentration 33.7 31.7 - 35.0 gm/dL [facility] Platelet 254 145 - 357 x10(3)/mc L [facility] RDW Standard Deviation 45.9 37.0 - 46.[address] [facility] RDW coefficient of variation 13.1 11.5 - 14.1 % [facility] Mean Platelet Volume 9.7 7.6 - 12.[address] [facility] NRBC% auto 0.0 % [facility] NRBC Absolute 0.000 0.000 - 0.000 x10(3)/mc L [facility] Blood specimen (specimen) 03/31/2019 10:02 PM EST 03/31/2019 10:06 PM EST Narrative Resulting Agency Comment Spec In Lab Judy Álvarez MD HEMATOLOGY HALEY GARCIA [facility] [place] [id number] * (ABNORMAL) BMP w/fasting Glucose (03/31/2019 6:44 PM EST) Glucose Fasting 158(H) 65 - 99 mg/dL [facility] Comment: ?Fasting* Glucose Interpretive Criteria [...] of Diabetes Mellitus, Position Statement from the [place] [employer]. ??Diabetes Care, Volume 33, Supplement 1, May 2009 Blood Urea Nitrogen 7(L) 8 - 18 mg/dL [facility] Creatinine 0.51(L) 0.70 - 1.20 mg/dL [facility] Sodium 144 135 - 145 mmol/L [facility] Potassium 3.2(L) 3.5 - 5.0 mmol/L [facility] Comment: Please note: ??Patients with WBC >100,000 may have falsely elevated Potassium levels. ??For accurate Potassium quantification in these patients send serum separator tube (gold top) for subsequent determinations. ??Contact the Clinical Chemistry Laboratory if there are any questions. Chloride 109(H) 98 - 107 mmol/L [facility] Carbon Dioxide 22 22 - 31 mmol/L [facility] Anion Gap 13 5 - 15 mmol/L [facility] Calcium 8.2(L) 8.5 - 10.5 mg/dL [facility] Est Glomerular Filtration Rate 110 >=60 mL/min/1. 73 m?? [facility] Comment: The eGFR was calculated using the CKD-EPI equation. As with all creatinine based estimates of kidney function, eGFR values calculated with the CKD-EPI equation are not accurate in patients with acute kidney failure, extremes of body mass or the acutely ill. http://[employer]/[facility]GATEnk[facility] eGFR 127 >=60 mL/min/1. 73 m?? [facility] Comment: The eGFR was calculated using the CKD-EPI equation. As with all creatinine based estimates of kidney function, eGFR values calculated with the CKD-EPI equation are not accurate in patients with acute kidney failure, extremes of body mass or the acutely ill. http://[employer]/DHnkf Blood specimen (specimen) 03/31/2019 6:44 PM EST 03/31/2019 6:55 PM EST Narrative Resulting Agency Comment Spec In Lab Judy Álvarez MD CHEMISTRY ORDER ZAINA [facility] [address] * Lactate, whole blood, send to lab ([facility]) (03/31/2019 6:44 PM EST) Pathologist [facility] Lactate WB 0.8 0.5 - 2.2 mmol/L [facility] Blood specimen (specimen) 03/31/2019 6:44 PM EST 03/31/2019 6:55 PM EST Narrative Resulting Agency Comment Spec In Lab Judy Álvarez MD CHEMISTRY ORDER ZAINA [facility] [address] * (ABNORMAL) Hemogram (03/31/2019 6:44 PM EST) Pathologist [facility] White Blood Cell 14.8(H) 4.0 - 9.5 x10(3)/mc L [facility] Red Blood Cell 3.46(L) 4.00 - 5.21 x10(6)/mc L [facility] Hemoglobin 11.0(L) 11.7 - 15.5 gm/dL [facility] Hematocrit 33.0(L) 35.7 - 45.8 % [facility] Mean Cell Volume 95.4(H) 82.6 - 94.[address] [facility] Mean Cell Hemoglobin 31.8 27.1 - 32.[address] [facility] Mean Cell Hemoglobin Concentration 33.3 31.7 - 35.0 gm/dL [facility] Platelet 267 145 - 357 x10(3)/mc L [facility] RDW Standard Deviation 45.4 37.0 - 46.[address] [facility] RDW coefficient of variation 13.0 11.5 - 14.1 % [facility] Mean Platelet Volume 9.6 7.6 - 12.[address] [facility] NRBC% auto 0.0 % [facility] NRBC Absolute 0.000 0.000 - 0.000 x10(3)/mc L [facility] Blood specimen (specimen) 03/31/2019 6:44 PM EST 03/31/2019 6:55 PM EST Narrative Resulting Agency Comment Spec In Lab Judy Álvarez MD HEMATOLOGY HALEY GARCIA [facility] [address] * (ABNORMAL) BLOOD GAS 2 ARTERIAL (03/31/2019 5:42 PM EST) pH, Arterial 7.37 7.35 - 7.45 [facility] PCO2, Arterial 40 35 - [address] [facility] PO2, Arterial 286(H) 85 - [address] [facility] Bicarbonate, Arterial 22.7 20.0 - 26.0 mmol/L [facility] Base Excess, Arterial -2.5 -3.0 - 3.0 mmol/L [facility] Hgb Blood Gas 10.6(L) 11.7 - 15.5 gm/dL [facility] Oxyhemoglobin, Arterial 98.6(H) 94.0 - 97.0 % [facility] Carboxyhemoglob in, Arterial 0.4 % [facility] Comment: Nonsmokers: 0.5-1.5% COHB Smokers: Variable, but usually less than 10% Toxic: 20-30% COHB Lethal: Greater than 60% COHB Methemoglobin, Arterial 0.3 <=1.5 % [facility] Na Whole Blood 140 135 - 145 mmol/L [facility] K Whole Blood 3.1(L) 3.5 - 5.0 mmol/L [facility] Comment: Please note: Patients with WBC >100,000 may have falsely elevated Potassium levels. Contact the Clinical Chemistry Laboratory if there are any questions. ICa Whole Blood 1.14(L) 1.15 - 1.33 mmol/L [facility] Comment: Note: ??Total bilirubin higher than 20 mg/dL may lead to falsely low ionized calcium. CL Whole Blood 111(H) 98 - 107 mmol/L [facility] Gluc Whole Bld 143 65 - 199 mg/dL [facility] Comment:Diabetes: >=200 mg/d L plus symptoms. Lactate WB 1.1 0.5 - 2.2 mmol/L [facility] Blood specimen (specimen) 03/31/2019 5:42 PM EST 03/31/2019 5:42 PM EST Judy Álvarez MD POINT OF CARE T EST ORDERABLES [facility] [place] [address] * (ABNORMAL) Differential, Automated (03/31/2019 4:30 PM EST) Neutrophil % 77.1 % [facility] Neutrophil Absolute 13.23(H) 1.70 - 6.10 x10(3)/mc L [facility] Lymph % 17.6 % [facility] Lymphocytes Abs 3.0 0.9 - 3.2 x10(3)/mc L [facility] Monocyte % 4.1 % [facility] Monocyte Abs 0.7 0.3 - 0.9 x10(3)/mc L [facility] Eos % 0.3 % [facility] Eosinophils Abs 0.1 0.0 - 0.4 x10(3)/mc L [facility] Basophil % 0.4 % [facility] Baso Absolute 0.1 0.0 - 0.1 x10(3)/mc L [facility] Immature Gran % 0.50 % [facility] Comment: Immature granulocytes(IG's)percentage and absolute count will include metamyelocytes, myelocytes, and promyelocytes. Blood smears from CBCs yielding IG's will be scanned manually for concordance. If this scan disagrees with the automated IG or if promyelocytes are noted, a manual differential will be performed. Immature Gran Absolute 0.09(H) 0.00 - 0.04 x10(3)/mc L [facility] Blood specimen (specimen) 03/31/2019 4:30 PM EST 03/31/2019 4:32 PM EST Narrative Resulting Agency Comment Spec In Lab Rosita Ayala MD HEMATOLOGY ORDERABLE S [facility] [address] * (ABNORMAL) Hemogram (03/31/2019 4:30 PM EST) White Blood Cell 17.2(H) 4.0 - 9.5 x10(3)/mc L [facility] Red Blood Cell 3.46(L) 4.00 - 5.21 x10(6)/mc L [facility] Hemoglobin 11.1(L) 11.7 - 15.5 gm/dL [facility] Hematocrit 33.2(L) 35.7 - 45.8 % [facility] Comment: This result has been called to HOSEA WHITTAKER by Jag Harris on 03 31 2019 at 1701, and has been read back. Mean Cell Volume 96.0(H) 82.6 - 94.[address] [facility] Mean Cell Hemoglobin 32.1(H) 27.1 - 32.[address] [facility] Mean Cell Hemoglobin Concentration 33.4 31.7 - 35.0 gm/dL [facility] Platelet 280 145 - 357 x10(3)/mc L [facility] RDW Standard Deviation 45.8 37.0 - 46.[address] [facility] RDW coefficient of variation 13.1 11.5 - 14.1 % [facility] Mean Platelet Volume 9.9 7.6 - 12.[address] [facility] NRBC% auto 0.0 % [facility] NRBC Absolute 0.000 0.000 - 0.000 x10(3)/mc L [facility] Blood specimen (specimen) 03/31/2019 4:30 PM EST 03/31/2019 4:32 PM EST Narrative Resulting Agency Comment Spec In Lab Rosita Ayala MD HEMATOLOGY ORDERABLE S Performing Organization Address [facility] Co de Phone Number [facility] [place] [address] * Fibrinogen (03/31/2019 4:30 PM EST) Fibrinogen 209 200 - 393 mg/dL [facility] Comment: A fibrinogen level >100 mg/dL is adequate for hemostasis in most patients without underlying bleeding disorders. Blood specimen (specimen) 03/31/2019 4:30 PM EST 03/31/2019 4:32 PM EST Narrative Resulting Agency Comment Spec In Lab Judy Álvarez MD HEMATOLOGY HALEY GARCIA Performing Organization Address [facility] Co de Phone Number [facility] [place] [address] * (ABNORMAL) APTT (03/31/2019 4:30 PM EST) Partial Thromboplastin Time >160(Crit ical) 25 - [address] [facility] Comment: Called by: FARZANA, Read [...] MD HEMATOLOGY ORDBrianna GARCIA Performing Organization Address [facility] Co de Phone Number [facility] [place] [address] * (ABNORMAL) Prothrombin Time (03/31/2019 4:30 PM EST) Prothrombin Time 13.2(H) 9.4 - 12.[address] [facility] International Normalization Ratio 1.1 [facility] Comment: An INR <2.0 indicates [...] Lab Judy Álvarez MD HEMATOLOGY HALEY GARCIA [facility] Organization Address City/State/ZIP Co de Phone Number [facility] [place] [address] * (ABNORMAL) BLOOD GAS 2 ARTERIAL (03/31/2019 4:01 PM EST) pH, Arterial 7.34(L) 7.35 - 7.45 [facility] PCO2, Arterial 45 35 - [address] [facility] PO2, Arterial 271(H) 85 - [address] [facility] Bicarbonate, Arterial 24.1 20.0 - 26.0 mmol/L [facility] Base Excess, Arterial -1.7 -3.0 - 3.0 mmol/L [facility] Hgb Blood Gas 11.9 11.7 - 15.5 gm/dL [facility] Oxyhemoglobin, Arterial 98.5(H) 94.0 - 97.0 % [facility] Carboxyhemoglob in, Arterial 0.5 % [facility] Comment: Nonsmokers: 0.5-1.5% COHB Smokers: Variable, but usually less than 10% Toxic: 20-30% COHB Lethal: Greater than 60% COHB Methemoglobin, Arterial 0.3 <=1.5 % [facility] Na Whole Blood 140 135 - 145 mmol/L [facility] K Whole Blood 3.3(L) 3.5 - 5.0 mmol/L [facility] Comment: Please note: Patients with WBC >100,000 may have falsely elevated Potassium levels. Contact the Clinical Chemistry Laboratory if there are any questions. ICa Whole Blood 1.15 1.15 - 1.33 mmol/L [facility] Comment: Note: ??Total bilirubin higher than 20 mg/dL may lead to falsely low ionized calcium. CL Whole Blood 110(H) 98 - 107 mmol/L [facility] Gluc Whole Bld 158 65 - 199 mg/dL [facility] Comment:Diabetes: >=200 mg/d L plus symptoms. Lactate WB 1.4 0.5 - 2.2 mmol/L [facility] Blood specimen (specimen) 03/31/2019 4:01 PM EST 03/31/2019 4:01 PM EST Judy Álvarez MD POINT OF CARE T EST ORDERABLES Performing Organization Address [facility] [place] [address] * Specimen to Pathology (03/31/2019 1:35 PM EST) AP Specimen 03/31/2019 1:35 PM EST 03/31/2019 1:[address] [facility] - 03/31/2019 1:35 PM EST Specimen requisition ordered. ??Separate Pathology report to follow Judy Álvarez MD PATHOLOGY/CYTOL OGY ORDERABLES Performing Organization Address [facility] [place] [address] * Surgical Pathology Report (03/31/2019 1:26 PM EST) Final Diagnosis [id number] ? Location: [facility]; P4; A The signing pathologist has (i) examined the relevant preparation(s) for the specimen(s) and (ii) rendered or confirmed the diagnosis(es). . ?Surgical Pathology DIAGNOSIS Lymph node, left groin lymph node, excision: - Benign lymph node with intraparenchymal and intracapsular black pigment, ? see Discussion. Electronically signed by: ??Ángel Garcia MD Verified: ??04/04/2019 ?Dermatopathologis t, Bone & Soft Tissue Pathologist Performed at: ??-[facility] Dept. of Pathology, [place], [place] DISCUSSION This finding could be the [...] Bone & Soft Tissue Pathologist Performed at: ??-[facility] Dept. of Pathology, [place], [place] This intraoperative consultation should be interpreted as a preliminary diagnosis pending review of the entire specimen and special studies, if any. 04/04/2019 3:48 PM [facility] LYMPH NODE SPECIMEN / Unknown 03/31/2019 1:26 PM EST 03/31/2019 1:26 PM EST Judy Álvarez MD PATHOLOGY/CYTOL OGY ORDERABLES [facility] [place] [address] * (ABNORMAL) BLOOD GAS 2 ARTERIAL (03/31/2019 1:13 PM EST) pH, Arterial 7.45 7.35 - 7.45 [facility] PCO2, Arterial 32(L) 35 - [address] [facility] PO2, Arterial 312(H) 85 - [address] [facility] Bicarbonate, Arterial 21.3 20.0 - 26.0 mmol/L [facility] Base Excess, Arterial -2.7 -3.0 - 3.0 mmol/L [facility] Hgb Blood Gas 11.4(L) 11.7 - 15.5 gm/dL [facility] Oxyhemoglobin, Arterial 98.1(H) 94.0 - 97.0 % [facility] Carboxyhemoglob in, Arterial 0.9 % [facility] Comment: Nonsmokers: 0.5-1.5% COHB Smokers: Variable, but usually less than 10% Toxic: 20-30% COHB Lethal: Greater than 60% COHB Methemoglobin, Arterial 0.3 <=1.5 % [facility] Na Whole Blood 140 135 - 145 mmol/L [facility] K Whole Blood 2.7(Critic al) 3.5 - 5.0 mmol/L [facility] Comment: Noted by percussion instrument tuner. Please note: Patients with WBC >100,000 may have falsely elevated Potassium levels. Contact the Clinical Chemistry Laboratory if there are any questions. ICa Whole Blood 1.04(L) 1.15 - 1.33 mmol/L [facility] Comment: Note: ??Total bilirubin higher than 20 mg/dL may lead to falsely low ionized calcium. CL Whole Blood 112(H) 98 - 107 mmol/L [facility] Gluc Whole Bld 138 65 - 199 mg/dL [facility] Comment:Diabetes: >=200 mg/d L plus symptoms. Lactate WB 0.6 0.5 - 2.2 mmol/L [facility] Blood specimen (specimen) 03/31/2019 1:13 PM EST 03/31/2019 1:13 PM EST Judy Álvarez MD POINT OF CARE T EST ORDERABLES Performing Organization Address [facility] de Phone Number [facility] [place] [address] * XR Fluoro No Rad <1Hr - OR Use (03/31/2019 12:11 PM EST) Narrative [facility] - 03/31/2019 12:17 PM EST This exam is auto-finalizing. No interpretation was done. Judy Álvarez MD IMG FLUORO ORDE RABLES Performing Organization Address [facility] Co de Phone Number RAD [place], [place] * ABORH Recheck Status (03/31/2019 10:13 AM EST) ABORH Type Recheck Completed [facility] Blood specimen (specimen) 03/31/2019 10:13 AM EST 03/31/2019 10:16 AM EST Narrative Resulting Agency Comment Spec In Lab Judy Álvarez MD BLOOD BANK LAB ORDERABLES Performing Organization Address [facility] Co de Phone Number [facility] [place] [place] [address] * Antibody screen (03/31/2019 10:13 AM EST) Ab Screen Interp Negative [facility] Expires at [id number] on: 04/03/2019 [facility] Blood specimen (specimen) 03/31/2019 10:13 AM EST 03/31/2019 10:16 AM EST Narrative Resulting Agency Comment Spec In Lab Judy Álvarez MD BLOOD BANK LAB ORDERABLES Performing Organization Address City/[facility]/ZIP Co de Phone Number [facility] [place] [address] * ABO/Rh Typing (03/31/2019 10:13 AM EST) ABORH Type A Pos [facility] Blood specimen (specimen) 03/31/2019 10:13 AM EST 03/31/2019 10:16 AM EST Narrative Resulting Agency Comment Spec In Lab Judy Álvarez MD BLOOD BANK LAB ORDERABLES Performing Organization Address [facility] de Phone Number [facility] [place] [address] documented in this encounter Visit Diagnoses Not [...] mg, Oral, EVERY EVENING, First dose on 04/04/19 at 2000, Until Discontinued, Routine Given 04/04/2019 [...] PRN, Starting on Sun04/03/19 at 0606, Until Sun04/05/19 at 1741, Irritation, Routine Given 04/03/2019 6:35 [...] Claribel Dias RN) 0533 (Given - Provider: lCaribel Dias RN)1124 (Given - Provider: Lidia Spangler [...] on 04/05/19 at 0900, Until Discontinued, Routine 816 (Given - Provider: Mackenzie White RN) atorvastatin [...] Discontinued, Remove nicotine 21 mg/24 hr patch 09 (Patch Removed - Provider: Lidia Spangler RN) 09 (Patch Removed - Provider: Lidia Spangler RN) 0900 (Patch Removed - Provider: Mackenzie White RN) nicotine (NICODERM CQ) 21 mg/24 hr patch Patch Verification(Linked Group 2) Transdermal, 2 TIMES DAILY, First dose on Sun04/02/19 at 0900, Until Discontinued, Verify nicotine 21 mg/24 hr patch 09 (Patch (dose and location) verified - [...] dose on Sun04/01/19 at 0900, Until Discontinued 09 (Given - Provider: Lidia Spangler RN)2049 (Given - Provider: Claribel Dias RN) 0850 (Given - Provider: Lidia Spangler RN)2116 (Given - Provider: Roxie Barroso RN) 08 (Given - Provider: Mackenzie White RN) polyethylene [...] Discontinued documented in this encounter Care Teams Soldering Machine Operator Automatic Relationship Specialty Start Date End Date Beena Wilkes, SHEREE [address] [place] [address] PCP - General Family Medicine 01/13/19 03/02/22 documented as of this encounter
--- OUTSIDE RECORDS SUMMARY | 2024-04-10 15:00 | XMS_ITS | Encounter Summary ---
Author Organization [facility] [place] [address] Care Team Providers Care Street Light Repairer Name Role Phone Beena Wilkes APRN Primary Care Provider [phone] Reason for Referral * Diagnostic Test (Routine) - Closed Specialty Diagnoses / Procedures Referred By Contac t Referred To Contact Diagnoses Aortoiliac occlusive disease Procedures SHA, legs, multiple levels Pete Álvarez MD [facility] [place] [address] [facility] [address] [place] [address] Referral ID Status Reason Start Date Expiration Date V isits Requested Visits Authorized [id number] Closed Test Only 02/11/2021 02/11/2022 1 1 Encounter Details Date Type Department Care Team (Late st Contact Info) Description 02/11/2021 Orders Only [place] [address] Emmy Green, GIN CLERK Aortoiliac occlusive disease Social History Tobacco [...] Text Report Department: Vascular Surgery Lab Patient: [id number] (EMILIANA FARMER) CPT: 96933 Referring Physician: PETE ÁLVAREZ ?? Phone: Indications: [...] aorta documented in this encounter Care Teams Street Light Repairer Relationship Specialty Start Date End Date Beena Wilkes, SHEREE [address] [place] [address] PCP - General Family Medicine 01/13/19 03/02/22 documented as of this encounter
--- OUTSIDE RECORDS SUMMARY | 2024-04-10 15:00 | XMS_ITS | Encounter Summary ---
Author Organization [facility] Address [facility] [place] [place] [address] Care Team Providers Care Appointment Coordinator Name Role Phone Beena Wilkes APRN Primary Care Provider [phone] Reason for Visit * Reason Comments Wound Check wound check 2 wk Encounter Details Date Type Department Care Team (Late st Contact Info) Description 04/15/2019 3:00 PM EST Office Visit [place] [address] Claudine Helm PA [facility] [place] [address] Intermittent claudication Social History Tobacco Use Types [...] claudication I73.9 ??? History of renal stent [id number] ??? Hypertension I10 ??? Aortoiliac occlusive disease [...] sites well- healed without signs of infection, baram removed in clinic today. Recommend patient continue [...] unspecified documented in this encounter Care Teams Appointment Coordinator Relationship Specialty Start Date End Date Beena Wilkes APRN [address] [place] [address] PCP - General Family Medicine 01/13/19 03/02/22 documented as of this encounter
--- OUTSIDE RECORDS SUMMARY | 2024-04-10 15:00 | XMS_ITS | Encounter Summary ---
Author Organization [facility] Address [facility] [place] [address] Care Team Providers Care Renal Dialysis Technician Name Role Phone Beena Wilkes APRN Primary Care Provider [phone] Encounter Details Date Type Department Care Team (Late st Contact Info) Description 10/03/2019 10:00 AM EDT TH Visit (TeleHealth) [place] [address] Judy Gilbert MD [facility] [place] [address] PAD (peripheral artery disease) Social History Tobacco [...] claudication I73.9 ??? History of renal stent [id number] ??? Hypertension I10 ??? 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
--- OUTSIDE RECORDS SUMMARY | 2024-04-10 15:00 | XMS_ITS | Encounter Summary ---
Author Organization [facility] [place] [address] Care Team Providers Care Brick Chimney Supervisor Name Role Phone Beena Wilkes APRN Primary Care Provider [phone] Encounter Details Date Type Department Care Team (Late st Contact Info) Description 02/11/2021 Orders Only [place] [address] Emmy Green, MANAGER HOME IMPROVEMENT Intermittent claudication; PAD (peripheral artery disease) Social [...] unspecified documented in this encounter Care Teams Brick Chimney Supervisor Relationship Specialty Start Date End Date Beena Wilkes APRN [address], [place] [address] PCP - General Family Medicine 01/13/19 03/02/22 documented as of this encounter
--- OUTSIDE RECORDS SUMMARY | 2024-04-10 15:00 | XMS_ITS | Encounter Summary ---
Author Organization [facility] Address [facility] [place] [address] Care Team Providers Care Chop Saw Operator Name Role Phone Beena Wilkes APRN Primary Care Provider [phone] Encounter Details Date Type Department Care Team (Late st Contact Info) Description 05/02/2019 11:45 AM EST Office Visit [place] [id number] Pete Álvarez MD [facility] [place] [address] Aortoiliac occlusive disease Social History Tobacco Use [...] documented in this encounter Progress Notes * Peet Álvarez MD - 05/02/2019 11:45 AM EST [...] claudication I73.9 ??? History of renal stent [id number] ??? Hypertension I10 ??? 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
--- OUTSIDE RECORDS SUMMARY | 2024-04-10 15:00 | XMS_ITS | Encounter Summary ---
Author Organization [facility] [place] [address] Care Team Providers Care Referral Nurse Name Role Phone Beena Wilkes APRN Primary Care Provider [phone] Encounter Details Date Type Department Care Team (Late st Contact Info) Description 04/03/2019 Telephone [place] [phone] Gris Chisholm Social History Tobacco Use Types [...] on filedocumented in this encounter Care Teams Referral Nurse Relationship Specialty Start Date End Date Beena Wilkes APRN [address] [place] [address] PCP - General Family Medicine 01/13/19 03/02/22 documented as of this encounter
--- OUTSIDE RECORDS SUMMARY | 2024-04-10 15:00 | XMS_ITS | Encounter Summary ---
Author Organization [facility] [place] [address] Care Team Providers Care Belt Lacer Name Role Phone Beena Wilkes APRN Primary Care Provider Encounter Details Date Type Department Care Team (Late st Contact Info) Description 05/02/2019 9:30 AM EST Tech Visit [place] [address] Navarro Gilbert, GERRY Peripheral vascular [...] Text Report Department: Vascular Surgery Lab Patient: [id number] (EMILIANA FARMER) CPT: 32954 ICD10: Z48.812;I74.09;I 73.9 Referring Physician: PETE GILBERT [...] Text Report Department: Vascular Surgery Lab Patient: [id number] (EMILIANA FARMER) CPT: 03071 ICD10: Z48.812;I73.9;I74. 5 Referring Physician: PETE GILBERT [...] aorta documented in this encounter Care Teams Belt Lacer Relationship Specialty Start Date End Date Beena Wilkes, SHEREE [address] [place] [address] PCP - General Family Medicine 01/13/19 03/02/22 documented as of this encounter
--- OUTSIDE RECORDS SUMMARY | 2024-04-10 15:00 | XMS_ITS | Encounter Summary ---
Author Organization [facility] [place] [address] Care Team Providers Care Roll Scale Man Name Role Phone Beena Wilkes APRN Primary Care Provider [phone] Reason for Visit * Reason Onset Date Comments Nicotine Dependence 05/08/2019 1 month foll ow-up Encounter Details Date Type Department Care Team (Late st Contact Info) Description 05/08/2019 Telephone [place] [address] Buck Watts, RN Nicotine Dependence [...] in the future. Buck Watts, MSN, RN-, [facility] Tobacco Health Advocate [facility] Pager #[phone] documented in this encounter Plan of Treatment Not on file documented as of this encounter Visit Diagnoses Not on filedocumented in this encounter Care Teams Roll Scale Man Relationship Specialty Start Date End Date Beena Wilkes, ACETYLENE OPERATOR [address] [facility] [place] [address] PCP - General Family Medicine 01/13/19 03/02/22 documented as of this encounter
--- OUTSIDE RECORDS SUMMARY | 2024-04-10 15:00 | XMS_ITS | Encounter Summary ---
Author Organization [facility] [place] [address] Care Team Providers Care Yarder Operator Name Role Phone Beena Wilkes APRN Primary Care Provider [phone] Reason for Visit * Reason Onset Date Comments Letter for School/Work 05/20/2019 Requested a Return to Work Letter Encounter Details Date Type Department Care Team (Late st Contact Info) Description 05/20/2019 Telephone [place]ascular [place] [address] Salma Romeo RN Letter for School/Work (Requested [...] on filedocumented in this encounter Care Teams Yarder Operator Relationship Specialty Start Date End Date Beena Wilkes, CHILD ADOLESCENT CARE [address] [facility] [place] [address] PCP - General Family Medicine 01/13/19 03/02/22 documented as of this encounter
--- OUTSIDE RECORDS SUMMARY | 2024-04-10 15:00 | XMS_ITS | Encounter Summary ---
[place] [address] Care Team Providers Care Gas System Operator Name Role Phone Beena Wilkes APRN Primary Care Provider [phone] Encounter Details Date Type Department Care Team (Late st Contact Info) Description 04/01/2019 11:59 PM EST Anesthesia Event [facility] [place] [address] Sebastian Bansal RN Anesthesia Record [...] on filedocumented in this encounter Care Teams Gas System Operator Relationship Specialty Start Date End Date Beena Wilkes APRN [address] [place] [address] PCP - General Family Medicine 01/13/19 03/02/22 documented as of this encounter
--- OUTSIDE RECORDS SUMMARY | 2024-04-10 15:00 | XMS_ITS | Encounter Summary ---
Author Organization [facility] [place] [address] Care Team Providers Care Furnace Mechanic Name Role Phone Beena Wilkes APRN Primary Care Provider [phone] Encounter Details Date Type Department Care Team (Late st Contact Info) Description 02/11/2021 9:30 AM EDT Tech [place] [address] Vikash Black [place] Aortoiliac occlusive [...] Text Report Department: Vascular Surgery Lab Patient: [id number] (EMILIANA FARMER) CPT: 33923 ICD10: I74.09 Referring Physician: PETE GILBERT ?? [...] aorta documented in this encounter Care Teams Furnace Mechanic Relationship Specialty Start Date End Date Beena Wilkes, GENERAL CLAIMS AGENT [address] [place] [address] PCP - General Family Medicine 01/13/19 03/02/22 documented as of this encounter
--- OUTSIDE RECORDS SUMMARY | 2024-04-10 15:01 | XMS_ITS | Encounter Summary ---
Author Organization [facility] Address [facility] [place] [address] Care Team Providers Care Shearing Machine Tender Name Role Phone Jorge Luisedison Saundra Edison BENTLEY Primary Care Provider [phone] Encounter Details Date Type Department Care Team (Late st Contact Info) Description 04/15/2018 1:00 PM EST Office Visit [place] [address] Radha Emery APRN [facility] [place] [address] Stenosis of aorta; Iliac artery stenosis, bilateral [...] hypertension, right renal artery stenosis sp angioplasty [id number], and short distance bilateral buttocks and thigh [...] ND, no palpable pulsatile masses Extremity - [place], warm, no ulceration, brisk capillary refill, no [...] Text Report Department: Vascular Surgery Lab Patient: [id number] (SMOOTH EMILIANA) CPT: 08957 ICD10: I77.1;Q25.3 Referring Physician: RADHA EMERY APRN [...] artery documented in this encounter Care Teams Shearing Machine Tender Relationship Specialty Start Date End Date Saundra Reddy WINDOW FRAMER PCP - General Family Medicine 01/02/18 12/02/18 documented as of this encounter
--- OUTSIDE RECORDS SUMMARY | 2024-04-10 15:01 | XMS_ITS | Encounter Summary ---
Author Organization [facility] Address [facility] [place] [address] Care Team Providers Care High Speed Operator Name Role Phone Beena Wilkes APRN Primary Care Provider [phone] Encounter Details Date Type Department Care Team (Late st Contact Info) Description 01/23/2019 Telephone [place] [address] Iris Farmer RN Social History Tobacco Use [...] on filedocumented in this encounter Care Teams High Speed Operator Relationship Specialty Start Date End Date Beena Wilkes APRN [address], [place] [address] PCP - General Family Medicine 01/13/19 03/02/22 documented as of this encounter
--- OUTSIDE RECORDS SUMMARY | 2024-04-10 15:01 | XMS_ITS | Encounter Summary ---
Author Organization [facility] Address [facility] [place] [address] Care Team Providers Care Diet Assistant Name Role Phone Beena Wilkes APRN Primary Care Provider [phone] Reason for Visit * Reason Comments Medication Refill Encounter Details Date Type Department Care Team (Late st Contact Info) Description 04/28/2018 [place]ill [place] [address] Yves Treviño MD [facility] [place] [address] Social History Tobacco Use Types Packs/Day Years [...] on filedocumented in this encounter Care Teams Diet Assistant Relationship Specialty Start Date End Date Beena Wilkes APRN [address] [place] [address] PCP - General Family Medicine 01/13/19 03/02/22 documented as of this encounter
--- OUTSIDE RECORDS SUMMARY | 2024-04-10 15:01 | XMS_ITS | Encounter Summary ---
Author Organization [facility] Address [facility] [place] [address] Care Team Providers Care Publishing Agent Name Role Phone None Primary Care Provider Unavailabl e Reason for Referral * Diagnostic Test (Routine) - Closed Specialty Diagnoses / Procedures Referred By Contwilberto t Referred To Contact Radiology Diagnoses PVD (peripheral vascular disease) with claudication Procedures CT Angiogram Aorta Lower Extremity Runoff Laura Quiros APRN [facility] [place] [address] [facility] [place] [address] Referral ID Status Reason Start Date Expiration Date V isits Requested Visits Authorized [id number] Closed Specialty Service Requested 12/03/2018 12/03/2019 1 1 Encounter Details Date Type Department Care Team (Late st Contact Info) Description 12/03/2018 9:00 AM EDT Office [place] [address] Laura Quiros APRN [facility] [place] [address] PVD (peripheral vascular disease) with [...] this encounter Progress Notes * Laura Quiros, ACCOUNT AUDITOR - 12/03/2018 9:00 AM EDT Reason for Visit:F/u SHA's HPI: 53F??former??smoker??(quit Dec, 2017)??with hypertension, right renal artery stenosis sp angioplasty [id number], and short distance bilateral buttocks and thigh claudication related to aortoiliac disaese. Pt reports cramping pain in her thighs, right worse than left after walking 50 feet. 53F??former??smoker??(quit Dec, 2017)??with hypertension, right renal artery stenosis sp angioplasty [id number], and short distance bilateral buttocks and thigh [...] claudication I73.9 ??? History of renal stent [id number] ??? Hypertension I10 ??? Aortoiliac occlusive disease [...] claudication I73.9 ??? History of renal stent [id number] ??? Hypertension I10 ??? Aortoiliac occlusive disease [...] ND, no palpable pulsatile masses Extremity - [place], warm, no ulceration, brisk capillary refill, no [...] Jaimes. 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 ? Electronically signed by: Amarjit Zimmerman [facility] ([phone]), at 01/17/2019 4:21 PM Narrative 01/17/2019 4:21 [...] was performed following intravenous administration of contrast. Vkvpuddxujje035.0 ml of OMNIPAQUE 350.00 mg/ml. MPRs were [...] number below. Electronically signed by: Amarjit Zimmerman [facility]([phone]), at 01/17/2019 4:21 PM Laura Quiros APRN [facility] ORDERABLES * (ABNORMAL) Creatinine (01/17/2019 11:45 AM EDT) Creatinine 0.61(L) 0.70 - 1.20 mg/dL [facility] Est Glomerular Filtration Rate 104 >=60 mL/min/1.7 3 m?? [facility] Comment: The eGFR was calculated using the CKD-EPI equation. As with all creatinine based estimates of kidney function, eGFR values calculated with the CKD-EPI equation are not accurate in patients with acute kidney failure, extremes of body mass or the acutely ill. http://[employer]/[facility] CITY[facility] eGFR 120 >=60 mL/min/1.7 3 m?? [facility] Comment: The eGFR was calculated using the CKD-EPI equation. As with all creatinine based estimates of kidney function, eGFR values calculated with the CKD-EPI equation are not accurate in patients with acute kidney failure, extremes of body mass or the acutely ill. http://[email or web address] Blood specimen (specimen) 01/17/2019 11:45 AM EDT 01/17/2019 11:50 AM EDT Narrative Resulting Agency Comment Spec In Lab Laura Quiros APRN CHEMISTRY ORDERABL ES [facility] [place] [address] documented in this encounter Visit Diagnoses Diagnosis PVD (peripheral vascular disease) with claudication Peripheral vascular disease, unspecified PVD (peripheral vascular disease) with claudication Peripheral vascular disease, unspecified documented in this encounter Care Teams Publishing Agent Relationship Specialty Start Date End Date None None PCP - General 12/03/18 01/12/19 documented as of this encounter
--- OUTSIDE RECORDS SUMMARY | 2024-04-10 15:01 | XMS_ITS | Encounter Summary ---
Author Organization [facility] Address [facility] [place] [address] Care Team Providers Care Caltrans Equipment Operator Name Role Phone KyleBeena cline SHEREE Primary Care Provider [phone] Reason for Referral * Diagnostic Test (Routine) - Closed Specialty Diagnoses / Procedures Referred By Contac t Referred To Contact Radiology Diagnoses PAD (peripheral artery disease) Procedures NM Pharmacologic Stress CT Component Rashawn Dawn MD [facility] [place] [address] [place] [address] Referral ID Status Reason Start Date Expiration Date V isits Requested Visits Authorized [id number] Closed Specialty Service Requested 01/28/2019 01/28/2020 1 1 Reason for Visit * Diagnostic Test (Routine) - Closed Specialty Diagnoses / Procedures Referred By Contac t Referred To Contact Radiology Diagnoses PAD (peripheral artery disease) Procedures NM Pharmacologic Stress CT Component Rashawn Dawn MD [facility] [address] [place] [address] Referral ID Status Reason Start Date Expiration Date V isits Requested Visits Authorized [id number] Closed Specialty Service Requested 01/28/2019 01/28/2020 1 1 Encounter Details Date Type Department Care Team (Latest Contact Info) Description 03/06/2019 7:09 AM EDT Hospital Encounter [place] [phone] Rashawn Dawn MD [facility] [place] [address] PAD (peripheral artery disease) Discharge Disposition: Home [...] Sig Dispensed Refills Start Date End Date acetaminophen (TYLENOL) 325 mg Tablet Take 2 [...] below. ? Electronically signed by: Macario Sheldon [facility] ([phone]), at 03/06/2019 1:54 PM Narrative 03/06/2019 1:54 [...] number below. Electronically signed by: Macario Sheldon [facility]([phone]), at 03/06/2019 1:54 PM Rashawn Dawn MD [facility] ORDERABLES documented in this encounter Visit Diagnoses Diagnosis PAD (peripheral artery disease) Peripheral vascular disease, unspecified documented in this encounter Care Teams Caltrans Equipment Operator Relationship Specialty Start Date End Date Arlet Wilkesh, STYRENE DEHYDRATION REACTOR OPERATOR [address] [place] [address] PCP - General Family Medicine 01/13/19 03/02/22 documented as of this encounter
--- OUTSIDE RECORDS SUMMARY | 2024-04-10 15:01 | XMS_ITS | Encounter Summary ---
Author Organization [facility] Address [facility] [place] [address] Care Team Providers Care Sales And Marketing Director Name Role Phone Jorge Luisedison Saundra Edison BENTLEY Primary Care Provider [phone] Encounter Details Date Type Department Care Team (Latest Contact Info) Description 07/09/2018 8:00 AM EST Office Visit [place] [address] Radha Emery APRN [facility] [place] [address] Iliac artery stenosis, bilateral; Stenosis of infrarenal [...] hypertension, right renal artery stenosis sp angioplasty [id number], and short distance bilateral buttocks and thigh [...] ND, no palpable pulsatile masses Extremity - [place], warm, no ulceration, brisk capillary refill, no [...] Text Report Department: Vascular Surgery Lab Patient: [id number] (SMOOTH EMILIANA) CPT: 42273 ICD10: I70.0;I77.1 Referring Physician: RADHA EMERY APRN [...] 0.56(-.38) 0.44 ? 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
--- OUTSIDE RECORDS SUMMARY | 2024-04-10 15:01 | XMS_ITS | Encounter Summary ---
Author Organization [facility] Address [facility] [place] [address] Care Team Providers Care Director Operations Name Role Phone Beena Wilkes APRN Primary Care Provider [phone] Encounter Details Date Type Department Care Team (Late st Contact Info) Description 03/10/2019 [place] [phone] Rashawn Dawn MD [facility] [place] [address] Social History Tobacco Use Types Packs/Day Years [...] on filedocumented in this encounter Care Teams Director Operations Relationship Specialty Start Date End Date Beena Wilkes, STUDIO OPERATIONS ENGINEER IN CHARGE [address] [place] [address] PCP - General Family Medicine 01/13/19 03/02/22 documented as of this encounter
--- OUTSIDE RECORDS SUMMARY | 2024-04-10 15:01 | XMS_ITS | Encounter Summary ---
Author Organization [facility] Address [facility] [place] [address] Care Team Providers Care Cloth Colorer Name Role Phone Beena Wilkes APRN Primary Care Provider [phone] Encounter Details Date Type Department Care Team (Late st Contact Info) Description 03/07/2019 10:15 AM EDT [place] [address] Social History Tobacco Use Types Packs/Day Years [...] on filedocumented in this encounter Care Teams Cloth Colorer Relationship Specialty Start Date End Date Beena Wilkes APRN [address] [place] [address] PCP - General Family Medicine 01/13/19 03/02/22 documented as of this encounter
--- OUTSIDE RECORDS SUMMARY | 2024-04-10 15:01 | XMS_ITS | Encounter Summary ---
Author Organization [facility] [place] [address] Care Team Providers Care Motor Vehicle Field Representative Name Role Phone Beena Wilkes APRN Primary Care Provider [phone] Encounter Details Date Type Department Care Team (Late st Contact Info) Description 01/23/2019 Orders [place] [address] Iris Farmer RN PAD (peripheral artery disease) [...] (Bezet) 477 ms MUSE SYSTEM Calculated P [place] 64 degrees MUSE SYSTEM Calculated R [place] 60 degrees MUSE SYSTEM Calculated T [place] -39 degrees MUSE SYSTEM INTERPRETATION Normal sinus [...] EDT) Prealbumin 33 20 - 40 mg/dL [facility] Comment: Prealbumin levels are generally lower in the pediatric population; adult concentrations are usually attained near puberty. Blood specimen (specimen) 01/28/2019 11:11 AM EDT 01/28/2019 11:40 AM EDT Narrative Resulting Agency Comment Spec In Lab Judy Gilbert MD CHEMISTRY ORDER ZAINA [facility] [place] [address] * (ABNORMAL) Basic Metabolic Panel (non-fasting) (01/28/2019 11:11 AM EDT) Glucose 120 65 - 199 mg/dL [facility] Comment:Diabetes: >=200 mg/d L plus symptoms Blood Urea Nitrogen 12 8 - 18 mg/dL [facility] Creatinine 0.53(L) 0.70 - 1.20 mg/dL [facility] Sodium 139 135 - 145 mmol/L [facility] Potassium 4.4 3.5 - 5.0 mmol/L [facility] Comment: Please note: ??Patients with WBC >100,000 may have falsely elevated Potassium levels. ??For accurate Potassium quantification in these patients send serum separator tube (gold top) for subsequent determinations. ??Contact the Clinical Chemistry Laboratory if there are any questions. Chloride 101 98 - 107 mmol/L [facility] Carbon Dioxide 27 22 - 31 mmol/L [facility] Anion Gap 11 5 - 15 mmol/L [facility] Calcium 9.2 8.5 - 10.5 mg/dL [facility] Est Glomerular Filtration Rate 108 >=60 mL/min/1. 73 m?? [facility] Comment: The eGFR was calculated using the CKD-EPI equation. As with all creatinine based estimates of kidney function, eGFR values calculated with the CKD-EPI equation are not accurate in patients with acute kidney failure, extremes of body mass or the acutely ill. http://[employer]/[facility]MANnkf eGFR 126 >=60 mL/min/1. 73 m?? [facility] Comment: The eGFR was calculated using the CKD-EPI equation. As with all creatinine based estimates of kidney function, eGFR values calculated with the CKD-EPI equation are not accurate in patients with acute kidney failure, extremes of body mass or the acutely ill. http://[employer]/[facility] Blood specimen (specimen) 01/28/2019 11:11 AM EDT 01/28/2019 11:40 AM EDT Narrative Resulting Agency Comment Spec In Lab Judy Gilbert MD CHEMISTRY ORDER ZAINA [facility] [place] [address] * (ABNORMAL) Hemogram (01/28/2019 11:11 AM EDT) White Blood Cell 6.6 4.0 - 9.5 x10(3)/mc L [facility] Red Blood Cell 4.16 4.00 - 5.21 x10(6)/mc L [facility] Hemoglobin 13.3 11.7 - 15.5 gm/dL [facility] Hematocrit 40.4 35.7 - 45.8 % [facility] Mean Cell Volume 97.1(H) 82.6 - 94.4 fL [facility] Mean Cell Hemoglobin 32.0 27.1 - 32.0 pg [facility] Mean Cell Hemoglobin Concentration 32.9 31.7 - 35.0 gm/dL [facility] Platelet 287 145 - 357 x10(3)/mc L [facility] RDW Standard Deviation 44.3 37.0 - 46.0 fL [facility] RDW coefficient of variation 12.3 11.5 - 14.1 % [facility] Mean Platelet Volume 10.0 7.6 - 12.9 fL [facility] NRBC% auto 0.0 % [facility] NRBC Absolute 0.000 0.000 - 0.000 x10(3)/mc L [facility] Blood specimen (specimen) 01/28/2019 11:11 AM EDT 01/28/2019 11:40 AM EDT Narrative Resulting Agency Comment Spec In Lab Judy Gilbert MD HEMATOLOGY HALEY GARCIA Performing Organization Address City/State/[facility] Co de Phone Number [facility] [address] documented in this encounter Visit Diagnoses Diagnosis PAD (peripheral artery disease) Peripheral vascular disease, unspecified documented in this encounter Care Teams Motor Vehicle Field Representative Relationship Specialty Start Date End Date Beena Wilkes, SHEREE [address] [place] [address] PCP - General Family Medicine 01/13/19 03/02/22 documented as of this encounter
--- OUTSIDE RECORDS SUMMARY | 2024-04-10 15:01 | XMS_ITS | Encounter Summary ---
Author Organization [facility] [place] [address] Care Team Providers Care Geophysical Drafter Name Role Phone Saundra Reddy Sunil BENTLEY Primary Care Provider [phone] Encounter Details Date Type Department Care Team (Late st Contact Info) Description 07/09/2018 7:30 AM EST Tech [place] [address] Vikash Black [place] Stenosis of aorta; Iliac [...] Text Report Department: Vascular Surgery Lab Patient: [id number] (EMILIANA FARMER) CPT: 93810 ICD10: I77.1;Q25.3 Referring Physician: RADHA EMERY APRN [...] artery documented in this encounter Care Teams Geophysical Drafter Relationship Specialty Start Date End Date Saundra Reddy APRN PCP - General Family Medicine 01/02/18 12/02/18 documented as of this encounter
--- OUTSIDE RECORDS SUMMARY | 2024-04-10 15:01 | XMS_ITS | Encounter Summary ---
Author Organization [place] [address] Care Team Providers Care Director Of Medicare Name Role Phone Saundra Reddy SHEREE Primary Care Provider [phone] Reason for Visit * Auth/Cert Specialty Diagnoses / Procedures Referred By Beverley t Referred To Contact Diagnoses claudication Procedures PRO ENDOVASC REPAIR DEPLOYMENT [id number] ENDOGRAFT 1 Referral ID Status Reason Start Date Expiration Date Visits Re quested Visits Authorized [id number] 1 1 Encounter Details Date Type Department Care Team (Late st Contact Info) Description 03/05/2018 7:30 AM EDT - 03/05/2018 11:38 AM EDT Surgery [place] [address] Angel Mccullough MD [facility] [place] [address] TRANSCATH PLACEMENT INTRAVASCULAR STENT, OPN/PERQ, INITIAL ARTERY, [...] hypertension, right renal artery stenosis sp angioplasty [id number], and short distance bilateral buttocks and thigh [...] in 170s systolic. 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 General Instructions None Future Appointments and Orders Future Appointments and Orders Future Appointments Provider Department Dept Phone 04/15/2018 12:30 PM Azucena Evans [place] [facility] [place] Arrive at: Converter Supervisor Area 3V [phone] 04/15/2018 1:00 PM Radha Emery APRN Vascular Surgery at [place] Arrive at: Converter Supervisor Area 3V [phone] Future Orders Complete By Expires SHA, legs, multiple levels [VAS8 Custom] 04/06/2018 (Approximate) 03/06/2019 Process Instructions: There is no in-house vascular laborer stores available on weeknights (5pm-8am), weekends, or holidays. IF THIS IS A REQUEST FOR AN EMERGENT STUDY DURING THOSE HOURS, please have the senior provider responsible for the patient page the Vascular Surgery Fellow/Senior Resident configuration release manager to discuss options. Scheduling Instructions: Questions: Indication for study/signs & symptoms: s/p aortic and iliac stent graft placement Question to be answered: bloodflow to feet Which DH location will this be performed?: [place] Discharge References/Attachments: Discharge References/Attachments None Electronically Signed [...] For any problems or questions please call [phone] TOR Broussard, trailhead maintenance worker Nurse Clinician For issues on weeknights after 5pm and weekends please call [phone] and ask for the Vascular Fellow configuration release manager. documented in this encounter Medications at [...] stent and bilat common iliac stents, left HEALTH WORKER cutdown Int Pt seen on pm [...] MD/GLENNY, PGY-5 Section of Vascular Surgery, Pager [phone] Associated attestation - Angel Mccullough MD - [...] hypertension, right renal artery stenosis sp angioplasty [id number], and short distance bilateral buttocks and thigh [...] in 170s systolic. 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 Patient Name: Walker Farmer : [id number] MR#: [id number] ?? Case Date: 03/05/2018 ?? Surgeon: Surgeon(s) and Role: * Angel Mccullouhg MD - Primary * Judy Figueroa MD - Resident-Recreation Manager ?? 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 Procedures: Bard Lifestyle 14 x 40 stent in distal-most abdominal aorta (33780) 7 x 59 iCast stent graft in right common iliac artery (76119) 7 x 59 iCast stent graft in left common iliac artery (03991) Anesthesia: General ?? Findings: Failure of percutaneous [...] Implant Name Type Inv. Item Serial No. Patient Access Coordinator Lot No. LRB No. Used Action STENT,LSTAR,VASC,[id number],80CM ([id number]) - [id number] IMPLANTS STENT,LSTAR,VASC,[id number],80CM ([id number]) ?? [employer] - CR BARD [id number] N/A 1 Implanted STENT,ICAST,CVR,8X59MM,80CM ([id number]) - [id number] IMPLANTS STENT,ICAST,CVR,8X59MM,80CM ([id number]) [id number] [employer]E GR ?? N/A 1 Wasted STENT,ICAST,CVR,7X59MM,120CM ([id number]) - [id number] IMPLANTS STENT,ICAST,CVR,7X59MM,120CM ([id number] [employer] GR ?? Left 1 Implanted STENT,ICAST,CVR,7X59MM,120CM ([id number]) - [id number] IMPLANTS STENT,ICAST,CVR,7X59MM,120CM ([id number] [employer] GR ?? Right 1 Implanted ? PRBCs: none (See Anesthesia Record/Report for Other Blood Products) Urine Output: 600 mL ?? Drains: None ?? Disposition: PACU ?? Condition: Stable HPI: 53F former smoker (quit Dec, 2017) with hypertension, right renal artery stenosis sp angioplasty [id number], and short distance bilateral buttocks and thigh [...] in 170s systolic. 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 Heparin was given. Using a stiff Glidewire and NTA catheter we were able to cross the lesions in the iliac and infrarenal aorta and advanced the stiff Glidewire into the descending thoracic part of the aorta. We attempted to proceed the same procedure on the left side. An 18 Nigerian needle was used to access the left common femoral artery. However despite multiple attempts at access (with 4 attempts at puncturing the artery), due to the small caliber of the vessel we were unable to successfully advance a Jordan wire. Therefore at that point we elected [...] artery proximal and distal. With an 18 Nigerian needle we are able to access the [...] wires through an NTA catheter. The 5 Nigerian sheaths were exchanged for 25 cm 7 Nigerian long sheaths. On the left side a [...] placing the common iliac stents. The 7 Nigerian sheaths were advanced into the infrarenal aorta. 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 Item Serial No. Patient Access Coordinator Lot No. LRB No. Used Action STENT,LSTAR,VASC,[id number],80CM ([id number]) - [id number] IMPLANTS STENT,LSTAR,VASC,[id number],80CM ([id number]) [employer] - [employer] BARD [id number] N/A 1 Implanted STENT,ICAST,CVR,8X59MM,80CM ([id number]) - [id number] IMPLANTS STENT,ICAST,CVR,8X59MM,80CM ([id number]) [id number] [employer] N/A 1 Wasted STENT,ICAST,CVR,7X59MM,120CM ([id number]) - [id number] IMPLANTS STENT,ICAST,CVR,7X59MM,120CM ([id number] [employer] Left 1 Implanted STENT,ICAST,CVR,7X59MM,120CM ([id number]) - [id number] IMPLANTS STENT,ICAST,CVR,7X59MM,120CM ([id number] [employer] Right 1 [...] METABOLIC PANEL Routine 03/05/2018 6:42 AM EDT BEST WORKER SCAN 03/05/2018 12:00 AM EDT IMPLANTABLE DEVICES SCAN 03/05/2017 12:00 AM EDT documented in this encounter Results * SHA, legs, multiple levels (04/15/2018 12:17 PM EST) VB Text Report Department: Vascular Surgery Lab Patient: [id number] (WALKER FARMER) CPT: 71434 ICD10: I73.9;I74.09 Referring Physician: ANGEL MCCULLOUGH ?? [...] Text Report Department: Vascular Surgery Lab Patient: [id number] (WALKER FARMER) CPT: 90051 ICD10: I74.09;I73.9 Referring Physician: ANGEL MCCULLOUGH ?? [...] AM EDT) Neutrophil % Manual 81 % [facility] Lymphocyte Manual 17 % [facility] Monocyte Manual 2 % [facility] Neutrophil Absolute (ANC) - Manual 11.9(H) 1.5 - 6.3 x10(3)/[facility] LABORATORY Neutrophil Absolute (ANC) - Automated 11.91(H) 1.70 - 6.10 x10(3)/[facility] LABORATORY Lymph Absolute Manual 2.5 1.0 - 3.6 x10(3)/[facility]ORATORY Monocyte Absolute Manual 0.3 0.2 - 1.0 x10(3)/[facility] LABORATORY Total Cells Ct 100 [facility] Plat estimate Normal [facility] RBC Morphology Normal [facility] Hyperseg Neutro Present [facility] Blood specimen (specimen) 03/06/2018 4:40 AM EDT 03/06/2018 4:46 AM EDT Narrative Resulting Agency Comment Spec In Lab Judy Figueroa MD HEMATOLOGY ORDERABLE S [facility] [place] [address] * (ABNORMAL) Hemogram (03/06/2018 4:40 AM EDT) White Blood Cell 14.7(H) 4.0 - 9.5 x10(3)/mc L [facility] Red Blood Cell 3.43(L) 4.00 - 5.21 x10(6)/mc L [facility] Hemoglobin 11.1(L) 11.7 - 15.5 gm/dL [facility] Hematocrit 32.4(L) 35.7 - 45.8 % [facility] Mean Cell Volume 94.5(H) 82.6 - 94.4 fL [facility] Mean Cell Hemoglobin 32.4(H) 27.1 - 32.0 pg [facility] Mean Cell Hemoglobin Concentration 34.3 31.7 - 35.0 gm/dL [facility] Platelet 236 145 - 357 x10(3)/mc L [facility] RDW Standard Deviation 44.4 37.0 - 46.0 [facility] RDW coefficient of variation 13.0 11.5 - 14.1 % [facility] Mean Platelet Volume 9.7 7.6 - 12.9 fL [facility] NRBC% auto 0.0 % [facility] NRBC Absolute 0.000 0.000 - 0.000 x10(3)/mc L [facility] Blood specimen (specimen) 03/06/2018 4:40 AM EDT 03/06/2018 4:46 AM EDT Narrative Resulting Agency Comment Spec In Lab Judy Figueroa MD HEMATOLOGY ORDERABLE S [facility] [place] [address] * (ABNORMAL) Basic Metabolic Panel (non-fasting) (03/06/2018 4:40 AM EDT) Glucose 126 65 - 199 mg/dL [facility] Comment:Diabetes: >=200 mg/d L plus symptoms Blood Urea Nitrogen 8 8 - 18 mg/dL [facility] Creatinine 0.53(L) 0.70 - 1.20 mg/dL [facility] Sodium 137 135 - 145 mmol/L [facility] Potassium 4.1 3.5 - 5.0 mmol/L [facility] Comment: Please note: ??Patients with WBC >100,000 may have falsely elevated Potassium levels. ??For accurate Potassium quantification in these patients send serum separator tube (gold top) for subsequent determinations. ??Contact the Clinical Chemistry Laboratory if there are any questions. Chloride 104 98 - 107 mmol/L [facility] Carbon Dioxide 25 22 - 31 mmol/L [facility] Anion Gap 8 5 - 15 mmol/L [facility] Calcium 8.5 8.5 - 10.5 mg/dL [facility] Est Glomerular Filtration Rate 109 >=60 mL/min/1. 73 m?? [facility] Comment: The eGFR was calculated using the CKD-EPI equation. As with all creatinine based estimates of kidney function, eGFR values calculated with the CKD-EPI equation are not accurate in patients with acute kidney failure, extremes of body mass or the acutely ill. http://[employer]/[facility] eGFR 127 >=60 mL/min/1. 73 m?? [facility] Comment: The eGFR was calculated using the CKD-EPI equation. As with all creatinine based estimates of kidney function, eGFR values calculated with the CKD-EPI equation are not accurate in patients with acute kidney failure, extremes of body mass or the acutely ill. http://[employer]/[facility] Blood specimen (specimen) 03/06/2018 4:40 AM EDT 03/06/2018 4:46 AM EDT Narrative Resulting Agency Comment Spec In Lab Angel Mccullough MD CHEMISTRY ORDERABLES Performing Organization Address [facility] Co de Phone Number [facility] [place] [address] * IR OR VASC Aniogram Image Storage Only (03/05/2018 8:45 AM EDT) Narrative [facility] - 03/05/2018 8:45 AM EDT This exam is for storage only and is auto-finalizing. Angel Mccullough MD IMG FILM LIBRARY ORD ERABLES Performing Organization Address [facility] Co de Phone Number [place], [place] * (ABNORMAL) BLOOD GAS 2 ARTERIAL (03/05/2018 8:43 AM EDT) pH, Arterial 7.49(H) 7.35 - 7.45 [facility] PCO2, Arterial 32(L) 35 - 45 mmHg [facility] PO2, Arterial 276(H) 85 - 104 mmHg [facility] Bicarbonate, Arterial 24.0 20.0 - 26.0 mmol/L [facility] Base Excess, Arterial 0.6 -3.0 - 3.0 mmol/L [facility] Hgb Blood Gas 12.7 11.7 - 15.5 gm/dL [facility] Oxyhemoglobin, Arterial 98.2(H) 94.0 - 97.0 % [facility] Carboxyhemoglob in, Arterial 0.8 % [facility] Comment: Nonsmokers: 0.5-1.5% COHB Smokers: Variable, but usually less than 10% Toxic: 20-30% COHB Lethal: Greater than 60% COHB Methemoglobin, Arterial 0.3 <=1.5 % [facility] Na Whole Blood 138 135 - 145 mmol/L [facility] K Whole Blood 3.6 3.5 - 5.0 mmol/L [facility] Comment: Please note: Patients with WBC >100,000 may have falsely elevated Potassium levels. Contact the Clinical Chemistry Laboratory if there are any questions. ICa Whole Blood 1.12(L) 1.15 - 1.33 mmol/L [facility] Comment: Note: ??Total bilirubin higher than 20 mg/dL may lead to falsely low ionized calcium. CL Whole Blood 106 98 - 107 mmol/L [facility] Gluc Whole Bld 159 65 - 199 mg/dL [facility] Comment:Diabetes: >=200 mg/d L plus symptoms. Lactate WB 1.8 0.5 - 2.2 mmol/L [facility] Blood specimen (specimen) 03/05/2018 8:43 AM EDT 03/05/2018 8:43 AM EDT Angel Mccullough MD POINT OF CARE TEST O RDERABLES Performing Organization Address [facility]/ZIP Co de Phone Number [facility] [place] [address] * EKG 12 Lead (03/05/2018 7:04 AM EDT) Ventricular rate 72 BPM MUSE SYSTEM Atrial Rate 72 BPM MUSE SYSTEM P-R Interval 170 ms MUSE SYSTEM QRS Duration 116 ms MUSE SYSTEM Q-T Interval 452 ms MUSE SYSTEM QTC Calculated (Bezet) 494 ms MUSE SYSTEM Calculated P Cutler 59 degrees MUSE SYSTEM Calculated R Cutler 31 degrees MUSE SYSTEM Calculated T Cutler 34 degrees MUSE SYSTEM INTERPRETATION Normal sinus rhythm Left bundle branch block Abnormal ECG No previous ECGs available Confirmed by MD CALDERON JOHN ([id number]) on 03/05/2018 8:32:44 AM MUSE SYSTEM 03/05/2018 7:04 AM EDT 03/05/2018 8:32 AM EDT Angel Mccullough MD ECG ORDERABLES Performing Organization Address [facility]/ZIP Co de Phone Number MUSE SYSTEM * ABORH Recheck Status (03/05/2018 6:42 AM EDT) ABORH Recheck Order Order Placed [facility] ABORH Type Recheck Complete [facility] Blood specimen (specimen) 03/05/2018 6:42 AM EDT 03/05/2018 6:46 AM EDT Narrative Resulting Agency Comment Spec In Lab Laura Romo MD BLOOD BANK L AB ORDERABLES [facility] [place] [address] * Antibody screen (03/05/2018 6:42 AM EDT) Ab Screen Interp Negative [facility] Expires at [id number] on: 03/08/2018 [facility] Blood specimen (specimen) 03/05/2018 6:42 AM EDT 03/05/2018 6:46 AM EDT Narrative Resulting Agency Comment Spec In Lab Laura Romo MD BLOOD BANK L AB ORDERABLES Performing Organization Address City/[facility]/ZIP Co de Phone Number [facility] [place] [address] * ABO/Rh Typing (03/05/2018 6:42 AM EDT) Pathologist [facility] ABORH Type A Pos [facility] Blood specimen (specimen) 03/05/2018 6:42 AM EDT 03/05/2018 6:46 AM EDT Narrative Resulting Agency Comment Spec In Lab Laura Romo MD BLOOD BANK L AB ORDERABLES [facility] [place] [address] * (ABNORMAL) Differential, Automated (03/05/2018 6:42 AM EDT) Neutrophil % 70.6 % [facility] Neutrophil Absolute 8.01(H) 1.70 - 6.10 x10(3)/mc L [facility] Lymph % 22.8 % [facility] Lymphocytes Abs 2.6 0.9 - 3.2 x10(3)/[facility] Monocyte % 4.3 % [facility] Monocyte Abs 0.5 0.3 - 0.9 x10(3)/[facility] Eos % 1.6 % [facility] Eosinophils Abs 0.2 0.0 - 0.4 x10(3)/[facility] Basophil % 0.4 % [facility] Baso Absolute 0.0 0.0 - 0.1 x10(3)/[facility] Immature Gran % 0.30 % [facility] Comment: Immature granulocytes(IG's)percentage and absolute count will include metamyelocytes, myelocytes, and promyelocytes. Blood smears from CBCs yielding IG's will be scanned manually for concordance. If this scan disagrees with the automated IG or if promyelocytes are noted, a manual differential will be performed. Immature Gran Absolute 0.03 0.00 - 0.04 x10(3)/[facility] Blood specimen (specimen) 03/05/2018 6:42 AM EDT 03/05/2018 6:58 AM EDT Narrative Resulting Agency Comment Spec In Lab Laura Romo MD HEMATOLOGY O RDERABLES [facility] [place] [address] * (ABNORMAL) Hemogram (03/05/2018 6:42 AM EDT) White Blood Cell 11.3(H) 4.0 - 9.5 x10(3)/[facility] Red Blood Cell 4.01 4.00 - 5.21 x10(6)/[facility] Hemoglobin 12.8 11.7 - 15.5 gm/dL [facility] Hematocrit 38.3 35.7 - 45.8 % [facility] Mean Cell Volume 95.5(H) 82.6 - 94.4 fL [facility] Mean Cell Hemoglobin 31.9 27.1 - 32.0 pg [facility] Mean Cell Hemoglobin Concentration 33.4 31.7 - 35.0 gm/dL [facility] Platelet 285 145 - 357 x10(3)/mc L [facility] RDW Standard Deviation 45.1 37.0 - 46.0 fL [facility] RDW coefficient of variation 12.8 11.5 - 14.1 % [facility] Mean Platelet Volume 9.8 7.6 - 12.9 fL [facility] NRBC% auto 0.0 % [facility] NRBC Absolute 0.000 0.000 - 0.000 x10(3)/mc L [facility] Blood specimen (specimen) 03/05/2018 6:42 AM EDT 03/05/2018 6:58 AM EDT Narrative Resulting Agency Comment Spec In Lab Laura Romo MD HEMATOLOGY O RDERABLES [facility] [place] [address] * (ABNORMAL) Basic Metabolic Panel (non-fasting) (03/05/2018 6:42 AM EDT) Glucose 128 65 - 199 mg/dL [facility] Comment:Diabetes: >=200 mg/d L plus symptoms Blood Urea Nitrogen 13 8 - 18 mg/dL [facility] Creatinine 0.60(L) 0.70 - 1.20 mg/dL [facility] Sodium 142 135 - 145 mmol/L [facility] Potassium 4.3 3.5 - 5.0 mmol/L [facility] Comment: Please note: ??Patients with WBC >100,000 may have falsely elevated Potassium levels. ??For accurate Potassium quantification in these patients send serum separator tube (gold top) for subsequent determinations. ??Contact the Clinical Chemistry Laboratory if there are any questions. Chloride 103 98 - 107 mmol/L [facility] Carbon Dioxide 27 22 - 31 mmol/L [facility] Anion Gap 12 5 - 15 mmol/L [facility] Calcium 9.1 8.5 - 10.5 mg/dL [facility] Est Glomerular Filtration Rate 105 >=60 mL/min/1. 73 m?? [facility] Comment: The eGFR was calculated using the CKD-EPI equation. As with all creatinine based estimates of kidney function, eGFR values calculated with the CKD-EPI equation are not accurate in patients with acute kidney failure, extremes of body mass or the acutely ill. http://[employer] eGFR 121 >=60 mL/min/1. 73 m?? [facility] Comment: The eGFR was calculated using the CKD-EPI equation. As with all creatinine based estimates of kidney function, eGFR values calculated with the CKD-EPI equation are not accurate in patients with acute kidney failure, extremes of body mass or the acutely ill. http://[employer]/[facility] Blood specimen (specimen) 03/05/2018 6:42 AM EDT 03/05/2018 6:58 AM EDT Narrative Resulting Agency Comment Spec In Lab Angel Mccullough MD CHEMISTRY ORDERABLES [facility] [place] [address] * SCAN DOC: BEST WORKER (03/05/2018 12:00 AM EDT) Anatomical Region Laterality [...] on Sun03/06/18 at 0900, Until Discontinued, Routine 09 (Given - Provid er: Shelli Martin RN) [...] Viridiana Hyatt RN) 0910 (Given - Provider: Shelil Martin RN)1210 (Given - Provider: Shelli Martin [...] patch documented in this encounter Care Teams Director Of Medicare Relationship Specialty Start Date End Date Saundra Reddy APRN PCP - General Family Medicine 01/02/18 12/02/18 documented as of this encounter
--- OUTSIDE RECORDS SUMMARY | 2024-04-10 15:01 | XMS_ITS | Encounter Summary ---
Author Organization Formerly [facility], Later [facility] Address [facility] [place] [address] Care Team Providers Care Director Product Management Name Role Phone KyleBeena cline SHEREE Primary Care Provider [phone] Reason for Referral * Diagnostic Test (Routine) - Closed Specialty Diagnoses / Procedures Referred By Contac t Referred To Contact Radiology Diagnoses PAD (peripheral artery disease) Procedures NM Pharmacologic Stress Myocardial Perfusion Rashawn Dawn MD [facility] [place] [address] [place] [address] Referral ID Status Reason Start Date Expiration Date V isits Requested Visits Authorized [id number] Closed Specialty Service Requested 01/28/2019 01/28/2020 1 1 Reason for Visit * Diagnostic Test (Routine) - Closed Specialty Diagnoses / Procedures Referred By Contac t Referred To Contact Radiology Diagnoses PAD (peripheral artery disease) Procedures NM Pharmacologic Stress Myocardial Perfusion Rashawn Dawn MD [facility] [place] [address] [place] [address] Referral ID Status Reason Start Date Expiration Date V isits Requested Visits Authorized [id number] Closed Specialty Service Requested 01/28/2019 01/28/2020 1 1 Encounter Details Date Type Department Care Team (Latest Contact Info) Description 03/06/2019 7:07 AM EDT Hospital Encounter [place] [phone] Rashawn Dawn MD [facility] [place] [address] PAD (peripheral artery disease) Discharge Disposition: Home [...] contact the number below. Rashawn Dawn MD [facility] [place] ORDERABLES documented in [...] Arm documented in this encounter Care Teams Director Product Management Relationship Specialty Start Date End Date Beena Wilkes, CANDY DECORATOR [address] [place] [address] PCP - General Family Medicine 01/13/19 03/02/22 documented as of this encounter
--- OUTSIDE RECORDS SUMMARY | 2024-04-10 15:01 | XMS_ITS | Encounter Summary ---
Author Organization [facility] Address [facility] [place] [address] Care Team Providers Care Garment Sorter Name Role Phone Beena Wilkes APRN Primary Care Provider [phone] Encounter Details Date Type Department Care Team (Latest Contact Info) Description 01/28/2019 10:20 AM EDT [place] [address] PAD (peripheral artery disease) Social [...] (Bezet) 477 ms MUSE SYSTEM Calculated P Drybranch 64 degrees MUSE SYSTEM Calculated R Drybranch 60 degrees MUSE SYSTEM Calculated T Drybranch -39 degrees MUSE SYSTEM INTERPRETATION Normal sinus [...] unspecified documented in this encounter Care Teams Garment Sorter Relationship Specialty Start Date End Date Beena Wilkes, SHEREE [address] [place] [address] PCP - General Family Medicine 01/13/19 03/02/22 documented as of this encounter
--- OUTSIDE RECORDS SUMMARY | 2024-04-10 15:01 | XMS_ITS | Encounter Summary ---
Author Organization Formerly [facility] Address [facility] [place] [address] Care Team Providers Care Glove Cleaner Name Role Phone Jorge LuisSaundra hogan Sunil BENTLEY Primary Care Provider [phone] Reason for Visit * Auth/Cert Specialty Diagnoses / Procedures Referred By Beverley guardado Referred To Contact Diagnoses claudication Procedures PRO ENDOVASC REPAIR DEPLOYMENT [id number] ENDOGRAFT 1 Referral ID Status Reason Start Date Expiration Date Visits Re quested Visits Authorized [id number] 1 1 Encounter Details Date Type Department Care Team (Latest Contact Info) Description 03/05/2018 8:45 AM EDT - 03/05/2018 11:59 PM EDT Hospital Encounter Radiology Library at [facility] [place] [address] Discharge Disposition: Home Social History Tobacco Use [...] Vegas MD IMG FILM LIBRARY ORD ERABLES [place], [place] documented in this encounter Visit Diagnoses Not on filedocumented in this encounter Care Teams Glove Cleaner Relationship Specialty Start Date End Date Saundra Reddy APRN PCP - General Family Medicine 01/02/18 12/02/18 documented as of this encounter
--- OUTSIDE RECORDS SUMMARY | 2024-04-10 15:01 | XMS_ITS | Encounter Summary ---
Author Organization [facility] Address [place] [address] Care Team Providers Care Yarn Dry Room Worker Name Role Phone Beena Wilkes APRN Primary Care Provider [phone] Encounter Details Date Type Department Care Team (Late st Contact Info) Description 01/17/2019 3:00 PM EDT Office [place] [address] Judy Gilbert MD [facility] [place] [address] PVD (peripheral vascular disease) with claudication Social [...] claudication I73.9 ??? History of renal stent [id number] ??? Hypertension I10 ??? Aortoiliac occlusive disease [...] unspecified documented in this encounter Care Teams Yarn Dry Room Worker Relationship Specialty Start Date End Date Beena Wilkes, SHEREE [address] [place] [address] PCP - General Family Medicine 01/13/19 03/02/22 documented as of this encounter
--- OUTSIDE RECORDS SUMMARY | 2024-04-10 15:01 | XMS_ITS | Encounter Summary ---
Author Organization [facility] [place] [address] Care Team Providers Care Family Centered Specialist Name Role Phone KyleBeena cline SHEREE Primary Care Provider [phone] Reason for Referral * Diagnostic Test (Routine) - Closed Specialty Diagnoses / Procedures Referred By Contac t Referred To Contact Radiology Diagnoses PAD (peripheral artery disease) Procedures NM Pharmacologic Stress Myocardial Perfusion Rashawn Dawn MD [facility] [place] [address] [place] [address] Referral ID Status Reason Start Date Expiration Date V isits Requested Visits Authorized [id number] Closed Specialty Service Requested 01/28/2019 01/28/2020 1 1 * Diagnostic Test (Routine) - Closed Specialty Diagnoses / Procedures Referred By Contac t Referred To Contact Radiology Diagnoses PAD (peripheral artery disease) Procedures NM Pharmacologic Stress CT Component Rashawn Dawn MD [facility] [place] [address] [place] [address] Referral ID Status Reason Start Date Expiration Date V isits Requested Visits Authorized [id number] Closed Specialty Service Requested 01/28/2019 01/28/2020 1 1 Reason for Visit * Reason Comments Peripheral Arterial Disease Pre-op Exam Encounter Details Date Type Department Care Team (Latest Contact Info) Description 01/28/2019 9:30 AM EDT [facility] [place] [address] Rashawn Dawn MD [facility] [place] [address] PAD (peripheral artery disease); Hypertension, unspecified type; [...] from the original note were not included. [facility] [place] [address] CARDIOVASCULAR MEDICINE OUTPATIENT CONSULTATION Emiliana Suresh Farmer [id number] 01/28/2019 REFERRING PROVIDER: Beena Wilkes CHIEF COMPLAINT: [...] questions or concerns. Rashawn Dawn MD, MPH, [facility] Cardiovascular Transport [place] [address] documented in this encounter Plan of Treatment [...] contact the number below. Rashawn Dawn MD [facility] [place] ORDERABLES * Nuclear Pharmacologic Stress Cardiology [...] contact the number below. Rashawn Dawn MD [facility] [place] ORDERABLES documented in this encounter Visit Diagnoses Diagnosis PAD (peripheral artery disease) Peripheral vascular disease, unspecified Hypertension, unspecified type Renal artery stenosis Atherosclerosis of renal artery Pre-operative cardiovascular examination PAD (peripheral artery disease) Peripheral vascular disease, unspecified PAD (peripheral artery disease) Peripheral vascular disease, unspecified documented in this encounter Care Teams Family Centered Specialist Relationship Specialty Start Date End Date Beena Wilkes APRN [address] [place] [address] PCP - General Family Medicine 01/13/19 03/02/22 documented as of this encounter
--- OUTSIDE RECORDS SUMMARY | 2024-04-10 15:01 | XMS_ITS | Encounter Summary ---
Author Organization [facility] Address [facility] [place] [address] Care Team Providers Care Swage Toolsetter Name Role Phone ChungBeena SHEREE Primary Care Provider [phone] Reason for Visit * Diagnostic Test (Routine) - Closed Specialty Diagnoses / Procedures Referred By Contac t Referred To Contact Radiology Diagnoses PAD (peripheral artery disease) Procedures NM Pharmacologic Stress Myocardial Perfusion Rashawn Dawn MD [facility] [place] [address] [place] [address] Referral ID Status Reason Start Date Expiration Date V isits Requested Visits Authorized [id number] Closed Specialty Service Requested 01/28/2019 01/28/2020 1 1 Encounter Details Date Type Department Care Team (Latest Contact Info) Description 03/06/2019 7:08 AM EDT Hospital Encounter [place] [address] Rashawn Dawn MD [facility] [place] [address] Discharge Disposition: Home Social History [...] below. Rashawn Dawn MD IMG [place] ORDERABLES * [...] contact the number below. Rashawn Dawn MD [facility] [place] documented in this encounter Visit Diagnoses Not on filedocumented in this encounter Care Teams Swage Toolsetter Relationship Specialty Start Date End Date Beena Wilkes, SWITCHBOARD INSPECTOR [address] [place] [address] PCP - General Family Medicine 01/13/19 03/02/22 documented as of this encounter
--- OUTSIDE RECORDS SUMMARY | 2024-04-10 15:01 | XMS_ITS | Encounter Summary ---
Author Organization [place] [address] Care Team Providers Care Pantograph Ii Engraver Name Role Phone None Primary Care Provider Unavailabl e Encounter Details Date Type Department Care Team (Latest Contact Info) Description 12/03/2018 8:30 AM EDT Tech Visit [place] [address] Gallo Zazueta, RVT Iliac artery stenosis, bilateral; [...] Text Report Department: Vascular Surgery Lab Patient: [id number] (EMILIANA FARMER) CPT: 64595 ICD10: I70.0;I77.1 Referring Physician: RADHA EMERY, SHEREE [...] VASCUBASE 12/03/2018 8:28 AM EDT Radha Emery GLOBAL SAFETY OFFICER VASCULAR ORDERABLE S VASCUBASE documented in this encounter Visit Diagnoses Diagnosis Iliac artery stenosis, bilateral Stricture of artery 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
--- OUTSIDE RECORDS SUMMARY | 2024-04-10 15:01 | XMS_ITS | Encounter Summary ---
[place] [address] Care Team Providers Care Health Insurance Sales Agent Name Role Phone None Primary Care Provider Unavailabl e Encounter Details Date Type Department Care Team (Late st Contact Info) Description 12/04/2018 Orders [place] [address] Emmy Green, [facility] Social History Tobacco Use Types Packs/Day Years [...] on filedocumented in this encounter Care Teams Health Insurance Sales Agent Relationship Specialty Start Date End Date None None PCP - General 12/03/18 01/12/19 documented as of this encounter
--- OUTSIDE RECORDS SUMMARY | 2024-04-10 15:01 | XMS_ITS | Encounter Summary ---
Author Organization [facility] Address [facility] [place] [address] Care Team Providers Care Contract Agent Name Role Phone ChungBeena SHEREE Primary Care Provider Reason for Visit * Diagnostic Test (Routine) - Closed Specialty Diagnoses / Procedures Referred By Contac t Referred To Contact Radiology Diagnoses PAD (peripheral artery disease) Procedures NM Pharmacologic Stress Myocardial Perfusion Rashawn Dawn MD [facility] [place] [address] [place] [address] Referral ID Status Reason Start Date Expiration Date V isits Requested Visits Authorized [id number] Closed Specialty Service Requested 01/28/2019 01/28/2020 1 1 Encounter Details Date Type Department Care Team (Latest Contact Info) Description 03/06/2019 7:08 AM EDT Hospital Encounter [place] [address] Rashawn Dawn MD [facility] [address] Discharge Disposition: Home Social History [...] mCi documented in this encounter Care Teams Contract Agent Relationship Specialty Start Date End Date Beena Wilkes, LITIGATION COORDINATOR [address] [place] [address] PCP - General Family Medicine 01/13/19 03/02/22 documented as of this encounter
--- OUTSIDE RECORDS SUMMARY | 2024-04-10 15:01 | XMS_ITS | Encounter Summary ---
Author Organization [facility] [place] [address] Care Team Providers Care Rap Artist Name Role Phone Arlet Wilkesh SHEREE Primary Care Provider [phone] Reason for Referral * Diagnostic Test (Routine) - Closed Specialty Diagnoses / Procedures Referred By Contac t Referred To Contact Radiology Diagnoses PVD (peripheral vascular disease) with claudication Procedures CT Angiogram Aorta Lower Extremity Runoff Laura Quiros APRN [facility] [place] [address] [facility] [place] [address] Referral ID Status Reason Start Date Expiration Date V isits Requested Visits Authorized [id number] Closed Specialty Service Requested 12/03/2018 12/03/2019 1 1 Reason for Visit * Diagnostic Test (Routine) - Closed Specialty Diagnoses / Procedures Referred By Contac t Referred To Contact Radiology Diagnoses PVD (peripheral vascular disease) with claudication Procedures CT Angiogram Aorta Lower Extremity Runoff Laura Quiros APRN [facility] [place] [address] [facility] [place] [address] Referral ID Status Reason Start Date Expiration Date V isits Requested Visits Authorized [id number] Closed Specialty Service Requested 12/03/2018 12/03/2019 1 1 Encounter Details Date Type Department Care Team (Late st Contact Info) Description 01/17/2019 12:51 PM EDT - 01/17/2019 11:59 PM EDT Hospital [place] [address] Laura Quiros APRN [facility] [place] [address] PVD (peripheral vascular disease) with claudication Discharge [...] below. ? Electronically signed by: Amarjit Zimmerman [facility] ([phone]), at 01/17/2019 4:21 PM Narrative 01/17/2019 4:21 [...] was performed following intravenous administration of contrast. Tnugqpsdqhri603.0 ml of OMNIPAQUE 350.00 mg/ml. MPRs were [...] number below. Electronically signed by: Amarjit Zimmerman [facility]([phone]), at 01/17/2019 4:21 PM Laura Quiros APRN [facility] ORDERABLES documented [...] mLs documented in this encounter Care Teams Rap Artist Relationship Specialty Start Date End Date Beena Wilkes APRN [address] [place] [address] PCP - General Family Medicine 01/13/19 03/02/22 documented as of this encounter
--- OUTSIDE RECORDS SUMMARY | 2024-04-10 15:01 | XMS_ITS | Encounter Summary ---
Author Organization [facility] Address [facility] [place] [address] Care Team Providers Care Middle School Science Teacher Name Role Phone Beena Wilkes APRN Primary Care Provider [phone] Encounter Details Date Type Department Care Team (Latest Contact Info) Description 03/06/2019 7:10 AM EDT - 03/06/2019 11:59 PM EDT Hospital Encounter Non-[place] [address] Rashawn Dawn MD [facility] [place] [address] PAD (peripheral artery disease) Discharge Disposition: Home [...] unspecified documented in this encounter Care Teams Middle School Science Teacher Relationship Specialty Start Date End Date Beena Wilkes, SHEREE [address] [place] [address] PCP - General Family Medicine 01/13/19 03/02/22 documented as of this encounter
--- OUTSIDE RECORDS SUMMARY | 2024-04-10 15:01 | XMS_ITS | Encounter Summary ---
[place] [address] Care Team Providers Care Skidder Lever Operator Name Role Phone Beena Wilkes APRN Primary Care Provider [phone] Encounter Details Date Type Department Care Team (Latest Contact Info) Description 01/17/2019 11:55 AM EDT Laboratory Appointment Lab [address] [place] [address] PVD (peripheral vascular disease) with [...] EDT) Creatinine 0.61(L) 0.70 - 1.20 mg/dL [facility] Est Glomerular Filtration Rate 104 >=60 mL/min/1.7 3 m?? [facility] Comment: The eGFR was calculated using the CKD-EPI equation. As with all creatinine based estimates of kidney function, eGFR values calculated with the CKD-EPI equation are not accurate in patients with acute kidney failure, extremes of body mass or the acutely ill. [email or web address]/[email or web address] eGFR 120 >=60 mL/min/1.7 3 m?? [facility] Comment: The eGFR was calculated using the CKD-EPI equation. As with all creatinine based estimates of kidney function, eGFR values calculated with the CKD-EPI equation are not accurate in patients with acute kidney failure, extremes of body mass or the acutely ill. [email or web address]/[email or web address] Blood specimen (specimen) 01/17/2019 11:45 AM EDT 01/17/2019 11:50 AM EDT Narrative Resulting Agency Comment Spec In Lab Laura Quiros APRN CHEMISTRY ORDERABL ES [facility] [place] [id number] documented in this encounter Visit Diagnoses Diagnosis PVD (peripheral vascular disease) with claudication Peripheral vascular disease, unspecified documented in this encounter Care Teams Skidder Lever Operator Relationship Specialty Start Date End Date Beena Wilkes APRN [address] [place] [address] PCP - General Family Medicine 01/13/19 03/02/22 documented as of this encounter
--- OUTSIDE RECORDS SUMMARY | 2024-04-10 15:01 | XMS_ITS | Encounter Summary ---
Author Organization [facility] [place] [address] Care Team Providers Care Health Care Marketing Manager Name Role Phone Beena Wilkes APRN Primary Care Provider [phone] Encounter Details Date Type Department Care Team (Latest Contact Info) Description 01/28/2019 10:20 AM EDT Laboratory [place] [address] PAD (peripheral artery disease) Social [...] 11:11 AM EDT) ABORH Type Recheck Completed [facility] Blood specimen (specimen) 01/28/2019 11:11 AM EDT 01/28/2019 11:33 AM EDT Narrative Resulting Agency Comment Spec In Lab Judy Gilbert MD BLOOD BANK LAB ORDERABLES Performing Organization Address City/[facility]/ZIP Co de Phone Number [facility] [place] [address] * Antibody screen (01/28/2019 11:11 AM EDT) [facility] Ab Screen Interp Negative [facility] Expires at [id number] on: 03/14/2019 [facility] Comment: Corrected from 03/10/19 0:00:00 EDT [Unknown] on 03/03/19 16:10:06 EDT by Imani Villa Blood specimen (specimen) 01/28/2019 11:11 AM EDT 01/28/2019 11:33 AM EDT Narrative Resulting Agency Comment Spec In Lab Judy Gilbert MD BLOOD BANK LAB ORDERABLES [facility] [place] [address] * ABO/Rh Typing (01/28/2019 11:11 AM EDT) ABORH Type A Pos [facility] Blood specimen (specimen) 01/28/2019 11:11 AM EDT 01/28/2019 11:33 AM EDT Narrative Resulting Agency Comment Spec In Lab Judy Gilbert MD BLOOD BANK LAB ORDERABLES Performing Organization Address City/[facility]/ZIP Co de Phone Number [facility] [place] [address] * (ABNORMAL) Hemogram (01/28/2019 11:11 AM EDT) White Blood Cell 6.6 4.0 - 9.5 x10(3)/mc L [facility] Red Blood Cell 4.16 4.00 - 5.21 x10(6)/mc L [facility] Hemoglobin 13.3 11.7 - 15.5 gm/dL [facility] Hematocrit 40.4 35.7 - 45.8 % [facility] Mean Cell Volume 97.1(H) 82.6 - 94.4 [facility] Mean Cell Hemoglobin 32.0 27.1 - 32.0 pg [facility] Mean Cell Hemoglobin Concentration 32.9 31.7 - 35.0 gm/dL [facility] Platelet 287 145 - 357 x10(3)/ L [facility] RDW Standard Deviation 44.3 37.0 - 46.0 [facility] RDW coefficient of variation 12.3 11.5 - 14.1 % [facility] Mean Platelet Volume 10.0 7.6 - 12.9 [facility] NRBC% auto 0.0 % [facility] NRBC Absolute 0.000 0.000 - 0.000 x10(3)/ L [facility] Blood specimen (specimen) 01/28/2019 11:11 AM EDT 01/28/2019 11:40 AM EDT Narrative Resulting Agency Comment Spec In Lab Judy Gilbert MD HEMATOLOGY ORDE RABLES Performing Organization Address City/[facility]/ZIP Co de Phone Number [facility] [place] [address] * (ABNORMAL) Basic Metabolic Panel (non-fasting) (01/28/2019 11:11 AM EDT) Glucose 120 65 - 199 mg/dL [facility] Comment:Diabetes: >=200 mg/d L plus symptoms Blood Urea Nitrogen 12 8 - 18 mg/dL [facility] Creatinine 0.53(L) 0.70 - 1.20 mg/dL [facility] Sodium 139 135 - 145 mmol/L [facility] Potassium 4.4 3.5 - 5.0 mmol/L [facility] Comment: Please note: ??Patients with WBC >100,000 may have falsely elevated Potassium levels. ??For accurate Potassium quantification in these patients send serum separator tube (gold top) for subsequent determinations. ??Contact the Clinical Chemistry Laboratory if there are any questions. Chloride 101 98 - 107 mmol/L [facility] Carbon Dioxide 27 22 - 31 mmol/L [facility] Anion Gap 11 5 - 15 mmol/L [facility] Calcium 9.2 8.5 - 10.5 mg/dL [facility] Est Glomerular Filtration Rate 108 >=60 mL/min/1. 73 m?? [facility] Comment: The eGFR was calculated using the CKD-EPI equation. As with all creatinine based estimates of kidney function, eGFR values calculated with the CKD-EPI equation are not accurate in patients with acute kidney failure, extremes of body mass or the acutely ill. [email or web address] eGFR 126 >=60 mL/min/1. 73 m?? [facility] Comment: The eGFR was calculated using the CKD-EPI equation. As with all creatinine based estimates of kidney function, eGFR values calculated with the CKD-EPI equation are not accurate in patients with acute kidney failure, extremes of body mass or the acutely ill. [email or web address] Blood specimen (specimen) 01/28/2019 11:11 AM EDT 01/28/2019 11:40 AM EDT Narrative Resulting Agency Comment Spec In Lab Judy Gilbert MD CHEMISTRY ORDER ZAINA Performing Organization Address City/[facility]/ZIP Co de Phone Number [facility] [place] [address] * Prealbumin (01/28/2019 11:11 AM EDT) Prealbumin 33 20 - 40 mg/dL [facility] Comment: Prealbumin levels are generally lower in the pediatric population; adult concentrations are usually attained near puberty. Blood specimen (specimen) 01/28/2019 11:11 AM EDT 01/28/2019 11:40 AM EDT Narrative Resulting Agency Comment Spec In Lab Judy Gilbert MD CHEMISTRY ORDER ZAINA Performing Organization Address [facility] Co de Phone Number [facility] [place] [address] documented in this encounter Visit Diagnoses Diagnosis PAD (peripheral artery disease) Peripheral vascular disease, unspecified documented in this encounter Care Teams Health Care Marketing Manager Relationship Specialty Start Date End Date Beena Wilkes APRN [address] [place] [place] [address] PCP - General Family Medicine 01/13/19 03/02/22 documented as of this encounter
--- OUTSIDE RECORDS SUMMARY | 2024-04-10 15:01 | XMS_ITS | Encounter Summary ---
Author Organization [facility] [place] [address] Care Team Providers Care Licensing Representative Name Role Phone Jorge Luisedison Saundra Edison BENTLEY Primary Care Provider [phone] Encounter Details Date Type Department Care Team (Latest Contact Info) Description 04/15/2018 11:11 AM EST - 04/15/2018 11:59 PM EST Hospital Encounter [place] [address] Vikash Black [place] Intermittent claudication; Aortoiliac occlusive [...] Text Report Department: Vascular Surgery Lab Patient: [id number] (EMILIANA FARMER) CPT: 69527 ICD10: I73.9;I74.09 Referring Physician: ANGEL VEGAS ?? [...] aorta documented in this encounter Care Teams Licensing Representative Relationship Specialty Start Date End Date Saundra Reddy, SHEREE PCP - General Family Medicine 01/02/18 12/02/18 documented as of this encounter
--- OUTSIDE RECORDS SUMMARY | 2024-04-10 15:01 | XMS_ITS | Encounter Summary ---
Author Organization [facility] [place] [address] Care Team Providers Care Semiautomatic Stitcher Operator Name Role Phone Saundra Reddy SHEREE Primary Care Provider [phone] Reason for Visit * Auth/Cert Specialty Diagnoses / Procedures Referred By Beverley t Referred To Contact Diagnoses claudication Procedures PRO ENDOVASC REPAIR DEPLOYMENT [id number] ENDOGRAFT 1 Referral ID Status Reason Start Date Expiration Date Visits Re quested Visits Authorized [id number] 1 1 Encounter Details Date Type Department Care Team (Latest Contact Info) Description 03/05/2018 5:26 AM EDT - 03/06/2018 3:08 PM EDT Hospital [place] [address] Angel Mccullough MD [facility] [place] [address] Intermittent claudication; History of renal stent; Aortoiliac [...] hypertension, right renal artery stenosis sp angioplasty [id number], and short distance bilateral buttocks and thigh [...] in 170s systolic. 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 General Instructions None Future Appointments and Orders Future Appointments and Orders Future Appointments Provider Department Dept Phone 04/15/2018 12:30 PM Azucena Evans [place] Vascular Lab at [place] Arrive at: Decorative Engraver Apprentice Area 3V [phone] 04/15/2018 1:00 PM Radha Emery APRN Vascular Surgery at [place] Arrive at: Decorative Engraver Apprentice Area 3V [phone] Future Orders Complete By Expires SHA, legs, multiple levels [VAS8 Custom] 04/06/2018 (Approximate) 03/06/2019 Process Instructions: There is no in-house vascular candlemaking laborer available on weeknights (5pm-8am), weekends, or holidays. IF THIS IS A REQUEST FOR AN EMERGENT STUDY DURING THOSE HOURS, please have the senior provider responsible for the patient page the Vascular Surgery Fellow/Senior Resident money room teller to discuss options. Scheduling Instructions: Questions: Indication for study/signs & symptoms: s/p aortic and iliac stent graft placement Question to be answered: bloodflow to feet Which DH location will this be performed?: [place] Discharge References/Attachments: Discharge References/Attachments None Electronically Signed [...] For any problems or questions please call [phone] TOR Broussard, vice president of news Nurse Clinician For issues on weeknights after 5pm and weekends please call [phone] and ask for the Vascular Fellow money room teller. documented in this encounter Medications at Time [...] stent and bilat common iliac stents, left DISTRICT SUPERVISOR cutdown Int Pt seen on pm rounds [...] MD/GLENNY, PGY-5 Section of Vascular Surgery, Pager [phone] Associated attestation - Angel Mccullough MD - [...] hypertension, right renal artery stenosis sp angioplasty [id number], and short distance bilateral buttocks and thigh [...] in 170s systolic. 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 Successful angioplasty of right renal artery stenosis, probably atherosclerotic in origin. 2. Fibromuscular dysplasia, posterior division left renal artery. Functional Status/Social Hx: Lives w Works at [employer] Smoked 1ppd, quit dec 2017 Drinks 6 [...] Waveform Brachial Artery 170 Common Femoral Artery Niagara-Biphasic Popliteal Artery Monophasic Dorsalis Pedis (Ankle) Artery [...] MD/GLENNY, PGY-5 Section of Vascular Surgery, Pager [phone] Associated attestation - Angel Mccullough MD - [...] Figueroa MD - 03/05/2018 12:00 PM EDT [facility] [place] ?? Patient Name: Walker Farmer : [id number] MR#: [id number] ?? Case Date: 03/05/2018 ?? Surgeon: Surgeon(s) and Role: * Angel Mccullough MD - Primary * Judy Figueroa MD - Resident-Raw Juice Weigher ?? 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 Procedures: Bard Lifestyle 14 x 40 stent in distal-most abdominal aorta ([id number]) 7 x 59 iCast stent graft in right common iliac artery (77384) 7 x 59 iCast stent graft in left common iliac artery (52318) Anesthesia: General ?? Findings: Failure of percutaneous [...] Implant Name Type Inv. Item Serial No. Power Mule Operator Lot No. LRB No. Used Action STENT,LSTAR,VASC,[id number],80CM ([id number]) - [id number] IMPLANTS STENT,LSTAR,VASC,[id number],80CM ([id number]) ?? [employer]ARD [employer] - CR BARD [id number] N/A 1 Implanted STENT,ICAST,CVR,8X59MM,80CM ([id number]) - [id number] IMPLANTS STENT,ICAST,CVR,8X59MM,80CM ([id number]) [id number] [employer] GET[employer]E GR ?? N/A 1 Wasted STENT,ICAST,CVR,7X59MM,120CM ([id number]) - [id number] IMPLANTS STENT,ICAST,CVR,7X59MM,120CM [id number] [employer] GR ?? Left 1 Implanted STENT,ICAST,CVR,7X59MM,120CM ([id number]) - [id number] IMPLANTS STENT,ICAST,CVR,7X59MM,120CM ([id number] [employer] GR ?? Right 1 Implanted ? PRBCs: none (See Anesthesia Record/Report for Other Blood Products) Urine Output: 600 mL ?? Drains: None ?? Disposition: PACU ?? Condition: Stable HPI: 53F former smoker (quit Dec, 2017) with hypertension, right renal artery stenosis sp angioplasty [id number], and short distance bilateral buttocks and thigh [...] in 170s systolic. 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 Heparin was given. Using a stiff Glidewire and NTA catheter we were able to cross the lesions in the iliac and infrarenal aorta and advanced the stiff Glidewire into the descending thoracic part of the aorta. We attempted to proceed the same procedure on the left side. An 18 Uzbek needle was used to access the left common femoral artery. However despite multiple attempts at access (with 4 attempts at puncturing the artery), due to the small caliber of the vessel we were unable to successfully advance a False Pass wire. Therefore at that point we elected [...] artery proximal and distal. With an 18 Uzbek needle we are able to access the [...] wires through an NTA catheter. The 5 Uzbek sheaths were exchanged for 25 cm 7 Uzbek long sheaths. On the left side a [...] placing the common iliac stents. The 7 Uzbek sheaths were advanced into the infrarenal aorta. [...] angiogram was repeated in 30 degrees of CHINESE and 30 degrees of MESSINA to confirm [...] Operative Note Patient Name: Walker Farmer : [id number] MR#: [id number] Case Date: 03/05/2018 Surgeon: Surgeon(s) and Role: * Angel Mccullough MD - Primary * Judy Figueroa MD - Resident-Raw Juice Weigher Preoperative diagnosis: Nearly occlusive abdominal aortic and common iliac plaque causing bilateralintermittent claudication Postoperative diagnosis: Nearly occlusive abdominal aortic and common iliac plaque causing bilateral intermittent claudication Procedures: Bard Lifestyle 14 x 40 stent in distal-most abdominal aorta (93544) 7 x 59 iCast stent graft in right common iliac artery (82358) 7 x 59 iCast stent graft in left common iliac artery (76606) Anesthesia: General Findings: Failure of percutaneous access [...] Implant Name Type Inv. Item Serial No. Power Mule Operator Lot No. LRB No. Used Action STENT,LSTAR,VASC,[id number],80CM ([id number]) - [id number] IMPLANTS STENT,LSTAR,VASC,[id number],80CM ([id number]) [employer] - [employer] BARD [id number] N/A 1 Implanted STENT,ICAST,CVR,8X59MM,80CM ([id number]) - [id number] IMPLANTS STENT,ICAST,CVR,8X59MM,80CM ([id number]) [id number] [employer] N/A 1 Wasted STENT,ICAST,CVR,7X59MM,120CM ([id number]) - [id number] IMPLANTS STENT,ICAST,CVR,7X59MM,120CM ([id number] [employer] Left 1 Implanted STENT,ICAST,CVR,7X59MM,120CM ([id number]) - [id number] IMPLANTS STENT,ICAST,CVR,7X59MM,120CM ([id number] [employer] Right 1 [...] METABOLIC PANEL Routine 03/05/2018 6:42 AM EDT UTILITY AIDE SCAN 03/05/2018 12:00 AM EDT IMPLANTABLE DEVICES SCAN 03/05/2017 12:00 AM EDT documented in this encounter Results * SHA, legs, multiple levels (04/15/2018 12:17 PM EST) VB Text Report Department: Vascular Surgery Lab Patient: [id number] (WALKER FARMER) CPT: 71850 ICD10: I73.9;I74.09 Referring Physician: ANGEL MCCULLOUGH ?? [...] Text Report Department: Vascular Surgery Lab Patient: [id number] (WALKER FARMER) CPT: 42715 ICD10: I74.09;I73.9 Referring Physician: ANGEL MCCULLOUGH ?? [...] AM EDT) Neutrophil % Manual 81 % [facility] Lymphocyte Manual 17 % [facility] Monocyte Manual 2 % [facility] Neutrophil Absolute (ANC) - Manual 11.9(H) 1.5 - 6.3 x10(3)/[facility] LABORATORY Neutrophil Absolute (ANC) - Automated 11.91(H) 1.70 - 6.10 x10(3)/[facility] LABORATORY Lymph Absolute Manual 2.5 1.0 - 3.6 x10(3)/[facility] LABORATORY Monocyte Absolute Manual 0.3 0.2 - 1.0 x10(3)/[facility] LABORATORY Total Cells Ct 100 [facility] Plat estimate Normal [facility] RBC Morphology Normal [facility] Hyperseg Neutro Present [facility] Blood specimen (specimen) 03/06/2018 4:40 AM EDT 03/06/2018 4:46 AM EDT Narrative Resulting Agency Comment Spec In Lab Judy Figueroa MD HEMATOLOGY ORDERABLE S Performing Organization Address City/[facility]/ZIP Co de Phone Number [facility] [place] [address] * (ABNORMAL) Hemogram (03/06/2018 4:40 AM EDT) White Blood Cell 14.7(H) 4.0 - 9.5 x10(3)/ L [facility] Red Blood Cell 3.43(L) 4.00 - 5.21 x10(6)/mc L [facility] Hemoglobin 11.1(L) 11.7 - 15.5 gm/dL [facility] Hematocrit 32.4(L) 35.7 - 45.8 % [facility] Mean Cell Volume 94.5(H) 82.6 - 94.4 [facility] LABORATORY Mean Cell Hemoglobin 32.4(H) 27.1 - 32.0 pg [facility] Mean Cell Hemoglobin Concentration 34.3 31.7 - 35.0 gm/dL [facility] Platelet 236 145 - 357 x10(3)/[facility] LABORATORY RDW Standard Deviation 44.4 37.0 - 46.0 [facility] LABORATORY RDW coefficient of variation 13.0 11.5 - 14.1 % [facility] Mean Platelet Volume 9.7 7.6 - 12.9 [facility] LABORATORY NRBC% auto 0.0 % [facility] NRBC Absolute 0.000 0.000 - 0.000 x10(3)/[facility] LABORATORY Blood specimen (specimen) 03/06/2018 4:40 AM EDT 03/06/2018 4:46 AM EDT Narrative Resulting Agency Comment Spec In Lab Judy Figueroa MD HEMATOLOGY ORDERABLE S Performing Organization Address City/[facility]/ZIP Co de Phone Number [facility] [place] [address] * (ABNORMAL) Basic Metabolic Panel (non-fasting) (03/06/2018 4:40 AM EDT) Glucose 126 65 - 199 mg/dL [facility] Comment:Diabetes: >=200 mg/d L plus symptoms Blood Urea Nitrogen 8 8 - 18 mg/dL [facility] [...] 98 - 107 mmol/L [facility] Carbon Dioxide 25 22 - 31 mmol/L [facility] Anion Gap 8 5 - 15 mmol/L [facility] Calcium 8.5 8.5 - 10.5 mg/dL [facility] Est Glomerular Filtration Rate 109 >=60 mL/min/1. 73 m?? [facility] Comment: The eGFR was calculated using the CKD-EPI equation. As with all creatinine based estimates of kidney function, eGFR values calculated with the CKD-EPI equation are not accurate in patients with acute kidney failure, extremes of body mass or the acutely ill. http://[employer]/[facility] [place] eGFR 127 >=60 mL/min/1. 73 m?? [facility] Comment: The eGFR was calculated using the CKD-EPI equation. As with all creatinine based estimates of kidney function, eGFR values calculated with the CKD-EPI equation are not accurate in patients with acute kidney failure, extremes of body mass or the acutely ill. http://[employer]/[facility] Blood specimen (specimen) 03/06/2018 4:40 AM EDT 03/06/2018 4:46 AM EDT Narrative Resulting Agency Comment Spec In Lab nAgel Mccullough MD CHEMISTRY ORDERABLES Performing Organization Address [facility]/ZIP Co de Phone Number [facility] [place] [address] * IR OR VASC Aniogram Image Storage Only (03/05/2018 8:45 AM EDT) Narrative [facility] - 03/05/2018 8:45 AM EDT This exam is for storage only and is auto-finalizing. Angel Mccullough MD IMG FILM LIBRARY ORD ERABLES Performing Organization Address [facility] Co de Phone Number [place], [place] * (ABNORMAL) BLOOD GAS 2 ARTERIAL (03/05/2018 8:43 AM EDT) pH, Arterial 7.49(H) 7.35 - 7.45 [facility] PCO2, Arterial 32(L) 35 - 45 mmHg [facility] PO2, Arterial 276(H) 85 - 104 mmHg [facility] Bicarbonate, Arterial 24.0 20.0 - 26.0 mmol/L [facility] Base Excess, Arterial 0.6 -3.0 - 3.0 mmol/L [facility] Hgb Blood Gas 12.7 11.7 - 15.5 gm/dL [facility] Oxyhemoglobin, Arterial 98.2(H) 94.0 - 97.0 % [facility] Carboxyhemoglob in, Arterial 0.8 % [facility] Comment: Nonsmokers: 0.5-1.5% COHB Smokers: Variable, but usually less than 10% Toxic: 20-30% COHB Lethal: Greater than 60% COHB Methemoglobin, Arterial 0.3 <=1.5 % [facility] Na Whole Blood 138 135 [...] CARE TEST O RDERABLES Performing Organization Address [facility] Co de Phone Number [facility] [address] * EKG 12 Lead (03/05/2018 7:04 AM EDT) Ventricular rate 72 BPM MUSE SYSTEM Atrial Rate 72 BPM MUSE SYSTEM P-R Interval 170 ms MUSE SYSTEM QRS Duration 116 ms MUSE SYSTEM Q-T Interval 452 ms MUSE SYSTEM QTC Calculated (Bezet) 494 ms MUSE SYSTEM Calculated P [place] 59 degrees MUSE SYSTEM Calculated R [place] 31 degrees MUSE SYSTEM Calculated T [place] 34 degrees MUSE SYSTEM INTERPRETATION Normal sinus rhythm Left bundle branch block Abnormal ECG No previous ECGs available Confirmed by MD CALDERON JOHN ([id number]) on 03/05/2018 8:32:44 AM MUSE SYSTEM 03/05/2018 7:04 AM EDT 03/05/2018 8:32 AM EDT Angel Mccullough MD ECG ORDERABLES Performing Organization Address [facility] Co de Phone Number MUSE SYSTEM * ABORH Recheck Status (03/05/2018 6:42 AM EDT) ABORH Recheck Order Order Placed [facility] ABORH Type Recheck Complete [facility] Blood specimen (specimen) 03/05/2018 6:42 AM EDT 03/05/2018 6:46 AM EDT Narrative Resulting Agency Comment Spec In Lab Laura Romo MD BLOOD BANK L AB ORDERABLES Performing Organization Address City/[facility]/ZIP Co de Phone Number [facility] [place] [address] * Antibody screen (03/05/2018 6:42 AM EDT) Ab Screen Interp Negative [facility] Expires at [id number] on: 03/08/2018 [facility] Blood specimen (specimen) 03/05/2018 6:42 AM EDT 03/05/2018 6:46 AM EDT Narrative Resulting Agency Comment Spec In Lab Laura Romo MD BLOOD BANK L AB ORDERABLES Performing Organization Address City/[facility]/ZIP Co de Phone Number [facility] [place] [address] * ABO/Rh Typing (03/05/2018 6:42 AM EDT) ABORH Type A Pos [facility] Blood specimen (specimen) 03/05/2018 6:42 AM EDT 03/05/2018 6:46 AM EDT Narrative Resulting Agency Comment Spec In Lab Laura Romo MD BLOOD BANK L AB ORDERABLES Performing Organization Address City/[facility]/ZIP Co de Phone Number [facility] [place] [address] * (ABNORMAL) Differential, Automated (03/05/2018 6:42 AM EDT) Neutrophil % 70.6 % [facility] Neutrophil Absolute 8.01(H) 1.70 - 6.10 x10(3)/mc L [facility] Lymph % 22.8 % [facility] Lymphocytes Abs 2.6 0.9 - 3.2 x10(3)/ L [facility] Monocyte % 4.3 % [facility] Monocyte Abs 0.5 0.3 - 0.9 x10(3)/ L [facility] Eos % 1.6 % [facility] Eosinophils Abs 0.2 0.0 - 0.4 x10(3)/[facility] LABORATORY Basophil % 0.4 % [facility] Baso Absolute 0.0 0.0 - 0.1 x10(3)/[facility] LABORATORY Immature Gran % 0.30 % [facility] Comment: Immature granulocytes(IG's)percentage and absolute count will include metamyelocytes, myelocytes, and promyelocytes. Blood smears from CBCs yielding IG's will be scanned manually for concordance. If this scan disagrees with the automated IG or if promyelocytes are noted, a manual differential will be performed. Immature Gran Absolute 0.03 0.00 - 0.04 x10(3)/[facility] LABORATORY Blood specimen (specimen) 03/05/2018 6:42 AM EDT 03/05/2018 6:58 AM EDT Narrative Resulting Agency Comment Spec In Lab Laura Romo MD HEMATOLOGY O RDERABLES [facility] [place] [address] * (ABNORMAL) Hemogram (03/05/2018 6:42 AM EDT) White Blood Cell 11.3(H) 4.0 - 9.5 x10(3)/[facility] LABORATORY Red Blood Cell 4.01 4.00 - 5.21 x10(6)/[facility] LABORATORY Hemoglobin 12.8 11.7 - 15.5 gm/dL [facility] Hematocrit 38.3 35.7 - 45.8 % [facility] Mean Cell Volume 95.5(H) 82.6 - 94.4 fL [facility] Mean Cell Hemoglobin 31.9 27.1 - 32.0 pg [facility] Mean Cell Hemoglobin Concentration 33.4 31.7 - 35.0 gm/dL [facility] Platelet 285 145 - 357 x10(3)/mc L [facility] RDW Standard Deviation 45.1 37.0 - 46.0 fL [facility] RDW coefficient of variation 12.8 11.5 - 14.1 % [facility] Mean Platelet Volume 9.8 7.6 - 12.9 fL [facility] NRBC% auto 0.0 % [facility] NRBC Absolute 0.000 0.000 - 0.000 x10(3)/mc L [facility] Blood specimen (specimen) 03/05/2018 6:42 AM EDT 03/05/2018 6:58 AM EDT Narrative Resulting Agency Comment Spec In Lab Laura Romo MD HEMATOLOGY O RDERABLES [facility] [place] [address] * (ABNORMAL) Basic Metabolic Panel (non-fasting) (03/05/2018 6:42 AM EDT) Glucose 128 65 - 199 mg/dL [facility] Comment:Diabetes: >=200 mg/d L plus symptoms Blood Urea Nitrogen 13 8 - 18 mg/dL [facility] [...] 98 - 107 mmol/L [facility] Carbon Dioxide 27 22 - 31 mmol/L [facility] Anion Gap 12 5 - 15 mmol/L [facility] Calcium 9.1 8.5 - 10.5 mg/dL [facility] Est Glomerular Filtration Rate 105 >=60 mL/min/1. 73 m?? [facility] Comment: The eGFR was calculated using the CKD-EPI equation. As with all creatinine based estimates of kidney function, eGFR values calculated with the CKD-EPI equation are not accurate in patients with acute kidney failure, extremes of body mass or the acutely ill. http://[employer]/[facility] eGFR 121 >=60 mL/min/1. 73 m?? [facility] Comment: The eGFR was calculated using the CKD-EPI equation. As with all creatinine based estimates of kidney function, eGFR values calculated with the CKD-EPI equation are not accurate in patients with acute kidney failure, extremes of body mass or the acutely ill. http://[employer]/[facility] Blood specimen (specimen) 03/05/2018 6:42 AM EDT 03/05/2018 6:58 AM EDT Narrative Resulting Agency Comment Spec In Lab Angel Mccullough MD CHEMISTRY ORDERABLES Performing Organization Address City/State/[facility] Co de Phone Number [facility] [place] [address] * SCAN DOC: UTILITY AIDE (03/05/2018 12:00 AM EDT) Anatomical Region Laterality [...] Cano CRNA)2300 (Stopped - Provider: Zoran Mcclendon, SADAF) sodium chloride 0.9% infusion () 100 mL/hr, Intravenous, CONTINUOUS, Starting on Sun03/05/18 at 1230, Until Sun03/05/18 at 2229 1241 (New Bag - Provider: Me belkis Hyatt RN)2059 (New Bag - Provider: Zoran Mcclendon RN) [...] Pain, Routine 1234 (Given - Provider: Viridiana yHatt, SADAF)1937 (Given - Provider: Viridiana Hyatt RN) 0126 [...] patch documented in this encounter Care Teams Semiautomatic Stitcher Operator Relationship Specialty Start Date End Date Saundra Reddy APRN PCP - General Family Medicine 01/02/18 12/02/18 documented as of this encounter
--- OUTSIDE RECORDS SUMMARY | 2024-04-10 15:01 | XMS_ITS | Encounter Summary ---
Author Organization [facility]ly [facility] Address [facility] [place] [address] Care Team Providers Care Manager Environmental Affairs Name Role Phone Beena Wilkes APRN Primary Care Provider [phone] Reason for Visit * Auth/Cert Specialty Diagnoses / Procedures Referred By Contac t Referred To Contact Diagnoses PAD (peripheral artery disease) PAD n/a Procedures PRO BYPASS GRAFT OTHR, AORTOBIFEMORAL @BYPASS GRAFT, AORTOBIFEMORAL W\ SYNTHETIC CONDUIT (WRVU 32.98) Referral ID Status Reason Start Date Expiration Date Visits Re quested Visits Authorized [id number] 1 1 Encounter Details Date Type Department Care Team (Late st Contact Info) Description 03/31/2019 12:11 PM EST Anesthesia [place] [address] Gris Loco MD [facility] [place] [address] Angel Betts MD [facility] [place] [address] Anesthesia Record Procedure Summary Procedure Name Responsible [...] by Vangie Rodrigez RN 04/05/19 0721 by Maceknzie White RN Incision 03/05/18; 0902; groi n; LDA not present upon assessment; 04/05/19; 0721 03/05/18 0902 by Vangie Rodrigez RN 04/05/19 0721 by Mackenzie White RN (RETIRED) Peripheral IV Line - Single Lumen 03/06/19; 0735; median cubital vein (antecubital fossa), right; ouss-ehk-eudpfs catheter system; 22 gauge; site symptomatic; 04/04/19; 194403/06/19 0735 by Vikash Casper 04/04/191944 by Roxie Barroso RN (RETIRED) Peripheral IV Line - Single Lumen 03/31/19; 1121; basilic vein (medial side of arm), left; srxe-ktn-utgell catheter system; 20 gauge; Samia Kay RN; [...] cephalic vein (lateral side of arm), left; zehp-vxw-iwwduu catheter system; 18 gauge, HINA; measom; 0; 03/31/19; 202903/31/19 1257 by Rosita Ayala MD 03/31/192029 by Rachel Lauren RN (RETIRED) Peripheral IV Line - Single Lumen 03/31/19; 1257; median vein (underside of arm), right; zhgk-fvn-dcnegm catheter system; 14 gauge; measom; 0; no [...] Procedure Summary Date: 03/31/19 Room / Location: [address] MAIN OR Anesthesia Start: 1210 Anesthesia Stop: 1821 Procedure: @BYPASS GRAFT, AORTOBIFEMORAL W\ SYNTHETIC CONDUIT (WRVU 32.98) (N/A ) Diagnosis: (PAD) Surgeon: Judy Gilbert MD Responsible Provider: Gris Loco MD Anesthesia Type: general ASA Status: 3 All Anesthesia Providers: Anesthesiologist: Gris Loco MD Dermatologist Managing Partner: Rosita Ayala MD Vitals Value Taken Time [...] Location: Operating Room (OR 19) Baseline Information (WJI-wkxe-pvyitxbv entry for database use): Best phone number to contact patient: [phone] Addiction History: No Chronic Pain: No On [...] T8-T9 - bilateral epidural dye spread noted. Resident/EMPLOYMENT EDUCATIONAL COORD: Di Avalos MD Second Resident/EMPLOYMENT EDUCATIONAL COORD: Fellow: Attending Physician: Kizzy Pompa MD ~~~~~~~~~~~~~~~~~~~~~~~~~~~~~~~~~~~~~~~~~~~~~~~~~~~~~~~~~~~~ [...] 9) performed by Yves Vegas MD at [facility] MAIN OR ? ? PRO REVSC OPEN/PERCUTANEOUS ILIAC ART W STNT & ANGIOP IPSI VSL Bilateral 03/05/2018 REVSC OPN\PRQ ILIAC ART W\STNT & ANGIOP EA IPSILATERAL VSL-ALEX (WRVU 4.25) performed by Yves Vegas MD at [facility] MAIN OR ? ? PRO REVSC OPEN/PERCUTANEOUS ILIAC ART W STNT PLMT&ANGIO PRECIOUS VSL UNILAT Bilateral 03/05/2018 REVSC OPN\PRQ ILIAC ART W\STNT PLMT & ANGIOP SAME VSL BILAT (WRVU 10) performed by Yves Vegas MD at [facility] MAIN OR Social History Tobacco Use [...] line Rosita Ayala MD 03/28/2019 Staff addendum ([facility]): Patient seen and examined on DOS. As above, 45kg (BMI 18) current and custodial smoker with etoh abuse (5 beers daily, [...] mm, #1 attempt, EZ MV. Shameka Almanza, CORRESPONDENT Pre-Admission Testing [phone] documented in this encounter Plan of Treatment [...] Location: Operating Room (OR 19) Baseline Information (HWK-gyhm-kfppqado entry for database use): Best phone number to contact patient: ??[phone] Addiction History: ??No Chronic Pain: ??No On [...] - bilateral epidural dye spread noted. ?? Resident/EMPLOYMENT EDUCATIONAL COORD: ?Di Avalos MD Second Resident/EMPLOYMENT EDUCATIONAL COORD: Fellow: ? Attending Physician: ? Kizzy Pompa MD ~~~~~~~~~~~~~~~~~~~~~~~~~~~~~~~~~~~~~~~~~~~~~~~~~~~~~~~~~~~~ Gris Loco MD STAFF ANESTHESIOLOGIST [facility] documented in this encounter Visit Diagnoses [...] mg documented in this encounter Care Teams Manager Environmental Affairs Relationship Specialty Start Date End Date Beena Wilkes, CORRESPONDENT [address] [place] [address] PCP - General Family Medicine 01/13/19 03/02/22 documented as of this encounter
--- OUTSIDE RECORDS SUMMARY | 2024-04-10 15:02 | XMS_ITS | Encounter Summary ---
Author Organization [facility] [place] [address] Care Team Providers Care Die Maker Bench Stamping Name Role Phone Saundra Reddy APRN Primary Care Provider [phone] Encounter Details Date Type Department Care Team (Late st Contact Info) Description 01/22/2018 Orders Only [place] [address] Iris Farmer, RN Intermittent claudication Social History [...] unspecified documented in this encounter Care Teams Die Maker Bench Stamping Relationship Specialty Start Date End Date Saundra Reddy APRN PCP - General Family Medicine 01/02/18 12/02/18 documented as of this encounter
--- OUTSIDE RECORDS SUMMARY | 2024-04-10 15:02 | XMS_ITS | Encounter Summary ---
Author Organization [facility] [place] [address] Care Team Providers Care Compressed Gas Equipment Mechanic Name Role Phone Saundra Reddy APRN Primary Care Provider [phone] Encounter Details Date Type Department Care Team (Late st Contact Info) Description 01/09/2018 Orders [place] [address] Emmy Green, SLAG WORKER Intermittent claudication; History of renal stent Social [...] stent documented in this encounter Care Teams Compressed Gas Equipment Mechanic Relationship Specialty Start Date End Date Saundra Reddy APRN PCP - General Family Medicine 01/02/18 12/02/18 documented as of this encounter
--- OUTSIDE RECORDS SUMMARY | 2024-04-10 15:02 | XMS_ITS | Encounter Summary ---
Author Organization [facility] [place] [place] [address] Care Team Providers Care Classified Ad Clerk Name Role Phone Saundra Reddy APRN Primary Care Provider [phone] Encounter Details Date Type Department Care Team (Late st Contact Info) Description 02/06/2018 Orders [place] [address] Angela House RN Intermittent claudication Social History [...] Orde r Schedule EVG, AORTA/ILIAC ART RPR SRJIQ-LM-DXICZ ENDOGRAFT; ANEURX Procedures Routine One Time for [...] (Bezet) 494 ms MUSE SYSTEM Calculated P [place] 59 degrees MUSE SYSTEM Calculated R [place] 31 degrees MUSE SYSTEM Calculated T [place] 34 degrees MUSE SYSTEM INTERPRETATION Normal sinus rhythm Left bundle branch block Abnormal ECG No previous ECGs available Confirmed by MD CALDERON JOHN ([id number]) on 03/05/2018 8:32:44 AM MUSE SYSTEM 03/05/2018 7:04 AM EDT 03/05/2018 8:32 AM EDT vYes Vegas MD ECG ORDERABLES Ayla SYSTEM documented in this encounter Visit Diagnoses Diagnosis Intermittent claudication Peripheral vascular disease, unspecified documented in this encounter Care Teams Classified Ad Clerk Relationship Specialty Start Date End Date Saundra Reddy APRN PCP - General Family Medicine 01/02/18 12/02/18 documented as of this encounter
--- OUTSIDE RECORDS SUMMARY | 2024-04-10 15:02 | XMS_ITS | Encounter Summary ---
Author Organization Formerly [facility] Address [facility] [place] [address] Care Team Providers Care Piecer Up Name Role Phone Jorge LuisSaundra hogan Sunil BENTLEY Primary Care Provider [phone] Reason for Referral * Diagnostic Test (Routine) - Closed Specialty Diagnoses / Procedures Referred By Contac t Referred To Contact Radiology Diagnoses Atherosclerosis of [place] artery of both lower extremities with intermittent claudication Procedures CT Angiogram Aorta Lower Extremity Runoff Lesley Serrano PA [facility] [place] [address] [facility] [place] [address] Referral ID Status Reason Start Date Expiration Date V isits Requested Visits Authorized [id number] Closed Specialty Service Requested 01/07/2018 02/23/2018 1 1 Encounter Details Date Type Department Care Team (Late st Contact Info) Description 01/07/2018 Orders [place] [address] Lesley Serrano PA [facility] [place] [address] Atherosclerosis of [place] artery of both lower extremities with intermittent [...] of the remainder. 3. ??Patent bilateral three-vessel fowyn-dnn-fzcv runoff to the foot ?? 4. ??Remainder [...] of the remainder. 3. Patent bilateral three-vessel nsudx-kdv-acac runoff to the foot 4. Remainder of [...] EDT) Creatinine 0.56(L) 0.70 - 1.20 mg/dL [facility] Est Glomerular Filtration Rate 108 >=60 mL/min/1.7 3 m?? [facility] Comment: The eGFR was calculated using the CKD-EPI equation. As with all creatinine based estimates of kidney function, eGFR values calculated with the CKD-EPI equation are not accurate in patients with acute kidney failure, extremes of body mass or the acutely ill. [email or web address]://[email or web address]/[email or web address] eGFR 125 >=60 mL/min/1.7 3 m?? [facility] Comment: The eGFR was calculated using the CKD-EPI equation. As with all creatinine based estimates of kidney function, eGFR values calculated with the CKD-EPI equation are not accurate in patients with acute kidney failure, extremes of body mass or the acutely ill. [email or web address]://[email or web address]/[email or web address] Blood specimen (specimen) 01/08/2018 9:16 AM EDT 01/08/2018 9:25 AM EDT Narrative Resulting Agency Comment Spec In Lab Consuelo Toledo MD CHEMISTRY ORDERABLES [facility] [place] [address] documented in this encounter Visit Diagnoses Diagnosis Atherosclerosis of [place] artery of both lower extremities with intermittent claudication Atherosclerosis of [place] arteries of the extremities with intermittent claudication Atherosclerosis of [place] artery of both lower extremities with intermittent claudication Atherosclerosis of [place] arteries of the extremities with intermittent claudication documented in this encounter Care Teams Piecer Up Relationship Specialty Start Date End Date Saundra Reddy APRN PCP - General Family Medicine 01/02/18 12/02/18 documented as of this encounter
--- OUTSIDE RECORDS SUMMARY | 2024-04-10 15:02 | XMS_ITS | Encounter Summary ---
Author Organization [facility] [place] [address] Care Team Providers Care Or Assistant Name Role Phone Saundra Reddy APRN Primary Care Provider [phone] Reason for Visit * Auth/Cert Specialty Diagnoses / Procedures Referred By Beverley guardado Referred To Contact Diagnoses claudication Procedures PRO ENDOVASC REPAIR DEPLOYMENT [id number] ENDOGRAFT 1 Referral ID Status Reason Start Date Expiration Date Visits Re quested Visits Authorized [id number] 1 1 Encounter Details Date Type Department Care Team (Late st Contact Info) Description 03/05/2018 7:32 AM EDT Anesthesia Event [place] [address] Taqueria Gore MD [facility] [place] [address] Joe Cano CRNA [facility] [place] [address] Anesthesia Record Procedure Summary Procedure Name Responsible Anesthesiologist Anesthesia Start Time Anesthesia Stop Time TRANSCATH PLACEMENT INTRAVASCULAR STENT, OPN/PERQ, INITIAL ARTERY, S&I (WRVU 8.75) (Abdomen) Taqueria Gore MD 03/05/18 0732 03/05/18 1139 Events Date Time Event Comment 03/05/2018 0720 0732 AN Verify 0732 Start 0735 An Start Data 0746 An Induction 0746 An Intubation 0758 Anesthesia Ready 0845 Break/Relief In TAQUERIA Olsen MD 7624 ABG Data Arterial Blood Gas result: pH [...] 0725; metacarpal vein (top of hand), right; deed-cus-mamxjs catheter system; 20 gauge, 3/4 in length; [...] 1116 03/05/18 0746 by Joe Cano, SUPERVISOR METAL HANGING 03/05/18 1116 by Joe Cano CRNA Arterial Line 03/05/18; 0750; radi al artery, right; 20 gauge; tn; Sterile Prep, Sterile Gloves; no longer indicated, catheter intact, removed per policy; 03/05/18; 201403/05/18 0750 by Joe Cano, KIMBERLY 03/05/182014 by Viridiana Hyatt RN (RETIRED) Peripheral IV Line - Single Lumen 03/05/18; 0758; basilic vein (medial side of arm), right; vwkt-itj-miznal catheter system; 16 gauge; 03/06/18; 1404 03/05/18 0758 by Joe Cano, SUPERVISOR METAL HANGING 03/06/18 1404 by Shelli Morel RN Urethral [...] Gore MD - 03/05/2018 12:30 PM EDT [facility] Department of Anesthesiology Post-procedure Note Patient: Emiliana Farmer Procedure Summary Date: 03/05/18 Room / Location: [address] MAIN OR Anesthesia Start: 731 Anesthesia [...] Anesthesia Providers: Anesthesiologist: Taqueria Gore MD SUPERVISOR METAL HANGING: Joe Cano CRNA Patient Location: PACU/[facility] Level of Consciousness: Conscious but Sleepy Pain [...] y.o. female. Procedure(s): @EVG, AORTA/ILIAC ART RPR DFIRW-PD-PBPER ENDOGRAFT; ANEURX Patient Active Problem List Diagnosis [...] to blood products. Plan discussed with SUPERVISOR METAL HANGING. PAT Staff Note Attending NOTE Brief HPI: [...] mg documented in this encounter Care Teams Or Assistant Relationship Specialty Start Date End Date Saundra Reddy, SUPERVISOR OFFSET PLATE PREPARATION PCP - General Family Medicine 01/02/18 12/02/18 documented as of this encounter
--- OUTSIDE RECORDS SUMMARY | 2024-04-10 15:02 | XMS_ITS | Encounter Summary ---
Author Organization [facility]ending [facility] Address [facility] [place] [address] Care Team Providers Care Slat Basket Maker Helper Machine Name Role Phone Saundra Reddy APRN Primary Care Provider [phone] Reason for Visit * Consultation (Urgent) - Closed Specialty Diagnoses / Procedures Referred By Contwilberto t Referred To Contact Vascular Surgery Diagnoses leg pain renal artery stenosis Saundra Reddy APRN [address] [place] [address] [facility] Vascular Lab [address] [address] Referral ID Status Reason Start Date Expiration Date V isits Requested Visits Authorized [id number] Closed Consult, Test & Treat Connection Center 12/31/2017 12/31/2018 2 2 Encounter Details Date Type Department Care Team (Late st Contact Info) Description 01/08/2018 8:30 AM EDT Office Visit [place] [address] Lesley Serrano [place] [facility] [place] [address] Intermittent claudication; Atherosclerosis of [place] artery of both lower extremities with intermittent [...] or tissue loss. 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 Common Femoral Artery ?[place]- Biphasic ?? Popliteal Artery ? Monophasic ? [...] Routine 01/08/2018 9:16 AM EDT Atherosclerosis of [place] artery of both lower extremities with intermittent claudication documented in this encounter Results * (ABNORMAL) Creatinine (01/08/2018 9:16 AM EDT) Creatinine 0.56(L) 0.70 - 1.20 mg/dL [facility] Est Glomerular Filtration Rate 108 >=60 mL/min/1.7 3 m?? [facility] Comment: The eGFR was calculated using the CKD-EPI equation. As with all creatinine based estimates of kidney function, eGFR values calculated with the CKD-EPI equation are not accurate in patients with acute kidney failure, extremes of body mass or the acutely ill. [email or web address]://Juxinli/[facility] eGFR 125 >=60 mL/min/1.7 3 m?? [facility] Comment: The eGFR was calculated using the CKD-EPI equation. As with all creatinine based estimates of kidney function, eGFR values calculated with the CKD-EPI equation are not accurate in patients with acute kidney failure, extremes of body mass or the acutely ill. [email or web address] Blood specimen (specimen) 01/08/2018 9:16 AM EDT 01/08/2018 9:25 AM EDT Narrative Resulting Agency Comment Spec In Lab Consuelo Toledo MD CHEMISTRY ORDERABLES [facility] [place] [address] documented in this encounter Visit Diagnoses Diagnosis Intermittent claudication Peripheral vascular disease, unspecified Atherosclerosis of [place] artery of both lower extremities with intermittent claudication Atherosclerosis of [place] arteries of the extremities with intermittent claudication documented in this encounter Care Teams Slat Basket Maker Helper Machine Relationship Specialty Start Date End Date Saundra Reddy APRN PCP - General Family Medicine 01/02/18 12/02/18 documented as of this encounter
--- OUTSIDE RECORDS SUMMARY | 2024-04-10 15:02 | XMS_ITS | Encounter Summary ---
Author Organization [facility] Address [facility] [place] [address] Care Team Providers Care Food Services Coordinator Name Role Phone Saundra Reddy SHEREE Primary Care Provider [phone] Reason for Visit * Reason Comments Claudication pt here for ct and c laudicatin le pt states on ambulation and going up stairs pt states most time starting in the thigh area Encounter Details Date Type Department Care Team (Late st Contact Info) Description 01/22/2018 10:00 AM EDT Office Visit [place] [address] Yves Vegas MD [facility] [place] [address] Abdominal aortic atherosclerosis; Atherosclerosis of aortic bifurcation [...] 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 Shehas needed to take some time off [...] deployment of an Endologix AFX unibody bifurcated qiqfy-fy-tawgo endograft. We should do this in the [...] arteries documented in this encounter Care Teams Food Services Coordinator Relationship Specialty Start Date End Date Saundra Reddy, SHEREE PCP - General Family Medicine 01/02/18 12/02/18 documented as of this encounter
--- OUTSIDE RECORDS SUMMARY | 2024-04-10 15:02 | XMS_ITS | Encounter Summary ---
Author Organization [facility] [place] [address] Care Team Providers Care Tanner Rotary Drum Continuous Process Name Role Phone Saundra Reddy APRN Primary Care Provider [phone] Reason for Visit * Consultation (Urgent) - Closed Specialty Diagnoses / Procedures Referred By Contwilberto t Referred To Contact Vascular Surgery Diagnoses leg pain renal artery stenosis Saundra Reddy APRN [address] [place] [address] [facility] Vascular Lab [address] [address] Referral ID Status Reason Start Date Expiration Date V isits Requested Visits Authorized [id number] Closed Consult, Test & Treat Connection Center 12/31/2017 12/31/2018 2 2 Encounter Details Date Type Department Care Team (Latest Contact Info) Description 01/02/2018 7:49 AM EDT - 01/02/2018 11:59 PM EDT Hospital Encounter [place] [address] Azucena Evans [place] Intermittent claudication; [...] Text Report Department: Vascular Surgery Lab Patient: [id number] (EMILIANA FARMER) CPT: 63548 ICD10: Z98.890;I70.1 Referring Physician: PETE GILBERT ?? [...] AM EDT Pete Gilbert MD VASCULAR [facility]A [facility] VASCUBASE * SHA, legs, multiple levels (01/02/2018 8:00 AM EDT) VB Text Report Department: Vascular Surgery Lab Patient: [id number] (EMILIANA FARMER) CPT: 73042 ICD10: I70.213;I73.9 Referring Physician: PETE GILBERT ?? [...] Brachial Artery ?170 ? Common Femoral Artery ?[place]-Biphasi c ?? Popliteal Artery ? Monophasic ? [...] AM EDT Pete Gilbert MD VASCULAR ORDERA [facility] Performing Organization Address City/State/[facility] Co de Phone Number VASCUBASE documented in this encounter Visit Diagnoses Diagnosis Intermittent claudication Peripheral vascular disease, unspecified History of renal stent documented in this encounter Care Teams Tanner Rotary Drum Continuous Process Relationship Specialty Start Date End Date Saundra Reddy, 3RD GRADE TEACHER PCP - General Family Medicine 01/02/18 12/02/18 documented as of this encounter
--- OUTSIDE RECORDS SUMMARY | 2024-04-10 15:02 | XMS_ITS | Encounter Summary ---
Author Organization [facility] Address [facility] [place] [address] Care Team Providers Care Corrections Officer Name Role Phone Jorg eLuisSaundra hogan Sunil BENTLEY Primary Care Provider [phone] Reason for Referral * Diagnostic Test (Routine) - Closed Specialty Diagnoses / Procedures Referred By Contac t Referred To Contact Radiology Diagnoses Atherosclerosis of [place] artery of both lower extremities with intermittent claudication Procedures CT Angiogram Aorta Lower Extremity Runoff Lesley Serrano PA [facility] [place] [address] [facility] [place] [address] Referral ID Status Reason Start Date Expiration Date V isits Requested Visits Authorized [id number] Closed Specialty Service Requested 01/07/2018 02/23/2018 1 1 Reason for Visit * Diagnostic Test (Routine) - Closed Specialty Diagnoses / Procedures Referred By Contac t Referred To Contact Radiology Diagnoses Atherosclerosis of [place] artery of both lower extremities with intermittent claudication Procedures CT Angiogram Aorta Lower Extremity Runoff Lesley Serrano PA [facility] [place] [address] [facility] [place] [address] Referral ID Status Reason Start Date Expiration Date V isits Requested Visits Authorized [id number] Closed Specialty Service Requested 01/07/2018 02/23/2018 1 1 Encounter Details Date Type Department Care Team (Latest Contact Info) Description 01/22/2018 7:12 AM EDT - 01/22/2018 11:59 PM EDT Hospital [place] [address] Consuelo Toledo MD [facility] [place] [address] Atherosclerosis of [place] artery of both lower extremities with intermittent [...] Routine 01/22/2018 7:58 AM EDT Atherosclerosis of [place] artery of both lower extremities with intermittent [...] of the remainder. 3. ??Patent bilateral three-vessel nfcwk-knz-hsxw runoff to the foot ?? 4. ??Remainder [...] of the remainder. 3. Patent bilateral three-vessel snqwa-pnf-qeqm runoff to the foot 4. Remainder of [...] this encounter Visit Diagnoses Diagnosis Atherosclerosis of [place] artery of both lower extremities with intermittent claudication Atherosclerosis of [place] arteries of the extremities with intermittent claudication [...] mLs documented in this encounter Care Teams Corrections Officer Relationship Specialty Start Date End Date Saundra Reddy APRN PCP - General Family Medicine 01/02/18 12/02/18 documented as of this encounter
--- OUTSIDE RECORDS SUMMARY | 2024-04-10 15:02 | XMS_ITS | Encounter Summary ---
Author Organization [facility] [place] [address] Care Team Providers Care Sales Promoter Name Role Phone Risa Richards APRN Primary Care Provider [phone] Encounter Details Date Type Department Care Team (Late st Contact Info) Description 12/31/2017 Orders [place] [id number] Emmy Green, UPSETTER HELPER Intermittent claudication; History of renal stent Social [...] Text Report Department: Vascular Surgery Lab Patient: [id number] (EMILIANA FARMER) CPT: 30672 ICD10: Z98.890;I70.1 Referring Physician: PETE GILBERT ?? [...] Text Report Department: Vascular Surgery Lab Patient: [id number] (EMILIANA FARMER) CPT: 22690 ICD10: I70.213;I73.9 Referring Physician: PETE GILBERT ?? [...] Brachial Artery ?170 ? Common Femoral Artery ?Merced-Biphasi c ?? Popliteal Artery ? Monophasic ? [...] stent documented in this encounter Care Teams Sales Promoter Relationship Specialty Start Date End Date Risa Richards APRN PCP - General Family Medicine 12/31/17 01/01/18 documented as of this encounter
[2024-04-10 16:41] LABS: Vitamin D 25 Total 26.7 ng/mL (30-100)
[2024-04-14 11:27] LABS: Free Retinol (Vitamin A) 57.5 mcg/dL (32.5-78.0)
[2024-04-14 14:00] LABS: Tissue Transglutaminase Ab IgA <1.2 U/mL (<4.0); Tissue Transglutaminase Ab IgG 1.4 U/mL
[2024-04-23 16:12] LABS: Pantothenic Acid (VitB5), S 131.43 ug/L
== END 2024-04-10 14:59 | disposition home or self-care (01) ==
LOC: LBO 14:58
PROVIDERS: PCP Nurse Practitioner Family; Visit Provider Student in an Organized Health Care Education/Training Program
DX: R21 Rash and other nonspecific skin eruption (principal); E55.9 Vitamin D deficiency, unspecified
CPT/HCPCS: 36415; 82306; 84591; 86364; 83516; 84590

== ENCOUNTER 2024-05-01 11:11 | Day surgery (SDC) | payer MEDICAID, SELFPAY ==
[2024-05-01] VITALS (17 sets, daily range): BP systolic 115–175; BP diastolic 57–84; PULSE 63–82; RESP 12–24; TEMP 35.7–36.8; O2SAT 96–100; BMI 19.0
--- NOTE | 2024-05-01 11:26 | ANES.PREOP_ITS ---
General Info Date of Service Date Performed: 05/01/24 Height: 5 ft 1 in Weight: 45.713 kg Body Mass Index (BMI): 19.0 Surgical Procedure: Operation Date: 05/01/24 13:20 Proposed Procedure Side Surgeon p Elbow Arthroscopy w/Debridement Lateral Epicondylitis Right Rip Frost MD Actual Procedure Side Surgeon p Elbow Arthroscopy w/Debridement Lateral Epicondylitis Right Rip Frost MD Pre-Op Diagnosis Post-Op Diagnosis Lateral epicondylitis of right elbow Meds Allergies and Home Medications Allergies Allergy/AdvReac Type Severity Reaction Status Date / Time trazodone Allergy Severe [place]ig[place] me Verified 05/01/24 11:26 out venlafaxine (From Effexor) Allergy Intermediate [place] me Verified 05/01/24 11:26 out Home Medication ?Medication ?Instructions ?Recorded amlodipine 10 mg tablet 10 mg PO DAILY 10/15/19 aspirin 81 mg tablet,delayed 81 mg PO DAILY 10/15/19 release atorvastatin 40 mg tablet 40 mg PO QHS 10/15/19 amitriptyline 25 mg tablet 25 mg PO DAILY 07/30/23 bupropion HCl 100 mg tablet 100 mg PO BID 07/30/23 gabapentin 300 mg capsule 300 mg PO TID 07/30/23 lisinopril 10 mg tablet 10 mg PO DAILY 07/30/23 inhalational spacing device #1 ea 02/07/24 (Aerochamber MV spacer) triamcinolone acetonide 0.1 % 1 applic topical DIRECTED 04/29/24 topical cream Current Visit Medications: Current Medications Generic Name Dose Route Start Last Admin Trade Name Dahiana PRN Reason Stop Dose Admin Ringer's Solution 1,000 mls @ 30 mls/hr 05/01/24 06:00 IV 05/30/24 23:59 INFUSION MICHEL Cefazolin Sodium/Dextrose 2 gm in 50 mls @ 100 mls/hr 05/01/24 06:00 Ancef Duplex IVPB 05/01/24 18:00 PREOP MICHEL Tranexamic Acid/Sodium Chloride 1,000 mg in 100 mls @ 600 mls/hr 05/01/24 06:00 IVPB 05/01/24 18:00 PREOP MICHEL IV Miscellaneous Supplies 1 each 05/01/24 06:00 Iv Access IV 05/30/24 23:59 DIRECTED MICHEL Sodium Chloride 0 ml 05/01/24 06:00 Normal Saline Flush 10 Ml Syr IV 05/30/24 23:59 PRN PRN Sodium Chloride 0 ml 05/01/24 06:00 Normal Saline 10 Ml Vial IJ 05/30/24 23:59 DIRECTED PRN Sterile Water 0 ml 05/01/24 06:00 Water,Injection,Sterile 10 Ml Vial IJ 05/30/24 23:59 DIRECTED PRN PFSH Active Problems Active Problems: Problem Status Onset Code Lateral epicondylitis of right elbow Acute M77.11 S/P aortobifemoral bypass surgery Acute Z95.828 Nerve damage Acute T14.8XXA Medical History Medical History Renal artery stenosis Glucose intolerance Depression Alcohol abuse Skin lesion Tobacco use Gout Intermittent claudication Peripheral arterial occlusive disease Hypertension Aortoiliac occlusive disease Lesion of endometrium Elevated hemoglobin A1c Constipation Hernia RLQ per referral started 3 weeks ago (August 2019) Surgical History Surgical History History of abdominal surgery Vascular abdominal surgery (stents for occlusive disease) 2018 Tobacco Smoking/Tobacco Use Status: Current-Occasional Tobacco Type: cigarettes Alcohol Alcohol Intake: current Alcohol intake frequency: 3 or more drinks per day Substance Use Substance use: Daily Substance use type: marijuana Vital Signs and Lab Results Lab Results Blood Type / Crossmatch: 2 No Data to Display Complete Blood Count: 2 No Data to Display Complete Metabolic Panel: 2 No Data to Display Liver Function Panel: 2 No Data to Display Coagulation Panel: 2 No Data to Display Cardiac Panel: 2 No Data to Display Arterial Blood Gas: 2 No Data to Display Venous Blood Gas: 2 No Data to Display Pancreas Panel: 2 No Data to Display Thyroid Panel: 2 No Data to Display Infectious Disease: 2 No Data to Display Blood Cultures: 2 No Data to Display Toxicology Panel: 2 No Data to Display Anesthesia Assessment and Plan Anesthesia History Personal History: No History of Anesthesia Complications Family History: No Family History of Anesthesia Complications Exercise Tolerance Exercise Tolerance: Metabolic Equivalents>4 Pertinent Negatives Pertinent Negatives: No Symptoms of GERD and No History of CVA/TIA Cardiac & Pulmonary Exam Cardiac Exam: Normal S1/S2 Heart Sounds Pulmonary Exam: Clear Bilateral Breath Sounds Implantable Cardiac Device Does patient have a Pacemaker or an ICD?: No Airway Exam Known Difficult Airway: No Mallampati Class: 2 Mouth Opening: Normal (> 3cm) Thyromental Distance: Greater than 3 cm Neck Range of Motion: Full ROM Neck Circumference: Normal Teeth Condition: Normal Dentition and Loose or Chipped Tooth Numberin 1. chipped filling ASA Classification ASA Score: ASA 2 Emergency Case?: No NPO Status NPO Status: NPO Clears >2 hours, Solids >8 hours Anesthesia Plan Resuscitation Status: Full Code Anesthesia Technique: General Anesthesia Airway Planned: Endotracheal Tube Pain Management: Surgeon and patient request nerve block Monitors Used: Standard Monitors and SedLine
[2024-05-01] MEDS: Normal Saline 500 ML 30 ML IV (11:50)
--- NOTE | 2024-05-01 11:53 | ROE_ITS ---
Operative Note Operative Note PRE-OP DIAGNOSIS: Right elbow lateral epicondylitis POST-OP DIAGNOSIS: same PROCEDURE: Right elbow arthroscopy with debridement lateral epicondylitis, CPT # [address] SURGEON: Rip Frost BOX ESTIMATOR: None None ANESTHESIA TYPE: General LMA/ETT and Primary Nerve Block Refer to Anesthesia Record Patient was transported to: PACU Indications: Please see complete medical record for details. Findings: Moderate anterior and lateral synovitis. Intact cartilaginous surfaces. Thickened ECRB and to a lesser extent ECRL. Procedure Description: In the operating room, general anesthesia was induced. The patient was positioned lateral on the operating room table. All bony prominences were well- padded. Preoperative antibiotics were administered. The elbow was prepped and draped in the usual sterile fashion. The correct patient, procedure, and side of the procedure were all verified prior to incision. 20 cc of 0.25% bupivacaine containing epinephrine was used to insufflate the right elbow joint through the lateral soft spot. The rosanna and spread technique was used to establish the proximal anteromedial portal. A diagnostic arthroscopy of the anterior elbow compartment was performed with findings noted above. A 18-gauge needle needle was used to localize a modified direct lateral working portal for lateral epicondyle and common extensor origin debridement. The needle was used to set the superior and inferior margins of the resection as well as free up tendon from its bony origin. A scalpel was used to rosanna the skin followed by [place] blade to meticulously release the ECRB as well as adjacent ECRL tendon from the lateral epicondyle. Care was taken to work anterior to the midline of the radial head to preserve the radial collateral ligament. A 3.8 mm shaver was used to debride approximately 1 cm of diseased tendon and lightly abrade lateral epicondyle bony origin. Shaver was also used to remove the small amount of lateral and anterior synovitis. The elbow was drained of arthroscopic fluid. The medial and lateral portals were closed using 3-0 Monocryl in a buried interrupted fashion. Mastisol was applied about the incisions which were covered with Steri-Strips. Xeroform pieces were applied over both incisions and covered with dry 4 x 4 gauze. The radial pulse was 2+. The elbow was gently compressed with evelin bandage. The patient awoke from anesthesia without complication and was transferred to the recovery room in stable fashion. Date of Procedure: 05/01/24
--- NOTE | 2024-05-01 11:53 | W.PM.DSUDISC ---
Date of service: 05/01/24 Discharge Plan Disposition Patient Disposition: Home Condition: Stable Discharge Details Attending Provider: Rip Frost Primary Care Provider: JELLY MCCORD Home Meds and New Rx's Prescriptions: New naproxen 250 mg tablet 250 - 500 mg PO BID PRN (Reason: Moderate pain) Qty: 30 0RF oxycodone 5 mg tablet 5 - 10 mg PO Q4H PRN (Reason: Moderate to severe pain) Qty: 10 0RF Continued (DME) Aerochamber MV Spacer See Rx Instructions .Route Qty: 1 0RF Rx Instructions: As directed amlodipine 10 mg tablet 10 mg PO DAILY aspirin 81 mg tablet,delayed release (DR/EC) 81 mg PO DAILY atorvastatin 40 mg tablet 40 mg PO QHS amitriptyline 25 mg tablet 25 mg PO DAILY bupropion HCl 100 mg tablet 100 mg PO BID gabapentin 300 mg capsule 300 mg PO TID lisinopril 10 mg tablet 10 mg PO DAILY triamcinolone acetonide 0.1 % cream 1 applic TOPICAL DIRECTED Patient Comments: APPLY THIN LAYER TOPICALLY TO THE AFFECTED AREA TWICE DAILY Discharge Instructions Additional Instructions: Surgery: Right elbow arthroscopy with debridement lateral epicondylitis Activity: Weightbearing as tolerated. Advance range of motion as comfort allows. Important to restore full elbow extension as soon as possible. Recommend avoiding repetitive activities and heavy lifting for 6-8 weeks. A physical therapy prescription will be sent electronically to start in about 3 weeks. Prescriptions: Naproxen 250 mg take 1-2 every 12 hours with a meal as needed for moderate pain Oxycodone 5 mg take 1-2 every 4-6 hours as needed for severe pain You may use enct-hxm-bjqdiro Tylenol (acetaminophen) as needed for mild pain. These pain medications may be taken all at once or in different combinations as needed. Also, recommend Colace (docusate) as a stool softener as surgery and pain medicine cause constipation. You may try vxkt-ola-[id number] diphenhydramine (Benadryl) 25-50 mg nightly as a sleep aid Dressings: Leave dressing in place for 3 days. May then remove and leave open to air or cover incisions with Band-Aids. Leave the sticky Steri-Strips in place until they fall off or remove them after you shower. May shower after 5 days. Follow-up: 05/13/24 at 8:00 am at orthopaedics office. You may take off the leg compression stockings this evening at home. You may also leave them on a few days longer if you have a history of leg swelling or edema. Let us know right away if you develop any redness, drainage, fevers, chest pain, or trouble breathing. Do not drink alcohol or drive for at least 24 hours after anesthesia. Please call the office during business hours with any questions or concerns. Stand Alone Forms: Anesthesia Discharge Inst., Rene Suarez (DSU) Discharge Orders Discharge Orders: Discharge Order (Routine); Ordered 05/01/24 Ordered By: Erwin Gómez DS: Diagnosis Discharge Diagnosis (1) Lateral epicondylitis of right elbow: Status: Acute
--- NOTE | 2024-05-01 12:37 | W.ANESNERVE ---
Nerve Block Single Injection Procedure Date and Time Date Performed: 05/01/24 Procedure Start: 12:28 Location Where Procedure Performed Procedure Location: Day Surgery Unit Reason Performed: Postoperative Analgesia Requesting Provider: Rip Frost Timeout Performed Timeout Performed: Yes Monitoring Used ECG, Blood Pressure and SpO2 Sterility Sterility: Hand Hygiene, Surgical Cap, Surgical Mask, Sterile Gloves and Chlorhexidine Sedation Given During Procedure Sedation Given (Indicate Dose Given): No Sedation given Patient Mental Status Patient Mental Status: Awake Nerve Block 1st Nerve Block: Laterality: Right Block Type: Supraclavicular Ultrasound Image Saved?: Yes Needle / Catheter Used: 100mm SonoPlex II Local Anesthetic Bolus (Indicate Dose Given): Lidocaine used for local infiltration of skin, Injected in 3-5ml increments after negative blood aspiration, Bupivacaine 0.5% Dose:: 10 mL and Exparel Dose:: 10 mL Additives (Indicate Dose Given): None Ultrasound: Sterile probe cover and gel used Nerve Stimulator: Supplement to Ultrasound use and No twitch or parasthesia noted < 0.5 mA Paresthesia: None Procedure Tolerated: No Complications and Patient tolerated well Procedure Outcome: Successful Performed By: Manfred Glass Supervised By: Michael Zepeda
[2024-05-01] MEDS: ceFAZolin 2 GM/50 ML BAG IVPB (13:00)
[2024-05-01] MEDS: TRANEXAMIC ACID/SOD. CHL. 1,000 MG/100 ML BAG 600 MG IVPB (13:09)
[2024-05-01] MEDS: Bupivacaine 0.25% Pres-Free W/EPI 30 ML VIAL (13:23)
[2024-05-01] MEDS: EPINEPHrine 10 MG/10 ML ML (13:53)
--- NOTE | 2024-05-01 15:23 | W.ANESPOSTOP ---
Postoperative Evaluation Date, Time and Location Date Performed: 05/01/24 Time Performed: 15:23 Patient Location: Day Surgery Unit Vital Signs Most Recent Imported Vital Signs: Most Recent Vital Signs Temp Pulse Resp BP Pulse Ox 36.0 C L 68 13 149/69 H 100 05/01/24 14:50 05/01/24 14:50 05/01/24 14:50 05/01/24 14:50 05/01/24 14:50 Pain Score Most Recent Pain Score: Most Recent Pain Score Pain Level 2 05/01/24 14:50 Assessment Mental Status: Awake (Alert & Oriented to Patient Baseline) Airway and Respiratory Function: Patent airway with normal (patient baseline) respiratory exam Cardiovascular Function: Hemodynamically Stable Hydration Status: Adequately Hydrated Nausea & Vomiting: No Nausea or Vomiting Pain: Pt. Denies Any Pain (Reports discomfort because right pinky is numb. Discussed that patient can expect numbness for next three days. To let us know if numbness persists past weekend. ) Peripheral Nerve Block: Regional nerve block not resolved at time of post operative discharge
== END 2024-05-01 15:55 | disposition home or self-care (01) ==
LOC: SUR 11:12
PROVIDERS: PCP Nurse Practitioner Family; Visit Provider Student in an Organized Health Care Education/Training Program
PROC: (CPT 29830; principal; 2024-05-01 13:00)
DX: M77.11 Lateral epicondylitis, right elbow (principal)
CPT/HCPCS: 29837; 64415; C9290; J0131; J0665; J0690; J1100; J1805; J2003; J2405; J2704; J3010

== ENCOUNTER 2025-03-31 10:35 | Outpatient (REF) | payer MEDICAID, SELFPAY ==
[2025-03-31 17:32] LABS: ALT 15 U/L (10-49); AST 22 U/L (<34); Albumin 4.3 g/dL (3.4-5.0); Alkaline Phosphatase 120 U/L (46-116); Anion Gap 8.3 mmol/L (3-11); BUN 12 mg/dL (9-23); Bilirubin, Total 0.30 mg/dL (0.2-1.2); CO2 28.7 mmol/L (20.0-31.0); Calcium 9.4 mg/dL (8.3-10.6); Chloride 108 mmol/L (98-107); Cholesterol 200 mg/dL (<200); Glucose 111 mg/dL (74-106); HDL Cholesterol 90 mg/dL (>40); Potassium 4.9 mmol/L (3.5-5.1); Sodium 145 mmol/L (136-145); Total Protein 6.7 g/dL (5.7-8.2)
[2025-03-31 19:29] LABS: Hemoglobin A1C 6.3 % (<5.7)
== END 2025-03-31 10:36 | disposition home or self-care (01) ==
LOC: NCHCN 10:35
PROVIDERS: PCP Nurse Practitioner Family; Visit Provider Nurse Practitioner Family
DX: E78.5 Hyperlipidemia, unspecified (principal); I10 Essential (primary) hypertension; R73.03 Prediabetes
CPT/HCPCS: 80053; 80061; 83036

== ENCOUNTER → 2025-05-06 00:17 | Outpatient (CLI) | payer MEDICAID, SELFPAY ==
--- NOTE | 2025-05-06 | DI.CTLCSR_ITS ---
Exam(s) CT CHEST LUNG CANCER SCREEN EXAM: CT CHEST LUNG CANCER SCREEN CLINICAL HISTORY: CIGARETTE SMOKER,SCREENING FOR LUNG CA,f17.210 TECHNIQUE: Imaging Protocol: Axial computed tomography images with coronal and sagittal reformatted images were created and reviewed. Lung Computer Aided Detection (CAD) was utilized. COMPARISON: CT CT CHEST LUNG CANCER SCREEN from 09/26/[address] CHEST LUNG CANCER SCREEN from 12/04/2023 FINDINGS: Tracheobronchial tree: Patent where visualized. No bronchiectasis. Pulmonary parenchyma: No consolidation or dominant measurable mass. No architectural distortion. Lung Nodules: There are no suspicious pulmonary nodules. Mediastinum and Ronna: No dominant adenopathy or fluid collection. The esophagus is unremarkable. Thyroid gland: Unremarkable. Lymph nodes: Unremarkable. Pleura: No effusion or pneumothorax. Heart: The heart is not dilated. Coronary artery calcifications are present. No pericardial effusion. Aorta: Thoracic aorta non-dilated.Atherosclerotic calcification is present. Upper abdomen: Unremarkable. Soft Tissues: Unremarkable. Bones: Within normal limits. IMPRESSION: There are no suspicious pulmonary nodules. Lung RADS Cat 1 - Negative: No nodules and definitely benign nodules Lung-RADS 1.0 CATEGORIES: Category 0 - Prior chest CT exam(s) being located for comparison. Category 1 - Annual screening in 12 months. No nodules or definitely benign nodules. Category 2 - Annual screening in 12 months. Benign appearance. Nodules with low likelihood of becoming active cancer. Category 3 - 6-month follow-up. Probably benign. Short-term follow-up suggested. Nodules with low likelihood of becoming active cancer. Category 4A - 3-month follow-up and CT/PET if >8 mm in size. Suspicious finding. Findings which require additional testing. Category 4B - Findings which require additional testing and tissue sampling. Suspicious finding. Category 4X - Category 3 or 4 nodules with additional features or imaging findings that increases the suspicion of malignancy. Modifier S- Potentially clinically significant finding. (Non lung cancer) RADIATION DOSE DELIVERED: 19.71mGy.cm Total DLP 19.71mGy.cmTotal DLP DATA REPOSITORY: All CT scans at this facility are submitted to the National Radiology Data Registry (NRDR) Dose Index Registry (DIR) with the [employer] (A[employer]). RADIATION OPTIMIZATION: All CT scans at this facility use at least one of these dose optimization techniques: automated exposure control; mA and/or kV adjustment per patient size (includes targeted exams where dose is matched to clinical indication); or iterative reconstruction.
--- NOTE | 2025-05-06 | DI.MAMMO_ITS ---
Exam(s) MAMMO SCREENING EXAM: MAMMO SCREENING CLINICAL HISTORY: SCREENING,Z12.31 TECHNIQUE: Mammograms were interpreted according to the usual protocol including computer analysis with CAD system, tomosynthesis and C-view imaging. COMPARISON: 2022 FINDINGS: The breasts are composed of scattered fibroglandular densities, Breast Density category B. Right breast: Stable area of nodularity seen in the medial right breast. Suspicious masses or suspicious microcalcifications are seen. No skin thickening or abnormal axillary lymph nodes are seen. There has been no significant change from prior exams. Left breast: Area of nodular increased density in the superior left breast only on the MLO view. Spot compression views and ultrasound are requested for further evaluation. No suspicious calcifications. No skin thickening or abnormal lymph nodes. IMPRESSION: Left breast: BI-RADS Category 0 - Incomplete: Need additional imaging evaluation Right breast: Yearly screening mammography is recommended. Breast Density - Category B - There are scattered areas of fibroglandular density. Breast density Category C or D implies that the patient has dense breast tissue. Dense breast tissue can make it harder to find cancer on a mammogram. Dense breast tissue is also associated with an increased risk of breast cancer. This information about the result of the mammogram report was provided to the patient to raise their awareness. Use this report when you speak with the patient about their risks for breast cancer, which includes their family history. At that time, you may recommend additional screening tests (Ultrasound or MRI) as these tests may add significant information. A negative radiographic report should not delay biopsy if a dominant or clinically suspicious mass is present. Up to ten percent of cancers are not identified on mammography. A negative report may reinforce clinical impression. Adenosis and dense breasts may obscure an underlying neoplasm. False positive reports average 6 to 10%. Patient will receive a letter notifying them of these results.
== END ==
PROVIDERS: PCP Nurse Practitioner Family; Visit Provider Nurse Practitioner Family
DX: Z12.31 Encounter for screening mammogram for malignant neoplasm of breast (principal); R92.323 Mammographic fibroglandular density, bilateral breasts
CPT/HCPCS: 71271; 77063; 77067

== ENCOUNTER → 2025-05-12 00:37 | Outpatient (CLI) | payer MEDICAID, SELFPAY ==
--- NOTE | 2025-05-12 | DI.MAMMO_ITS ---
Exam(s) MG MAMMO SCREEN CALL BACK UNI US BREAST LT COMPLETE EXAM: MG MAMMO SCREEN CALL BACK UNI CLINICAL HISTORY: AREA NODULAR INCREASED DENSITY SUPERIOR LT BREAST R92.8 ABNL MAMMO. TECHNIQUE: Unilateral LEFT BREAST spot mammographic images obtained with 3D tomosynthesisand utilizing computer aided detection (CAD). . Complete LEFT breast Ultrasound was also performed, including all 4 quadrants, the retroareolar region, and the ipsilateral axilla. COMPARISON: Prior mammograms were reviewed. This additional imaging was performed due to findings described on the recent screening mammogram of 05/06/2025. FINDINGS: DIAGNOSTIC MAMMOGRAM: Additional mammographic views performed todayrender this area less concerning. COMPLETE LEFT BREAST ULTRASOUND: Ultrasound performed today reveals no evidence of solid or significant cystic lesions in all 4 quadrants.. Scanning of the ipsilateral axilla reveals no significant adenopathy. IMPRESSION: 1. No radiographic evidence of malignancy in left breast. 2. Negative complete left breast ultrasound Appropriate follow-up as discussed by myself with the patient today is PE left breast mammogram in 6 months. The patient was informed of these findings and recommendations by myself prior to leaving the department today. BI-RADS Category 3 - 6 month - Probably Benign Finding: Recommend follow-up mammography in 6 months Breast Density - Category B - There are scattered areas of fibroglandular density. Breast density Category C or D implies that the patient has dense breast tissue. Dense breast tissue can make it harder to find cancer on a mammogram. Dense breast tissue is also associated with an increased risk of breast cancer. This information about the result of the mammogram report was provided to the patient to raise their awareness. Use this report when you speak with the patient about their risks for breast cancer, which includes their family history. At that time, you may recommend additional screening tests (Ultrasound or MRI) as these tests may add significant information. A negative radiographic report should not delay biopsy if a dominant or clinically suspicious mass is present. Up to ten percent of cancers are not identified on mammography. A negative report may reinforce clinical impression. Adenosis and dense breasts may obscure an underlying neoplasm. False positive reports average 6 to 10%. Patient will receive a letter notifying them of these results.
== END ==
LOC: DI 00:38
PROVIDERS: PCP Nurse Practitioner Family; Visit Provider Nurse Practitioner Family
DX: Z12.31 Encounter for screening mammogram for malignant neoplasm of breast (principal)
CPT/HCPCS: 76642; 77063; 77067